=== PATIENT | male | born 1985 | race Caucasian/White ===

== ENCOUNTER 2016-10-11 13:04 | Observation (INO) | payer SELFPAY ==
[~2016-10-11] VITALS: Ht 172.7 cm; Wt 80.3 kg
[2016-10-11] MEDS ORDERED: ONDANSETRON INJ 2 MG/ML 2 ML VIAL IV STA ×2 (13:47→15:11)
[2016-10-11] MEDS ORDERED: SODIUM CHLORIDE 0.9% 1000ML 2,000 ML IV STA (13:47)
[2016-10-11 13:57] LABS: BASO % 0.3 %; BASO ABS # 0.02 K/uL (0-0.2); COMPLETE YES; EOS % 0.3 %; HEMATOCRIT 41.3 % (42-52); IG% 0.3 %; LYMPH % 11.7 %; LYMPH ABS # 0.68 K/uL (1.2-3.4); MEAN CORPUSCULAR HEMOGLOBIN 36.7 pg (25-34); MEAN CORPUSCULAR HGB CONC 36.3 g/dl (32-36); MEAN PLATELET VOLUME 9.7 fL (7.4-10.4); MONO % 12.2 %; NEUT % 75.2 %; PLATELET COUNT 125 K/uL (130-400); RED BLOOD COUNT 4.09 M/uL (4.7-6.1); WHITE BLOOD COUNT 5.82 K/uL (4.8-10.8)
[2016-10-11 14:15] LABS: BUN/CREATININE RATIO 4.3 (10-20); CALCIUM 8.8 mg/dl (8.5-10.1); CREATININE 0.9 mg/dl (0.60-1.40); POTASSIUM 3.4 mmol/L (3.5-5.1)
--- NOTE | 2016-10-11 14:31 | DIAGNOSTIC IMAGING REPORT ---
PA CHEST WITH ABDOMINAL SERIES CLINICAL HISTORY: Nausea and vomiting of several days' duration. Epigastric abdominal pain. FINDINGS: 2 PA chest radiographs are obtained. No prior studies are available for comparison at the time of dictation. The cardiomediastinal silhouette is unremarkable. The lungs and pleural spaces are clear. No pneumothorax is seen. The bony thorax is grossly intact. Supine and erect abdominal radiographs are obtained. No prior studies are available for comparison at the time of dictation. There is a nonobstructed abdominal bowel gas pattern. No evidence of intraperitoneal free air is seen. There are no abnormal abdominal calcifications. The lumbosacral spine and bony pelvis appear intact. IMPRESSION: 1. No active disease in the chest. 2. Nonobstructed abdominal bowel gas pattern. Electronically signed by: Ghanshyam Jimenez M.D. 10/11/2016 2:29 PM
--- NOTE | 2016-10-11 14:55 | DIAGNOSTIC IMAGING REPORT ---
ABDOMINAL ULTRASOUND, RIGHT UPPER QUADRANT HISTORY: Epigastric pain. COMPARISON: The bowel series performed earlier today. FINDINGS: Hepatic echogenicity is increased. This suggests fatty infiltration. No hepatic lesions are identified. There is no biliary ductal dilatation. No gallstones are identified. The pancreas is obscured by overlying bowel gas. There is no right hydronephrosis. IMPRESSION: 1. No gallstones or biliary ductal dilatation. 2. Fatty liver. 3. Largely obscured pancreas. Electronically signed by: Josue Peña M.D. 10/11/2016 2:53 PM
[2016-10-11] MEDS ORDERED: MECLIZINE HCL 25 MG TAB PO STA (15:11)
[2016-10-11] MEDS ORDERED: OPTIRAY 320 IV PRN (15:15)
--- NOTE | 2016-10-11 15:44 | DIAGNOSTIC IMAGING REPORT ---
CT ABD/PELVIS IV CONTRAST ONLY CLINICAL HISTORY: Abdominal pain, nausea, vomiting. COMPARISON STUDY: Biliary ultrasound dated 10/11/2016 TECHNIQUE: Following the IV administration of 116 mL of Optiray-320, CT scan of the abdomen and pelvis was performed from the lung bases to the proximal femurs. Images are reviewed in the axial, sagittal, and coronal planes. IV contrast was administered without complication. CT DOSE: 337.73 mGy.cm FINDINGS: Lower chest: The heart is normal in size and configuration, without pericardial effusion. The lung bases and pleural spaces are clear. Liver: There is severe hepatic steatosis. No focal masses are visualized. Gallbladder: Unremarkable. Spleen: Normal in size and attenuation. Pancreas: Unremarkable. Adrenal glands: Unremarkable. Kidneys: There is symmetric renal cortical enhancement. The kidneys are normal in size without hydronephrosis. Bowel: There are no transition zones indicate bowel obstruction. The appendix appears normal. There is no acute diverticulitis. There is proliferation of the submucosal fat within the colon. Peritoneum: There is no intraperitoneal free air or abdominal ascites. Vasculature: The abdominal aorta is normal in course and caliber. Adenopathy: None. Pelvic viscera: The bladder, and pelvic viscera are unremarkable. Skeletal structures: No destructive osseous lesions are seen. IMPRESSION: 1. No evidence of bowel obstruction. No evidence of free air 2. Normal appendix 3. No evidence of acute diverticulitis 4. Hepatic steatosis 5. Nonspecific proliferation of the submucosal fat within the colon. Correlation with any history of inflammatory bowel disease is recommended. Electronically signed by: Jabier Puentes M.D. 10/11/2016 3:42 PM
[2016-10-11 16:14] LABS: URINE APPEARANCE CLEAR (CLEAR); URINE BILIRUBIN NEG (NEG); URINE COLOR YELLOW; URINE NITRITE NEG (NEG); URINE SPECIFIC GRAVITY 1.023 (1.000-1.030); UROBILINOGEN NEG (NEG); ZZUR CULT IF INDIC CLEAN CATCH NO
[2016-10-11 16:17] LABS: MANUAL MICROSCOPIC REQUIRED? NO; REVIEW REQ? NO
[2016-10-11] MEDS ORDERED: ONDANSETRON INJ 2 MG/ML 2 ML VIAL IV PRN (17:00)
[2016-10-11] MEDS ORDERED: LORAZEPAM 2 MG/ML 1 ML VIAL IV PRN (17:00)
[2016-10-11] MEDS ORDERED: IV FLUIDS COMPLETED PRN (17:15)
--- NOTE | 2016-10-11 17:28 | History and Physical ---
History & Physical Date & Time of Service: Oct 11, 2016 at 16:58 Chief Complaint: Shaking, Dizzy, Nauseous, Upset Stomach Primary Care Physician: No Doctor, Assigned History of Present Illness Source: patient This is a 31 yo m presenting to us with N&V and general malaise. He notes that for the last couple of days he has been suffering from epigastric pain, N&V and fatigue. He did have some improvement yesterday with significant worsening today. He has not vomited today however continues to be nauseated. He did have a fever with chills and diaphoresis two days prior. He has not travelled recently, no recent antibiotics, no sick contacts, no "new" or "suspect" foods. He had some improvement of symptoms after receiving medication in ED His abdominal pain is epigastric ache and a 3/10. No radiation. No significant agg/ alleviating factors. He does note that he drinks usually on weekends to excess but not on a daily basis. Past Medical/Surgical History No significant PMHx Family History Patient reports no known family medical history. Social History Smoking Status: Current Every Day Smoker (5-10 cig/ day x 10 years) Smokeless Tobacco Use: No Alcohol Use: binge on weekends Drug Use: none Marital Status: single Housing status: lives with family Multi-Drug Resistant Organisms History of MDRO: No Allergies Coded Allergies: Amoxicillin (Unverified Allergy, Intermediate, UNKNOWN, 10/11/16) CHILDHOOD ALLERGY, PER MOM Penicillins (Unverified Allergy, Intermediate, UNKNOWN, 10/11/16) CHILDHOOD ALLERGY, PER MOM. Home Medications No Active Prescriptions or Reported Meds Review of Systems Constitutional: + chills, + fever, + sweats, + weakness Eyes: No worsening of vision ENT: No hearing loss Respiratory: No cough, No dyspnea at rest, No dyspnea on exertion, No shortness of breath, No sputum, No wheezing Cardiovascular: No chest pain Abdomen: + nausea, + vomiting, No constipation, No diarrhea, No pain Musculoskeletal: No joint pain, No muscle pain Genitourinary - Male: No dysuria, No hematuria Neurologic: + weakness, No memory loss, No numbness/tingling Psychiatric: No anxiety, No depression symptoms Endocrine: + fatigue Integumentary: No rash Physical Exam Vital Signs Date Time Temp Pulse Resp B/P Pulse Ox O2 Delivery O2 Flow Rate FiO2 10/11/16 15:06 37.4 73 20 146/84 97 10/11/16 14:08 78 16 146/89 98 10/11/16 13:21 37.0 100 18 151/92 98 Room Air General Appearance: WD/WN, no apparent distress Head: normocephalic, atraumatic Eyes: normal inspection ENT: normal ENT inspection Neck: supple Respiratory/Chest: lungs clear, normal breath sounds, no respiratory distress, no accessory muscle use Cardiovascular: regular rate, rhythm, no murmur Abdomen/GI: normal bowel sounds, non tender, soft, no organomegaly Back: normal inspection, no CVA tenderness Extremities/Musculoskelatal: normal inspection, no calf tenderness, no pedal edema Neurologic/Psych: alert, normal mood/affect, oriented x 3 Skin: normal color, warm/dry, no rash Lymphatic: no adenopathy Diagnostics Laboratory Results Results Past 24 Hours Test 10/11/16 13:45 10/11/16 15:53 Range/Units White Blood Count 5.82 4.8-10.8 K/uL Red Blood Count 4.09 4.7-6.1 M/uL Hemoglobin 15.0 14.0-18.0 g/dL Hematocrit 41.3 42-52 % Mean Corpuscular Volume 101.0 80-100 fL Mean Corpuscular Hemoglobin 36.7 25-34 pg Mean Corpuscular Hemoglobin Concent 36.3 32-36 g/dl Platelet Count 125 130-400 K/uL Mean Platelet Volume 9.7 7.4-10.4 fL Neutrophils (%) (Auto) 75.2 % Lymphocytes (%) (Auto) 11.7 % Monocytes (%) (Auto) 12.2 % Eosinophils (%) (Auto) 0.3 % Basophils (%) (Auto) 0.3 % Neutrophils # (Auto) 4.37 1.4-6.5 K/uL Lymphocytes # (Auto) 0.68 1.2-3.4 K/uL Monocytes # (Auto) 0.71 0.11-0.59 K/uL Eosinophils # (Auto) 0.02 0-0.5 K/uL Basophils # (Auto) 0.02 0-0.2 K/uL RDW Standard Deviation 45.8 36.4-46.3 fL RDW Coefficient of Variation 12.4 11.5-14.5 % Immature Granulocyte % (Auto) 0.3 % Immature Granulocyte # (Auto) 0.02 0.00-0.02 K/uL Sodium Level 139 136-145 mmol/L Potassium Level 3.4 3.5-5.1 mmol/L Chloride Level 102 98-107 mmol/L Carbon Dioxide Level 24 21-32 mmol/L Anion Gap 13.0 3-11 mmol/L Blood Urea Nitrogen 4 7-18 mg/dl Creatinine 0.90 0.60-1.40 mg/dl Est Creatinine Clear Calc Drug Dose 122.8 ml/min Estimated GFR () 131.4 Estimated GFR (Non- 113.4 BUN/Creatinine Ratio 4.3 10-20 Random Glucose 119 70-99 mg/dl Calcium Level 8.8 8.5-10.1 mg/dl Total Bilirubin 2.6 0.2-1 mg/dl Direct Bilirubin 0.9 0-0.2 mg/dl Aspartate Amino Transf (AST/SGOT) 196 15-37 U/L Alanine Aminotransferase (ALT/SGPT) 129 12-78 U/L Alkaline Phosphatase 92 45-117 U/L Total Protein 7.8 6.4-8.2 gm/dl Albumin 3.7 3.4-5.0 gm/dl Lipase 212 73-393 U/L Urine Color YELLOW Urine Appearance CLEAR CLEAR Urine pH 8.0 4.5-7.5 Urine Specific Stanton 1.023 1.000-1.030 Urine Protein NEG NEG Urine Glucose (UA) NEG NEG Urine Ketones NEG NEG Urine Occult Blood NEG NEG Urine Nitrite NEG NEG Urine Bilirubin NEG NEG Urine Urobilinogen NEG NEG Urine Leukocyte Esterase SMALL NEG Urine WBC (Auto) 1-5 0-5 /hpf Urine RBC (Auto) 0-4 0-4 /hpf Urine Hyaline Casts (Auto) 0 0-5 /lpf Urine Epithelial Cells (Auto) 5-10 0-5 /lpf Urine Bacteria (Auto) NEG NEG Diagnostic Radiology [~ rep ct add3]] CT ABD/PELVIS IV CONTRAST ONLY CLINICAL HISTORY: Abdominal pain, nausea, vomiting. COMPARISON STUDY: Biliary ultrasound dated 10/11/2016 TECHNIQUE: Following the IV administration of 116 mL of Optiray-320, CT scan of the abdomen and pelvis was performed from the lung bases to the proximal femurs. Images are reviewed in the axial, sagittal, and coronal planes. IV contrast was administered without complication. CT DOSE: 337.73 mGy.cm FINDINGS: Lower chest: The heart is normal in size and configuration, without pericardial effusion. The lung bases and pleural spaces are clear. Liver: There is severe hepatic steatosis. No focal masses are visualized. Gallbladder: Unremarkable. Spleen: Normal in size and attenuation. Pancreas: Unremarkable. Adrenal glands: Unremarkable. Kidneys: There is symmetric renal cortical enhancement. The kidneys are normal in size without hydronephrosis. Bowel: There are no transition zones indicate bowel obstruction. The appendix appears normal. There is no acute diverticulitis. There is proliferation of the submucosal fat within the colon. Peritoneum: There is no intraperitoneal free air or abdominal ascites. Vasculature: The abdominal aorta is normal in course and caliber. Adenopathy: None. Pelvic viscera: The bladder, and pelvic viscera are unremarkable. Skeletal structures: No destructive osseous lesions are seen. IMPRESSION: 1. No evidence of bowel obstruction. No evidence of free air 2. Normal appendix 3. No evidence of acute diverticulitis 4. Hepatic steatosis 5. Nonspecific proliferation of the submucosal fat within the colon. Correlation with any history of inflammatory bowel disease is recommended. [~ rep ct add3]] PA CHEST WITH ABDOMINAL SERIES CLINICAL HISTORY: Nausea and vomiting of several days' duration. Epigastric abdominal pain. FINDINGS: 2 PA chest radiographs are obtained. No prior studies are available for comparison at the time of dictation. The cardiomediastinal silhouette is unremarkable. The lungs and pleural spaces are clear. No pneumothorax is seen. The bony thorax is grossly intact. Supine and erect abdominal radiographs are obtained. No prior studies are available for comparison at the time of dictation. There is a nonobstructed abdominal bowel gas pattern. No evidence of intraperitoneal free air is seen. There are no abnormal abdominal calcifications. The lumbosacral spine and bony pelvis appear intact. IMPRESSION: 1. No active disease in the chest. 2. Nonobstructed abdominal bowel gas pattern. ABDOMINAL ULTRASOUND, RIGHT UPPER QUADRANT HISTORY: Epigastric pain. COMPARISON: The bowel series performed earlier today. FINDINGS: Hepatic echogenicity is increased. This suggests fatty infiltration. No hepatic lesions are identified. There is no biliary ductal dilatation. No gallstones are identified. The pancreas is obscured by overlying bowel gas. There is no right hydronephrosis. IMPRESSION: 1. No gallstones or biliary ductal dilatation. 2. Fatty liver. 3. Largely obscured pancreas. Impression Assessment and Plan This is a 31 yo m with transaminitis and elevated bilirubin. As the AST>ALT and considering the recent holidays the patient may have elevated transaminases because of alcohol abuse. There is suspicion that there is chronic alcohol use because of the low potassium and PLT as well as a fatty infiltrated liver. Dehydration most likely secondary to viral infection - NSS / KCL 20 @ 200 cc/h - Obs admission on med surg - Influenza swab - continue to encourage oral rehydration - Zofran for nausea Transaminitis most likely secondary to alcohol abuse in the presence of a fatty liver - GGT and Mg levels - Hep C screen - recheck in am - Ativan for alcohol withdrawal - consider discussion about alcohol abuse and need for rehab Hypokalemia - supp with NSS/ KCL - recheck in am DVT prophylaxis - Enoxaparin FULL CODE Level of Care Med/Surg Resuscitation Status FULL RESUSCITATION VTE Prophylaxis VTE Risk Assessment Done? Y/N: Yes Risk Level: Low Given or contraindicated: Enoxaparin (Lovenox)SQ Social Service Consult None Apply Note Total Time: Critical Care 30 - 74 minutes Assessment and Plan ATTENDING ADDENDUM: I have seen and examined this patient, have directed their medical care, and agree with the H&P as noted above. Patient is a 31-year-old male who has developed epigastric discomfort only by nausea and vomiting 3-4 days ago, then had a sleep interval of feeling better not being back to normal, the symptoms returned again today with more intensity. He does not have any sick exposures that he is aware of , has not had any recent travels, questionable food intakes at home or at restaurants. He typically is in good health and his several illnesses unusual for him. He was noted to have abnormal liver tests on emergency department laboratories, which prompted referral from emergency department for admission. The patient denies chest pain, palpitations, shortness of breath, cough, lower extremity swelling, vision change, hearing change, sore throat, fevers, chills, sweats, weight change, pelvic pain, blood in urine or stool, dysuria, urinary frequency or urgency, memory loss, rash, abnormal bruising or bleeding, imbalance, focal weakness, arthralgias or myalgias, back or neck pain, night sweats, or allergy symptoms. The review of systems is otherwise negative other than for that already noted above, and at least 10 systems have been reviewed. The patient is awake, well-developed and adequately nourished, alert and oriented 3, normocephalic and atraumatic, looks fatigued and pale, lying in bed and in no acute distress. HEENT--PERRL, EOMI, mucous membranes and oropharynx dry. Neck--supple, no JVD or bruits, thyroid normal, trachea midline, no adenopathy. Heart--normal S1 and S2, no extra beats, no murmurs, rubs or gallops. Lungs--clear bilaterally with good air movement, no respiratory distress, no accessory muscle use. Abdomen--normal bowel sounds and soft, nontender and nondistended, no hernias or masses, no organomegaly. Extremities--no cyanosis, clubbing or edema. There are good distal pulses b/l. Dermatologic--normal skin turgor, normal color, warm and dry, no abnormal lymph nodes, no rash. Neurologic--cranial nerves II through XII grossly intact. Rheumatologic--normal range of motion, nontender, muscles and joints. Psychiatric--normal affect. Assessment and plan: Patient with general malaise symptoms, focal issues in the abdomen and abnormal liver enzymes. CT of the pelvis as does show fatty liver, and during his question of he does report weekly alcohol use, suspect that she is more toward her daily level. Next We will order a flu swab to rule out influenza. If his flu swab is negative , his primary treatment will be that of aggressive fluid rehydration and symptomatic treatment of nausea and vomiting with Zofran, and Protonix for acid reduction. If his epigastric pain is persistent and/or worsen, he may require an EGD to assess for possible gastric ulcer.
[2016-10-11 17:55] VITALS: O2SAT 95
[2016-10-11 18:18] LABS: INR 1.1 (0.9-1.1); PROTHROMBIN TIME (PATIENT) 11.4 SECONDS (9.0-12.0)
[2016-10-11 18:20] VITALS: Ht 172.7 cm; Wt 80.3 kg
[2016-10-11] MEDS ORDERED: LORAZEPAM INJ 1 MG in SYRINGE 0.5 ML IV PRN (18:30)
--- NOTE | 2016-10-11 18:31 | EMERGENCY ROOM VISIT NOTE ---
History Report prepared by Scribe: Rachel Kaur Under the Supervision of: Dr. Rustam Manuel D.O. First contact with patient: 13:46 Chief Complaint: NAUSEA Stated Complaint: SHAKING, DIZZY, NAUSEOUS, UPSET STOMACH Nursing Triage Summary: pt arrives to triage shaking. reports he is dizzy nauseated and vomiting x 3 today. had stomach flu the other day. has been feeling hot and cold. History of Present Illness The patient is a 31 year old male who presents to the Emergency Room with complaints of intermittent nausea for the past 3 days. He reports he had the stomach flu 2 days ago and was vomiting persistently. He is currently experiencing some pain in his umbilical region and has been vomiting again, after not vomiting at all yesterday. He reports his vomit is yellowish-clear. His last bowel movement was earlier today and normal. He denies any diarrhea. He admits to the chills but denies any fevers or cough or cold symptoms. He denies any recent sick contacts. He still has both his gallbladder and appendix. The patient denies any headache, change in vision, chest pain, shortness of breath, pain with urination, and melena. 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 A total of 10 systems reviewed and were otherwise negative. Past Medical & Surgical Medical Problems: (1) Elevated bilirubin (2) Transaminitis Social History Smoking Status: Current Every Day Smoker Alcohol Use: occasionally Drug Use: none Marital Status: single Housing Status: lives alone Occupation Status: employed Current/Historical Medications No Active Prescriptions or Reported Meds Allergies Coded Allergies: Amoxicillin (Unverified Allergy, Intermediate, UNKNOWN, 10/11/16) CHILDHOOD ALLERGY, PER MOM Penicillins (Unverified Allergy, Intermediate, UNKNOWN, 10/11/16) CHILDHOOD ALLERGY, PER MOM. Physical Exam Vital Signs Date Time Temp Pulse Resp B/P Pulse Ox O2 Delivery O2 Flow Rate FiO2 10/11/16 15:06 37.4 73 20 146/84 97 10/11/16 14:08 78 16 146/89 98 10/11/16 13:21 37.0 100 18 151/92 98 Room Air Physical Exam GENERAL: Patient is alert, sitting up in bed, disheveled appearing, well nourished, no acute distress, non-toxic EYE EXAM: normal conjunctiva OROPHARYNX: no exudate, no erythema, lips, buccal mucosa, and tongue normal and mucous membranes are moist NECK: supple, no nuchal rigidity, no adenopathy, non-tender LUNGS: Clear to auscultation. Normal chest wall mechanics HEART: no murmurs, S1 normal and S2 normal ABDOMEN: abdomen soft, tender to palpation in epigastric region, normo-active bowel sounds, no masses, no rebound or guarding. BACK: Back is symmetrical on inspection and there is no deformity, no midline tenderness, no CVA tenderness. SKIN: no rashes and no bruising UPPER EXTREMITIES: upper extremities are grossly normal. LOWER EXTREMITIES: No pitting edema. NEURO EXAM: Normal sensorium, cranial nerves II-XII grossly intact, normal speech, no gross weakness of arms, no gross weakness of legs. Gross sensation intact. Medical Decision & Procedures ER Provider Diagnostic Interpretation: This X-Ray was reviewed and interpreted by myself and the radiologist. PA CHEST WITH ABDOMINAL SERIES IMPRESSION: 1. No active disease in the chest. 2. Nonobstructed abdominal bowel gas pattern. Electronically signed by: Ghanshyam Jimenez M.D. 10/11/2016 2:29 PM This Ultrasound was reviewed and interpreted by the radiologist and reviewed by myself. ABDOMINAL ULTRASOUND, RIGHT UPPER QUADRANT IMPRESSION: 1. No gallstones or biliary ductal dilatation. 2. Fatty liver. 3. Largely obscured pancreas. Electronically signed by: Josue Peña M.D. 10/11/2016 2:[address] scan was reviewed and interpreted by the radiologist and reviewed by myself. CT ABD/PELVIS IV CONTRAST ONLY IMPRESSION: 1. No evidence of bowel obstruction. No evidence of free air 2. Normal appendix 3. No evidence of acute diverticulitis 4. Hepatic steatosis 5. Nonspecific proliferation of the submucosal fat within the colon. Correlation with any history of inflammatory bowel disease is recommended. Electronically signed by: Jabier Puentes M.D. 10/11/2016 3:42 PM Laboratory Results 10/11/16 13:45 Red Blood Count 4.09, Mean Corpuscular Volume 101.0, Mean Corpuscular Hemoglobin 36.7, Mean Corpuscular Hemoglobin Concent 36.3, Mean Platelet Volume 9.7, Neutrophils (%) (Auto) 75.2, Lymphocytes (%) (Auto) 11.7, Monocytes (%) ( Auto) 12.2, Eosinophils (%) (Auto) 0.3, Basophils (%) (Auto) 0.3, Neutrophils # (Auto) 4.37, Lymphocytes # (Auto) 0.68, Monocytes # (Auto) 0.71, Eosinophils # ( Auto) 0.02, Basophils # (Auto) 0.02 10/11/16 13:45 Test 10/11/16 13:45 10/11/16 15:53 White Blood Count 5.82 K/uL (4.8-10.8) Red Blood Count 4.09 M/uL (4.7-6.1) Hemoglobin 15.0 g/dL (14.0-18.0) Hematocrit 41.3 % (42-52) Mean Corpuscular Volume 101.0 fL (80-100) Mean Corpuscular Hemoglobin 36.7 pg (25-34) Mean Corpuscular Hemoglobin Concent 36.3 g/dl (32-36) Platelet Count 125 K/uL (130-400) Mean Platelet Volume 9.7 fL (7.4-10.4) Neutrophils (%) (Auto) 75.2 % Lymphocytes (%) (Auto) 11.7 % Monocytes (%) (Auto) 12.2 % Eosinophils (%) (Auto) 0.3 % Basophils (%) (Auto) 0.3 % Neutrophils # (Auto) 4.37 K/uL (1.4-6.5) Lymphocytes # (Auto) 0.68 K/uL (1.2-3.4) Monocytes # (Auto) 0.71 K/uL (0.11-0.59) Eosinophils # (Auto) 0.02 K/uL (0-0.5) Basophils # (Auto) 0.02 K/uL (0-0.2) RDW Standard Deviation 45.8 fL (36.4-46.3) RDW Coefficient of Variation 12.4 % (11.5-14.5) Immature Granulocyte % (Auto) 0.3 % Immature Granulocyte # (Auto) 0.02 K/uL (0.00-0.02) Anion Gap 13.0 mmol/L (3-11) Est Creatinine Clear Calc Drug Dose 122.8 ml/min Estimated GFR () 131.4 Estimated GFR (Non- 113.4 BUN/Creatinine Ratio 4.3 (10-20) Calcium Level 8.8 mg/dl (8.5-10.1) Magnesium Level 1.7 mg/dl (1.8-2.4) Total Bilirubin 2.6 mg/dl (0.2-1) Direct Bilirubin 0.9 mg/dl (0-0.2) Aspartate Amino Transf (AST/SGOT) 196 U/L (15-37) Alanine Aminotransferase (ALT/SGPT) 129 U/L (12-78) Alkaline Phosphatase 92 U/L (45-117) Total Protein 7.8 gm/dl (6.4-8.2) Albumin 3.7 gm/dl (3.4-5.0) Lipase 212 U/L (73-393) Urine Color YELLOW Urine Appearance CLEAR (CLEAR) Urine pH 8.0 (4.5-7.5) Urine Specific [place] 1.023 (1.000-1.030) Urine Protein NEG (NEG) Urine Glucose (UA) NEG (NEG) Urine Ketones NEG (NEG) Urine Occult Blood NEG (NEG) Urine Nitrite NEG (NEG) Urine Bilirubin NEG (NEG) Urine Urobilinogen NEG (NEG) Urine Leukocyte Esterase SMALL (NEG) Urine WBC (Auto) 1-5 /hpf (0-5) Urine RBC (Auto) 0-4 /hpf (0-4) Urine Hyaline Casts (Auto) 0 /lpf (0-5) Urine Epithelial Cells (Auto) 5-10 /lpf (0-5) Urine Bacteria (Auto) NEG (NEG) Laboratory results per my review. Medications Administered Medications (Trade) Dose Ordered Sig/Paras Route Start Time Stop Time Status Last Admin Dose Admin Sodium Chloride (Nss 1000ml) 2,000 ml @ 999 mls/hr Q2H1M STAT IV 10/11/16 13:47 10/11/16 15:47 DC 10/11/16 13:47 999 MLS/HR Ondansetron HCl (Zofran Inj) 4 mg NOW STAT IV 10/11/16 13:47 10/11/16 13:48 DC 1/2/17 14:06 4 MG Ondansetron HCl (Zofran Inj) 4 mg NOW STAT IV 10/11/16 15:11 10/11/16 15:12 DC 10/11/16 15:20 4 MG Meclizine HCl (Antivert Tab) 25 mg NOW STAT PO 10/11/16 15:11 10/11/16 15:12 DC 10/11/16 15:20 25 MG ED Course ED COURSE: Vital signs were reviewed and showed normal vital signs. The patients medical record was reviewed The above diagnostic studies were performed and reviewed. ED treatments and interventions as stated above. 1347: Zofran 4 mg IV, NSS 2000 ml @ 999 mls/hr IV. 1353: The patient was evaluated in room A10. A complete history and physical examination was performed. 1511: Meclizine 25 mg PO, Zofran 4 mg IV. 1611: I discussed the patients case with Dr. Lopez, [facility]. He recommends we hold on antibiotics and have him evaluated by hospital medicine. 1625: I discussed the patients case with Dr. Leiva, [facility] Hospitalist. The patient will be further evaluated. 1630: Upon reevaluation, the patient is resting comfortably. I discussed my findings with the patient and he understands and agrees with the treatment plan. Based on the patients age, coexisting illnesses, exam and lab findings the decision to treat as an inpatient was made. The patient remained stable while under my care. The patient will be evaluated for further management. Medical Decision Differential diagnoses includes but is not limited to gastritis, peptic ulcer disease, GERD, gallbladder disease, pancreatitis, small bowel obstruction, acute coronary syndrome, pericarditis, ischemic bowel, irritable bowel disease, irritable bowel syndrome, appendicitis, diverticulitis, malignancy, hernia, urinary tract infection, torsion, perforation, trauma, infectious. Patient is a 31-year-old male who presents the ER for epigastric abdominal pain associated with nausea vomiting. Patient does have minimal tenderness on exam. Labs show transaminitis along with slight elevation of bilirubin at 2.5. No significant leukocytosis. Also shows no gallstones and a normal CBD. CT of his abdomen pelvis is otherwise remarkable. There is no signs of cholecystitis. No fevers. Discussed with GI and patient was admitted to internal medicine for further workup of a viral gastroenteritis versus choledocholithiasis. Consults Time Called: 1610 Consulting Physician: Dr. Lopez [facility] Returned Call: 1611 I discussed the patients case with Dr. Lopez [facility]. He recommends we hold on antibiotics and have him evaluated by hospital medicine. Additional Consults: Time Called: 1620 Consulted Physician: Dr. Leiva, [facility] Hospitalist Returned Call: 1625 Additional Comments: I discussed the patients case with Dr. Leiva [facility] Hospitalist. The patient will be further evaluated. Impression Primary Impression: Transaminitis Additional Impressions: Elevated bilirubin, Epigastric abdominal pain Scribe Attestation The scribe's documentation has been prepared under my direction and personally reviewed by me in its entirety. I confirm that the note above accurately reflects all work, treatment, procedures, and medical decision making performed by me. Departure Information Dispostion Being Evaluated By Hospitalist Prescriptions No Active Prescriptions or Reported Meds Patient Instructions A Signature Page, My [facility]
[2016-10-11 18:32] VITALS: BP 131/89; PULSE 55; TEMP 36.5; O2SAT 97
[2016-10-11] MEDS: NSS + 20MEQ KCL 1000ML 1,000 ML IV SCH ×2 (18:55→23:34)
[2016-10-11] MEDS ORDERED: MAGNESIUM CHLORIDE 64MG DELAYED REL TAB PO ONE (19:45)
[2016-10-11] MEDS ORDERED: ENOXAPARIN 40 MG/0.4 ML SYR SQ SCH (20:00)
[2016-10-12 00:09] VITALS: BP 130/87; PULSE 62; TEMP 36.8; O2SAT 98
[2016-10-12] MEDS: NSS + 20MEQ KCL 1000ML 1,000 ML IV SCH (04:54)
[2016-10-12 06:11] LABS: BASO % 0.2 %; BASO ABS # 0.01 K/uL (0-0.2); COMPLETE YES; EOS % 1.4 %; HEMATOCRIT 37.9 % (42-52); IG% 0.2 %; LYMPH % 27.5 %; LYMPH ABS # 1.33 K/uL (1.2-3.4); MEAN CELL VOLUME 104.4 fL (80-100); MEAN CORPUSCULAR HEMOGLOBIN 36.6 pg (25-34); MEAN CORPUSCULAR HGB CONC 35.1 g/dl (32-36); MEAN PLATELET VOLUME 10.2 fL (7.4-10.4); MONO % 12.4 %; NEUT % 58.3 %; PLATELET COUNT 112 K/uL (130-400); RED BLOOD COUNT 3.63 M/uL (4.7-6.1); WHITE BLOOD COUNT 4.83 K/uL (4.8-10.8)
[2016-10-12 06:43] LABS: CREATININE 0.83 mg/dl (0.60-1.40)
[2016-10-12 06:44] LABS: ALB/GLOB RATIO 0.9 (0.9-2); BUN/CREATININE RATIO 3.2 (10-20); CALCIUM 8.2 mg/dl (8.5-10.1); MAGNESIUM 1.9 mg/dl (1.8-2.4); POTASSIUM 4.2 mmol/L (3.5-5.1)
[2016-10-12 07:21] VITALS: BP 130/87; PULSE 46; TEMP 36.8; O2SAT 98
[2016-10-12] MEDS ORDERED: MAGNESIUM CHLORIDE 64MG DELAYED REL TAB PO SCH (09:00)
[2016-10-12] MEDS ORDERED: THIAMINE HCL 100 MG TAB PO SCH (09:00)
[2016-10-12] MEDS ORDERED: FLINTSTONES COMPLETE CHEWABLE TAB PO SCH (09:00)
[2016-10-12 14:08] VITALS: BP 130/87; PULSE 46; TEMP 36.8; O2SAT 98
[2016-10-12] MEDS ORDERED: FLV1 PO (15:13)
[2016-10-12] MEDS ORDERED: THM100 PO (15:13)
--- NOTE | 2016-10-12 15:14 | Discharge Instructions ---
Discharge Instructions Admission Reason for Admission: Elevated Bilirubin, Transaminitis Discharge Discharge Diagnosis / Problem: General malaise symptoms abnormal liver enzyme, alcoholic Discharge Goals Goal(s): Decrease discomfort, Improve function, Increase independence, Improve disease control, Improve nutritional status, Learn about illness, Diagnostic testing, Therapeutic intervention, Prevent Disease Progression, Specific goals Activity Recommendations Activity Limitations: resume your previous activity Lifting Limitations: none Exercise/Sports Limitations: none May Resume Sexual Activity: when tolerated Shower/Bathe: no limitations . Instructions / Follow-Up Instructions / Follow-Up you have general malaise symptoms with abnormal liver enzyme and mild Jaundice , possible from alcoholic you have heavy alcohol intake/smoking you have thrombocytopenia likely from alcoholic I recommend you to go home tomorrow , but you really want to go home with your own risks today your above medical conditions need to be see by a family physician in 5-7 days , however, you don't have family physician now, you did promise me to find a family doctor very soon and follow up your medical conditions, I hope you really do so - you need to follow up with your primary care physician in 1 week, - take medication as instructed, never overdose or any misuse, or take with alcohol, because misuse of medicine may cause organ damage or , call your primary care physician if have questions of medicaitons. - call your primary care physician OR go to local emergency room if has any fever/chill, chest pain, shortness of breathing, nausea/vomiting/abdominal pain , facial droop/slurry speech/local weakness, or if has any questions. - fall precaution - diet as instructed - you should understand that it is important to follow up the above instruction , and "not following the above instruction" may cause delayed or missed care of your medical conditions which may cause permanent organ damage and even . Current Hospital Diet Patient's current hospital diet: Regular Diet Discharge Diet Recommended Diet: Regular Diet Pending Studies Studies pending at discharge: no Medical Emergencies . Who to Call and When: Medical Emergencies: If at any time you feel your situation is an emergency, please call 911 immediately. . Non-Emergent Contact Non-Emergency issues call your: Primary Care Provider . . "Provider Documentation" section prepared by Sergio Rich. VTE Core Measure Inpt VTE Proph given/why not?: Enoxaparin (Lovenox)SQ
--- NOTE | 2016-10-12 15:15 | Discharge Summary ---
Discharge Summary Admission Date: Oct 11, 2016 at 16:59 Discharge Date: Oct 12, 2016 Discharge Disposition: Home Principal Diagnosis: general malaise symptoms with abnormal liver enzyme and mild Jaundice Problems/Secondary Diagnoses: general malaise symptoms with abnormal liver enzyme and mild Jaundice , possible from alcoholic heavy alcohol intake/smoking thrombocytopenia likely from alcoholic Procedures: no Consultations: no Medication Reconciliation New Medications: Folic Acid (Folic Acid) 1 Mg Tab 1 MG PO QAM for 30 Days, #30 TAB Thiamine HCl (Vitamin B-1) 100 Mg Tab 100 MG PO QAM for 30 Days, #30 TAB Discharge Exam feeling good, no c/o, eating, voiding good, no more malaise Review of Systems: Constitutional: No chills, No fatigue, No fever, No problem reported, No sweats, No weakness, No weight loss Eyes: No diplopia, No discharge, No eye pain, No problem reported, No redness, No worsening of vision ENT: No dental problems, No hearing loss, No nasal symptoms, No problem reported, No sore throat, No tinnitus, No trouble swallowing, No unusual epistaxis Respiratory: No cough, No dyspnea at rest, No dyspnea on exertion, No hemoptysis, No problem reported, No shortness of breath, No sputum, No wheezing Cardiovascular: No PND, No chest pain, No claudication, No edema, No orthopnea, No palpitations, No problem reported Abdomen: No GI bleeding, No constipation, No diarrhea, No nausea, No pain, No problem reported, No vomiting Musculoskeletal: No calf pain, No joint pain, No muscle pain, No problem reported, No swelling Genitourinary - Male: No dysuria, No hematuria, No impotence, No lesions, No penile discharge, No problem reported, No urinary frequency, No urinary hesitancy, No urinary incontinence, No urinary retention, No urinary urgency Neurologic: No balance problems, No memory loss, No numbness/tingling, No paralysis, No problem reported, No vertigo, No weakness Psychiatric: No anhedonism, No anxiety, No depression symptoms, No insomnia , No problem reported, No substance abuse Endocrine: No excessive thirst, No excessive urination, No fatigue, No problem reported Hematologic / Lymphatic: No abnormal bleeding/bruising, No clotting problems , No night sweats, No problem reported, No swollen lymph nodes Integumentary: No bleeding, No color change, No itch, No new/changing skin lesions, No problem reported, No rash Physical Exam: General Appearance: WD/WN, no apparent distress Eyes: normal inspection, PERRL, EOMI ENT: normal ENT inspection, hearing grossly normal Neck: supple, no adenopathy, thyroid normal Respiratory/Chest: chest non-tender, lungs clear, normal breath sounds, no respiratory distress Cardiovascular: regular rate, rhythm, no edema, no gallop, no JVD Abdomen / GI: normal bowel sounds, non tender, soft, no organomegaly, no pulsatile mass Extremities: normal inspection, no calf tenderness, normal capillary refill , no pedal edema, normal range of motion 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 As the AST>ALT and considering the recent holidays the patient may have elevated transaminases because of alcohol abuse. There is suspicion that there is chronic alcohol use because of the low potassium and PLT as well as a fatty infiltrated liver. Dehydration most likely secondary to viral infection - NSS / KCL 20 @ 200 cc/h - Obs admission on med surg - Influenza swab , was negative - continue to encourage oral rehydration - Zofran for nausea Transaminitis most likely secondary to alcohol abuse in the presence of a fatty liver - GGT and Mg levels - Hep C screen - recheck in am - Ativan for alcohol withdrawal - discussed about alcohol abuse and need for rehab, patient and mom declined Hypokalemia - supp with NSS/ KCL I feel pt need to stay over night, to make sure tolerated diet, adn liver function test stable, and trend down, however, he really want to go home with own risks, I will asked him to sign ama DVT prophylaxis - Enoxaparin FULL CODE Instructions / Follow-Up you have general malaise symptoms with abnormal liver enzyme and mild Jaundice , possible from alcoholic you have heavy alcohol intake/smoking you have thrombocytopenia likely from alcoholic I recommend you to go home tomorrow , but you really want to go home with your own risks today your above medical conditions need to be see by a family physician in 5-7 days , however, you don't have family physician now, you did promise me to find a family doctor very soon and follow up your medical conditions, I hope you really do so - you need to follow up with your primary care physician in 1 week, - take medication as instructed, never overdose or any misuse, or take with alcohol, because misuse of medicine may cause organ damage or , call your primary care physician if have questions of medicaitons. - call your primary care physician OR go to local emergency room if has any fever/chill, chest pain, shortness of breathing, nausea/vomiting/abdominal pain , facial droop/slurry speech/local weakness, or if has any questions. - fall precaution - diet as instructed - you should understand that it is important to follow up the above instruction , and "not following the above instruction" may cause delayed or missed care of your medical conditions which may cause permanent organ damage and even . Total Time Spent: Greater than 30 minutes This includes examination of the patient, discharge planning, medication reconciliation, and communication with other providers. Discharge Instructions Please refer to the electronic Patient Visit Report (Discharge Instructions) for additional information.
== END 2016-10-12 16:00 | disposition home or self-care (01) ==
LOC: ENRESERVTM → ENRESERVDT → C.EDB 13:07 → C.MS2W 16:59
PROVIDERS: ADMIT Hospitalist; ATTEND Hospitalist
DX: R53.81 Other malaise (principal); R74.9 Abnormal serum enzyme level, unspecified; E87.6 Hypokalemia; F10.10 Alcohol abuse, uncomplicated; F17.210 Nicotine dependence, cigarettes, uncomplicated; R11.2 Nausea with vomiting, unspecified; R17 Unspecified jaundice; E86.0 Dehydration; D69.6 Thrombocytopenia, unspecified

== ENCOUNTER 2017-07-19 18:43 | Emergency (ER) | payer SELFPAY ==
[~2017-07-19] VITALS: Ht 177.8 cm; Wt 84.1 kg
[~2017-07-19 18:43] MED LIST: FLV1 PO; THM100 PO
[2017-07-19 18:45] VITALS: BP 114/80; PULSE 127; TEMP 36.9; O2SAT 97; Ht 177.8 cm; Wt 84.1 kg
== END 2017-07-19 20:03 | disposition left against medical advice (07) ==
LOC: C.EDB 18:44 → C.EDA 20:03
DX: R56.9 Unspecified convulsions (principal)

== ENCOUNTER 2017-09-29 16:51 | Inpatient (IN) | payer OTHER ==
[~2017-09-29] VITALS: Ht 177.8 cm; Wt 86.5 kg
--- NOTE | 2017-09-29 17:18 | EMERGENCY ROOM VISIT NOTE ---
History Report prepared by Eric: Gallo Verdugo Under the Supervision of: Dr. Jhonatan Austin M.D. First contact with patient: 16:56 Chief Complaint: LEG PAIN,LEG INJURY Stated Complaint: LEFT LEG PAIN History of Present Illness The patient is a 31 year old male who presents to the Emergency Room with complaints of worsening left leg pain that began a week ago. He rates his pain as a 5/10 in severity. The patient states that the pain is located in his calf region and he describes the pain as pounding sensation. He reports that the pain is relieved with elevating his leg and worsened with standing on his leg. The patient states he has a family history of blood clots but denies any personal history of blood clots. He denies leg swelling, leg redness, and recent long travels. Source of History: patient Onset: a week ago Position: leg (left) Symptom Intensity: 5/10 Quality: other (pressure) Timing: worsening Modifying Factors (Worsening): other (standing) Modifying Factors (Relieving): elevation Review of Systems See HPI for pertinent positives & negatives. A total of 10 systems reviewed and were otherwise negative. Past Medical & Surgical Medical Problems: (1) DVT (deep venous thrombosis) (2) Elevated bilirubin (3) Transaminitis Family History Blood clots Social History Smoking Status: Current Every Day Smoker Alcohol Use: occasionally Drug Use: none Marital Status: single Housing Status: lives alone Occupation Status: employed Current/Historical Medications No Active Prescriptions or Reported Meds Allergies Coded Allergies: Acetaminophen (Verified Allergy, Intermediate, ELEVATED FEVER, 09/29/17) Amoxicillin (Verified Allergy, Intermediate, UNKNOWN, 09/29/17) CHILDHOOD ALLERGY, PER MOM Penicillins (Verified Allergy, Intermediate, UNKNOWN, 09/29/17) CHILDHOOD ALLERGY, PER MOM. Physical Exam Vital Signs Date Time Temp Pulse Resp B/P (MAP) Pulse Ox O2 Delivery O2 Flow Rate FiO2 09/29/17 21:32 93 18 115/74 95 Room Air 09/29/17 20:19 120 18 137/88 95 Room Air 09/29/17 18:45 105 09/29/17 18:40 98 Room Air 09/29/17 18:40 97 Room Air 09/29/17 18:28 94 20 115/79 97 Room Air 09/29/17 16:53 37.0 129 18 118/ 97 Room Air Physical Exam GENERAL: Patient is a healthy-appearing well-nourished 31 year old male. HEAD: Normocephalic atraumatic EYES: Ocular movements intact pupils equal and react to light OROPHARYNX mucous membranes are moist no exudates present no erythema or edema present NECK: Supple no nuchal rigidity CHEST: Good equal expansion LUNGS: Clear and equal to auscultation CARDIAC: Normal S1 and S2 ABDOMEN: Soft nontender no guarding BACK: No CVA tenderness EXTREMITIES: No pain upon palpation normal muscle strength in all groups no clubbing cyanosis or edema. No evidence of compartment syndrome. Able to perform dorsal and plantar flexion. Good range of motion of knee without any pain. NEURO: Patient is following commands and answering questions appropriately. Alert and oriented x3 Cranial Nerves 2-12 grossly intact Medical Decision & Procedures ER Provider Diagnostic Interpretation: Radiology results as stated below per my review and radiologist interpretation: L TIBIA/FIBULA 2 VIEWS ROUTINE CLINICAL HISTORY: 31 years-old Male presenting with Pt c/o left leg pain . TECHNIQUE: Frontal and lateral views of the left lower leg were obtained. COMPARISON: None. FINDINGS: No acute fracture or malalignment. No degenerative change. No soft tissue abnormality. IMPRESSION: No acute osseous injury. Electronically signed by: Giorgio Arnold M.D. 09/29/2017 5:26 PM Dictated Date/Time: 09/29/2017 5:22 PM LEFT LOWER EXTREMITY VENOUS DOPPLER HISTORY: Left leg swelling. COMPARISON STUDY: None. FINDINGS: There is occlusive thrombus seen within the left popliteal vein and extending into the posterior tibial and peroneal veins. The left common femoral, superficial femoral, and anterior tibial veins appear patent. IMPRESSION: DVT identified within the left popliteal, posterior tibial, and peroneal veins. Electronically signed by: Brody Currie M.D. 09/29/2017 6:11 PM Dictated Date/Time: 09/29/2017 6:10 PM CHEST CTA for PULMONARY ARTERIES CT DOSE: 432.16 mGy.cm HISTORY: Atypical chest pain. TECHNIQUE: Multiaxial CT images of the chest were performed following the intravenous administration of contrast to evaluate the pulmonary arteries. Maximal intensity projection images were also obtained. A dose lowering technique was utilized adhering to the principles of ALARA. COMPARISON STUDY: Chest 09/29/2017. FINDINGS: Normal caliber thoracic aorta with no evidence for dissection. The heart is normal in size. Small left pleural effusion. Evaluation of the pulmonary arteries is essentially nondiagnostic due to the timing of contrast and poor opacification of the pulmonary arterial tree. No filling defects seen within the bilateral lower lobe segmental or subsegmental pulmonary arteries. These are adequately opacified to assess for pulmonary embolus. The remaining pulmonary arteries are essentially nondiagnostic. No significant mediastinal or hilar lymphadenopathy. The mediastinal lymph nodes are subcentimeter in short axis diameter. No suspicious lytic or blastic osseous lesions. No pneumothorax. Bibasilar densities favor atelectasis. The upper to midlung zones are clear. Moderate abdominal ascites. Diffusely heterogeneous liver which is new from the prior study. IMPRESSION: 1. Near nondiagnostic evaluation of the pulmonary arteries due to the timing of contrast. Only the segmental and subsegmental pulmonary arteries of the bilateral lower lobes are adequately opacified and these appear to be patent. 2. Small left pleural effusion. 3. Bibasilar densities consistent with subsegmental atelectasis. 4. Moderate abdominal ascites with a diffusely heterogeneous liver which is new from the prior study. This could be due to a hepatitis, multifocal hepatic masses, or multifocal developing hepatic abscesses. Electronically signed by: Brody Currie M.D. 09/29/2017 7:40 PM Dictated Date/Time: 09/29/2017 7:33 PM CHEST ONE VIEW PORTABLE HISTORY: Atypical CHEST PAIN COMPARISON: Chest 10/11/2016. FINDINGS: The heart is normal in size. No pleural effusions. No pneumothorax. Bibasilar linear densities consistent with subsegmental atelectasis. Otherwise, the lungs are clear. IMPRESSION: No acute process. Electronically signed by: Brody Currie M.D. 09/29/2017 6:48 PM Dictated Date/Time: 09/29/2017 6:47 PM ABDOMEN AND PELVIS CT WITH IV CONTRAST CT DOSE: 934.07 mGycm HISTORY: Generalized abdominal pain. TECHNIQUE: Multiaxial CT images of the abdomen and pelvis were performed following the use of intravenous contrast. A dose lowering technique was utilized adhering to the principles of ALARA. COMPARISON STUDY: Abdomen and pelvis CT 10/11/2016. FINDINGS: Small left pleural effusion. Bibasilar densities consistent with subsegmental atelectasis. No pneumoperitoneum. No pneumatosis. No suspicious lytic or blastic osseous lesions. The kidneys, spleen, and adrenal glands are unremarkable. Moderate ascites is seen throughout the abdomen and pelvis. Normal bladder. Submucosal fat throughout the majority of the colon is again noted. This is not significantly changed. No definite bowel wall thickening or obstruction. Questionable thickening within the jejunal loops within the left side the abdomen is likely due to underdistention. The pancreas enhances normally. There is peripancreatic edema near the head. This is likely related to the ascites. However, an acute pancreatitis could also have a similar appearance. No retroperitoneal lymphadenopathy. Normal caliber abdominal aorta. Diffusely heterogeneous liver which is also new from the prior study. Mildly thickened gallbladder wall. Focal hypodensity within the caudate lobe favors focal fat. This measures proximally 4 cm. There is a normal vessel running through this area of hypodensity. The visualized hepatic and portal veins are patent. IMPRESSION: 1. Interval development of a diffusely heterogeneous liver and moderate ascites. Findings favor a hepatic abnormality such as hepatitis or developing hepatic failure. Correlation with LFTs is recommended. Multiple hepatic masses is considered less likely given the normal course of the hepatic vessels. 2. Submucosal fat throughout the majority of the colon, unchanged. This is consistent with a chronic inflammatory process. 3. No evidence for bowel obstruction. 4. Small left pleural effusion. 5. Mildly thickened gallbladder wall. This nonspecific but likely due to the edema rather than a cholecystitis. Clinical correlation recommended. 6. Edema at the pancreatic head which demonstrates normal enhancement. This is also likely due to the ascites. However, correlation with pancreatic enzymes is recommended to exclude the less likely possibility of acute pancreatitis. Electronically signed by: Brody Currie M.D. 09/29/2017 8:16 PM Dictated Date/Time: 09/29/2017 8:07 PM Laboratory Results 09/29/17 18:49 Red Blood Count 4.00, Mean Corpuscular Volume 105.8, Mean Corpuscular Hemoglobin 37.0, Mean Corpuscular Hemoglobin Concent 35.0, Mean Platelet Volume 10.1, Neutrophils (%) (Auto) 76.5, Lymphocytes (%) (Auto) 12.2, Monocytes (%) ( Auto) 9.6, Eosinophils (%) (Auto) 1.0, Basophils (%) (Auto) 0.3, Neutrophils # ( Auto) 9.74, Lymphocytes # (Auto) 1.56, Monocytes # (Auto) 1.23, Eosinophils # ( Auto) 0.13, Basophils # (Auto) 0.04 09/29/17 18:49 Test 09/29/17 18:49 09/29/17 19:03 09/29/17 20:37 White Blood Count 12.75 K/uL (4.8-10.8) Red Blood Count 4.00 M/uL (4.7-6.1) Hemoglobin 14.8 g/dL (14.0-18.0) Hematocrit 42.3 % (42-52) Mean Corpuscular Volume 105.8 fL (80-100) Mean Corpuscular Hemoglobin 37.0 pg (25-34) Mean Corpuscular Hemoglobin Concent 35.0 g/dl (32-36) Platelet Count 142 K/uL (130-400) Mean Platelet Volume 10.1 fL (7.4-10.4) Neutrophils (%) (Auto) 76.5 % Lymphocytes (%) (Auto) 12.2 % Monocytes (%) (Auto) 9.6 % Eosinophils (%) (Auto) 1.0 % Basophils (%) (Auto) 0.3 % Neutrophils # (Auto) 9.74 K/uL (1.4-6.5) Lymphocytes # (Auto) 1.56 K/uL (1.2-3.4) Monocytes # (Auto) 1.23 K/uL (0.11-0.59) Eosinophils # (Auto) 0.13 K/uL (0-0.5) Basophils # (Auto) 0.04 K/uL (0-0.2) RDW Standard Deviation 56.9 fL (36.4-46.3) RDW Coefficient of Variation 14.8 % (11.5-14.5) Immature Granulocyte % (Auto) 0.4 % Immature Granulocyte # (Auto) 0.05 K/uL (0.00-0.02) Prothrombin Time 14.5 SECONDS (9.0-12.0) Prothromb Time International Ratio 1.4 (0.9-1.1) Activated Partial Thromboplast Time 27.9 SECONDS (21.0-31.0) Partial Thromboplastin Ratio 1.1 Est Creatinine Clear Calc Drug Dose 151.9 ml/min Estimated GFR () 141.7 Estimated GFR (Non- 122.2 BUN/Creatinine Ratio 2.7 (10-20) Calcium Level 7.8 mg/dl (8.5-10.1) Iron Level 143 mcg/dl (35-175) Total Iron Binding Capacity 145 mcg/dl (250-450) Ferritin 753.2 ng/ml (8.0-388.0) Total Bilirubin 5.1 mg/dl (0.2-1) Direct Bilirubin 3.1 mg/dl (0-0.2) Aspartate Amino Transf (AST/SGOT) 135 U/L (15-37) Alanine Aminotransferase (ALT/SGPT) 43 U/L (12-78) Alkaline Phosphatase 162 U/L (45-117) Troponin I < 0.015 ng/ml (0-0.045) Total Protein 8.1 gm/dl (6.4-8.2) Albumin 2.1 gm/dl (3.4-5.0) Lipase 159 U/L (73-393) Hepatitis C Antibody NEG (NEG) Bedside Hemoglobin 15.3 g/dl (14.0-18.0) Bedside Hematocrit 45 % (42-52) Bedside Sodium 139 mEq/L (135-144) Bedside Potassium 3.4 mEq/L (3.3-5.0) Bedside Chloride 96 mEq/L (101-112) Bedside Total CO2 27 mEq/l (24-31) Anion Gap 19.0 mmol/L (16-25) Bedside Blood Urea Nitrogen < 3 mg/dl (7-18) Bedside Creatinine 0.8 mg/dl (0.6-1.3) Bedside Glucose (other) 93 mg/dl (70-99) Bedside Ionized Calcium (Bennett) 1.03 mmol/l (1.12-1.32) Labs reviewed by ED physician. Medications Administered Medications (Trade) Dose Ordered Sig/Paras Route Start Time Stop Time Status Last Admin Dose Admin Potassium Chloride (Bethany Ciel Elix) 40 meq NOW STAT PO 09/29/17 19:19 09/29/17 19:20 DC 09/29/17 19:33 40 MEQ Sodium Chloride 1,000 ml @ 999 mls/hr Q1H1M STAT IV 09/29/17 19:34 09/29/17 20:34 DC 09/29/17 19:38 999 MLS/HR Clonidine HCl ([id number] 0.3mg/24hr Patch) 1 patch NOW STAT TD 09/29/17 20:13 09/29/17 20:14 DC 09/29/17 20:32 1 PATCH Lorazepam (Ativan Inj) 0.5 mg NOW STAT IV 09/29/17 20:15 09/29/17 20:16 DC 09/29/17 20:30 0.5 MG ECG Indication: tachycardia Rate (beats per minute): 99 Rhythm: normal sinus Findings: no acute ischemic change, no ectopy ED Course 1657: Past medical records reviewed. The patient was evaluated in room A11B. A complete history and physical examination was performed. 1918: Ordered Potassium Chloride 40 meq PO. 1933: Ordered Sodium Chloride 1000 ml @ 999 mls/hr IV. 2012: Ordered Clonidine HCL 1 patch TD. 2014: Ordered Ativan Injection 0.5 mg IV. 2020: I reevaluated the patient and he is resting comfortably. I updated him on his results. 2029: I discussed the patients case with Dr. Wells, [facility] Hospitalist. He suggests call gastroenterology for further consult. 2032: Paged Gastroenterology 2041: I discussed the patients case with Dr. Anaya, [facility]. He suggests having a hospitalist further evaluate the patient. 2058: I discussed the patient's case with Dr. Wells, [facility] Hospitalist. He understands the patient's condition and agrees to accept the patient. The patient will be further evaluated. Medical Decision Differential diagnosis: Etiologies such as DVT, musculoskeletal, infection, joint effusion, trauma, lymphedema, idiopathic, CHF, as well as others were entertained. This is a 31-year-old male who presents to the emergency department complaining of left leg pain. The patient was sent for an ultrasound of his left lower extremity which was concerning for DVT. Based on this fact along with the fact that the patient was tachycardic I'm concerned that he may have a PE therefore he was sent for CAT scan of the chest. Both the patient's CAT scan as well as his laboratory work was concerning for acute liver failure therefore both a coagulation panel as well as a liver profile panel were drawn. In addition the patient was sent for CAT scan of the abdomen and pelvis. This was concerning for a large amount of ascites. I did discuss the case with remarketing rep on-call who felt that the patient could be admitted. I did discuss the case with amount any hospitalist who agreed to admit the patient. Patient was given potassium in the emergency department. Medication Reconcilliation Current Medication List: was personally reviewed by me Blood Pressure Screening Patient's blood pressure: Normal blood pressure Consults Time Called: 2029 Consulting Physician: Dr. Wells [facility] Hospitalist Returned Call: 2029 I discussed the patients case with Dr. Wells [facility] Hospitalist. He suggests call gastroenterology for further consult. Additional Consults: Time Called: 2032 Consulted Physician: [facility] Returned Call: 2041 Additional Comments: I discussed the patients case with [facility]. He suggests having a hospitalist further evaluate the patient. Time Called: 2058 Consulted Physician: Dr. Wells [facility] Hospitalist Returned Call: 2058 Additional Comments: I discussed the patient's case with Dr. Wells [facility] Hospitalist. He understands the patient's condition and agrees to accept the patient. The patient will be further evaluated. Impression Primary Impression: Deep vein thrombosis Additional Impression: Liver failure Scribe Attestation The scribe's documentation has been prepared under my direction and personally reviewed by me in its entirety. I confirm that the note above accurately reflects all work, treatment, procedures, and medical decision making performed by me. Departure Information Dispostion Being Evaluated By Hospitalist Prescriptions No Active Prescriptions or Reported Meds Referrals No Doctor, Assigned (PCP) Patient Instructions My [facility] Problem Qualifiers Primary Impression: Deep vein thrombosis DVT location: lower extremity Affected thrombotic vein of extremity: unspecified vein of extremity Chronicity: acute Laterality: left Qualified Codes: I82.402 - Acute embolism and thrombosis of unspecified deep veins of left lower extremity Additional Impression: Liver failure Liver failure chronicity: acute Hepatic coma status: without hepatic coma Qualified Codes: K72.00 - Acute and subacute hepatic failure without coma
--- NOTE | 2017-09-29 17:27 | DIAGNOSTIC IMAGING REPORT ---
L TIBIA/FIBULA 2 VIEWS ROUTINE CLINICAL HISTORY: 31 years-old Male presenting with Pt c/o left leg pain . TECHNIQUE: Frontal and lateral views of the left lower leg were obtained. COMPARISON: None. FINDINGS: No acute fracture or malalignment. No degenerative change. No soft tissue abnormality. IMPRESSION: No acute osseous injury. Electronically signed by: Giorgio Arnold M.D. 09/29/2017 5:26 PM Dictated Date/Time: 09/29/2017 5:22 PM
--- NOTE | 2017-09-29 18:12 | DIAGNOSTIC IMAGING REPORT ---
LEFT LOWER EXTREMITY VENOUS DOPPLER HISTORY: Left leg swelling. COMPARISON STUDY: None. FINDINGS: There is occlusive thrombus seen within the left popliteal vein and extending into the posterior tibial and peroneal veins. The left common femoral, superficial femoral, and anterior tibial veins appear patent. IMPRESSION: DVT identified within the left popliteal, posterior tibial, and peroneal veins. Electronically signed by: Brody Currie M.D. 09/29/2017 6:11 PM Dictated Date/Time: 09/29/2017 6:10 PM
[2017-09-29] MEDS ORDERED: OPTIRAY 320 IV PRN ×2 (18:45→19:45)
--- NOTE | 2017-09-29 18:49 | DIAGNOSTIC IMAGING REPORT ---
CHEST ONE VIEW PORTABLE HISTORY: Atypical CHEST PAIN COMPARISON: Chest 10/11/2016. FINDINGS: The heart is normal in size. No pleural effusions. No pneumothorax. Bibasilar linear densities consistent with subsegmental atelectasis. Otherwise, the lungs are clear. IMPRESSION: No acute process. Electronically signed by: Brody Currie M.D. 09/29/2017 6:48 PM Dictated Date/Time: 09/29/2017 6:47 PM
[2017-09-29 19:15] LABS: BASO % 0.3 %; BASO ABS # 0.04 K/uL (0-0.2); EOS ABS # 0.13 K/uL (0-0.5); HEMATOCRIT 42.3 % (42-52); HEMOGLOBIN 14.8 g/dL (14.0-18.0); IG# 0.05 K/uL (0.00-0.02); LYMPH % 12.2 %; LYMPH ABS # 1.56 K/uL (1.2-3.4); MEAN CELL VOLUME 105.8 fL (80-100); MEAN PLATELET VOLUME 10.1 fL (7.4-10.4); MONO % 9.6 %; MONO ABS # 1.23 K/uL (0.11-0.59); NEUT % 76.5 %; NEUT ABS # 9.74 K/uL (1.4-6.5); PLATELET COUNT 142 K/uL (130-400); RED CELL DISTRIBUTION WIDTH CV 14.8 % (11.5-14.5); RED CELL DISTRIBUTION WIDTH SD 56.9 fL (36.4-46.3); WHITE BLOOD COUNT 12.75 K/uL (4.8-10.8)
[2017-09-29 19:17] LABS: ISTAT CREATININE 0.8 mg/dl (0.6-1.3); ISTAT IONIZED CALCIUM 1.03 mmol/l (1.12-1.32); ISTAT POTASSIUM 3.4 mEq/L (3.3-5.0); ISTAT SODIUM 139 mEq/L (135-144)
[2017-09-29] MEDS ORDERED: POTASSIUM CHLORIDE 20 MEQ/15 ML UDC PO STA (19:19)
[2017-09-29 19:25] LABS: INR 1.4 (0.9-1.1); PTT PATIENT 27.9 SECONDS (21.0-31.0)
[2017-09-29] MEDS ORDERED: SODIUM CHLORIDE 0.9% 1000ML 1,000 ML IV STA (19:34)
--- NOTE | 2017-09-29 19:41 | DIAGNOSTIC IMAGING REPORT ---
CHEST CTA for PULMONARY ARTERIES CT DOSE: 432.16 mGy.cm HISTORY: Atypical chest pain. TECHNIQUE: Multiaxial CT images of the chest were performed following the intravenous administration of contrast to evaluate the pulmonary arteries. Maximal intensity projection images were also obtained. A dose lowering technique was utilized adhering to the principles of ALARA. COMPARISON STUDY: Chest 09/29/2017. FINDINGS: Normal caliber thoracic aorta with no evidence for dissection. The heart is normal in size. Small left pleural effusion. Evaluation of the pulmonary arteries is essentially nondiagnostic due to the timing of contrast and poor opacification of the pulmonary arterial tree. No filling defects seen within the bilateral lower lobe segmental or subsegmental pulmonary arteries. These are adequately opacified to assess for pulmonary embolus. The remaining pulmonary arteries are essentially nondiagnostic. No significant mediastinal or hilar lymphadenopathy. The mediastinal lymph nodes are subcentimeter in short axis diameter. No suspicious lytic or blastic osseous lesions. No pneumothorax. Bibasilar densities favor atelectasis. The upper to midlung zones are clear. Moderate abdominal ascites. Diffusely heterogeneous liver which is new from the prior study. IMPRESSION: 1. Near nondiagnostic evaluation of the pulmonary arteries due to the timing of contrast. Only the segmental and subsegmental pulmonary arteries of the bilateral lower lobes are adequately opacified and these appear to be patent. 2. Small left pleural effusion. 3. Bibasilar densities consistent with subsegmental atelectasis. 4. Moderate abdominal ascites with a diffusely heterogeneous liver which is new from the prior study. This could be due to a hepatitis, multifocal hepatic masses, or multifocal developing hepatic abscesses. Electronically signed by: Brody Currie M.D. 09/29/2017 7:40 PM Dictated Date/Time: 09/29/2017 7:33 PM
[2017-09-29 19:42] LABS: ALBUMIN 2.1 gm/dl (3.4-5.0); ALT/SGPT 43 U/L (12-78); BLOOD UREA NITROGEN 2 mg/dl (7-18); CALCIUM 7.8 mg/dl (8.5-10.1); CARBON DIOXIDE 28 mmol/L (21-32); CREATININE 0.75 mg/dl (0.60-1.40); GLUCOSE 86 mg/dl (70-99); LIPASE 159 U/L (73-393); POTASSIUM 3.3 mmol/L (3.5-5.1); SODIUM 134 mmol/L (136-145)
[2017-09-29 19:44] LABS: ALKALINE PHOSPHATASE 162 U/L (45-117); AST/SGOT 135 U/L (15-37); TOTAL PROTEIN 8.1 gm/dl (6.4-8.2)
[2017-09-29] MEDS ORDERED: CLONIDINE HCL 0.3 MG/24 HR TRANSDERM SYS TD STA (20:13)
[2017-09-29] MEDS ORDERED: LORAZEPAM 2 MG/ML 1 ML VIAL IV STA (20:15)
--- NOTE | 2017-09-29 20:17 | DIAGNOSTIC IMAGING REPORT ---
ABDOMEN AND PELVIS CT WITH IV CONTRAST CT DOSE: 934.07 mGycm HISTORY: Generalized abdominal pain. TECHNIQUE: Multiaxial CT images of the abdomen and pelvis were performed following the use of intravenous contrast. A dose lowering technique was utilized adhering to the principles of ALARA. COMPARISON STUDY: Abdomen and pelvis CT 10/11/2016. FINDINGS: Small left pleural effusion. Bibasilar densities consistent with subsegmental atelectasis. No pneumoperitoneum. No pneumatosis. No suspicious lytic or blastic osseous lesions. The kidneys, spleen, and adrenal glands are unremarkable. Moderate ascites is seen throughout the abdomen and pelvis. Normal bladder. Submucosal fat throughout the majority of the colon is again noted. This is not significantly changed. No definite bowel wall thickening or obstruction. Questionable thickening within the jejunal loops within the left side the abdomen is likely due to underdistention. The pancreas enhances normally. There is peripancreatic edema near the head. This is likely related to the ascites. However, an acute pancreatitis could also have a similar appearance. No retroperitoneal lymphadenopathy. Normal caliber abdominal aorta. Diffusely heterogeneous liver which is also new from the prior study. Mildly thickened gallbladder wall. Focal hypodensity within the caudate lobe favors focal fat. This measures proximally 4 cm. There is a normal vessel running through this area of hypodensity. The visualized hepatic and portal veins are patent. IMPRESSION: 1. Interval development of a diffusely heterogeneous liver and moderate ascites. Findings favor a hepatic abnormality such as hepatitis or developing hepatic failure. Correlation with LFTs is recommended. Multiple hepatic masses is considered less likely given the normal course of the hepatic vessels. 2. Submucosal fat throughout the majority of the colon, unchanged. This is consistent with a chronic inflammatory process. 3. No evidence for bowel obstruction. 4. Small left pleural effusion. 5. Mildly thickened gallbladder wall. This nonspecific but likely due to the edema rather than a cholecystitis. Clinical correlation recommended. 6. Edema at the pancreatic head which demonstrates normal enhancement. This is also likely due to the ascites. However, correlation with pancreatic enzymes is recommended to exclude the less likely possibility of acute pancreatitis. Electronically signed by: Brody Currie M.D. 09/29/2017 8:16 PM Dictated Date/Time: 09/29/2017 8:07 PM
[2017-09-29] MEDS ORDERED: ALUMINUM/MAGNESIUM/SIMETH (MAALOX MAX) 30 ML UDC PO PRN (21:45)
[2017-09-29] MEDS ORDERED: ONDANSETRON INJ 2 MG/ML 2 ML VIAL IV PRN (21:45)
[2017-09-29] MEDS ORDERED: POLYETHYLENE (MIRALAX) 17 GM PACK PO PRN (21:45)
[2017-09-29] MEDS ORDERED: MAGNESIUM HYDROXIDE SUSP 30 ML UDC PO PRN (21:45)
--- NOTE | 2017-09-29 22:22 | History and Physical ---
History & Physical Date & Time of Service: Sep 29, 2017 at 22:17 Chief Complaint: Left Leg Pain Primary Care Physician: No Doctor, Assigned History of Present Illness Source: patient This is a 31 y/o M who presents with Left lower leg pain x 1 week. He reports it was sudden onset and persistent. He reports the pain is throbbing. It is relieved with elevation and worsened with standing. He denies any recent travel , immobility or surgery. In the ER, he was found to have a DVT of the left lower extremity. He does have a family history of blood clots. Concurrently his bilirubin was elevated and CT abdomen was concerning for a developing hepatitis. The patient reports drinking 6 beers a day for the last several years. He denies drug use and other high risk behaviors. He does smoke 10 Cigs a day. He denies abdominal pain, nausea, vomiting Family History Blood clots Social History Smoking Status: Current Every Day Smoker Drug Use: none Marital Status: single Housing status: lives with family Occupational Status: employed Multi-Drug Resistant Organisms History of MDRO: No Allergies Coded Allergies: Acetaminophen (Verified Allergy, Intermediate, ELEVATED FEVER, 09/29/17) Amoxicillin (Verified Allergy, Intermediate, UNKNOWN, 09/29/17) CHILDHOOD ALLERGY, PER MOM Penicillins (Verified Allergy, Intermediate, UNKNOWN, 09/29/17) CHILDHOOD ALLERGY, PER MOM. Home Medications No Active Prescriptions or Reported Meds Review of Systems Constitutional: No fever, No chills, No sweats Respiratory: No cough, No sputum, No wheezing, No shortness of breath, No dyspnea on exertion, No dyspnea at rest Abdomen: No pain, No nausea, No vomiting, No diarrhea Musculoskeletal: + calf pain, No joint pain, No muscle pain, No swelling Genitourinary - Male: No hematuria, No dysuria, No urinary frequency Physical Exam Vital Signs Date Time Temp Pulse Resp B/P (MAP) Pulse Ox O2 Delivery O2 Flow Rate FiO2 09/29/17 21:32 93 18 115/74 95 Room Air 09/29/17 20:19 120 18 137/88 95 Room Air 09/29/17 18:45 105 09/29/17 18:40 98 Room Air 09/29/17 18:40 97 Room Air 09/29/17 18:28 94 20 115/79 97 Room Air 09/29/17 16:53 37.0 129 18 118/ 97 Room Air General Appearance: no apparent distress Eyes: PERRL, EOMI ENT: hearing grossly normal Respiratory/Chest: lungs clear, normal breath sounds, no respiratory distress, no accessory muscle use Cardiovascular: regular rate, rhythm, no edema Abdomen/GI: normal bowel sounds, non tender, soft, + distended Extremities/Musculoskelatal: normal inspection, normal range of motion, + calf tenderness (left sided) Neurologic/Psych: no motor/sensory deficits, alert, oriented x 3 Diagnostics Laboratory Results Results Past 24 Hours Test 09/29/17 18:49 09/29/17 19:03 09/29/17 20:37 Range/Units White Blood Count 12.75 4.8-10.8 K/uL Red Blood Count 4.00 4.7-6.1 M/uL Hemoglobin 14.8 14.0-18.0 g/dL Hematocrit 42.3 42-52 % Mean Corpuscular Volume 105.8 80-100 fL Mean Corpuscular Hemoglobin 37.0 25-34 pg Mean Corpuscular Hemoglobin Concent 35.0 32-36 g/dl Platelet Count 142 130-400 K/uL Mean Platelet Volume 10.1 7.4-10.4 fL Neutrophils (%) (Auto) 76.5 % Lymphocytes (%) (Auto) 12.2 % Monocytes (%) (Auto) 9.6 % Eosinophils (%) (Auto) 1.0 % Basophils (%) (Auto) 0.3 % Neutrophils # (Auto) 9.74 1.4-6.5 K/uL Lymphocytes # (Auto) 1.56 1.2-3.4 K/uL Monocytes # (Auto) 1.23 0.11-0.59 K/uL Eosinophils # (Auto) 0.13 0-0.5 K/uL Basophils # (Auto) 0.04 0-0.2 K/uL RDW Standard Deviation 56.9 36.4-46.3 fL RDW Coefficient of Variation 14.8 11.5-14.5 % Immature Granulocyte % (Auto) 0.4 % Immature Granulocyte # (Auto) 0.05 0.00-0.02 K/uL Prothrombin Time 14.5 9.0-12.0 SECONDS Prothromb Time International Ratio 1.4 0.9-1.1 Activated Partial Thromboplast Time 27.9 21.0-31.0 SECONDS Partial Thromboplastin Ratio 1.1 Sodium Level 134 136-145 mmol/L Potassium Level 3.3 3.5-5.1 mmol/L Chloride Level 100 98-107 mmol/L Carbon Dioxide Level 28 21-32 mmol/L Anion Gap 7.0 19.0 16-25 mmol/L Blood Urea Nitrogen 2 7-18 mg/dl Creatinine 0.75 0.60-1.40 mg/dl Est Creatinine Clear Calc Drug Dose 151.9 ml/min Estimated GFR () 141.7 Estimated GFR (Non- 122.2 BUN/Creatinine Ratio 2.7 10-20 Random Glucose 86 70-99 mg/dl Calcium Level 7.8 8.5-10.1 mg/dl Iron Level 143 35-175 mcg/dl Total Iron Binding Capacity 145 250-450 mcg/dl Ferritin 753.2 8.0-388.0 ng/ml Total Bilirubin 5.1 0.2-1 mg/dl Direct Bilirubin 3.1 0-0.2 mg/dl Aspartate Amino Transf (AST/SGOT) 135 15-37 U/L Alanine Aminotransferase (ALT/SGPT) 43 12-78 U/L Alkaline Phosphatase 162 45-117 U/L Troponin I < 0.015 0-0.045 ng/ml Total Protein 8.1 6.4-8.2 gm/dl Albumin 2.1 3.4-5.0 gm/dl Lipase 159 73-393 U/L Hepatitis C Antibody NEG NEG Bedside Hemoglobin 15.3 14.0-18.0 g/dl Bedside Hematocrit 45 42-52 % Bedside Sodium 139 135-144 mEq/L Bedside Potassium 3.4 3.3-5.0 mEq/L Bedside Chloride 96 101-112 mEq/L Bedside Total CO2 27 24-31 mEq/l Bedside Blood Urea Nitrogen < 3 7-18 mg/dl Bedside Creatinine 0.8 0.6-1.3 mg/dl Bedside Glucose (other) 93 70-99 mg/dl Bedside Ionized Calcium (Bennett) 1.03 1.12-1.32 mmol/l Impression Assessment and Plan This is a 31 y/o M who presents with left lower ext pain 2/2 to DVT. LLE DVT Involving left popliteal, posterior tibial and peroneal veins Placed on Heparin Drip without bolus thrombophilia markers pending Elevated Bili, AST Concern for developing hepatitis / early cirrhosis Hepatitis panel pending Iron studies- ?hemochromatosis Discriminate score of 21 Consult GI- ?liver biopsy Methylpred 10 mg IV TID portal vein patent on ct abd. Alcohol Abuse Risk of withdrawal- Ativan PRN Place on protocol if showing signs Smoker Smoking cessation patient declines nicotine patch Code: Full Resident Physician Supervision Note: I was present with Dr. Adrian during the history and exam. I discussed the case with the resident and agree with the findings and plan as documented in the note. Any exceptions or clarifications are listed here: 31 y/o M suspected history of ETOH abuse, presenting primarily with leg pain. Diagnosed with a LLE DVT in ER - of more concern is significant hepatitis, ascites and possible cirrhosis on abdominal imaging - he had a fatty liver so that the findings are new over the past year. Bilirubin is significantly elevated , portal veins are patent on CT. Alcoholic etiology is possible although he states he drinks a six pack daily only and is relatively young. OE AAO x 3 - no distress S1,2 R CTAB Abdomen is distended , nontender No CCE Jaundice and icterus present P: Pt placed on Lovenox for Tx of DVT - INR is subtherapeutic presently despite degree of liver failure Reg his hepatitis and liver failure - we have no definitive etiology - iron levels are low, CT abdomen shows patent vasculature, denies Acetaminophen use although a level is pending - antitrypsin level and Hep serologies autoimmune studies are also pending. A GI consult is requested. His DF score does not meet criteria for steroid use if this is indeed alcoholic hep. He denies a history of alcohol withdrawal but is placed on a protocol as he may not be forthcoming reg quantification. If his condition progresses, it may be prudent to consider transfer to a tertiary facility Documented By: Lionel Wells VTE Prophylaxis VTE Risk Assessment Done? Y/N: Yes Risk Level: Moderate
[2017-09-29] MEDS: HEPARIN 25,000 UNIT/500ML D5W 500 ML IV PRN ×2 (22:32→23:19)
[2017-09-29 22:33] VITALS: O2SAT 95
[2017-09-29] MEDS ORDERED: LORAZEPAM 2 MG/ML 1 ML VIAL IV PRN (22:45)
[2017-09-29 22:50] VITALS: BP 120/84; PULSE 95; TEMP 37.5; O2SAT 95
[2017-09-30] MEDS ORDERED: METHYLPREDNISOLONE IV 10 MG in SYRINGE 0 ML IV SCH
[2017-09-30 00:19] VITALS: Ht 177.8 cm; Wt 86.5 kg
[2017-09-30] MEDS ORDERED: MULTI-VITAMIN INFUSION INJ 10 ML, THIAMINE HCL INJ 100 MG, FoLIC ACID INJ 1 MG in SODIU... IV ONE (00:30)
[2017-09-30] MEDS ORDERED: SODIUM CHLORIDE 0.9% 1000ML 1,000 ML IV SCH (02:30)
[2017-09-30 05:53] LABS: HEMATOCRIT 38.7 % (42-52); HEMOGLOBIN 13.3 g/dL (14.0-18.0); MEAN CELL VOLUME 106.9 fL (80-100); MEAN CORPUSCULAR HEMOGLOBIN 36.7 pg (25-34); MEAN CORPUSCULAR HGB CONC 34.4 g/dl (32-36); PLATELET COUNT 135 K/uL (130-400); RED CELL DISTRIBUTION WIDTH CV 14.9 % (11.5-14.5); RED CELL DISTRIBUTION WIDTH SD 58.5 fL (36.4-46.3); WHITE BLOOD COUNT 7.32 K/uL (4.8-10.8)
[2017-09-30 06:28] LABS: PTT PATIENT 72.1 SECONDS (21.0-31.0)
[2017-09-30] MEDS: HEPARIN 25,000 UNIT/500ML D5W 500 ML IV PRN ×5 (07:03→23:02)
[2017-09-30 07:18] VITALS: BP 104/66; PULSE 81; TEMP 36.9; O2SAT 93
[2017-09-30] MEDS ORDERED: INFLUENZA VIRUS QUAD VACCINE 0.5 ML SYR IM. ONE (08:00)
[2017-09-30] MEDS ORDERED: INFLUENZA ADMINISTRATION CHARGE ONE (08:00)
[2017-09-30] MEDS: METOPROLOL TARTRATE 25 MG TAB PO SCH ×3 (09:45→21:45)
--- NOTE | 2017-09-30 10:15 | Family Medicine Progress Note ---
Progress Note Date of Service Sep 30, 2017. Subjective Braxton feels well today. Denies any pain, diarrhea, vomiting. He reports he drinks 6 beers per day. 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 He reports feeling fine, declined getting therapeutic paracentesis done earlier today. Constitutional: No fever, No chills, No sweats, No weight loss, No weakness Eyes: No worsening of vision ENT: No hearing loss Respiratory: No cough, No sputum All Other Systems: Reviewed and Negative Medications Current Inpatient Medications Medications (Trade) Dose Ordered Sig/Paras Route Start Time Stop Time Status Last Admin Dose Admin Ioversol (Optiray 320) 111 ml UD PRN IV 09/29/17 18:45 10/03/17 18:44 Ioversol (Optiray 320) 111 ml UD PRN IV 09/29/17 19:45 10/03/17 19:44 Al Hydrox/Mg Hydrox/Simethicone (Maalox Max Susp) 15 ml Q4H PRN PO 09/29/17 21:45 10/29/17 21:44 Magnesium Hydroxide (Milk Of Magnesia Susp) 30 ml Q6H PRN PO 09/29/17 21:45 10/29/17 21:44 Polyethylene (Miralax Powder Packet) 17 gm DAILY PRN PO 09/29/17 21:45 10/29/17 21:44 Ondansetron HCl (Zofran Inj) 4 mg Q6H PRN IV 09/29/17 21:45 10/29/17 21:44 Heparin Sodium/ Dextrose 500 ml @ 24 mls/hr [id number] PRN IV 09/29/17 22:30 10/29/17 22:29 09/30/17 14:07 24 MLS/HR Lorazepam (Ativan Inj) 1 mg ONE PRN IV 09/29/17 22:45 Metoprolol Tartrate (Lopressor Tab) 12.5 mg TID PO 09/30/17 09:00 10/30/17 08:59 09/30/17 14:27 12.5 MG Thiamine HCl 200 mg/Sodium Chloride 52 ml @ 208 mls/hr BID IV 09/30/17 21:00 10/30/17 20:59 Lorazepam (Ativan Tab) PRN Dosing -Active Protocol UD PRN PO 09/30/17 10:30 10/30/17 10:29 Multivitamins (Multivitamin Tab) 1 tab QAM PO 10/01/17 09:00 10/31/17 08:59 Gabapentin (Neurontin Tab) 600 mg Q6H PO 09/30/17 16:00 09/30/17 22:01 Gabapentin (Neurontin Tab) 600 mg Q8H PO 10/01/17 06:00 10/01/17 22:01 Gabapentin (Neurontin Tab) 600 mg Q12H PO 10/02/17 10:00 10/02/17 22:01 Gabapentin (Neurontin Tab) 600 mg Q24H PO 10/03/17 22:00 10/03/17 22:01 Lorazepam 1 mg/ Syringe 1 ml @ 1 mls/min Q1H PRN IV 09/30/17 13:30 10/30/17 13:29 Furosemide (Lasix Tab) 20 mg QAM PO 10/01/17 09:00 10/31/17 08:59 Spironolactone (Aldactone Tab) 50 mg QAM PO 10/01/17 09:00 10/31/17 08:59 Objective Vital Signs Date Time Temp Pulse Resp B/P (MAP) Pulse Ox O2 Delivery O2 Flow Rate FiO2 09/30/17 15:05 36.9 74 16 115/73 (87) 93 Room Air 09/30/17 09:30 Room Air 09/30/17 07:18 36.9 81 16 104/66 (79) 93 Room Air 09/30/17 00:19 Room Air 09/29/17 23:15 Room Air 09/29/17 22:50 37.5 95 18 120/84 (96) 95 Room Air 09/29/17 22:33 97 18 120/75 95 Room Air 09/29/17 21:32 93 18 115/74 95 Room Air 09/29/17 20:19 120 18 137/88 95 Room Air 09/29/17 18:45 105 09/29/17 18:40 98 Room Air 09/29/17 18:40 97 Room Air 09/29/17 18:28 94 20 115/79 97 Room Air 09/29/17 16:53 37.0 129 18 118/ 97 Room Air Physical Exam General Appearance: WD/WN, no apparent distress, + pertinent finding Eyes: normal inspection, PERRL, + pertinent finding (sclera jaundiced) ENT: hearing grossly normal Neck: supple, no JVD Respiratory/Chest: lungs clear, normal breath sounds, no respiratory distress Cardiovascular: regular rate, rhythm, no murmur Abdomen: normal bowel sounds, non tender, soft, no organomegaly, + distended ( soft), + pertinent finding (no icterus) Extremities: non-tender, normal inspection, no pedal edema Neurologic/Psychiatric: alert, normal mood/affect, oriented x 3 Skin: no rash Laboratory Results Last 24 Hours Test 09/29/17 18:49 09/29/17 19:03 09/29/17 20:37 09/30/17 00:00 White Blood Count 12.75 K/uL Red Blood Count 4.00 M/uL Hemoglobin 14.8 g/dL Hematocrit 42.3 % Mean Corpuscular Volume 105.8 fL Mean Corpuscular Hemoglobin 37.0 pg Mean Corpuscular Hemoglobin Concent 35.0 g/dl Platelet Count 142 K/uL Mean Platelet Volume 10.1 fL Neutrophils (%) (Auto) 76.5 % Lymphocytes (%) (Auto) 12.2 % Monocytes (%) (Auto) 9.6 % Eosinophils (%) (Auto) 1.0 % Basophils (%) (Auto) 0.3 % Neutrophils # (Auto) 9.74 K/uL Lymphocytes # (Auto) 1.56 K/uL Monocytes # (Auto) 1.23 K/uL Eosinophils # (Auto) 0.13 K/uL Basophils # (Auto) 0.04 K/uL RDW Standard Deviation 56.9 fL RDW Coefficient of Variation 14.8 % Immature Granulocyte % (Auto) 0.4 % Immature Granulocyte # (Auto) 0.05 K/uL Prothrombin Time 14.5 SECONDS Prothromb Time International Ratio 1.4 Activated Partial Thromboplast Time 27.9 SECONDS Partial Thromboplastin Ratio 1.1 Sodium Level 134 mmol/L Potassium Level 3.3 mmol/L Chloride Level 100 mmol/L Carbon Dioxide Level 28 mmol/L Anion Gap 7.0 mmol/L 19.0 mmol/L Blood Urea Nitrogen 2 mg/dl Creatinine 0.75 mg/dl Est Creatinine Clear Calc Drug Dose 151.9 ml/min Estimated GFR () 141.7 Estimated GFR (Non- 122.2 BUN/Creatinine Ratio 2.7 Random Glucose 86 mg/dl Calcium Level 7.8 mg/dl Iron Level 143 mcg/dl Total Iron Binding Capacity 145 mcg/dl Ferritin 753.2 ng/ml Total Bilirubin 5.1 mg/dl Direct Bilirubin 3.1 mg/dl Aspartate Amino Transf (AST/SGOT) 135 U/L Alanine Aminotransferase (ALT/SGPT) 43 U/L Alkaline Phosphatase 162 U/L Troponin I < 0.015 ng/ml Total Protein 8.1 gm/dl Albumin 2.1 gm/dl Lipase 159 U/L Hepatitis C Antibody NEG Bedside Hemoglobin 15.3 g/dl Bedside Hematocrit 45 % Bedside Sodium 139 mEq/L Bedside Potassium 3.4 mEq/L Bedside Chloride 96 mEq/L Bedside Total CO2 27 mEq/l Bedside Blood Urea Nitrogen < 3 mg/dl Bedside Creatinine 0.8 mg/dl Bedside Glucose (other) 93 mg/dl Bedside Ionized Calcium (Bennett) 1.03 mmol/l Urine Opiates Screen NEG Urine Methadone, Qualitative NEG Urine Barbiturates NEG Urine Phencyclidine (PCP) Level NEG Ur Amphetamine/Methamphetamine NEG MDMA (Ecstasy) Screen NEG Urine Benzodiazepines Screen NEG Urine Cocaine Metabolite NEG Urine Marijuana (THC) NEG Test 09/30/17 02:30 09/30/17 05:35 09/30/17 10:19 09/30/17 12:53 White Blood Count 7.32 K/uL Red Blood Count 3.62 M/uL Hemoglobin 13.3 g/dL Hematocrit 38.7 % Mean Corpuscular Volume 106.9 fL Mean Corpuscular Hemoglobin 36.7 pg Mean Corpuscular Hemoglobin Concent 34.4 g/dl RDW Standard Deviation 58.5 fL RDW Coefficient of Variation 14.9 % Platelet Count 135 K/uL Mean Platelet Volume 10.0 fL Activated Partial Thromboplast Time 72.1 SECONDS 90.6 SECONDS Partial Thromboplastin Ratio 2.8 3.5 Erythrocyte Sedimentation Rate 14 mm/hr C-Reactive Protein 1.62 mg/dl Test 09/30/17 14:30 Assessment and Plan 31 yo M with new left leg DVT in setting of hepatitis, potentially cirrhosis, likely from alcohol use. LFT elevation, potential early cirrhosis - GI Consulted, appreciate recommendations - Discussed obtaining diagnostic & therapeutic paracentesis thoroughly w/pt with Dr Nelson as well. Pt will think about it. - Heparin drip on pause for 3 hours before tap, to be resumed afterwards - Diuretics started today. Stopped maintenance IV fluids. Chronic alcohol use, 6 beers daily - Gabapentin ordered, same with Ativan PO and IV - Multivitamin daily - Thiamine 200mg BID IV - If demonstrates any signs of withdrawal, please contact team to transfer pt to telemetry Left leg DVT - Will continue heparin drip for now until liver disease course explored - Eventually will switch to Lovenox/Coumadin, though pt will need strong recommendations to NOT drink while on coumadin - Pt booked for EGD for Tuesday to evaluate for varices since he will be placed on anticoagulation for the DVT, for now he agrees to this Dispo: Will remain in hospital over weekend likely, on med/surg Code status: Full VTE: Heparin drip Resident Physician Supervision Note: I was present with PGY3 Dr. Mena Nicole during the history and exam. I discussed the case with the resident and agree with the findings and plan as documented in the note. Any exceptions or clarifications are listed here: none. Pt w/o complaints during my visit except minimal left leg pain. No abdominal pain. He initially refused paracentesis then became agreeable to such. VSS afebrile gen - nontoxic, NAD, no signs of etoh withdrawal neck - no JVD mouth - MMM heart - RRR lungs - decreased BS bases, o/w CTA b/l abd - soft, mildly distended, BS+, no splenomegaly, no caput ext - 1+ edema b/l skin - no palmar erythema INR 1.4 abnormal LFTs ferritin 750 K 3.3 platelets 135 A/P: 1. acute hepatitis - likely etoh related; cannot r/o early cirrhosis. 2. alcohol abuse 3. LLE DVT - unprovoked, with positive family history of VTE 4. coagulopathy likely 2nd to #1 5. hypokalemia 6. hyponatremia 7. abnormal LFTs 2nd to #1 8. elevated ferritin - could be simply from etoh abuse 9. mild-mod ascites diagnostic paracentesis ordered by GI - calculate SAAG, r/o SBP (but no obvious clinical signs of such) add transferrin sat to labs to exclude hemochromatosis check mag level gabapentin protocol to help prevent etoh withdrawal folic acid and thiamine supplementation discriminant function is 16 - no indication for steroids at this time heparin drip for acute DVT of left leg no coumadin just yet - EGD planned for 10/04/17 low threshold for telemetry if pt shows signs of etoh withdrawal Documented By: Marquise Nelson MD Resident Tracking Resident Involvement: Resident Care Provided Care Provided: Adult [facility] Medicine
[2017-09-30] MEDS ORDERED: THIAMINE HCL INJ 200 MG in SODIUM CHLORIDE 0.9% 50ML 50 ML IV ONE (10:18)
[2017-09-30] MEDS ORDERED: LORAZEPAM 1 MG TAB PO PRN (10:30)
[2017-09-30] MEDS ORDERED: LORAZEPAM 2 MG/ML 1 ML VIAL IV PRN (10:30)
[2017-09-30] MEDS ORDERED: GABAPENTIN 600 MG TAB PO ONE (10:45)
--- NOTE | 2017-09-30 10:58 | Gastrointestinal Consultation ---
Gastrointestinal Consultation Date of Consultation: Sep 30, 2017 Attending Physician: Lionel Wells Consulting Physician: Danika Pearson Reason for Consultation: Early cirrhosis History of Present Illness Patient is a 31 year old male seen for suspected early liver cirrhosis. He denies any past medical hx. He presented to ED w c/o LLE pain x 1 week , and found to have DVT on the LLE currently being treated w Heparin IV. Labs showed mild leukocytosis WBC 12K, H/H 13/3/38.7, PT/INR 14.5/1.4. BM, Lipase normal. Though LFTs are elevated: Tbili 5.1, AST 135, ALT 43, AP 162. Ferritin 753. CT abd/pelvis w IV contrast showed heterogenous liver and moderate abd ascites. Less likely hepatic masses, normal course of hepatic vessels. There are also submucosal fat throughout majority of colon ? chronic inflammatory process. No signs of bowel obstruction. Gallbladder wall slightly thickened but likely due to edema. Edema also noted on pancreatic head likely due to ascites. 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 At home only takes MTV once daily. Smokes 10 cig a day, denies chewing, drinks 6 beers daily for many years. Denies any tattoos, piercing, blood transfusions, illicit drugs. Denies any family hx of IBD, autoimmune or hereditary liver diseases. He feels generally well, denies any hx of BROWN, dizziness, loss of balance, CP, SOB, weight or appetite loss, jaundice, abd pain, n/v. Doesn't feel that abd is distended. BM moves every couple of days and denies any blood in stools or diarrhea. + leg swelling as noted above. Past Medical/Surgical History Medical Problems: (1) Deep vein thrombosis Status: Acute (2) Epigastric abdominal pain Status: Acute (3) Liver failure Status: Acute Past Medical History: As above Past Surgical History: None Family History Blood clots Social History Smoking Status: Current Every Day Smoker Alcohol Use: occasionally Drug Use: none Marital Status: single Housing Status: lives alone Occupation Status: employed Allergies Coded Allergies: Acetaminophen (Verified Allergy, Intermediate, ELEVATED FEVER, 09/29/17) Amoxicillin (Verified Allergy, Intermediate, UNKNOWN, 09/29/17) CHILDHOOD ALLERGY, PER MOM Penicillins (Verified Allergy, Intermediate, UNKNOWN, 09/29/17) CHILDHOOD ALLERGY, PER MOM. Current Medications Home Meds and Scripts Medications Dose Route/Sig Max Daily Dose Days Date Category No Active Prescriptions or Reported Medications Rx Review of Systems Constitutional: No fever, No chills, No weight loss, No weakness Respiratory: No cough, No shortness of breath Cardiac: No chest pain Abdomen: No pain, No nausea, No vomiting, No diarrhea, No constipation Musculoskeletal: + see HPI (Leg swelling) Skin: No rash, No itch, No jaundice Physical Exam Date Time Temp Pulse Resp B/P (MAP) Pulse Ox O2 Delivery O2 Flow Rate FiO2 09/30/17 07:18 36.9 81 16 104/66 (79) 93 Room Air 09/30/17 00:19 Room Air 09/29/17 23:15 Room Air 09/29/17 22:50 37.5 95 18 120/84 (96) 95 Room Air 09/29/17 22:33 97 18 120/75 95 Room Air 09/29/17 21:32 93 18 115/74 95 Room Air 09/29/17 20:19 120 18 137/88 95 Room Air 09/29/17 18:45 105 09/29/17 18:40 98 Room Air 09/29/17 18:40 97 Room Air 09/29/17 18:28 94 20 115/79 97 Room Air 09/29/17 16:53 37.0 129 18 118/ 97 Room Air General Appearance: WD/WN, no apparent distress Eyes: normal inspection, PERRL, EOMI Neck: supple, no JVD, trachea midline Respiratory/Chest: normal breath sounds, no respiratory distress, no accessory muscle use Cardiovascular: regular rate, rhythm, no gallop, no murmur Abdomen: normal bowel sounds, non tender, soft, + distended (mild) Extremities: + swelling (generalized bilateral LE edema +1 ) Neurologic/Psych: alert, normal mood/affect, oriented x 3 Skin: normal color, no jaundice, no rash Laboratory Results Last 24 Hours Test 09/29/17 18:49 09/29/17 19:03 09/29/17 20:37 09/30/17 00:00 White Blood Count 12.75 K/uL Red Blood Count 4.00 M/uL Hemoglobin 14.8 g/dL Hematocrit 42.3 % Mean Corpuscular Volume 105.8 fL Mean Corpuscular Hemoglobin 37.0 pg Mean Corpuscular Hemoglobin Concent 35.0 g/dl Platelet Count 142 K/uL Mean Platelet Volume 10.1 fL Neutrophils (%) (Auto) 76.5 % Lymphocytes (%) (Auto) 12.2 % Monocytes (%) (Auto) 9.6 % Eosinophils (%) (Auto) 1.0 % Basophils (%) (Auto) 0.3 % Neutrophils # (Auto) 9.74 K/uL Lymphocytes # (Auto) 1.56 K/uL Monocytes # (Auto) 1.23 K/uL Eosinophils # (Auto) 0.13 K/uL Basophils # (Auto) 0.04 K/uL RDW Standard Deviation 56.9 fL RDW Coefficient of Variation 14.8 % Immature Granulocyte % (Auto) 0.4 % Immature Granulocyte # (Auto) 0.05 K/uL Prothrombin Time 14.5 SECONDS Prothromb Time International Ratio 1.4 Activated Partial Thromboplast Time 27.9 SECONDS Partial Thromboplastin Ratio 1.1 Sodium Level 134 mmol/L Potassium Level 3.3 mmol/L Chloride Level 100 mmol/L Carbon Dioxide Level 28 mmol/L Anion Gap 7.0 mmol/L 19.0 mmol/L Blood Urea Nitrogen 2 mg/dl Creatinine 0.75 mg/dl Est Creatinine Clear Calc Drug Dose 151.9 ml/min Estimated GFR () 141.7 Estimated GFR (Non- 122.2 BUN/Creatinine Ratio 2.7 Random Glucose 86 mg/dl Calcium Level 7.8 mg/dl Iron Level 143 mcg/dl Total Iron Binding Capacity 145 mcg/dl Ferritin 753.2 ng/ml Total Bilirubin 5.1 mg/dl Direct Bilirubin 3.1 mg/dl Aspartate Amino Transf (AST/SGOT) 135 U/L Alanine Aminotransferase (ALT/SGPT) 43 U/L Alkaline Phosphatase 162 U/L Troponin I < 0.015 ng/ml Total Protein 8.1 gm/dl Albumin 2.1 gm/dl Lipase 159 U/L Hepatitis C Antibody NEG Bedside Hemoglobin 15.3 g/dl Bedside Hematocrit 45 % Bedside Sodium 139 mEq/L Bedside Potassium 3.4 mEq/L Bedside Chloride 96 mEq/L Bedside Total CO2 27 mEq/l Bedside Blood Urea Nitrogen < 3 mg/dl Bedside Creatinine 0.8 mg/dl Bedside Glucose (other) 93 mg/dl Bedside Ionized Calcium (Bennett) 1.03 mmol/l Urine Opiates Screen NEG Urine Methadone, Qualitative NEG Urine Barbiturates NEG Urine Phencyclidine (PCP) Level NEG Ur Amphetamine/Methamphetamine NEG MDMA (Ecstasy) Screen NEG Urine Benzodiazepines Screen NEG Urine Cocaine Metabolite NEG Urine Marijuana (THC) NEG Test 09/30/17 02:30 09/30/17 05:35 09/30/17 10:19 White Blood Count 7.32 K/uL Red Blood Count 3.62 M/uL Hemoglobin 13.3 g/dL Hematocrit 38.7 % Mean Corpuscular Volume 106.9 fL Mean Corpuscular Hemoglobin 36.7 pg Mean Corpuscular Hemoglobin Concent 34.4 g/dl RDW Standard Deviation 58.5 fL RDW Coefficient of Variation 14.9 % Platelet Count 135 K/uL Mean Platelet Volume 10.0 fL Activated Partial Thromboplast Time 72.1 SECONDS Partial Thromboplastin Ratio 2.8 Impression Patient is a 31 year old male w new L leg DVT, seen for suspected liver cirrhosis/ETOH hepatitis given pattern LFT elevation, heterogenous liver appearance and ascites in CT scan. He denies hx of illicit drugs but does drink 6 beers a day. Denies any family hx of autoimmune, liver diseases, IBD. Also found to have colon submucosa fat due to chronic inflammatory process ? IBD or HIV MELD: 17 Maddrey score: 16 (not high enough to get steroids for suspected ETOH hepatitis) PLANS: - F/U on liver serologies to r/o causes of cirrhosis including AIH, PBC, PSC - Hypercoagulopathy workup per primary team (consider to include CD 59, CD 55 to r/o PNH). - Obtain therapeutic and diagnostic paracentesis - Check liver u/s w doppler to r/o Budd chiari - No signs of CBD dilation, and previous gallbladder u/s 10/2016 showed no signs of gallstones. Thus Tbili elevation less likely related to biliary obstruction. Though will consider MRCP eval if not improving. - Check stool cx, O&P, Cdiff if develops diarrhea. Discussed w pt about possible colonoscopy evaluation to r/o IBD (this can be achieved in outpt setting and should not hinder his DC plans). - He will need Coumadin for DVT and thus will provide EGD eval to r/o varices while he's inpt before Coumadin is started. Will schedule for 12/26/17. - 2g low salt diet, recommended ETOH cessation. He already is avoiding APAP as he's allergic to it. - Lasix 20mg and Spironolactone 50mg daily. - Need case management intervention to help coordinate follow up outpt care given (he is currently self pay w/o insurance and no established PCP). ? candidate for [facility]. I performed a history and physical examination of the patient, including specifically on physical exam - abdomen is soft.I have discussed the patient's management with Jeanne. 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 Patient has new onset DVT and found to have jaundice with signs of liver cirrhosis on imaging. He has ongoing alcohol abuse. At this point will need further work up to establish the underlying etiology of his liver disease. Likely alcoholic liver disease/ hepatitis. This includes HFE gene testing if UIBC is elevated, Talib's, PBC, Budd chiari, etc. Obtain MRI panc / MRCP. Thrombophilia work up. EGD prior to initiating AC given ?Cirrhosis. 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 Alcohol cessation, Nutrition support. Low dose diuretics for now.
[2017-09-30] MEDS ORDERED: LORAZEPAM 1MG IV PHA DISPENSED IV PRN (13:30)
[2017-09-30 13:35] LABS: PTT PATIENT 90.6 SECONDS (21.0-31.0)
--- NOTE | 2017-09-30 14:08 | DIAGNOSTIC IMAGING REPORT ---
DUPLEX PORTAL HEPATIC VEINS HISTORY: 31 years-old Male ascites, eval portal vein flow ascites with concern for portal vein pathology COMPARISON: CT abdomen and pelvis 09/29/2017, right upper quadrant ultrasound 10/11/2016 TECHNIQUE: Multiple real-time sonogram images of the hepatic vascular structures were obtained assessing grayscale appearance, color and spectral flow FINDINGS: The portal veins are patent with hepatopedal flow. Hepatic veins are patent with phasic waveforms. Splenic vein is also patent. Diffusely heterogeneous appearance of the liver redemonstrated measuring up to 21.4 cm in length. Mild amount of perihepatic ascites. IMPRESSION: 1. Unremarkable sonographic appearance of the hepatic vasculature. 2. Diffusely heterogeneous appearance of the liver redemonstrated with small volume of perihepatic ascites. The above report was generated using voice recognition software. It may contain grammatical, syntax or spelling errors. Electronically signed by: Raghu Thomas M.D. 09/30/2017 2:07 PM Dictated Date/Time: 09/30/2017 2:04 PM
[2017-09-30 15:05] VITALS: BP 115/73; PULSE 74; TEMP 36.9; O2SAT 93
[2017-09-30] MEDS: GABAPENTIN 600MG Q6H DOSE PO SCH ×2 (16:46→21:45)
--- NOTE | 2017-09-30 18:19 | DIAGNOSTIC IMAGING REPORT ---
ULTRASOUND-GUIDED DIAGNOSTIC PARACENTESIS: HISTORY: Ascites. Procedure: The procedure and its risks, benefits and alternatives were discussed with the patient and written informed consent was obtained. Preliminary ultrasound of the abdomen was performed to determine a safe needle entry site. There were only a few small pockets to safely access the ascites. The right lateral abdomen was prepped and draped in the usual sterile fashion. 1% Lidocaine was used for local anesthesia. A 22-gauge spinal needle was inserted into the peritoneal space using ultrasound guidance. A total of 23 cc of yellow ascites was aspirated. The needle was removed and a sterile dressing applied. The patient tolerated the procedure well and there were no immediate complications. IMPRESSION: Ultrasound-guided therapeutic paracentesis with aspiration of 23 cc of ascites. The specimen was sent to the laboratory for further evaluation Electronically signed by: Brody Currie M.D. 09/30/2017 6:18 PM Dictated Date/Time: 09/30/2017 6:16 PM
[2017-09-30 19:44] VITALS: BP 110/70; PULSE 74; TEMP 37.1; O2SAT 94
--- NOTE | 2017-09-30 21:16 | DIAGNOSTIC IMAGING REPORT ---
MRCP CLINICAL HISTORY: Elevated bilirubin. Cirrhosis. Evaluate for biliary calculus. COMPARISON STUDY: CT scan dated 09/29/2017 FINDINGS: There is moderate ascites. The liver serosal surface is slightly nodular suggesting underlying cirrhosis. There is mild splenomegaly. No gallstones are visualized. There is no ductal dilatation. No biliary ductal calculi are visualized. There is no pancreatic ductal dilatation. IMPRESSION: 1. Moderate ascites 2. Cirrhotic morphology of the liver 3. No ductal dilatation. No biliary ductal calculi are visualized Electronically signed by: Jabier Puentes M.D. 09/30/2017 9:15 PM Dictated Date/Time: 09/30/2017 9:12 PM
[2017-09-30] MEDS ORDERED: GADOXETATE DISODIUM (NON-WT BASED PROCEDURE) IV PRN (21:30)
[2017-09-30] MEDS: THIAMINE HCL INJ 200 MG in SODIUM CHLORIDE 0.9% 50ML 50 ML IV SCH (21:56)
--- NOTE | 2017-09-30 21:58 | DIAGNOSTIC IMAGING REPORT ---
MRI LIVER COMBO CLINICAL HISTORY: Elevated total bilirubin. Ascites. Possible cirrhosis. ABNORMAL CT SCAN TECHNIQUE: Imaging was performed prior to and following IV contrast injection. The patient was administered 10 cc of intravenous Eovist COMPARISON STUDY: CT scan dated 09/29/2017 FINDINGS: Imaging was performed before and after the administration of contrast. Axial and coronal imaging was performed. There is a moderate volume of ascites. There is no ductal dilatation. No renal masses are visualized. The spleen is borderline enlarged measuring 11.7 cm. There is a trace right pleural effusion and small left pleural effusion. The liver is diffusely inhomogeneous with multiple areas of steatosis. An element of acute hepatitis possibly alcoholic is suspected. Diffusion-weighted images reveal no suspicious hepatic masses. There is a nodular contour of the serosal surface of the liver, consistent with cirrhosis. No pancreatic masses are visualized. There is no pancreatic ductal dilatation. IMPRESSION: 1. Hepatic steatosis and hepatitis/cirrhosis 2. Borderline splenomegaly 3. Moderate ascites 4. Small left pleural effusion and trace right pleural effusion 5. No evidence of ductal dilatation. Electronically signed by: Jabier Puentes M.D. 09/30/2017 9:56 PM Dictated Date/Time: 09/30/2017 9:40 PM
[2017-09-30 23:13] VITALS: BP 114/76; PULSE 73; TEMP 37.2; O2SAT 94
[2017-10-01 01:11] LABS: PTT PATIENT 67.4 SECONDS (21.0-31.0)
[2017-10-01] MEDS: GABAPENTIN 600MG Q8H DOSE PO SCH ×3 (05:58→21:48)
[2017-10-01 06:10] LABS: BASO % 0.3 %; BASO ABS # 0.02 K/uL (0-0.2); EOS % 2.2 %; EOS ABS # 0.16 K/uL (0-0.5); HEMATOCRIT 37.9 % (42-52); HEMOGLOBIN 12.9 g/dL (14.0-18.0); IG# 0.01 K/uL (0.00-0.02); LYMPH % 23.5 %; LYMPH ABS # 1.68 K/uL (1.2-3.4); MEAN CELL VOLUME 107.7 fL (80-100); MEAN CORPUSCULAR HEMOGLOBIN 36.6 pg (25-34); MONO % 11.3 %; MONO ABS # 0.81 K/uL (0.11-0.59); NEUT % 62.6 %; NEUT ABS # 4.48 K/uL (1.4-6.5); PLATELET COUNT 129 K/uL (130-400); RED CELL DISTRIBUTION WIDTH SD 58.9 fL (36.4-46.3); WHITE BLOOD COUNT 7.16 K/uL (4.8-10.8)
[2017-10-01 06:42] LABS: ALBUMIN 1.5 gm/dl (3.4-5.0); CALCIUM 7.6 mg/dl (8.5-10.1); CREATININE 0.76 mg/dl (0.60-1.40); POTASSIUM 3.6 mmol/L (3.5-5.1)
[2017-10-01 06:51] LABS: TOTAL PROTEIN 6.1 gm/dl (6.4-8.2)
[2017-10-01] MEDS: HEPARIN 25,000 UNIT/500ML D5W 500 ML IV PRN ×5 (06:51→23:25)
[2017-10-01 06:59] VITALS: BP 104/69; PULSE 68; TEMP 37; O2SAT 92
--- NOTE | 2017-10-01 07:20 | Family Medicine Progress Note ---
Progress Note Date of Service Oct 01, 2017. Subjective Pt evaluation today including: conversation w/ patient, physical exam, chart review, lab review Patient seen and examined at bedside. No family in the room. Is wondering if he can go home for 1-2 days and come back for the EGD. Patient explained that he needs quickly reversible IV anticoagulation and DC on Lovenox would not be prudent in case there is a GI bleed. Pt lives in [place]. Patient ate well. No acute overnight events. He states that his left calf pain is improved. Plan of care described to the patient. Constitutional: No fever, No chills Respiratory: No cough, No sputum, No wheezing, No shortness of breath, No dyspnea on exertion Cardiovascular: No chest pain Abdomen: No pain, No nausea, No vomiting, No diarrhea Psychiatric: No depression symptoms Endo: No fatigue Objective Physical Exam General Appearance: WD/WN, no apparent distress Eyes: PERRL ENT: normal ENT inspection, hearing grossly normal, TMs normal, pharynx normal Respiratory/Chest: chest non-tender, lungs clear, normal breath sounds, no respiratory distress, no accessory muscle use Cardiovascular: regular rate, rhythm, no edema, no gallop, no JVD, no murmur Abdomen: normal bowel sounds, non tender, soft, no organomegaly, no pulsatile mass, + pertinent finding (large abdomen with ascites) Extremities: + pertinent finding (left calf tenderness, no major discoloration on the extremities bilaterally. 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 Pt reports 6 beers per day. Patient is currently on IV heparin for his DVT. Plan is for EGD on 10/04/2017 to rule out varices so that he can go home safely on AC. Liver MRI 1. Hepatic steatosis and hepatitis/cirrhosis 2. Borderline splenomegaly 3. Moderate ascites 4. Small left pleural effusion and trace right pleural effusion 5. No evidence of ductal dilatation. MRCP 1. Moderate ascites 2. Cirrhotic morphology of the liver 3. No ductal dilatation. No biliary ductal calculi are visualized. Liver US 1. Unremarkable sonographic appearance of the hepatic vasculature. 2. Diffusely heterogeneous appearance of the liver redemonstrated with small volume of perihepatic ascites. LFT elevation, potential early cirrhosis, Alcohol induced with possible Hemochromatosis. 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 - s.p Paracentesis. - 23cc drained, gram stain final no organisms, WBC count 61 , afebrile, bacterial culture pending. (Transudative) - c/w Hep Drip. - c/w Lasix 20mg and Aldactone 25mg daily. - Will empirically start Propranolol 10mg BID to reduce portal hypertension and possible esophageal varices. - Transferrin Saturation is 96% - this is suggestive of hemochromatosis, request GI input. Chronic alcohol use, 6 beers daily - Gabapentin ordered 600mg TID schedule, same with Ativan PO and IV PRN (has not needed any doses of Ativan) - c/w Multivitamin daily - c/w Thiamine 200mg BID IV Left leg DVT - Will continue heparin drip for now until liver disease course explored - Eventually will switch to Lovenox/Coumadin, though pt will need strong recommendations to NOT drink while on coumadin - Pt booked for EGD for Tuesday to evaluate for varices since he will be placed on anticoagulation for the DVT, for now he agrees to this. - Thrombophilia labs pending, DVT is likely related to Hepatic Cirrhosis. Dispo: Will remain in hospital over weekend likely, on med/surg VTE: Heparin drip Diet: 2g low salt diet. Dispo: Currently self pay w/o insurance. CVIM candidate. FULL CODE Resident Physician Supervision Note: I was present with PGY2 Dr. Ambrose Scales during the history and exam. I discussed the case with the resident and agree with the findings and plan as documented in the note. Any exceptions or clarifications are listed here: none. Pt w/o abd pain, nausea, emesis, confusion. No signs of etoh withdrawal per staff. VSS afebrile gen - nontoxic, NAD, no signs of etoh withdrawal mouth - MMM heart - RRR lungs - decreased BS bases; CTA b/l abd - soft, mildly distended w/ ascites, BS+, no splenomegaly, no caput ext - trace-1+ edema b/l t. bili improved trans sat 96% BMP stable CBC stable A/P: 1. acute hepatitis - likely etoh related - with probable underlying cirrhosis based on imaging studies 2. severe alcohol abuse 3. LLE DVT - unprovoked, with positive family history of VTE 4. coagulopathy likely 2nd to #1 5. hypokalemia - resolved 6. hyponatremia - resolved 7. abnormal LFTs 2nd to #1 - improving 8. elevated ferritin - could be simply from etoh abuse but with elevated trans sat this could suggest hemochromatosis 9. mild-mod ascites s/p diagnostic paracentesis; SAAG >1.1 c/w portal HTN; fluid transudative discriminant function is 16 - no indication for steroids at this time; repeat LFTs & PT/INR in am heparin drip for acute DVT of left leg no coumadin just yet - EGD planned for 10/04/17 low threshold for telemetry if pt shows signs of etoh withdrawal or has GI bleeding had lengthy discussion with patient about importance of etoh cessation in light of probable cirrhosis he agrees to stay in hospital until Tuesday for EGD Documented By: Marquise Nelson MD Resident Involvement: Resident Care Provided Care Provided: Adult [facility]
[2017-10-01] MEDS ORDERED: FUROSEMIDE 40 MG TAB PO SCH (09:00)
[2017-10-01] MEDS ORDERED: SPIRONOLACTONE 100 MG TAB PO SCH (09:00)
[2017-10-01] MEDS: MULTIVITAMIN TAB PO SCH (09:48)
[2017-10-01] MEDS: SPIRONOLACTONE 100 MG TAB PO SCH (09:49)
[2017-10-01] MEDS: METOPROLOL TARTRATE 25 MG TAB PO SCH ×3 (09:50→21:48)
[2017-10-01] MEDS: FUROSEMIDE 20 MG TAB PO SCH (09:50)
[2017-10-01] MEDS: THIAMINE HCL INJ 200 MG in SODIUM CHLORIDE 0.9% 50ML 50 ML IV SCH ×2 (09:59→21:52)
[2017-10-01 12:20] LABS: PTT PATIENT 59.5 SECONDS (21.0-31.0)
[2017-10-01] MEDS ORDERED: NURSING VERBAL MED ORDER ONE (14:00)
--- NOTE | 2017-10-01 14:13 | Progress Note ---
Progress Note Date of Service Oct 01, 2017. Progress Note No events, no complaints. Feels well except pain in leg. Looks well, comfortable Abd is soft and ND. labs reviewed Last 24 Hours Test 09/30/17 14:30 09/30/17 18:40 10/01/17 00:24 10/01/17 05:41 HIV (1&2) Ab and P24 Ag, 4th Gener NEG Peritoneal Fluid Color STRAW Peritoneal Fluid Appearance CLEAR Peritoneal Fluid WBC 61 /uL Peritoneal Fluid RBC < 3000 /uL Peritoneal Fld Mononuclear WBCs (%) 95.9 % Peritoneal Fld Polynuclear WBCs (%) 4.1 % Peritoneal Fluid Total Protein 0.5 g/dl Peritoneal Fluid Albumin < 0.6 g/dl Activated Partial Thromboplast Time 67.4 SECONDS 70.0 SECONDS Partial Thromboplastin Ratio 2.6 2.7 White Blood Count 7.16 K/uL Red Blood Count 3.52 M/uL Hemoglobin 12.9 g/dL Hematocrit 37.9 % Mean Corpuscular Volume 107.7 fL Mean Corpuscular Hemoglobin 36.6 pg Mean Corpuscular Hemoglobin Concent 34.0 g/dl Platelet Count 129 K/uL Mean Platelet Volume 10.0 fL Neutrophils (%) (Auto) 62.6 % Lymphocytes (%) (Auto) 23.5 % Monocytes (%) (Auto) 11.3 % Eosinophils (%) (Auto) 2.2 % Basophils (%) (Auto) 0.3 % Neutrophils # (Auto) 4.48 K/uL Lymphocytes # (Auto) 1.68 K/uL Monocytes # (Auto) 0.81 K/uL Eosinophils # (Auto) 0.16 K/uL Basophils # (Auto) 0.02 K/uL RDW Standard Deviation 58.9 fL RDW Coefficient of Variation 15.0 % Immature Granulocyte % (Auto) 0.1 % Immature Granulocyte # (Auto) 0.01 K/uL Sodium Level 137 mmol/L Potassium Level 3.6 mmol/L Chloride Level 106 mmol/L Carbon Dioxide Level 28 mmol/L Anion Gap 3.0 mmol/L Blood Urea Nitrogen 4 mg/dl Creatinine 0.76 mg/dl Est Creatinine Clear Calc Drug Dose 145.4 ml/min Estimated GFR () 140.9 Estimated GFR (Non- 121.6 BUN/Creatinine Ratio 5.7 Random Glucose 95 mg/dl Calcium Level 7.6 mg/dl Magnesium Level 1.9 mg/dl Iron Level 107 mcg/dl Total Iron Binding Capacity 133 mcg/dl Transferrin 80 mg/dl Transferrin % Saturation 96 % Total Bilirubin 2.9 mg/dl Aspartate Amino Transf (AST/SGOT) 77 U/L Alanine Aminotransferase (ALT/SGPT) 29 U/L Alkaline Phosphatase 127 U/L Total Protein 6.1 gm/dl Albumin 1.5 gm/dl Globulin 4.6 gm/dl Albumin/Globulin Ratio 0.3 Test 10/01/17 11:55 Activated Partial Thromboplast Time 59.5 SECONDS Partial Thromboplastin Ratio 2.3 A/P Ascites, likely alcohol related liver disease - COnt low dose diuretics - EGD Tuesday as inpt on anticoagulation to look for varices - No need steroids given DF
[2017-10-01 15:35] VITALS: BP 111/73; PULSE 64; TEMP 36.8; O2SAT 94
[2017-10-01 21:47] VITALS: BP 106/68; PULSE 74
[2017-10-01] MEDS: PROPRANOLOL HCL 10 MG TAB PO SCH (21:48)
[2017-10-01 23:05] VITALS: BP 101/66; PULSE 74; TEMP 36.7; O2SAT 96
[2017-10-02] MEDS: HEPARIN 25,000 UNIT/500ML D5W 500 ML IV PRN ×4 (07:11→22:56)
[2017-10-02 07:19] LABS: HEMATOCRIT 38.8 % (42-52); MEAN CELL VOLUME 107.8 fL (80-100); MEAN CORPUSCULAR HEMOGLOBIN 36.1 pg (25-34); MEAN CORPUSCULAR HGB CONC 33.5 g/dl (32-36); MEAN PLATELET VOLUME 9.9 fL (7.4-10.4); PLATELET COUNT 149 K/uL (130-400); RED CELL DISTRIBUTION WIDTH CV 14.8 % (11.5-14.5); WHITE BLOOD COUNT 7.15 K/uL (4.8-10.8)
[2017-10-02 07:25] VITALS: BP 94/62; PULSE 65; TEMP 36.8; O2SAT 91
[2017-10-02 07:34] LABS: INR 1.5 (0.9-1.1)
[2017-10-02 07:36] LABS: PTT PATIENT 60.8 SECONDS (21.0-31.0)
[2017-10-02 07:51] LABS: ALBUMIN 1.7 gm/dl (3.4-5.0); CALCIUM 7.9 mg/dl (8.5-10.1); CREATININE 0.74 mg/dl (0.60-1.40)
[2017-10-02 07:54] LABS: TOTAL PROTEIN 6.5 gm/dl (6.4-8.2)
[2017-10-02] MEDS: METOPROLOL TARTRATE 25 MG TAB PO SCH ×3 (09:10→21:14)
[2017-10-02] MEDS: MULTIVITAMIN TAB PO SCH (09:11)
[2017-10-02] MEDS: FUROSEMIDE 20 MG TAB PO SCH (09:12)
[2017-10-02] MEDS: SPIRONOLACTONE 100 MG TAB PO SCH (09:12)
[2017-10-02] MEDS: PROPRANOLOL HCL 10 MG TAB PO SCH ×2 (09:12→21:14)
[2017-10-02] MEDS: GABAPENTIN 600MG Q12H DOSE PO SCH ×2 (09:44→21:13)
[2017-10-02] MEDS: THIAMINE HCL INJ 200 MG in SODIUM CHLORIDE 0.9% 50ML 50 ML IV SCH ×2 (09:44→21:13)
--- NOTE | 2017-10-02 10:57 | Family Medicine Progress Note ---
Progress Note Date of Service Oct 02, 2017. Subjective Pt evaluation today including: conversation w/ patient, physical exam, chart review, lab review The patient was seen and examined at bedside. No acute overnight events. Patient is resting comfortably in bed. Denies having any pain. Eating and urinating well. Plan of care was described to the patient and all questions were answered. Constitutional: No fever, No chills, No sweats Respiratory: No cough, No sputum, No wheezing, No shortness of breath Abdomen: No pain, No nausea, No vomiting, No diarrhea, No constipation Musculoskeletal: No joint pain Skin: No rash Objective Physical Exam Notes: General Appearance: WD/WN, no apparent distress Eyes: PERRL ENT: normal ENT inspection, hearing grossly normal, TMs normal, pharynx normal Respiratory/Chest: chest non-tender, lungs clear, normal breath sounds, no respiratory distress, no accessory muscle use Cardiovascular: regular rate, rhythm, no edema, no gallop, no JVD, no murmur Abdomen: normal bowel sounds, non tender, soft, no organomegaly, no pulsatile mass, + pertinent finding (large abdomen with ascites) Extremities: + pertinent finding (left calf tenderness has improved almost to the point of resolution, right calf non tender, no major discoloration on the extremities bilaterally. 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 Pt reports drinking 6 beers per day. Patient is currently on IV heparin for his DVT. Cannot transition to outpatient AC until esophageal varices are ruled out due to bleeding risk. Peritoneal fluid has been deemed to be transudative increasing our suspicious for esophageal varices. Transferrin Saturation is 96% raising suspicious of the additional possibility of hemochromatosis. Plan is for EGD on 10/04/2017. Alcohol cessation was strongly emphasized during his hospital stay here. Liver MRI 1. Hepatic steatosis and hepatitis/cirrhosis 2. Borderline splenomegaly 3. Moderate ascites 4. Small left pleural effusion and trace right pleural effusion 5. No evidence of ductal dilatation. MRCP 1. Moderate ascites 2. Cirrhotic morphology of the liver 3. No ductal dilatation. No biliary ductal calculi are visualized. Liver US 1. Unremarkable sonographic appearance of the hepatic vasculature. 2. Diffusely heterogeneous appearance of the liver redemonstrated with small volume of perihepatic ascites. LFT elevation, potential early cirrhosis, Alcohol induced with possible Hemochromatosis. s.p Paracentesis. - 23cc drained, gram stain final no organisms, WBC count 61, afebrile, SAAG >1.1 (transudate), NO growth to date. Discriminant Function is 18.7 today (PT, PT reference and Bilirubin), Steroids typically are indicated when DF > 32. GI recs, MELD = 17, Colonoscopy as outpatient (currently denies any symptoms to r/o IBD), CT finding are nonspecific and likely related to lipodystrophy. c/w Hep Drip. c/w Lasix 20mg and Aldactone 25mg daily. c/w Propranolol 10mg BID to reduce portal HTN and possible esophageal varices. Transferrin Saturation is 96% - this is suggestive of hemochromatosis, GI eval as outpatient? Chronic alcohol use, 6 beers daily Gabapentin ordered 600mg TID schedule, same with Ativan PO and IV PRN (has not needed any doses of Ativan) c/w Multivitamin daily c/w Thiamine 200mg BID IV Hypotension (new onset) Likely 2/2 to Lasix ,Aldactone and Propranolol. Left leg DVT Will continue heparin drip for now until liver disease course explored Likely provoked by acute alcoholic hepatitis / cirrhosis. Thrombophilia labs pending. Dispo: Med Surg until at least Tue when he gets the EGD. VTE: Heparin drip Diet: 2g low salt diet. Dispo: Currently self pay, candidate for Medicaid. FULL CODE Resident Physician Supervision Note: I was present with PGY2 Dr. Ambrose Scales during the history and exam. I discussed the case with the resident and agree with the findings and plan as documented in the note. Any exceptions or clarifications are listed here: none. Pt feels well eating fine no nausea, emesis, abd pain left leg pain is improved VSS afebrile gen - NAD mouth - MMM heart - RRR lungs - decreased BS bases but CTA b/l abd - soft, mildly distended w/ ascites, BS+ ext - trace edema on left; pulses 2+ b/l t. bili 3.1 INR 1.5 CBC acceptable A/P: 1. acute hepatitis - likely etoh related - with probable underlying cirrhosis based on imaging studies; hepatitis stable 2. severe alcohol abuse - no evidence of etoh withdrawal at this time but continue gabapentin protocol 3. LLE DVT - unprovoked, with positive family history of VTE 4. coagulopathy likely 2nd to #1 5. hypokalemia - resolved 6. hyponatremia - resolved 7. abnormal LFTs 2nd to #1 - stable, no worsening 8. elevated ferritin - could be simply from etoh abuse but with elevated trans sat this could suggest hemochromatosis 9. mild-mod ascites s/p diagnostic paracentesis; SAAG >1.1 c/w portal HTN; fluid transudative discriminant function still 17 - no indication for steroids at this time heparin drip for acute DVT of left leg no coumadin just yet - EGD planned for 10/04/17 low threshold for telemetry if pt shows signs of etoh withdrawal or has GI bleeding Documented By: Marquise Nelson MD Resident Involvement: Resident Care Provided Care Provided: Adult Hospital Medicine
[2017-10-02 14:02] VITALS: BP 100/63; PULSE 62
[2017-10-02 15:20] VITALS: BP 101/64; PULSE 86; TEMP 37.2; O2SAT 93
[2017-10-02 21:10] VITALS: BP 105/66; PULSE 76
[2017-10-02 23:13] VITALS: BP 105/66; PULSE 66; TEMP 37.1; O2SAT 95
[2017-10-03] MEDS: HEPARIN 25,000 UNIT/500ML D5W 500 ML IV PRN ×4 (07:03→14:57)
[2017-10-03 07:07] VITALS: BP 102/66; PULSE 73; TEMP 36.7; O2SAT 94
[2017-10-03 08:02] LABS: HEMATOCRIT 41.5 % (42-52); HEMOGLOBIN 13.8 g/dL (14.0-18.0); MEAN CELL VOLUME 108.6 fL (80-100); MEAN CORPUSCULAR HEMOGLOBIN 36.1 pg (25-34); MEAN CORPUSCULAR HGB CONC 33.3 g/dl (32-36); MEAN PLATELET VOLUME 10.2 fL (7.4-10.4); PLATELET COUNT 149 K/uL (130-400); RED CELL DISTRIBUTION WIDTH CV 14.7 % (11.5-14.5); RED CELL DISTRIBUTION WIDTH SD 58.3 fL (36.4-46.3); WHITE BLOOD COUNT 6.76 K/uL (4.8-10.8)
[2017-10-03 08:20] LABS: INR 1.4 (0.9-1.1)
[2017-10-03] MEDS: THIAMINE HCL INJ 200 MG in SODIUM CHLORIDE 0.9% 50ML 50 ML IV SCH ×2 (08:21→21:20)
[2017-10-03] MEDS: SPIRONOLACTONE 100 MG TAB PO SCH (08:22)
[2017-10-03] MEDS: PROPRANOLOL HCL 10 MG TAB PO SCH ×2 (08:23→21:19)
[2017-10-03] MEDS: FUROSEMIDE 20 MG TAB PO SCH (08:24)
[2017-10-03] MEDS: MULTIVITAMIN TAB PO SCH (08:25)
[2017-10-03] MEDS: METOPROLOL TARTRATE 25 MG TAB PO SCH ×3 (08:25→21:19)
[2017-10-03 08:38] LABS: PTT PATIENT 71.4 SECONDS (21.0-31.0)
[2017-10-03 08:40] LABS: ALBUMIN 1.7 gm/dl (3.4-5.0); CALCIUM 7.7 mg/dl (8.5-10.1); CREATININE 0.8 mg/dl (0.60-1.40); POTASSIUM 3.2 mmol/L (3.5-5.1); TOTAL PROTEIN 6.8 gm/dl (6.4-8.2)
--- NOTE | 2017-10-03 13:24 | Family Medicine Progress Note ---
Progress Note Date of Service Oct 03, 2017. Subjective Pt evaluation today including: conversation w/ patient, conversation w/ family Pain: denies PO Intake: adequate Voiding: no voiding problems no acute events overnight. no reported withdrawal symptoms. denies recurrence ascites Constitutional: No fever, No chills, No weakness Respiratory: No cough, No shortness of breath Cardiovascular: No chest pain, No edema, No palpitations Abdomen: No pain, No nausea, No vomiting, No diarrhea, No constipation Male : No dysuria, No urinary frequency Heme: No abnormal bleeding/bruising, No clotting problems Skin: No rash, No itch Medications Current Inpatient Medications Medications (Trade) Dose Ordered Sig/Paras Route Start Time Stop Time Status Last Admin Dose Admin Ioversol (Optiray 320) 111 ml UD PRN IV 09/29/17 18:45 10/03/17 18:44 Ioversol (Optiray 320) 111 ml UD PRN IV 09/29/17 19:45 10/03/17 19:44 Al Hydrox/Mg Hydrox/Simethicone (Maalox Max Susp) 15 ml Q4H PRN PO 09/29/17 21:45 10/29/17 21:44 Magnesium Hydroxide (Milk Of Magnesia Susp) 30 ml Q6H PRN PO 09/29/17 21:45 10/29/17 21:44 Polyethylene (Miralax Powder Packet) 17 gm DAILY PRN PO 09/29/17 21:45 10/29/17 21:44 Ondansetron HCl (Zofran Inj) 4 mg Q6H PRN IV 09/29/17 21:45 10/29/17 21:44 Heparin Sodium/ Dextrose 500 ml @ 20 mls/hr Q24H PRN IV 09/29/17 22:30 10/29/17 22:29 10/03/17 13:30 20 MLS/HR Lorazepam (Ativan Inj) 1 mg ONE PRN IV 09/29/17 22:45 Metoprolol Tartrate (Lopressor Tab) 12.5 mg TID PO 09/30/17 09:00 10/30/17 08:59 10/03/17 13:26 12.5 MG Thiamine HCl 200 mg/Sodium Chloride 52 ml @ 208 mls/hr BID IV 09/30/17 21:00 10/30/17 20:59 10/03/17 08:21 208 MLS/HR Lorazepam (Ativan Tab) PRN Dosing -Active Protocol UD PRN PO 09/30/17 10:30 10/30/17 10:29 Multivitamins (Multivitamin Tab) 1 tab QAM PO 10/01/17 09:00 10/31/17 08:59 10/03/17 08:25 1 TAB Gabapentin (Neurontin Tab) 600 mg Q24H PO 10/03/17 22:00 10/03/17 22:01 Lorazepam 1 mg/ Syringe 1 ml @ 1 mls/min Q1H PRN IV 09/30/17 13:30 10/30/17 13:29 Furosemide (Lasix Tab) 20 mg QAM PO 10/01/17 09:00 10/31/17 08:59 10/03/17 08:24 20 MG Spironolactone (Aldactone Tab) 50 mg QAM PO 10/01/17 09:00 10/31/17 08:59 10/03/17 08:22 50 MG Folic Acid (Folvite Tab) 1 mg QAM PO 10/01/17 09:00 10/31/17 08:59 10/03/17 08:23 1 MG Gadoxetate Disodium (Eovist (Non-Wt Based Procedure)) 10 ml UD PRN IV 09/30/17 21:30 10/04/17 21:29 Propranolol HCl (Inderal Tab) 10 mg BID PO 10/01/17 21:00 10/31/17 20:59 10/03/17 08:23 10 MG Objective Vital Signs Date Time Temp Pulse Resp B/P (MAP) Pulse Ox O2 Delivery O2 Flow Rate FiO2 10/03/17 08:03 Room Air 10/03/17 07:07 36.7 73 18 102/66 (78) 94 Room Air 10/03/17 00:00 Room Air 10/02/17 23:13 37.1 66 16 105/66 (79) 95 Room Air 10/02/17 21:10 76 105/66 (79) 10/02/17 15:20 37.2 86 18 101/64 (76) 93 Room Air 10/02/17 15:00 Room Air 10/02/17 14:02 62 100/63 (75) Physical Exam Notes: GENERAL: alert, well appearing, well nourished, no distress, non-toxic EYE EXAM: normal conjunctiva, PERRL and EOM's grossly intact, no scleral icterus NECK: supple, no adenopathy LUNGS: Clear to auscultation. Normal chest wall mechanics HEART: no murmurs, S1 normal and S2 normal ABDOMEN: abdomen soft, non-tender, no fluid wave normo-active bowel sounds, no masses, no rebound or guarding. SKIN: no rashes and no bruising , no jaundice LOWER EXTREMITIES: No pitting edema NEURO EXAM: Normal sensorium, cranial nerves II-XII grossly intact, normal speech, no gross weakness of arms, no gross weakness of legs. No Asterixis Laboratory Results Results Past 24 Hours Test 10/03/17 07:47 Range/Units White Blood Count 6.76 4.8-10.8 K/uL Red Blood Count 3.82 4.7-6.1 M/uL Hemoglobin 13.8 14.0-18.0 g/dL Hematocrit 41.5 42-52 % Mean Corpuscular Volume 108.6 80-100 fL Mean Corpuscular Hemoglobin 36.1 25-34 pg Mean Corpuscular Hemoglobin Concent 33.3 32-36 g/dl RDW Standard Deviation 58.3 36.4-46.3 fL RDW Coefficient of Variation 14.7 11.5-14.5 % Platelet Count 149 130-400 K/uL Mean Platelet Volume 10.2 7.4-10.4 fL Prothrombin Time 14.5 9.0-12.0 SECONDS Prothromb Time International Ratio 1.4 0.9-1.1 Activated Partial Thromboplast Time 71.4 21.0-31.0 SECONDS Partial Thromboplastin Ratio 2.7 Sodium Level 138 136-145 mmol/L Potassium Level 3.2 3.5-5.1 mmol/L Chloride Level 103 98-107 mmol/L Carbon Dioxide Level 27 21-32 mmol/L Anion Gap 8.0 3-11 mmol/L Blood Urea Nitrogen 4 7-18 mg/dl Creatinine 0.80 0.60-1.40 mg/dl Est Creatinine Clear Calc Drug Dose 138.1 ml/min Estimated GFR () 138.0 Estimated GFR (Non- 119.0 BUN/Creatinine Ratio 5.1 10-20 Random Glucose 113 70-99 mg/dl Calcium Level 7.7 8.5-10.1 mg/dl Magnesium Level 2.1 1.8-2.4 mg/dl Total Bilirubin 2.7 0.2-1 mg/dl Aspartate Amino Transf (AST/SGOT) 87 15-37 U/L Alanine Aminotransferase (ALT/SGPT) 33 12-78 U/L Alkaline Phosphatase 119 45-117 U/L Total Protein 6.8 6.4-8.2 gm/dl Albumin 1.7 3.4-5.0 gm/dl Globulin 5.1 2.5-4.0 gm/dl Albumin/Globulin Ratio 0.3 0.9-2 Assessment and Plan 31 yo M w/ h/o alcohol abuse, alcoholic hepatitis presenting with Ascites likely secondary to cirrhosis, Elevated LFT's, LLE DVT placed on Heparin, found to have significantly high Ferritin level ( 753) of know known origin. Acute Hepatitis, suspected Cirrhosis, Ascites * likely secondary to alcohol abuse * Ascites: s/p Paracentesis , No evidence of SBP, Peritoneal Cx NGTD * Cirrhosis likely based on Ultra sound * MELD 14, Discriminant Function 14.2 (good prognosis) * Portal Hypertension: SAAG >1.1, Continue propranolol 10 mg BID for * EGD scheduled 10/04 for R/O Esophageal varices * If negative EGD, patient can be discharged with anticoagulation * Continue Lasix, Aldactone Alcohol Abuse * no reported withdrawal symptoms * Continue Gabapentin protocol * Continue Multivitamin, Thiamine supplementation LLE DVT * currently asymptomatic * Continue anticoagulation with Heparin drip * F/u Thrombophilia workup Hypotension * improved * Continue to monitor Hypokalemia * K 3.2 * Give 40 meq K PO Abnormal LFTS * AST, ALT slightly more elevated * Continue to Monitor Elevated Ferritin * Ferritin of 753 * possible hemochromatosis, Consider genetic workup if GI wants to pursue DVT prophylaxis * Heparin drip as above Disposition: * home pending EGD with GI f/u Full code Resident Physician Supervision Note: I was present with PGY2 Dr. Dwight Schneider during the history and exam. I discussed the case with the resident and agree with the findings and plan as documented in the note. Any exceptions or clarifications are listed here: none. Pt feels well; denies abd pain, nausea, BRB[facility] states "after that test tomorrow I'm leaving - I'll take my IV out on my own" VSS afebrile gen - NAD, a/o x 3 neck - no JVD heart - RRR, s1, s2 lungs - decreased BS bases but CTA b/l otherwise abd - soft, mildly distended w/ ascites, BS+ ext - trace edema on left; pulses 2+ b/l t. bili 2.7 INR 1.4 CBC acceptable A/P: 1. acute hepatitis - likely etoh related - with probable underlying cirrhosis based on imaging studies; hepatitis stable and LFTs modestly improving day to day 2. severe alcohol abuse - no evidence of etoh withdrawal at this time but continue gabapentin protocol; he has not expressed interest in quitting during this stay 3. LLE DVT - unprovoked, with positive family history of VTE 4. coagulopathy likely 2nd to #1 5. hypokalemia - resolved 6. hyponatremia - resolved 7. abnormal LFTs 2nd to #1 - stable, no worsening 8. elevated ferritin - could be simply from etoh abuse but with elevated trans sat this could suggest hemochromatosis 9. mild-mod ascites s/p diagnostic paracentesis; SAAG >1.1 c/w portal HTN; fluid transudative discriminant function still well below 32 - no indication for steroids at this time heparin drip for acute DVT of left leg no coumadin just yet - EGD planned for 10/04/17 AM by Vincent HUNT if EGD is negative the best course of action is lovenox 1mg/kg BID bridged with coumadin HOWEVER, patient does NOT have insurance and lovenox will be too expensive I am uncertain the best course of action for him I am concerned that tomorrow following his EGD he will leave AMA even despite a good plan for anticoagulation he is a poor candidate for a novel agent based on cost & other factors Documented By: Marquise Nelson MD Continued [facility] stay due to: other (requires EGD prior to discharge) Discharge planning: home Resident Tracking Resident Involvement: Resident Care Provided Care Provided: Adult Hospital Medicine
[2017-10-03 13:26] VITALS: BP 115/63; PULSE 73
--- NOTE | 2017-10-03 14:36 | Progress Note ---
Progress Note Date of Service Oct 03, 2017. Progress Note Feels well. Exam unchanged. Labs show stable LFT's, creat. Plan EGD tomorrow.
[2017-10-03 15:34] VITALS: BP 114/73; PULSE 61; TEMP 37.3; O2SAT 93
[2017-10-03] MEDS ORDERED: POTASSIUM CHLORIDE 20 MEQ TABCR PO STA (15:37)
[2017-10-03 15:45] LABS: INR 1.4 (0.9-1.1)
[2017-10-03 17:46] LABS: PTT PATIENT 48.3 SECONDS (21.0-31.0)
[2017-10-03 21:16] VITALS: BP 106/70; PULSE 60
[2017-10-03] MEDS ORDERED: GABAPENTIN 600MG X1 DOSE PO SCH (22:00)
[2017-10-03 23:05] VITALS: BP 105/68; PULSE 60; TEMP 37.2; O2SAT 95
[2017-10-04] MEDS: HEPARIN 25,000 UNIT/500ML D5W 500 ML IV PRN ×3 (06:51→12:03)
[2017-10-04 07:00] VITALS: BP 103/64; PULSE 59; TEMP 37; O2SAT 94
[2017-10-04 07:58] LABS: HEMATOCRIT 39.5 % (42-52); HEMOGLOBIN 13.3 g/dL (14.0-18.0); MEAN CELL VOLUME 108.2 fL (80-100); MEAN CORPUSCULAR HEMOGLOBIN 36.4 pg (25-34); MEAN CORPUSCULAR HGB CONC 33.7 g/dl (32-36); MEAN PLATELET VOLUME 9.9 fL (7.4-10.4); PLATELET COUNT 154 K/uL (130-400); RED CELL DISTRIBUTION WIDTH CV 14.9 % (11.5-14.5); RED CELL DISTRIBUTION WIDTH SD 58.8 fL (36.4-46.3); WHITE BLOOD COUNT 9.28 K/uL (4.8-10.8)
[2017-10-04 08:07] LABS: INR 1.3 (0.9-1.1); PTT PATIENT 43.5 SECONDS (21.0-31.0)
[2017-10-04 08:27] LABS: ALBUMIN 1.8 gm/dl (3.4-5.0); CREATININE 0.76 mg/dl (0.60-1.40)
[2017-10-04 08:29] LABS: TOTAL PROTEIN 6.9 gm/dl (6.4-8.2)
[2017-10-04] MEDS ORDERED: HEPARIN IV BOLUS 3,000 UNIT in SYRINGE 0 ML IV ONE (08:30)
[2017-10-04] MEDS: METOPROLOL TARTRATE 25 MG TAB PO SCH ×2 (08:44→13:44)
[2017-10-04] MEDS ORDERED: NURSING VERBAL MED ORDER ONE ×3 (08:45→13:45)
[2017-10-04] MEDS: FUROSEMIDE 20 MG TAB PO SCH (08:45)
[2017-10-04] MEDS: SPIRONOLACTONE 100 MG TAB PO SCH (08:45)
[2017-10-04] MEDS: PROPRANOLOL HCL 10 MG TAB PO SCH (08:46)
[2017-10-04] MEDS: MULTIVITAMIN TAB PO SCH (08:46)
[2017-10-04] MEDS: THIAMINE HCL INJ 200 MG in SODIUM CHLORIDE 0.9% 50ML 50 ML IV SCH (08:49)
--- NOTE | 2017-10-04 09:10 | Family Medicine Progress Note ---
Progress Note Date of Service Oct 04, 2017. Medications Current Inpatient Medications Medications (Trade) Dose Ordered Sig/Paras Route Start Time Stop Time Status Last Admin Dose Admin Al Hydrox/Mg Hydrox/Simethicone (Maalox Max Susp) 15 ml Q4H PRN PO 09/29/17 21:45 10/29/17 21:44 Magnesium Hydroxide (Milk Of Magnesia Susp) 30 ml Q6H PRN PO 09/29/17 21:45 10/29/17 21:44 Polyethylene (Miralax Powder Packet) 17 gm DAILY PRN PO 09/29/17 21:45 10/29/17 21:44 Ondansetron HCl (Zofran Inj) 4 mg Q6H PRN IV 09/29/17 21:45 10/29/17 21:44 Heparin Sodium/ Dextrose 500 ml @ 23 mls/hr [id number] PRN IV 09/29/17 22:30 10/29/17 22:29 Future Hold 10/04/17 08:19 23 MLS/HR Lorazepam (Ativan Inj) 1 mg ONE PRN IV 09/29/17 22:45 Metoprolol Tartrate (Lopressor Tab) 12.5 mg TID PO 09/30/17 09:00 10/30/17 08:59 10/03/17 21:19 12.5 MG Thiamine HCl 200 mg/Sodium Chloride 52 ml @ 208 mls/hr BID IV 09/30/17 21:00 10/30/17 20:59 10/04/17 08:49 208 MLS/HR Lorazepam (Ativan Tab) PRN Dosing -Active Protocol UD PRN PO 09/30/17 10:30 10/30/17 10:29 Multivitamins (Multivitamin Tab) 1 tab QAM PO 10/01/17 09:00 10/31/17 08:59 10/04/17 08:46 1 TAB Lorazepam 1 mg/ Syringe 1 ml @ 1 mls/min Q1H PRN IV 09/30/17 13:30 10/30/17 13:29 Furosemide (Lasix Tab) 20 mg QAM PO 10/01/17 09:00 10/31/17 08:59 10/04/17 08:45 20 MG Spironolactone (Aldactone Tab) 50 mg QAM PO 10/01/17 09:00 10/31/17 08:59 10/04/17 08:45 50 MG Folic Acid (Folvite Tab) 1 mg QAM PO 10/01/17 09:00 10/31/17 08:59 10/04/17 08:46 1 MG Gadoxetate Disodium (Eovist (Non-Wt Based Procedure)) 10 ml UD PRN IV 09/30/17 21:30 10/04/17 21:29 Propranolol HCl (Inderal Tab) 10 mg BID PO 10/01/17 21:00 10/31/17 20:59 10/04/17 08:46 10 MG Miscellaneous Information (Pending Order) 1 ea Q2H N/A 10/04/17 10:00 11/03/17 09:59 Objective Vital Signs Date Time Temp Pulse Resp B/P (MAP) Pulse Ox O2 Delivery O2 Flow Rate FiO2 10/04/17 08:00 Room Air 10/04/17 07:00 37.0 59 19 103/64 (77) 94 Room Air 10/04/17 00:20 Room Air 10/03/17 23:05 37.2 60 16 105/68 (80) 95 Room Air 10/03/17 21:16 60 106/70 (82) 10/03/17 15:34 37.3 61 18 114/73 (87) 93 Room Air 10/03/17 15:05 Room Air 10/03/17 13:26 73 115/63 (80) Resident Tracking Resident Involvement: Resident Care Provided Care Provided: Adult Hospital Medicine
--- NOTE | 2017-10-04 10:24 | History & Physical Bridge Note ---
H&P Re-Evaluation Bridge Note: I have examined the patient, reviewed the History & Physical and in the interval since the performance of the History & Physical I have noted the following changes of clinical significance: No changes noted
[2017-10-04] MEDS ORDERED: MIDAZOLAM HCL 1 MG/ML 2ML VIAL ONE (10:26)
[2017-10-04] MEDS ORDERED: FENTANYL CITRATE INJ 50 MCG/1 ML 2 ML VIAL ONE (10:26)
--- NOTE | 2017-10-04 10:47 | GI REPORT ---
Procedure Date: 10/04/2017 10:12 AM Procedure: Upper GI endoscopy Indications: Cirrhosis with suspected esophageal varices Medicines: Monitored Anesthesia Care Complications: No immediate complications. Estimated blood loss: None. Estimated Blood Loss: Estimated blood loss: none. Procedure: Pre-Anesthesia Assessment: - Prior to the procedure, a History and Physical was performed, and patient medications, allergies and sensitivities were reviewed. The patient's tolerance of previous anesthesia was reviewed. - ASA Grade Assessment: III - A patient with severe systemic disease. After obtaining informed consent, the endoscope was passed under direct vision. Throughout the procedure, the patient's blood pressure, pulse, and oxygen saturations were monitored continuously. The scope was introduced through the mouth, and advanced to the third part of duodenum. The upper GI endoscopy was accomplished with ease. The patient tolerated the procedure well. Findings: Grade II, large (> 5 mm) varices were found in the lower third of the esophagus. The Z-line was regular and was found 40 cm from the incisors. Mild portal hypertensive gastropathy was found in the entire examined stomach. The examined duodenum was normal. Impression: - Grade II and large (> 5 mm) esophageal varices. - Z-line regular, 40 cm from the incisors. - Portal hypertensive gastropathy. - Normal examined duodenum. - No specimens collected. Recommendation: - Return patient to [facility] care. - Give a beta michael (nadolol 40 mg daily) with dosage titrated by the heart rate. Vinay Conner M.D. Vinay Conner MD 10/04/2017 10:47:18 AM This report has been signed electronically. Note Initiated On: 10/04/2017 10:12 AM I attest to the content of the Intraoperative Record and orders documented therein, exceptions below
[2017-10-04] MEDS ORDERED: PROPOFOL IV EMULSION 10 MG/ML 20 ML VIAL IV ONE (10:48)
[2017-10-04] MEDS ORDERED: LIDOCAINE HCL 2% 2 ML VIAL (20MG/ML) ONE (10:48)
--- NOTE | 2017-10-04 11:00 | Anesthesiology Progress Note ---
Anesthesia Post Op Note Date & Time Oct 04, 2017 at 10:59 Vital Signs Pain Intensity: 0 Vital Signs Past 12 Hours Date Time Temp Pulse Resp B/P (MAP) Pulse Ox O2 Delivery O2 Flow Rate FiO2 10/04/17 10:46 60 16 100/62 (75) 97 Room Air 10/04/17 09:48 36.8 64 18 105/66 (79) 95 Room Air 10/04/17 08:00 Room Air 10/04/17 07:00 37.0 59 19 103/64 (77) 94 Room Air 10/04/17 00:20 Room Air 10/03/17 23:05 37.2 60 16 105/68 (80) 95 Room Air Notes Mental Status: alert / awake / arousable, participated in evaluation Pt Amnestic to Procedure: Yes Nausea / Vomiting: adequately controlled Pain: adequately controlled Airway Patency, RR, SpO2: stable & adequate BP & HR: stable & adequate Hydration State: stable & adequate Anesthetic Complications: no major complications apparent
[2017-10-04 11:44] VITALS: BP 102/60; PULSE 70; TEMP 37; O2SAT 98
[2017-10-04] MEDS ORDERED: WARFARIN SOD 10 MG TAB PO ONE (12:00)
[2017-10-04 12:10] VITALS: BP 95/58; PULSE 70; TEMP 37; O2SAT 93
[2017-10-04 12:22] LABS: PTT PATIENT 28.8 SECONDS (21.0-31.0)
[2017-10-04 12:40] VITALS: BP 91/51; PULSE 73; O2SAT 95
[2017-10-04] MEDS ORDERED: MULT-890 PO (13:19)
[2017-10-04] MEDS ORDERED: CMD5 PO (13:19)
[2017-10-04] MEDS ORDERED: FLV1 PO (13:19)
[2017-10-04] MEDS ORDERED: ENOX80IN SQ (13:19)
[2017-10-04] MEDS ORDERED: SPRN100 PO (13:19)
[2017-10-04] MEDS ORDERED: PROP10TA7 PO (13:19)
[2017-10-04] MEDS ORDERED: LSX20 PO (13:19)
[2017-10-04] MEDS ORDERED: THIA1TAB PO (13:19)
--- NOTE | 2017-10-04 13:40 | Discharge Instructions ---
Discharge Instructions Date of Service Oct 04, 2017. Admission Reason for Admission: Dvt, Elevated Bilirubin VTE Date & Time Date of VTE Diagnosis: Sep 29, 2017 Time of VTE Diagnosis: 17:02 Discharge Goals Goal(s): Diagnostic testing, Therapeutic intervention Activity Recommendations Activity Limitations: resume your previous activity . Instructions / Follow-Up Instructions / Follow-Up DVT (blood clot) -the clot is just big enough that it definitely requires blood thinner treatment , but fortunately is small enough that it will likely only require treatment for about three months -clots, when left untreated, can grow and then fragments can break off. when that happens they most commonly can float downstream and lodge in lungs, causing shortness of breath and pain. we treat with blood thinners to allow your body to remodel the clot (there are "clot busting medicines" but they cause so much bleeding that it's actually rare and exceptional circumstances where the benefits of using those outweigh the risks - for almost all situations , we use blood thinners to keep the clot from growing and then your body takes care of the rest) -there are multiple ways to treat clots. for you the most cost effective is going to be to use warfarin as the "main" blood thinner. warfarin acts by blocking how your liver takes vitamin K and turns it into clotting proteins. this means that it doesn't work immediately, since your liver does have some of those clotting proteins in "savings" -- it will likely take about 3 days for your blood to get thin enough on the warfarin. in the meantime, we'll have you use a blood thinner called enoxaparin, that works very similarly to the heparin drip we've had you on in the hospital - it will keep your blood thin until the warfarin gets up to speed. it's an [id number] injection under the skin - try to do it as close to 12 hours apart as possible. we'll send you home with syringes, but i also sent a prescription to the pharmacy in case your blood takes longer than expected to get thin on the warfarin. don't forklift picker the enoxaparin unless it's clear you're going to need it for longer (ie don't forklift picker the enoxaparin until after your appointment and labwork on - if they say you'll need to continue the enoxaparin then, we'll have the Rx at the pharmacy waiting for you) -in the office on , they'll check "warfarin levels" (the clotting pathway it effects is called the PT/INR - we'll be looking for an INR between 2 and 3 to know it's safe to stop the enoxaparin and just continue on the warfarin alone -with your pre-existing liver disease, it's likely that you won't need a very big dose of warfarin to keep your blood thin. we'll be sending you out on 5mg for now, which is typically a medium dose. normally young healthy men need more in the range of 7.5-10mg -- as they follow your numbers if it appears you aren't getting thin fast enough they can raise the dose. -because warfarin blocks how your liver takes up vitamin K, eating foods heavy in vitamin K can act to make your blood "thicker" by giving your liver more fuel to make those clotting factors. for now, try to just be consistent in how much you eat that has vitamin K -- it's not that you have to avoid it, just trying to not be "up and down" with how much you take in for any given day or week. if you're seeing that your levels are really difficult to control, revisit if there's variability in your vitamin K intake (vitamin K is typically in dark greens, leafy greens, cranberries, and any fruit/vegetable with deep color) -obviously when you're on a blood thinner, there is more of a chance of bleeding - if it's bleeding you can put pressure on (like a nosebleed or a cut) put pressure on it for 10 minutes. if the bleeding doesn't stop with 10 minutes of pressure, then you'll need to get seen to help stop the bleeding. if it's bleeding from your GI tract (vomiting blood, pooping blood, etc) then we 'd need you seen emergently because of the varicose veins around your esophagus - they're not at all likely to bleed given what the GI doctors saw, but if they do they're something that can be disasterous quickly liver disease -your liver is inflamed and a bit dysfunctional - appearing to entirely relate to alcohol. -the varicose veins (esophageal varices) they saw around your esophagus and stomach are a sign of backpressure from your liver being more inflamed and/or scarred down -the fact that you have an inflamed and dysfunctional liver at your young age is really worrisome -- BUT, we see frequently when people stop drinking that the liver is a remarkable organ -- you can "beat it to within an inch of its life" but if you stop punishing it, often the liver can regenerate and heal. what this means is that it is absolutely imperative that you never drink again. -we've got you on the vitamins (thiamine, folic acid) to support your body with nutrients you often lose as you drink -we've got you on the beta michael and diuretics (propranolol, furosemide, spironolactone) to help take strain off the liver and surrounding blood vessels. these are important in letting the liver rest more so you're less likely to run into complications. the diuretics do require periodic labwork - in a week or two they'll want to check electrolytes as well as liver enzymes (a test called a CMP) to ensure things are at least stable, if not improving. -again the most critical part of this is to never drink again. Medication Instructions: * Warfarin is a medicine prescribed to prevent blood clots * Warfarin will thin your blood and help prevent new clots * Take your medications exactly as directed * Never skip a dose. Never take a double dose. If you miss a dose, take it as soon as you remember * It is important for your doctor to monitor your prothrombin time (PT). This is a lab test * Keep your appointment for lab tests Risk of Adverse Drug Reactions and Interactions: * Warfarin increases your risk of bleeding * The food you eat and other medications you take can affect how Warfarin works in your body * Ask your doctor about daily aspirin therapy * It is very important to talk with your doctor about all of the other medicines , antibiotics, vitamins or herbal products that you are taking * All of your medication must be approved by your doctor, including new medicines, as well as medicines you have taken before you started taking Warfarin Diet: * In order for Warfarin to work properly, it is important to keep your intake of Vitamin K as consistent as possible * You should avoid any sudden change in Vitamin K intake * Report any significant changes in your diet or weight to your doctor Call your Primary Care doctor if you experience any of the following: * Swelling or Pain in your leg * Sudden, continuous pain deep in a muscle * Pain that worsens when you are active or when you stand still for a long time * Chest Pain * Sudden Shortness of Breath * Rapid or pounding heart beat * Fainting * Dizziness * Cough with blood or bloody sputum * Sweating more than normal * Bruises * Heavy or uncontrolled bleeding * Blood in your urine, stool or vomit * Black or tarry stools Caring for Your Self at Home: * Avoid sitting, standing or lying down for long periods without moving your legs and feet * When traveling by car, stop to get out and move around at least once every 3 hours * On long airplane, train or bus rides, get up and move around when possible * If you can't get up, wiggle your toes and tighten your calves to keep your blood moving Follow Up: It is important for you to keep your follow up appointments with your medical provider. Current Hospital Diet Patient's current hospital diet: Low Sodium Diet (2gm Na) Discharge Diet Recommended Diet: Low Sodium Diet (2gm Na) Pending Studies Studies pending at discharge: no Medical Emergencies . Who to Call and When: Medical Emergencies: If at any time you feel your situation is an emergency, please call 911 immediately. . Non-Emergent Contact Non-Emergency issues call your: Primary Care Provider (, PT/INR lab test to check warfarin levels then), [facility] (Vincent HUNT will be calling you to get you scheduled with them, likely for next week; they'll likely check the CMP lab test then) . . "Provider Documentation" section prepared by Rustam Alicia. . VTE Core Measure Inpt VTE Proph given/why not?: Unfractionated heparin SQ (was on heparin gtt for DVT) Reason no anticoag overlap I/P: Treatment provided - N/A Reason no anticoag overlap @DC: Treatment provided - N/A
[2017-10-04 13:46] VITALS: BP 91/51; PULSE 73; TEMP 37; O2SAT 95
[2017-10-04] MEDS ORDERED: ENOXAPARIN 100 MG/1ML SYR SQ SCH ×2 (14:00→17:00)
[2017-10-04] MEDS ORDERED: ENOXAPARIN 1 MG/KG SQ ONE (17:00)
--- NOTE | 2017-10-05 06:46 | Discharge Summary ---
Discharge Summary Date of Service Oct 05, 2017. Discharge Summary Admission Date: Sep 29, 2017 at 21:44 Discharge Date: Oct 04, 2017 Discharge Disposition: Home Principal Diagnosis: DVT Problems/Secondary Diagnoses: Elevated LFTS Procedures: L TIBIA/FIBULA 2 VIEWS ROUTINE CLINICAL HISTORY: 31 years-old Male presenting with Pt c/o left leg pain . TECHNIQUE: Frontal and lateral views of the left lower leg were obtained. COMPARISON: None. FINDINGS: No acute fracture or malalignment. No degenerative change. No soft tissue abnormality. IMPRESSION: No acute osseous injury. LEFT LOWER EXTREMITY VENOUS DOPPLER HISTORY: Left leg swelling. COMPARISON STUDY: None. FINDINGS: There is occlusive thrombus seen within the left popliteal vein and extending into the posterior tibial and peroneal veins. The left common femoral, superficial femoral, and anterior tibial veins appear patent. IMPRESSION: DVT identified within the left popliteal, posterior tibial, and peroneal veins. ] CHEST CTA for PULMONARY ARTERIES CT DOSE: 432.16 mGy.cm HISTORY: Atypical chest pain. TECHNIQUE: Multiaxial CT images of the chest were performed following the intravenous administration of contrast to evaluate the pulmonary arteries. Maximal intensity projection images were also obtained. A dose lowering technique was utilized adhering to the principles of ALARA. COMPARISON STUDY: Chest 09/29/2017. FINDINGS: Normal caliber thoracic aorta with no evidence for dissection. The heart is normal in size. Small left pleural effusion. Evaluation of the pulmonary arteries is essentially nondiagnostic due to the timing of contrast and poor opacification of the pulmonary arterial tree. No filling defects seen within the bilateral lower lobe segmental or subsegmental pulmonary arteries. These are adequately opacified to assess for pulmonary embolus. The remaining pulmonary arteries are essentially nondiagnostic. No significant mediastinal or hilar lymphadenopathy. The mediastinal lymph nodes are subcentimeter in short axis diameter. No suspicious lytic or blastic osseous lesions. No pneumothorax. Bibasilar densities favor atelectasis. The upper to midlung zones are clear. Moderate abdominal ascites. Diffusely heterogeneous liver which is new from the prior study. IMPRESSION: 1. Near nondiagnostic evaluation of the pulmonary arteries due to the timing of contrast. Only the segmental and subsegmental pulmonary arteries of the bilateral lower lobes are adequately opacified and these appear to be patent. 2. Small left pleural effusion. 3. Bibasilar densities consistent with subsegmental atelectasis. 4. Moderate abdominal ascites with a diffusely heterogeneous liver which is new from the prior study. This could be due to a hepatitis, multifocal hepatic masses, or multifocal developing hepatic abscesses. CHEST ONE VIEW PORTABLE HISTORY: Atypical CHEST PAIN COMPARISON: Chest 10/11/2016. FINDINGS: The heart is normal in size. No pleural effusions. No pneumothorax. Bibasilar linear densities consistent with subsegmental atelectasis. Otherwise, the lungs are clear. IMPRESSION: No acute process. ] ABDOMEN AND PELVIS CT WITH IV CONTRAST CT DOSE: 934.07 mGycm HISTORY: Generalized abdominal pain. TECHNIQUE: Multiaxial CT images of the abdomen and pelvis were performed following the use of intravenous contrast. A dose lowering technique was utilized adhering to the principles of ALARA. COMPARISON STUDY: Abdomen and pelvis CT 10/11/2016. FINDINGS: Small left pleural effusion. Bibasilar densities consistent with subsegmental atelectasis. No pneumoperitoneum. No pneumatosis. No suspicious lytic or blastic osseous lesions. The kidneys, spleen, and adrenal glands are unremarkable. Moderate ascites is seen throughout the abdomen and pelvis. Normal bladder. Submucosal fat throughout the majority of the colon is again noted. This is not significantly changed. No definite bowel wall thickening or obstruction. Questionable thickening within the jejunal loops within the left side the abdomen is likely due to underdistention. The pancreas enhances normally. There is peripancreatic edema near the head. This is likely related to the ascites. However, an acute pancreatitis could also have a similar appearance. No retroperitoneal lymphadenopathy. Normal caliber abdominal aorta. Diffusely heterogeneous liver which is also new from the prior study. Mildly thickened gallbladder wall. Focal hypodensity within the caudate lobe favors focal fat. This measures proximally 4 cm. There is a normal vessel running through this area of hypodensity. The visualized hepatic and portal veins are patent. IMPRESSION: 1. Interval development of a diffusely heterogeneous liver and moderate ascites. Findings favor a hepatic abnormality such as hepatitis or developing hepatic failure. Correlation with LFTs is recommended. Multiple hepatic masses is considered less likely given the normal course of the hepatic vessels. 2. Submucosal fat throughout the majority of the colon, unchanged. This is consistent with a chronic inflammatory process. 3. No evidence for bowel obstruction. 4. Small left pleural effusion. 5. Mildly thickened gallbladder wall. This nonspecific but likely due to the edema rather than a cholecystitis. Clinical correlation recommended. 6. Edema at the pancreatic head which demonstrates normal enhancement. This is also likely due to the ascites. However, correlation with pancreatic enzymes is recommended to exclude the less likely possibility of acute pancreatitis. ULTRASOUND-GUIDED DIAGNOSTIC PARACENTESIS: HISTORY: Ascites. Procedure: The procedure and its risks, benefits and alternatives were discussed with the patient and written informed consent was obtained. Preliminary ultrasound of the abdomen was performed to determine a safe needle entry site. There were only a few small pockets to safely access the ascites. The right lateral abdomen was prepped and draped in the usual sterile fashion. 1% Lidocaine was used for local anesthesia. A 22-gauge spinal needle was inserted into the peritoneal space using ultrasound guidance. A total of 23 cc of yellow ascites was aspirated. The needle was removed and a sterile dressing applied. The patient tolerated the procedure well and there were no immediate complications. IMPRESSION: Ultrasound-guided therapeutic paracentesis with aspiration of 23 cc of ascites. The specimen was sent to the laboratory for further evaluation DUPLEX PORTAL HEPATIC VEINS HISTORY: 31 years-old Male ascites, eval portal vein flow ascites with concern for portal vein pathology COMPARISON: CT abdomen and pelvis 09/29/2017, right upper quadrant ultrasound 10/11/2016 TECHNIQUE: Multiple real-time sonogram images of the hepatic vascular structures were obtained assessing grayscale appearance, color and spectral flow FINDINGS: The portal veins are patent with hepatopedal flow. Hepatic veins are patent with phasic waveforms. Splenic vein is also patent. Diffusely heterogeneous appearance of the liver redemonstrated measuring up to 21.4 cm in length. Mild amount of perihepatic ascites. IMPRESSION: 1. Unremarkable sonographic appearance of the hepatic vasculature. 2. Diffusely heterogeneous appearance of the liver redemonstrated with small volume of perihepatic ascites. ] MRI LIVER COMBO CLINICAL HISTORY: Elevated total bilirubin. Ascites. Possible cirrhosis. ABNORMAL CT SCAN TECHNIQUE: Imaging was performed prior to and following IV contrast injection. The patient was administered 10 cc of intravenous Eovist COMPARISON STUDY: CT scan dated 09/29/2017 FINDINGS: Imaging was performed before and after the administration of contrast. Axial and coronal imaging was performed. There is a moderate volume of ascites. There is no ductal dilatation. No renal masses are visualized. The spleen is borderline enlarged measuring 11.7 cm. There is a trace right pleural effusion and small left pleural effusion. The liver is diffusely inhomogeneous with multiple areas of steatosis. An element of acute hepatitis possibly alcoholic is suspected. Diffusion-weighted images reveal no suspicious hepatic masses. There is a nodular contour of the serosal surface of the liver, consistent with cirrhosis. No pancreatic masses are visualized. There is no pancreatic ductal dilatation. IMPRESSION: 1. Hepatic steatosis and hepatitis/cirrhosis 2. Borderline splenomegaly 3. Moderate ascites 4. Small left pleural effusion and trace right pleural effusion 5. No evidence of ductal dilatation. MRCP CLINICAL HISTORY: Elevated bilirubin. Cirrhosis. Evaluate for biliary calculus. COMPARISON STUDY: CT scan dated 09/29/2017 FINDINGS: There is moderate ascites. The liver serosal surface is slightly nodular suggesting underlying cirrhosis. There is mild splenomegaly. No gallstones are visualized. There is no ductal dilatation. No biliary ductal calculi are visualized. There is no pancreatic ductal dilatation. IMPRESSION: 1. Moderate ascites 2. Cirrhotic morphology of the liver 3. No ductal dilatation. No biliary ductal calculi are visualized Procedure Date: 10/04/2017 10:12 AM Procedure: Upper GI endoscopy Indications: Cirrhosis with suspected esophageal varices Medicines: Monitored Anesthesia Care Complications: No immediate complications. Estimated blood loss: None. Estimated Blood Loss: Estimated blood loss: none. Procedure: Pre-Anesthesia Assessment: - Prior to the procedure, a History and Physical was performed, and patient medications, allergies and sensitivities were reviewed. The patient's tolerance of previous anesthesia was reviewed. - ASA Grade Assessment: III - A patient with severe systemic disease. After obtaining informed consent, the endoscope was passed under direct vision. Throughout the procedure, the patient's blood pressure, pulse, and oxygen saturations were monitored continuously. The scope was introduced through the mouth, and advanced to the third part of duodenum. The upper GI endoscopy was accomplished with ease. The patient tolerated the procedure well. Findings: Grade II, large (> 5 mm) varices were found in the lower third of the esophagus. The Z-line was regular and was found 40 cm from the incisors. Mild portal hypertensive gastropathy was found in the entire examined stomach. The examined duodenum was normal. Impression: - Grade II and large (> 5 mm) esophageal varices. - Z-line regular, 40 cm from the incisors. - Portal hypertensive gastropathy. - Normal examined duodenum. - No specimens collected. Consultations: Gastroenterology Medication Reconciliation New Medications: Enoxaparin (Lovenox) 80 Mg/0.8 Ml Inj 80 MG SQ Q12H, #6 SYR Thiamine Hcl (B-1) 100 Mg Tab 1 TAB PO DAILY, #30 TAB Warfarin Sod (Coumadin) 5 Mg Tab 1 TAB PO DAILY, #30 TAB Folic Acid (Folic Acid) 1 Mg Tab 1 MG PO QAM, #30 TAB Furosemide (Furosemide) 20 Mg Tab 20 MG PO QAM, #30 TAB Multiple Vitamin (Daily-Paul) 1 Tab Tab 1 TAB PO QAM, #30 TAB Propranolol (Inderal) 10 Mg Tab 10 MG PO BID, #60 TAB Spironolactone (Spironolactone) 100 Mg Tab 50 MG PO QAM, #60 TAB Discharge Exam Constitutional: No fever, No chills, No weakness Respiratory: No cough, No shortness of breath Cardiovascular: No chest pain, No edema, No palpitations Abdomen: No pain, No nausea, No vomiting, No diarrhea, No constipation Male : No dysuria, No urinary frequency Heme: No abnormal bleeding/bruising, No clotting problems Skin: No rash, No itch GENERAL: alert, well appearing, well nourished, no distress, non-toxic EYE EXAM: normal conjunctiva, PERRL and EOM's grossly intact, no scleral icterus NECK: supple, no adenopathy LUNGS: Clear to auscultation. Normal chest wall mechanics HEART: no murmurs, S1 normal and S2 normal ABDOMEN: abdomen soft, non-tender, no fluid wave normo-active bowel sounds, no masses, no rebound or guarding. SKIN: no rashes and no bruising , no jaundice LOWER EXTREMITIES: No pitting edema NEURO EXAM: Normal sensorium, cranial nerves II-XII grossly intact, normal speech, no gross weakness of arms, no gross weakness of legs. No [facility] Hospital Course H&P This is a 31 y/o M who presents with Left lower leg pain x 1 week. He reports it was sudden onset and persistent. He reports the pain is throbbing. It is relieved with elevation and worsened with standing. He denies any recent travel , immobility or surgery. In the ER, he was found to have a DVT of the left lower extremity. He does have a family history of blood clots. Concurrently his bilirubin was elevated and CT abdomen was concerning for a developing hepatitis. The patient reports drinking 6 beers a day for the last several years. He denies drug use and other high risk behaviors. He does smoke 10 Cigs a day. He denies abdominal pain, nausea, vomiting Hospital course LLE DVT Involving left popliteal, posterior tibial and peroneal veins Placed on Heparin Drip without bolus thrombophilia markers unremarkable ON Discharge he was transitioned to warfarin with a lovenox bridge. Elevated LFTS's Ascites Concern for developing hepatitis / early cirrhosis Hepatitis panel: Hep A IGm borderline, otherwise panel unremarkable Iron studies- ferritin at 753.2 Discriminate initially score of 21, MELD 17 Consulted GI portal vein patent on ct abd. Ascites: Paracentesis performed: no SBP, SAAG >1.1 , meaning Portal HTN, Started on Lasic, Aldactone, Propranolol MRI: Hepatic steatosis and hepatitis/cirrhosis, Moderate ascites, Small left pleural effusion and trace right pleural effusion,No evidence of ductal dilatation. MRCP: Cirrhotic morphology of the liver, No ductal dilatation. No biliary ductal calculi are visualized. EGD: Grade II and large esophageal varices , Portal gastropathy Due to lack of active bleeding, decision made to continue anticoagulation . Discharged with followup to PCP, Gastroenterology Alcohol Abuse Risk of withdrawal- Ativan PRN Placed on protocol encouraged alcohol cessation Tobacco use Smoking cessation patient declined nicotine patch Resident Physician Supervision Note: I interviewed and examined the patient. Discussed with Dr. Schneider and agree with findings and plan as documented in the note. Any exceptions or clarifications are listed here: None Documented By: Rustam Alicia feeling better wants to go home d/w GI. discussed risks/benefits extensively w pt and mother vitals noted nad breathing unlabored no pallor or icterus DVT - lovenox bridge to coumadin. next INR 2 days. likely will only need treatment for ~3 months. ?cause of clot - will need ongoing outpt f/u and considerations. as below noted, risk/benefit favors continuing anticoagulation for this as opposed to IVC filter (filter being sub-optimal treatment for clot, invasive, etc and anticoagulation not raising risk of bleeding excessively given his overall circumstances) cirrhosis w portal hypertension - d/w GI no active bleeding. all in agreement that risk of bleeding is low enough to treat clot rather than subject pt to IVC filter procedure. pt understands delicate risk/benefit ratio and agrees w treatment, emphasized adherence to lab f/u and discussed that coumadin requires close monitoring for accurate dosing. also discussed absolute cessation of EtOH to avoid further progression of liver disease. he expresses understanding. stable for home. avoid EtOH, avoid NSAIDs Total Time Spent: Less than 30 minutes This includes examination of the patient, discharge planning, medication reconciliation, and communication with other providers. Discharge Instructions Please refer to the electronic Patient Visit Report (Discharge Instructions) for additional information.
[2017-10-05] MEDS ORDERED: NADOLOL 40 MG TAB PO SCH ×2 (09:00)
[2017-10-06 12:32] LABS: ANA SCREEN TC 249X NEGATIVE (NEGATIVE); HEPATITIS A IGM TC 51813E BORDERLINE (NON-REACTIVE); HEPATITIS B CORE IGM TC51854R NON-REACTIVE (NON-REACTIVE)
[2017-10-06 15:31] LABS: ANTICARDIOLIPID AB IGA <11 APL (< = 11)
== END 2017-10-04 15:05 | disposition home or self-care (01) | DRG 299 ==
LOC: C.EDB 16:52 → C.MSW 21:44 → ENRESERV 21:53
PROVIDERS: ADMIT Internal Medicine; ATTEND Internal Medicine
PROC: 0DJ08ZZ Inspection of Upper Intestinal Tract, Via Natural or Artificial Opening Endoscopic (ICD-10-PCS; principal; 2017-10-04 09:47)
DX: I82.402 Acute embolism and thrombosis of unspecified deep veins of left lower extremity (principal); K72.00 Acute and subacute hepatic failure without coma; E87.1 Hypo-osmolality and hyponatremia; K70.30 Alcoholic cirrhosis of liver without ascites; E87.6 Hypokalemia; F17.210 Nicotine dependence, cigarettes, uncomplicated; F10.10 Alcohol abuse, uncomplicated; Z86.718 Personal history of other venous thrombosis and embolism

== ENCOUNTER → 2017-10-06 | Outpatient (CLI) | payer OTHER ==
[~2017-10-06] MED LIST changes: +CMD5 PO; +ENOX80IN SQ; +LSX20 PO; +MULT-890 PO; +PROP10TA7 PO; +SPRN100 PO; +THIA1TAB PO; -THM100 PO
[2017-10-06 12:25] LABS: INR 1.8 (0.9-1.1); PROTHROMBIN TIME (PATIENT) 18.6 SECONDS (9.0-12.0)
[2017-10-06 12:47] LABS: BLOOD UREA NITROGEN 6 mg/dl (7-18); CREATININE 0.89 mg/dl (0.60-1.40); GLUCOSE 97 mg/dl (70-99)
[2017-10-06 12:48] LABS: BUN/CREATININE RATIO 6.6 (10-20); CALCIUM 8.6 mg/dl (8.5-10.1); CARBON DIOXIDE 28 mmol/L (21-32); CHLORIDE 101 mmol/L (98-107); POTASSIUM 3.5 mmol/L (3.5-5.1); SODIUM 135 mmol/L (136-145)
== END | disposition home or self-care (01) ==
LOC: C.LABPBG 10:05
PROVIDERS: ATTEND Family Medicine
DX: I82.409 Acute embolism and thrombosis of unspecified deep veins of unspecified lower extremity (principal); K74.60 Unspecified cirrhosis of liver

== ENCOUNTER → 2017-10-11 | Outpatient (CLI) | payer OTHER | END | disposition home or self-care (01) | LOC: C.LABPBG 13:20 | PROVIDERS: ATTEND Family Medicine | DX: I82.409 Acute embolism and thrombosis of unspecified deep veins of unspecified lower extremity (principal) ==

== ENCOUNTER 2022-08-09 08:30 | Inpatient (IN) ==
[2022-08-09] MEDS ORDERED: SODIUM CHLORIDE 0.9% 1000ML 1,000 ML IV STA (09:01)
[2022-08-09 09:35] LABS: Appearance Urine Clear (Clear); Bacteria Urine Automated Negative (Negative); Blood Urine Negative (Negative); Color Urine Dark Yellow; Epithelial Cell Urine Auto 0-5 /lpf (0-5); Glucose Urine UA Negative (Negative); Ketones Urine Trace (Negative); Leukocyte Esterase Urine Negative (Negative); Nitrite Urine Positive (Negative); Protein Urine Negative (Negative); RBC Urine Automated 0-4 /hpf (0-4); Specific Gravity Urine 1.013 (1.000-1.030); Urobilinogen Urine Positive (Negative); WBC Urine Automated 0 /hpf (0-5)
[2022-08-09 09:38] LABS: Bilirubin Urine 3+ (Negative)
[2022-08-09 09:55] LABS: Hematocrit (blood only) 43.4 % (40.1-51.0); Hemoglobin 15.5 g/dl (14.0-18.0); Mean Corpuscular Hemoglobin 35.3 pg (25.0-34.0); Mean Corpuscular Hgb Conc 35.7 g/dL (32.0-36.0); Mean Corpuscular Volume 98.9 fL (80.0-100.0); Mean Platelet Volume 11.2 fL (9.4-12.4); Platelet Count 50 K/uL (130-400); RDW Coefficient of Variation 18.3 % (11.5-14.5); RDW Standard Deviation 65.7 fL (36.4-46.3); Red Blood Count 4.39 M/uL (4.63-6.08); White Blood Count 6.37 K/ul (4.8-10.8)
[2022-08-09 10:03] LABS: Alkaline Phosphatase 182 U/L (34-104); Blood Urea Nitrogen 8 mg/dl (6-23)
[2022-08-09 10:06] LABS: Basophils # (auto) 0.04 K/uL (0-0.2); Basophils % (auto) 0.6 %; Eosinophils # (auto) 0.06 K/uL (0-0.50); Eosinophils % (auto) 0.9 %; Immature Granulocytes # (auto) 0.04 K/uL (0.00-0.02); Immature Granulocytes % (auto) 0.6 %; Lymphocytes # (auto) 0.82 K/uL (1.2-3.4); Lymphocytes % (auto) 12.9 %; Monocytes # (auto) 0.78 K/uL (0.24-0.82); Monocytes % (auto) 12.2 %; Neutrophils # (auto) 4.63 K/uL (1.4-6.5); Neutrophils % (auto) 72.8 %
[2022-08-09 10:07] LABS: Alanine Aminotransferase 69 U/L (7-52); Albumin Globulin Ratio 0.8 (0.9-2); Albumin Level 3.1 gm/dl (3.4-5.0); Anion Gap 6 (3-11); Aspartate Aminotransferase 149 U/L (13-39); Bilirubin,Total 23.5 mg/dl (0.2-1.0); Calcium 8.3 mg/dl (8.5-10.1); Carbon Dioxide 28 mmol/L (21-32); Chloride 99 mmol/L (98-107); Globulin 3.9 gm/dl (2.5-4.0); Glucose 105 mg/dl (70-99(Fasting)); Potassium 3.5 mmol/L (3.5-5.1); Sodium 133 mmol/L (136-145)
[2022-08-09 10:36] LABS: iSTAT Ionized Calcium 1.06 mmol/l (1.12-1.32); iSTAT Potassium 3.4 mmol/L (3.3-5.0)
[2022-08-09] MEDS ORDERED: OPTIRAY 350 100ml IV ONE (10:40)
--- NOTE | 2022-08-09 11:18 | CT Scan Report ---
ABDOMEN AND PELVIS CT WITH IV CONTRAST CT DOSE: 703.51 mGy.cm HISTORY: Acute abdominal pain with jaundice Jaundice TECHNIQUE: Multiaxial CT images of the abdomen and pelvis were performed following the IV administrat ion of 87 cc of Optiray, A dose lowering technique was utilized adhering to the principles of ALARA. COMPARISON STUDY: Liver MRI 09/28/2017, CT 09/29/2017 FINDINGS: Clear lung bases. No pneumatosis or pneumoperitoneum. The spleen is enlarged, 14.2 cm in le ngth. Unremarkable pancreas and adrenal glands. Mild gallbladder distention with gallbladder wall thi ckening and cholelithiasis. Mild pericholecystic inflammation. No biliary ductal dilation identified. Portal vein appears patent. Hepatic steatosis with cirrhosis. No hepatic mass identified. Unremarkable kidneys. No renal or ureteral calculi or hydronephrosis. Partial distention of the urina ry bladder. Unremarkable prostate. Aorta and IVC are unremarkable. Borderline enlarged retroperitonea l lymph nodes are likely reactive. Upper abdominal varicosities. No bowel obstruction or bowel wall t hickening. Normal appendix. Tiny fat and fluid filled umbilical hernia. Unremarkable soft tissues. De generative changes of the spine, pelvis and hips. No destructive bone lesions identified. IMPRESSION: 1. Cholelithiasis with mild gallbladder distention, wall thickening and pericholecystic stranding. Co rrelate clinically to exclude acute cholecystitis. 2. Hepatic steatosis with cirrhosis, abdominal varicosities and splenomegaly compatible with portal v enous hypertension. 3. No bowel obstruction or bowel wall thickening. 4. Normal appendix. ACT 112: Negative or not required by law. The above report was generated using voice recognition software. It may contain grammatical, syntax o r spelling errors. Electronically signed by: Almas Thomas M.D. 08/09/2022 11:16 AM
--- NOTE | 2022-08-09 13:59 | History & Physical Report ---
Date of Service August 09, 2022 Assessment & Plan (1) Transaminitis: (2) Cholelithiasis: Plan: Admit to [facility] Patient presenting from home with reports of nausea, generalized malaise x 5 days. Patient developed jaundice yesterday. In the ED, patient found to have transaminitis (T bili 23.5, AST 149, ALT 69, alk phos 182). CT ABD/pelvis showing cholelithiasis with mild gallbladder distention, wall thickening and pericholecystic stranding. History of alcoholic cirrhosis with last labs 04/2020 - LFTs 04/2020-T bili 2.1, alk phos 153, ALT 28, AST 37. Patient reports he has maintained sobriety since that time. MRCP Start empiric IV Zosyn N.p.o. for now, IVF General surgery and GI consults (3) Liver cirrhosis: Plan: History of alcoholic cirrhosis with esophageal varices, ascites, portal hypertensive gastropathy. Last evaluated 04/2020 and has been lost to follow-up since. Patient no longer taking daily medications. CT ABD/pelvis today showing Hepatic steatosis with cirrhosis, abdominal varicosities and splenomegaly compatible with portal venous hypertension. (4) DVT prophylaxis: Plan: SCDs for now History of Present Illness Chief Complaint: Yellow skin Primary Care Provider: NO PCP 36-year-old male with prior history of alcoholic cirrhosis, alcoholic hepatitis, esophageal varices, ascites, SBP, history of DVT s/p Coumadin therapy, and other problems listed below who presents to the ED for evaluation of nausea and yellowing of the skin. Patient reports over the past 5 days, he has had nausea, generalized malaise, and suspected low-grade fever. Patient did not take his temperature. Patient denies abdominal pain, vomiting, diarrhea. Patient was last evaluated 04/2020 by GI for alcoholic cirrhosis. Patient reports maintaining sobriety since that time however did have " a couple of beers over the summer". Patient no longer takes daily medications. Was scheduled for follow-up EGD 05/2020 however did not show for the appointment and was not rescheduled. Patient denies chest pain or shortness of breath. Reports occasional episodes of lightheadedness and dizziness with standing too quickly, denies any syncopal event. No urinary symptoms. In the ED, patient was found to have transaminitis. CT ABD/pelvis shows Cholelithiasis with mild gallbladder distention, wall thickening and pericholecystic stranding. Hepatic steatosis with cirrhosis, abdominal varicosities and splenomegaly compatible with portal venous hypertension. Patient was given IVF. Allergies Allergy/AdvReac Type Severity Reaction Status Date / Time acetaminophen Allergy Intermediate ELEVATED Verified 08/09/22 10:36 FEVER amoxicillin Allergy Intermediate UNKNOWN Verified 08/09/22 10:36 Penicillins Allergy Intermediate UNKNOWN Verified 08/09/22 10:36 Home Medications Medication Instructions Recorded Confirmed Type No Known Home Medications 08/09/22 08/09/22 History Past Med/Surg History Medical History Alcoholic hepatitis Ascites Esophageal varices History of deep venous thrombosis Liver cirrhosis SBP (spontaneous bacterial peritonitis) Surgical History No significant past surgical history Family History Grandmother (Maternal) Colorectal cancer Mother Stroke Social History Smoking Status: Current every day smoker Tobacco Type: Cigarettes Hx Alcohol Use: No (prior heavy ETOH use w/ cirrhosis) Hx Substance Use: No Feels Safe at Home: Yes Review of Systems Review of Systems: ROS per HPI, all other systems reviewed and negative Physical Exam Constitutional: WD/WN, vitals as above Eyes: PERRL, conjunctivae normal, anicteric sclerae ENMT: external ear and nose normal, oropharynx normal Mouth: + poor dentition Respiratory: normal respiratory effort, lungs clear to auscultation Cardiovascular: Rate/Rhythm: regular rate and regular rhythm Vessels: normal peripheral pulses Extremities: no edema Gastrointestinal (Abdomen): normal bowel sounds, soft, nontender, no hepatosplenomegaly Musculoskeletal: no cyanosis or clubbing, extremities motor strength 5/5 Skin: no rashes, warm and dry + jaundice Neurologic: PERRL, EOMI, accommodation nl, no face palsy, no dysarthria Psychiatric: A+Ox3, euthymic affect Results & Data Results & Data ([facility]) Vital Signs (Past 12 Hours) Vital Signs Temp Pulse Pulse Resp BP BP Pulse Ox 08/09/22 12:02 96 H 20 132/80 97 08/09/22 09:31 88 16 130/76 97 08/09/22 08:32 37.2 C 119 H 18 136/81 96 O2 Del Method 08/09/22 12:02 Room Air 08/09/22 09:31 08/09/22 08:32 Room Air Laboratory Results Short CBC 08/09/22 Range/Units 09:13 WBC 6.37 (4.8-10.8) K/ul Hgb 15.5 (14.0-18.0) g/dl Hct 43.4 (40.1-51.0) % Plt Count 50 L (130-400) K/uL BMP 08/09/22 09:13 Sodium 133 L Potassium 3.5 Chloride 99 Carbon Dioxide 28 BUN 8 Creatinine TNP Glucose 105 H Calcium 8.3 L Liver Function 08/09/22 Range/Units 09:13 Total Bilirubin 23.5 H (0.2-1.0) mg/dl AST 149 H (13-39) U/L ALT 69 H (7-52) U/L Alkaline Phosphatase 182 H (34-104) U/L Albumin 3.1 L (3.4-5.0) gm/dl Urine 08/09/22 Range/Units 09:19 Urine Color Dark Yellow Urine Appearance Clear (Clear) Urine pH 7.0 (4.5-7.5) Ur Specific [place] 1.013 (1.000-1.030) Urine Protein Negative (Negative) Urine Glucose (UA) Negative (Negative) Diagnostic Findings Abdomen/Pelvis CT 08/09/22 09:[address] WITH IV CONTRAST CT DOSE: 703.51 mGy.cm HISTORY: Acute abdominal pain with jaundice Jaundice TECHNIQUE: Multiaxial CT images of the abdomen and pelvis were performed following the IV administration of 87 cc of Optiray, A dose lowering technique was utilized adhering to the principles of ALARA. COMPARISON STUDY: Liver MRI 09/28/2017, CT 09/29/2017 FINDINGS: Clear lung bases. No pneumatosis or pneumoperitoneum. The spleen is enlarged, 14.2 cm in length. Unremarkable pancreas and adrenal glands. Mild gallbladder distention with gallbladder wall thickening and cholelithiasis. Mild pericholecystic inflammation. No biliary ductal dilation identified. Portal vein appears patent. Hepatic steatosis with cirrhosis. No hepatic mass identified. Unremarkable kidneys. No renal or ureteral calculi or hydronephrosis. Partial distention of the urinary bladder. Unremarkable prostate. Aorta and IVC are unremarkable. Borderline enlarged retroperitoneal lymph nodes are likely reactive. Upper abdominal varicosities. No bowel obstruction or bowel wall thickening. Normal appendix. Tiny fat and fluid filled umbilical hernia. Unremar kable soft tissues. Degenerative changes of the spine, pelvis and hips. No destructive bone lesions identified. IMPRESSION: 1. Cholelithiasis with mild gallbladder distention, wall thickening and pericholecystic stranding. Correlate clinically to exclude acute cholecystitis. 2. Hepatic steatosis with cirrhosis, abdominal varicosities and splenomegaly compatible with portal venous hypertension. 3. No bowel obstruction or bowel wall thickening. 4. Normal appendix. ACT 112: Negative or not required by law. The above report was generated using voice recognition software. It may contain grammatical, syntax or spelling errors. Electronically signed by: Almas Thomas M.D. 08/09/2022 11:16 AM Code Status & VTE Plan VTE Prophylaxis Plan VTE Prophylaxis will be ordered: Yes Supervising Physician Co-Signing Physician Notes Patient with history of alcohol use disorder, reports last drink ~2 weeks ago, ETOH cirrhosis with a history of esophageal varices and ascites presents with several days of worsening jaundice. Denies abdominal pain, n/v/d, fevers or chills at this time. Physical exam significant for generalized jaundice, abdominal distention but soft and nontender, trace LE edema. Labs significant for total bilirubin to 23.5, elevated ALP and liver enzymes to 100s, no leukocytosis, platelets 50k, INR 1.7, Na 133, UA with nitrites but no pyuria, asymptomatic. MELD-Na not able to calculate given high bilirubin and Cr pending, Maddrey discriminant function at 46.5. CT-AP with evidence of gallbladder wall thickening, MRCP negative for acute cholecystitis and clinical picture does not favor cholecystitis or cholangitis. High concern for alcoholic hepatitis, given Maddrey score would indicate poor prognosis. GI consulted and will follow Urine culture before considering starting steroids if patient has concurrent UTI. Will follow up blood work and urine culture. Empiric abx for now and close monitoring. Case discussed with DORIS [place] and agree with rest of plan as outlined above.
[2022-08-09] MEDS ORDERED: PIPERACILLIN/TAZOBACTAM 3.375 GM in DEXTROSE 5% 100 ML IV SCH (14:00)
--- NOTE | 2022-08-09 14:11 | XRay Report ---
[facility] 3 VIEWS HISTORY: pre-MRI screening. COMPARISON: None. FINDINGS: There are no radiopaque foreign bodies identified within the orbits. A lip piercing is note d. IMPRESSION: No radiopaque foreign bodies identified within the orbits. ACT 112: Negative or not required by law. Electronically signed by: Josue Peña M.D. 08/09/2022 2:10 PM
[2022-08-09] MEDS ORDERED: PIPERACILLIN/TAZOBACTAM 3.375 GM in DEXTROSE 5% 100 ML IV ONE (14:45)
--- NOTE | 2022-08-09 15:20 | Magnetic Resonance Report ---
MRCP CLINICAL HISTORY: transaminitis, ? choledocholithiasis TECHNIQUE: Utilizing a 1.5 Nohemy magnet and dedicated coil, multiplanar, multiecho imaging of the upp er abdomen was performed utilizing heavily T2 weighted pulsing sequences without IV contrast. COMPARISON STUDY: CT of the abdomen and pelvis performed earlier today. MRI of the abdomen September 30, 2017. FINDINGS: The liver is cirrhotic. No hepatic lesions are identified on this unenhanced exam. No intra or extra hepatic biliary ductal dilatation is identified. No common bile duct calculi are identified although sensitivity for detection of small calculi is diminished given motion artifact on this exam . There is no pancreatic ductal dilatation. Gallbladder is mildly distended. There is a gallstone wit hin the gallbladder. Gallbladder wall thickening is noted. Trace perihepatic ascites is present. Mild splenomegaly is noted. Hypointense foci within the spleen are likely related to portal hypertension. Large upper abdominal varices are noted. Unenhanced images of the adrenal glands, kidneys and pancre as are unremarkable. Possible pancreas divisum. IMPRESSION: 1. No biliary ductal dilatation. No common bile duct calculi identified although sensitivity for dete ction of small calculi diminished on this exam. 2. Cirrhosis. Splenomegaly, trace abdominal ascites and large upper abdominal varices indicative of p ortal hypertension. 3. Cholelithiasis with gallbladder distention and nonspecific gallbladder wall thickening. If indicat ed, a hepatobiliary scan could be obtained to exclude acute cholecystitis. ACT 112: Negative or not required by law. Electronically signed by: Josue Peña M.D. 08/09/2022 3:19 PM
--- NOTE | 2022-08-09 15:30 | Surgery Consultation ---
Date of Consultation August 09, 2022 Assessment & Plan (1) Liver cirrhosis: (2) Cholelithiasis: Plan 36 year-old male with history of alcoholic cirrhosis and hepatitis presented to Ed with generalized malaise, nausea for past 5 days and jaundice starting yesterday. Denies of any abdominal pain. No leukocytosis. CT scan with cholelithiasis and gallbladder distension and fluid. MRCP without evidence of choledocholithiasis and nonspecific gallbladder wall thickening with choleli thiasis. Plan: Discussed with patient that given his clinical presentation without any abdominal pain, fevers, elevated leukocytosis he likely does not have any acute cholecystitis and the nonspecific findings of gallbladder wall thickening and pericholecystic fluid are likely due to his cirrhosis. His abdominal examination is benign. Given these findings and evidence of cirrhosis on MRCP/CT would not recommend cholecystectomy at this time. As he has had no pain, do not feel HIDA scan is indicated. Medicine admitting patient GI on board. Recommending to evaluate for Preston or possible hemochromatosis. Discussed patient with Dr. Ward who is to evaluate patient and agrees with above. History of Present Illness Reason for Consultation: cholelithiasis Requesting Physician: DORIS Washington Attending Physician: Nilo Fernandez History of Present Illness Braxton is a 36 year-old male who presented to emergency room with complaint of generalized malaise, jaundice, and nausea. States he may have had a low grade fever but did not take temperature. Denies of any abdominal pain now or prior to coming to the ED. States he came because of the jaundice. States he has never had any issues with his gallbladder in the past. Denies of any chills, sweats, vomiting, abdominal pain, or changes in his bowel habits. Denies of any blood in stools. He had a CT scan of abdomen and pelvis which is showing cholelithiasis with distended gallbladder and pericholecystic fluid. Labs show no leukocytosis however t. bili elevated at 23 and lfts and alk phos elevated. Braxton has history of alcoholic cirrhosis and last drank heavily about 4 years ago. Drank heavily for 10 years at that time. Used to follow with [facility] at [facility]. States he has had a few drinks in the past couple of weeks. Not as heavy as prior to 4 years ago. No known sick contacts at home. Allergies Allergy/AdvReac Type Severity Reaction Status Date / Time acetaminophen Allergy Intermediate ELEVATED Verified 08/09/22 10:36 FEVER amoxicillin Allergy Intermediate UNKNOWN Verified 08/09/22 10:36 Penicillins Allergy Intermediate UNKNOWN Verified 08/09/22 10:36 Home Medications Medication Instructions Recorded Confirmed Type No Known Home Medications 08/09/22 08/09/22 History Patient History Medical History (Updated 08/09/22 @ 14:05 by DORIS Washington) Alcoholic hepatitis Ascites Esophageal varices History of deep venous thrombosis Liver cirrhosis SBP (spontaneous bacterial peritonitis) Surgical History No significant past surgical history Family History (Updated 08/09/22 @ 13:58 by DORIS Washington) Grandmother (Maternal) Colorectal cancer Mother Stroke Social History Smoking Status: Current every day smoker Tobacco Type: Cigarettes Hx Alcohol Use: No (prior heavy ETOH use w/ cirrhosis) Hx Substance Use: No Feels Safe at Home: Yes Results & Data ([facility]) Vital Signs (Past 12 Hours) Vital Signs Temp Pulse Pulse Resp BP BP Pulse Ox 08/09/22 14:58 101 H 20 137/73 95 08/09/22 12:02 96 H 20 132/80 97 08/09/22 09:31 88 16 130/76 97 08/09/22 08:32 37.2 C 119 H 18 136/81 96 O2 Del Method 08/09/22 14:58 Room Air 08/09/22 12:02 Room Air 08/09/22 09:31 08/09/22 08:32 Room Air Laboratory Results 08/09/22 08/09/22 08/09/22 Range/Units 14:54 14:54 14:54 WBC (4.8-10.8) K/ul RBC (4.63-6.08) M/uL Hgb (14.0-18.0) g/dl POC Hgb (14.0-18.0) g/dl Hct (40.1-51.0) % POC Hct (42-52) % MCV (80.0-100.0) fL MCH (25.0-34.0) pg MCHC (32.0-36.0) g/dL RDW Std Deviation (36.4-46.3) fL RDW Coeff of Marilyn (11.5-14.5) % Plt Count (130-400) K/uL MPV (9.4-12.4) fL Immature Gran % (Auto) % Neut % (Auto) % Lymph % (Auto) % Preston % (Auto) % Eos % (Auto) % Baso % (Auto) % Neut # (Auto) (1.4-6.5) K/uL Lymph # (Auto) (1.2-3.4) K/uL Preston # (Auto) (0.24-0.82) K/uL Eos # (Auto) (0-0.50) K/uL Baso # (Auto) (0-0.2) K/uL Immature Gran # (Auto) (0.00-0.02) K/uL PT 17.7 H (9.0-12.0) Seconds INR 1.7 H (0.9-1.1) POC Sodium (135-144) mmol/L Sodium (136-145) mmol/L POC Potassium (3.3-5.0) mmol/L Potassium (3.5-5.1) mmol/L POC Chloride (101-112) mmol/L Chloride (98-107) mmol/L Carbon Dioxide (21-32) mmol/L POC Total CO2 (24-31) mmol/L Anion Gap (3-11) POC Anion Gap (16-25) mmol/L POC BUN (7-18) mg/dl BUN (6-23) mg/dl Creatinine Pending POC Creatinine (0.6-1.3) mg/dl Est Cr Clr Drug Dosing Pending Est GFR ( Amer) Pending Est GFR (Non-Af Amer) Pending BUN/Creatinine Ratio Glucose (70-99(Fasting)) mg/dl POC Glucose (other) (70-99) mg/dl Calcium (8.5-10.1) mg/dl POC Ioniz Calcium Bennett (1.12-1.32) mmol/l Total Bilirubin (0.2-1.0) mg/dl AST (13-39) U/L ALT (7-52) U/L Alkaline Phosphatase (34-104) U/L Total Protein (6.0-8.3) gm/dl Albumin (3.4-5.0) gm/dl Globulin (2.5-4.0) gm/dl Albumin/Globulin Ratio (0.9-2) Lipase Urine Color Urine Appearance (Clear) Urine pH (4.5-7.5) Ur Specific Lutts (1.000-1.030) Urine Protein (Negative) Urine Glucose (UA) (Negative) Urine Ketones (Negative) Urine Blood (Negative) Urine Nitrite (Negative) Urine Bilirubin (Negative) Urine Urobilinogen (Negative) Ur Leukocyte Esterase (Negative) Urine WBC (Auto) (0-5) /hpf Urine RBC (Auto) (0-4) /hpf U Hyaline Cast (Auto) (0-5) /lpf U Epithel Cells (Auto) (0-5) /lpf Urine Bacteria (Auto) (Negative) Urine Opiates Screen Ur Methadone, Qual Urine Barbiturates Ur Phencyclidine (PCP) U Amphetamin/Meth Scrn MDMA (Ecstasy) Screen U Benzodiazepines Scrn Ur Cocaine Metabolite U Marijuana (THC) Screen Ethyl Alcohol mg/dL Pending SARS-CoV-2, RNA, NAAT (NEGATIVE) 08/09/22 08/09/22 08/09/22 Range/Units 11:50 10:20 09:19 WBC (4.8-10.8) K/ul RBC (4.63-6.08) M/uL Hgb (14.0-18.0) g/dl POC Hgb 15.0 (14.0-18.0) g/dl Hct (40.1-51.0) % POC Hct 44 (42-52) % MCV (80.0-100.0) fL MCH (25.0-34.0) pg MCHC (32.0-36.0) g/dL RDW Std Deviation (36.4-46.3) fL RDW Coeff of Marilyn (11.5-14.5) % Plt Count (130-400) K/uL MPV (9.4-12.4) fL Immature Gran % (Auto) % Neut % (Auto) % Lymph % (Auto) % Preston % (Auto) % Eos % (Auto) % Baso % (Auto) % Neut # (Auto) (1.4-6.5) K/uL Lymph # (Auto) (1.2-3.4) K/uL Preston # (Auto) (0.24-0.82) K/uL Eos # (Auto) (0-0.50) K/uL Baso # (Auto) (0-0.2) K/uL Immature Gran # (Auto) (0.00-0.02) K/uL PT (9.0-12.0) Seconds INR (0.9-1.1) POC Sodium 136 (135-144) mmol/L Sodium (136-145) mmol/L POC Potassium 3.4 (3.3-5.0) mmol/L Potassium (3.5-5.1) mmol/L POC Chloride 98 L (101-112) mmol/L Chloride (98-107) mmol/L Carbon Dioxide (21-32) mmol/L POC Total CO2 26 (24-31) mmol/L Anion Gap (3-11) POC Anion Gap 17.0 (16-25) mmol/L POC BUN 7 (7-18) mg/dl BUN (6-23) mg/dl Creatinine POC Creatinine 1.0 (0.6-1.3) mg/dl Est Cr Clr Drug Dosing Est GFR ( Amer) Est GFR (Non-Af Amer) BUN/Creatinine Ratio Glucose (70-99(Fasting)) mg/dl POC Glucose (other) 98 (70-99) mg/dl Calcium (8.5-10.1) mg/dl POC Ioniz Calcium Bennett 1.06 L (1.12-1.32) mmol/l Total Bilirubin (0.2-1.0) mg/dl AST (13-39) U/L ALT (7-52) U/L Alkaline Phosphatase (34-104) U/L Total Protein (6.0-8.3) gm/dl Albumin (3.4-5.0) gm/dl Globulin (2.5-4.0) gm/dl Albumin/Globulin Ratio (0.9-2) Lipase Urine Color Urine Appearance (Clear) Urine pH (4.5-7.5) Ur Specific Lutts (1.000-1.030) Urine Protein (Negative) Urine Glucose (UA) (Negative) Urine Ketones (Negative) Urine Blood (Negative) Urine Nitrite (Negative) Urine Bilirubin (Negative) Urine Urobilinogen (Negative) Ur Leukocyte Esterase (Negative) Urine WBC (Auto) (0-5) /hpf Urine RBC (Auto) (0-4) /hpf U Hyaline Cast (Auto) (0-5) /lpf U Epithel Cells (Auto) (0-5) /lpf Urine Bacteria (Auto) (Negative) Urine Opiates Screen Cancelled Ur Methadone, Qual Cancelled Urine Barbiturates Cancelled Ur Phencyclidine (PCP) Cancelled U Amphetamin/Meth Scrn Cancelled MDMA (Ecstasy) Screen Cancelled U Benzodiazepines Scrn Cancelled Ur Cocaine Metabolite Cancelled U Marijuana (THC) Screen Cancelled Ethyl Alcohol mg/dL SARS-CoV-2, RNA, NAAT NEGATIVE (NEGATIVE) 08/09/22 08/09/22 08/09/22 Range/Units 09:19 09:13 09:13 WBC 6.37 (4.8-10.8) K/ul RBC 4.39 L (4.63-6.08) M/uL Hgb 15.5 (14.0-18.0) g/dl POC Hgb (14.0-18.0) g/dl Hct 43.4 (40.1-51.0) % POC Hct (42-52) % MCV 98.9 (80.0-100.0) fL MCH 35.3 H (25.0-34.0) pg MCHC 35.7 (32.0-36.0) g/dL RDW Std Deviation 65.7 H (36.4-46.3) fL RDW Coeff of Marilyn 18.3 H (11.5-14.5) % Plt Count 50 L (130-400) K/uL MPV 11.2 (9.4-12.4) fL Immature Gran % (Auto) 0.6 % Neut % (Auto) 72.8 % Lymph % (Auto) 12.9 % Preston % (Auto) 12.2 % Eos % (Auto) 0.9 % Baso % (Auto) 0.6 % Neut # (Auto) 4.63 (1.4-6.5) K/uL Lymph # (Auto) 0.82 L (1.2-3.4) K/uL Preston # (Auto) 0.78 (0.24-0.82) K/uL Eos # (Auto) 0.06 (0-0.50) K/uL Baso # (Auto) 0.04 (0-0.2) K/uL Immature Gran # (Auto) 0.04 H (0.00-0.02) K/uL PT (9.0-12.0) Seconds INR (0.9-1.1) POC Sodium (135-144) mmol/L Sodium 133 L (136-145) mmol/L POC Potassium (3.3-5.0) mmol/L Potassium 3.5 (3.5-5.1) mmol/L POC Chloride (101-112) mmol/L Chloride 99 (98-107) mmol/L Carbon Dioxide 28 (21-32) mmol/L POC Total CO2 (24-31) mmol/L Anion Gap 6 (3-11) POC Anion Gap (16-25) mmol/L POC BUN (7-18) mg/dl BUN 8 (6-23) mg/dl Creatinine TNP POC Creatinine (0.6-1.3) mg/dl Est Cr Clr Drug Dosing Not Reportable Est GFR ( Amer) Not Reportable Est GFR (Non-Af Amer) Not Reportable BUN/Creatinine Ratio TNP Glucose 105 H (70-99(Fasting)) mg/dl POC Glucose (other) (70-99) mg/dl Calcium 8.3 L (8.5-10.1) mg/dl POC Ioniz Calcium Bennett (1.12-1.32) mmol/l Total Bilirubin 23.5 H (0.2-1.0) mg/dl AST 149 H (13-39) U/L ALT 69 H (7-52) U/L Alkaline Phosphatase 182 H (34-104) U/L Total Protein 7.0 (6.0-8.3) gm/dl Albumin 3.1 L (3.4-5.0) gm/dl Globulin 3.9 (2.5-4.0) gm/dl Albumin/Globulin Ratio 0.8 L (0.9-2) Lipase TNP Urine Color Dark Yellow Urine Appearance Clear (Clear) Urine pH 7.0 (4.5-7.5) Ur Specific Lutts 1.013 (1.000-1.030) Urine Protein Negative (Negative) Urine Glucose (UA) Negative (Negative) Urine Ketones Trace H (Negative) Urine Blood Negative (Negative) Urine Nitrite Positive A (Negative) Urine Bilirubin 3+ H (Negative) Urine Urobilinogen Positive H (Negative) Ur Leukocyte Esterase Negative (Negative) Urine WBC (Auto) 0 (0-5) /hpf Urine RBC (Auto) 0-4 (0-4) /hpf U Hyaline Cast (Auto) 1-5 (0-5) /lpf U Epithel Cells (Auto) 0-5 (0-5) /lpf Urine Bacteria (Auto) Negative (Negative) Urine Opiates Screen Ur Methadone, Qual Urine Barbiturates Ur Phencyclidine (PCP) U Amphetamin/Meth Scrn MDMA (Ecstasy) Screen U Benzodiazepines Scrn Ur Cocaine Metabolite U Marijuana (THC) Screen Ethyl Alcohol mg/dL SARS-CoV-2, RNA, NAAT (NEGATIVE) Diagnostic Findings ABDOMEN AND PELVIS CT WITH IV CONTRAST CT DOSE: 703.51 mGy.cm HISTORY: Acute abdominal pain with jaundice Jaundice TECHNIQUE: Multiaxial CT images of the abdomen and pelvis were performed following the IV administration of 87 cc of Optiray, A dose lowering technique was utilized adhering to the principles of ALARA. COMPARISON STUDY: Liver MRI 09/28/2017, CT 09/29/2017 FINDINGS: Clear lung bases. No pneumatosis or pneumoperitoneum. The spleen is enlarged, 14.2 cm in length. Unremarkable pancreas and adrenal glands. Mild gallbladder distention with gallbladder wall thickening and cholelithiasis. Mild pericholecystic inflammation. No biliary ductal dilation identified. Portal vein appears patent. Hepatic steatosis with cirrhosis. No hepatic mass identified. Unremarkable kidneys. No renal or ureteral calculi or hydronephrosis. Partial distention of the urinary bladder. Unremarkable prostate. Aorta and IVC are unremarkable. Borderline enlarged retroperitoneal lymph nodes are likely reactive. Upper abdominal varicosities. No bowel obstruction or bowel wall thickening. Normal appendix. Tiny fat and fluid filled umbilical hernia. Unremarkable soft tissues. Degenerative changes of the spine, pelvis and hips. No destructive bone lesions identified. IMPRESSION: 1. Cholelithiasis with mild gallbladder distention, wall thickening and pericholecystic stranding. Correlate clinically to exclude acute cholecystitis. 2. Hepatic steatosis with cirrhosis, abdominal varicosities and splenomegaly compatible with portal venous hypertension. 3. No bowel obstruction or bowel wall thickening. 4. Normal appendix. MRCP CLINICAL HISTORY: transaminitis, ? choledocholithiasis TECHNIQUE: Utilizing a 1.5 Nohemy magnet and dedicated coil, multiplanar, multiecho imaging of the upper abdomen was performed utilizing heavily T2 weighted pulsing sequences without IV contrast. COMPARISON STUDY: CT of the abdomen and pelvis performed earlier today. MRI of the abdomen September 30, 2017. FINDINGS: The liver is cirrhotic. No hepatic lesions are identified on this unenhanced exam. No intra or extra hepatic biliary ductal dilatation is identified. No common bile duct calculi are identified although sensitivity for detection of small calculi is diminished given motion artifact on this exam. There is no pancreatic ductal dilatation. Gallbladder is mildly distended. There is a gallstone within the gallbladder. Gallbladder wall thickening is noted. Trace perihepatic ascites is present. Mild splenomegaly is noted. Hypointense foci within the spleen are likely related to portal hypertension. Large upper abdominal varices are noted. Unenhanced images of the adrenal glands, kidneys and pancreas are unremarkable. Possible pancreas divisum. IMPRESSION: 1. No biliary ductal dilatation. No common bile duct calculi identified although sensitivity for detection of small calculi diminished on this exam. 2. Cirrhosis. Splenomegaly, trace abdominal ascites and large upper abdominal varices indicative of portal hypertension. 3. Cholelithiasis with gallbladder distention and nonspecific gallbladder wall thickening. If indicated, a hepatobiliary scan could be obtained to exclude acute cholecystitis.
[2022-08-09 15:35] LABS: INR 1.7 (0.9-1.1); Prothrombin Time 17.7 Seconds (9.0-12.0)
--- NOTE | 2022-08-09 15:55 | Emergency Department Note ---
History of Present Illness General Chief complaint: Illness Stated complaint: SICK FOR 5 DAYS,REDDISH YELLOW EYES AND SKIN Time Seen by Provider: 08/09/22 08:37 History of Present Illness 36-year-old male who presents to the emergency department with complaint of weakness and yellow skin. The patient reports that he has been weak now for several days, and noticed yellowing that started yesterday. He does report a prior history of alcoholic hepatitis and cirrhosis with ascites. This was 4 years ago when he abused alcohol. The patient reports that he has been clean since that time. The patient has previously followed with [facility] gastroenterology. He denies any illicit drug use. The patient denies any prior history of abdominal surgeries. He currently denies any significant discomfort, nausea, urinary symptoms or change in stool color/consistency. Home Medications Medication Instructions Recorded Confirmed Type No Known Home Medications 08/09/22 08/09/22 History Allergies Allergy/AdvReac Type Severity Reaction Status Date / Time acetaminophen Allergy Intermediate ELEVATED Verified 08/09/22 10:36 FEVER amoxicillin Allergy Intermediate UNKNOWN Verified 08/09/22 10:36 Penicillins Allergy Intermediate UNKNOWN Verified 08/09/22 10:36 Past Med/Surg History Medical History Alcoholic hepatitis Ascites Esophageal varices History of deep venous thrombosis Liver cirrhosis SBP (spontaneous bacterial peritonitis) Surgical History No significant past surgical history Family History Grandmother (Maternal) Colorectal cancer Mother Stroke Social History Smoking Status: Current every day smoker Tobacco Type: Cigarettes Hx Alcohol Use: No (prior heavy ETOH use w/ cirrhosis) Hx Substance Use: No Feels Safe at Home: Yes Review of Systems 10 system review was performed and was negative except for pertinent positives and negatives as indicated in history of present illness Physical Exam Vital Signs Vital Signs - 24 hr 08/09/22 08:32 08/09/22 09:31 08/09/22 12:02 Temperature 37.2 C Temperature Source Temporal Artery Scan Pulse Rate 119 H Pulse Rate [Finger] 88 96 H Respiratory Rate 18 16 20 Respiratory Effort / Characteristics Non-Labored Spontaneous Respiratory Depth Normal Respiratory Pattern Regular Blood Pressure 136/81 Blood Pressure [Left Arm] 130/76 132/80 Blood Pressure Mean 99 Blood Pressure Mean [Left Arm] 94 97 Blood Pressure Position Sitting Pulse Oximetry 96 97 97 Oxygen Delivery Method Room Air Room Air Sepsis Recent Fever Within 48 Hours No Sepsis New/Unexplained Change in Mental Status N/A Sepsis Action Taken by Nursing No Action Required 08/09/22 14:58 Temperature Temperature Source Pulse Rate Pulse Rate [Finger] 101 H Respiratory Rate 20 Respiratory Effort / Characteristics Respiratory Depth Respiratory Pattern Blood Pressure Blood Pressure [Left Arm] 137/73 Blood Pressure Mean Blood Pressure Mean [Left Arm] 94 Blood Pressure Position Pulse Oximetry 95 Oxygen Delivery Method Room Air Sepsis Recent Fever Within 48 Hours Sepsis New/Unexplained Change in Mental Status Sepsis Action Taken by Nursing CONSTITUTIONAL: Healthy and well nourished. Alert and oriented X 3. Patient does not appear in any acute distress. HEENT: Normocephalic, atraumatic. Pupils equal, round and reactive. Patient has scleral icterus. No obvious conjunctival injection or pallor. NECK: Full active range of motion without discomfort. No JVD or carotid bruits. LYMPHATICS: No cervical chain adenopathy. RESPIRATORY: Clear to auscultation bilaterally with no wheezing, crackles, rhonchi or stridor. CARDIOVASCULAR: Regular rate and rhythm with no murmurs, rubs or gallops. GASTROINTESTINAL: Bowel sounds present in all quadrants. Patient has minimal right upper quadrant tenderness to palpation with negative Mitchell sign. Negative CVA tenderness. Negative McBurney's point tenderness. No abdominal rigidity, guarding or rebound. MUSCULOSKELETAL: Full range of motion of all joints without discomfort. INTEGUMENTARY: No rash or other significant dermatologic conditions noted. HEMATOLOGIC: No ecchymosis or petechiae. PSYCHIATRIC: Positive affect. NEUROLOGIC: No focal neurologic deficits noted. Course Course Patient history and physical exam were performed. Nurses notes were reviewed. Vital signs were reviewed, showing a tachycardia. The patient is afebrile. IV access was established, and labs were drawn. The patient was hydrated with a liter normal saline. Review of labs does not show any concerning leukocytosis or left shift. CMP shows an elevated PT and INR. Patient is hyponatremic with a sodium of 133. Creatinine could not initially be evaluated because of bacteria. Patient has an elevated total bilirubin of 23.5, as well as elevated LFTs and alkaline phosphatase. Urinalysis shows trace ketonuria, positive nitrites, 3+ bilirubin and positive urobilinogen. COVID-[address] with IV contrast of the abdomen and pelvis shows a pericholecystic stranding with cholelithiasis and mild gallbladder distention. No biliary ductal dilatation is noted on CT imaging. Findings were discussed with the patient. I also discussed the case with Dr. Corona, ED attending physician, who recommended discussing the case further with general surgery. The case was further discussed with Dr. Ward, general surgeon on-call, who has requested hospitalist evaluation and GI consultation. They will evaluate the patient as time allows with their busy surgery scheduled. The information was relayed to the patient, who was in agreement with this plan. The case was then further discussed with the [facility] hospitalist service. Please see her dictation, as well as GI and general surgery dictations for further treatment and final disposition. COVID-19 test was ordered and was negative. Administered Medications Discontinued Medications Sodium Chloride (Nss 1000ml) 1,000 mls @ 999 mls/hr IV .[id number] STA Stop: 08/09/22 10:01 Last Infusion: 08/09/22 10: Dose: 0 mls/hr Documented By: Admin: 08/09/22 09:29 Dose: 999 mls/hr Documented By: ADELA Ioversol (Optiray 350 100ml) 87 ml IV ONCE ONE Stop: 08/09/22 10:41 Last Admin: 08/09/22 10:34 Dose: 87 ml Documented By: MARIZOL Medical Decision Making Medical Records Attestation: I reviewed the patient's medical records. Home Medications Current Medication List: was personally reviewed by me Laboratory Data Attestation: I reviewed the patient's lab results. Result diagrams: 08/09/22 09:13 08/09/22 09:13 Lab Results 08/09/22 08/09/22 08/09/22 Range/Units 09:13 09:13 09:19 WBC 6.37 (4.8-10.8) K/ul RBC 4.39 L (4.63-6.08) M/uL Hgb 15.5 (14.0-18.0) g/dl POC Hgb (14.0-18.0) g/dl Hct 43.4 (40.1-51.0) % POC Hct (42-52) % MCV 98.9 (80.0-100.0) fL MCH 35.3 H (25.0-34.0) pg MCHC 35.7 (32.0-36.0) g/dL RDW Std Deviation 65.7 H (36.4-46.3) fL RDW Coeff of Marilyn 18.3 H (11.5-14.5) % Plt Count 50 L (130-400) K/uL MPV 11.2 (9.4-12.4) fL Immature Gran % (Auto) 0.6 % Neut % (Auto) 72.8 % Lymph % (Auto) 12.9 % [place] % (Auto) 12.2 % Eos % (Auto) 0.9 % Baso % (Auto) 0.6 % Neut # (Auto) 4.63 (1.4-6.5) K/uL Lymph # (Auto) 0.82 L (1.2-3.4) K/uL [place] # (Auto) 0.78 (0.24-0.82) K/uL Eos # (Auto) 0.06 (0-0.50) K/uL Baso # (Auto) 0.04 (0-0.2) K/uL Immature Gran # (Auto) 0.04 H (0.00-0.02) K/uL PT (9.0-12.0) Seconds INR (0.9-1.1) POC Sodium (135-144) mmol/L Sodium 133 L (136-145) mmol/L POC Potassium (3.3-5.0) mmol/L Potassium 3.5 (3.5-5.1) mmol/L POC Chloride (101-112) mmol/L Chloride 99 (98-107) mmol/L Carbon Dioxide 28 (21-32) mmol/L POC Total CO2 (24-31) mmol/L Anion Gap 6 (3-11) POC Anion Gap (16-25) mmol/L POC BUN (7-18) mg/dl BUN 8 (6-23) mg/dl Creatinine TNP POC Creatinine (0.6-1.3) mg/dl Est Cr Clr Drug Dosing Not Reportable Est GFR ( Amer) Not Reportable Est GFR (Non-Af Amer) Not Reportable BUN/Creatinine Ratio TNP Glucose 105 H (70-99(Fasting)) mg/dl POC Glucose (other) (70-99) mg/dl Calcium 8.3 L (8.5-10.1) mg/dl POC Ioniz Calcium Bennett (1.12-1.32) mmol/l Total Bilirubin 23.5 H (0.2-1.0) mg/dl AST 149 H (13-39) U/L ALT 69 H (7-52) U/L Alkaline Phosphatase 182 H (34-104) U/L Total Protein 7.0 (6.0-8.3) gm/dl Albumin 3.1 L (3.4-5.0) gm/dl Globulin 3.9 (2.5-4.0) gm/dl Albumin/Globulin Ratio 0.8 L (0.9-2) Lipase TNP Urine Color Dark Yellow Urine Appearance Clear (Clear) Urine pH 7.0 (4.5-7.5) Ur Specific [place] 1.013 (1.000-1.030) Urine Protein Negative (Negative) Urine Glucose (UA) Negative (Negative) Urine Ketones Trace H (Negative) Urine Blood Negative (Negative) Urine Nitrite Positive A (Negative) Urine Bilirubin 3+ H (Negative) Urine Urobilinogen Positive H (Negative) Ur Leukocyte Esterase Negative (Negative) Urine WBC (Auto) 0 (0-5) /hpf Urine RBC (Auto) 0-4 (0-4) /hpf U Hyaline Cast (Auto) 1-5 (0-5) /lpf U Epithel Cells (Auto) 0-5 (0-5) /lpf Urine Bacteria (Auto) Negative (Negative) Urine Opiates Screen Ur Methadone, Qual Urine Barbiturates Ur Phencyclidine (PCP) U Amphetamin/Meth Scrn MDMA (Ecstasy) Screen U Benzodiazepines Scrn Ur Cocaine Metabolite U Marijuana (THC) Screen SARS-CoV-2, RNA, NAAT (NEGATIVE) 08/09/22 08/09/22 08/09/22 Range/Units 09:19 10:20 11:50 WBC (4.8-10.8) K/ul RBC (4.63-6.08) M/uL Hgb (14.0-18.0) g/dl POC Hgb 15.0 (14.0-18.0) g/dl Hct (40.1-51.0) % POC Hct 44 (42-52) % MCV (80.0-100.0) fL MCH (25.0-34.0) pg MCHC (32.0-36.0) g/dL RDW Std Deviation (36.4-46.3) fL RDW Coeff of Marilyn (11.5-14.5) % Plt Count (130-400) K/uL MPV (9.4-12.4) fL Immature Gran % (Auto) % Neut % (Auto) % Lymph % (Auto) % [place] % (Auto) % Eos % (Auto) % Baso % (Auto) % Neut # (Auto) (1.4-6.5) K/uL Lymph # (Auto) (1.2-3.4) K/uL [place] # (Auto) (0.24-0.82) K/uL Eos # (Auto) (0-0.50) K/uL Baso # (Auto) (0-0.2) K/uL Immature Gran # (Auto) (0.00-0.02) K/uL PT (9.0-12.0) Seconds INR (0.9-1.1) POC Sodium 136 (135-144) mmol/L Sodium (136-145) mmol/L POC Potassium 3.4 (3.3-5.0) mmol/L Potassium (3.5-5.1) mmol/L POC Chloride 98 L (101-112) mmol/L Chloride (98-107) mmol/L Carbon Dioxide (21-32) mmol/L POC Total CO2 26 (24-31) mmol/L Anion Gap (3-11) POC Anion Gap 17.0 (16-25) mmol/L POC BUN 7 (7-18) mg/dl BUN (6-23) mg/dl Creatinine POC Creatinine 1.0 (0.6-1.3) mg/dl Est Cr Clr Drug Dosing Est GFR ( Amer) Est GFR (Non-Af Amer) BUN/Creatinine Ratio Glucose (70-99(Fasting)) mg/dl POC Glucose (other) 98 (70-99) mg/dl Calcium (8.5-10.1) mg/dl POC Ioniz Calcium Bennett 1.06 L (1.12-1.32) mmol/l Total Bilirubin (0.2-1.0) mg/dl AST (13-39) U/L ALT (7-52) U/L Alkaline Phosphatase (34-104) U/L Total Protein (6.0-8.3) gm/dl Albumin (3.4-5.0) gm/dl Globulin (2.5-4.0) gm/dl Albumin/Globulin Ratio (0.9-2) Lipase Urine Color Urine Appearance (Clear) Urine pH (4.5-7.5) Ur Specific [place] (1.000-1.030) Urine Protein (Negative) Urine Glucose (UA) (Negative) Urine Ketones (Negative) Urine Blood (Negative) Urine Nitrite (Negative) Urine Bilirubin (Negative) Urine Urobilinogen (Negative) Ur Leukocyte Esterase (Negative) Urine WBC (Auto) (0-5) /hpf Urine RBC (Auto) (0-4) /hpf U Hyaline Cast (Auto) (0-5) /lpf U Epithel Cells (Auto) (0-5) /lpf Urine Bacteria (Auto) (Negative) Urine Opiates Screen Cancelled Ur Methadone, Qual Cancelled Urine Barbiturates Cancelled Ur Phencyclidine (PCP) Cancelled U Amphetamin/Meth Scrn Cancelled MDMA (Ecstasy) Screen Cancelled U Benzodiazepines Scrn Cancelled Ur Cocaine Metabolite Cancelled U Marijuana (THC) Screen Cancelled SARS-CoV-2, RNA, NAAT NEGATIVE (NEGATIVE) 08/09/22 Range/Units 14:54 WBC (4.8-10.8) K/ul RBC (4.63-6.08) M/uL Hgb (14.0-18.0) g/dl POC Hgb (14.0-18.0) g/dl Hct (40.1-51.0) % POC Hct (42-52) % MCV (80.0-100.0) fL MCH (25.0-34.0) pg MCHC (32.0-36.0) g/dL RDW Std Deviation (36.4-46.3) fL RDW Coeff of Marilyn (11.5-14.5) % Plt Count (130-400) K/uL MPV (9.4-12.4) fL Immature Gran % (Auto) % Neut % (Auto) % Lymph % (Auto) % [place] % (Auto) % Eos % (Auto) % Baso % (Auto) % Neut # (Auto) (1.4-6.5) K/uL Lymph # (Auto) (1.2-3.4) K/uL [place] # (Auto) (0.24-0.82) K/uL Eos # (Auto) (0-0.50) K/uL Baso # (Auto) (0-0.2) K/uL Immature Gran # (Auto) (0.00-0.02) K/uL PT 17.7 H (9.0-12.0) Seconds INR 1.7 H (0.9-1.1) POC Sodium (135-144) mmol/L Sodium (136-145) mmol/L POC Potassium (3.3-5.0) mmol/L Potassium (3.5-5.1) mmol/L POC Chloride (101-112) mmol/L Chloride (98-107) mmol/L Carbon Dioxide (21-32) mmol/L POC Total CO2 (24-31) mmol/L Anion Gap (3-11) POC Anion Gap (16-25) mmol/L POC BUN (7-18) mg/dl BUN (6-23) mg/dl Creatinine POC Creatinine (0.6-1.3) mg/dl Est Cr Clr Drug Dosing Est GFR ( Amer) Est GFR (Non-Af Amer) BUN/Creatinine Ratio Glucose (70-99(Fasting)) mg/dl POC Glucose (other) (70-99) mg/dl Calcium (8.5-10.1) mg/dl POC Ioniz Calcium Bennett (1.12-1.32) mmol/l Total Bilirubin (0.2-1.0) mg/dl AST (13-39) U/L ALT (7-52) U/L Alkaline Phosphatase (34-104) U/L Total Protein (6.0-8.3) gm/dl Albumin (3.4-5.0) gm/dl Globulin (2.5-4.0) gm/dl Albumin/Globulin Ratio (0.9-2) Lipase Urine Color Urine Appearance (Clear) Urine pH (4.5-7.5) Ur Specific [place] (1.000-1.030) Urine Protein (Negative) Urine Glucose (UA) (Negative) Urine Ketones (Negative) Urine Blood (Negative) Urine Nitrite (Negative) Urine Bilirubin (Negative) Urine Urobilinogen (Negative) Ur Leukocyte Esterase (Negative) Urine WBC (Auto) (0-5) /hpf Urine RBC (Auto) (0-4) /hpf U Hyaline Cast (Auto) (0-5) /lpf U Epithel Cells (Auto) (0-5) /lpf Urine Bacteria (Auto) (Negative) Urine Opiates Screen Ur Methadone, Qual Urine Barbiturates Ur Phencyclidine (PCP) U Amphetamin/Meth Scrn MDMA (Ecstasy) Screen U Benzodiazepines Scrn Ur Cocaine Metabolite U Marijuana (THC) Screen SARS-CoV-2, RNA, NAAT (NEGATIVE) Imaging Data Attestation: I personally reviewed and interpreted this imaging study as follows: My Impression: My interpretation of a CT with IV contrast of the abdomen and pelvis shows gallbladder edema with cholelithiasis, and pericholecystic stranding, concerning for acute cholecystitis. No additional acute intra-abdominal findings are noted. Radiologist report was also reviewed. Radiologist's Impression: Abdomen/Pelvis CT 08/09/22 09:[address] WITH IV CONTRAST CT DOSE: 703.51 mGy.cm HISTORY: Acute abdominal pain with jaundice Jaundice TECHNIQUE: Multiaxial CT images of the abdomen and pelvis were performed following the IV administration of 87 cc of Optiray, A dose lowering technique was utilized adhering to the principles of ALARA. COMPARISON STUDY: Liver MRI 09/28/2017, CT 09/29/2017 FINDINGS: Clear lung bases. No pneumatosis or pneumoperitoneum. The spleen is enlarged, 14.2 cm in length. Unremarkable pancreas and adrenal glands. Mild gallbladder distention with gallbladder wall thickening and cholelithiasis. Mild pericholecystic inflammation. No biliary ductal dilation identified. Portal vein appears patent. Hepatic steatosis with cirrhosis. No hepatic mass identified. Unremarkable kidneys. No renal or ureteral calculi or hydronephrosis. Partial distention of the urinary bladder. Unremarkable prostate. Aorta and IVC are unremarkable. Borderline enlarged retroperitoneal lymph nodes are likely reactive. Upper abdominal varicosities. No bowel obstruction or bowel wall thickening. Normal appendix. Tiny fat and fluid filled umbilical hernia. Unremarkable soft tissues. Degenerative changes of the spine, pelvis and hips. No destructive bone lesions identified. IMPRESSION: 1. Cholelithiasis with mild gallbladder distention, wall thickening and pericholecystic stranding. Correlate clinically to exclude acute cholecystitis. 2. Hepatic steatosis with cirrhosis, abdominal varicosities and splenomegaly compatible with portal venous hypertension. 3. No bowel obstruction or bowel wall thickening. 4. Normal appendix. ACT 112: Negative or not required by law. The above report was generated using voice recognition software. It may contain grammatical, syntax or spelling errors. Electronically signed by: Almas Thomas M.D. 08/09/2022 11:16 AM Cholangiopancreatography MRI 08/09/22 13:30 MRCP CLINICAL HISTORY: transaminitis, ? choledocholithiasis TECHNIQUE: Utilizing a 1.5 Nohemy magnet and dedicated coil, multiplanar, multiecho imaging of the upper abdomen was performed utilizing heavily T2 weighted pulsing sequences without IV contrast. COMPARISON STUDY: CT of the abdomen and pelvis performed earlier today. MRI of the abdomen September 30, 2017. FINDINGS: The liver is cirrhotic. No hepatic lesions are identified on this unenhanced exam. No intra or extra hepatic biliary ductal dilatation is identified. No common bile duct calculi are identified although sensitivity for detection of small calculi is diminished given motion artifact on this exam. There is no pancreatic ductal dilatation. Gallbladder is mildly distended. There is a gallstone within the gallbladder. Gallbladder wall thickening is noted. Trace perihepatic ascites is present. Mild splenomegaly is noted. Hypointense foci within the spleen are likely related to portal hypertension. Large upper abdominal varices are noted. Unenhanced images of the adrenal glands, kidneys and pancreas are unremarkable. Possible pancreas divisum. IMPRESSION: 1. No biliary ductal dilatation. No common bile duct calculi identified although sensitivity for detection of small calculi diminished on this exam. 2. Cirrhosis. Splenomegaly, trace abdominal ascites and large upper abdominal varices indicative of portal hypertension. 3. Cholelithiasis with gallbladder distention and nonspecific gallbladder wall thickening. If indicated, a hepatobiliary scan could be obtained to exclude acute cholecystitis. ACT 112: Negative or not required by law. Electronically signed by: Josue Peña M.D. 08/09/2022 3:19 PM Orbit X-Ray 08/09/22 13:48 [facility] 3 VIEWS HISTORY: pre-MRI screening. COMPARISON: None. FINDINGS: There are no radiopaque foreign bodies identified within the orbits. A lip piercing is noted. IMPRESSION: No radiopaque foreign bodies identified within the orbits. ACT 112: Negative or not required by law. Electronically signed by: Josue Peña M.D. 08/09/2022 2:10 PM Blood Pressure Blood Pressure Findings: Normal blood pressure MDM Narrative 36-year-old male who presents to the emergency department with a complaint of not feeling well and jaundice. Patient does have a known history of alcoholic hepatitis and cirrhosis with prior ascites. CT imaging today is concerning for possible acute cholecystitis. The patient does have laboratory studies that could also indicate the possibility of a common bile duct obstruction (choledocholithiasis). The patient will require an additional GI and surgical consultation. At this point, the patient is afebrile and has no leukocytosis to suggest overwhelming infection. Impression & Plan Acute cholecystitis, Transaminitis, Jaundice, Serum total bilirubin elevated Discharge Plan Visit Data Chief Complaint: Illness Stated Complaint: SICK FOR 5 DAYS,REDDISH YELLOW EYES AND SKIN ED Provider: Ambrose Corona ED Midlevel Provider: Kwame Pruitt Discharge Problem: Acute cholecystitis, Transaminitis, Jaundice, Serum total bilirubin elevated Forms Stand Alone Forms: [employer] Prescriptions Prescriptions: No Action No Known Home Medications Referrals Referrals: PCP,NO [Primary Care Provider] -
--- NOTE | 2022-08-09 16:02 | Gastrointestinal Consultation ---
Date of Consultation August 09, 2022 Assessment & Plan (1) Jaundice: (2) Serum total bilirubin elevated: (3) Liver cirrhosis: Plan Painless jaundice in a 36 yr old male w hx of cirrhosis w varices. He does not have significant ascites or peripheral edema. He denies any GI bleeding and Hb is 15. He admits to some alcohol intake a few weeks ago, so most likely this represents alcoholic hepatitis. However, decompensated cirrhosis from infection is also considered. - reviewed OP records and hasn't been tested for some causes of cirrhosis. Sent off testing to r/o alpha -1 antitrypsin deficiency, Talib's, autoimmune hepatitis, Hemochromatosis and viral hepatitis. - Recommend blood and urine Cx; CXR. - Will watch for alcohol level. - DF is high at 29. If no evidence of infection then recommend prednisolone 40mg daily. Would re-eval for continuation at day 7. - No plans for GI procedure at this time, so OK for a low salt diet. Supervising Physician Co-Signing Physician Notes Attending attestation I have seen, examined this patient, and agree with the findings and above by our mid-level provider DORIS Munoz, with the following additions: Late entry examined on this date Concern for viral, progressive disease, or alcohol induced disease Serologies Supportive care R/O infection with blood and urine cx History of Present Illness Reason for Consultation: Tranasaminitis, ? choledocholothiasis Requesting Physician: Sharon Chamberlain NP; Dr. Alegre Attending Physician: Dr. Alegre History of Present Illness Mr. Braxton Roe is a 36 yr old male pt of Dr. Limon w a hx of ETOH cirrhosis, EV followed in GI clinic until he was lost to f/u in 2019. He presented to the ED today because he noticed that he yellow eyes and skin. He was also very tired yesterday, but otherwise, denies any symptoms of illness: no fever/chills/sweats/sore throat and no abdominal pain. No recent weight loss. Initially, he told us that he hasn't drank any alcohol for years, but later reports having drank some a few weeks ago but denies any high amounts. On arrival, he is jaundiced. His LFTs are markedly elevated: T Bili 23.5, AST 149, ALT 69, Alk Phos 182. INR is 1.7. He is mildly tachycardic w HR 110. Allergies Allergy/AdvReac Type Severity Reaction Status Date / Time acetaminophen Allergy Intermediate ELEVATED Verified 08/09/22 10:36 FEVER amoxicillin Allergy Intermediate UNKNOWN Verified 08/09/22 10:36 Penicillins Allergy Intermediate UNKNOWN Verified 08/09/22 10:36 Home Medications Medication Instructions Recorded Confirmed Type No Known Home Medications 08/09/22 08/09/22 History Patient History Medical History Alcoholic hepatitis Ascites Esophageal varices History of deep venous thrombosis Liver cirrhosis SBP (spontaneous bacterial peritonitis) Surgical History No significant past surgical history Family History Grandmother (Maternal) Colorectal cancer Mother Stroke Social History Smoking Status: Current every day smoker Tobacco Type: Cigarettes Do You Dip or Chew Tobacco: No; Tobacco Cessation Education Requested by Patient: No Hx Alcohol Use: Yes Alcohol type: beer Hx Substance Use: No Preferred Language: [place] Communication Ability: Effective Communication Ability Comment: verbal Hide Puller Required: No Beliefs That Will Affect Care: None Current Living Situation: Family Other Information That Helps Us Care for You: No Feels Safe at Home: Yes Safety Concerns: Feels Safe At This Time Assistive Devices: None Review of Systems Review of Systems: ROS: Gen:+ fatigue; Denies weakness, fevers, weight loss Eyes: No eye redness, or pain, no recent vision changes Resp: No SOB, no cough Cardio: No palpitations/irregular beats, no chest pain GI: No abdominal pain, no nausea/vomiting : Denies pain on urination Skin: + jaundice No c/o itching; no new rashes A total of 12 systems were reviewed, all others (-) Physical Exam Constitutional: WD/WN, vitals as above Eyes: + scleral abnormality (icterus) and PERRL ENMT: external ear and nose normal, oropharynx normal Neck: trachea midline, no thyromegaly Respiratory: normal respiratory effort, lungs clear to auscultation Cardiovascular: Rate/Rhythm: regular rhythm and + tachycardic (mildly) no murmurs Gastrointestinal (Abdomen): normal bowel sounds, soft, nontender, no hepatosplenomegaly Skin: + jaundice; no rashes; few spider angioma on the chest. Neurologic: Fine tremor noted in hands, no asterix Psychiatric: A+Ox3, euthymic affect Lymphatic: no cervical or axillary lymphadenopathy Results & Data ([facility]) Vital Signs (Past 12 Hours) Vital Signs Temp Pulse Pulse Resp BP BP Pulse Ox 08/09/22 14:58 101 H 20 137/73 95 08/09/22 12:02 96 H 20 132/80 97 08/09/22 09:31 88 16 130/76 97 08/09/22 08:32 37.2 C 119 H 18 136/81 96 O2 Del Method 08/09/22 14:58 Room Air 08/09/22 12:02 Room Air 08/09/22 09:31 08/09/22 08:32 Room Air Laboratory Results WBC 6.3, Hb 15, Hct 42, Plts 50, PT 17.7, INR 1.7, Na 136, K 3.4, Cl 98, CO2 26, BUN 8, Cr 1.0. See HPI for LFTs. Alcohol level is pending Diagnostic Findings MRCP 08/09/22: 1. No biliary ductal dilatation. No common bile duct calculi identified although sensitivity for detection of small calculi diminished on this exam. 2. Cirrhosis. Splenomegaly, trace abdominal ascites and large upper abdominal varices indicative of portal hypertension. 3. Cholelithiasis with gallbladder distention and nonspecific gallbladder wall thickening. If indicated, a hepatobiliary scan could be obtained to exclude acute cholecystitis. CTAP 08/09/22: 1. Cholelithiasis with mild gallbladder distention, wall thickening and pericholecystic stranding. Correlate clinically to exclude acute cholecystitis. 2. Hepatic steatosis with cirrhosis, abdominal varicosities and splenomegaly compatible with portal venous hypertension. 3. No bowel obstruction or bowel wall thickening. 4. Normal appendix.
[2022-08-09] MEDS ORDERED: SODIUM CHLORIDE 0.9% 1000ML 1,000 ML IV SCH (16:12)
[2022-08-09] MEDS ORDERED: LACTATED RINGER'S 1,000 ML IV SCH (16:30)
[2022-08-09 17:27] LABS: Amphetamines+Metham, Urine Neg (Neg); Barbiturates, Urine Neg (Neg); Benzodiazepine, Urine Neg (Neg); Cocaine, Urine Neg (Neg); MDMA (Ecstacy), Urine Neg (Neg); Methadone, Urine Neg (Neg); Opiate, Urine Neg (Neg); Phencyclidine, Urine Neg (Neg)
[2022-08-09] MEDS: FOLIC ACID 1 MG TAB PO SCH (20:41)
[2022-08-09] MEDS: THIAMINE HCL 100 MG TAB PO SCH (20:41)
[2022-08-09] MEDS: PIPERACILLIN/TAZOBACTAM 3.375 GM in DEXTROSE 5% 100 ML IV SCH (23:59)
[2022-08-10] MEDS: THIAMINE HCL 100 MG TAB PO SCH (08:27)
[2022-08-10] MEDS: FOLIC ACID 1 MG TAB PO SCH (08:27)
[2022-08-10 09:58] LABS: Hematocrit (blood only) 40.3 % (40.1-51.0); Hemoglobin 14.2 g/dl (14.0-18.0); Mean Corpuscular Hemoglobin 35.3 pg (25.0-34.0); Mean Corpuscular Hgb Conc 35.2 g/dL (32.0-36.0); Mean Corpuscular Volume 100.2 fL (80.0-100.0); Platelet Count 50 K/uL (130-400); RDW Standard Deviation 69.7 fL (36.4-46.3); Red Blood Count 4.02 M/uL (4.63-6.08); White Blood Count 4.52 K/ul (4.8-10.8)
[2022-08-10 10:14] LABS: Albumin Globulin Ratio 0.8 (0.9-2); Albumin Level 2.7 gm/dl (3.4-5.0); BUN Creatinine Ratio 7.5 (10-20); Bilirubin,Total 21.1 mg/dl (0.2-1.0); Calcium 7.8 mg/dl (8.5-10.1); Creatinine Clr Calc Pharmacy 115.6 ml/min; Est GFR (Non-African American) 88.8 ml/min; Globulin 3.4 gm/dl (2.5-4.0); Magnesium 2.2 mg/dl (1.7-2.4); Phosphorus 2.4 mg/dl (2.5-4.9); Potassium 3.6 mmol/L (3.5-5.1); Total Protein 6.1 gm/dl (6.0-8.3)
--- NOTE | 2022-08-10 11:13 | Gastroenterology Progress Note ---
Date of Service August 10, 2022 Assessment & Plan (1) Jaundice: (2) Serum total bilirubin elevated: (3) Liver cirrhosis: Plan Painless jaundice in a 36 yr old male w hx of cirrhosis w varices. He does not have significant ascites or peripheral edema. He denies any GI bleeding and Hb is 15. He admits to some alcohol intake a few weeks ago, but not recently. However, decompensated cirrhosis from infection is also considered. - reviewed OP records and hasn't been tested for some causes of cirrhosis. Sent off testing to r/o alpha -1 antitrypsin deficiency, Talib's, autoimmune hepatitis, Hemochromatosis and viral hepatitis. - Recommend blood and urine Cx; CXR. - Will watch for alcohol level. - DF is high at 29. But little improvement and data for steroids, given his admission of abstinance, then would hold for now. - No plans for GI procedure at this time, so OK for a low salt diet. - Follow Serologies, d/w Dr. De Guzman and agreeable to see in clinic next week Admission and Anticipated Discharge Date Admission Date: August 09, 2022 Subjective Feels well and is without complaint Review of Systems Review of Systems: All systems reviewed & are unremarkable except as noted in HPI & below Physical Exam Physical Exam: A and O x 3 DENNIS NAD RRR NO MGR CTABL NABS/SOFT/NT/ND No edema Results & Data ([facility]) Vital Signs (Past 12 Hours) Vital Signs Temp Pulse Resp BP Pulse Ox O2 Del Method 08/10/22 07:58 36.6 C 72 18 119/74 95 Room Air Diagnostic Findings [place], [place] [phone] Magnetic Resonance Report Patient:BETSY HANSEN Admit Date:08/09/22 MR#:[id number] Address1:[address] [place] [address] Acct ID:[id number] Address2: Date:1985 [facility] Zip:[place] [address] Age:36 Location:ED Sex:M Room/Bed: Att Phy: Diagnosis:SICK FOR 5 DAYS,REDDISH YELLOW EYES AND SKIN Amy Phy:PCP,NO Service Date:08/09/22 Fam Phy: Interpreting Phy:Josue Peña MDAantonio Phy: Ordering Phy:Sharon Chamberlain cc: ~ MRCP CLINICAL HISTORY: transaminitis, ? choledocholithiasis TECHNIQUE: Utilizing a 1.5 Nohemy magnet and dedicated coil, multiplanar, multiecho imaging of the upper abdomen was performed utilizing heavily T2 weighted pulsing sequences without IV contrast. COMPARISON STUDY: CT of the abdomen and pelvis performed earlier today. MRI of the abdomen September 30, 2017. FINDINGS: The liver is cirrhotic. No hepatic lesions are identified on this unenhanced exam. No intra or extra hepatic biliary ductal dilatation is ident ified. No common bile duct calculi are identified although sensitivity for detection of small calculi is diminished given motion artifact on this exam. There is no pancreatic ductal dilatation. Gallbladder is mildly distended. There is a gallstone within the gallbladder. Gallbladder wall thickening is noted. Trace perihepatic ascites is present. Mild splenomegaly is noted. Hypointense foci within the spleen are likely related to portal hypertension. Large upper abdominal varices are noted. Unenhanced images of the adrenal glands, kidneys and pancreas are unremarkable. Possible pancreas divisum. IMPRESSION: 1. No biliary ductal dilatation. No common bile duct calculi identified although sensitivity for detection of small calculi diminished on this exam. 2. Cirrhosis. Splenomegaly, trace abdominal ascites and large upper abdominal varices indicative of portal hypertension. 3. Cholelithiasis with gallbladder distention and nonspecific gallbladder wall thickening. If indicated, a hepatobiliary scan could be obtained to exclude acute cholecystitis.
[2022-08-10] MEDS: PIPERACILLIN/TAZOBACTAM 3.375 GM in DEXTROSE 5% 100 ML IV SCH (11:38)
--- NOTE | 2022-08-10 11:41 | Hospitalist Progress Note ---
Date of Service August 10, 2022 Assessment & Plan (1) Transaminitis: Plan: - Patient presenting from home with reports of nausea, generalized malaise x 5 days - diffusely jaundiced - labs significant for T bili 23.5, AST 149, ALT 69, alk phos 182 - CT ABD/pelvis showing cholelithiasis with mild gallbladder distention, wall thickening and pericholecystic stranding - MRCP negative for cholecystitis - Surgery does not feel this is cholecystitis - Maddrey DF score elevated - concern for alcoholic hepatitis - slight trend down in LFTs today - patient asymptomatic - empiric abx can likely be discontinued - follow up GI for need for steroids (2) Cholelithiasis: Plan: - noted without cholecystitis (3) Liver cirrhosis: Plan: - History of alcoholic cirrhosis with esophageal varices, ascites, portal hypertensive gastropathy. - Last evaluated 04/2020 and has been lost to follow-up since. - Patient no longer taking daily medications. - CT ABD/pelvis today showing Hepatic steatosis with cirrhosis, abdominal varicosities and splenomegaly compatible with portal venous hypertension. - GI to follow up outpatient - thiamine and folic acid supplements (4) Alcohol use disorder: Plan: - history of alochol use disorder - has significantly cut back but report drinking ~2 weeks prior to admission - advised of further alcohol abstention Plan DVT ppx: SCDs Code Status: Full Code Dispo: Med/surg Nilo Fernandez MD Hospital Medicine Admission and Anticipated Discharge Date Admission Date: August 09, 2022 Subjective Patient with history of alcohol use disorder, reports last drink ~2 weeks ago, ETOH cirrhosis with a history of esophageal varices and ascites presents with several days of worsening jaundice. MRCP without evidence of cholecystitis or choledocholethiasis. Surgery does not feel this is cholecysitis as patient had not pain, fever, n/v. Concern for alcoholic hepatitis vs viral infection. GI consulted and work up pending. Urine culture pending, UA negative for infection. Considering steroids but likely will have follow up with GI. LFTs slowly improving. Patient denies any complaints of chest pain, shortness of breath, n/v/d, abdominal pain, fever or chills. Reports he feels his jaundice is improving. Would like to go home. Review of Systems Review of Systems: ROS per HPI, all other systems reviewed and negative Physical Exam Physical Exam: Constitutional:L WD/WN, vitals as a connor Eyes: PERRL, conjunctiva e normal, anicteri c sclerae ENMT: external ear and n ose normal, oropha rynx normal Mouth : + poor dentition Respiratory: normal respiratory effort, lungs janeth ar to auscultation Cardiovascular:L Rate/Rhythm: regul ar rate and regula r rhythm Vessels: normal peripheral pulses Extremiti es: no edema Gastrointestinal ( Abdomen): normal bowel sound s, soft, nontender , no hepatosplenom egaly Musculoskeletal: no cyanosis or clu bbing, extremities motor strength 5/ 5 Skin: no rashes, warm an d dry + jaundice Neurologic: PERRL, EOMI, accom modation nl, no fa ce palsy, no dysar thria Psychiatric: A+Ox3, euthymic af fect Results & Data Results & Data ([facility]) Vital Signs (Past 12 Hours) Vital Signs Temp Pulse Resp BP Pulse Ox O2 Del Method 08/10/22 07:58 36.6 C 72 18 119/74 95 Room Air Diagnostic Findings Laboratory Results WBC 4.52 K/ul (4.8-10.8) L 08/10/22 09:12 RBC 4.02 M/uL (4.63-6.08) L 08/10/22 09:12 Hgb 14.2 g/dl (14.0-18.0) 08/10/22 09:12 POC Hgb 15.0 g/dl (14.0-18.0) 08/09/22 10:20 Hct 40.3 % (40.1-51.0) 08/10/22 09:12 POC Hct 44 % (42-52) 08/09/22 10:20 MCV 100.2 fL (80.0-100.0) H 08/10/22 09:12 MCH 35.3 pg (25.0-34.0) H 08/10/22 09:12 MCHC 35.2 g/dL (32.0-36.0) 08/10/22 09:12 RDW Std Deviation 69.7 fL (36.4-46.3) H 08/10/22 09:12 RDW Coeff of Marilyn 19.0 % (11.5-14.5) H 08/10/22 09:12 Plt Count 50 K/uL (130-400) L 08/10/22 09:12 MPV 11.0 fL (9.4-12.4) 08/10/22 09:12 Immature Gran % (Auto) 0.6 % 08/09/22 09:13 Neut % (Auto) 72.8 % 08/09/22 09:13 Lymph % (Auto) 12.9 % 08/09/22 09:13 [place] % (Auto) 12.2 % 08/09/22 09:13 Eos % (Auto) 0.9 % 08/09/22 09:13 Baso % (Auto) 0.6 % 08/09/22 09:13 Neut # (Auto) 4.63 K/uL (1.4-6.5) 08/09/22 09:13 Lymph # (Auto) 0.82 K/uL (1.2-3.4) L 08/09/22 09:13 [place] # (Auto) 0.78 K/uL (0.24-0.82) 08/09/22 09:13 Eos # (Auto) 0.06 K/uL (0-0.50) 08/09/22 09:13 Baso # (Auto) 0.04 K/uL (0-0.2) 08/09/22 09:13 Immature Gran # (Auto) 0.04 K/uL (0.00-0.02) H 08/09/22 09:13 PT 17.7 Seconds (9.0-12.0) H 08/09/22 14:54 INR 1.7 (0.9-1.1) H 08/09/22 14:54 POC Sodium 136 mmol/L (135-144) 08/09/22 10:20 Sodium 136 mmol/L (136-145) 08/10/22 09:12 POC Potassium 3.4 mmol/L (3.3-5.0) 08/09/22 10:20 Potassium 3.6 mmol/L (3.5-5.1) 08/10/22 09:12 POC Chloride 98 mmol/L (101-112) L 08/09/22 10:20 Chloride 103 mmol/L (98-107) 08/10/22 09:12 Carbon Dioxide 27 mmol/L (21-32) 08/10/22 09:12 POC Total CO2 26 mmol/L (24-31) 08/09/22 10:20 Anion Gap 6 (3-11) 08/10/22 09:12 POC Anion Gap 17.0 mmol/L (16-25) 08/09/22 10:20 POC BUN 7 mg/dl (7-18) 08/09/22 10:20 BUN 8 mg/dl (6-23) 08/10/22 09:12 Creatinine 1.07 mg/dl (0.6-1.4) 08/10/22 09:12 POC Creatinine 1.0 mg/dl (0.6-1.3) 08/09/22 10:20 Est Cr Clr Drug Dosing 115.6 ml/min 08/10/22 09:12 Est GFR ( Amer) 103.0 ml/min 08/10/22 09:12 Est GFR (Non-Af Amer) 88.8 ml/min 08/10/22 09:12 BUN/Creatinine Ratio 7.5 (10-20) L 08/10/22 09:12 Glucose 105 mg/dl (70-99(Fasting)) H 08/10/22 09:12 POC Glucose (other) 98 mg/dl (70-99) 08/09/22 10:20 Calcium 7.8 mg/dl (8.5-10.1) L 08/10/22 09:12 POC Ioniz Calcium Bennett 1.06 mmol/l (1.12-1.32) L 08/09/22 10:20 Phosphorus 2.4 mg/dl (2.5-4.9) L 08/10/22 09:12 Magnesium 2.2 mg/dl (1.7-2.4) 08/10/22 09:12 Ferritin 471.1 ng/ml (8-388) H 08/09/22 15:55 Total Bilirubin 21.1 mg/dl (0.2-1.0) H 08/10/22 09:12 AST 118 U/L (13-39) H 08/10/22 09:12 ALT 57 U/L (7-52) H 08/10/22 09:12 Alkaline Phosphatase 142 U/L (34-104) H 08/10/22 09:12 Total Protein 6.1 gm/dl (6.0-8.3) 08/10/22 09:12 Albumin 2.7 gm/dl (3.4-5.0) L 08/10/22 09:12 Globulin 3.4 gm/dl (2.5-4.0) 08/10/22 09:12 Albumin/Globulin Ratio 0.8 (0.9-2) L 08/10/22 09:12 Lipase TNP 08/09/22 09:13 Urine Color Dark Yellow 08/09/22 09:19 Urine Appearance Clear (Clear) 08/09/22 09:19 Urine pH 7.0 (4.5-7.5) 08/09/22 09:19 Ur Specific [place] 1.013 (1.000-1.030) 08/09/22 09:19 Urine Protein Negative (Negative) 08/09/22 09:19 Urine Glucose (UA) Negative (Negative) 08/09/22 09:19 Urine Ketones Trace (Negative) H 08/09/22 09:19 Urine Blood Negative (Negative) 08/09/22 09:19 Urine Nitrite Positive (Negative) A 08/09/22 09:19 Urine Bilirubin 3+ (Negative) H 08/09/22 09:19 Urine Urobilinogen Positive (Negative) H 08/09/22 09:19 Ur Leukocyte Esterase Negative (Negative) 08/09/22 09:19 Urine WBC (Auto) 0 /hpf (0-5) 08/09/22 09:19 Urine RBC (Auto) 0-4 /hpf (0-4) 08/09/22 09:19 U Hyaline Cast (Auto) 1-5 /lpf (0-5) 08/09/22 09:19 U Epithel Cells (Auto) 0-5 /lpf (0-5) 08/09/22 09:19 Urine Bacteria (Auto) Negative (Negative) 08/09/22 09:19 Urine Opiates Screen Neg (Neg) 08/09/22 15:57 Ur Methadone, Qual Neg (Neg) 08/09/22 15:57 Urine Barbiturates Neg (Neg) 08/09/22 15:57 Ur Phencyclidine (PCP) Neg (Neg) 08/09/22 15:57 U Amphetamin/Meth Scrn Neg (Neg) 08/09/22 15:57 MDMA (Ecstasy) Screen Neg (Neg) 08/09/22 15:57 U Benzodiazepines Scrn Neg (Neg) 08/09/22 15:57 Ur Cocaine Metabolite Neg (Neg) 08/09/22 15:57 U Marijuana (THC) Screen Neg (Neg) 08/09/22 15:57 Ethyl Alcohol mg/dL < 10.0 mg/dl (<10.0) 08/09/22 14:54 Monoscreen Negative (Negative) 08/09/22 17:07 Parvovirus IgG Ab Index Cancelled 08/09/22 15:55 Parvovirus IgM Ab Index Cancelled 08/09/22 15:55 SARS-CoV-2, RNA, NAAT NEGATIVE (NEGATIVE) 08/09/22 11:50 Impressions Abdomen/Pelvis CT 08/09/22 09:[address] WITH IV CONTRAST CT DOSE: 703.51 mGy.cm HISTORY: Acute abdominal pain with jaundice Jaundice TECHNIQUE: Multiaxial CT images of the abdomen and pelvis were performed following the IV administration of 87 cc of Optiray, A dose lowering technique was utilized adhering to the principles of ALARA. COMPARISON STUDY: Liver MRI 09/28/2017, CT 09/29/2017 FINDINGS: Clear lung bases. No pneumatosis or pneumoperitoneum. The spleen is enlarged, 14.2 cm in length. Unremarkable pancreas and adrenal glands. Mild gallbladder distention with gallbladder wall thickening and cholelithiasis. Mild pericholecystic inflammation. No biliary ductal dilation identified. Portal vein appears patent. Hepatic steatosis with cirrhosis. No hepatic mass identified. Unremarkable kidneys. No renal or ureteral calculi or hydronephrosis. Partial distention of the urinary bladder. Unremarkable prostate. Aorta and IVC are unremarkable. Borderline enlarged retroperitoneal lymph nodes are likely reactive. Upper abdominal varicosities. No bowel obstruction or bowel wall thickening. Normal appendix. Tiny fat and fluid filled umbilical hernia. Unremarkable soft tissues. Degenerative changes of the spine, pelvis and hips. No destructive bone lesions identified. IMPRESSION: 1. Cholelithiasis with mild gallbladder distention, wall thickening and pericholecystic stranding. Correlate clinically to exclude acute cholecystitis. 2. Hepatic steatosis with cirrhosis, abdominal varicosities and splenomegaly compatible with portal venous hypertension. 3. No bowel obstruction or bowel wall thickening. 4. Normal appendix. ACT 112: Negative or not required by law. The above report was generated using voice recognition software. It may contain grammatical, syntax or spelling errors. Electronically signed by: Almas Thomas M.D. 08/09/2022 11:16 AM Cholangiopancreatography MRI 08/09/22 13:30 MRCP CLINICAL HISTORY: transaminitis, ? choledocholithiasis TECHNIQUE: Utilizing a 1.5 Nohemy magnet and dedicated coil, multiplanar, multiecho imaging of the upper abdomen was performed utilizing heavily T2 weighted pulsing sequences without IV contrast. COMPARISON STUDY: CT of the abdomen and pelvis performed earlier today. MRI of the abdomen September 30, 2017. FINDINGS: The liver is cirrhotic. No hepatic lesions are identified on this unenhanced exam. No intra or extra hepatic biliary ductal dilatation is identified. No common bile duct calculi are identified although sensitivity for detection of small calculi is diminished given motion artifact on this exam. There is no pancreatic ductal dilatation. Gallbladder is mildly distended. There is a gallstone within the gallbladder. Gallbladder wall thickening is noted. Trace perihepatic ascites is present. Mild splenomegaly is noted. Hypointense foci within the spleen are likely related to portal hypertension. Large upper abdominal varices are noted. Unenhanced images of the adrenal glands, kidneys and pancreas are unremarkable. Possible pancreas divisum. IMPRESSION: 1. No biliary ductal dilatation. No common bile duct calculi identified although sensitivity for detection of small calculi diminished on this exam. 2. Cirrhosis. Splenomegaly, trace abdominal ascites and large upper abdominal varices indicative of portal hypertension. 3. Cholelithiasis with gallbladder distention and nonspecific gallbladder wall thickening. If indicated, a hepatobiliary scan could be obtained to exclude acute cholecystitis. ACT 112: Negative or not required by law. Electronically signed by: Josue Peña M.D. 08/09/2022 3:19 PM Orbit X-Ray 08/09/22 13:48 [facility] 3 VIEWS HISTORY: pre-MRI screening. COMPARISON: None. FINDINGS: There are no radiopaque foreign bodies identified within the orbits. A lip piercing is noted. IMPRESSION: No radiopaque foreign bodies identified within the orbits. ACT 112: Negative or not required by law. Electronically signed by: Josue Peña M.D. 08/09/2022 2:10 PM Medications Administered Current Inpatient Medications Folic Acid (Folic Acid 1 Mg Tab) 1 mg PO QAM MATTIE Stop: 09/08/22 16:29 Last Admin: 08/10/22 08:27 Dose: 1 mg Piperacillin Sod/Tazobactam (Sod 3.375 gm/ Dextrose) 115 mls @ 28.75 mls/hr IV Q12H [facility]; Protocol Stop: 08/20/22 00:00 Last Infusion: 08/10/22 03:59 Dose: Infused Thiamine HCl (Thiamine Hcl 100 Mg Tab) 100 mg PO QAM [facility] Stop: 09/08/22 16:29 Last Admin: 08/10/22 08:27 Dose: 100 mg
--- NOTE | 2022-08-10 12:51 | Surgery Progress Note ---
Date of Service August 10, 2022 Assessment & Plan (1) Liver cirrhosis: (2) Cholelithiasis: Plan 36 year-old male with history of alcoholic cirrhosis and hepatitis presented to Ed with generalized malaise, nausea for past 5 days and jaundice starting yesterday. CT scan with cholelithiasis and gallbladder distension and fluid. MRCP without evidence of choledocholithiasis and nonspecific gallbladder wall thickening with cholelithiasis. 08/10/2022: No abdominal pain no leukocytosis afebrile no postprandial pain no n,v Plan: No surgical indication at this time Nonspecific gallbladder thickening and pericholecystic fluid likely secondary to cirrhosis Continue medical management Continue GI work-up, outpatient GI follow-up recommended Our services singing off, please call with questions/concerns Discussed patient with Dr. Ward who agrees with above. Admission and Anticipated Discharge Date Admission Date: August 09, 2022 Subjective feeling well this morning no abdominal pain No nausea or vomiting tolerating diet without any abdominal pain no fevers or chills Physical Exam Constitutional: WD/WN, vitals as above cooperative and comfortable; no acute distress Respiratory: normal respiratory effort; no respiratory distress and no labored breathing Skin: + jaundice (scleral and generalized jaundice) Psychiatric: A+Ox3, euthymic affect Results & Data ([facility]) Vital Signs (Past 12 Hours) Vital Signs Temp Pulse Resp BP Pulse Ox O2 Del Method 08/10/22 07:58 36.6 C 72 18 119/74 95 Room Air Laboratory Results 08/10/22 08/10/22 08/09/22 Range/Units 09:12 09:12 17:07 WBC 4.52 L (4.8-10.8) K/ul RBC 4.02 L (4.63-6.08) M/uL Hgb 14.2 (14.0-18.0) g/dl Hct 40.3 (40.1-51.0) % MCV 100.2 H (80.0-100.0) fL MCH 35.3 H (25.0-34.0) pg MCHC 35.2 (32.0-36.0) g/dL RDW Std Deviation 69.7 H (36.4-46.3) fL RDW Coeff of Marilyn 19.0 H (11.5-14.5) % Plt Count 50 L (130-400) K/uL MPV 11.0 (9.4-12.4) fL PT (9.0-12.0) Seconds INR (0.9-1.1) Sodium 136 (136-145) mmol/L Potassium 3.6 (3.5-5.1) mmol/L Chloride 103 (98-107) mmol/L Carbon Dioxide 27 (21-32) mmol/L Anion Gap 6 (3-11) BUN 8 (6-23) mg/dl Creatinine 1.07 Est Cr Clr Drug Dosing 115.6 Est GFR ( Amer) 103.0 Est GFR (Non-Af Amer) 88.8 BUN/Creatinine Ratio 7.5 L (10-20) Glucose 105 H (70-99(Fasting)) mg/dl Calcium 7.8 L (8.5-10.1) mg/dl Phosphorus 2.4 L (2.5-4.9) mg/dl Magnesium 2.2 (1.7-2.4) mg/dl Ferritin (8-388) ng/ml Total Bilirubin 21.1 H (0.2-1.0) mg/dl AST 118 H (13-39) U/L ALT 57 H (7-52) U/L Alkaline Phosphatase 142 H (34-104) U/L Total Protein 6.1 (6.0-8.3) gm/dl Albumin 2.7 L (3.4-5.0) gm/dl Globulin 3.4 (2.5-4.0) gm/dl Albumin/Globulin Ratio 0.8 L (0.9-2) [id number] Ceruloplasmin Urine Opiates Screen Ur Methadone, Qual Urine Barbiturates Ur Phencyclidine (PCP) U Amphetamin/Meth Scrn MDMA (Ecstasy) Screen U Benzodiazepines Scrn Ur Cocaine Metabolite U Marijuana (THC) Screen Ethyl Alcohol mg/dL (<10.0) mg/dl SHAR Screen Actin IgG Antibody Anti-Smooth Muscle Ab CMV IgM Ab Hepatitis A IgM Ab Hep Bs Antigen Hep Bs Ag Confirmation Hep B Core IgM Ab Hepatitis C Ab (EIA) Hep C Ab Signal/Cutoff Monoscreen Negative (Negative) Parvovirus IgG Ab Index Parvovirus IgM Ab Index 08/09/22 08/09/22 08/09/22 Range/Units 15:57 15:55 15:55 WBC (4.8-10.8) K/ul RBC (4.63-6.08) M/uL Hgb (14.0-18.0) g/dl Hct (40.1-51.0) % MCV (80.0-100.0) fL MCH (25.0-34.0) pg MCHC (32.0-36.0) g/dL RDW Std Deviation (36.4-46.3) fL RDW Coeff of Marilyn (11.5-14.5) % Plt Count (130-400) K/uL MPV (9.4-12.4) fL PT (9.0-12.0) Seconds INR (0.9-1.1) Sodium (136-145) mmol/L Potassium (3.5-5.1) mmol/L Chloride (98-107) mmol/L Carbon Dioxide (21-32) mmol/L Anion Gap (3-11) BUN (6-23) mg/dl Creatinine Est Cr Clr Drug Dosing Est GFR ( Amer) Est GFR (Non-Af Amer) BUN/Creatinine Ratio (10-20) Glucose (70-99(Fasting)) mg/dl Calcium (8.5-10.1) mg/dl Phosphorus (2.5-4.9) mg/dl Magnesium (1.7-2.4) mg/dl Ferritin 471.1 H (8-388) ng/ml Total Bilirubin (0.2-1.0) mg/dl AST (13-39) U/L ALT (7-52) U/L Alkaline Phosphatase (34-104) U/L Total Protein (6.0-8.3) gm/dl Albumin (3.4-5.0) gm/dl Globulin (2.5-4.0) gm/dl Albumin/Globulin Ratio (0.9-2) [id number] Pending Ceruloplasmin Pending Urine Opiates Screen Neg Ur Methadone, Qual Neg Urine Barbiturates Neg Ur Phencyclidine (PCP) Neg U Amphetamin/Meth Scrn Neg MDMA (Ecstasy) Screen Neg U Benzodiazepines Scrn Neg Ur Cocaine Metabolite Neg U Marijuana (THC) Screen Neg Ethyl Alcohol mg/dL (<10.0) mg/dl SHAR Screen Pending Actin IgG Antibody Pending Anti-Smooth Muscle Ab Pending CMV IgM Ab Hepatitis A IgM Ab Hep Bs Antigen Hep Bs Ag Confirmation Hep B Core IgM Ab Hepatitis C Ab (EIA) Hep C Ab Signal/Cutoff Monoscreen (Negative) Parvovirus IgG Ab Index Pending Parvovirus IgM Ab Index Pending 08/09/22 08/09/22 08/09/22 Range/Units 15:55 14:54 14:54 WBC (4.8-10.8) K/ul RBC (4.63-6.08) M/uL Hgb (14.0-18.0) g/dl Hct (40.1-51.0) % MCV (80.0-100.0) fL MCH (25.0-34.0) pg MCHC (32.0-36.0) g/dL RDW Std Deviation (36.4-46.3) fL RDW Coeff of Marilyn (11.5-14.5) % Plt Count (130-400) K/uL MPV (9.4-12.4) fL PT 17.7 H (9.0-12.0) Seconds INR 1.7 H (0.9-1.1) Sodium (136-145) mmol/L Potassium (3.5-5.1) mmol/L Chloride (98-107) mmol/L Carbon Dioxide (21-32) mmol/L Anion Gap (3-11) BUN (6-23) mg/dl Creatinine TNP Est Cr Clr Drug Dosing Not Reportable Est GFR ( Amer) Not Reportable Est GFR (Non-Af Amer) Not Reportable BUN/Creatinine Ratio (10-20) Glucose (70-99(Fasting)) mg/dl Calcium (8.5-10.1) mg/dl Phosphorus (2.5-4.9) mg/dl Magnesium (1.7-2.4) mg/dl Ferritin (8-388) ng/ml Total Bilirubin (0.2-1.0) mg/dl AST (13-39) U/L ALT (7-52) U/L Alkaline Phosphatase (34-104) U/L Total Protein (6.0-8.3) gm/dl Albumin (3.4-5.0) gm/dl Globulin (2.5-4.0) gm/dl Albumin/Globulin Ratio (0.9-2) Ysllj-[id number]-Kovteeougwp Ceruloplasmin Urine Opiates Screen Ur Methadone, Qual Urine Barbiturates Ur Phencyclidine (PCP) U Amphetamin/Meth Scrn MDMA (Ecstasy) Screen U Benzodiazepines Scrn Ur Cocaine Metabolite U Marijuana (THC) Screen Ethyl Alcohol mg/dL (<10.0) mg/dl SHAR Screen Actin IgG Antibody Anti-Smooth Muscle Ab CMV IgM Ab Pending Hepatitis A IgM Ab Pending Hep Bs Antigen Pending Hep Bs Ag Confirmation Pending Hep B Core IgM Ab Pending Hepatitis C Ab (EIA) Pending Hep C Ab Signal/Cutoff Pending Monoscreen (Negative) Parvovirus IgG Ab Index Cancelled Parvovirus IgM Ab Index Cancelled 08/09/22 08/09/22 Range/Units 14:54 09:19 WBC (4.8-10.8) K/ul RBC (4.63-6.08) M/uL Hgb (14.0-18.0) g/dl Hct (40.1-51.0) % MCV (80.0-100.0) fL MCH (25.0-34.0) pg MCHC (32.0-36.0) g/dL RDW Std Deviation (36.4-46.3) fL RDW Coeff of Marilyn (11.5-14.5) % Plt Count (130-400) K/uL MPV (9.4-12.4) fL PT (9.0-12.0) Seconds INR (0.9-1.1) Sodium (136-145) mmol/L Potassium (3.5-5.1) mmol/L Chloride (98-107) mmol/L Carbon Dioxide (21-32) mmol/L Anion Gap (3-11) BUN (6-23) mg/dl Creatinine Est Cr Clr Drug Dosing Est GFR ( Amer) Est GFR (Non-Af Amer) BUN/Creatinine Ratio (10-20) Glucose (70-99(Fasting)) mg/dl Calcium (8.5-10.1) mg/dl Phosphorus (2.5-4.9) mg/dl Magnesium (1.7-2.4) mg/dl Ferritin (8-388) ng/ml Total Bilirubin (0.2-1.0) mg/dl AST (13-39) U/L ALT (7-52) U/L Alkaline Phosphatase (34-104) U/L Total Protein (6.0-8.3) gm/dl Albumin (3.4-5.0) gm/dl Globulin (2.5-4.0) gm/dl Albumin/Globulin Ratio (0.9-2) [id number] Ceruloplasmin Urine Opiates Screen Cancelled Ur Methadone, Qual Cancelled Urine Barbiturates Cancelled Ur Phencyclidine (PCP) Cancelled U Amphetamin/Meth Scrn Cancelled MDMA (Ecstasy) Screen Cancelled U Benzodiazepines Scrn Cancelled Ur Cocaine Metabolite Cancelled U Marijuana (THC) Screen Cancelled Ethyl Alcohol mg/dL < 10.0 (<10.0) mg/dl SHAR Screen Actin IgG Antibody Anti-Smooth Muscle Ab CMV IgM Ab Hepatitis A IgM Ab Hep Bs Antigen Hep Bs Ag Confirmation Hep B Core IgM Ab Hepatitis C Ab (EIA) Hep C Ab Signal/Cutoff Monoscreen (Negative) Parvovirus IgG Ab Index Parvovirus IgM Ab Index
[2022-08-11 14:37] LABS: CMV IgM Antibody <30.00 AU/mL; HBSAG NON-REACTIVE (NON-REACTIVE); Hepatitis A Antibody IgM NON-REACTIVE (NON-REACTIVE); Hepatitis B Core Antibody IgM NON-REACTIVE (NON-REACTIVE)
[2022-08-14 16:26] LABS: Alpha 1 Antitrypsin 164 mg/dL (83-199); Anti Nuclear Antibody Screen POSITIVE (NEGATIVE); Ceruloplasmin 23 mg/dL (18-36); Parvovirus IgG 7.2 (<0.9); Parvovirus IgM 0.1 (<0.9); Smooth Muscle Antibody NEGATIVE (NEGATIVE)
[2022-08-16 08:32] LABS: ANA Pattern Nuclear, Speckled; ANA Pattern 2 Cytoplasmic; ANA Titer 1:40 titer; ANA Titer 2 1:40 titer
--- NOTE | 2022-08-18 07:25 | Discharge Summary ---
Date of Service August 18, 2022 Admission HPI Per Admitting Provider 36-year-old male with prior history of alcoholic cirrhosis, alcoholic hepatitis, esophageal varices, ascites, SBP, history of DVT s/p Coumadin therapy, and other problems listed below who presents to the ED for evaluation of nausea and yellowing of the skin. Patient reports over the past 5 days, he has had nausea, generalized malaise, and suspected low-grade fever. Patient did not take his temperature. Patient denies abdominal pain, vomiting, diarrhea. Patient was last evaluated 04/2020 by GI for alcoholic cirrhosis. Patient reports maintaining sobriety since that time however did have " a couple of beers over the summer". Patient no longer takes daily medications. Was scheduled for follow-up EGD 05/2020 however did not show for the appointment and was not rescheduled. Patient denies chest pain or shortness of breath. Reports occasional episodes of lightheadedness and dizziness with standing too quickly, denies any syncopal event. No urinary symptoms. In the ED, patient was found to have transaminitis. CT ABD/pelvis shows Cholelithiasis with mild gallbladder distention, wall thickening and pericholecystic stranding. Hepatic steatosis with cirrhosis, abdominal varicosities and splenomegaly compatible with portal venous hypertension. Patient was given IVF. Admission Exam Per Admitting Provider Constitutional: WD/WN, vitals as above Eyes: PERRL, conjunctivae normal, anicteric sclerae ENMT: external ear and nose normal, oropharynx normal Mouth: + poor dentition Respiratory: normal respiratory effort, lungs clear to auscultation Cardiovascular: Rate/Rhythm: regular rate and regular rhythm Vessels: normal peripheral pulses Extremities: no edema Gastrointestinal (Abdomen): normal bowel sounds, soft, nontender, no hepatosplenomegaly Musculoskeletal: no cyanosis or clubbing, extremities motor strength 5/5 Skin: no rashes, warm and dry + jaundice Neurologic: PERRL, EOMI, accommodation nl, no face palsy, no dysarthria Psychiatric: A+Ox3, euthymic affect Principal Diagnosis elevated liver enzymes Discharge Exam Constitutional: WD/WN, vitals as above Eyes: PERRL, conjunctivae normal, anicteric sclerae ENMT: external ear and nose normal, oropharynx normal Mouth: + poor dentition Respiratory: normal respiratory effort, lungs clear to auscultation Cardiovascular: Rate/Rhythm: regular rate and regular rhythm Vessels: normal peripheral pulses Extremities: no edema Gastrointestinal (Abdomen): normal bowel sounds, soft, nontender, no hepatosplenomegaly Musculoskeletal: no cyanosis or clubbing, extremities motor strength 5/5 Skin: no rashes, warm and dry + jaundice Neurologic: PERRL, EOMI, accommodation nl, no face palsy, no dysarthria Psychiatric: A+Ox3, euthymic affect Discharge Data Allergies Allergy/AdvReac Type Severity Reaction Status Date / Time acetaminophen Allergy Intermediate ELEVATED Verified 08/09/22 10:36 FEVER amoxicillin Allergy Intermediate UNKNOWN Verified 08/09/22 10:36 Penicillins Allergy Intermediate UNKNOWN Verified 08/09/22 10:36 Consultations 08/09/22 12:25 ED Decision to Admit Stat 08/09/22 13:04 ED Decision to Admit Stat 08/09/22 13:30 Consult Gastroenterology Routine Consult General Surgery Routine Ordered Studies 08/09/22 09:01 CT abd pelvis IV con only Stat 08/09/22 13:30 MR MRCP Urgent Hospital Course (1) Transaminitis: - Patient presenting from home with reports of nausea, generalized malaise x 5 days - diffusely jaundiced - labs significant for T bili 23.5, AST 149, ALT 69, alk phos 182 - CT ABD/pelvis showing cholelithiasis with mild gallbladder distention, wall thickening and pericholecystic stranding - MRCP negative for cholecystitis - Surgery does not feel this is cholecystitis - Maddrey DF score elevated - concern for alcoholic hepatitis - slight trend down in LFTs today - patient asymptomatic - empiric abx can likely be discontinued - follow up GI for need for steroids (2) Cholelithiasis: - noted without cholecystitis (3) Liver cirrhosis: - History of alcoholic cirrhosis with esophageal varices, ascites, portal hypertensive gastropathy. - Last evaluated 04/2020 and has been lost to follow-up since. - Patient no longer taking daily medications. - CT ABD/pelvis today showing Hepatic steatosis with cirrhosis, abdominal varicosities and splenomegaly compatible with portal venous hypertension. - GI to follow up outpatient - thiamine and folic acid supplements (4) Alcohol use disorder: - history of alochol use disorder - has significantly cut back but report drinking ~2 weeks prior to admission - advised of further alcohol abstention Plan DVT ppx: SCDs Code Status: Full Code Dispo: Med/surg Nilo Fernandez MD [facility] Medicine Total Time Total Time Spent Total Time Spent (In Minutes): 20 Total Time Includes: Examination of the Patient, Discharge Planning, Medication Reconciliation and Communication With Other Providers Discharge Plan Discharge Items Patient Disposition: Home - Self-Care Reason For Visit: CHOLEDOCHOLITHIASIS, ACUTE CHOLECYSTITIS Discharge Diagnosis: Elevated liver enzymes Activity: Resume your previous activity Non-emergency contact: Primary Care Provider and Typer Call non-emergency contact if: you have any medication questions, your symptoms worsen and you have a fever Follow-up/Referrals: Jorge L Lopez MD [Physician] - (The gastroenterology office will call you with a follow up appointment.) Adan Muniz MD [Hospitalist] - 08/16/22 11:20 am (Date & Time 08/16/2022 11:20 AM Provider Adan Muniz MD Department Family Medicine [facility] ) Diet: Low Sodium (2gm) Addtl Attending Provider Instructions: You were admitted for elevation of your liver enzymes and bilirubin causing jaundice (yellowing of eyes and skin). There was concern for gall stones causing infection in the gallbladder but you had an MRI that showed this was not likely. You were seen by surgery and they did not feel this was cholecystitis (gallstone causing infection in the gallbladder). You were seen by Gastroenterology and there was concern for hepatitis that may have needed steroids. You labs slowly improved and it was felt you were ok without steroids and to be discharged. You should follow up with a primary care doctor (Appoint ment was set up for you on 08/16/2022 at 11:20AM - You will need repeat labs with complete metabolic panel (CMP) and PT/INR to assess your liver function testing ). You will be contacted by the GI office for GI follow up of your liver cirrhosis. Please return to the ER if you are feeling sick with worsening jaundice (yellowing of skin and eyes), having nausea and vomiting, fevers, or other symptoms that make you feel unwell. 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 Stand-Alone Forms: [employer], Smoking Cessation Medications and DC Order Prescriptions: New folic acid 1 mg Tablet 1 mg PO QAM Qty: 30 0RF thiamine HCl (vitamin B1) 100 mg Tablet 100 mg PO QAM Qty: 30 0RF Discharge Orders: Discharge Order (Routine); Ordered 08/10/22 Ordered By: Nilo Araiza/Other Patient Handouts: Treating Cirrhosis, Understanding Cirrhosis Admission Data Admit Date/Time: 08/09/22 13:30 Attending Provider: Nilo Fernandez Admit Provider: Nilo Fernandez Primary Care Provider: PCP,NO Other Providers: Jorge L Lopez ; Charlie Ward ; Giorgio Butterfield ; Nilo Fernandez Other Interventions: Discharge Summary Assessment (RN) Last Done: 08/10/22 15:11
== END 2022-08-10 15:25 | disposition home or self-care (01) | DRG 433 ==
LOC: ED 08:30 → EDINP 13:30 → 3N 16:18

== ENCOUNTER 2023-02-13 18:27 | Inpatient (IN) ==
[2023-02-13] MEDS ORDERED: SODIUM CHLORIDE 0.9% 500 ML IV ONE ×2 (19:13→22:48)
--- NOTE | 2023-02-13 19:45 | Emergency Department Note ---
Impression & Plan Alcoholic hepatitis, Transaminitis, Abdominal ascites, Hyponatremia, Acute renal insufficiency, Hypokalemia ED Provider Note NAME: BETSY HANSEN AGE: 37 SEX: M ARRIVES VIA: Walk-In INFORMANT: Patient ED PROVIDER(S): Fady Oliver MD CHIEF COMPLAINT: Abdominal bloating, cirrhosis. PLAN: Disposition: Admit MEDICAL DECISION MAKING: The patient is a pleasant 37-year-old gentleman with a past medical history alcoholic cirrhosis, alcoholic hepatitis, esophageal varices, ascites, history of SBP, history of DVT previously on warfarin,, history of medical noncompliance per records who presents to the emergency department for evaluation of generalized malaise and his report of having increased abdominal distention where he feels his ascites is back. Patient denies any fevers, abdominal pain, nausea, vomiting, diarrhea urinary symptoms. The patient appears severely jaundiced/yellow and reports that he "usually looks this yellow". He reports he last drank alcohol 2 weeks ago. He reports he has not followed up with his GI specialist in at least 3-4 months. He reports that he was not drinking alcohol at that time but then drank 2 weeks ago. The patient was admitted to this facility for alcoholic hepatitis from 08/09 2022-08/18/2006/29/2022. During this hospitalization he had MRCP that was negative for cholecystitis. Per outpatient [facility] records the patient was last seen August 24 and plan was for outpatient endoscopy/EUS however the patient reports that he ended up breaking his ankle and missed his appointments and has not had the opportunity to follow- up yet. On arrival the patient is no acute distress, afebrile, HR 100s, and otherwise stable vital signs. He appears severely jaundiced with mild abdominal distention but abdomen is soft and nontender. EKG without overt acute ischemia. Chest x-ray negative for acute cardiopulm onary process with likely atelectasis as the patient does not have respiratory symptoms. WBC within normal limits. H/H similar to prior values. Platelets 55 K similar to prior range values. INR 2.1, similar to prior range values. Sodium 124 decreased from prior in the setting of the patient's cirrhosis and alcohol use. Potassium 3.0 with repletion initiated. Chemistry without metabolic acidosis though complete chemistry not resulted due to icterus. I-STAT BMP demonstrates renal insufficiency with creatinine of 1.8. CPK within normal limits. Direct bilirubin 28.3, similar to prior presentation in July/August 2022. Direct bilirubin 15 without recent for comparison. AST and ALT and alk phos also similar to prior. Albumin is 2 similar to prior range of values in the setting of the patient cirrhosis. UA without convincing evidence of infection. Medical alcohol was undetectable. COVID-19 RNA, SHAHEED test was negative. CT of the abdomen pelvis was performed and demonstrates evidence of the patient's known cirrhosis with small volume ascites, evidence of portal hypertension including esophageal varices. IV fluid hydration provided for the patient's acute renal insufficiency. Patient agrees with plan for admission for further management evaluation. Blood cultures, procalcitonin and lactate ordered and are pending. Case was discussed with Dr. Day, [facility] [address] who will evaluate the patient for admission. I subsequently did assess the patient at the bedside with ultrasound for possible diagnostic paracentesis, however, no pocket amenable to drainage identified at this time. Admitting team updated. Further management per admitting team. Triage Nursing notes reviewed and agree them. Prior/outside medical records reviewed Vital Signs: reviewed Differential diagnosis: Infection, dehydration, metabolic abnormality, hypo/hyperglycemia, electrolyte disturbance, anemia, hypoxia, cardiac sources, intracerebral event, toxicologic, neurologic, as well as other pathologies. ER treatment provided: See below. Diagnostics interpreted by me: ECG: Sinus tachycardia, 101 bpm, no ectopy, no overt ST elevation or depression, QTc 565, QRS 98 Cardiac Monitoring: An order for continuous cardiac monitoring was placed and demonstrated Sinus tachycardia, 101 bpm, no ectopy. Laboratory studies: See below Imaging studies: See below Consultation(s): Case was discussed with Dr. Day, [facility] hospitalist who will evaluate the patient for admission. HPI: The patient is a pleasant 37-year-old gentleman with a past medical history alcoholic cirrhosis, alcoholic hepatitis, esophageal varices, ascites, history of SBP, history of DVT previously on warfarin,, history of medical noncompliance per records who presents to the emergency department for evaluation of generalized malaise and his report of having increased abdominal distention where he feels his ascites is back. Patient denies any fevers, abdominal pain, nausea, vomiting, diarrhea urinary symptoms. The patient appears severely jaundiced/yellow and reports that he "usually looks this yellow". He reports he last drank alcohol 2 weeks ago. He reports he has not followed up with his GI specialist in at least 3-4 months. He reports that he was not drinking alcohol at that time but then drank 2 weeks ago. The patient was admitted to this facility for alcoholic hepatitis from 08/09 2022-08/18/2006/29/2022. During this hospitalization he had MRCP that was negative for cholecystitis. Per outpatient [facility] records the patient was last seen August 24 and plan was for outpatient endoscopy/EUS however the patient reports that he ended up breaking his ankle and missed his appointments and has not had the opportunity to follow- up yet. ROS: See above HPI for pertinent positives & negatives. A total of 10 systems reviewed and were otherwise negative. VITALS:See Below PHYSICAL EXAMINATION: GENERAL: Awake, alert, chronically ill-appearing, in no distress HENT: Normocephalic, atraumatic. Oropharynx with dry mucous membranes and otherwise unremarkable. EYES: Normal conjunctiva. Sclera are icteric. NECK: Supple. No nuchal rigidity. FROM. No JVD. RESPIRATORY: Clear to auscultation. CARDIAC: Regular rate, normal rhythm. Extremities warm and well perfused. Pulses equal. ABDOMEN: Distended but soft. No tenderness to palpation. No rebound or guarding. No masses. RECTAL: Deferred. MUSCULOSKELETAL: Chest examination reveals no tenderness. The back is symmetrical on inspection without obvious abnormality. There is no CVA tenderness to palpation. No joint edema. LOWER EXTREMITIES: Calves are equal size bilaterally and non-tender. No edema. No discoloration. NEURO: Normal sensorium. No sensory or motor deficits noted. SKIN: No rash. Severe jaundice noted. Fady Oliver MD Past Med/Surg History Medical History Alcohol use disorder Alcoholic hepatitis Ascites Esophageal varices History of deep venous thrombosis Liver cirrhosis SBP (spontaneous bacterial peritonitis) Surgical History No significant past surgical history Family History Grandmother (Maternal) Colorectal cancer Mother Stroke Social History Smoking Status: Former smoker Tobacco Type: Cigarettes Do You Dip or Chew Tobacco: No; Hx Alcohol Use: Yes Alcohol type: beer Hx Substance Use: No Preferred Language: Swedish Communication Ability: Effective Communication Ability Comment: verbal Compliance Investigator Required: No Beliefs That Will Affect Care: None Current Living Situation: Family Feels Safe at Home: Yes Assistive Devices: None Allergies Allergies Allergy/AdvReac Type Severity Reaction Status Date / Time acetaminophen Allergy Intermediate ELEVATED Verified 02/13/23 19:30 FEVER amoxicillin Allergy Intermediate UNKNOWN Verified 02/13/23 19:30 Penicillins Allergy Intermediate UNKNOWN Verified 02/13/23 19:30 Home Meds Home Medications Medication Instructions Recorded Confirmed furosemide 20 mg tablet 20 mg PO QAM 02/13/23 02/13/23 spironolactone 50 mg tablet 50 mg PO QAM 02/13/23 02/13/23 Results & Data (ED) Vital Signs Vital Signs - 24 hr 02/13/23 18:40 02/13/23 19:52 02/13/23 20:06 Temperature 36.9 C Temperature Source Temporal Artery Scan Pulse Rate 103 H 100 H Pulse Rhythm Regular Respiratory Rate 20 18 20 Respiratory Effort / Characteristics Non-Labored Spontaneous Respiratory Depth Normal Blood Pressure 110/65 Blood Pressure Mean 80 Pulse Oximetry 96 96 99 Oxygen Delivery Method Room Air Room Air Room Air Sepsis New/Unexplained Change in Mental Status N/A Sepsis Action Taken by Nursing No Action Required 02/13/23 21:50 Temperature Temperature Source Pulse Rate 101 H Pulse Rhythm Respiratory Rate 15 Respiratory Effort / Characteristics Respiratory Depth Blood Pressure 124/64 Blood Pressure Mean 84 Pulse Oximetry 94 Oxygen Delivery Method Room Air Sepsis New/Unexplained Change in Mental Status Sepsis Action Taken by Nursing Laboratory Data Attestation: I reviewed the patient's lab results. 02/13/23 19:25 02/13/23 21:10 Lab Results 02/13/23 02/13/23 02/13/23 Range/Units 19:25 19:25 19:25 WBC 8.78 (4.8-10.8) K/ul RBC 3.63 L (4.70-6.10) M/uL Hgb 13.1 L (14.0-18.0) g/dl Hct 35.8 L (42.0-52.0) % MCV 98.6 (80.0-100.0) fL MCH 36.1 H (25.0-34.0) pg MCHC 36.6 H (32.0-36.0) g/dL RDW Std Deviation 66.5 H (36.4-46.3) fL RDW Coeff of Marilyn 18.5 H (11.5-14.5) % Plt Count 55 L (130-400) K/uL MPV 10.9 (9.4-12.4) fL Immature Gran % (Auto) 2.5 % Neut % (Auto) 75.2 % Lymph % (Auto) 6.6 % [place] % (Auto) 14.1 % Eos % (Auto) 0.9 % Baso % (Auto) 0.7 % Neut # (Auto) 6.60 H (1.40-6.50) K/uL Lymph # (Auto) 0.58 L (1.2-3.4) K/uL [place] # (Auto) 1.24 H (0.11-0.59) K/uL Eos # (Auto) 0.08 (0-0.50) K/uL Baso # (Auto) 0.06 (0-0.2) K/uL Immature Gran # (Auto) 0.22 H (0.01-0.20) K/uL PT Cancelled INR Cancelled Sodium Cancelled Potassium Cancelled Chloride Cancelled Carbon Dioxide Cancelled Anion Gap Cancelled BUN Cancelled Creatinine Cancelled Est Cr Clr Drug Dosing Cancelled Est GFR ( Amer) Cancelled Est GFR (Non-Af Amer) Cancelled BUN/Creatinine Ratio Cancelled Glucose Cancelled Calcium Cancelled Magnesium Cancelled Total Bilirubin Cancelled Direct Bilirubin Cancelled AST Cancelled ALT Cancelled Alkaline Phosphatase Cancelled Ammonia Total Creatine Kinase Cancelled Total Protein Cancelled Albumin Cancelled Globulin Cancelled Albumin/Globulin Ratio Cancelled TSH (0.300-4.500) uIu/ml Urine Color Urine Appearance (Clear) Urine pH (4.5-7.5) Ur Specific [place] (1.000-1.030) Urine Protein (Negative) Urine Glucose (UA) (Negative) Urine Ketones (Negative) Urine Blood (Negative) Urine Nitrite (Negative) Urine Bilirubin (Negative) Urine Urobilinogen (Negative) Ur Leukocyte Esterase (Negative) Urine WBC (Auto) (0-5) /hpf Urine RBC (Auto) (0-4) /hpf U Hyaline Cast (Auto) (0-5) /lpf U Epithel Cells (Auto) (0-5) /lpf Urine Bacteria (Auto) (Negative) Ethyl Alcohol mg/dL SARS-CoV-2, RNA, NAAT (NEGATIVE) 02/13/23 02/13/23 02/13/23 Range/Units 19:25 19:25 19:55 WBC (4.8-10.8) K/ul RBC (4.70-6.10) M/uL Hgb (14.0-18.0) g/dl Hct (42.0-52.0) % MCV (80.0-100.0) fL MCH (25.0-34.0) pg MCHC (32.0-36.0) g/dL RDW Std Deviation (36.4-46.3) fL RDW Coeff of Marilyn (11.5-14.5) % Plt Count (130-400) K/uL MPV (9.4-12.4) fL Immature Gran % (Auto) % Neut % (Auto) % Lymph % (Auto) % [place] % (Auto) % Eos % (Auto) % Baso % (Auto) % Neut # (Auto) (1.40-6.50) K/uL Lymph # (Auto) (1.2-3.4) K/uL [place] # (Auto) (0.11-0.59) K/uL Eos # (Auto) (0-0.50) K/uL Baso # (Auto) (0-0.2) K/uL Immature Gran # (Auto) (0.01-0.20) K/uL PT INR Sodium Potassium Chloride Carbon Dioxide Anion Gap BUN Creatinine Est Cr Clr Drug Dosing Est GFR ( Amer) Est GFR (Non-Af Amer) BUN/Creatinine Ratio Glucose Calcium Magnesium Total Bilirubin Direct Bilirubin AST ALT Alkaline Phosphatase Ammonia Total Creatine Kinase Total Protein Albumin Globulin Albumin/Globulin Ratio TSH 3.076 (0.300-4.500) uIu/ml Urine Color Urine Appearance (Clear) Urine pH (4.5-7.5) Ur Specific [place] (1.000-1.030) Urine Protein (Negative) Urine Glucose (UA) (Negative) Urine Ketones (Negative) Urine Blood (Negative) Urine Nitrite (Negative) Urine Bilirubin (Negative) Urine Urobilinogen (Negative) Ur Leukocyte Esterase (Negative) Urine WBC (Auto) (0-5) /hpf Urine RBC (Auto) (0-4) /hpf U Hyaline Cast (Auto) (0-5) /lpf U Epithel Cells (Auto) (0-5) /lpf Urine Bacteria (Auto) (Negative) Ethyl Alcohol mg/dL Cancelled SARS-CoV-2, RNA, NAAT NEGATIVE (NEGATIVE) 02/13/23 02/13/23 02/13/23 Range/Units 20:13 21:10 21:10 WBC (4.8-10.8) K/ul RBC (4.70-6.10) M/uL Hgb (14.0-18.0) g/dl Hct (42.0-52.0) % MCV (80.0-100.0) fL MCH (25.0-34.0) pg MCHC (32.0-36.0) g/dL RDW Std Deviation (36.4-46.3) fL RDW Coeff of Marilyn (11.5-14.5) % Plt Count (130-400) K/uL MPV (9.4-12.4) fL Immature Gran % (Auto) % Neut % (Auto) % Lymph % (Auto) % [place] % (Auto) % Eos % (Auto) % Baso % (Auto) % Neut # (Auto) (1.40-6.50) K/uL Lymph # (Auto) (1.2-3.4) K/uL [place] # (Auto) (0.11-0.59) K/uL Eos # (Auto) (0-0.50) K/uL Baso # (Auto) (0-0.2) K/uL Immature Gran # (Auto) (0.01-0.20) K/uL PT 22.1 H INR 2.1 H Sodium 124 L Potassium 3.0 L Chloride 90 L Carbon Dioxide 28 Anion Gap 6 BUN 18 Creatinine TNP Est Cr Clr Drug Dosing TNP Est GFR ( Amer) TNP Est GFR (Non-Af Amer) TNP BUN/Creatinine Ratio TNP Glucose 112 H Calcium 7.4 L Magnesium 2.3 Total Bilirubin 28.3 H Direct Bilirubin 15.0 H AST 117 H ALT 67 H Alkaline Phosphatase 130 H Ammonia Cancelled Total Creatine Kinase 88 Total Protein 5.9 L Albumin 2.0 L Globulin 3.9 Albumin/Globulin Ratio 0.5 L TSH (0.300-4.500) uIu/ml Urine Color Urine Appearance (Clear) Urine pH (4.5-7.5) Ur Specific [place] (1.000-1.030) Urine Protein (Negative) Urine Glucose (UA) (Negative) Urine Ketones (Negative) Urine Blood (Negative) Urine Nitrite (Negative) Urine Bilirubin (Negative) Urine Urobilinogen (Negative) Ur Leukocyte Esterase (Negative) Urine WBC (Auto) (0-5) /hpf Urine RBC (Auto) (0-4) /hpf U Hyaline Cast (Auto) (0-5) /lpf U Epithel Cells (Auto) (0-5) /lpf Urine Bacteria (Auto) (Negative) Ethyl Alcohol mg/dL SARS-CoV-2, RNA, NAAT (NEGATIVE) 02/13/23 02/13/23 02/13/23 Range/Units 21:10 21:10 21:27 WBC (4.8-10.8) K/ul RBC (4.70-6.10) M/uL Hgb (14.0-18.0) g/dl Hct (42.0-52.0) % MCV (80.0-100.0) fL MCH (25.0-34.0) pg MCHC (32.0-36.0) g/dL RDW Std Deviation (36.4-46.3) fL RDW Coeff of Marilyn (11.5-14.5) % Plt Count (130-400) K/uL MPV (9.4-12.4) fL Immature Gran % (Auto) % Neut % (Auto) % Lymph % (Auto) % [place] % (Auto) % Eos % (Auto) % Baso % (Auto) % Neut # (Auto) (1.40-6.50) K/uL Lymph # (Auto) (1.2-3.4) K/uL [place] # (Auto) (0.11-0.59) K/uL Eos # (Auto) (0-0.50) K/uL Baso # (Auto) (0-0.2) K/uL Immature Gran # (Auto) (0.01-0.20) K/uL PT INR Sodium Potassium Chloride Carbon Dioxide Anion Gap BUN Creatinine Est Cr Clr Drug Dosing Est GFR ( Amer) Est GFR (Non-Af Amer) BUN/Creatinine Ratio Glucose Calcium Magnesium Total Bilirubin Direct Bilirubin AST ALT Alkaline Phosphatase Ammonia TNP Total Creatine Kinase Total Protein Albumin Globulin Albumin/Globulin Ratio TSH (0.300-4.500) uIu/ml Urine Color Dark Yellow Urine Appearance Clear (Clear) Urine pH 7.0 (4.5-7.5) Ur Specific [place] 1.012 (1.000-1.030) Urine Protein Negative (Negative) Urine Glucose (UA) Negative (Negative) Urine Ketones Negative (Negative) Urine Blood Negative (Negative) Urine Nitrite Negative (Negative) Urine Bilirubin 3+ H (Negative) Urine Urobilinogen Negative (Negative) Ur Leukocyte Esterase Negative (Negative) Urine WBC (Auto) 0 (0-5) /hpf Urine RBC (Auto) 5-10 H (0-4) /hpf U Hyaline Cast (Auto) 0 (0-5) /lpf U Epithel Cells (Auto) 0-5 (0-5) /lpf Urine Bacteria (Auto) Negative (Negative) Ethyl Alcohol mg/dL < 10.0 SARS-CoV-2, RNA, NAAT (NEGATIVE) Administered Medications Discontinued Medications Sodium Chloride (Nss) 500 mls @ 999 mls/hr IV .Q31M ONE Stop: 02/13/23 19:43 Last Infusion: 02/13/23 20:22 Dose: 0 mls/hr Documented By: Admin: 02/13/23 19:51 Dose: 999 mls/hr Documented By: KRANTHI Sodium Chloride (Nss) 500 mls @ 999 mls/hr IV .Q31M ONE Stop: 02/13/23 23:18 Last Admin: 02/13/23 23:04 Dose: 999 mls/hr Documented By: KRANTHI Ioversol (Optiray 320 100ml) 99 ml IV ONCE ONE Stop: 02/13/23 21:55 Last Admin: 02/13/23 21:46 Dose: 99 ml Documented By: GREGOR Imaging Data Radiologist's Impression: Chest X-Ray 02/13/23 19:12 XR chest 1V portable CLINICAL HISTORY: weakness COMPARISON STUDY: Chest CT September 29, 2017. Chest radiograph November 20, 2022. FINDINGS: There is no pneumothorax or pleural effusion. Bibasilar opacities are present. Lung volumes are mildly diminished. No evidence for pulmonary edema. Cardiomediastinal silhouette is stable. IMPRESSION: Mildly diminished lung volumes with bibasilar opacities that favor atelectasis. Pneumonia is considered less likely. Radiographic follow-up to ensure resolution is recommended. ACT 112: Negative or not required by law. Electronically signed by: Josue Peña M.D. 02/13/2023 7:59 PM Abdomen/Pelvis CT 02/13/23 19:14 Exam(s): CT ABDOMEN + PELVIS With Contrast IV Amt: 99ML EXAM: CT Abdomen and Pelvis With Intravenous Contrast CLINICAL HISTORY: Reason for exam: cirrhosis, ascities, jaundice. TECHNIQUE: Axial computed tomography images of the abdomen and pelvis with intravenous contrast. CTDI is 19.25 mGy and DLP is 1070.33 mGy-cm. Automated exposure control was utilized for the study. A dose lowering technique was utilized adhering to the principles of ALARA. CONTRAST: Patient received 99ML of IV contrast COMPARISON: MRI 08/09/2022 FINDINGS: Pleural space: Trace left pleural effusion. Atelectasis at the lung bases. ABDOMEN: Liver: Heterogeneous cirrhotic liver. Gallbladder and bile ducts: Cholelithiasis. Pancreas: Unremarkable. Spleen: Splenomegaly. Adrenals: Unremarkable. Kidneys and ureters: Unremarkable. No obstructing stones. No hydronephrosis. Stomach and bowel: Marked mucosal thickening along the GI tract particularly within the colon. No obstruction or perforation. PELVIS: Appendix: No findings to suggest acute appendicitis. Bladder: Unremarkable. Reproductive: Unremarkable as visualized. ABDOMEN and PELVIS: Intraperitoneal space: Small volume ascites. Bones/joints: No acute fracture. Soft tissues: Small left inguinal and umbilical hernias containing ascitic fluid. Vasculature: Large portosystemic varices within the left upper quadrant. The portal vein and superior mesenteric vein are patent. Lymph nodes: Unremarkable. IMPRESSION: 1. Heterogeneous cirrhotic liver. 2. Cholelithiasis. 3. Large portosystemic varices within the left upper quadrant. 4. Splenomegaly. 5. Small volume ascites. 6. Marked mucosal thickening along the GI tract particularly within the colon consistent with portal enteropathy and portal colopathy. 7. Small left inguinal and umbilical hernias containing ascitic fluid. Electronically signed by: Celestino Mackay MD 02/13/23 22:39 PM Discharge Plan Visit Data Chief Complaint: GI Assessment Stated Complaint: ABDOMINAL SWELLING, HOT FLASHES - HX ASCITES ED Provider: Fady Oliver Discharge Problem: Alcoholic hepatitis, Transaminitis, Abdominal ascites, Hyponatremia, Acute renal insufficiency, Hypokalemia Forms Stand Alone Forms: My [facility] Prescriptions Prescriptions: No Action furosemide 20 mg tablet 20 mg PO QAM spironolactone 50 mg tablet 50 mg PO QAM Referrals Referrals: PCP,NO [Primary Care Provider] -
--- NOTE | 2023-02-13 20:00 | XRay Report ---
XR chest 1V portable CLINICAL HISTORY: weakness COMPARISON STUDY: Chest CT September 29, 2017. Chest radiograph November 20, 2022. FINDINGS: There is no pneumothorax or pleural effusion. Bibasilar opacities are present. Lung volumes are mildly diminished. No evidence for pulmonary edema. Cardiomediastinal silhouette is stable. IMPRESSION: Mildly diminished lung volumes with bibasilar opacities that favor atelectasis. Pneumonia is considered less likely. Radiographic follow-up to ensure resolution is recommended. ACT 112: Negative or not required by law. Electronically signed by: Josue Peña M.D. 02/13/2023 7:59 PM
[2023-02-13 20:09] LABS: Basophils # (auto) 0.06 K/uL (0-0.2); Basophils % (auto) 0.7 %; Eosinophils # (auto) 0.08 K/uL (0-0.50); Eosinophils % (auto) 0.9 %; Hematocrit (blood only) 35.8 % (42.0-52.0); Hemoglobin 13.1 g/dl (14.0-18.0); Immature Granulocytes # (auto) 0.22 K/uL (0.01-0.20); Immature Granulocytes % (auto) 2.5 %; Lymphocytes # (auto) 0.58 K/uL (1.2-3.4); Lymphocytes % (auto) 6.6 %; Mean Corpuscular Hemoglobin 36.1 pg (25.0-34.0); Mean Corpuscular Hgb Conc 36.6 g/dL (32.0-36.0); Mean Corpuscular Volume 98.6 fL (80.0-100.0); Mean Platelet Volume 10.9 fL (9.4-12.4); Monocytes # (auto) 1.24 K/uL (0.11-0.59); Monocytes % (auto) 14.1 %; Neutrophils % (auto) 75.2 %; Platelet Count 55 K/uL (130-400); RDW Coefficient of Variation 18.5 % (11.5-14.5); RDW Standard Deviation 66.5 fL (36.4-46.3); Red Blood Count 3.63 M/uL (4.70-6.10); White Blood Count 8.78 K/ul (4.8-10.8)
[2023-02-13 21:42] LABS: Appearance Urine Clear (Clear); Bacteria Urine Automated Negative (Negative); Blood Urine Negative (Negative); Cast Urine Automated 0 /lpf (0-5); Color Urine Dark Yellow; Epithelial Cell Urine Auto 0-5 /lpf (0-5); Glucose Urine UA Negative (Negative); Ketones Urine Negative (Negative); Protein Urine Negative (Negative); Specific Gravity Urine 1.012 (1.000-1.030); Urobilinogen Urine Negative (Negative); WBC Urine Automated 0 /hpf (0-5)
[2023-02-13 21:51] LABS: Bilirubin Urine 3+ (Negative)
[2023-02-13 21:52] LABS: Leukocyte Esterase Urine Negative (Negative); Nitrite Urine Negative (Negative)
[2023-02-13] MEDS ORDERED: OPTIRAY 320 100ml IV ONE (21:54)
[2023-02-13 22:07] LABS: INR 2.1 (0.9-1.1); Prothrombin Time 22.1 Seconds (9.0-12.0)
[2023-02-13 22:15] LABS: Alanine Aminotransferase 67 U/L (7-52); Albumin Globulin Ratio 0.5 (0.9-2); Alkaline Phosphatase 130 U/L (34-104); Anion Gap 6 (3-11); Aspartate Aminotransferase 117 U/L (13-39); Bilirubin,Total 28.3 mg/dl (0.2-1.0); Blood Urea Nitrogen 18 mg/dl (6-23); Calcium 7.4 mg/dl (8.6-10.3); Carbon Dioxide 28 mmol/L (21-32); Chloride 90 mmol/L (98-107); Creatine Kinase 88 U/L (30-223); Globulin 3.9 gm/dl (2.5-4.0); Glucose 112 mg/dl (70-99(Fasting)); Magnesium 2.3 mg/dl (1.7-2.4); Sodium 124 mmol/L (136-145); Total Protein 5.9 gm/dl (6.0-8.3)
--- NOTE | 2023-02-13 22:40 | CT Scan Report ---
Exam(s): CT ABDOMEN + PELVIS With Contrast IV Amt: 99ML EXAM: CT Abdomen and Pelvis With Intravenous Contrast CLINICAL HISTORY: Reason for exam: cirrhosis, ascities, jaundice. TECHNIQUE: Axial computed tomography images of the abdomen and pelvis with intravenous contrast. CTDI is 19.25 mGy and DLP is 1070.33 mGy-cm. Automated exposure control was utilized for the study. A dose lowering technique was utilized adhering to the principles of ALARA. CONTRAST: Patient received 99ML of IV contrast COMPARISON: MRI 08/09/2022 FINDINGS: Pleural space: Trace left pleural effusion. Atelectasis at the lung bases. ABDOMEN: Liver: Heterogeneous cirrhotic liver. Gallbladder and bile ducts: Cholelithiasis. Pancreas: Unremarkable. Spleen: Splenomegaly. Adrenals: Unremarkable. Kidneys and ureters: Unremarkable. No obstructing stones. No hydronephrosis. Stomach and bowel: Marked mucosal thickening along the GI tract particularly within the colon. No obstruction or perforation. PELVIS: Appendix: No findings to suggest acute appendicitis. Bladder: Unremarkable. Reproductive: Unremarkable as visualized. ABDOMEN and PELVIS: Intraperitoneal space: Small volume ascites. Bones/joints: No acute fracture. Soft tissues: Small left inguinal and umbilical hernias containing ascitic fluid. Vasculature: Large portosystemic varices within the left upper quadrant. The portal vein and superior mesenteric vein are patent. Lymph nodes: Unremarkable. IMPRESSION: 1. Heterogeneous cirrhotic liver. 2. Cholelithiasis. 3. Large portosystemic varices within the left upper quadrant. 4. Splenomegaly. 5. Small volume ascites. 6. Marked mucosal thickening along the GI tract particularly within the colon consistent with portal enteropathy and portal colopathy. 7. Small left inguinal and umbilical hernias containing ascitic fluid. Electronically signed by: Celestino Mackay MD 02/13/23 22:39 PM
[2023-02-13] MEDS ORDERED: SODIUM CHLORIDE 0.9% 500 ML IV SCH (23:00)
[2023-02-13] MEDS ORDERED: PHYTONADIONE 10 MG in DEXTROSE 5% 50 ML IV ONE (23:15)
[2023-02-13] MEDS ORDERED: POTASSIUM CHLORIDE CRTAB 20 MEQ TABCR PO STA (23:16)
[2023-02-13] MEDS ORDERED: THIAMINE HCL 100 MG in SYRINGE 9 ML IV STA (23:20)
[2023-02-14] MEDS ORDERED: PANTOprazole 80 MG in DEXTROSE 5% 100 ML IV STA (00:04)
[2023-02-14] MEDS ORDERED: cefTRIAXone SODIUM 2,000 MG/70 ML BAG IV STA (00:04)
[2023-02-14] MEDS ORDERED: GABAPENTIN 600 MG TAB PO STA (00:05)
--- NOTE | 2023-02-14 00:06 | History & Physical Report ---
Date of Service February 14, 2023 Assessment & Plan (1) Decompensated hepatic cirrhosis: Plan: hx alcoholic cirrhosis Possible SBP, possible sepsis given elevated procalcitonin Alcoholic hepatitis, poor prognosis with Maddrey's DF score of 81.4 points Anemia secondary to possible UGIB History GERD/esophageal varices Dark brown stool noted to be heme positive Alcohol withdrawal, patient noted to be tremulous on exam Hyponatremia secondary to decompensated cirrhosis Hypokalemia secondary to home diuretic Rx coagulopathy/ lumbar cytopenia secondary to liver disease past history DVT status post Coumadin hyperglycemia rule out DM past tobacco abuse PCU CS, Ceftriaxone, albumin for possible SBP Diagnostic and therapeutic paracentesis in a.m. IV PPI for UGIB Follow H&H, transfuse PRBC if hemoglobin less than 7 and or for symptomatic anemia BRANDIE S, DT precautions GI consult Re: Decompensated cirrhosis, alcohol hepatitis, GI bleed Careful correction of sodium, hyponatremia work-up, recheck sodium after initial boluses given at the ER Replace electrolytes Hold home diuretics until repeat sodium back Check hemoglobin A1c DVT prophylaxis. SCDs Re: GI bleed, thrombocytopenia Full code Text document was generated using [employer] voice recognition software. It may contain grammatical or spelling errors. Kindly contact undersigned for clarification of any documentation item in question. History of Present Illness Chief Complaint: Abdominal distention, jaundice Primary Care Provider: Dr. Muniz (Patient has not met provider.) History obtained from patient and records. Medical history significant for alcoholic cirrhosis, history esophageal varices, history SBP, GERD, past history DVT status post Coumadin, chronic thrombocytopenia, ongoing alcohol abuse, past tobacco abuse. Last confinement August 2022 for alcoholic hepatitis. Patient unable to follow-up with PCP and specialists after he broke his left ankle from a fall last September. No surgical intervention. Patient noted increasing abdominal distention and discomfort the last few days without fever, chills. Patient compliant with home diuretic Rx. No chest pain, no SOB, no headache. Denies emesis, black or bloody stools. Trying to cut down on drinking, claims last drink was 2 weeks ago. Jaundice noted at home the last 2 days. Patient consulted ER for evaluation. Medical History as above Showed esophageal varices, portal hypertensive gastropathy Surgical History : None 2016 EGD Family History : Colon cancer, stroke, heart disease Personal/Social history : Past tobacco abuse, alcohol abuse, [employer] employee Allergies Allergy/AdvReac Type Severity Reaction Status Date / Time acetaminophen Allergy Intermediate ELEVATED Verified 02/13/23 19:30 FEVER amoxicillin Allergy Intermediate UNKNOWN Verified 02/13/23 19:30 Penicillins Allergy Intermediate UNKNOWN Verified 02/13/23 19:30 Home Medications Medication Instructions Recorded Confirmed Type furosemide 20 mg tablet 20 mg PO QAM 02/13/23 02/13/23 History spironolactone 50 mg tablet 50 mg PO QAM 02/13/23 02/13/23 History Past Med/Surg History Medical History Alcohol use disorder Alcoholic hepatitis Ascites Esophageal varices History of deep venous thrombosis Liver cirrhosis SBP (spontaneous bacterial peritonitis) Surgical History No significant past surgical history Family History Grandmother (Maternal) Colorectal cancer Mother Stroke Social History Smoking Status: Former smoker Tobacco Type: Cigarettes Second Hand Exposure: No; Do You Dip or Chew Tobacco: No; Hx Alcohol Use: Yes Alcohol type: beer Hx Substance Use: No Preferred Language: Malay Communication Ability: Effective Communication Ability Comment: verbal Vaudeville Actor Required: No Beliefs That Will Affect Care: None Current Living Situation: Family Current Living Situation Comment: with two teenage daughters Other Information That Helps Us Care for You: No Feels Safe at Home: Yes Safety Concerns: Feels Safe At This Time Assistive Devices: None Review of Systems Review of Systems: As per HPI, all other systems reviewed and negative Physical Exam Physical Exam: GENERAL: Slightly uncomfortable, tremulous, no respiratory distress SKIN: jaundiced, spider angiomata noted over trunk, warm HEENT: Pale palpebral conjunctivae, anicteric sclerae, no ptosis, dry buccal mucosa NECK : Supple, no tenderness CHEST : CTA, no tenderness HEART : RRR, no obvious murmurs ABDOMEN: Abdominal distention, no overt tenderness RECTAL : Intact sphincter, dark brown stool (FOBT positive) EXTREMITIES : Minimal LE swelling, no LE tenderness, no other conspicuous deformities noted NEUROLOGIC : Coherent, no facial asymmetry, tremulous, no other gross focality Results & Data Results & Data Vital Signs (Past 12 Hours) Vital Signs Temp Pulse Resp BP Pulse Ox O2 Del Method 02/13/23 21:50 101 H 15 124/64 94 Room Air 02/13/23 20:06 20 99 Room Air 02/13/23 19:52 100 H 18 96 Room Air 02/13/23 18:40 36.9 C 103 H 20 110/65 96 Room Air Laboratory Results Laboratory Results WBC 8.78 K/ul (4.8-10.8) 02/13/23 19:25 RBC 3.63 M/uL (4.70-6.10) L 02/13/23 19:25 Hgb 13.1 g/dl (14.0-18.0) L 02/13/23 19:25 Hct 35.8 % (42.0-52.0) L 02/13/23 19:25 MCV 98.6 fL (80.0-100.0) 02/13/23 19:25 MCH 36.1 pg (25.0-34.0) H 02/13/23 19:25 MCHC 36.6 g/dL (32.0-36.0) H 02/13/23 19:25 RDW Std Deviation 66.5 fL (36.4-46.3) H 02/13/23 19:25 RDW Coeff of Marilyn 18.5 % (11.5-14.5) H 02/13/23 19:25 Plt Count 55 K/uL (130-400) L 02/13/23 19:25 MPV 10.9 fL (9.4-12.4) 02/13/23 19:25 Immature Gran % (Auto) 2.5 % 02/13/23 19:25 Neut % (Auto) 75.2 % 02/13/23 19:25 Lymph % (Auto) 6.6 % 02/13/23 19:25 [place] % (Auto) 14.1 % 02/13/23 19:25 Eos % (Auto) 0.9 % 02/13/23 19:25 Baso % (Auto) 0.7 % 02/13/23 19:25 Neut # (Auto) 6.60 K/uL (1.40-6.50) H 02/13/23 19:25 Lymph # (Auto) 0.58 K/uL (1.2-3.4) L 02/13/23 19:25 [place] # (Auto) 1.24 K/uL (0.11-0.59) H 02/13/23 19:25 Eos # (Auto) 0.08 K/uL (0-0.50) 02/13/23 19:25 Baso # (Auto) 0.06 K/uL (0-0.2) 02/13/23 19:25 Immature Gran # (Auto) 0.22 K/uL (0.01-0.20) H 02/13/23 19:25 PT 22.1 Seconds (9.0-12.0) H 02/13/23 21:10 INR 2.1 (0.9-1.1) H 02/13/23 21:10 Sodium 124 mmol/L (136-145) L 02/13/23 21:10 Potassium 3.0 mmol/L (3.5-5.1) L 02/13/23 21:10 Chloride 90 mmol/L (98-107) L 02/13/23 21:10 Carbon Dioxide 28 mmol/L (21-32) 02/13/23 21:10 Anion Gap 6 (3-11) 02/13/23 21:10 BUN 18 mg/dl (6-23) 02/13/23 21:10 Creatinine TN 02/13/23 21:10 Est Cr Clr Drug Dosing TN 02/13/23 21:10 Est GFR ( Amer) TN 02/13/23 21:10 Est GFR (Non-Af Amer) TN 02/13/23 21:10 BUN/Creatinine Ratio [facility] 02/13/23 21:10 Glucose 112 mg/dl (70-99(Fasting)) H 02/13/23 21:10 Lactate 1.5 mmol/L (0.4-2.0) 02/13/23 23:33 Calcium 7.4 mg/dl (8.6-10.3) L 02/13/23 21:10 Magnesium 2.3 mg/dl (1.7-2.4) 02/13/23 21:10 Total Bilirubin 28.3 mg/dl (0.2-1.0) H 02/13/23 21:10 Direct Bilirubin 15.0 mg/dl (0-0.2) H 02/13/23 21:10 AST 117 U/L (13-39) H 02/13/23 21:10 ALT 67 U/L (7-52) H 02/13/23 21:10 Alkaline Phosphatase 130 U/L (34-104) H 02/13/23 21:10 Ammonia TNP 02/13/23 21:10 Total Creatine Kinase 88 U/L (30-223) 02/13/23 21:10 Total Protein 5.9 gm/dl (6.0-8.3) L 02/13/23 21:10 Albumin 2.0 gm/dl (3.4-5.0) L 02/13/23 21:10 Globulin 3.9 gm/dl (2.5-4.0) 02/13/23 21:10 Albumin/Globulin Ratio 0.5 (0.9-2) L 02/13/23 21:10 TSH 3.076 uIu/ml (0.300-4.500) 02/13/23 19:25 Urine Color Dark Yellow 02/13/23 21:27 Urine Appearance Clear (Clear) 02/13/23 21:27 Urine pH 7.0 (4.5-7.5) 02/13/23 21:27 Ur Specific [place] 1.012 (1.000-1.030) 02/13/23 21:27 Urine Protein Negative (Negative) 02/13/23 21:27 Urine Glucose (UA) Negative (Negative) 02/13/23 21:27 Urine Ketones Negative (Negative) 02/13/23 21:27 Urine Blood Negative (Negative) 02/13/23 21:27 Urine Nitrite Negative (Negative) 02/13/23 21:27 Urine Bilirubin 3+ (Negative) H 02/13/23 21:27 Urine Urobilinogen Negative (Negative) 02/13/23 21:27 Ur Leukocyte Esterase Negative (Negative) 02/13/23 21:27 Urine WBC (Auto) 0 /hpf (0-5) 02/13/23 21:27 Urine RBC (Auto) 5-10 /hpf (0-4) H 02/13/23 21:27 U Hyaline Cast (Auto) 0 /lpf (0-5) 02/13/23 21:27 U Epithel Cells (Auto) 0-5 /lpf (0-5) 02/13/23 21:27 Urine Bacteria (Auto) Negative (Negative) 02/13/23 21:27 Ethyl Alcohol mg/dL < 10.0 mg/dl (<10.0) 02/13/23 21:10 SARS-CoV-2, RNA, NAAT NEGATIVE (NEGATIVE) 02/13/23 19:55 Impressions Chest X-Ray 02/13/23 19:12 XR chest 1V portable CLINICAL HISTORY: weakness COMPARISON STUDY: Chest CT September 29, 2017. Chest radiograph November 20, 2022. FINDINGS: There is no pneumothorax or pleural effusion. Bibasilar opacities are present. Lung volumes are mildly diminished. No evidence for pulmonary edema. Cardiomediastinal silhouette is stable. IMPRESSION: Mildly diminished lung volumes with bibasilar opacities that favor atelectasis. Pneumonia is considered less likely. Radiographic follow-up to ensure resolution is recommended. ACT 112: Negative or not required by law. Electronically signed by: Josue Peña M.D. 02/13/2023 7:59 PM Abdomen/Pelvis CT 02/13/23 19:14 Exam(s): CT ABDOMEN + PELVIS With Contrast IV Amt: 99ML EXAM: CT Abdomen and Pelvis With Intravenous Contrast CLINICAL HISTORY: Reason for exam: cirrhosis, ascities, jaundice. TECHNIQUE: Axial computed tomography images of the abdomen and pelvis with intravenous contrast. CTDI is 19.25 mGy and DLP is 1070.33 mGy-cm. Automated exposure control was utilized for the study. A dose lowering technique was utilized adhering to the principles of ALARA. CONTRAST: Patient received 99ML of IV contrast COMPARISON: MRI 08/09/2022 FINDINGS: Pleural space: Trace left pleural effusion. Atelectasis at the lung bases. ABDOMEN: Liver: Heterogeneous cirrhotic liver. Gallbladder and bile ducts: Cholelithiasis. Pancreas: Unremarkable. Spleen: Splenomegaly. Adrenals: Unremarkable. Kidneys and ureters: Unremarkable. No obstructing stones. No hydronephrosis. Stomach and bowel: Marked mucosal thickening along the GI tract particularly within the colon. No obstruction or perforation. PELVIS: Appendix: No findings to suggest acute appendicitis. Bladder: Unremarkable. Reproductive: Unremarkable as visualized. ABDOMEN and PELVIS: Intraperitoneal space: Small volume ascites. Bones/joints: No acute fracture. Soft tissues: Small left inguinal and umbilical hernias containing ascitic fluid. Vasculature: Large portosystemic varices within the left upper quadrant. The portal vein and superior mesenteric vein are patent. Lymph nodes: Unremarkable. IMPRESSION: 1. Heterogeneous cirrhotic liver. 2. Cholelithiasis. 3. Large portosystemic varices within the left upper quadrant. 4. Splenomegaly. 5. Small volume ascites. 6. Marked mucosal thickening along the GI tract particularly within the colon consistent with portal enteropathy and portal colopathy. 7. Small left inguinal and umbilical hernias containing ascitic fluid. Electronically signed by: Celestino Mackay MD 02/13/23 22:39 PM Diagnostic Findings EKG as per my interpretation : Rate 105, sinus tachycardia, normal axis, T wave abnormalities inferior leads
[2023-02-14] MEDS ORDERED: Ativan IV Alcohol Withdrawal--Active Protocol IV PRN (00:14)
[2023-02-14] MEDS ORDERED: GABAPENTIN 1200MG ALCOHOL WITHDRAWAL LOAD PO STA (00:14)
[2023-02-14] MEDS ORDERED: ALBUMIN 25% 100 mL 25 GM/100 ML VIAL IV ONE (00:14)
[2023-02-14] MEDS ORDERED: LORazepam 2 MG/1 ML VIAL IV PRN ×3 (00:14)
[2023-02-14] MEDS: POTASSIUM CHLORIDE / WTR 10 MEQ/100 ML PLCT IV SCH ×2 (00:53→02:04)
[2023-02-14 01:08] LABS: Hematocrit (blood only) 36.5 % (42.0-52.0)
[2023-02-14 01:44] LABS: Lipase 54 U/L (11-82); Sodium 123 mmol/L (136-145)
[2023-02-14] MEDS ORDERED: POTASSIUM CHLORIDE CRTAB 20 MEQ TABCR PO ONE (02:00)
[2023-02-14] MEDS ORDERED: PROMETHAZINE HCL 12.5 MG in SODIUM CHLORIDE 0.9% 50 ML IV PRN (02:02)
[2023-02-14] MEDS ORDERED: oxyCODONE HCL IR 5 MG TAB (IMMEDIATE RELEASE) PO PRN (02:02)
[2023-02-14] MEDS ORDERED: ACETAMINOPHEN 325 MG TAB PO PRN (02:02)
[2023-02-14 06:46] LABS: Basophils # (auto) 0.05 K/uL (0-0.2); Basophils % (auto) 0.6 %; Eosinophils # (auto) 0.14 K/uL (0-0.50); Eosinophils % (auto) 1.6 %; Hematocrit (blood only) 34.9 % (42.0-52.0); Hemoglobin 12.7 g/dl (14.0-18.0); Immature Granulocytes # (auto) 0.23 K/uL (0.01-0.20); Immature Granulocytes % (auto) 2.5 %; Lymphocytes # (auto) 0.84 K/uL (1.2-3.4); Lymphocytes % (auto) 9.3 %; Mean Corpuscular Hemoglobin 36.2 pg (25.0-34.0); Mean Corpuscular Hgb Conc 36.4 g/dL (32.0-36.0); Mean Corpuscular Volume 99.4 fL (80.0-100.0); Mean Platelet Volume 10.4 fL (9.4-12.4); Monocytes % (auto) 13.3 %; Neutrophils # (auto) 6.56 K/uL (1.40-6.50); Neutrophils % (auto) 72.7 %; Platelet Count 67 K/uL (130-400); RDW Coefficient of Variation 17.8 % (11.5-14.5); RDW Standard Deviation 64.9 fL (36.4-46.3); Red Blood Count 3.51 M/uL (4.70-6.10); White Blood Count 9.02 K/ul (4.8-10.8)
[2023-02-14 06:59] LABS: INR 2.1 (0.9-1.1); Prothrombin Time 21.9 Seconds (9.0-12.0)
[2023-02-14 07:03] LABS: Alanine Aminotransferase 67 U/L (7-52); Albumin Globulin Ratio 0.5 (0.9-2); Albumin Level 2.2 gm/dl (3.4-5.0); Anion Gap 7 (3-11); Aspartate Aminotransferase 114 U/L (13-39); Calcium 7.1 mg/dl (8.6-10.3); Carbon Dioxide 26 mmol/L (21-32); Chloride 93 mmol/L (98-107); Globulin 4.1 gm/dl (2.5-4.0); Glucose 81 mg/dl (70-99(Fasting)); Sodium 126 mmol/L (136-145); Total Protein 6.3 gm/dl (6.0-8.3)
[2023-02-14 07:04] LABS: Alkaline Phosphatase 129 U/L (34-104); Blood Urea Nitrogen 17 mg/dl (6-23)
[2023-02-14 07:14] LABS: Estimated Average Glucose 74 mg/dl; Hemoglobin A1C 4.2 % (4.5-5.6)
[2023-02-14] MEDS: FOLIC ACID 1 MG TAB PO SCH (09:05)
[2023-02-14] MEDS: THIAMINE HCL 100 MG TAB PO SCH (09:05)
[2023-02-14] MEDS: PANTOprazole 40 MG in SYRINGE 0 ML IV SCH ×2 (09:05→20:15)
[2023-02-14] MEDS: MULTIVITAMIN TAB PO SCH (09:05)
[2023-02-14] MEDS: ALBUMIN 25% 100 mL 25 GM/100 ML VIAL IV SCH ×2 (09:13→18:56)
[2023-02-14] MEDS: GABAPENTIN 600 MG TAB PO SCH ×3 (09:49→22:28)
[2023-02-14] MEDS ORDERED: AcetylCYSTEINE IV 21 HR REGIMEN (>40KG) IV STA (10:41)
[2023-02-14] MEDS ORDERED: AcetylCYSTEINE 15,000 MG in D5W 200mL (Load) IV ONE (11:00)
[2023-02-14] MEDS ORDERED: PHYTONADIONE 5 MG in DEXTROSE 5% 50 ML IV ONE (11:00)
--- NOTE | 2023-02-14 11:03 | Gastrointestinal Consultation ---
Date of Consultation February 14, 2023 Assessment & Plan (1) Decompensated hepatic cirrhosis: (2) Alcoholic hepatitis: Pt is a 37 yo male w hx of ETOH cirrhosis w ongoing ETOH, tobacco abuses, admitted for decompensated cirrhosis w ascites, and ETOH hepatitis. MELD 32, Maddreys Discriminant Function score 74. - F/U blood cx and DC Ceftriaxone if not positive. - US paracentesis today w cell ct, cx, protein, albumin. Albumin IV repletion ordered - 21hr NAC protocol - Prednisolone 40mg daily - Check Urine toxicology - Vit K 5mg IV today - 2g Na, 1800 fluid restriction; continue current diuretics - Electrolyte correction per primary team - Monitor mental status, renal and coag functions daily - ETOH cessation recommended. He refused rehab and counseling. - Will arrange OP GI/Hepatology f/u upon DC Supervising Physician Co-Signing Physician Notes Patient was seen and examined on 02/14 with DORIS Jimenez whose note reflects our findings and plan. Patient with alcoholic hepatitis in the setting of decompensated cirrhosis. Paracentesis completed. On NAC protocol. Agree with use of prednisolone. ETOH cessation is paramount to his survival. History of Present Illness Reason for Consultation: Ascites, cirrhosis Requesting Physician: Dr. Aubrey Jean Attending Physician: Dr. Supriya Birch History of Present Illness Pt is a 37 yo male w PMHx of ETOH cirrhosis w ongoing ETOH and tobacco abuses, complicated by varices, hx of ETOH hepatitis, DVT, who presented yesterday w increased abd distension since 3 days ago. Also noted he's been jaundiced the last 2 days. Denies fever, chills, CP, SOB, abd pain, n/v. He broke his L ankle s/p fall last September. Denies pain on legs/ankles, denies leg edema. Bowels moving w last BM overnight wo dark tarry stools or rectal bleeding. On eval, not ed to be afebrile, stable blood ct though had chronic anemia. LFTs up: Tbili 28, AST 114, ALT 67, ALk phose 129. INR 2.1, Cr unable to be calculated due to jaundice. Na 126. CT abd/pelvis showed small ascites w large LUQ varices. He is on Lasix 20mg and Spironolactone 50mg daily at home. He last drank 2 beers "couple of weeks ago". Admits that he "shouldn't be drinking" but refuses rehab or counseling. ETOH level <10. Allergies Allergy/AdvReac Type Severity Reaction Status Date / Time acetaminophen Allergy Intermediate ELEVATED Verified 02/13/23 19:30 FEVER amoxicillin Allergy Intermediate UNKNOWN Verified 02/13/23 19:30 Penicillins Allergy Intermediate UNKNOWN Verified 02/13/23 19:30 Home Medications Medication Instructions Recorded Confirmed Type furosemide 20 mg tablet 20 mg PO QAM 02/13/23 02/13/23 History spironolactone 50 mg tablet 50 mg PO QAM 02/13/23 02/13/23 History Patient History Medical History Alcohol use disorder Alcoholic hepatitis Ascites Esophageal varices History of deep venous thrombosis Liver cirrhosis SBP (spontaneous bacterial peritonitis) Surgical History No significant past surgical history Family History Grandmother (Maternal) Colorectal cancer Mother Stroke Social History Smoking Status: Former smoker Tobacco Type: Cigarettes Second Hand Exposure: No; Do You Dip or Chew Tobacco: No; Hx Alcohol Use: Yes Alcohol type: beer Hx Substance Use: No Preferred Language: Korean Communication Ability: Effective Communication Ability Comment: verbal Chair Trimmer Required: No Beliefs That Will Affect Care: None Current Living Situation: Family Current Living Situation Comment: with two teenage daughters Other Information That Helps Us Care for You: No Feels Safe at Home: Yes Safety Concerns: Feels Safe At This Time Assistive Devices: None Review of Systems Review of Systems: All systems reviewed & are unremarkable except as noted in HPI & below Physical Exam Constitutional: WD/WN, vitals as above well groomed, cooperative and comfortable Eyes: + scleral abnormality (icterus), PERRL and EOM intact bilaterally ENMT: external ear and nose normal, oropharynx normal Respiratory: normal respiratory effort, lungs clear to auscultation Cardiovascular: RRR, no murmur, no edema Skin: no rashes, warm and dry + jaundice Neurologic: Motor/Sensory: + tremor; no asterixis Psychiatric: A+Ox3, euthymic affect Lymphatic: no lymphedema Results & Data Vital Signs (Past 12 Hours) Vital Signs Temp Pulse Pulse Resp BP BP Pulse Ox 02/14/23 07:33 36.9 C 105 H 17 99/45 L 90 02/14/23 01:47 98 H 02/14/23 02:44 02/14/23 02:21 36.6 C 97 H 16 143/72 H 94 02/14/23 02:02 36.6 C 97 H 16 143/72 H 94 02/14/23 02:02 02/14/23 01:30 96 H 19 86/44 L 94 02/14/23 01:25 97 H 19 106/41 L 94 02/14/23 01:15 94 H 21 97/43 L 93 02/14/23 01:00 94 H 20 113/56 L 95 02/14/23 00:45 93 H 23 98/63 L 96 02/14/23 00:30 90 20 113/57 L 95 02/14/23 00:08 103 H 23 131/77 96 02/14/23 00:05 99 H 19 128/77 96 02/13/23 23:01 90 22 153/67 H 94 Pulse Ox O2 Del Method O2 Del Method 02/14/23 07:33 Room Air 02/14/23 01:47 02/14/23 02:44 Room Air 02/14/23 02:21 Room Air 02/14/23 02:02 Room Air 02/14/23 02:02 94 Room Air 02/14/23 01:30 Room Air 02/14/23 01:25 Room Air 02/14/23 01:15 Room Air 02/14/23 01:00 Room Air 02/14/23 00:45 Room Air 02/14/23 00:30 Room Air 02/14/23 00:08 Room Air 02/14/23 00:05 Room Air 02/13/23 23:01 Room Air
[2023-02-14] MEDS ORDERED: AcetylCYSTEINE 5,000mg in D5W 500mL (Maint Dose #1) IV ONE (12:00)
--- NOTE | 2023-02-14 15:32 | Ultrasound Report ---
ULTRASOUND-GUIDED DIAGNOSTIC PARACENTESIS CLINICAL HISTORY: Ascites PROCEDURE: Procedure and risks were explained. Informed consent was obtained. A final timeout was com pleted. Sonographic examination revealed a small amount of ascites. A pocket was identified in the l eft lower quadrant. The left lower quadrant was prepped and draped in sterile fashion. 1% buffered li docaine was utilized for skin anesthesia. Utilizing ultrasound guidance, a 5 Italian safety centesis c atheter was introduced into the pocket and 700 ml of yellow ascites fluid was drained and sent to the lab for analysis. Ultrasound images were obtained. The catheter was removed. The patient tolerated the procedure well. IMPRESSION: Ultrasound guided paracentesis as described above. Performed, dictated, and signed by Natan Steward PA-C; to be co-signed by Dr. Almas Thomas. Electronically signed by: Almas Thomas M.D. 02/14/2023 4:05 PM
--- NOTE | 2023-02-14 15:59 | Hospitalist Progress Note ---
Date of Service February 14, 2023 Assessment & Plan (1) Decompensated hepatic cirrhosis: Plan: hx alcoholic cirrhosis Possible SBP, possible sepsis given elevated procalcitonin Has been on intravenous ceftriaxone Appreciate GI input and recommendation Will have paracentesis this afternoon We will continue current antibiotic Alcoholic hepatitis, poor prognosis with Maddrey's DF score of 81.4 points Appreciate GI input and recommendation Started on oral prednisone Anemia secondary to possible UGIB History GERD/esophageal varices Dark brown stool noted to be heme positive IV PPI for UGIB Follow H&H, transfuse PRBC if hemoglobin less than 7 and or for symptomatic anemia No plan for endoscopy as per GI Alcohol withdrawal, patient noted to be tremulous on exam BRANDIE S, DT precautions Hyponatremia secondary to decompensated cirrhosis Hypokalemia secondary to home diuretic Rx Careful correction of sodium, hyponatremia work-up, recheck sodium after initial boluses given at the ER Replace electrolytes Monitor PRP Coagulopathy/ lumbar cytopenia secondary to liver disease Past history DVT status post Coumadin Hyperglycemia rule out DM Check hemoglobin A1c Past tobacco abuse DVT prophylaxis. SCDs Re: GI bleed, thrombocytopenia Full code Admission and Anticipated Discharge Date Admission Date: February 14, 2023 Subjective 02/14/2023 The patient was seen and examined in telemetry unit He has been complaining of abdominal discomfort and distention with nausea Denies any other symptoms except weakness Will have paracentesis this afternoon Review of Systems Review of Systems: All systems reviewed and are unremarkable except as noted below Physical Exam Physical Exam: Lying in bed with some discomfort Constitutional: well developed, well nourished, + ill appearing and + obese Eyes: PERRL, conjunctivae normal, anicteric sclerae ENMT: external ear and nose normal, oropharynx normal Neck: trachea midline, no thyromegaly Respiratory: no respiratory distress Auscultation: + diminished lung sounds and + crackles (Minimal crackles at the bases) Cardiovascular: Rate/Rhythm: regular rate, regular rhythm and + tachycardic Heart Sounds: normal S1 and normal S2; no murmur Extremities: + edema (1-2+ edema bilaterally) Gastrointestinal (Abdomen): Inspection/Auscultation: + abdomen distended and normal bowel sounds Percussion/Palpation: + abdomen tender and abdomen soft Musculoskeletal: No acute arthritis involving any joint Neurologic: normal touch/pain/proprioception and moves all extremities; no focal motor deficits Lymphatic: no cervical or axillary lymphadenopathy Results & Data Results & Data Vital Signs (Past 12 Hours) Vital Signs Temp Pulse Resp BP Pulse Ox O2 Del Method 02/14/23 12:09 36.9 C 102 H 18 97/51 L 92 Room Air 02/14/23 07:33 36.9 C 105 H 17 99/45 L 90 Room Air Laboratory Results Short CBC 02/13/23 02/13/23 02/14/23 Range/Units 19:25 23:35 05:41 WBC 8.78 9.02 (4.8-10.8) K/ul Hgb 13.1 L 13.0 L 12.7 L (14.0-18.0) g/dl Hct 35.8 L 36.5 L 34.9 L (42.0-52.0) % Plt Count 55 L 67 L (130-400) K/uL BMP 02/13/23 02/13/23 02/13/23 19:25 19:25 21:10 Sodium Cancelled 123 L 124 L Potassium Cancelled 3.0 L Chloride Cancelled 90 L Carbon Dioxide Cancelled 28 BUN Cancelled 18 Creatinine Cancelled TNP Glucose Cancelled 112 H Calcium Cancelled 7.4 L 02/14/23 05:41 Sodium 126 L Potassium 3.0 L Chloride 93 L Carbon Dioxide 26 BUN 17 Creatinine TNP Glucose 81 Calcium 7.1 L Cardiac Enzymes 02/13/23 02/13/23 Range/Units 19:25 21:10 Total Creatine Kinase Cancelled 88 Liver Function 02/13/23 02/13/23 02/14/23 Range/Units 19:25 21:10 05:41 Total Bilirubin Cancelled 28.3 H 28.0 H Direct Bilirubin Cancelled 15.0 H AST Cancelled 117 H 114 H ALT Cancelled 67 H 67 H Alkaline Phosphatase Cancelled 130 H 129 H Albumin Cancelled 2.0 L 2.2 L Urine 02/13/23 Range/Units 21:27 Urine Color Dark Yellow Urine Appearance Clear (Clear) Urine pH 7.0 (4.5-7.5) Ur Specific [place] 1.012 (1.000-1.030) Urine Protein Negative (Negative) Urine Glucose (UA) Negative (Negative) Medications Administered Current Inpatient Medications Acetaminophen (Acetaminophen 325 Mg Tab) 325 mg PO Q6H PRN PRN Reason: Mild Pain (Scale 1, 2, 3) Stop: 03/16/23 02:01 Folic Acid (Folic Acid 1 Mg Tab) 1 mg PO QAM [facility] Stop: 03/16/23 08:59 Last Admin: 02/14/23 09:05 Dose: 1 mg Furosemide (Furosemide 40 Mg Tab) 40 mg PO QAM [facility] Stop: 03/17/23 08:59 Gabapentin (Gabapentin 600 Mg Tab) 600 mg PO Q24H [facility] Stop: 02/17/23 12:01 Gabapentin (Gabapentin 600 Mg Tab) 600 mg PO Q12H [facility] Stop: 02/16/23 12:01 Gabapentin (Gabapentin 600 Mg Tab) 600 mg PO Q8H [facility] Stop: 02/15/23 14:01 Pantoprazole Sodium 40 mg/ (Syringe) 10 mls @ 5 mls/min IV BID [facility] Stop: 03/16/23 08:59 Last Admin: 02/14/23 09:05 Dose: 5 mls/min Albumin Human (Albumin 25% 100 Ml) 25 gm in 100 mls @ 50 mls/hr IV Q8H [facility] Stop: 02/17/23 09:59 Last Infusion: 02/14/23 11:50 Dose: Infused Promethazine HCl 12.5 mg/ (Sodium Chloride) 50.5 mls @ 202 mls/hr IV Q6H PRN PRN Reason: Nausea And Vomiting Stop: 03/16/23 02:01 Ceftriaxone Sodium 2,000 mg/ (Dextrose) 70 mls @ 100 mls/hr IV Q24H [facility]; Protocol Stop: 02/24/23 21:59 Acetylcysteine 5,000 mg/ (Dextrose) 525 mls @ 131.25 mls/hr IV NOW ONE; Protocol Stop: 02/14/23 15:59 Last Admin: 02/14/23 12:56 Dose: 131.3 mls/hr Acetylcysteine 10,000 mg/ (Dextrose) 1,050 mls @ 65.625 mls/hr IV TODAY@1600 MATTIE; Protocol Stop: 02/15/23 07:59 Lorazepam (Lorazepam 2 Mg/1 Ml Vial) 3 mg IV ONCE PRN; Protocol PRN Reason: EtOH Withdrawal AWSS Score 10+ Lorazepam (Lorazepam 2 Mg/1 Ml Vial) 2 mg IV UD PRN; Protocol PRN Reason: EtOH Withdrawal AWSS Score 8,9 Stop: 03/16/23 00:13 Lorazepam (Lorazepam 2 Mg/1 Ml Vial) 1 mg IV UD PRN; Protocol PRN Reason: EtOH Withdrawal AWSS Score 6,7 Stop: 03/16/23 00:13 Multivitamins (Multivitamin Tab) 1 tab PO QAM [facility] Stop: 03/16/23 08:59 Last Admin: 02/14/23 09:05 Dose: 1 tab Oxycodone HCl (Oxycodone Hcl Ir 5 Mg Tab (Immediate Release)) 5 mg PO Q4H PRN PRN Reason: Pain Stop: 02/28/23 02:01 Prednisolone Sodium Phosphate (Prednisolone Sod Phosphate 15 Mg/5 Ml) 40 mg PO DAILY [facility] Stop: 03/17/23 08:59 Spironolactone (Spironolactone 100 Mg Tab) 100 mg PO QAM [facility] Stop: 03/17/23 08:59 Thiamine HCl (Thiamine Hcl 100 Mg Tab) 100 mg PO QAM [facility] Stop: 03/16/23 08:59 Last Admin: 02/14/23 09:05 Dose: 100 mg
[2023-02-14] MEDS ORDERED: AcetylCYSTEINE 10,000 MG in D5W 1L (Maint Dose #2) IV SCH (16:00)
[2023-02-14 16:02] LABS: Albumin Peritoneal Fluid < 1.5 gm/dl
[2023-02-14 16:07] LABS: Total Protein Peritoneal Fluid < 3.0 gm/dl
[2023-02-14 16:38] LABS: Appearance Peritoneal Fluid Clear; Color Peritoneal Fluid Yellow; Lymphocytes, Fluid 10 %; Mono,Macrophage,Mesothelial 83 %; Neutrophils, Fluid 7 %; RBC Peritoneal Fluid Auto < 2000 /uL; WBC Peritoneal Fluid Auto 440 /ul (0-300)
[2023-02-14] MEDS: cefTRIAXone SODIUM 2,000 MG in DEXTROSE 5% 50 ML IV SCH (22:28)
[2023-02-15] MEDS: ALBUMIN 25% 100 mL 25 GM/100 ML VIAL IV SCH ×3 (02:36→18:39)
[2023-02-15 05:20] LABS: Basophils # (auto) 0.06 K/uL (0-0.2); Basophils % (auto) 0.9 %; Eosinophils # (auto) 0.15 K/uL (0-0.50); Eosinophils % (auto) 2.2 %; Hematocrit (blood only) 29.1 % (42.0-52.0); Hemoglobin 10.4 g/dl (14.0-18.0); Immature Granulocytes # (auto) 0.13 K/uL (0.01-0.20); Immature Granulocytes % (auto) 1.9 %; Lymphocytes # (auto) 0.68 K/uL (1.2-3.4); Lymphocytes % (auto) 9.8 %; Mean Corpuscular Hemoglobin 36.4 pg (25.0-34.0); Mean Corpuscular Hgb Conc 35.7 g/dL (32.0-36.0); Mean Corpuscular Volume 101.7 fL (80.0-100.0); Mean Platelet Volume 9.9 fL (9.4-12.4); Monocytes # (auto) 0.98 K/uL (0.11-0.59); Monocytes % (auto) 14.2 %; Neutrophils # (auto) 4.91 K/uL (1.40-6.50); Platelet Count 50 K/uL (130-400); RDW Coefficient of Variation 18.6 % (11.5-14.5); RDW Standard Deviation 69.4 fL (36.4-46.3); Red Blood Count 2.86 M/uL (4.70-6.10); White Blood Count 6.91 K/ul (4.8-10.8)
[2023-02-15 05:23] LABS: INR 2.2 (0.9-1.1); Prothrombin Time 23.3 Seconds (9.0-12.0)
[2023-02-15 05:30] LABS: Alanine Aminotransferase 50 U/L (7-52); Albumin Globulin Ratio 0.8 (0.9-2); Albumin Level 2.5 gm/dl (3.4-5.0); Anion Gap 7 (3-11); Aspartate Aminotransferase 84 U/L (13-39); Bilirubin,Total 28.2 mg/dl (0.2-1.0); Calcium 7.2 mg/dl (8.6-10.3); Carbon Dioxide 27 mmol/L (21-32); Chloride 94 mmol/L (98-107); Glucose 89 mg/dl (70-99(Fasting)); Phosphorus 1.9 mg/dl (2.5-4.9); Potassium 2.5 mmol/L (3.5-5.1); Sodium 128 mmol/L (136-145); Total Protein 5.5 gm/dl (6.0-8.3)
[2023-02-15] MEDS: GABAPENTIN 600 MG TAB PO SCH ×3 (05:33→23:41)
[2023-02-15] MEDS ORDERED: POTASSIUM CHLORIDE CRTAB 20 MEQ TABCR PO STA (06:07)
[2023-02-15] MEDS: POTASSIUM CHLORIDE / WTR 10 MEQ/100 ML PLCT IV SCH ×4 (06:53→12:13)
[2023-02-15] MEDS: FUROSEMIDE 40 MG TAB PO SCH (08:19)
[2023-02-15] MEDS: SPIRONOLACTONE 100 MG TAB PO SCH (08:19)
[2023-02-15] MEDS: THIAMINE HCL 100 MG TAB PO SCH (08:20)
[2023-02-15] MEDS: FOLIC ACID 1 MG TAB PO SCH (08:20)
[2023-02-15] MEDS: MULTIVITAMIN TAB PO SCH (08:20)
[2023-02-15] MEDS: prednisoLONE sod phosphate 15 MG/5 ML PO SCH (08:21)
[2023-02-15] MEDS: PANTOprazole 40 MG in SYRINGE 0 ML IV SCH ×2 (08:21→21:01)
[2023-02-15] MEDS ORDERED: POTASSIUM CHLORIDE 10 MEQ TABCR PO ONE (08:30)
[2023-02-15] MEDS ORDERED: POTASSIUM PHOS 3 MMOL/1 ML INFUSION IV STA (08:53)
[2023-02-15] MEDS ORDERED: POTASSIUM PHOSPHATE 30 MMOL in SODIUM CHLORIDE 0.9% 500 ML IV ONE (09:15)
[2023-02-15] MEDS ORDERED: Nursing to Pharmacy Communication SCH (10:00)
--- NOTE | 2023-02-15 12:48 | Gastroenterology Progress Note ---
Date of Service February 15, 2023 Assessment & Plan (1) Decompensated hepatic cirrhosis: (2) Alcoholic hepatitis: Plan: Pt is a 37 yo male w hx of ETOH cirrhosis w ongoing ETOH, tobacco abuses, admitted for decompensated cirrhosis w ascites, and ETOH hepatitis. MELD 32, Maddreys Discriminant Function score 74. - F/U blood cx and DC Ceftriaxone if not positive. - F/U ascites culture results - 21hr NAC protocol - Prednisolone 40mg daily ; check Lille score at day 7 after starting steroids to determine if pt responding to glucocorticoid therapy - F/U Urine toxicology - 2g Na, 1800 fluid restriction; continue current diuretics - Electrolyte correction per primary team - Monitor mental status, renal and coag functions daily - ETOH cessation recommended. He refused rehab and counseling. - Will arrange OP GI/Hepatology f/u upon DC Admission and Anticipated Discharge Date Admission Date: February 14, 2023 Supervising Physician Co-Signing Physician Notes Patient was seen and examined on 02/15 with DORIS Jimenez whose note reflects our findings and plan. Subjective US paracentesis done yesterday w 700mL of fluid removal. No sign of SBP per ascites fluid cell ct. Pt reports abd less distended, no n/v. Bowels move yesterday wo rectal bleeding or dark tarry stools. Review of Systems Review of Systems: All systems reviewed & are unremarkable except as noted in HPI & below Physical Exam Constitutional: WD/WN, vitals as above well groomed, cooperative and comfortable Eyes: + scleral abnormality (icterus), PERRL and EOM intact bilaterally ENMT: external ear and nose normal, oropharynx normal Respiratory: normal respiratory effort, lungs clear to auscultation Cardiovascular: RRR, no murmur, no edema Gastrointestinal (Abdomen): + distended but less compared to yesterday, non tender, BS present Skin: no rashes, warm and dry + jaundice Neurologic: Motor/Sensory: + tremor; no asterixis Psychiatric: A+Ox3, euthymic affect Lymphatic: no lymphedema Results & Data Vital Signs (Past 12 Hours) Vital Signs Temp Pulse Resp BP Pulse Ox Pulse Ox O2 Del Method 02/15/23 12:32 36.6 C 89 18 110/60 93 Room Air 02/15/23 07:14 36.7 C 103 H 19 160/82 H 96 Room Air 02/15/23 03:12 102 H 17 119/66 91 Room Air 02/15/23 02:02 97 O2 Del Method 02/15/23 12:32 02/15/23 07:14 02/15/23 03:12 02/15/23 02:02 Room Air
--- NOTE | 2023-02-15 16:22 | Discharge Summary ---
Date of Service February 15, 2023 Admission HPI Per Admitting Provider History obtained from patient and records. Medical history significant for alcoholic cirrhosis, history esophageal varices, history SBP, GERD, past history DVT status post Coumadin, chronic thrombocytopenia, ongoing alcohol abuse, past tobacco abuse. Last confinement August 2022 for alcoholic hepatitis. Patient unable to follow-up with PCP and specialists after he broke his left ankle from a fall last September. No surgical intervention. Patient noted increasing abdominal distention and discomfort the last few days without fever, chills. Patient compliant with home diuretic Rx. No chest pain, no SOB, no headache. Denies emesis, black or bloody stools. Trying to cut down on drinking, claims last drink was 2 weeks ago. Jaundice noted at home the last 2 days. Patient consulted ER for evaluation. 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 Discharge Data Allergies Allergy/AdvReac Type Severity Reaction Status Date / Time acetaminophen Allergy Intermediate ELEVATED Verified 02/13/23 19:30 FEVER amoxicillin Allergy Intermediate UNKNOWN Verified 02/13/23 19:30 Penicillins Allergy Intermediate UNKNOWN Verified 02/13/23 19:30 Consultations 02/13/23 22:48 ED Decision to Admit Stat 02/14/23 02:02 Consult Gastroenterology Routine Ordered Studies 02/13/23 19:14 CT abd pelvis IV con only Stat 02/14/23 08:00 IR paracentesis abd w/img US Routine Discharge Plan Discharge Items Reason For Visit: ETOH WITHDRAWAL, DECOMP CIRRHOSIS Follow-up/Referrals: PCP,NO [Primary Care Provider] - Medications and DC Order Prescriptions: No Action furosemide 20 mg tablet 20 mg PO QAM spironolactone 50 mg tablet 50 mg PO QAM Admission Data Admit Date/Time: 02/14/23 00:08 Attending Provider: Aubrey Jean Admit Provider: Douglas Day Primary Care Provider: PCP,JUAN Other Providers: Douglas Day ; Arash Archuleta ; Brown Hung ; Jaylyn Salter ; Maggy Bello ; Lyly Mcduffie ; Debbie Hansen ; Agustin Espinoza ; Jorge L Lopez ; Letty Boudreaux ; Esther Anaya ; Presley iRbeiro ; Carrie Stewart ; Supriya Birch ; Jeanne Ruiz ; Daysi Meredith ; Danika Pearson ; Jonatan Parra ; Milan Montague ; Isabelle De Guzman ; Areli Summers Jr
--- NOTE | 2023-02-15 16:31 | Hospitalist Progress Note ---
Date of Service February 15, 2023 Assessment & Plan (1) Decompensated hepatic cirrhosis: Plan: hx alcoholic cirrhosis Possible SBP-ruled out, possible sepsis given elevated procalcitonin Has been on intravenous ceftriaxone Appreciate GI input and recommendation Will have paracentesis this afternoon We will continue current antibiotic Blood cultures have been negative and will discontinue the antibiotic Abdominal symptoms are improved Alcoholic hepatitis, poor prognosis with Maddrey's DF score of 81.4 points Appreciate GI input and recommendation Started on oral prednisone We will continue prednisone as advised Total bilirubin remains very high at 28.2 Anemia secondary to possible UGIB History GERD/esophageal varices Dark brown stool noted to be heme positive IV PPI for UGIB Follow H&H, transfuse PRBC if hemoglobin less than 7 and or for symptomatic anem ia No plan for endoscopy as per GI Hemoglobin remains stable and dropped to 10.4 from 13.1 on admission Alcohol withdrawal, patient noted to be tremulous on exam BRANDIE S, DT precautions Strongly advised to quit drinking Severe electrolyte imbalance Hyponatremia secondary to decompensated cirrhosis Hypokalemia secondary to home diuretic Rx Careful correction of sodium, hyponatremia work-up, recheck sodium after initial boluses given at the ER Hypophosphatemia Replace electrolytes Monitor PRP and phosphate Coagulopathy/ 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 SCDs Re: GI bleed, thrombocytopenia INR remains elevated at 2.2 Full code Admission and Anticipated Discharge Date Admission Date: February 14, 2023 Subjective 02/14/2023 The patient was seen and examined in telemetry unit He has been complaining of abdominal discomfort and distention with nausea Denies any other symptoms except weakness Will have paracentesis this afternoon 02/15/2023 The patient was seen and examined in telemetry unit He remains weak and lethargic and deeply jaundiced Denies any fever and or chills, no nausea no vomiting Abdominal distention is improved Review of Systems Review of Systems: All systems reviewed and are unremarkable except as noted below Physical Exam Physical Exam: Lying in bed with some discomfort Constitutional: well developed, well nourished, + ill appearing and + obese Eyes: PERRL, conjunctivae normal, anicteric sclerae ENMT: external ear and nose normal, oropharynx normal Neck: trachea midline, no thyromegaly Respiratory: no respiratory distress Auscultation: + diminished lung sounds and + crackles (Minimal crackles at the bases) Cardiovascular: Rate/Rhythm: regular rate, regular rhythm and + tachycardic Heart Sounds: normal S1 and normal S2; no murmur Extremities: + edema (1-2+ edema bilaterally) Gastrointestinal (Abdomen): Inspection/Auscultation: + abdomen distended and normal bowel sounds Percussion/Palpation: + abdomen tender and abdomen soft Musculoskeletal: No acute arthritis involving any joint Neurologic: normal touch/pain/proprioception and moves all extremities; no focal motor deficits Lymphatic: no cervical or axillary lymphadenopathy Results & Data Results & Data Vital Signs (Past 12 Hours) Vital Signs Temp Pulse Resp BP Pulse Ox O2 Del Method 02/15/23 12:32 36.6 C 89 18 110/60 93 Room Air 02/15/23 07:14 36.7 C 103 H 19 160/82 H 96 Room Air Laboratory Results Short CBC 02/15/23 Range/Units 04:39 WBC 6.91 (4.8-10.8) K/ul Hgb 10.4 L (14.0-18.0) g/dl Hct 29.1 L (42.0-52.0) % Plt Count 50 L (130-400) K/uL BMP 02/15/23 04:39 Sodium 128 L Potassium 2.5 L* Chloride 94 L Carbon Dioxide 27 BUN TNP Creatinine TNP Glucose 89 Calcium 7.2 L Liver Function 02/15/23 Range/Units 04:39 Total Bilirubin 28.2 H (0.2-1.0) mg/dl AST 84 H (13-39) U/L ALT 50 (7-52) U/L Alkaline Phosphatase TNP Albumin 2.5 L (3.4-5.0) gm/dl Medications Administered Current Inpatient Medications Acetaminophen (Acetaminophen 325 Mg Tab) 325 mg PO Q6H PRN PRN Reason: Mild Pain (Scale 1, 2, 3) Stop: 03/16/23 02:01 Folic Acid (Folic Acid 1 Mg Tab) 1 mg PO [facility] Stop: 03/16/23 08:59 Last Admin: 02/15/23 08:20 Dose: 1 mg Furosemide (Furosemide 40 Mg Tab) 40 mg PO [facility] Stop: 03/17/23 08:59 Last Admin: 02/15/23 08:19 Dose: 40 mg Gabapentin (Gabapentin 600 Mg Tab) 600 mg PO Q24H [facility] Stop: 02/17/23 12:01 Gabapentin (Gabapentin 600 Mg Tab) 600 mg PO Q12H [facility] Stop: 02/16/23 12:01 Pantoprazole Sodium 40 mg/ (Syringe) 10 mls @ 5 mls/min IV BID [facility] Stop: 03/16/23 08:59 Last Admin: 02/15/23 08:21 Dose: 5 mls/min Albumin Human (Albumin 25% 100 Ml) 25 gm in 100 mls @ 50 mls/hr IV Q8H [facility] Stop: 02/17/23 09:59 Last Infusion: 02/15/23 15:11 Dose: Infused Promethazine HCl 12.5 mg/ (Sodium Chloride) 50.5 mls @ 202 mls/hr IV Q6H PRN PRN Reason: Nausea And Vomiting Stop: 03/16/23 02:01 Ceftriaxone Sodium 2,000 mg/ (Dextrose) 70 mls @ 100 mls/hr IV Q24H [facility]; Protocol Stop: 02/24/23 21:59 Last Infusion: 02/14/23 23:11 Dose: Infused Lorazepam (Lorazepam 2 Mg/1 Ml Vial) 3 mg IV ONCE PRN; Protocol PRN Reason: EtOH Withdrawal AWSS Score 10+ Lorazepam (Lorazepam 2 Mg/1 Ml Vial) 2 mg IV UD PRN; Protocol PRN Reason: EtOH Withdrawal AWSS Score 8,9 Stop: 03/16/23 00:13 Lorazepam (Lorazepam 2 Mg/1 Ml Vial) 1 mg IV UD PRN; Protocol PRN Reason: EtOH Withdrawal AWSS Score 6,7 Stop: 03/16/23 00:13 Multivitamins (Multivitamin Tab) 1 tab PO QAM [facility] Stop: 03/16/23 08:59 Last Admin: 02/15/23 08:20 Dose: 1 tab Oxycodone HCl (Oxycodone Hcl Ir 5 Mg Tab (Immediate Release)) 5 mg PO Q4H PRN PRN Reason: Pain Stop: 02/28/23 02:01 Potassium Chloride (Potassium Chloride Crtab 20 Meq Tabcr) 20 meq PO BID [facility] Stop: 03/17/23 20:59 Prednisolone Sodium Phosphate (Prednisolone Sod Phosphate 15 Mg/5 Ml) 40 mg PO DAILY [facility] Stop: 03/17/23 08:59 Last Admin: 02/15/23 08:21 Dose: 40 mg Spironolactone (Spironolactone 100 Mg Tab) 100 mg PO [facility] Stop: 03/17/23 08:59 Last Admin: 02/15/23 08:19 Dose: 100 mg Thiamine HCl (Thiamine Hcl 100 Mg Tab) 100 mg PO [facility] Stop: 03/16/23 08:59 Last Admin: 02/15/23 08:20 Dose: 100 mg
[2023-02-15] MEDS: POTASSIUM CHLORIDE CRTAB 20 MEQ TABCR PO SCH (21:01)
--- NOTE | 2023-02-15 22:13 | Electrocardiogram Report ---
Test Reason : Blood Pressure : / mmHG Vent. Rate : 101 BPM Atrial Rate : 101 BPM P-R Int : 142 ms QRS Dur : 098 ms QT Int : 436 ms P-R-T Axes : 055 035 034 degrees QTc Int : 565 ms Sinus tachycardia Prolonged QT Abnormal ECG When compared with ECG of 29-SEP-2017 19:35, QT has lengthened Confirmed by Casey Cruz ([id number]) on 02/15/2023 10:12:40 PM Referred By: REFERRED SELF Confirmed By:Casey Cruz
[2023-02-15] MEDS: cefTRIAXone SODIUM 2,000 MG in DEXTROSE 5% 50 ML IV SCH (22:54)
[2023-02-16] MEDS: ALBUMIN 25% 100 mL 25 GM/100 ML VIAL IV SCH ×2 (02:55→09:17)
[2023-02-16 05:13] LABS: 7-Aminoclonazepam DNR ng/mL (<25); Alpha-Hydroxyalprazolam DNR ng/mL (<25); Alphahydroxymidazolam DNR ng/mL (<50); Alphahydroxytriazolam DNR ng/mL (<50); Amobarbital DNR ng/mL (<100); Amphetamines, Ur NEGATIVE ng/mL (<500); Amphetemines Ur GC/MS DNR ng/mL (<250); Barbiturates, Urine NEGATIVE ng/mL (<300); Benzodiazepines,Ur NEGATIVE ng/mL (<100); Butalbital DNR ng/mL (<100); Cocaine, Urine NEGATIVE ng/mL (<150); Cocaine,Ur GC/MS DNR ng/mL (<100); Codeine DNR ng/mL (<50); Confirmatory Facility DNR; EDDP DNR ng/mL (<100); Hydrocodone DNR ng/mL (<50); Hydromorphone DNR ng/mL (<50); Hydroxyethylflurazepam DNR ng/mL (<50); Lorazepam DNR ng/mL (<50); Methadone, Ur GC/MS NEGATIVE ng/mL (<100); Methadone, Urine DNR ng/mL (<100); Methamphetamine DNR ng/mL (<250); Morphine DNR ng/mL (<50); Norhydrocodone DNR ng/mL (<50); Noroxycodone DNR ng/mL (<50); Opiates, Urine NEGATIVE ng/mL (<100); Oxycodone,Ur Screen NEGATIVE ng/mL (<100); Pentobarbital DNR ng/mL (<100); Phencyclidine, Ur NEGATIVE ng/mL (<25); Phencyclidine,Ur GC/MS DNR ng/mL (<25); Secobarbital DNR ng/mL (<100); THC20, Qual, Urine NEGATIVE ng/mL (<20); Temazepam DNR ng/mL (<50); Tetrahydrocannabinol DNR ng/mL (<5)
[2023-02-16 06:59] LABS: Basophils # (auto) 0.04 K/uL (0-0.2); Basophils % (auto) 0.5 %; Eosinophils % (auto) 1.2 %; Hematocrit (blood only) 32.2 % (42.0-52.0); Hemoglobin 11.5 g/dl (14.0-18.0); Immature Granulocytes # (auto) 0.17 K/uL (0.01-0.20); Lymphocytes % (auto) 11.9 %; Mean Corpuscular Hemoglobin 36.5 pg (25.0-34.0); Mean Corpuscular Hgb Conc 35.7 g/dL (32.0-36.0); Mean Corpuscular Volume 102.2 fL (80.0-100.0); Mean Platelet Volume 9.5 fL (9.4-12.4); Monocytes # (auto) 0.71 K/uL (0.11-0.59); Monocytes % (auto) 8.5 %; Neutrophils # (auto) 6.35 K/uL (1.40-6.50); Neutrophils % (auto) 75.9 %; Platelet Count 60 K/uL (130-400); RDW Coefficient of Variation 18.9 % (11.5-14.5); RDW Standard Deviation 70.8 fL (36.4-46.3); Red Blood Count 3.15 M/uL (4.70-6.10); White Blood Count 8.37 K/ul (4.8-10.8)
[2023-02-16 07:02] LABS: Reference Quest Test 1 REPORT; Reference Quest Test 2 REPORT; Reference Quest Test 3 REPORT
[2023-02-16 07:03] LABS: INR 2.1 (0.9-1.1); Prothrombin Time 21.8 Seconds (9.0-12.0)
[2023-02-16 07:14] LABS: Magnesium 2.4 mg/dl (1.7-2.4)
[2023-02-16 07:16] LABS: Blood Urea Nitrogen 12 mg/dl (6-23)
[2023-02-16 07:18] LABS: Alanine Aminotransferase 52 U/L (7-52); Albumin Level 3.2 gm/dl (3.4-5.0); Anion Gap 8 (3-11); Aspartate Aminotransferase 85 U/L (13-39); Bilirubin,Total 32.1 mg/dl (0.2-1.0); Carbon Dioxide 27 mmol/L (21-32); Chloride 99 mmol/L (98-107); Globulin 3.1 gm/dl (2.5-4.0); Glucose 96 mg/dl (70-99(Fasting)); Phosphorus 1.8 mg/dl (2.5-4.9); Potassium 2.9 mmol/L (3.5-5.1); Sodium 134 mmol/L (136-145); Total Protein 6.3 gm/dl (6.0-8.3)
[2023-02-16] MEDS ORDERED: POTASSIUM PHOS 3 MMOL/1 ML INFUSION IV STA (08:05)
[2023-02-16] MEDS ORDERED: POTASSIUM CHLORIDE CRTAB 20 MEQ TABCR PO STA (08:05)
[2023-02-16] MEDS ORDERED: POTASSIUM PHOSPHATE 30 MMOL in SODIUM CHLORIDE 0.9% 500 ML IV ONE (08:15)
[2023-02-16] MEDS: SPIRONOLACTONE 100 MG TAB PO SCH (09:08)
[2023-02-16] MEDS: FOLIC ACID 1 MG TAB PO SCH (09:08)
[2023-02-16] MEDS: FUROSEMIDE 40 MG TAB PO SCH (09:08)
[2023-02-16] MEDS: POTASSIUM CHLORIDE CRTAB 20 MEQ TABCR PO SCH ×2 (09:08→20:53)
[2023-02-16] MEDS: MULTIVITAMIN TAB PO SCH (09:08)
[2023-02-16] MEDS: THIAMINE HCL 100 MG TAB PO SCH (09:08)
[2023-02-16] MEDS: prednisoLONE sod phosphate 15 MG/5 ML PO SCH (09:09)
--- NOTE | 2023-02-16 10:34 | Gastroenterology Progress Note ---
Date of Service February 16, 2023 Assessment & Plan (1) Decompensated hepatic cirrhosis: (2) Alcoholic hepatitis: Plan: Pt is a 37 yo male w hx of ETOH cirrhosis w ongoing ETOH, tobacco abuses, admitted for decompensated cirrhosis w ascites, and ETOH hepatitis. MELD 32, Maddreys Discriminant Function score 74. - 21hr NAC protocol completed - Prednisolone 40mg daily x 28 days before tapering ; check Lille score at day 7 after starting steroids to determine if pt responding to glucocorticoid therapy - F/U Urine toxicology - 2g Na, 1800 fluid restriction; continue current diuretics - Electrolyte correction per primary team - Monitor mental status, renal and coag functions daily - ETOH cessation recommended. He refused rehab and counseling. - Will arrange OP GI/Hepatology f/u upon DC Admission and Anticipated Discharge Date Admission Date: February 14, 2023 Supervising Physician Co-Signing Physician Notes Patient was seen and examined with DORIS Jimenez whose note reflects our findings and plan. Subjective Pt reports he is eating well, no abd pain, n/v. BM this morning wo signs of rectal bleeding, or melena. Review of Systems Review of Systems: All systems reviewed & are unremarkable except as noted in HPI & below Physical Exam Constitutional: WD/WN, vitals as above well groomed, cooperative and comfortable Eyes: + scleral abnormality (icterus), PERRL and EOM intact bilaterally ENMT: external ear and nose normal, oropharynx normal Respiratory: normal respiratory effort, lungs clear to auscultation Cardiovascular: RRR, no murmur, no edema Gastrointestinal (Abdomen): normal bowel sounds, soft, nontender, no hepatosplenomegaly Skin: no rashes, warm and dry + jaundice Neurologic: Motor/Sensory: no asterixis Psychiatric: A+Ox3, euthymic affect Lymphatic: no lymphedema Results & Data Vital Signs (Past 12 Hours) Vital Signs Temp Pulse Pulse Resp BP Pulse Ox Pulse Ox 02/16/23 08:00 97 H 02/16/23 08:00 36.9 C 88 16 115/73 97 02/16/23 02:00 97 02/16/23 03:14 37.0 C 97 H 17 100/62 92 02/16/23 00:00 107 H 02/15/23 23:08 37.1 C 76 17 108/62 93 O2 Del Method O2 Del Method 02/16/23 08:00 02/16/23 08:00 Room Air 02/16/23 02:00 Room Air 02/16/23 03:14 Room Air 02/16/23 00:00 02/15/23 23:08 Room Air
[2023-02-16] MEDS ORDERED: PHYTONADIONE 10 MG in DEXTROSE 5% 50 ML IV ONE (11:15)
[2023-02-16] MEDS: PANTOprazole 40 MG in SYRINGE 0 ML IV SCH ×2 (11:29→20:53)
[2023-02-16] MEDS: GABAPENTIN 600 MG TAB PO SCH (11:30)
--- NOTE | 2023-02-16 12:32 | Hospitalist Progress Note ---
Date of Service February 16, 2023 Assessment & Plan (1) Decompensated hepatic cirrhosis: Plan: hx alcoholic cirrhosis Possible SBP-ruled out, possible sepsis given elevated procalcitonin Has been on intravenous ceftriaxone Appreciate GI input and recommendation Will have paracentesis this afternoon We will continue current antibiotic Blood cultures have been negative and will discontinue the antibiotic Abdominal symptoms are improved Remains stable otherwise weakness and tiredness Alcoholic hepatitis, poor prognosis with Maddrey's DF score of 81.4 points Appreciate GI input and recommendation Started on oral prednisone We will continue prednisone as advised Total bilirubin remains very high at 28.2 Total bilirubin remains high with high INR We will continue prednisone as per GI and will have an outpatient appointment with ornamental iron worker helper/senior software quality engineer He will be getting prednisone 40 mg daily for 28 days before tapering Advised to have a lille score after 7 days Anemia secondary to possible UGIB History GERD/esophageal varices Dark brown stool noted to be heme positive IV PPI for UGIB Follow H&H, transfuse PRBC if hemoglobin less than 7 and or for symptomatic anemia No plan for endoscopy as per GI Hemoglobin remains stable and dropped to 10.4 from 13.1 on admission Hemoglobin remains stable at 11.5 today that is 02/16/2023 Alcohol withdrawal, patient noted to be tremulous on exam BRANDIE S, DT precautions Strongly advised to quit drinking Severe electrolyte imbalance Hyponatremia secondary to decompensated cirrhosis Hypokalemia secondary to home diuretic Rx Careful correction of sodium, hyponatremia work-up, recheck sodium after initial boluses given at the ER Hypophosphatemia Replace electrolytes Monitor PRP and phosphate-replaced again today and will monitor Coagulopathy/ 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 SCDs Re: GI bleed, thrombocytopenia INR remains elevated at 2.2 Full code Admission and Anticipated Discharge Date Admission Date: February 14, 2023 Subjective 02/14/2023 The patient was seen and examined in telemetry unit He has been complaining of abdominal discomfort and distention with nausea Denies any other symptoms except weakness Will have paracentesis this afternoon 02/15/2023 The patient was seen and examined in telemetry unit He remains weak and lethargic and deeply jaundiced Denies any fever and or chills, no nausea no vomiting Abdominal distention is improved 02/16/2023 The patient was seen and examined in telemetry unit He remains weak and lethargic but denies any other significant symptoms He does have significant electrolyte abnormality which is being replaced and monitored He wants to go home tomorrow Will have PT and OT evaluation prior to discharge Review of Systems Review of Systems: All systems reviewed and are unremarkable except as noted below Physical Exam Physical Exam: Lying in bed with some discomfort Constitutional: well developed, well nourished, + ill appearing and + obese Eyes: PERRL, conjunctivae normal, anicteric sclerae ENMT: external ear and nose normal, oropharynx normal Neck: trachea midline, no thyromegaly Respiratory: no respiratory distress Auscultation: + diminished lung sounds and + crackles (Minimal crackles at the bases) Cardiovascular: Rate/Rhythm: regular rate, regular rhythm and + tachycardic Heart Sounds: normal S1 and normal S2; no murmur Extremities: + edema (1-2+ edema bilaterally) Gastrointestinal (Abdomen): Inspection/Auscultation: + abdomen distended and normal bowel sounds Percussion/Palpation: + abdomen tender and abdomen soft Musculoskeletal: No acute arthritis involving any of the joint Neurologic: normal touch/pain/proprioception and moves all extremities; no focal motor deficits Lymphatic: no cervical or axillary lymphadenopathy Results & Data Results & Data Vital Signs (Past 12 Hours) Vital Signs Temp Pulse Pulse Resp BP Pulse Ox Pulse Ox 02/16/23 08:00 97 H 02/16/23 08:00 36.9 C 88 16 115/73 97 02/16/23 02:00 97 02/16/23 03:14 37.0 C 97 H 17 100/62 92 O2 Del Method O2 Del Method 02/16/23 08:00 02/16/23 08:00 Room Air 02/16/23 02:00 Room Air 02/16/23 03:14 Room Air Laboratory Results Short CBC 02/16/23 Range/Units 06:24 WBC 8.37 (4.8-10.8) K/ul Hgb 11.5 L (14.0-18.0) g/dl Hct 32.2 L (42.0-52.0) % Plt Count 60 L (130-400) K/uL BMP 02/16/23 06:24 Sodium 134 L Potassium 2.9 L Chloride 99 Carbon Dioxide 27 BUN 12 Creatinine TNP Glucose 96 Calcium 8.0 L Liver Function 02/16/23 Range/Units 06:24 Total Bilirubin 32.1 H (0.2-1.0) mg/dl AST 85 H (13-39) U/L ALT 52 (7-52) U/L Alkaline Phosphatase TNP Albumin 3.2 L (3.4-5.0) gm/dl Medications Administered Current Inpatient Medications Acetaminophen (Acetaminophen 325 Mg Tab) 325 mg PO Q6H PRN PRN Reason: Mild Pain (Scale 1, 2, 3) Stop: 03/16/23 02:01 Folic Acid (Folic Acid 1 Mg Tab) 1 mg PO [facility] Stop: 03/16/23 08:59 Last Admin: 02/16/23 09:08 Dose: 1 mg Furosemide (Furosemide 40 Mg Tab) 40 mg PO [facility] Stop: 03/17/23 08:59 Last Admin: 02/16/23 09:08 Dose: 40 mg Gabapentin (Gabapentin 600 Mg Tab) 600 mg PO Q24H [facility] Stop: 02/17/23 12:01 Pantoprazole Sodium 40 mg/ (Syringe) 10 mls @ 5 mls/min IV BID [facility] Stop: 03/16/23 08:59 Last Admin: 02/16/23 11:29 Dose: 5 mls/min Promethazine HCl 12.5 mg/ (Sodium Chloride) 50.5 mls @ 202 mls/hr IV Q6H PRN PRN Reason: Nausea And Vomiting Stop: 03/16/23 02:01 Potassium Phosphate 30 mmol/ (Sodium Chloride) 510 mls @ 88 mls/hr IV ONE ONE Stop: 02/16/23 14:02 Last Admin: 02/16/23 09:07 Dose: 88 mls/hr Lorazepam (Lorazepam 2 Mg/1 Ml Vial) 3 mg IV ONCE PRN; Protocol PRN Reason: EtOH Withdrawal AWSS Score 10+ Lorazepam (Lorazepam 2 Mg/1 Ml Vial) 2 mg IV UD PRN; Protocol PRN Reason: EtOH Withdrawal AWSS Score 8,9 Stop: 03/16/23 00:13 Lorazepam (Lorazepam 2 Mg/1 Ml Vial) 1 mg IV UD PRN; Protocol PRN Reason: EtOH Withdrawal AWSS Score 6,7 Stop: 03/16/23 00:13 Multivitamins (Multivitamin Tab) 1 tab PO [facility] Stop: 03/16/23 08:59 Last Admin: 02/16/23 09:08 Dose: 1 tab Oxycodone HCl (Oxycodone Hcl Ir 5 Mg Tab (Immediate Release)) 5 mg PO Q4H PRN PRN Reason: Pain Stop: 02/28/23 02:01 Potassium Chloride (Potassium Chloride Crtab 20 Meq Tabcr) 20 meq PO BID [facility] Stop: 03/17/23 20:59 Last Admin: 02/16/23 09:08 Dose: 20 meq Prednisolone Sodium Phosphate (Prednisolone Sod Phosphate 15 Mg/5 Ml) 40 mg PO DAILY [facility] Stop: 03/17/23 08:59 Last Admin: 02/16/23 09:09 Dose: 40 mg Spironolactone (Spironolactone 100 Mg Tab) 100 mg PO QAM [facility] Stop: 03/17/23 08:59 Last Admin: 02/16/23 09:08 Dose: 100 mg Thiamine HCl (Thiamine Hcl 100 Mg Tab) 100 mg PO QAM [facility] Stop: 03/16/23 08:59 Last Admin: 02/16/23 09:08 Dose: 100 mg
[2023-02-17 02:47] LABS: Reference Quest Test 1 REPORT; Reference Quest Test 2 REPORT
[2023-02-17 06:53] LABS: Basophils # (auto) 0.02 K/uL (0-0.2); Basophils % (auto) 0.3 %; Eosinophils # (auto) 0.18 K/uL (0-0.50); Eosinophils % (auto) 2.5 %; Hematocrit (blood only) 29.1 % (42.0-52.0); Hemoglobin 10.2 g/dl (14.0-18.0); Immature Granulocytes # (auto) 0.16 K/uL (0.01-0.20); Immature Granulocytes % (auto) 2.2 %; Lymphocytes # (auto) 0.87 K/uL (1.2-3.4); Mean Corpuscular Hemoglobin 36.7 pg (25.0-34.0); Mean Corpuscular Hgb Conc 35.1 g/dL (32.0-36.0); Mean Corpuscular Volume 104.7 fL (80.0-100.0); Mean Platelet Volume 10.5 fL (9.4-12.4); Monocytes # (auto) 0.87 K/uL (0.11-0.59); Neutrophils # (auto) 5.16 K/uL (1.40-6.50); Platelet Count 53 K/uL (130-400); RDW Coefficient of Variation 18.5 % (11.5-14.5); RDW Standard Deviation 70.9 fL (36.4-46.3); Red Blood Count 2.78 M/uL (4.70-6.10); White Blood Count 7.26 K/ul (4.8-10.8)
[2023-02-17 08:53] LABS: Alanine Aminotransferase 48 U/L (7-52); Albumin Globulin Ratio 1.1 (0.9-2); Albumin Level 2.8 gm/dl (3.4-5.0); Anion Gap 6 (3-11); Aspartate Aminotransferase 71 U/L (13-39); Bilirubin,Total 24.6 mg/dl (0.2-1.0); Calcium 7.5 mg/dl (8.6-10.3); Carbon Dioxide 29 mmol/L (21-32); Chloride 100 mmol/L (98-107); Globulin 2.6 gm/dl (2.5-4.0); Glucose 60 mg/dl (70-99(Fasting)); Phosphorus 1.8 mg/dl (2.5-4.9); Sodium 135 mmol/L (136-145); Total Protein 5.4 gm/dl (6.0-8.3)
[2023-02-17] MEDS ORDERED: POTASSIUM PHOS 3 MMOL/1 ML INFUSION IV STA (08:56)
[2023-02-17] MEDS ORDERED: POT PHOSPHATE MONOBASIC W/ SOD TAB PO SCH (09:00)
[2023-02-17] MEDS: FUROSEMIDE 40 MG TAB PO SCH (09:04)
[2023-02-17] MEDS: FOLIC ACID 1 MG TAB PO SCH (09:04)
[2023-02-17] MEDS: prednisoLONE sod phosphate 15 MG/5 ML PO SCH (09:04)
[2023-02-17] MEDS: SPIRONOLACTONE 100 MG TAB PO SCH (09:05)
[2023-02-17] MEDS: POTASSIUM CHLORIDE CRTAB 20 MEQ TABCR PO SCH (09:06)
[2023-02-17] MEDS: MULTIVITAMIN TAB PO SCH (09:06)
[2023-02-17] MEDS: THIAMINE HCL 100 MG TAB PO SCH (09:07)
[2023-02-17] MEDS: PANTOprazole 40 MG in SYRINGE 0 ML IV SCH (09:09)
[2023-02-17] MEDS ORDERED: POTASSIUM PHOSPHATE 21 MMOL in SODIUM CHLORIDE 0.9% 500 ML IV ONE (09:30)
--- NOTE | 2023-02-17 10:24 | Gastroenterology Progress Note ---
Date of Service February 17, 2023 Assessment & Plan (1) Decompensated hepatic cirrhosis: (2) Alcoholic hepatitis: Plan: Pt is a 37 yo male w hx of ETOH cirrhosis w ongoing ETOH, tobacco abuses, admitted for decompensated cirrhosis w ascites, and ETOH hepatitis. MELD 32, Maddreys Discriminant Function score 74. US guided paracentesis on 02/14 wo sign of SBP. Tbili is starting to decrease now. - 21hr NAC protocol completed - Prednisolone 40mg daily ; check Lille score at day 7 after starting steroids to determine if pt responding to glucocorticoid therapy - 2g Na, 1800 fluid restriction; continue current diuretics - Electrolyte correction per primary team - Monitor mental status, renal and coag functions daily - ETOH cessation recommended. He refused rehab and counseling. - Will arrange OP GI/Hepatology f/u upon DC - GI to sign off; pls recall prn Admission and Anticipated Discharge Date Admission Date: February 14, 2023 Supervising Physician Co-Signing Physician Notes I have seen and examined the patient with DORIS Jimenez whose note reflects our findings and plan. Subjective Patient had an uneventful night, denies any chest pain, shortness of breath, abdominal pain, nausea or vomiting Review of Systems Review of Systems: All systems reviewed & are unremarkable except as noted in HPI & below Physical Exam Constitutional: WD/WN, vitals as above well groomed, cooperative and comfortable Eyes: + scleral abnormality (icterus), PERRL and EOM intact bilaterally ENMT: external ear and nose normal, oropharynx normal Respiratory: normal respiratory effort, lungs clear to auscultation Cardiovascular: RRR, no murmur, no edema Gastrointestinal (Abdomen): Mild distension, non tender, BS present Skin: no rashes, warm and dry + jaundice Psychiatric: A+Ox3, euthymic affect Lymphatic: no lymphedema Results & Data Vital Signs (Past 12 Hours) Vital Signs Temp Pulse Pulse Resp BP Pulse Ox Pulse Ox 02/17/23 08:21 36.7 C 94 H 18 147/66 H 95 02/17/23 07:46 105 H 02/17/23 03:39 37.2 C 83 17 115/53 L 97 02/17/23 02:00 97 02/17/23 00:00 36.9 C 82 18 120/62 96 02/16/23 23:02 94 H O2 Del Method O2 Del Method 02/17/23 08:21 Room Air 02/17/23 07:46 02/17/23 03:39 Room Air 02/17/23 02:00 Room Air 02/17/23 00:00 Room Air 02/16/23 23:02
--- NOTE | 2023-02-17 11:07 | Hospitalist Progress Note ---
Date of Service February 17, 2023 Assessment & Plan (1) Decompensated hepatic cirrhosis: Plan: hx alcoholic cirrhosis Possible SBP-ruled out, possible sepsis given elevated procalcitonin Has been on intravenous ceftriaxone Appreciate GI input and recommendation Will have paracentesis this afternoon We will continue current antibiotic Blood cultures have been negative and will discontinue the antibiotic Abdominal symptoms are improved Remains stable otherwise weakness and tiredness He will have appointment with the [facility] GI as an outpatient for his alcoholic cirrhosis Alcoholic hepatitis, poor prognosis with Maddrey's DF score of 81.4 points Appreciate GI input and recommendation Started on oral prednisone We will continue prednisone as advised Total bilirubin remains very high at 28.2 Total bilirubin remains high with high INR We will continue prednisone as per GI and will have an outpatient appointment with edge bander operator/cardio tech He will be getting prednisone 40 mg daily for 28 days before tapering Advised to have a lille score after 7 days He wants to go home this afternoon even though his electrolytes are not yet normal He was warned against possible side effect of weakness and tiredness, arrhythmias, falls from those low electrolytes He will be discharged home this afternoon Anemia secondary to possible UGIB History GERD/esophageal varices Dark brown stool noted to be heme positive IV PPI for UGIB Follow H&H, transfuse PRBC if hemoglobin less than 7 and or for symptomatic anemia No plan for endoscopy as per GI Hemoglobin remains stable and dropped to 10.4 from 13.1 on admission Hemoglobin remains stable at 11.5 today that is 02/16/2023 Hemoglobin remains stable Alcohol withdrawal, patient noted to be tremulous on exam BRANDIE S, DT precautions Strongly advised to quit drinking No symptoms of withdrawal Severe electrolyte imbalance Hyponatremia secondary to decompensated cirrhosis Hypokalemia secondary to home diuretic Rx Careful correction of sodium, hyponatremia work-up, recheck sodium after initial boluses given at the ER Hypophosphatemia Replace electrolytes Monitor PRP and phosphate-replaced again today and will monitor Additional supplement of potassium and phosphate was given today and he will have oral replacement Check electrolytes within 7 days at doctor's office Coagulopathy/ 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 SCDs Re: GI bleed, thrombocytopenia INR remains elevated at 2.2 Full code Admission and Anticipated Discharge Date Admission Date: February 14, 2023 Subjective 02/14/2023 The patient was seen and examined in telemetry unit He has been complaining of abdominal discomfort and distention with nausea Denies any other symptoms except weakness Will have paracentesis this afternoon 02/15/2023 The patient was seen and examined in telemetry unit He remains weak and lethargic and deeply jaundiced Denies any fever and or chills, no nausea no vomiting Abdominal distention is improved 02/16/2023 The patient was seen and examined in telemetry unit He remains weak and lethargic but denies any other significant symptoms He does have significant electrolyte abnormality which is being replaced and monitored He wants to go home tomorrow Will have PT and OT evaluation prior to discharge 02/17/2023 The patient was seen and examined in telemetry unit He does not have any significant symptoms except weakness He has a physical therapy and recommended home He still has electrolyte imbalance but he wants to go home today given his risk of having problems secondary to electrical abnormality Review of Systems Review of Systems: All systems reviewed and are unremarkable except as noted below Physical Exam Physical Exam: Lying in bed with some discomfort Constitutional: well developed, well nourished, + ill appearing and + obese Eyes: PERRL, conjunctivae normal, anicteric sclerae ENMT: external ear and nose normal, oropharynx normal Neck: trachea midline, no thyromegaly Respiratory: no respiratory distress Auscultation: + diminished lung sounds and + crackles (Minimal crackles at the bases) Cardiovascular: Rate/Rhythm: regular rate, regular rhythm and + tachycardic Heart Sounds: normal S1 and normal S2; no murmur Extremities: + edema (1-2+ edema bilaterally) Gastrointestinal (Abdomen): Inspection/Auscultation: + abdomen distended and normal bowel sounds Percussion/Palpation: + abdomen tender and abdomen soft Musculoskeletal: No acute arthritis involving any of the joints Neurologic: normal touch/pain/proprioception and moves all extremities; no focal motor deficits Lymphatic: no cervical or axillary lymphadenopathy Results & Data Results & Data Vital Signs (Past 12 Hours) Vital Signs Temp Pulse Pulse Resp BP Pulse Ox Pulse Ox 02/17/23 08:21 36.7 C 94 H 18 147/66 H 95 02/17/23 07:46 105 H 02/17/23 03:39 37.2 C 83 17 115/53 L 97 02/17/23 02:00 97 02/17/23 00:00 36.9 C 82 18 120/62 96 O2 Del Method O2 Del Method 02/17/23 08:21 Room Air 02/17/23 07:46 02/17/23 03:39 Room Air 02/17/23 02:00 Room Air 02/17/23 00:00 Room Air Laboratory Results Short CBC 02/17/23 Range/Units 05:45 WBC 7.26 (4.8-10.8) K/ul Hgb 10.2 L (14.0-18.0) g/dl Hct 29.1 L (42.0-52.0) % Plt Count 53 L (130-400) K/uL BMP 02/17/23 05:45 Sodium 135 L Potassium 3.0 L Chloride 100 Carbon Dioxide 29 BUN TNP Creatinine TNP Glucose 60 L Calcium 7.5 L Liver Function 02/17/23 Range/Units 05:45 Total Bilirubin 24.6 H (0.2-1.0) mg/dl AST 71 H (13-39) U/L ALT 48 (7-52) U/L Alkaline Phosphatase TNP Albumin 2.8 L (3.4-5.0) gm/dl Medications Administered Current Inpatient Medications Acetaminophen (Acetaminophen 325 Mg Tab) 325 mg PO Q6H PRN PRN Reason: Mild Pain (Scale 1, 2, 3) Stop: 03/16/23 02:01 Folic Acid (Folic Acid 1 Mg Tab) [facility] [place] [facility]: 03/16/23 08:59 Last Admin: 02/17/23 09:04 Dose: 1 mg Furosemide (Furosemide 40 Mg Tab) 40 mg PO QAM [facility] Stop: 03/17/23 08:59 Last Admin: 02/17/23 09:04 Dose: 40 mg Gabapentin (Gabapentin 600 Mg Tab) 600 mg PO Q24H [facility] Stop: 02/17/23 12:01 Pantoprazole Sodium 40 mg/ (Syringe) 10 mls @ 5 mls/min IV BID [facility] Stop: 03/16/23 08:59 Last Admin: 02/17/23 09:09 Dose: 5 mls/min Promethazine HCl 12.5 mg/ (Sodium Chloride) 50.5 mls @ 202 mls/hr IV Q6H PRN PRN Reason: Nausea And Vomiting Stop: 03/16/23 02:01 Potassium Phosphate 21 mmol/ (Sodium Chloride) 507 mls @ 88 mls/hr IV ONE ONE Stop: 02/17/23 15:15 Last Admin: 02/17/23 10:06 Dose: 88 mls/hr Lorazepam (Lorazepam 2 Mg/1 Ml Vial) 3 mg IV ONCE PRN; Protocol PRN Reason: EtOH Withdrawal AWSS Score 10+ Lorazepam (Lorazepam 2 Mg/1 Ml Vial) 2 mg IV UD PRN; Protocol PRN Reason: EtOH Withdrawal AWSS Score 8,9 Stop: 03/16/23 00:13 Lorazepam (Lorazepam 2 Mg/1 Ml Vial) 1 mg IV UD PRN; Protocol PRN Reason: EtOH Withdrawal AWSS Score 6,7 Stop: 03/16/23 00:13 Multivitamins (Multivitamin Tab) 1 tab PO QAM [facility] Stop: 03/16/23 08:59 Last Admin: 02/17/23 09:06 Dose: 1 tab Oxycodone HCl (Oxycodone Hcl Ir 5 Mg Tab (Immediate Release)) 5 mg PO Q4H PRN PRN Reason: Pain Stop: 02/28/23 02:01 Potassium Chloride (Potassium Chloride Crtab 20 Meq Tabcr) 20 meq PO BID [facility] Stop: 03/17/23 20:59 Last Admin: 02/17/23 09:06 Dose: 20 meq Potassium Phosphate (Pot Phosphate Monobasic W/ Sod Tab) 2 tab PO TID [facility] Stop: 03/19/23 08:59 Last Admin: 02/17/23 10:05 Dose: 2 tab Prednisolone Sodium Phosphate (Prednisolone Sod Phosphate 15 Mg/5 Ml) 40 mg PO DAILY [facility] Stop: 03/17/23 08:59 Last Admin: 02/17/23 09:04 Dose: 40 mg Spironolactone (Spironolactone 100 Mg Tab) 100 mg PO QAM [facility] Stop: 03/17/23 08:59 Last Admin: 02/17/23 09:05 Dose: 100 mg Thiamine HCl (Thiamine Hcl 100 Mg Tab) 100 mg PO QAM [facility] Stop: 03/16/23 08:59 Last Admin: 02/17/23 09:07 Dose: 100 mg
[2023-02-17] MEDS ORDERED: GABAPENTIN 600 MG TAB PO SCH (12:00)
[2023-02-18 02:47] LABS: Reference Quest Test 1 REPORT; Reference Quest Test 2 REPORT; Reference Quest Test 3 REPORT
--- NOTE | 2023-02-18 08:41 | Discharge Summary ---
Date of Service February 17, 2023 Admission HPI Per Admitting Provider Chief Complaint: Abdominal distention, jaundice Primary Care Provider: Dr. Muniz (Patient has not met provider.) History obtained from patient and records. Medical history significant for alcoholic cirrhosis, history esophageal varices, history SBP, GERD, past history DVT status post Coumadin, chronic thrombocytopenia, ongoing alcohol abuse, past tobacco abuse. Last confinement August 2022 for alcoholic hepatitis. Patient unable to follow-up with PCP and specialists after he broke his left ankle from a fall last September. No surgical intervention. Patient noted increasing abdominal distention and discomfort the last few days without fever, chills. Patient compliant with home diuretic Rx. No chest pain, no SOB, no headache. Denies emesis, black or bloody stools. Trying to cut down on drinking, claims last drink was 2 weeks ago. Jaundice noted at home the last 2 days. Patient consulted ER for evaluation. Admission Exam Per Admitting Provider Physical Exam: GENERAL: Slightly uncomfortable, tremulous, no respiratory distress SKIN: jaundiced, spider angiomata noted over trunk, warm HEENT: Pale palpebral conjunctivae, anicteric sclerae, no ptosis, dry buccal mucosa NECK : Supple, no tenderness CHEST : CTA, no tenderness HEART : RRR, no obvious murmurs ABDOMEN: Abdominal distention, no overt tenderness RECTAL : Intact sphincter, dark brown stool (FOBT positive) EXTREMITIES : Minimal LE swelling, no LE tenderness, no other conspicuous deformities noted NEUROLOGIC : Coherent, no facial asymmetry, tremulous, no other gross focality Principal Diagnosis Alcoholic hepatitis, decompensated cirrhosis, electrolyte imbalance Discharge Exam Lying in bed with some discomfort Constitutional well developed, well nourished, + ill appearing and + obese Eyes PERRL, conjunctivae normal, anicteric sclerae ENMT external ear and nose normal, oropharynx normal Neck trachea midline, no thyromegaly Respiratory no respiratory distress Auscultation: + diminished lung sounds and + crackles (Minimal crackles at the bases) Cardiovascular Rate/Rhythm: regular rate, regular rhythm and + tachycardic Heart Sounds: normal S1 and normal S2; no murmur Extremities: + edema (1-2+ edema bilaterally) Gastrointestinal (Abdomen) Inspection/Auscultation: + abdomen distended and normal bowel sounds Percussion/Palpation: + abdomen tender and abdomen soft Neurologic normal touch/pain/proprioception and moves all extremities; no focal motor deficits Lymphatic no cervical or axillary lymphadenopathy Discharge Data Allergies Allergy/AdvReac Type Severity Reaction Status Date / Time acetaminophen Allergy Intermediate ELEVATED Verified 02/13/23 19:30 FEVER amoxicillin Allergy Intermediate UNKNOWN Verified 02/13/23 19:30 Penicillins Allergy Intermediate UNKNOWN Verified 02/13/23 19:30 Consultations 02/13/23 22:48 ED Decision to Admit Stat 02/14/23 02:02 Consult Gastroenterology Routine Ordered Studies 02/13/23 19:14 CT abd pelvis IV con only Stat 02/14/23 08:00 IR paracentesis abd w/img US Routine Hospital Course (1) Decompensated hepatic cirrhosis: hx alcoholic cirrhosis Possible SBP-ruled out, possible sepsis given elevated procalcitonin Has been on intravenous ceftriaxone Appreciate GI input and recommendation Will have paracentesis this afternoon We will continue current antibiotic Blood cultures have been negative and will discontinue the antibiotic Abdominal symptoms are improved Remains stable otherwise weakness and tiredness He will have appointment with the [facility] GI as an outpatient for his alcoholic cirrhosis Alcoholic hepatitis, poor prognosis with Maddrey's DF score of 81.4 points Appreciate GI input and recommendation Started on oral prednisone We will continue prednisone as advised Total bilirubin remains very high at 28.2 Total bilirubin remains high with high INR We will continue prednisone as per GI and will have an outpatient appointment with bpm architect/supervisor aircraft cleaning He will be getting prednisone 40 mg daily for 28 days before tapering Advised to have a lille score after 7 days He wants to go home this afternoon even though his electrolytes are not yet normal He was warned against possible side effect of weakness and tiredness, arrhythmias, falls from those low electrolytes He will be discharged home this afternoon Anemia secondary to possible UGIB History GERD/esophageal varices Dark brown stool noted to be heme positive IV PPI for UGIB Follow H&H, transfuse PRBC if hemoglobin less than 7 and or for symptomatic anemia No plan for endoscopy as per GI Hemoglobin remains stable and dropped to 10.4 from 13.1 on admission Hemoglobin remains stable at 11.5 today that is 02/16/2023 Hemoglobin remains stable Alcohol withdrawal, patient noted to be tremulous on exam BRANDIE S, DT precautions Strongly advised to quit drinking No symptoms of withdrawal Severe electrolyte imbalance Hyponatremia secondary to decompensated cirrhosis Hypokalemia secondary to home diuretic Rx Careful correction of sodium, hyponatremia work-up, recheck sodium after initial boluses given at the ER Hypophosphatemia Replace electrolytes Monitor PRP and phosphate-replaced again today and will monitor Additional supplement of potassium and phosphate was given today and he will have oral replacement Check electrolytes within 7 days at doctor's office Coagulopathy/ 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 SCDs Re: GI bleed, thrombocytopenia INR remains elevated at 2.2 Full code Total Time Total Time Spent Total Time Spent (In Minutes): 35 minutes Discharge Plan Discharge Items Patient Disposition: Home - Self-Care Reason For Visit: ETOH WITHDRAWAL, DECOMP CIRRHOSIS Discharge Diagnosis: Alcoholic hepatitis, decompensated cirrhosis, electrolyte imbalance Condition on Discharge: Fair Activity: Resume your previous activity Non-emergency contact: Primary Care Provider Call non-emergency contact if: you have any medication questions and your symptoms worsen Follow-up/Referrals: Adan Muniz MD [Hospitalist] - (Date & Time 02/21/2023 1:00 PM Provider Adan Muniz MD Department Family Medicine [facility] ) Diet: Regular and Low Sodium (2gm) Addtl Attending Provider Instructions: Please take precautions to avoid falls Take your medications as advised Please keep appointment with your healthcare providers Have your electrolytes checked at doctor's office Check Lille score during the doctor,s visit Pending Studies at Discharge: No Stand-Alone Forms: My [facility] [employer] [place] [employer], Smoking Cessation Medications and DC Order Prescriptions: New spironolactone 100 mg Tablet 100 mg PO QAM Qty: 30 0RF furosemide 40 mg Tablet 40 mg PO QAM Qty: 30 0RF potassium chloride 20 mEq Tablet,Er Particles/Crystals 20 meq PO BID 60 Days Qty: 120 0RF Phospha 250 Neutral 250 mg Tablet 2 tab PO TID Qty: 60 0RF folic acid 1 mg Tablet 1 mg PO QAM Qty: 30 0RF thiamine HCl (vitamin B1) 100 mg Tablet 100 mg PO QAM Qty: 30 0RF multivitamin with folic acid [Daily-Paul (with folic acid)] 400 mcg Tablet 1 tab PO QAM Qty: 30 0RF prednisolone 5 mg tablet 40 mg PO DAILY Qty: 192 0RF Discontinued furosemide 20 mg tablet 20 mg PO QAM spironolactone 50 mg tablet 50 mg PO QAM Discharge Orders: Discharge Order (Routine); Ordered 02/17/23 Ordered By: Aubrey Jean Admission Data Admit Date/Time: 02/14/23 00:08 Attending Provider: Aubrey Jean Admit Provider: Douglas Day Primary Care Provider: PCP,NO Other Providers: Douglas Day ; Arash Archuleta ; Brown Hung ; Jaylyn Salter ; Maggy Bello ; Lyly Mcduffie ; Debbie Hansen ; Agustin Espinoza ; Jorge L Lopez ; Letty Boudreaux ; Esther Anaya ; Presley Ribeiro ; Carrie Stewart ; Supriya Birch ; Jeanne Ruiz ; Daysi Meredith ; Danika Pearson ; Jonatan Parra ; Milan Montague ; Isabelle De Guzman ; Areli Summers Jr Other Interventions: Discharge Summary Assessment (RN) Last Done: 02/17/23 11:57
== END 2023-02-17 12:09 | disposition home or self-care (01) | DRG 871 ==
LOC: ED 18:27 → 4W 02-14 00:08

== ENCOUNTER 2023-09-27 13:52 | Inpatient (IN) ==
--- NOTE | 2023-09-27 14:11 | Emergency Department Note ---
Impression & Plan Transaminitis, Jaundice, Serum total bilirubin elevated, Alcoholic hepatitis, Hyponatremia, Hypokalemia, Thrombocytopenia ED Provider Note NAME: BETSY HANSEN AGE: 37 SEX: M : 1985 ARRIVES VIA: Walk-In INFORMANT: [Patient][, ] ED PROVIDER(S): [Layo Jaimes MD] CHIEF COMPLAINT: Abdominal fullness MEDICAL DECISION MAKING: Patient presents due to concern for abdominal fullness in setting of known history of cirrhosis. Patient's blood work showed a white count of 11 with anemia hemoglobin 11.8. This is relatively chronic and stable. Thrombocytopenia of 50,000 which is relatively chronic. Patient with an INR of 2.3 potassium and sodium are low at 2.5 and 119 respectively. Patient did have urine and serum awesome's ordered. The patient's bilirubin is 27 which is not significantly changed from comparisons back in February. Alcohol negative. Given the patient's significant hyponatremia I did speak with the on-call hospitalist service and the patient was admitted to the medicine service. Discussion w/ other healthcare providers: DORIS Milligan and Dr. Garenr Prior /Outside records reviewed: I reviewed discharge summary from 05/21/[address] Jean. The patient had been admitted at that time for alcoholic hepatitis decompensated cirrhosis and electrolyte imbalance. Differential diagnosis: Infection, dehydration, metabolic abnormality, hypo/hyperglycemia, electrolyte imbalance, anemia, UTI, pneumonia, thyroid dysfunction among others were considered. Diagnostics, as interpreted by me: ECG: [none] Cardiac monitoring: An order was placed for continuous cardiac monitoring. The monitor shows a rate of 102 with tachycardic and regular rhythm. [Patient was placed on pulse oximetry] Medical decision rules: [none] Imaging studies: None HPI: Patient presents due to concern for abdominal fullness. The patient does feels that he is gained some weight and had some associated abdominal fullness and does have a known history of cirrhosis and varices. The patient denies any blood in urine or stool. Patient drank glass of wine about 2 weeks ago otherwise no further alcohol use. The patient denies any chest pain shortness of breath no nausea vomiting. The patient states that he is compliant with his medications and does take his diuretics but did miss his most recent GI appointment. The patient is followed primarily with [facility] believes that he last followed with them in July. The patient last had a paracentesis he believes back in February at the time that he was admitted and discharged. Patient does not believe that he has had increasing jaundice. Patient denies any significant abdominal pain. PAST MEDICAL HISTORY: [See Below] PAST SURGICAL HISTORY: [See Below] SOCIAL HISTORY: [See Below] HOME MEDICATIONS: [See Below] ALLERGIES: [See Below] VITALS: [See Below] PHYSICAL EXAMINATION: GENERAL: NAD, non-toxic. EYE EXAM: Scleral icterus noted. PERRL, no anisocoria and EOM's grossly intact w/o pain. OROPHARYNX: Moist mucus membranes, grossly normal dentition. NECK: Supple, no nuchal rigidity, no adenopathy, non-tender. No signs of meningismus. FROM of the neck with good chin to chest and neck extension. No stridor. LUNGS: Clear to auscultation. Normal chest wall mechanics. HEART: NSR, no MRG. ABDOMEN: Abdomen soft, non-tender, no masses, no rebound or guarding. BACK: No CVA TTP. SKIN: Jaundiced. UPPER EXTREMITIES: Upper extremities are grossly normal. LOWER EXTREMITIES: Grossly normal, no edema. NEURO EXAM: A&O x3, cranial nerves II-XII grossly intact, normal speech, moves all 4 extremities. Past Med/Surg History Medical History Thrombocytopenia Alcohol use disorder Alcoholic hepatitis Ascites Esophageal varices History of deep venous thrombosis Liver cirrhosis SBP (spontaneous bacterial peritonitis) Surgical History No significant past surgical history Family History Grandmother (Maternal) Colorectal cancer Mother Stroke Social History Smoking Status: Never smoker Tobacco Type: Cigarettes Second Hand Exposure: No; Do You Dip or Chew Tobacco: No; Hx Alcohol Use: Yes Alcohol type: beer Hx Substance Use: No Preferred Language: Hungarian Communication Ability: Effective Communication Ability Comment: verbal Social Media Marketing Specialist Required: No Beliefs That Will Affect Care: None Current Living Situation: Family Current Living Situation Comment: with two teenage daughters Feels Safe at Home: Yes Assistive Devices: None Allergies Allergies Allergy/AdvReac Type Severity Reaction Status Date / Time acetaminophen Allergy Intermediate ELEVATED Verified 02/13/23 19:30 FEVER amoxicillin Allergy Intermediate UNKNOWN Verified 02/13/23 19:30 Penicillins Allergy Intermediate UNKNOWN Verified 02/13/23 19:30 acetylcysteine AdvReac Difficulty Verified 09/27/23 19:30 Breathing Home Meds Previous Rx's Medication Instructions Recorded folic acid 1 mg tablet 1 mg PO QAM #30 tabs 02/17/23 furosemide 40 mg tablet 40 mg PO QAM #30 tabs 02/17/23 multivitamin with folic acid 400 1 tab PO QAM #30 tabs 02/17/23 mcg tablet (Daily-Paul (with folic acid)) spironolactone 100 mg tablet 100 mg PO QAM #30 tabs 02/17/23 Results & Data (ED) Vital Signs Vital Signs - 24 hr 09/27/23 14:02 09/27/23 14:28 09/27/23 15:12 Temperature 36.5 C Temperature Source Temporal Artery Scan Pulse Rate 99 H 101 H Respiratory Rate 20 17 Respiratory Effort / Characteristics Non-Labored Spontaneous Respiratory Depth Normal Blood Pressure 124/69 Blood Pressure Mean 87 Pulse Oximetry 100 98 Oxygen Delivery Method Room Air Room Air Sepsis Recent Fever Within 48 Hours No Sepsis New/Unexplained Change in Mental Status No Sepsis Action Taken by Nursing No Action Required 09/27/23 15:15 09/27/23 15:20 09/27/23 15:30 Temperature Temperature Source Pulse Rate 102 H 102 H 109 H Respiratory Rate 15 17 Respiratory Effort / Characteristics Respiratory Depth Blood Pressure Blood Pressure Mean Pulse Oximetry Oxygen Delivery Method Sepsis Recent Fever Within 48 Hours Sepsis New/Unexplained Change in Mental Status Sepsis Action Taken by Nursing 09/27/23 15:40 09/27/23 15:50 09/27/23 16:00 Temperature Temperature Source Pulse Rate 103 H 101 H 112 H Respiratory Rate 16 25 H 24 Respiratory Effort / Characteristics Respiratory Depth Blood Pressure Blood Pressure Mean Pulse Oximetry Oxygen Delivery Method Sepsis Recent Fever Within 48 Hours Sepsis New/Unexplained Change in Mental Status Sepsis Action Taken by Nursing 09/27/23 16:10 Temperature Temperature Source Pulse Rate 104 H Respiratory Rate 19 Respiratory Effort / Characteristics Respiratory Depth Blood Pressure Blood Pressure Mean Pulse Oximetry Oxygen Delivery Method Sepsis Recent Fever Within 48 Hours Sepsis New/Unexplained Change in Mental Status Sepsis Action Taken by Half-Way Medications Current Medication List: was personally reviewed by mt Laboratory Data Attestation: I reviewed the patient's lab results. 09/27/23 14:28 09/27/23 17:14 Lab Results 09/27/23 09/27/23 Range/Units 14:28 14:50 WBC 11.32 H (4.8-10.8) K/ul RBC 3.27 L (4.70-6.10) M/uL Hgb 11.8 L (14.0-18.0) g/dl Hct 32.0 L (42.0-52.0) % MCV 97.9 (80.0-100.0) fL MCH 36.1 H (25.0-34.0) pg MCHC 36.9 H (32.0-36.0) g/dL RDW Std Deviation 55.8 H (36.4-46.3) fL RDW Coeff of Marilyn 15.8 H (11.5-14.5) % Plt Count 50 L (130-400) K/uL MPV 9.7 (9.4-12.4) fL Immature Gran % (Auto) 2.0 % Neut % (Auto) 82.0 % Lymph % (Auto) 5.5 % [place] % (Auto) 9.8 % Eos % (Auto) 0.3 % Baso % (Auto) 0.4 % Neut # (Auto) 9.28 H (1.40-6.50) K/uL Lymph # (Auto) 0.62 L (1.20-3.40) K/uL [place] # (Auto) 1.11 H (0.11-0.59) K/uL Eos # (Auto) 0.03 (0.00-0.50) K/uL Baso # (Auto) 0.05 (0.00-0.20) K/uL Immature Gran # (Auto) 0.23 H (0.01-0.20) K/uL PT 24.2 H (9.0-12.0) Seconds INR 2.3 H (0.9-1.1) APTT 37 H (21-31) Seconds PTT Ratio 1.3 Sodium 119 L* (136-145) mmol/L Potassium 2.5 L* (3.5-5.1) mmol/L Chloride 81 L (98-107) mmol/L Carbon Dioxide 29 (21-32) mmol/L Anion Gap 9 (3-11) BUN 15 (6-23) mg/dl Creatinine TNP Est Cr Clr Drug Dosing TNP Est GFR ( Amer) TNP Est GFR (Non-Af Amer) TNP BUN/Creatinine Ratio TNP Glucose 105 H (70-99(Fasting)) mg/dl Osmolality 254 L (280-300) mOsm/kg Calcium 7.7 L (8.6-10.3) mg/dl Phosphorus 3.3 (2.5-4.9) mg/dl Magnesium 1.8 (1.7-2.4) mg/dl Total Bilirubin 27.7 H (0.2-1.0) mg/dl AST 138 H (13-39) U/L ALT 73 H (7-52) U/L Alkaline Phosphatase 195 H (34-104) U/L Ammonia TNP Total Protein 6.0 (6.0-8.3) gm/dl Albumin 2.4 L (3.4-5.0) gm/dl Globulin 3.6 (2.5-4.0) gm/dl Albumin/Globulin Ratio 0.7 L (0.9-2) Lipase TNP Ethyl Alcohol mg/dL < 10.0 (<10.0) mg/dl Administered Medications Prednisolone Sodium Phosphate (Prednisolone Sod Phosphate 15 Mg/5 Ml) 40 mg PO DAILY [facility] Stop: 10/27/23 16:59 Last Admin: 09/27/23 17:54 Dose: 40 mg Documented By: KV Discontinued Medications Sodium Chloride (Nss) 500 mls @ 999 mls/hr IV .Q31M ONE Stop: 09/27/23 16:18 Last Infusion: 09/27/23 17:20 Dose: Infused Documented By: SKIN DIVER Admin: 09/27/23 16:38 Dose: 999 mls/hr Documented By: SKIN DIVER Calcium Gluconate () 1,000 mg in 60 mls @ 240 mls/hr IV NOW STA Stop: 09/27/23 16:02 Last Infusion: 09/27/23 17:20 Dose: Infused Documented By: SKIN DIVER Admin: 09/27/23 16:38 Dose: 240 mls/hr Documented By: SKIN DIVER Acetylcysteine 15,000 mg/ (Dextrose) 275 mls @ 275 mls/hr IV NOW ONE; Protocol Stop: 09/27/23 17:59 Last Admin: 09/27/23 17:58 Dose: 275 mls/hr Documented By: RENETTA Morphine Sulfate (Morphine Sulfate 2 Mg/Ml Carp) 2 mg IV ONE ONE Stop: 09/27/23 19:30 Last Admin: 09/27/23 20:23 Dose: 2 mg Documented By: SKIN DIVER Potassium Chloride (Potassium Chloride Crtab 20 Meq Tabcr) 40 meq PO NOW STA Stop: 09/27/23 15:49 Last Admin: 09/27/23 16:38 Dose: 40 meq Documented By: SKIN DIVER Potassium Chloride (Potassium Chloride Crtab 20 Meq Tabcr) 40 meq PO NOW STA Stop: 09/27/23 18:51 Last Admin: 09/27/23 20:23 Dose: 40 meq Documented By: SKIN DIVER Discharge Plan Visit Data Chief Complaint: Abdominal Pain Stated Complaint: LIVER ISSUES ED Provider: Layo Jaimes Discharge Problem: Transaminitis, Jaundice, Serum total bilirubin elevated, Alcoholic hepatitis, Hyponatremia, Hypokalemia, Thrombocytopenia Patient Disposition: Admitted As Inpatient Discharge Instructions Interventions: ED Discharge Assessment Last Done: 09/27/23 20:45 Discharge Problem: Alcoholic hepatitis Qualifiers: Ascites presence: with ascites Qualified Code(s): K70.11 - Alcoholic hepatitis with ascites
[2023-09-27 15:14] LABS: Basophils # (auto) 0.05 K/uL (0.00-0.20); Basophils % (auto) 0.4 %; Eosinophils # (auto) 0.03 K/uL (0.00-0.50); Eosinophils % (auto) 0.3 %; Hemoglobin 11.8 g/dl (14.0-18.0); Immature Granulocytes # (auto) 0.23 K/uL (0.01-0.20); Lymphocytes # (auto) 0.62 K/uL (1.20-3.40); Lymphocytes % (auto) 5.5 %; Mean Corpuscular Hemoglobin 36.1 pg (25.0-34.0); Mean Corpuscular Hgb Conc 36.9 g/dL (32.0-36.0); Mean Corpuscular Volume 97.9 fL (80.0-100.0); Mean Platelet Volume 9.7 fL (9.4-12.4); Monocytes # (auto) 1.11 K/uL (0.11-0.59); Monocytes % (auto) 9.8 %; Neutrophils # (auto) 9.28 K/uL (1.40-6.50); Platelet Count 50 K/uL (130-400); RDW Coefficient of Variation 15.8 % (11.5-14.5); RDW Standard Deviation 55.8 fL (36.4-46.3); Red Blood Count 3.27 M/uL (4.70-6.10); White Blood Count 11.32 K/ul (4.8-10.8)
[2023-09-27 15:20] LABS: INR 2.3 (0.9-1.1); Partial Thromboplastin Ratio 1.3; Partial Thromboplastin Time 37 Seconds (21-31); Prothrombin Time 24.2 Seconds (9.0-12.0)
[2023-09-27 15:22] LABS: Alkaline Phosphatase 195 U/L (34-104); Blood Urea Nitrogen 15 mg/dl (6-23); Magnesium 1.8 mg/dl (1.7-2.4)
[2023-09-27 15:26] LABS: Alanine Aminotransferase 73 U/L (7-52); Albumin Globulin Ratio 0.7 (0.9-2); Albumin Level 2.4 gm/dl (3.4-5.0); Anion Gap 9 (3-11); Aspartate Aminotransferase 138 U/L (13-39); Bilirubin,Total 27.7 mg/dl (0.2-1.0); Calcium 7.7 mg/dl (8.6-10.3); Carbon Dioxide 29 mmol/L (21-32); Chloride 81 mmol/L (98-107); Globulin 3.6 gm/dl (2.5-4.0); Glucose 105 mg/dl (70-99(Fasting)); Phosphorus 3.3 mg/dl (2.5-4.9)
[2023-09-27 15:27] LABS: Potassium 2.5 mmol/L (3.5-5.1); Sodium 119 mmol/L (136-145)
[2023-09-27] MEDS ORDERED: CALCIUM GLUCONATE 1,000 MG/60 ML BAG IV STA (15:48)
[2023-09-27] MEDS ORDERED: POTASSIUM CHLORIDE CRTAB 20 MEQ TABCR PO STA ×2 (15:48→18:50)
[2023-09-27] MEDS ORDERED: SODIUM CHLORIDE 0.9% 500 ML IV ONE (15:48)
[2023-09-27] MEDS ORDERED: AcetylCYSTEINE IV 21 HR REGIMEN (>40KG) IV STA (16:54)
[2023-09-27] MEDS ORDERED: STAT IV/IM STA (16:54)
[2023-09-27] MEDS ORDERED: AcetylCYSTEINE 15,000 MG in D5W 200mL (Load) IV ONE (17:00)
[2023-09-27 17:45] LABS: Anion Gap 8 (3-11); Blood Urea Nitrogen 16 mg/dl (6-23); Calcium 7.6 mg/dl (8.6-10.3); Carbon Dioxide 28 mmol/L (21-32); Chloride 83 mmol/L (98-107); Glucose 98 mg/dl (70-99(Fasting)); Potassium 2.4 mmol/L (3.5-5.1); Sodium 119 mmol/L (136-145)
[2023-09-27] MEDS: prednisoLONE sod phosphate 15 MG/5 ML PO SCH (17:54)
[2023-09-27] MEDS ORDERED: AcetylCYSTEINE 5,000mg in D5W 500mL (Maint Dose #1) IV SCH ×2 (18:00→19:00)
--- NOTE | 2023-09-27 18:14 | Ultrasound Report ---
US abdomen ltd ascites CLINICAL HISTORY: ascites TECHNIQUE: Real-time grayscale sonographic images of the abdomen were obtained. Comparison: Comparison is made to CT abdomen pelvis 02/13/2023 FINDINGS/IMPRESSION: Nodular contour of the liver compatible with cirrhosis. Small ascites is seen. ACT 112: Negative or not required by law. Electronically signed by: Vince Gacria M.D. 09/27/2023 6:12 PM
[2023-09-27] MEDS ORDERED: SODIUM CHLORIDE 0.45% IV SCH ×2 (19:00→23:00)
[2023-09-27] MEDS ORDERED: ACETYLCYSTEINE IV SCH ×3 (19:00→23:00)
[2023-09-27] MEDS ORDERED: MoRPHine SULFATE 2 MG/ML CARP IV ONE (19:29)
--- NOTE | 2023-09-27 20:44 | History & Physical Report ---
Date of Service September 27, 2023 Assessment & Plan (1) Alcoholic hepatitis: (2) Alcoholic cirrhosis: Plan: 36-year-old male with history of alcoholic cirrhosis, alcoholic hepatitis, esophageal varices, ascites, SBP, history of DVT s/p Coumadin therapy who pres ents to the ED for evaluation of worsening abdominal distention and jaundice. In the ED, labs show transaminitis - t. bili 27.7, AST 1238, ALT 73, alk phos 195 Abdominal US shows small amount of ascites Maddrey's discriminant function score 55, unable to calculate MELD due to unavailable creatinine due to icteric sample NAC infusion ordered and started in the ED, shortly after initiation of infus ion, patient became hypotensive, short of breath, and complaint of pain between his shoulder blades. Infusion was promptly stopped by nursing. Shortly after infusion was stopped, patient's BP improved. Shoulder blade discomfort continues however is improving as well. Symptoms likely secondary to reaction from NAC. Medication has been added to patient's allergy list. Will continue to monitor closely. For further treatment of alcoholic hepatitis, will start prednisolone 40 mg daily GI consult (3) Hyponatremia: Plan: Na+ 119 Serum osmo 254 Case discussed with nephrology Dr. Schwartz. Initially planned on mixing NAC in 1/2NSS however due to reaction as above, will not be receiving NAC infusion. Rediscussed with Dr. Schwartz who recommends repeating BMP in 4 hours, additional recommendations to come at that time. Low Na+ diet, 1.5 L fluid restriction (4) Hypokalemia: Plan: K 2.4 Replace, follow (5) Thrombocytopenia: Plan: Platelet 50K, at baseline In the setting of cirrhosis DVT PROPHYLAXIS SCDs for now due to thrombocytopenia Patient seen in collaboration with Dr. Garner. I spent a total of 90 minutes coordinating, documenting, and providing care for this patient excluding time spent in the performance of separately billed services. This included personally reviewing all current laboratories and imaging studies, medication reconciliation, outpatient chart review, and discussion with specialists. History of Present Illness Chief Complaint: abdominal distention, jaundice Primary Care Provider: Adan Muniz MD 37-year-old male with prior history of alcoholic cirrhosis, alcoholic hepatitis, esophageal varices, ascites, SBP, history of DVT s/p Coumadin therapy, and other problems listed below who presents to the ED for evaluation of abdominal distention and and jaundice. Patient reports his symptoms began two days ago. History obtained from the patient and review of outpatient PCP and GI records. Reports he is mostly abstinent from alcohol but had one glass of wine a couple of weeks ago. Upon review of outpatient records, patient has no showed for several appointments with hepatology. Patient reports compliance with diuretic therapy. He denies fever and chills. No abdominal pain, nausea, vomiting, and diarrhea. He denies chest pain and shortness of breath. No lightheadedness, dizziness, diaphoresis, or syncopal events. Reports urine has been very dark but denies dysuria. In the ED, patient is hemodynamically stable. Labs show WBC 11K, hgb 11.8, platelet 50K, INR 2.3, Na+ 119, K+ 2.4, T. bili 27.7, AST 138, ALT 73, alk phos 195. Patient was given 500ml NSS. Allergies Allergy/AdvReac Type Severity Reaction Status Date / Time acetaminophen Allergy Intermediate ELEVATED Verified 02/13/23 19:30 FEVER amoxicillin Allergy Intermediate UNKNOWN Verified 02/13/23 19:30 Penicillins Allergy Intermediate UNKNOWN Verified 02/13/23 19:30 acetylcysteine AdvReac Difficulty Verified 09/27/23 19:30 Breathing Home Medications Medication Instructions Recorded Confirmed Type folic acid 1 mg tablet 1 mg PO QAM #30 tabs 02/17/23 09/27/23 Rx furosemide 40 mg tablet 40 mg PO QAM #30 tabs 02/17/23 09/27/23 Rx multivitamin with folic acid 400 1 tab PO QAM #30 tabs 02/17/23 09/27/23 Rx mcg tablet (Daily-Paul (with folic acid)) spironolactone 100 mg tablet 100 mg PO QAM #30 tabs 02/17/23 09/27/23 Rx prednisolone sodium phosphate 15 40 mg (13.3333 mL) PO DAILY 30 09/29/23 Rx mg/5 mL (3 mg/mL) oral solution days #399.999 mL Past Med/Surg History Medical History Thrombocytopenia Alcohol use disorder Alcoholic hepatitis Ascites Esophageal varices History of deep venous thrombosis Liver cirrhosis SBP (spontaneous bacterial peritonitis) Surgical History No significant past surgical history Family History Grandmother (Maternal) Colorectal cancer Mother Stroke Social History Smoking Status: Former smoker Tobacco Type: Cigarettes Second Hand Exposure: No; Do You Dip or Chew Tobacco: No; Hx Alcohol Use: Yes Alcohol type: wine Hx Substance Use: No Preferred Language: Pry[place]in[place] Communication Ability: Effective Communication Ability Comment: verbal Yarn Preparation Supervisor Required: No Beliefs That Will Affect Care: None Current Living Situation: Family Current Living Situation Comment: with two teenage daughters Other Information That Helps Us Care for You: No Feels Safe at Home: Yes Safety Concerns: Feels Safe At This Time Assistive Devices: None Review of Systems Review of Systems: All systems reviewed & are unremarkable except as noted in HPI & below Physical Exam Constitutional: WD/WN, vitals as above + ill appearing (chronically); no acute distress Eyes: PERRL sclera icteric ENMT: Ears: no external ear abnormality Nose: no external nose abnormality Mouth: + poor dentition Respiratory: normal respiratory effort, lungs clear to auscultation Cardiovascular: Rate/Rhythm: regular rate and regular rhythm Vessels: normal peripheral pulses Extremities: + edema (trace edema BLE) Gastrointestinal (Abdomen): Inspection/Auscultation: + abdomen distended Percussion/Palpation: abdomen soft; abdomen nontender Musculoskeletal: no cyanosis or clubbing, extremities motor strength 5/5 Skin: + jaundice Neurologic: PERRL, EOMI, accommodation nl, no face palsy, no dysarthria Psychiatric: A+Ox3, euthymic affect Results & Data Results & Data Vital Signs (Past 12 Hours) Vital Signs Temp Pulse Resp BP Pulse Ox O2 Del Method 09/27/23 17:54 110 H 21 97 09/27/23 17:10 99 H 21 96 Room Air 09/27/23 17:00 100 H 17 09/27/23 16:50 102 H 18 09/27/23 16:40 107 H 15 09/27/23 16:30 108 H 18 09/27/23 16:20 108 H 12 09/27/23 16:10 104 H 19 09/27/23 16:00 112 H 24 09/27/23 15:50 101 H 25 H 09/27/23 15:40 103 H 16 09/27/23 15:30 109 H 17 09/27/23 15:20 102 H 15 09/27/23 15:15 102 H 09/27/23 15:12 101 H 17 09/27/23 14:28 98 Room Air 09/27/23 14:02 36.5 C 99 H 20 124/69 100 Room Air Laboratory Results Short CBC 09/27/23 Range/Units 14:28 WBC 11.32 H (4.8-10.8) K/ul Hgb 11.8 L (14.0-18.0) g/dl Hct 32.0 L (42.0-52.0) % Plt Count 50 L (130-400) K/uL BMP 09/27/23 09/27/23 14:28 17:14 Sodium 119 L* 119 L* Potassium 2.5 L* 2.4 L* Chloride 81 L 83 L Carbon Dioxide 29 28 BUN 15 16 Creatinine TNP TNP Glucose 105 H 98 Calcium 7.7 L 7.6 L Liver Function 09/27/23 Range/Units 14:28 Total Bilirubin 27.7 H (0.2-1.0) mg/dl AST 138 H (13-39) U/L ALT 73 H (7-52) U/L Alkaline Phosphatase 195 H (34-104) U/L Albumin 2.4 L (3.4-5.0) gm/dl Diagnostic Findings Abdomen Ultrasound 09/27/23 17:03 US abdomen ltd ascites CLINICAL HISTORY: ascites TECHNIQUE: Real-time grayscale sonographic images of the abdomen were obtained. Comparison: Comparison is made to CT abdomen pelvis 02/13/2023 FINDINGS/IMPRESSION: Nodular contour of the liver compatible with cirrhosis. Small ascites is seen. ACT 112: Negative or not required by law. Electronically signed by: Vince Garcia M.D. 09/27/2023 6:12 PM Code Status & VTE Plan VTE Prophylaxis Plan VTE Prophylaxis will be ordered: Yes Supervising Physician Co-Signing Physician Notes Pt was seen and examined. Agreed with Sharon GEORGE exam, assessment and plan. 37-year-old male with prior history of alcoholic cirrhosis, alcoholic hepatitis, esophageal varices, ascites, SBP, history of DVT s/p Coumadin therapy present to the ER for abdominal distention and Jaundice. Pt said that he had a glass of wine a couple weeks ago. Denies any fever and chills, nausea, vomiting, and diarrhea. In the ED, patient is hemodynamically stable. Labs show WBC 11K, hgb 11.8, platelet 50K, INR 2.3, Na+ 119, K+ 2.4, T. bili 27.7, AST 138, ALT 73, alk phos 195. Abdominal u/s showed nodular contour of the liver compatible with cirrhosis. Small ascites is seen. Maddrey's discriminant function score 55. NAC infusion started in the ED, then pt became SOB and hypotension and pain between his shoulder blades. NAC infusion discontinued. Will start on Prednisone 40mg daily. Will consult GI. in the ER Na+ 119 and Serum osmo 254. Case discussed with nephrology Dr. Schwartz. Will do fluid restriction at 1.5L daily. Will repeat BMP later. Continue monitor closely. MD Pascual
[2023-09-27] MEDS ORDERED: ACETAMINOPHEN 325 MG TAB PO PRN (21:01)
--- OUTSIDE RECORDS SUMMARY | 2023-09-27 21:03 | External Medical Summary | Summary of Care ---
Author Name Unknown Organization [facility] Address [address] [place] [address] Phone [phone] Care Team Providers Care Customer Acquisition Specialist Name Role Phone Adan Muniz MD Primary Care Provide r Encounter Details Date Type Department Care Team (Late st Contact Info) Description 09/26/2023 Orders Only Outcomes Research Department [address] [place] [address] Malgorzata Salazar CHRA [facility] Research Other*[id number] Allergies Active Allergy Reactions Criticality Noted Date Comments Amoxicillin Rash 10/20/2017 Penicillins Rash High 10/20/2017 Other reaction(s): UNKNOWN Acetaminophen Nausea/vomiting,Othe r (Please comment),Rash 10/20/2017 Shortness of breath documented as of this encounter (statuses as of 09/26/2023) Medications Medication Sig Dispensed Refills Start Date End Date Status K Phos [place]-Sod Phos Di & [place] 155-852-130 MG Oral Tablet (K-Phos Neutral) Take 2 Tablets by mouth 3 times a day. 0 02/17/2023 Active Vitamin B-1 100 MG Oral Tablet Take 1 Tablet by mouth in the morning. 0 Active Multi-Vitamins Oral Tablet Take 1 Tablet by mouth daily at noon. 90 Tablet 3 08/17/2023 Active Folic Acid 1 MG Oral Tablet Take 1 Tablet by mouth in the morning. 90 Tablet 3 08/17/2023 Active Spironolactone 100 MG Oral Tablet (Aldactone) Take 1 Tablet by mouth in the morning. 90 Tablet 3 08/17/2023 Active Furosemide 40 MG Oral Tablet (Lasix) Take 1 Tablet by mouth in the morning. 90 Tablet 3 08/17/2023 Active documented as of this encounter (statuses as of 09/26/2023) Active Problems Problem Noted Date Diagnosed Date Alcoholic hepatitis with ascites 02/22/2023 Iron deficiency anemia due to chronic blood loss 02/22/2023 Hypokalemia 02/22/2023 Hypophosphatemia 02/22/2023 Hypocalcemia 02/22/2023 Cirrhosis of liver with ascites 02/22/2023 Other disorders of bilirubin metabolism 02/23/20 23 History of alcohol abuse 08/16/2022 History of DVT (deep vein thrombosis) 01/22/2019 Tobacco use 01/21/2019 Esophageal varices 01/21/2019 Decompensated hepatic cirrhosis 01/21/2019 Thrombocytopenia 01/21/2019 Macrocytic anemia 01/21/2019 Folate deficiency 01/21/2019 Jaundice 01/21/2019 Hyponatremia 01/21/2019 Alcoholic cirrhosis of liver 01/20/2019 ADVANCE DIRECTIVE INFORMATION 01/15/2006 Overview: No, Advance Directive brochure offered , patient declined. documented as of this encounter (statuses as of 09/26/2023) Resolved Problems Problem Noted Date Diagnosed Date Resolved Date SBP (spontaneous bacterial peritonitis) 01/23/2019 02/22/2023 DVT (deep venous thrombosis) 01/21/2019 01/22/2019 Overview: In 2017 - treated for 3 months with AC Alcohol abuse 01/21/2019 08/16/2022 Coagulation defect 01/21/2019 2 Cellulitis, abdominal wall 01/21/2019 1 10/16/2021 Reflux esophagitis 01/15/2006 1 documented as of this encounter (statuses as of 09/26/2023) Immunizations Name Administration Dates Next Due DTaP Dipth/Tet/Acell Pertussis (Infanrix), Peds 10/10/2009 HEP A - Hepatitis A (Adult > 18 yrs) 08/01/2019, 01/20/2018 Pneumococcal Conjugate Vaccine, 20-valent (Prevn ar20) 06/10/2023 documented as of this encounter Social History Tobacco Use Types Packs/Day Years Used Date Smoking Tobacco: Former Cigarettes 0.5 15 Passive Smoke Exposure: Never Smokeless Tobacco: Never Alcohol Use Standard Drinks/Week Comments Yes 42 (1 standard drink = 0.6 oz pure alcohol) 6 beers per day, pt states he quit drinking in january 2019 Sex and Gender Information Value Date Recorded Sex Assigned at Not on file Gender Identity Not on file Sexual Orientation Not on file Job Start Date Occupation Industry Not on file Not on file Not on file documented as of this encounter Functional Status Functional Status Response Date of Assess ment Are you deaf or do you have serious difficulty h earing? No 01/20/2019 Are you blind or do you have serious difficulty seeing, even when wearing glasses? No 01/20/2019 Does this person have seriou s difficulty walking or climbing stairs? Yes 08/13/2019 Do you have difficulty dress ing or bathing? (5 years old or older) No 01/20/2019 Because of a physical, menta l, or emotional condition, do you have difficulty doing errands alone such as visiting a doctor s office or shopping? (15 years old or older) No 01/21/20 19 Cognitive Status Response Date of Assessm ent Because of a physical, menta l, or emotional condition, do you have serious difficulty concentrating, remembering, or making decisions? (5 years old or older) No 01/20/2019 documented as of this encounter Plan of Treatment Upcoming Encounters Date Type Department Care Team (Latest Contact Info) Description 12/05/2023 11:45 AM EST Hospital Encounter ENDO [facility], Endoscopy Room [facility] [address] [place] [id number] Isabelle De Guzman DO [address] [place] [id number] 12/05/2023 11:45 AM EST - 12/05/2023 12:15 PM EST Surgery ENDO [facility], Endoscopy Room [facility] [address] [place] [phone] Isabelle De Guzman DO [address] [place] [id number] ESOPHAGOGASTRODUODENOSCOPY (EGD), FLEXIBLE, TRANSORAL, DIAGNOSTIC Scheduled Orders Name Type Priority Associated Diagnoses Orde r Schedule MYCODE SUBSEQUENT ADULT Lab Routine [facility] Research Other*[id number] Every 6 Months for 2 Occurrences starting 09/26/2023 until 10/15/2024 Scheduled Procedures Name Priority Associated Diagnoses Date/Ti me ESOPHAGOGASTRODUODENOSCOPY ( EGD), FLEXIBLE, TRANSORAL, DIAGNOSTIC Alcoholic hepatitis with ascites Alcoholic cirrhosis of liver with ascites (HCC) 12/05/2023 11:45 AM EST Health Maintenance Due Date Last Done Comments COVID-19 Vaccine (#1) 04/08/1986 Depression Screening 1997 DTaP,Tdap,and Td Vaccines (2 - Tdap) 10/10/2019 10/10/2009 Influenza Vaccine (FLU shot) (#1) 2023 Diabetes Screening 04/06/2026 04/06/2023, 0 02/28/2023, 02/22/2023, Additional history exists Pneumococcal Vaccine: Pediatrics (0 to 5 Years) and At-Risk Patients (6 to 64 Years) Completed 06/10/2023 GARDASIL-HPV IMMUNIZATION SERIES Aged Out No longer eligible based on patient's age to complete this topic MENINGOCOCCAL (MENACTRA/MENVEO) Aged Out No longer eligible based on patient's age to complete this topic documented as of this encounter Medical Devices Not on filedocumented as of this encounter Visit Diagnoses Diagnosis [facility] Other*[id number] Alcoholic hepatitis with ascites Acute alcoholic hepatitis Alcoholic cirrhosis of liver with ascites (HCC) Alcoholic cirrhosis of liver documented in this encounter Advance Directives Latest Code Status on File Code Status Date Activated Date Inactivated Comments Full Code 01/20/2019 11:57 PM 01/27/2019 6:54 PM This order reflects the patients wishes and were consensually agreed upon. Care Teams Customer Acquisition Specialist Relationship Specialty Start Date End Date Adan Muniz MD [address] [place] [address] [place] [id number] PCP - General Family Medicine 02/22/23 documented as of this encounter
--- OUTSIDE RECORDS SUMMARY | 2023-09-27 21:03 | External Medical Summary | Summary of Care ---
Author Name Unknown Organization [facility] Address [address] [facility] [place] [address] Phone [phone] Care Team Providers Care Medical Insurance Collector Name Role Phone Adan Muniz MD Primary Care Provide r Encounter Details Date Type Department Care Team Description 06/20/2023 Telephone OR [facility], Operating Room [facility] [address] [place] [phone] Isabelle De Guzman DO [address] [place] [address] Allergies Active Allergy Reactions Severity Noted Date Comments Amoxicillin Rash 10/20/2017 Penicillins Rash High 10/20/2017 Other reaction(s): UNKNOWN Acetaminophen Nausea/vomiting,Othe r (Please comment),Rash 10/20/2017 Shortness of breath documented as of this encounter (statuses as of 06/22/2023) Medications Medication Sig Dispensed Refills Start Date End Date Status K Phos [place]-Sod Phos Di & [place] [phone] MG Oral Tablet (K-Phos Neutral) Take 2 Tablets by mouth 3 times a day. 0 02/17/2023 Active Vitamin B-1 100 MG Oral Tablet Take 1 Tablet by mouth in the morning. 0 Active Multi-Vitamins Oral Tablet Take 1 Tablet by mouth daily at noon. 30 Tablet 3 03/01/2023 Active Folic Acid 1 MG Oral Tablet Take 1 Tablet by mouth in the morning. 90 Tablet 1 03/24/2023 Active Spironolactone 100 MG Oral Tablet (Aldactone) Take 1 Tablet by mouth in the morning. 90 Tablet 1 03/24/2023 Active Furosemide 40 MG Oral Tablet (Lasix) Take 1 Tablet by mouth in the morning. 90 Tablet 1 03/24/2023 Active documented as of this encounter (statuses as of 06/22/2023) Active Problems Problem Noted Date Alcoholic hepatitis with ascites 023 Iron deficiency anemia due to chronic bl ood loss 02/22/2023 Hypokalemia 02/22/2023 Hypophosphatemia 02/22/2023 Hypocalcemia 02/22/2023 Cirrhosis of liver with ascites 02/23/20 23 Other disorders of bilirubin metabolism 02/22/2023 History of alcohol abuse 08/16/2022 History of DVT (deep vein thrombosis) Tobacco use 01/21/2019 Esophageal varices 01/21/2019 Decompensated hepatic cirrhosis 01/22/20 19 Thrombocytopenia 01/21/2019 Macrocytic anemia 01/21/2019 Folate deficiency 01/21/2019 Jaundice 01/21/2019 Hyponatremia 01/21/2019 Alcoholic cirrhosis of liver 01/20/2019 ADVANCE DIRECTIVE INFORMATION 01/15/2006 Overview: No, Advance Directive brochure offered , patient declined. documented as of this encounter (statuses as of 06/22/2023) Resolved Problems Problem Noted Date Resolved Date SBP (spontaneous bacterial peritonitis) 01/24/20 19 02/22/2023 DVT (deep venous thrombosis) 01/21/2019 Overview: In 2017 - treated for 3 months with AC Alcohol abuse 01/21/2019 08/16/2022 Coagulation defect 01/21/2019 08/16/2022 Cellulitis, abdominal wall 01/21/201908/16 Reflux esophagitis 01/15/2006 04/30/2011 documented as of this encounter (statuses as of 06/22/2023) Immunizations Name Administration Dates Next Due DTaP [...] he quit drinking in january 2019 Sex Assigned at Date Recorded Not on file Job Start Date Occupation [...] or making decisions? (5 years old or older No 01/20/2019 documented as of this encounter Miscellaneous Notes * Telephone Encounter - ISAI Quigley - 06/22/2023 12:13 PM EDT Called and spoke w/ pt, he cannot keep appt for 06/24 d.t work schedule. Needed a Tuesday appt, mane'd to 12/05 w/ [facility]. * Telephone Encounter - Ktahy Chavez RN - 06/22/2023 9:25 AM EDT Attempted to call for pre anesthesia evaluation. No answer. Voice mail not set up. Pool notified * Telephone Encounter - Kathy Chavez RN - 06/21/2023 8:21 AM EDT Attempted to call for pre anesthesia evaluation. No answer. Voice mail not set up * Telephone Encounter - Kathy Chavez RN - 06/20/2023 11:17 AM EDT Attempted to call for pre anesthesia evaluation. No answer. Voice mail not set up documented in this encounter Plan of Treatment Upcoming Encounters Date Type Specialty Care Team Description 07/11/2023 Office Visit Family Medicine Adan Muniz MD [address] [place] [address] [place] [address] 08/18/2023 Office Visit Gastroenterology Isabelle De Guzman DO [address] [place] [address] 12/05/2023 Hospital Encounter Endoscopy Isabelle De Guzman DO [address] [place] [address] 12/05/2023 Surgery Endoscopy Isabelle De Guzman DO [address] [place] [phone] ESOPHAGOGASTRODUODENOSCOPY (EGD), FLEXIBLE, TRANSORAL, DIAGNOSTIC Scheduled Procedures Name Priority Associated Diagnoses Date/Ti [...] 04/06/2023, 0 02/28/2023, 02/22/2023, Additional history exists Hepatitis C Screening Completed 10/02/2019 , 10/02/2019, 10/02/2019, Additional history exists Pneumococcal Vaccine: Pediatrics (0 [...] Not on filedocumented as of this encounter Advance Directives Latest Code Status on File Code Status Date Activated Date Inactivated Comments Full Code 01/20/2019 11:57 PM 01/27/2019 6:54 PM This order reflects the patients wishes and were consensually agreed upon. Care Teams Medical Insurance Collector Relationship Specialty Start Date End Date Adan Muniz MD [address] [place] [address] [place] [address] PCP - General Family Medicine 02/22/23 documented as of this encounter
--- OUTSIDE RECORDS SUMMARY | 2023-09-27 21:04 | External Medical Summary | Summary of Care ---
Author Name Unknown Organization [facility] Address [address] [facility] [address] Phone [phone] Care Team Providers Care Training Facilitator Name Role Phone Adan Muniz MD Primary Care Provide r Reason for Visit * Reason Onset Date Comments Abnormal Lab Results 04/07/2023 K Encounter Details Date Type Department Care Team Description 04/07/2023 Telephone Hepatology, [facility] [address] [place] [phone] Isabelle De Guzman DO [address] [place] [phone] Abnormal Lab Results (K) Allergies Active Allergy Reactions Severity Noted Date Comments Amoxicillin Rash 10/20/2017 Penicillins Rash High 10/20/2017 Other reaction(s): UNKNOWN Acetaminophen Nausea/vomiting,Othe r (Please comment),Rash 10/20/2017 Shortness of breath documented as of this encounter (statuses as of 04/19/2023) Medications Medication Sig Dispensed Refills Start Date End Date Status Potassium Chloride Vilma ER 20 MEQ Oral Tablet Extended Release Take 1 Tablet by mouth in the morning and 1 Tablet before bedtime. 0 02/17/2023 Active K Phos [place]-Sod Phos Di & [place] 155-852-130 MG Oral Tablet (K-Phos Neutral) Take [...] the morning. 90 Tablet 1 03/24/2023 Active Thiamine HCl 100 MG Oral Tablet (vitamin B-1) TAKE 1 TABLET BY MOUTH ONCE DAILY IN THE MORNING 90 Tablet 1 03/24/2023 Active Spironolactone 100 MG Oral Tablet (Aldactone) Take 1 Tablet by mouth in the morning. 90 Tablet 1 03/24/2023 Active Furosemide 40 MG Oral Tablet (Lasix) Take 1 Tablet by mouth in the morning. 90 Tablet 1 03/24/2023 Active documented as of this encounter (statuses as of 04/19/2023) Active Problems Problem Noted Date Alcoholic hepatitis [...] as of this encounter (statuses as of 04/19/2023) Resolved Problems Problem Noted Date Resolved Date SBP (spontaneous bacterial peritonitis) 01/24/20 19 02/22/2023 DVT (deep venous thrombosis) 01/21/2019 Overview: In 2017 - treated for 3 months with AC Alcohol abuse 01/21/2019 08/16/2022 Coagulation defect 01/21/2019 08/16/2022 Cellulitis, abdominal wall 01/21/201908/16 Reflux esophagitis 01/15/2006 04/30/2011 documented as of this encounter (statuses as of 04/19/2023) Immunizations Name Administration Dates Next Due DTaP - Dipth/Tet/Acell Pertussis 10/10/2009 HEP A - Hepatitis A (Adult > 18 yrs) 08/01/2019, 01/20/2018 documented as of this encounter Social History Tobacco Use Types Packs/Day Years Used Date Smoking Tobacco: Former Cigarettes 0.5 15 Smokeless Tobacco: Never Alcohol Use Standard Drinks/Week [...] encounter Miscellaneous Notes * Telephone Encounter - Brody Johnson RN - 04/19/2023 9:36 AM EDT Letter sent. * Telephone Encounter - Brody Johnson RN - 04/19/2023 9:33 AM EDT Called, no answer, unable to leave VM as box is full. * Telephone Encounter - Brody Johnson RN - 04/07/2023 10:33 AM EDT Called, no answer, unable to leave VM as box is full. Sent MyG also. * Telephone Encounter - Isabelle De Guzman DO - 04/07/2023 10:27 AM EDT Please call patient and let him know I reviewed his recent blood work. MELD-Na score is 20. His K was low at 2.9. can you confirm if he is taking Kdur 20 meq BID still? If so I would like himto take 40 meq BID for the next 4 days and then repeat a BMP on Tuesday. Isabelle De Guzman DO documented in this encounter Plan of Treatment Upcoming Encounters Date Type Specialty Care Team Description 05/10/2023 Office Visit Gastroenterology Isabelle De Guzman DO [address] [place] [phone] 06/24/2023 Hospital Encounter Endoscopy Isabelle De Guzman DO [address] [place] [address] 06/24/2023 Surgery Endoscopy Isabelle De Guzman DO [address] [place] [phone] ESOPHAGOGASTRODUODENOSCOPY (EGD), FLEXIBLE, TRANSORAL, DIAGNOSTIC 07/07/2023 Office Visit Family Medicine Adan Muniz MD [address] [place] [address] [place] [address] Scheduled Orders Name Type Priority Associated Diagnoses Orde r Schedule BASIC METABOLIC PANEL Lab Routine Hypokalemia Expected: 04/11/2023, Expires: 04/07/2024 Scheduled Procedures Name Priority Associated Diagnoses Date/Ti me ESOPHAGOGASTRODUODENOSCOPY ( EGD), FLEXIBLE, TRANSORAL, DIAGNOSTIC Alcoholic hepatitis with ascites Alcoholic cirrhosis of liver with ascites (HCC) 06/24/2023 1:00 PM EDT Health Maintenance Due Date Last Done Comments COVID-19 Vaccine (#1) 04/08/1986 Pneumococcal Vaccine: Pediatrics (0 to 5 Years) and At-Risk Patients (6 to 64 Years) (1 - PCV) 1991 Depression Screening, Annual for Pts 12 and Over 1997 DTaP,Tdap,and Td Vaccines (2 - Tdap) 10/10/2019 10/10/2009 Influenza Vaccine (FLU shot) (#1) 2023 Diabetes Screening 04/06/2026 04/06/2023, 0 02/28/2023, 02/22/2023, Additional history exists Hepatitis C Screening Completed 10/02/2019 , 10/02/2019, 10/02/2019, Additional history exists GARDASIL-HPV IMMUNIZATION SERIES Aged Out No longer eligible based on patient's age to complete this topic MENINGOCOCCAL (MENACTRA/MENVEO) Aged Out No longer eligible based on patient's age to complete this topic documented as of this encounter Medical Devices Not on filedocumented as of this encounter Visit Diagnoses Diagnosis Hypokalemia- Primary Hypopotassemia Alcoholic hepatitis with ascites Acute alcoholic hepatitis Alcoholic cirrhosis of liver with ascites (HCC) Alcoholic cirrhosis of liver documented in this encounter Advance Directives Latest Code Status on File Code Status Date Activated Date Inactivated Comments Full Code 01/20/2019 11:57 PM 01/27/2019 6:54 PM This order reflects the patients wishes and were consensually agreed upon. Care Teams Training Facilitator Relationship Specialty Start Date End Date Adan Muniz MD [address] [place] [address] [place] [address] PCP - General Family Medicine 02/22/23 documented as of this encounter
--- OUTSIDE RECORDS SUMMARY | 2023-09-27 21:04 | External Medical Summary | Summary of Care ---
Author Name Unknown Organization [facility] Address [address] [place] [address] Phone [phone] Care Team Providers Care Biomedical Engineering Aide Name Role Phone Adan Muniz MD Primary Care Provide r Reason for Visit * Reason Comments Outpatient Testing Encounter Details Date Type Department Care Team Description 04/06/2023 Laboratory Laboratory [address] [place] [address] [facility] [address] [place] [address] Alcoholic cirrhosis of liver with ascites (HCC); Low phosphate levels Allergies Active Allergy Reactions Severity Noted Date Comments Amoxicillin Rash 10/20/2017 Penicillins Rash High 10/20/2017 Other reaction(s): UNKNOWN Acetaminophen Nausea/vomiting,Othe r (Please comment),Rash 10/20/2017 Shortness of breath documented as of this encounter (statuses as of 04/06/2023) Medications Medication Sig Dispensed Refills Start Date End Date Status Potassium Chloride Vilma ER 20 MEQ Oral Tablet Extended Release Take 1 Tablet by mouth in the morning and 1 Tablet before bedtime. 0 02/17/2023 Active K Phos [place]-Sod Phos Di & [place] 155-852-130 MG Oral Tablet (K-Phos Neutral) Take [...] as of this encounter (statuses as of 04/06/2023) Active Problems Problem Noted Date Alcoholic hepatitis [...] as of this encounter (statuses as of 04/06/2023) Resolved Problems Problem Noted Date Resolved Date SBP (spontaneous bacterial peritonitis) 01/24/20 19 02/22/2023 DVT (deep venous thrombosis) 01/21/2019 Overview: In 2017 - treated for 3 months with AC Alcohol abuse 01/21/2019 08/16/2022 Coagulation defect 01/21/2019 08/16/2022 Cellulitis, abdominal wall 01/21/201908/16 Reflux esophagitis 01/15/2006 04/30/2011 documented as of this encounter (statuses as of 04/06/2023) Immunizations Name Administration Dates Next Due DTaP [...] Description 05/10/2023 Office Visit Gastroenterology Isabelle De Guzman, [address] [place] [address] 06/24/2023 Hospital Encounter Endoscopy Isabelle De Guzman DO [address] [place] [address] 06/24/2023 Surgery Endoscopy Isabelle De Guzman DO [address] [place] [id number] ESOPHAGOGASTRODUODENOSCOPY (EGD), FLEXIBLE, TRANSORAL, DIAGNOSTIC Pending Results Name Type Priority Associated Diagnoses Date /Time PT INR Lab Routine Alcoholic cirrhosis of liver with ascites (HCC) 04/06/2023 1:02 PM EDT CBC WITH WBC DIFFERENTIAL Lab Routine Alcoholic cirrhosis of liver with ascites (HCC) 04/06/2023 1:02 PM EDT PHOSPHORUS Lab Routine Low phosphate levels 04/06/2023 1:02 PM EDT CBC Lab Routine Alcoholic cirrhosis of liver with ascites (HCC) 04/06/2023 1:02 PM EDT DIFFERENTIAL, AUTOMATED Lab Routine Alcoholic cirrhosis of liver with ascites (HCC) 04/06/2023 1:02 PM EDT BILIRUBIN, DIRECT Lab Routine Alcoholic cirrhosis of liver with ascites (HCC) 04/06/2023 1:02 PM EDT Scheduled Procedures Name Priority Associated Diagnoses Date/Ti [...] Tdap) 10/10/2019 10/10/2009 Influenza Vaccine (FLU shot) (Season Ended) 2023 Diabetes Screening 02/28/2026 02/28/2023, 0 02/22/2023, 08/24/2022, Additional history exists Hepatitis C Screening Completed 10/02/2019 , 10/02/2019, 10/02/2019, Additional history exists GARDASIL-HPV IMMUNIZATION SERIES Aged Out No longer eligible based on patient's age to complete this topic MENINGOCOCCAL (MENACTRA/MENVEO) Aged Out No longer eligible based on patient's age to complete this topic documented as of this encounter Medical Devices Not on filedocumented as of this encounter Visit Diagnoses Diagnosis Alcoholic cirrhosis of liver with ascites (HCC) Alcoholic cirrhosis of liver Low phosphate levels Disorders of phosphorus metabolism Alcoholic hepatitis with ascites Acute alcoholic hepatitis Alcoholic cirrhosis of liver with ascites (HCC) Alcoholic cirrhosis of liver documented in this encounter Advance Directives Latest Code Status on File Code Status Date Activated Date Inactivated Comments Full Code 01/20/2019 11:57 PM 01/27/2019 6:54 PM This order reflects the patients wishes and were consensually agreed upon. Care Teams Biomedical Engineering Aide Relationship Specialty Start Date End Date Adan Muniz MD [address] [place] [address] [place] [address] PCP - General Family Medicine 02/22/23 documented as of this encounter
--- OUTSIDE RECORDS SUMMARY | 2023-09-27 21:04 | External Medical Summary | Summary of Care ---
Author Name Unknown Organization [facility] Address [address] [place] [address] Phone [phone] Care Team Providers Care Productivity Engineer Name Role Phone Adan Muniz MD Primary Care Provide r Reason for Visit * Reason Onset Date Comments Test Results 04/08/2023 Encounter Details Date Type Department Care Team Description 04/08/2023 Telephone Family Medicine [address] [address] Adan Muniz MD [address] [place] [address] [place] [address] Test Results Allergies Active Allergy Reactions Severity Noted Date Comments Amoxicillin Rash 10/20/2017 Penicillins Rash High 10/20/2017 Other reaction(s): UNKNOWN Acetaminophen Nausea/vomiting,Othe r (Please comment),Rash 10/20/2017 Shortness of breath documented as of this encounter (statuses as of 04/08/2023) Medications Medication Sig Dispensed Refills Start Date End Date Status Potassium Chloride Vilma ER 20 MEQ Oral Tablet Extended Release Take 1 Tablet by mouth in the morning and 1 Tablet before bedtime. 0 02/17/2023 Active K Phos Garza-Sod Phos Di & Garza 155-852-130 MG Oral Tablet (K-Phos Neutral) Take [...] as of this encounter (statuses as of 04/08/2023) Active Problems Problem Noted Date Alcoholic hepatitis [...] as of this encounter (statuses as of 04/08/2023) Resolved Problems Problem Noted Date Resolved Date SBP (spontaneous bacterial peritonitis) 01/24/20 19 02/22/2023 DVT (deep venous thrombosis) 01/21/2019 Overview: In 2017 - treated for 3 months with AC Alcohol abuse 01/21/2019 08/16/2022 Coagulation defect 01/21/2019 08/16/2022 Cellulitis, abdominal wall 01/21/201908/16 Reflux esophagitis 01/15/2006 04/30/2011 documented as of this encounter (statuses as of 04/08/2023) Immunizations Name Administration Dates Next Due DTaP [...] encounter Miscellaneous Notes * Telephone Encounter - Adan Muniz MD - 04/08/2023 4:19 PM EDT Called 2x: no answer - also it looks like pt did not check his Myg Message Please call the pt -- your potassium is low -- are you taking your potassium supplement? ----- if not please take the KCL tablet daily -- please come to the lab on Tuesday to get the blood work done documented in this encounter Plan of Treatment Upcoming Encounters Date Type Specialty Care Team Description 05/10/2023 Office Visit Gastroenterology Isabelle De Guzman, DO [address] [place] [address] 06/24/2023 Hospital Encounter [facility] Isabelle Debi, DO [address] [place], [place] [address] 06/24/2023 Surgery Endoscopy GegeIsabelle, DO [address] [place], [place] [address] ESOPHAGOGASTRODUODENOSCOPY (EGD), FLEXIBLE, TRANSORAL, DIAGNOSTIC 07/07/2023 Office Visit Family Medicine Adan Muniz MD [address] [place] [address] [place] [address] Scheduled Orders Name Type Priority Associated Diagnoses Orde r Schedule BASIC METABOLIC PANEL Lab Routine Hypokalemia Expected: 04/09/2023, Expires: 04/08/2024 Scheduled Procedures Name Priority Associated Diagnoses Date/Ti [...] (FLU shot) (Season Ended) 2023 Diabetes Screening 04/06/2026 04/06/2023, 0 02/28/2023, [...] and were consensually agreed upon. Care Teams Productivity Engineer Relationship Specialty Start Date End Date Adan Muniz MD [address] [place] [address] [place] [address] PCP - General Family Medicine 02/22/23 documented as of this encounter
--- OUTSIDE RECORDS SUMMARY | 2023-09-27 21:04 | External Medical Summary | Summary of Care ---
Author Name Unknown Organization [facility] Address [address] [place] [address] Phone [phone] Care Team Providers Care Railway Switch Operator Name Role Phone dAan Muniz MD Primary Care Provide r Reason for Visit * Reason Comments Re-Check Encounter Details Date Type Department Care Team Description 04/06/2023 Office Visit Family Medicine [address] [address] Adan Muniz MD [address] [place] [address] [place] [id number] Decompensated hepatic cirrhosis (HCC)*; Alcoholic cirrhosis of liver with ascites (HCC); Jaundice; Anemia, unspecified type Allergies Active Allergy Reactions Severity Noted Date [...] before bedtime. 0 02/17/2023 Active K Phos [place]-Sod Phos Di & [place] 155-852-130 MG Oral Tablet (K-Phos Neutral) Take [...] the morning. 90 Tablet 1 03/24/2023 Active prednisoLONE 15 MG/5ML Oral Solution Take 13.3 mL by mouth daily. 0 02/18/2023 04/06/2023 Discontinued (Medication List Clean Up) Clindamycin HCl 300 MG Oral Capsule 0 02/27/2023 04/06/2023 Discontinued (Medication List Clean Up) documented as of this encounter (statuses as [...] Former Cigarettes 0.5 15 Smokeless Tobacco: Never Tobacco Cessation:Counseling Given: No Alcohol Use Standard Drinks/Week Comments Yes 42 (1 standard drink = 0.6 oz pure alcohol) 6 beers per day, pt states he quit drinking in january 2019 Sex Assigned at Date Recorded Not on file Job Start Date Occupation Industry Not on file Not on file Not on file documented as of this encounter Last Filed Vital Signs Vital Sign Reading Time Taken Comments Blood Pressure 120/82 04/06/2023 12:28 PM EDT Pulse 95 04/06/2023 12:28 PM EDT Temperature 36.1 C (97 F) 04/06/2023 12: 28 PM EDT Respiratory Rate 16 04/06/2023 12:2 8 PM EDT Oxygen Saturation 97% 04/06/2023 12: 28 PM EDT Inhaled Oxygen Concentration - - Weight 103.7 kg (228 lb 9.6 oz) 023 12:28 PM EDT Height 180.3 cm (5' 11") 04/06/2023 12: 28 PM EDT Body Mass Index 31.88 04/06/2023 12:28 PM EDT documented in this encounter Functional Status Functional Status Response [...] No 01/20/2019 documented as of this encounter Progress Notes * Adan Muniz MD - 04/06/2023 12:43 PM EDT Subjective: HPI: Braxton Roe is a 37 year old male with hx of ETOH cirrhosis, Esophageal varices, hx of ascitesand SBP, thrombocytopenia, Splenomegaly seen for Pt was admitted to the hospital in february for decompensated liver failure (from 02/14-02/19) - he was found to be Jaundice and anemic Today: - feeling good - denied any confusion, abd pain, N/V or fever - not drinking ETOH --- last intake was in January -pt works at [employer] --- last went to work beginning of February () --- pt would like to return to work on April 13 Patient Active Problem List Diagnosis Code ADVANCE DIRECTIVE INFORMATION Alcoholic cirrhosis of liver (HCC) K70.30 Tobacco use Z72.0 Esophageal varices (HCC) I85.00 Decompensated hepatic cirrhosis (HCC) K72.90, K74.60 Thrombocytopenia (HCC) D69.6 Macrocytic anemia D53.9 Folate deficiency E53.8 Jaundice R17 Hyponatremia E87.1 History of DVT (deep vein thrombosis) Z86.718 History of alcohol abuse F10.11 Alcoholic hepatitis with ascites K70.11 Iron deficiency anemia due to chronic blood loss D50.0 Hypokalemia E87.6 Hypophosphatemia E83.39 Hypocalcemia E83.51 Cirrhosis of liver with ascites (HCC) K74.60, R18.8 Other disorders of bilirubin metabolism E80.6 Current Outpatient Medications Medication Sig Dispense Refill Potassium Chloride Vilma ER 20 MEQ Oral Tablet Extended Release Take 1 Tablet by mouth in the morning and 1 Tablet before bedtime. K Phos [place]-Sod Phos Di & [place] 155-852-130 MG Oral Tablet (K-Phos Neutral) Take 2 Tablets by mouth 3 times a day. Vitamin B-1 100 MG Oral Tablet Take 1 Tablet by mouth in the morning. Multi-Vitamins Oral Tablet Take 1 Tablet by mouth daily at noon. 30 Tablet 3 Folic Acid 1 MG Oral Tablet Take 1 Tablet by mouth in the morning. 90 Tablet 1 Thiamine HCl 100 MG Oral Tablet (vitamin B-1) TAKE 1 TABLET BY MOUTH ONCE DAILY IN THE MORNING 90 Tablet 1 Spironolactone 100 MG Oral Tablet (Aldactone) Take 1 Tablet by mouth in the morning. 90 Tablet 1 Furosemide 40 MG Oral Tablet (Lasix) Take 1 Tablet by mouth in the morning. 90 Tablet 1 No current facility-administered medications for this visit. Past Medical History: Diagnosis Date SBP (spontaneous bacterial peritonitis) (HCC) 01/23/2019 Varicella without complication age 5 Past Surgical History: Procedure Laterality Date EGD, FLEXIBLE, DIAGNOSTIC 10/04/2017 esophageal varices, portal hypertensive gastropathy / INPT [facility] Review of patient's allergies indicates: Allergen Reactions Penicillins Rash Other reaction(s): UNKNOWN Amoxicillin Rash Tylenol [Acetaminophen] Nausea/vomiting, Other (Please comment) and Rash Shortness of breath Family History Problem Relation Age of Onset Colon cancer Grandmother (Maternal) Stroke Mother Social History Tobacco Use Smoking status: Former Packs/day: 0.50 Years: 15.00 Pack years: 7.50 Types: Cigarettes Smokeless tobacco: Never Substance Use Topics Alcohol use: Yes Alcohol/week: 42.0 standard drinks Types: 42 12 oz of beer per week Comment: 6 beers per day, pt states he quit drinking in january 2019 Vaping/E-Cigarette Use Vaping/E-Cigarette Substances Vaping/E-Cigarette Devices RECENT LABS: Results for orders placed or performed in visit on 02/28/23 MYCODE SST1 Result Value Ref Range MyCode Specimen Freezing of extracted DNA, whole blood and/or serum. MYCODE SST2 Result Value Ref Range MyCode Specimen Freezing of extracted DNA, whole blood and/or serum. ROS: -Per HPI OBJECTIVE: BP 120/82 | Pulse 95 | Temp 36.1 C (97 F) (Tympanic) | Resp 16 | Ht 1.803 m (5' 11") | Wt 103.7kg (228 lb 9.6 oz) | SpO2 97% | BMI 31.88 kg/m | BSA 2.28 m PHYSICAL EXAM: Vitals are reviewed General:. NAD, well developed HEENT:.Jaundice, EOMI Cardiac:. Normal S1, S2, no murmur Lungs:. CTA, no wheezing or crackles Abd:. soft, ND, NT MSK:. Normal gait Psych:. AAOx3, normal affect ASSESSMENT/PLAN: VSS and pt is doing very well - per pt no worsening jaundice - normal abd exam - labs today - RTW note given Decompensated hepatic cirrhosis (HCC) (Primary) - RETURN TO WORK OR SCHOOL Alcoholic cirrhosis of liver with ascites (HCC) - RETURN TO WORK OR SCHOOL Jaundice - RETURN TO WORK OR SCHOOL - COMPREHENSIVE METABOLIC PANEL Anemia, unspecified type - CBC WITH WBC DIFFERENTIAL Follow Up: Return in about 3 months (around 07/07/2023). Adan Muniz MD Family medicine, [address] [address] documented in this encounter Nursing Notes * Мария Heredia LPN - 04/06/2023 12:28 PM EDT Pt here to be cleared to return to work - 04/13 Will need form completed through [employer] - doesn't have this form Will need a work note in the meantime until the [employer] form is faxed documented in this encounter Plan of Treatment Upcoming Encounters Date Type Specialty Care Team Description 05/10/2023 Office Visit Gastroenterology Isabelle De Guzman DO [address] [place] [address] 06/24/2023 Hospital Encounter Endoscopy Isabelle De Guzman DO [address] [place] [address] 06/24/2023 Surgery Endoscopy Isabelle De Guzman DO [address] [place] [address] ESOPHAGOGASTRODUODENOSCOPY (EGD), FLEXIBLE, TRANSORAL, DIAGNOSTIC Pending Results Name Type Priority Associated Diagnoses Date /Time COMPREHENSIVE METABOLIC PANEL Lab Routine Jaundice 04/06/2023 1:02 PM EDT Scheduled Procedures Name [...] as of this encounter Visit Diagnoses Diagnosis Decompensated hepatic cirrhosis (HCC)- Primary Alcoholic cirrhosis of liver with ascites (HCC) Alcoholic cirrhosis of liver Jaundice Jaundice, unspecified, not of Anemia, unspecified type Alcoholic hepatitis with ascites Acute alcoholic hepatitis Alcoholic cirrhosis of liver with ascites (HCC) Alcoholic cirrhosis of liver documented in this encounter Advance Directives Latest Code Status on File Code Status Date Activated Date Inactivated Comments Full Code 01/20/2019 11:57 PM 01/27/2019 6:54 PM This order reflects the patients wishes and were consensually agreed upon. Care Teams Railway Switch Operator Relationship Specialty Start Date End Date Adan Muniz MD [address] [place] [address] [place] [address] PCP - General Family Medicine 02/22/23 documented as of this encounter
--- OUTSIDE RECORDS SUMMARY | 2023-09-27 21:04 | External Medical Summary | Summary of Care ---
Author Name Unknown Organization [facility] [address] [facility] [address] Phone [phone] Care Team Providers Care Food Sampler Name Role Phone Adan Muniz MD Primary Care Provide r Reason for Visit * Reason Onset Date Comments Abnormal Lab Results 04/07/2023 K Encounter Details Date Type Department Care Team Description 04/07/2023 Telephone Hepatology, [facility] [address] [place] [address] Isabelle De Guzman DO [address] [place] [address] Abnormal Lab Results (K) Allergies Active Allergy Reactions Severity Noted Date Comments Amoxicillin Rash 10/20/2017 Penicillins Rash High 10/20/2017 Other reaction(s): UNKNOWN Acetaminophen Nausea/vomiting,Othe r (Please comment),Rash 10/20/2017 Shortness of breath documented as of this encounter (statuses as of 04/07/2023) Medications Medication Sig Dispensed Refills Start Date End Date Status Potassium Chloride Vilma ER 20 MEQ Oral Tablet Extended Release Take 1 Tablet by mouth in the morning and 1 Tablet before bedtime. 0 02/17/2023 Active K Phos [place]-Sod Phos Di & [place] 155-852-130 MG Oral Tablet (K-Phos Neutral) Take [...] as of this encounter (statuses as of 04/07/2023) Active Problems Problem Noted Date Alcoholic hepatitis [...] as of this encounter (statuses as of 04/07/2023) Resolved Problems Problem Noted Date Resolved Date SBP (spontaneous bacterial peritonitis) 01/24/20 19 02/22/2023 DVT (deep venous thrombosis) 01/21/2019 Overview: In 2017 - treated for 3 months with AC Alcohol abuse 01/21/2019 08/16/2022 Coagulation defect 01/21/2019 08/16/2022 Cellulitis, abdominal wall 01/21/201908/16 Reflux esophagitis 01/15/2006 04/30/2011 documented as of this encounter (statuses as of 04/07/2023) Immunizations Name Administration Dates Next Due DTaP [...] also. * Telephone Encounter - Isabelle De Guzman, - 04/07/2023 10:27 AM EDT Please call [...] Guzman DO [address] [place] [address] 06/24/2023 Hospital Encounter Endoscopy Isabelle De Guzman DO [address] [place] [address] 06/24/2023 Surgery Endoscopy Isabelle De Guzman DO [address] [place] [address] ESOPHAGOGASTRODUODENOSCOPY (EGD), FLEXIBLE, TRANSORAL, DIAGNOSTIC 07/07/2023 Office Visit Family Medicine Adan Muniz MD [address] [place] [address] [place] [address] Scheduled Orders Name Type Priority Associated Diagnoses [...] and were consensually agreed upon. Care Teams Food Sampler Relationship Specialty Start Date End Date Adan Muniz MD [address] [place] [address] [place] [id number] PCP - General Family Medicine 02/22/23 documented as of this encounter
--- OUTSIDE RECORDS SUMMARY | 2023-09-27 21:04 | External Medical Summary | Summary of Care ---
Author Name Unknown Organization [facility] Address [address] [place] [address] Phone [phone] Care Team Providers Care Senior Business Process Analyst Name Role Phone Adan Muniz MD Primary Care Provide r Reason for Visit * Reason Onset Date Comments Forms Request 06/03/2023 FMLA Encounter Details Date Type Department Care Team Description 06/03/2023 Telephone Family Medicine [address] [address] Adan Muniz MD [address] [place] [address] [place] [address] Forms Request ([facility]) Allergies Active Allergy Reactions Severity Noted Date Comments Amoxicillin Rash 10/20/2017 Penicillins Rash High 10/20/2017 Other reaction(s): UNKNOWN Acetaminophen Nausea/vomiting,Othe r (Please comment),Rash 10/20/2017 Shortness of breath documented as of this encounter (statuses as of 06/03/2023) Medications Medication Sig Dispensed Refills Start Date End Date Status K Phos [place]-Sod Phos Di & [place] 155-852-130 MG Oral Tablet (K-Phos Neutral) Take [...] as of this encounter (statuses as of 06/03/2023) Active Problems Problem Noted Date Alcoholic hepatitis [...] as of this encounter (statuses as of 06/03/2023) Resolved Problems Problem Noted Date Resolved Date SBP (spontaneous bacterial peritonitis) 01/24/20 19 02/22/2023 DVT (deep venous thrombosis) 01/21/2019 Overview: In 2017 - treated for 3 months with AC Alcohol abuse 01/21/2019 08/16/2022 Coagulation defect 01/21/2019 08/16/2022 Cellulitis, abdominal wall 01/21/201908/16 Reflux esophagitis 01/15/2006 04/30/2011 documented as of this encounter (statuses as of 06/03/2023) Immunizations Name Administration Dates Next Due DTaP [...] Miscellaneous Notes * Telephone Encounter - ISAI Granados - 06/03/2023 10:31 AM EDT Appt scheduled, My [email or web address] message sent to patient. I tried to call him, no answer and could not leave message. * Telephone Encounter - Мария Heredia LPN - 06/03/2023 8:42 AM EDT Received [employer] form for pt FMLA form not mentioned at last office visit with Dr. Muniz on 04/06/23 Recommend appointment to discuss Scheduling: Please assist pt in scheduling an appointment with Dr. Muniz to discuss FMLA form Provider to address: N/A Reason for Call: Forms Request (FMLA) Contact: Telephone Call Contact Type: Information Outcome: see above Total Time including non face to face (minutes): 10 documented in this encounter Plan of Treatment Upcoming Encounters Date Type Specialty Care Team Description 06/09/2023 Office Visit Family Adan Ramsay MD [address] [place] [address] [place] [address] 06/24/2023 Hospital Encounter Endoscopy Isabelle De Guzman DO [address] [place] [address] 06/24/2023 Surgery Endoscopy Isabelle De Guzman DO [address] [place] [address] ESOPHAGOGASTRODUODENOSCOPY (EGD), FLEXIBLE, TRANSORAL, DIAGNOSTIC 07/07/2023 Office Visit Family Adan Ramsay MD [address] [place] [address] [place] [address] Scheduled Procedures Name Priority Associated Diagnoses Date/Ti [...] and were consensually agreed upon. Care Teams Senior Business Process Analyst Relationship Specialty Start Date End Date Adan Muniz MD [address] [place] [address] [place] [address] PCP - General Family Medicine 02/22/23 documented as of this encounter
--- OUTSIDE RECORDS SUMMARY | 2023-09-27 21:04 | External Medical Summary | Summary of Care ---
Author Name Unknown Organization [facility] Address [address] [place] [address] Phone [phone] Care Team Providers Care Roller Engraver Name Role Phone Adan Muniz MD Primary Care Provide r Reason for Visit * Reason Comments Routine Exam FMLA paperwork Encounter Details Date Type Department Care Team Description 06/10/2023 Office Visit Family Medicine [address] [address] Lucy Rodas PA-C [address] [place], [place] [address] [address] Decompensated hepatic cirrhosis (HCC)*; Need for pneumococcal vaccination; Jaundice; Alcoholic hepatitis with ascites Allergies Active Allergy Reactions Severity Noted Date Comments Amoxicillin Rash 10/20/2017 Penicillins Rash High 10/20/2017 Other reaction(s): UNKNOWN Acetaminophen Nausea/vomiting,Othe r (Please comment),Rash 10/20/2017 Shortness of breath documented as of this encounter (statuses as of 06/10/2023) Medications Medication Sig Dispensed Refills Start Date End Date Status K Phos [place]-Sod Phos Di & [place] 155-852-130 MG Oral Tablet (K-Phos Neutral) Take [...] as of this encounter (statuses as of 06/10/2023) Active Problems Problem Noted Date Alcoholic hepatitis [...] as of this encounter (statuses as of 06/10/2023) Resolved Problems Problem Noted Date Resolved Date SBP (spontaneous bacterial peritonitis) 01/24/20 19 02/22/2023 DVT (deep venous thrombosis) 01/21/2019 Overview: In 2017 - treated for 3 months with AC Alcohol abuse 01/21/2019 08/16/2022 Coagulation defect 01/21/2019 08/16/2022 Cellulitis, abdominal wall 01/21/201908/16 Reflux esophagitis 01/15/2006 04/30/2011 documented as of this encounter (statuses as of 06/10/2023) Immunizations Name Administration Dates Next Due DTaP [...] Sign Reading Time Taken Comments Blood Pressure 132/80 06/10/2023 10:09 AM EDT Pulse 106 06/10/2023 10:09 AM EDT Temperature 35.6 C (96 F) 06/10/2023 10:09 AM EDT Respiratory Rate - - Oxygen Saturation 99% 06/10/2023 10:09 AM EDT Inhaled Oxygen Concentration - - Weight 103 kg (227 lb 1.6 oz) 06/10/2023 10:09 A M EDT Height - - Body Mass Index 31.67 04/06/2023 12:28 PM EDT documented in this [...] No 01/20/2019 documented as of this encounter Patient Instructions * Patient Instructions* Dayanna Lewis CMA - 06/10/2023 10:12 AM EDT ~~PATIENT INSTRUCTIONS FOR PNEUMOCOCCAL VACCINE~~ Possible side effects of pneumococcal vaccine, (pneumonia shot), are usually mild and can include: 1. Soreness or redness at injection site 2. Low grade fever 3. Body aches You may use Tylenol/Acetaminophen as needed for these symptoms. LET YOUR DOCTOR KNOW IMMEDIATELY IF YOU HAVE DIFFICULTY BREATHING OR SWALLOWING, EXPERIENCE ITCHINGOF FEET OR HANDS, HAVE SWELLING OF EYES, FACE OR INSIDE OF NOSE. documented in this encounter Progress Notes * Lucy Rodas PA-C - 06/10/2023 10:14 AM EDT Images from the original note were not included. History of Present Illness Braxton Roe is a 37 year old male that presents for Routine Exam (FMLA paperwork) Nursing Notes: Dayanna Lewis CMA 06/10/23 1018 Signed He is here to get FMLA paperwork filled out. It is for when he was off work before. HPI: Braxton Roe is a 37 year old male presenting to the office today for FMLA paperwork. His forms were previously completed for 2-3 months but the dates were listed for only 2 months. He had multiple other days he missed due to appointments and an injury, and he is wondering about updating the FMLA forms. I completed/addended the dates today, but if they need an update for injury, he may need a secondary FMLA form completed. He understood. He No Showed his Hepatology appt. Need to reschedule. Reviewed record/notes including: Hepatology Current Outpatient Medications Medication Instructions folic acid 1 mg, Oral, Daily(AM) Furosemide (LASIX) 40 mg, Oral, Daily(AM) K Phos [place]-Sod Phos Di & [place] 155-852-130 MG Oral Tablet (K-Phos Neutral) 2 Tablets, Oral, TID(Non-Specified) Multi-Vitamins Oral Tablet 1 Tablet, Oral, DAILY NOON Spironolactone (ALDACTONE) 100 mg, Oral, Daily(AM) Vitamin B-1 100 mg, Oral, Daily(AM) Med list reviewed by me today. Physical Exam Vitals: 06/10/23 1009 Temp: 35.6 C (96 F) Pulse: 106 SpO2: 99% BP: 132/80 Physical exam: General: Well-Developed. Well appearing. No acute distress. HENT: Normocephalic. Atraumatic. Hearing normal. I have reviewed the following results: CMP, CBC, and B12 Assessment and Plan Decompensated hepatic cirrhosis (HCC) Recheck labs when able. - COMPREHENSIVE METABOLIC PANEL; Future - CBC WITH WBC DIFFERENTIAL AND ANEMIA REFLEX WORKUP; Future Need for pneumococcal vaccination - PNEUMOCOCCAL VACC, PCV20, IM ([id number]) Jaundice Alcoholic hepatitis with ascites Wrap-Up Check-out note: Reschedule Hepatology Time: I spent a total of 40-54 minutes (exact time 45 mins) on the date of service in preparation, delivery, and documentation of the care provided to Braxton Roe excluding any time spent in the performance of separately billed services. * Dayanna Lewis CMA - 06/10/2023 10:12 AM EDT Immunization Administration Documentation Time Out Procedure Performed: Yes Patient Identified (Ask Name/Date of ): Yes Does the patient have a fever greater than 101 degrees today? No Patient allergic to latex? No VFC Stock: No Immunization(s) verified: Yes, Immunization Name: Prevnar 20 (PCV20), VIS Sheet(s) given: Yes Verified Side and Site: Yes Verified Shot(s) with Parent(s)/Patient: Yes documented in this encounter Nursing Notes * Dayanna Lewis CMA - 06/10/2023 10:07 AM EDT He is here to get [facility] paperwork filled out. It is for when he was off work before. documented in this encounter Plan of Treatment Upcoming Encounters Date Type Specialty Care Team Description 06/24/2023 Hospital Encounter Endoscopy Isabelle De Guzman, DO [address] [place] [address] 06/24/2023 Surgery Endoscopy Isabelle De Guzman, DO [address] [place] [address] ESOPHAGOGASTRODUODENOSCOPY (EGD), FLEXIBLE, TRANSORAL, DIAGNOSTIC 07/11/2023 Office Visit Family Medicine Adan Muniz MD [address] [place] [address] [place] [address] Scheduled Orders Name Type Priority Associated Diagnoses Orde r Schedule COMPREHENSIVE METABOLIC PANEL Lab Routine Decompensated hepatic cirrhosis (HCC) Expected: 06/10/2023 (Approximate), Expires: 06/09/2024 CBC WITH WBC DIFFERENTIAL AND ANEMIA REFLEX WORKUP Lab Routine Decompensated hepatic cirrhosis (HCC) Expected: 06/10/2023 (Approximate), Expires: 06/10/2024 Scheduled Procedures Name Priority Associated Diagnoses Date/Ti me ESOPHAGOGASTRODUODENOSCOPY ( EGD), FLEXIBLE, TRANSORAL, DIAGNOSTIC Alcoholic hepatitis with ascites Alcoholic cirrhosis of liver with ascites (HCC) 06/24/2023 1:00 PM EDT Health Maintenance Due Date Last Done Comments COVID-19 Vaccine (#1) 04/08/1986 Depression Screening, Annual for Pts 12 and [...] Diagnoses Diagnosis Decompensated hepatic cirrhosis (HCC)- Primary Need for pneumococcal vaccination Need for prophylactic vaccination against streptococcus pneumoniae (pneumococcus) Jaundice Jaundice, unspecified, not of Alcoholic hepatitis with ascites Acute alcoholic hepatitis Alcoholic hepatitis with ascites Acute alcoholic hepatitis Alcoholic cirrhosis of liver with ascites (HCC) Alcoholic cirrhosis of liver documented in this encounter Advance Directives Latest Code Status on File Code Status Date Activated Date Inactivated Comments Full Code 01/20/2019 11:57 PM 01/27/2019 6:54 PM This order reflects the patients wishes and were consensually agreed upon. Care Teams Roller Engraver Relationship Specialty Start Date End Date Adan Muniz MD [address] [place] [address] [place] [address] PCP - General Family Medicine 02/22/23 documented as of this encounter
--- OUTSIDE RECORDS SUMMARY | 2023-09-27 21:04 | External Medical Summary | Summary of Care ---
Author Name Unknown Organization [facility] Address [address] [place] [address] Phone [phone] Care Team Providers Care Marionette Performer Name Role Phone Adan Muniz MD Primary Care Provide r Reason for Visit * Reason Comments Acute Pt here for knee inj ury from ladder and need return to work note has no pain at this time, has been off week and a half. Has some bruising on his Lt knee and none on Rt Encounter Details Date Type Department Care Team Description 05/24/2023 Office Visit Family Practice [facility] [address] [place] [address] Sharon Bowling DO [address] [place] [address] Acute pain of both knees* Allergies Active Allergy Reactions Severity Noted Date Comments Amoxicillin Rash 10/20/2017 Penicillins Rash High 10/20/2017 Other reaction(s): UNKNOWN Acetaminophen Nausea/vomiting,Othe r (Please comment),Rash 10/20/2017 Shortness of breath documented as of this encounter (statuses as of 05/24/2023) Medications Medication Sig Dispensed Refills Start Date End Date Status K Phos [place]-Sod Phos Di & [place] 155-852-130 MG Oral Tablet (K-Phos Neutral) Take [...] the morning. 90 Tablet 1 03/24/2023 Active Potassium Chloride Vilma ER 20 MEQ Oral Tablet Extended Release Take 1 Tablet by mouth in the morning and 1 Tablet before bedtime. 0 02/17/2023 05/24/2023 Discontinued (Patient preference/d iscontinuati on) Thiamine HCl 100 MG Oral Tablet (vitamin B-1) TAKE 1 TABLET BY MOUTH ONCE DAILY IN THE MORNING 90 Tablet 1 03/24/2023 05/24/2023 Discontinued (Medication List Clean Up) documented as of this encounter (statuses as of 05/24/2023) Active Problems Problem Noted Date Alcoholic hepatitis [...] as of this encounter (statuses as of 05/24/2023) Resolved Problems Problem Noted Date Resolved Date SBP (spontaneous bacterial peritonitis) 01/24/20 19 02/22/2023 DVT (deep venous thrombosis) 01/21/2019 Overview: In 2017 - treated for 3 months with AC Alcohol abuse 01/21/2019 08/16/2022 Coagulation defect 01/21/2019 08/16/2022 Cellulitis, abdominal wall 01/21/201908/16 Reflux esophagitis 01/15/2006 04/30/2011 documented as of this encounter (statuses as of 05/24/2023) Immunizations Name Administration Dates Next Due DTaP - Dipth/Tet/Acell Pertussis 10/10/2009 HEP A - Hepatitis A (Adult > 18 yrs) 08/01/2019, 01/20/2018 documented as of this encounter Social History Tobacco Use Types Packs/Day Years Used Date Smoking Tobacco: Former Cigarettes 0.5 15 Passive Smoke Exposure: Never Smokeless Tobacco: Never Tobacco Cessation:Counseling Given: Not Answered Alcohol Use Standard Drinks/Week Comments Yes 42 [...] Sign Reading Time Taken Comments Blood Pressure 110/66 05/24/2023 11:47 AM EDT Pulse 113 05/24/2023 11:47 AM EDT Temperature 36.7 C (98 F) 05/24/2023 11:47 AM EDT Respiratory Rate 16 05/24/2023 11:47 AM EDT Oxygen Saturation - - Inhaled Oxygen Concentration - - Weight 98.4 kg (217 lb) 05/24/2023 11:47 AM EDT Height - - Body Mass Index 30.27 04/06/2023 12:28 PM EDT documented in this [...] as of this encounter Progress Notes * Sharon Ioana Bowling, DO - 05/24/2023 12:04 PM EDT Subjective: Braxton Roe is a 37 year old male. Chief Complaint Patient presents with Acute Pt here for knee injury from ladder and need return to work note has no pain at this time, has beenoff week and a half. Has some bruising on his Lt knee and none on Rt There are no exam notes on file for this visit. HPI: This is a 37 year old male with PMHx as below presents with acute illness Recently fell at work off of a ladder approx 2-3ft high Landed on knees Pos bruising but feeling improved and needs return note for work Pos tachy noted on vitals - chronic - pt asx, PCP aware Health Maintenance Due Topic Date Due COVID-19 Vaccine (1) Never done Pneumococcal Vaccine: Pediatrics (0 to 5 Years) and At-Risk Patients (6 to 64 Years) (1 - PCV) Never done Depression Screening, Annual for Pts 12 and Over Never done DTaP,Tdap,and Td Vaccines (2 - Tdap) 10/10/2019 Patient Active Problem List Diagnosis Code ADVANCE [...] Current Outpatient Medications Medication Sig Dispense Refill K Phos [place]-Sod Phos Di & [place] 155-852-130 MG Oral Tablet (K-Phos Neutral) Take 2 Tablets by mouth 3 times a day. Vitamin B-1 100 MG Oral Tablet Take 1 Tablet by mouth in the morning. Multi-Vitamins Oral Tablet Take 1 Tablet by mouth daily at noon. 30 Tablet 3 Folic Acid 1 MG Oral Tablet Take 1 Tablet by mouth in the morning. 90 Tablet 1 Spironolactone 100 MG Oral [...] esophageal varices, portal hypertensive gastropathy / INPT [facility] Review of patient's allergies indicates: Allergen Reactions Penicillins Rash Other reaction(s): UNKNOWN Amoxicillin Rash Tylenol [Acetaminophen] Nausea/vomiting, Other (Please comment) and Rash Shortness of breath Family History Problem Relation Age of Onset Colon cancer Grandmother (Maternal) Stroke Mother Family Status Relation Status PGFA at age 55 ND MGFA DM PGMA Alive MGMA at age 72 Mo Alive thyroid disease Fa Alive HTN Sis Alive Mitali Alive Mitali Alive Social History Socioeconomic History Marital status: Single Spouse name: Not on file Number of children: 2 Years of education: Not on file Highest education level: Not on file Occupational History Occupation: [employer] Employer: [employer] Tobacco Use Smoking status: Former Packs/day: 0.50 Years: 15.00 Pack years: 7.50 Types: Cigarettes Passive exposure: Never Smokeless tobacco: Never Substance and Sexual Activity Alcohol use: Yes Alcohol/week: 42.0 standard drinks Types: 42 12 oz of beer per week Comment: 6 beers per day, pt states he quit drinking in january 2019 Drug use: No Sexual activity: Yes Partners: Female Other Topics Concern Service No Blood Transfusions No Caffeine Concern No Occupational Exposure Yes Hobby Hazards No Sleep Concern No Stress Concern Yes Weight Concern No Special Diet No Back Care Yes Exercise Yes Bike Helmet Not Asked Seat Belt Yes Self-Exams Not Asked Social History Narrative Not on file Social Determinants of Health Financial Resource Strain: Not on file Food Insecurity: Not on file Transportation Needs: Not on file Physical Activity: Not on file Stress: Not on file Social Connections: Not on file Intimate Partner Violence: Not on file Housing Stability: Not on file Review of Systems: As per HPI all other ROS negative. Wt Readings from Last 3 Encounters: 05/24/23 98.4 kg (217 lb) 04/06/23 103.7 kg (228 lb 9.6 oz) 02/28/23 104.5 kg (230 lb 4.8 oz) Results for orders placed or performed in visit on 04/06/23 PT INR Result Value Ref Range Prothrombin Time 18.3 (H) 11.6 - 15.2 seconds INR 1.5 (H) 0.8 - 1.2 PHOSPHORUS Result Value Ref Range Phosphorus 2.3 (L) 2.5 - 4.8 mg/dL CBC Result Value Ref Range WBC 5.66 4.00 - 10.80 K/uL RBC 3.69 4.50 - 5.25 M/uL HGB 13.4 (L) 14.0 - 16.8 g/dL HCT 39.6 (L) 40.0 - 48.4 % MCV 107.3 82.0 - 99.5 fL MCH 36.3 27.0 - 34.0 pg MCHC 33.8 32.0 - 36.0 g/dL RDW 13.5 11.5 - 15.5 % PLT 86 (L) 140 - 400 K/uL MPV 11.4 6.6 - 11.1 fL nRBCs 0 <=0 /100 WBCs DIFFERENTIAL, AUTOMATED Result Value Ref Range WBC 5.66 4.00 - 10.80 K/uL Neutrophils % 57.9 40.0 - 75.0 % Lymphocytes % 28.4 18.0 - 42.0 % Monocytes % 10.1 1.0 - 11.0 % Eosinophils % 2.3 0.0 - 6.0 % Basophils % 0.9 0.0 - 2.0 % Immature Granulocytes % 0.4 0.0 - 2.0 % Absolute Neutrophils 3.28 1.80 - 7.70 K/uL Absolute Lymphocytes 1.61 1.00 - 4.80 K/ul Absolute Monocytes 0.57 0.00 - 1.10 K/uL Absolute Eosinophils 0.13 0.00 - 0.70 K/uL Absolute Basophils 0.05 0.00 - 0.20 K/uL Absolute Immature Granulocytes 0.02 0.00 - 0.20 K/uL BILIRUBIN, DIRECT Result Value Ref Range Bilirubin, Direct 4.1 (H) 0.0 - 0.3 mg/dL OBJECTIVE: Physical Exam: BP 110/66 | Pulse 113 | Temp 36.7 C (98 F) (Tympanic) | Resp 16 | Wt 98.4 kg (217 lb) | BMI 30.27 kg/m | BSA 2.22 m General: alert, healthy, and no distress Extremities: less than 2 second capillary refill, no joint deformities, effusion, or inflammation, no edema Acute pain of both knees (Primary) - RETURN TO WORK OR SCHOOL Sharon Bowling DO documented in this encounter Plan of Treatment Upcoming Encounters Date Type Specialty Care Team Description 06/24/2023 Hospital Encounter Endoscopy Isabelle De Guzman DO [address] [place] [address] 06/24/2023 Surgery Endoscopy Isabelle De Guzman DO [address] [place] [address] ESOPHAGOGASTRODUODENOSCOPY (EGD), FLEXIBLE, TRANSORAL, DIAGNOSTIC 07/07/2023 Office Visit Family Medicine Adan Muniz MD [address] [place] [address] [place] [address] Scheduled Procedures Name Priority Associated Diagnoses Date/Ti [...] as of this encounter Visit Diagnoses Diagnosis Acute pain of both knees- Primary Alcoholic hepatitis with ascites Acute alcoholic hepatitis Alcoholic cirrhosis of liver with ascites (HCC) Alcoholic cirrhosis of liver documented in this encounter Advance Directives Latest Code Status on File Code Status Date Activated Date Inactivated Comments Full Code 01/20/2019 11:57 PM 01/27/2019 6:54 PM This order reflects the patients wishes and were consensually agreed upon. Care Teams Marionette Performer Relationship Specialty Start Date End Date Adan Muniz MD [address] [place] [address] [place] [address] PCP - General Family Medicine 02/22/23 documented as of this encounter"
--- OUTSIDE RECORDS SUMMARY | 2023-09-27 21:04 | External Medical Summary | Summary of Care ---
Author Name Unknown Organization [facility] [address] [facility] [address] Phone [phone] Care Team Providers Care Strip Mine Supervisor Name Role Phone Adan Muniz MD Primary Care Provide r Reason for Visit * Reason Onset Date Comments Abnormal Lab Results 04/07/2023 K Encounter Details Date Type Department Care Team Description 04/07/2023 Telephone Hepatology, [facility] [address] [place] [address] Isabelle De Guzman DO [address] [place] [address] Abnormal Lab Results (K) Allergies Active Allergy [...] before bedtime. 0 02/17/2023 Active K Phos [place]-Sod Phos Di & [place] 155-852-130 MG Oral Tablet (K-Phos Neutral) Take [...] Guzman DO [address] [place] [address] 06/24/2023 Hospital Encounter Endoscopy Isabelle De Guzman DO [address] [place] [address] 06/24/2023 Surgery Endoscopy Isabelle De Guzman DO [address] [place] [address] ESOPHAGOGASTRODUODENOSCOPY (EGD), FLEXIBLE, TRANSORAL, DIAGNOSTIC 07/07/2023 Office Visit Family Medicine Adan Muniz MD [address] [place] [address] [place] [address] Scheduled Orders Name Type Priority Associated Diagnoses [...] and were consensually agreed upon. Care Teams Strip Mine Supervisor Relationship Specialty Start Date End Date Adan Muniz MD [address] [place] [address] [place] [id number] PCP - General Family Medicine 02/22/23 documented as of this encounter
--- OUTSIDE RECORDS SUMMARY | 2023-09-27 21:04 | External Medical Summary | Summary of Care ---
Author Name Unknown Organization [facility] Address [address] [place] [address] Phone [phone] Care Team Providers Care Reel And Rewinder Operator Name Role Phone Adan Muniz MD Primary Care Provide r Reason for Visit * Reason Onset Date Comments Test Results 04/08/2023 Abnormal K+ Encounter Details Date Type Department Care Team Description 04/08/2023 Telephone Family Medicine [address] [address] Adan Muniz MD [address] [place], [place] [address] [address] Test Results (Abnormal K+) Allergies Active Allergy Reactions Severity Noted Date Comments Amoxicillin Rash 10/20/2017 Penicillins Rash High 10/20/2017 Other reaction(s): UNKNOWN Acetaminophen Nausea/vomiting,Othe r (Please comment),Rash 10/20/2017 Shortness of breath documented as of this encounter (statuses as of 04/13/2023) Medications Medication Sig Dispensed Refills Start Date End Date Status Potassium Chloride Vilma ER 20 MEQ Oral Tablet Extended Release Take 1 Tablet by mouth in the morning and 1 Tablet before bedtime. 0 02/17/2023 Active K Phos [place]-Sod Phos Di & [place] 155-852-130 MG Oral Tablet (K-Phos Neutral) Take [...] as of this encounter (statuses as of 04/13/2023) Active Problems Problem Noted Date Alcoholic hepatitis [...] as of this encounter (statuses as of 04/13/2023) Resolved Problems Problem Noted Date Resolved Date SBP (spontaneous bacterial peritonitis) 01/24/20 19 02/22/2023 DVT (deep venous thrombosis) 01/21/2019 Overview: In 2017 - treated for 3 months with AC Alcohol abuse 01/21/2019 08/16/2022 Coagulation defect 01/21/2019 08/16/2022 Cellulitis, abdominal wall 01/21/201908/16 Reflux esophagitis 01/15/2006 04/30/2011 documented as of this encounter (statuses as of 04/13/2023) Immunizations Name Administration Dates Next Due DTaP [...] encounter Miscellaneous Notes * Telephone Encounter - Tiffanie Ross RN - 04/13/2023 12:09 PM EDT Pt states he is taking the potassium supplement as ordered. He will try to get into the lab a day this week to have labs repeated * Telephone Encounter - Adan Muniz MD [...] De Guzman, [address] [place] [address] 06/24/2023 Hospital Encounter Endoscopy Isabelle De Guzman DO [address] [place] [address] 06/24/2023 Surgery Endoscopy Isabelle De Guzman DO [address] [place] [address] ESOPHAGOGASTRODUODENOSCOPY (EGD), FLEXIBLE, TRANSORAL, DIAGNOSTIC 07/07/2023 Office Visit Family Medicine Adan Muniz MD [address] [place] [address] [place] [address] Scheduled Orders Name Type Priority Associated Diagnoses [...] and were consensually agreed upon. Care Teams Reel And Rewinder Operator Relationship Specialty Start Date End Date Adan Muniz MD [address] [place] [address] [place] [address] PCP - General Family Medicine 02/22/23 documented as of this encounter
--- OUTSIDE RECORDS SUMMARY | 2023-09-27 21:04 | External Medical Summary ---
Author Name Unknown Address Unknown Organization K01:[facility] - [address] [place] [address] Laboratory Report Ordering Provider Test Date Status MARCELA ZABALA 04/06/2023 13:02:44 Susan l Observation Date Value Abnormality Reference (Units ) Status BUN 04/06/2023 13:02:44 5 Below low normal 6-20 (mg/dL) Final Creatinine 04/06/2023 13:02:44 0.9 0.6-1.2 (mg/dL) Final Glomerular filtration rate/1.73 sq M.predicted [Volume Rate/Area] in Serum, Plasma or Blood by Creatinine-based formula (CKD-EPI) 04/06/2023 13:02:44 >90 >=60 (mL/min) Final eGFR is calculated based on the CKD-EPI 2020 equation SODIUM 04/06/2023 13:02:44 139 135-146 (m mol/L) Final Potassium 04/06/2023 13:02:44 2.9 Below low normal 3.5 -5.1 (mmol/L) Final Cl 04/06/2023 13:02:44 103 98-107 (mm ol/L) Final CO2 04/06/2023 13:02:44 26 22-32 (mmo l/L) Final Anion gap 04/06/2023 13:02:44 10 7-15 (mmol /L) Final Glucose 04/06/2023 13:02:44 93 70-120 (mg /dL) Final Albumin 04/06/2023 13:02:44 3.0 Below low normal 3.8 -5.0 (g/dL) Final AST (Aspartate aminotransferase) 04/06/2023 13:02:44 67 Above high normal 10-50 (U/L) Final Alk Phos 04/06/2023 13:02:44 204 Above high normal 35 -130 (U/L) Final Bilirubin, Total 04/06/2023 13:02:44 7.3 Above high no rmal <=1.2 (mg/dL) Final Calcium 04/06/2023 13:02:44 8.6 8.4-10.2 ( mg/dL) Final Protein 04/06/2023 13:02:44 6.7 6.0-8.3 (g /dL) Final ALT (Alanine aminotransferase) 04/06/2023 13:02:44 43 10-50 (U/L) Power aldana Performing Location [facility] - [address] [facility] [address]
--- OUTSIDE RECORDS SUMMARY | 2023-09-27 21:05 | External Medical Summary ---
Author Name Unknown Address Unknown Organization K01:LABORATORY [facility] [place] - [address] [facility] [address] Laboratory Report Ordering Provider Test Date Status SUSSY HOLLEY 04/06/2023 13:02:44 Final Observation Date Value Abnormality Reference (Units ) Status SYNC LEUKOCYTES IN BLOOD BY AUTOMATED COUNT 04/06/2023 13:02:44 5.66 4.00-10.80 (K/uL) Final Segs 04/06/2023 13:02:44 57.9 40.0-75.0 (%) Final Lymphs % 04/06/2023 13:02:44 28.4 18.0-42.0 (%) Final Monos 04/06/2023 13:02:44 10.1 1.0-11.0 (%) Final Eosinophils 04/06/2023 13:02:44 2.3 0.0-6.0 (%) Final Basos 04/06/2023 13:02:44 0.9 0.0-2.0 (%) Final Immature Granulocyte, Percent 04/06/2023 13:02:44 0.4 0.0-2.0 (%) Final Absolute Segs 04/06/2023 13:02:44 3.28 1.80-7.70 (K/uL) Final Lymphs, absolute 04/06/2023 13:02:44 1.61 1.00-4.80 (K/ul) Final Monos, Abs 04/06/2023 13:02:44 0.57 0.00-1.10 (K/uL) Final Eos, Abs 04/06/2023 13:02:44 0.13 0.00-0.70 (K/uL) Final Basos, Abs 04/06/2023 13:02:44 0.05 0.00-0.20 (K/uL) Final Immature Granulocytes, Number 04/06/2023 13:02:44 0.02 0.00-0.20 (K/uL) Final Performing Location LABORATORY [facility] - [address] [facility] [address]
--- OUTSIDE RECORDS SUMMARY | 2023-09-27 21:05 | External Medical Summary ---
Author Name Unknown Address Unknown Organization [id number]:LABORATORY [facility] [place] - [address] [place] [address] Laboratory Report Ordering Provider Test Date Status SUSSY HOLLEY 04/06/2023 13:02:44 Final Warfarin Therapy
INR: 2 .0-3.0 conventional anticoagulation
INR: 2.5- 3.5 high intensity anticoagulation Observation Date Value Abnormality Reference (Units ) Status PT 04/06/2023 13:02:44 18.3 Above high normal 11 .6-15.2 (seconds) Final INR 04/06/2023 13:02:44 1.5 Above high normal 0. 8-1.2 Final Performing Location LABORATORY [facility] [place] - [address] [place] [address]
--- OUTSIDE RECORDS SUMMARY | 2023-09-27 21:05 | External Medical Summary ---
Author Name Unknown Address Unknown Organization [id number]:[facility]ORY [facility] [place] [address] [place] [address] Laboratory Report Ordering Provider Test Date Status SUSSY HOLLEY 04/06/2023 13:02:44 Final Observation Date Value Abnormality Reference (Units ) Status Bilirubin, Direct 04/06/2023 13:02:44 4.1 Above high normal 0.0-0.3 (mg/dL) Final Performing Location LAB[facility]ATORY [facility] [place] [address] [place] [address]
--- OUTSIDE RECORDS SUMMARY | 2023-09-27 21:05 | External Medical Summary ---
Author Name Unknown Address Unknown Organization [id number]:LABORATORY [facility] [place] - [facility] [address] [facility] [address] Laboratory Report Ordering Provider Test Date Status SUSSY HOLLEY 04/06/2023 13:02:44 Final Observation Date Value Abnormality Reference (Units ) Status WBC, Total 04/06/2023 13:02:44 5.66 4.00-10.80 (K/uL) Final RBC 04/06/2023 13:02:44 3.69 4.50-5.25 (M/uL) Final Hemoglobin 04/06/2023 13:02:44 13.4 Below low normal 14.0-16.8 (g/dL) Final HCT 04/06/2023 13:02:44 39.6 Below low normal 40.0-48.4 (%) Final MCV 04/06/2023 13:02:44 107.3 82.0-99.5 (fL) Final MCH 04/06/2023 13:02:44 36.3 27.0-34.0 (pg) Final MCHC 04/06/2023 13:02:44 33.8 32.0-36.0 (g/dL) Final RDW 04/06/2023 13:02:44 13.5 11.5-15.5 (%) Final Platelets 04/06/2023 13:02:44 86 Below low normal 140-400 (K/uL) Final MPV 04/06/2023 13:02:44 11.4 6.6-11.1 (fL) Final Nucleated erythrocytes/100 leukocytes [Ratio] in Blood by Automated count 04/06/2023 13:02:44 0 <=0 (/100 WBCs) Final Performing Location LABORATORY [facility] [place] - [facility] [address] [facility] [address]
--- OUTSIDE RECORDS SUMMARY | 2023-09-27 21:05 | External Medical Summary ---
Author Name Unknown Address Unknown Organization K01:LABORATORY [facility] [place] - [address] [place] [address] Laboratory Report Ordering Provider Test Date Status MARCELA ZABALA 04/06/2023 13:02:44 Susan l Observation Date Value Abnormality Reference (Units ) Status Phosphate 04/06/2023 13:02:44 2.3 Below low normal 2.5 -4.8 (mg/dL) Final Performing Location LABORATORY [facility] [place] - [address] [place] [address]
[2023-09-27] MEDS ORDERED: AcetylCYSTEINE 10,000 MG in D5W 1L (Maint Dose #2) IV SCH (22:00)
[2023-09-27] MEDS ORDERED: SODIUM CHLORIDE 0.9% IV SCH (23:00)
[2023-09-27 23:20] LABS: Appearance Urine Cloudy (Clear); Blood Urine Negative (Negative); Color Urine Dark Yellow; Glucose Urine UA Negative (Negative); Ketones Urine Trace (Negative); Leukocyte Esterase Urine Trace (Negative); Nitrite Urine Positive (Negative); Protein Urine Negative (Negative); Specific Gravity Urine 1.014 (1.000-1.030); Urobilinogen Urine Negative (Negative); WBC Urine Automated >30 /hpf (0-5)
[2023-09-27 23:29] LABS: Bilirubin Urine 3+ (Negative)
--- NOTE | 2023-09-27 23:33 | Electrocardiogram Report ---
Test Reason : Blood Pressure : / mmHG Vent. Rate : 102 BPM Atrial Rate : 102 BPM P-R Int : 130 ms QRS Dur : 084 ms QT Int : 416 ms P-R-T Axes : 065 041 -16 degrees QTc Int : 542 ms Sinus tachycardia Possible Inferior infarct , age undetermined Prolonged QT Nonspecific T wave abnormality Abnormal ECG When compared with ECG of 13-FEB-2023 19:24, Borderline criteria for Inferior infarct are now Present Nonspecific T wave abnormality now evident in Anterolateral leads Confirmed by Casey Cruz ([id number]) on 09/27/2023 11:32:58 PM Referred By: REFERRED SELF Confirmed By:Casey Cruz
[2023-09-27 23:37] LABS: Anion Gap 10 (3-11); Calcium 7.8 mg/dl (8.6-10.3); Carbon Dioxide 27 mmol/L (21-32); Chloride 83 mmol/L (98-107); Glucose 68 mg/dl (70-99(Fasting)); Potassium 2.7 mmol/L (3.5-5.1); Sodium 120 mmol/L (136-145)
[2023-09-28 00:04] LABS: Urine Chloride < 15 mmol/L; Urine Potassium 43.8 mmol/L; Urine Sodium < 10 mmol/L
[2023-09-28] MEDS ORDERED: POTASSIUM CHLORIDE CRTAB 20 MEQ TABCR PO STA (00:32)
[2023-09-28 00:33] LABS: Cast Urine Automated >30 /lpf (0-5)
[2023-09-28 00:34] LABS: White Blood Cell Casts Urine 20-30 /lpf (0)
[2023-09-28 00:35] LABS: Bacteria Urine Automated 1+ (Negative)
[2023-09-28] MEDS: POTASSIUM CHLORIDE / WTR 10 MEQ/100 ML PLCT IV SCH ×2 (02:25→03:20)
[2023-09-28 02:52] LABS: Anion Gap 10 (3-11); Calcium 7.5 mg/dl (8.6-10.3); Carbon Dioxide 26 mmol/L (21-32); Chloride 85 mmol/L (98-107); Glucose 109 mg/dl (70-99(Fasting)); Potassium 2.8 mmol/L (3.5-5.1); Sodium 121 mmol/L (136-145)
[2023-09-28 06:49] LABS: Hematocrit (blood only) 28.7 % (42.0-52.0); Hemoglobin 10.4 g/dl (14.0-18.0); Mean Corpuscular Hemoglobin 36.1 pg (25.0-34.0); Mean Corpuscular Hgb Conc 36.2 g/dL (32.0-36.0); Mean Corpuscular Volume 99.7 fL (80.0-100.0); Mean Platelet Volume 10.3 fL (9.4-12.4); Platelet Count 44 K/uL (130-400); RDW Coefficient of Variation 16.3 % (11.5-14.5); RDW Standard Deviation 59.5 fL (36.4-46.3); Red Blood Count 2.88 M/uL (4.70-6.10); White Blood Count 9.82 K/ul (4.8-10.8)
[2023-09-28 07:53] LABS: Anion Gap 7 (3-11); Calcium 7.4 mg/dl (8.6-10.3); Carbon Dioxide 28 mmol/L (21-32); Chloride 86 mmol/L (98-107); Glucose 143 mg/dl (70-99(Fasting)); Potassium 3.1 mmol/L (3.5-5.1); Sodium 121 mmol/L (136-145)
[2023-09-28] MEDS: MULTIVITAMIN TAB PO SCH (07:56)
[2023-09-28] MEDS: FOLIC ACID 1 MG TAB PO SCH (07:57)
[2023-09-28] MEDS: THIAMINE HCL 100 MG TAB PO SCH (07:57)
[2023-09-28] MEDS ORDERED: POTASSIUM CHLORIDE CRTAB 20 MEQ TABCR PO ONE (07:58)
[2023-09-28] MEDS: prednisoLONE sod phosphate 15 MG/5 ML PO SCH (08:39)
--- NOTE | 2023-09-28 12:03 | Gastrointestinal Consultation ---
Date of Consultation September 28, 2023 Assessment & Plan (1) Alcoholic hepatitis: (2) Alcoholic cirrhosis: Plan 1. Low salt diet. 2. Continue w prednisolone 40mg daily. 3. Liver US ordered - to verify no bile duct obstruction. (also due for screening for HCC - so US will likely be adequate for that). 4. Watch for s/s ETOH withdraw. Suspect more alcohol use that reported because clinically this appears as expected w ETOH hepatitis. 5. LFTs lan. 6. Due to low platelet count would avoid procedure unless absolutely necessary (platelets of 44). 7. Appreciate primary hospitalists management of hyponatremia - Na very low 119- >121 and because lab is unable to provide a creatinine level due to icterus sample so we don't really know his renal status - would consider nephrology consult but will defer to primary. 8. Will continue to follow. Supervising Physician Co-Signing Physician Notes Patient was seen and examined on 09/28 with DORIS Izquierdo whose note reflects our findings and plan. History of Present Illness Reason for Consultation: ETOH cirrhosis Requesting Physician: Sharon Chamberlain NP Attending Physician: Bronson De Oliveira MD History of Present Illness Braxton Roe is a 37 year old M with history of decompensated ETOH cirrhosis (EV, ascited on diuretics: furosemide 40, spironolactone 100 both QAM) who presented to the ED on 09/27 for enlarging abd girth, worsening yellow skin and eyes. He says that he has been abstinent since his last admission in February but that he drank just 4oz of a drink 5 days prior to admission. His reports his skin becoming yellow about 3 days ago. He has seen Jeanne Ruiz NP, then Dr. De Guzman in hepatology clinic this year but no showed the most recent office visit in May. An EGD is scheduled for Nov 2023. Most recent EGD was in 2016 with large varices that were not banded. Most recent paracentesis done in February, just 700 cc removed. On arrival, T Bili is very high at 27, Pt24. His DF score is 82 and he was started on Prednisolone 40mg daily. We are unable to calculate a MELD score as creatinine could not be calculated due to icteric blood sample. He did not have a significant blood ETOH level and US did not show significant ascites. NAC was started but he had a hypotensive reaction and it was DC'ed and listed as a med allx. He is mildly tachycardica at 114. No tremor or asterix. He is awake, alert, oriented, tells me that he had a recent 7lbs weight gain, that he feels like his abd is large but that otherwise no discomfort, no confusion, no fevers, No N/V and no blood in his BMs. Allergies Allergy/AdvReac Type Severity Reaction Status Date / Time acetaminophen Allergy Intermediate ELEVATED Verified 02/13/23 19:30 FEVER amoxicillin Allergy Intermediate UNKNOWN Verified 02/13/23 19:30 Penicillins Allergy Intermediate UNKNOWN Verified 02/13/23 19:30 acetylcysteine AdvReac Difficulty Verified 09/27/23 19:30 Breathing Home Medications Medication Instructions Recorded Confirmed Type folic acid 1 mg tablet 1 mg PO QAM #30 tabs 02/17/23 09/27/23 Rx furosemide 40 mg tablet 40 mg PO QAM #30 tabs 02/17/23 09/27/23 Rx multivitamin with folic acid 400 1 tab PO QAM #30 tabs 02/17/23 09/27/23 Rx mcg tablet (Daily-Paul (with folic acid)) spironolactone 100 mg tablet 100 mg PO QAM #30 tabs 02/17/23 09/27/23 Rx Patient History Medical History Thrombocytopenia Alcohol use disorder Alcoholic hepatitis Ascites Esophageal varices History of deep venous thrombosis Liver cirrhosis SBP (spontaneous bacterial peritonitis) Surgical History No significant past surgical history Family History Grandmother (Maternal) Colorectal cancer Mother Stroke Social History Smoking Status: Former smoker Tobacco Type: Cigarettes Second Hand Exposure: No; Do You Dip or Chew Tobacco: No; Hx Alcohol Use: Yes Alcohol type: wine Hx Substance Use: No Preferred Language: Estonian Communication Ability: Effective Communication Ability Comment: verbal Fun House Operator Required: No Beliefs That Will Affect Care: None Current Living Situation: Family Current Living Situation Comment: with two teenage daughters Other Information That Helps Us Care for You: No Feels Safe at Home: Yes Safety Concerns: Feels Safe At This Time Assistive Devices: None Review of Systems Review of Systems: ROS: Gen: Denies weakness, fevers, weight loss Eyes: No eye redness, or pain, no recent vision changes Resp: No SOB, no cough Cardio: No palpitations/irregular beats, no chest pain GI: + increasing abd girth but no pain, no N/V or diarrhea. : Denies pain on urination Skin: +++ jaundice, No itching no rashes or lesions. Physical Exam Constitutional: well developed, well nourished, + ill appearing and + overweight Eyes: Eyes: PEARLA: very icteric ENMT: external ear and nose normal, oropharynx normal Neck: trachea midline, no thyromegaly Respiratory: normal respiratory effort, lungs clear to auscultation Gastrointestinal (Abdomen): Abd w mild/mod ascites, soft, non tender Neurologic: PERRL, EOMI, accommodation nl, no face palsy, no dysarthria Psychiatric: A+Ox3, euthymic affect Lymphatic: no cervical or axillary lymphadenopathy Results & Data Vital Signs (Past 12 Hours) Vital Signs Temp Pulse Pulse Resp BP Pulse Ox O2 Del Method 09/28/23 11:10 37.1 C 114 H 18 110/62 94 Room Air 09/28/23 08:00 110 H 09/28/23 08:00 Room Air 09/28/23 06:43 37.0 C 110 H 20 110/55 L 95 Room Air 09/28/23 03:25 36.7 C 114 H 20 98/49 L 96 Room Air Laboratory Results WBC 9, Hb 10.4, HCT 28.7, PLT 44, PT 24, INR 2.3, NA 121, K3.1, CL 86, CO2 28. T. bili 27.7, AST 138, ALT 73, alk phos 195 Diagnostic Findings Abd US for ascites only 09/27/23: FINDINGS/IMPRESSION: Nodular contour of the liver compatible with cirrhosis. Small ascites is seen. (1) Alcoholic hepatitis Ascites presence: with ascites Qualified Code(s): K70.11 - Alcoholic hepatitis with ascites
[2023-09-28] MEDS: cefTRIAXone SODIUM 2,000 MG in DEXTROSE 5 % MINI-B 50 ML IV SCH (12:17)
--- NOTE | 2023-09-28 13:38 | Nephrology Consultation ---
Date of Consultation September 28, 2023 Assessment & Plan (1) Hyponatremia: (2) Hypokalemia: Both sodium and potassium was very low on admission at 119 and 2.4 respectively. He claims he was taking his outpatient Lasix 40 and spironolactone 100. On detailed questioning patient drinks massive amount of liquid----he drinks about 1 gallon of cranberry juice per day as well as 6 bottles of 16 ounce water which would be 96 ounce plus some coffee. So altogether daily fluid intake is more than 2 gallons. He does have some ascites as well as lower extremity edema which means this is a case of hypervolemic hyponatremia in the setting of decompensated liver cirrhosis significantly worsened by super massive intake of fluid of more than 2 gallons per day Recommendation #1 Lasix 30 mg IV every 8 hours. #2 spironolactone 50 mg twice daily #3 we do need to control his potassium also especially now that we are planning to give Lasix. He can take oral so oral would be easier-40 mEq twice daily. Hopefully with spironolactone and potassium supplement will be able to maintain better potassium #4 do not give IV fluid of any type #5 eventually would like to know his serum creatinine. #6 continue fluid restriction of 1500 mill per day (3) Decompensated hepatic cirrhosis: History of Present Illness Reason for Consultation: Hyponatremia Attending Physician: Bronson De Oliveira MD History of Present Illness 37-year-old male who presented to the hospital yesterday because of increasing abdominal distention increasing jaundice some weight gain as well as some lower extremity edema. He has history of alcoholic cirrhosis, alcoholic hepatitis, esophageal varices, ascites, SBP, history of DVT s/p Coumadin therapy. In the ED, labs show - t. bili 27.7, AST 1238, ALT 73, alk phos 195 Abdominal US shows small amount of ascites. Sodium was very low at 119 . Maddrey's discriminant function score 55, unable to calculate MELD due to unavailable creatinine due to icteric sample. NAC infusion ordered for alcoholic hepatitis and started in the ED but shortly after initiation of infusion, patient became hypotensive, short of breath, and complaint of pain between his shoulder blades. Infusion was promptly stopped by nursing and then blood pressure and symptoms improved. He received some dextrose water with NAC infusion but also normal saline. Sodium is still low at 121. His potassium was very low at 2.4 and even now it is still low at 3.1. Patient says he was taking Lasix 40 daily as well as spironolactone 100 daily at home. He is making urine now but it is hard to tell how much. Blood pressure is somewhat better but heart rate still fast. He was able to give me pretty detailed account of his medical history He claims his last alcohol intake which was 1 glass of wine about 3 weeks ago. His toxic screen was was unremarkable with normal blood alcohol level. Review of system-----positive for increasing jaundice and abdominal distention. Other than that he denied any symptom. 12 systems reviewed and otherwise negative Physical examination-----obese young white male who is not in any respiratory distress. Awake alert oriented x 3 and able to give detailed account of his medical history Mucous membrane is moist prominent icterus noted Chest bilateral decreased breath sound occasional crackles CVS S1 and S2 regular tachycardia Abdomen is distended with obesity as well as some ascites Extremities shows 1+ edema pitting type type. Sacral edema positive Skin shows icterus Neurologically awake alert oriented x 3 normal speech normal conversation Allergies Allergy/AdvReac Type Severity Reaction Status Date / Time acetaminophen Allergy Intermediate ELEVATED Verified 02/13/23 19:30 FEVER amoxicillin Allergy Intermediate UNKNOWN Verified 02/13/23 19:30 Penicillins Allergy Intermediate UNKNOWN Verified 02/13/23 19:30 acetylcysteine AdvReac Difficulty Verified 09/27/23 19:30 Breathing Home Medications Medication Instructions Recorded Confirmed Type folic acid 1 mg tablet 1 mg PO QAM #30 tabs 02/17/23 09/27/23 Rx furosemide 40 mg tablet 40 mg PO QAM #30 tabs 02/17/23 09/27/23 Rx multivitamin with folic acid 400 1 tab PO QAM #30 tabs 02/17/23 09/27/23 Rx mcg tablet (Daily-Paul (with folic acid)) spironolactone 100 mg tablet 100 mg PO QAM #30 tabs 02/17/23 09/27/23 Rx Patient History Medical History Thrombocytopenia Alcohol use disorder Alcoholic hepatitis Ascites Esophageal varices History of deep venous thrombosis Liver cirrhosis SBP (spontaneous bacterial peritonitis) Surgical History No significant past surgical history Family History Grandmother (Maternal) Colorectal cancer Mother Stroke Social History Smoking Status: Former smoker Tobacco Type: Cigarettes Second Hand Exposure: No; Do You Dip or Chew Tobacco: No; Hx Alcohol Use: Yes Alcohol type: wine Hx Substance Use: No Preferred Language: Bengali Communication Ability: Effective Communication Ability Comment: verbal Motor Polarizer Required: No Beliefs That Will Affect Care: None Current Living Situation: Family Current Living Situation Comment: with two teenage daughters Other Information That Helps Us Care for You: No Feels Safe at Home: Yes Safety Concerns: Feels Safe At This Time Assistive Devices: None Results & Data Vital Signs (Past 12 Hours) Vital Signs Temp Pulse Pulse Resp BP Pulse Ox O2 Del Method 09/28/23 11:10 37.1 C 114 H 18 110/62 94 Room Air 09/28/23 08:00 110 H 09/28/23 08:00 Room Air 09/28/23 06:43 37.0 C 110 H 20 110/55 L 95 Room Air 09/28/23 03:25 36.7 C 114 H 20 98/49 L 96 Room Air Laboratory Results Reviewed in detail
[2023-09-28] MEDS: FUROSEMIDE INJ 20 MG/2 ML VIAL IV SCH ×2 (14:22→21:45)
[2023-09-28] MEDS: POTASSIUM CHLORIDE CRTAB 20 MEQ TABCR PO SCH ×2 (14:22→21:44)
[2023-09-28] MEDS: SPIRONOLACTONE 25 MG TAB PO SCH ×2 (14:22→21:44)
--- NOTE | 2023-09-28 14:42 | Ultrasound Report ---
US liver CLINICAL HISTORY: el LFTs, cirrhosis, r/o lesion or bile duct obst TECHNIQUE: Multiple real-time sonographic images of the right upper quadrant were obtained. Comparison: Comparison is made to ascites ultrasound 09/27/2023 and MRCP 08/09/2022 FINDINGS: The liver is diffusely coarsened in echotexture, with a nodular contour. The liver appears shrunken i n appearance. These findings are suggestive of cirrhosis. No focal mass lesions are seen. Portal v ein appears patent. No intrahepatic ductal dilatation is seen. Gallbladder is distended with sludge and a radiodense gallstone noted. Gallbladder wall measures 6 mm. A sonographic Mitchell's sign was not elicited by the coding compliance manager. The common duct measures 0.5 cm in diameter at the level of the hepat ic artery. There is minimal prominence of the intrahepatic bile ducts. The visualized portions of th e pancreas appear normal. The right kidney shows normal echogenicity, cortical thickness and renal contour. The right kidney sh ows no evidence of hydronephrosis or mass. Abdominal varices noted. A small amount of ascites is seen, unchanged from prior exam. IMPRESSION: 1. No acute abnormality, in particular no evidence of common bile duct obstruction or acute cholecys titis. Mild prominence of the intrahepatic bile ducts is likely chronic. 2. Gallstone and gallbladder sludge is seen with negative Mitchell's sign. Gallbladder wall thickening is likely secondary to ascites. ACT 112: Negative or not required by law. Electronically signed by: Vince Garcia M.D. 09/28/2023 2:40 PM
--- NOTE | 2023-09-28 15:18 | Hospitalist Progress Note ---
Date of Service September 28, 2023 Assessment & Plan (1) Alcoholic hepatitis: (2) Alcoholic cirrhosis: Plan: Patient is a 36 yr male with H/O Alcoholic cirrhosis, alcoholic hepatitis, esophageal varices, ascites, SBP, history of DVT s/p Coumadin therapy who pres ents to the ED for evaluation of worsening abdominal distention and jaundice. Alcoholic hepatitis Alcoholic cirrhosis Hyperbilirubinemia/transaminitis/positive for secondary to above --ABD USD:Nodular contour of the liver compatible with cirrhosis. Small ascites is seen. --Liver USD:No acute abnormality, in particular no evidence of common bile duct obstruction or acute cholecystitis. Mild prominence of the intrahepatic bile ducts is likely chronic. Gallstone and gallbladder sludge is seen with negative Mitchell's sign. Gallbladder wall thickening is likely secondary to ascites. --Maddrey's discriminant function score 55, unable to calculate MELD due to unavailable creatinine due to icteric sample --NAC infusion discontinued due to intolerance --Continue prednisolone 40 mg daily Appreciate GI input Consult on alcohol abstinence Low-salt diet Monitor platelet count, currently no acute bleeding issues Monitor LFTs Continue thiamine, folic acid (3) Hyponatremia: Plan: Hypervolemic hyponatremia In setting of decompensated liver cirrhosis Presented with Na+ 119; Serum osmo 254 Sodium 121 currently Admitting provider discussed with Nephrology Dr. Schwartz. Initially planned on mixing NAC in 1/2NSS however due to reaction as above, will not be receiving NAC infusion. Rediscussed with Dr. Schwartz who recommends repeating BMP in 4 hours, Low Na+ diet, 1.5 L fluid restriction -- Continue IV Lasix, spironolactone as per nephrology Appreciate nephrology input Abnormal urinalysis, suspected UTI Urine culture pending Empirically started on Rocephin (4) Hypokalemia: Plan: Replace and monitor (5) Thrombocytopenia: Plan: Platelet 50K, at baseline In the setting of cirrhosis Monitor CBC DVT Px: SCDs for now due to thrombocytopenia CODE STATUS Full code Admission and Anticipated Discharge Date Admission Date: September 27, 2023 Subjective Patient is seen and examined bedside States having generalized weakness Also reports abdominal distention Denies any chest pain, dyspnea, dizziness, nausea, vomiting, abdominal pain Discussed with gastroenterology today No other complaints Review of Systems Review of Systems: All systems reviewed & are unremarkable except as noted in Subjective Physical Exam Physical Exam: Physical Exam: Vitals signs as noted above General Appearance:Obese, no apparent distress, ill appearing Head: normocephalic, Atraumatic Eyes: normal inspection, EOMI, +Icteric Neck: supple, Trachea midline Respiratory/Chest: Normal breath sounds, CTA, No accessory muscle use Cardiovascular: S1, S2, No murmur Abdomen/GI:Soft, Non tender, +distended, Bowel sounds present Extremities/Musculoskeletal:normal inspection, no edema Neurologic/Psych:AAOX3, grossly no focal neurological deficits Skin: normal color, warm,+Jaundice Results & Data Results & Data Vital Signs (Past 12 Hours) Vital Signs Temp Pulse Pulse Resp BP Pulse Ox O2 Del Method 09/28/23 15:11 36.8 C 113 H 19 114/63 95 Room Air 09/28/23 11:10 37.1 C 114 H 18 110/62 94 Room Air 09/28/23 08:00 110 H 09/28/23 08:00 Room Air 09/28/23 06:43 37.0 C 110 H 20 110/55 L 95 Room Air 09/28/23 03:25 36.7 C 114 H 20 98/49 L 96 Room Air Laboratory Results Short CBC 09/27/23 09/28/23 Range/Units 14:28 06:17 WBC 11.32 H 9.82 (4.8-10.8) K/ul Hgb 11.8 L 10.4 L (14.0-18.0) g/dl Hct 32.0 L 28.7 L (42.0-52.0) % Plt Count 50 L 44 L (130-400) K/uL BMP 09/27/23 09/27/23 09/27/23 14:28 17:14 22:31 Sodium 119 L* 119 L* 120 L Potassium 2.5 L* 2.4 L* 2.7 L Chloride 81 L 83 L 83 L Carbon Dioxide 29 28 27 BUN 15 16 TNP Creatinine TNP TNP TNP Glucose 105 H 98 68 L Calcium 7.7 L 7.6 L 7.8 L 09/28/23 09/28/23 02:07 06:17 Sodium 121 L 121 L Potassium 2.8 L 3.1 L Chloride 85 L 86 L Carbon Dioxide 26 28 BUN TNP TNP Creatinine TNP TNP Glucose 109 H 143 H Calcium 7.5 L 7.4 L Liver Function 09/27/23 Range/Units 14:28 Total Bilirubin 27.7 H (0.2-1.0) mg/dl AST 138 H (13-39) U/L ALT 73 H (7-52) U/L Alkaline Phosphatase 195 H (34-104) U/L Albumin 2.4 L (3.4-5.0) gm/dl Urine 09/27/23 Range/Units 22:51 Urine Color Dark Yellow Urine Appearance Cloudy A (Clear) Urine pH 6.0 (4.5-7.5) Ur Specific [place] 1.014 (1.000-1.030) Urine Protein Negative (Negative) Urine Glucose (UA) Negative (Negative) (1) Alcoholic hepatitis Ascites presence: with ascites Qualified Code(s): K70.11 - Alcoholic hepatitis with ascites
[2023-09-28 15:39] LABS: Anion Gap 7 (3-11); Calcium 7.7 mg/dl (8.6-10.3); Carbon Dioxide 27 mmol/L (21-32); Chloride 88 mmol/L (98-107); Glucose 94 mg/dl (70-99(Fasting)); Potassium 3.3 mmol/L (3.5-5.1); Sodium 122 mmol/L (136-145)
[2023-09-29] MEDS: FUROSEMIDE INJ 20 MG/2 ML VIAL IV SCH (06:16)
[2023-09-29 06:41] LABS: INR 2.7 (0.9-1.1); Prothrombin Time 27.6 Seconds (9.0-12.0)
[2023-09-29 07:21] LABS: Calcium 7.3 mg/dl (8.6-10.3); Carbon Dioxide 27 mmol/L (21-32); Chloride 92 mmol/L (98-107); Potassium 3.2 mmol/L (3.5-5.1); Sodium 124 mmol/L (136-145)
[2023-09-29 07:23] LABS: Alanine Aminotransferase 56 U/L (7-52); Aspartate Aminotransferase 97 U/L (13-39); Glucose 103 mg/dl (70-99(Fasting))
[2023-09-29 07:24] LABS: Total Protein 4.9 gm/dl (6.0-8.3)
[2023-09-29 07:26] LABS: Albumin Level 1.9 gm/dl (3.4-5.0); Anion Gap 5 (3-11); BUN Creatinine Ratio 15.8 (10-20); Creatinine Clr Calc Pharmacy 89.6 ml/min; Est GFR (African American) 70.2 ml/min; Est GFR (Non-African American) 60.6 ml/min
[2023-09-29 07:32] LABS: Bilirubin Direct 16.1 mg/dl (0-0.2)
[2023-09-29 07:47] LABS: Blood Urea Nitrogen 23 mg/dl (6-23)
[2023-09-29 08:14] LABS: Hematocrit (blood only) 28.3 % (42.0-52.0); Hemoglobin 9.9 g/dl (14.0-18.0); Mean Corpuscular Hemoglobin 35.4 pg (25.0-34.0); Mean Corpuscular Volume 101.1 fL (80.0-100.0); Mean Platelet Volume 10.1 fL (9.4-12.4); Platelet Count 43 K/uL (130-400); RDW Standard Deviation 62.2 fL (36.4-46.3); White Blood Count 9.64 K/ul (4.8-10.8)
[2023-09-29] MEDS: POTASSIUM CHLORIDE CRTAB 20 MEQ TABCR PO SCH (08:39)
[2023-09-29] MEDS: THIAMINE HCL 100 MG TAB PO SCH (08:40)
[2023-09-29] MEDS: prednisoLONE sod phosphate 15 MG/5 ML PO SCH (08:40)
[2023-09-29] MEDS: FOLIC ACID 1 MG TAB PO SCH (08:40)
[2023-09-29] MEDS: SPIRONOLACTONE 25 MG TAB PO SCH (08:40)
[2023-09-29] MEDS: MULTIVITAMIN TAB PO SCH (08:40)
--- NOTE | 2023-09-29 08:58 | Gastroenterology Progress Note ---
Date of Service September 29, 2023 Assessment & Plan (1) Alcoholic hepatitis: (2) Alcoholic cirrhosis: Plan 1. Low salt diet. 2. Appreciate primary hospitalists correction of electrolytes. 3. Absolute alcohol abstention, for the remainder of his life is the most important change he can make for his future. We talked about this at length (He denies any significant recent ETOH intake - saying just 4oz, but I suspect he is under reporting). I explained the discriminant function score, and that according the score, if he drinks again - that there is more than a 50/50 chance of dying. We also talked at length about the importance of hepatology f/u. He hadn't recalled that he missed a visit this past summer and has been lost to follow up. He agrees to a video visit in f/u w Dr. De Guzman - our office will call him to arrange. 4. Once electrolytes are in a safe range, there is no GI contraindication to discharge. He need to continue the prednisolone 40mg daily for a month. He'll be seen in Gi prior to the end of that month and we'll help him w tapering off if appropriate. Needs OP PCP f/u w LFTs in approx one week. No GI indication for antibiotics. 5. He is due for EGD for surveillance of EV. This can be arranged at hepatology f/u. He is a good candidate for liver transplant. Eval can also be arranged at hepatology f/u. I told pt to expect to undergo EGD and liver transplant w/u. 6. GI will sign off. Please recall if questions or worsening of symptoms. Admission and Anticipated Discharge Date Admission Date: September 27, 2023 Supervising Physician Co-Signing Physician Notes Patient was seen and examined with DORIS Izquierdo whose note reflects our findings and plan. Subjective Pt reports feeling well, asking to go home. Eating well. No abd pain. He does have chronic leg pain related to prior injury. Some improvement in bilirubin on prednisolone 27.7->26. transaminases also improved. WBC normalized. Review of Systems Review of Systems: ROS: Gen: Denies weakness, fevers, weight loss Eyes: No eye redness, or pain, no recent vision changes Resp: No SOB, no cough Cardio: No palpitations/irregular beats, no chest pain GI: + increasing abd girth but no pain, no N/V or diarrhea. No abd pain. : Denies pain on urination Skin: +++ jaundice, No itching no rashes or lesions. Physical Exam 2 Constitutional: well developed, well nourished, + ill appearing and + overweight Eyes: + icterus ENMT: external ear and nose normal, oropharynx normal Neck: trachea midline, no thyromegaly Respiratory: normal respiratory effort, lungs clear to auscultation Cardiovascular: RRR, no murmur, no edema Gastrointestinal (Abdomen): Normal BS. Soft, non tender, mild ascites, no masses. Neurologic: PERRL, EOMI, accommodation nl, no face palsy, no dysarthria Psychiatric: A+Ox3, euthymic affect Lymphatic: no cervical or axillary lymphadenopathy Results & Data Vital Signs (Past 12 Hours) Vital Signs Temp Pulse Pulse Resp BP Pulse Ox O2 Del Method 09/29/23 07:10 36.7 C 109 H 20 103/50 L 93 Room Air 09/29/23 03:04 37.0 C 104 H 18 101/56 L 96 Room Air 09/28/23 23:26 37.1 C 110 H 19 98/49 L 95 Room Air 09/28/23 23:00 111 H Laboratory Results WBC 9, Hb 9.9, Hct 28, Plts 43. PT 27, INR 2.7, Na 124, K 3.2, Cl 92 Co2 27, BUN 23, Cr 1.4, glucose 103. Diagnostic Findings US (-) for significant ascites 09/27/23 Liver US 09/28/23: 1. No acute abnormality, in particular no evidence of common bile duct obstruction or acute cholecystitis. Mild prominence of the intrahepatic bile ducts is likely chronic. 2. Gallstone and gallbladder sludge is seen with negative Mitchell's sign. Gallbladder wall thickening is likely secondary to ascites. (1) Alcoholic hepatitis Ascites presence: with ascites Qualified Code(s): K70.11 - Alcoholic hepatitis with ascites
--- NOTE | 2023-09-29 10:32 | Nephrology Progress Note ---
Date of Service September 29, 2023 Assessment & Plan Admission and Anticipated Discharge Date Admission Date: September 27, 2023 Subjective Assessment & Plan (1) Hyponatremia: (2) Hypokalemia: Both sodium and potassium was very low on admission at 119 and 2.4 respectively. He claims he was taking his outpatient Lasix 40 and spironolactone 100. On detailed questioning patient drinks massive amount of liquid----he drinks about 1 gallon of cranberry juice per day as well as 6 bottles of 16 ounce water which would be 96 ounce plus some coffee. So altogether daily fluid intake is more than 2 gallons. He does have some ascites as well as lower extremity edema which means this is a case of hypervolemic hyponatremia in the setting of decompensated liver cirrhosis significantly worsened by super massive intake of fluid of more than 2 gallons per day Recommendation #1 Raise Lasix 40 mg IV every 8 hours. #2 Continue spironolactone 50 mg twice daily #3 we do need to control his potassium also especially now that we are planning to give Lasix. He can take oral so oral would be easier-40 mEq twice daily. K still low so raise the dose to 40 tid. #4 do not give IV fluid of any type #5 eventually would like to know his serum creatinine---creat 1.46 so lot better than I though it would be. Bili is down #6 continue fluid restriction of 1500 mill per day #7 would like to see slightly better serum sodium before discharge. #8 does need nephrology follow-up after discharge #9 he will need a higher dose of Lasix at the time of discharge than what he was doing before as well as potassium supplement S---Feels about same. Did make more urine but not as much as I wanted. K still low. Physical examination-----obese young white male who is not in any respiratory distress. Awake alert oriented x 3 and able to give detailed account of his medical history Mucous membrane is moist prominent icterus noted Chest bilateral decreased breath sound occasional crackles CVS S1 and S2 regular tachycardia Abdomen is distended with obesity as well as some ascites Extremities shows 1+ edema pitting type type. Sacral edema positive Skin shows icterus Neurologically awake alert oriented x 3 normal speech normal conversation Results & Data Vital Signs (Past 12 Hours) Vital Signs Temp Pulse Pulse Resp BP Pulse Ox O2 Del Method 09/29/23 08:00 110 H 09/29/23 08:00 Room Air 09/29/23 07:10 36.7 C 109 H 20 103/50 L 93 Room Air 09/29/23 03:04 37.0 C 104 H 18 101/56 L 96 Room Air 09/28/23 23:26 37.1 C 110 H 19 98/49 L 95 Room Air 09/28/23 23:00 111 H
[2023-09-29] MEDS: cefTRIAXone SODIUM 2,000 MG in DEXTROSE 5 % MINI-B 50 ML IV SCH (11:30)
[2023-09-29] MEDS ORDERED: FUROSEMIDE 40 MG/4 ML VIAL IV SCH (14:00)
[2023-09-29] MEDS ORDERED: POTASSIUM CHLORIDE CRTAB 20 MEQ TABCR PO SCH (14:00)
--- NOTE | 2023-09-29 14:04 | Hospitalist Progress Note ---
Date of Service September 29, 2023 Assessment & Plan (1) Alcoholic hepatitis: (2) Alcoholic cirrhosis: Plan: Patient is a 36 yr male with H/O Alcoholic cirrhosis, alcoholic hepatitis, esophageal varices, ascites, SBP, history of DVT s/p Coumadin therapy who pres ents to the ED for evaluation of worsening abdominal distention and jaundice. Alcoholic hepatitis Alcoholic cirrhosis Hyperbilirubinemia/transaminitis/positive for secondary to above --ABD USD:Nodular contour of the liver compatible with cirrhosis. Small ascites is seen. --Liver USD:No acute abnormality, in particular no evidence of common bile duct obstruction or acute cholecystitis. Mild prominence of the intrahepatic bile ducts is likely chronic. Gallstone and gallbladder sludge is seen with negative Mitchell's sign. Gallbladder wall thickening is likely secondary to ascites. --Maddrey's discriminant function score 55, unable to calculate MELD due to unavailable creatinine due to icteric sample --NAC infusion discontinued due to intolerance --Continue prednisolone 40 mg daily Appreciate GI input Consult on alcohol abstinence Low-salt diet Monitor platelet count, currently no acute bleeding issues Monitor LFTs--slowly improving Continue thiamine, folic acid Needs follow-up with GI/hepatology upon discharge Plan to continue prednisone 40 mg daily for 1 month, then to consider tapering Needs outpatient LFTs checked in 1 week upon discharge Needs outpatient EGD for evaluation of esophageal varices (3) Hyponatremia: Plan: Hypervolemic hyponatremia In setting of decompensated liver cirrhosis Presented with Na+ 119; Serum osmo 254 Sodium 124 today Admitting provider discussed with Nephrology Dr. Schwartz. Initially planned on mixing NAC in 1/2NSS however due to reaction as above, will not be receiving NAC infusion. Rediscussed with Dr. Schwartz who recommends repeating BMP in 4 hours, Low Na+ diet, 1.5 L fluid restriction -- Continue IV Lasix, spironolactone as per nephrology Appreciate nephrology input Monitor renal function Abnormal urinalysis, suspected UTI Urine culture pending Empirically started on Rocephin (4) Hypokalemia: Plan: Replace and monitor (5) Thrombocytopenia: Plan: Platelet 50K, at baseline In the setting of cirrhosis Monitor CBC DVT Px: SCDs for now due to thrombocytopenia CODE STATUS Full code Admission and Anticipated Discharge Date Admission Date: September 27, 2023 Subjective Patient is seen and examined bedside States feeling a lot better today Generalized weakness improved Abdominal distention did improve as well Sodium improved to 124 Denies any chest pain, dyspnea, dizziness, nausea, vomiting, abdominal pain Eager to get discharged Review of Systems Review of Systems: All systems reviewed & are unremarkable except as noted in Subjective Physical Exam Physical Exam: Physical Exam: Vitals signs as noted above General Appearance:Obese, no apparent distress, ill appearing Head: normocephalic, Atraumatic Eyes: normal inspection, EOMI, +Icteric Neck: supple, Trachea midline Respiratory/Chest: Normal breath sounds, CTA, No accessory muscle use Cardiovascular: S1, S2, No murmur Abdomen/GI:Soft, Non tender, +distended, Bowel sounds present Extremities/Musculoskeletal:normal inspection, no edema Neurologic/Psych:AAOX3, grossly no focal neurological deficits Skin: normal color, warm,+Jaundice Results & Data Results & Data Vital Signs (Past 12 Hours) Vital Signs Temp Pulse Pulse Resp BP Pulse Ox O2 Del Method 09/29/23 10:51 37.2 C 107 H 18 98/55 L 94 Room Air 09/29/23 08:00 110 H 09/29/23 08:00 Room Air 09/29/23 07:10 36.7 C 109 H 20 103/50 L 93 Room Air 09/29/23 03:04 37.0 C 104 H 18 101/56 L 96 Room Air Laboratory Results Short CBC 09/29/23 Range/Units 05:34 WBC 9.64 (4.8-10.8) K/ul Hgb 9.9 L (14.0-18.0) g/dl Hct 28.3 L (42.0-52.0) % Plt Count 43 L (130-400) K/uL [facility] 09/28/23 09/29/23 14:34 05:34 Sodium 122 L 124 L Potassium 3.3 L 3.2 L Chloride 88 L 92 L Carbon Dioxide 27 27 BUN TNP 23 Creatinine TNP 1.46 H Glucose 94 103 H Calcium 7.7 L 7.3 L Liver Function 09/29/23 Range/Units 05:34 Total Bilirubin 26.0 H (0.2-1.0) mg/dl Direct Bilirubin 16.1 H (0-0.2) mg/dl AST 97 H (13-39) U/L ALT 56 H (7-52) U/L Alkaline Phosphatase TNP Albumin 1.9 L (3.4-5.0) gm/dl (1) Alcoholic hepatitis Ascites presence: with ascites Qualified Code(s): K70.11 - Alcoholic hepatitis with ascites
--- NOTE | 2023-09-29 22:46 | Electrocardiogram Report ---
Test Reason : Blood Pressure : / mmHG Vent. Rate : 106 BPM Atrial Rate : 106 BPM P-R Int : 144 ms QRS Dur : 094 ms QT Int : 408 ms P-R-T Axes : 054 046 019 degrees QTc Int : 541 ms Sinus tachycardia Prolonged QT Nonspecific T wave abnormality Abnormal ECG When compared with ECG of 27-SEP-2023 15:38, Borderline criteria for Inferior infarct are no longer Present Nonspecific T wave abnormality has replaced inverted T waves in Inferior leads Confirmed by Casey Cruz ([id number]) on 09/29/2023 10:45:35 PM Referred By: REFERRED SELF Confirmed By:Casey Cruz
--- NOTE | 2023-09-30 09:36 | Discharge Summary ---
Date of Service September 30, 2023 Admission HPI Per Admitting Provider 37-year-old male with prior history of alcoholic cirrhosis, alcoholic hepatitis, esophageal varices, ascites, SBP, history of DVT s/p Coumadin therapy, and other problems listed below who presents to the ED for evaluation of abdominal distention and and jaundice. Patient reports his symptoms began two days ago. History obtained from the patient and review of outpatient PCP and GI records. Reports he is mostly abstinent from alcohol but had one glass of wine a couple of weeks ago. Upon review of outpatient records, patient has no showed for several appointments with hepatology. Patient reports compliance with diuretic therapy. He denies fever and chills. No abdominal pain, nausea, vomiting, and diarrhea. He denies chest pain and shortness of breath. No lightheadedness, dizziness, diaphoresis, or syncopal events. Reports urine has been very dark but denies dysuria. In the ED, patient is hemodynamically stable. Labs show WBC 11K, hgb 11.8, platelet 50K, INR 2.3, Na+ 119, K+ 2.4, T. bili 27.7, AST 138, ALT 73, alk phos 195. Patient was given 500ml NSS. Admission Exam Per Admitting Provider Physical Exam Constitutional: WD/WN, vitals as above + ill appearing (chronically); no acute distress Eyes: PERRL sclera icteric ENMT: Ears: no external ear abnormality Nose: no external nose abnormality Mouth: + poor dentition Respiratory: normal respiratory effort, lungs clear to auscultation Cardiovascular: Rate/Rhythm: regular rate and regular rhythm Vessels: normal peripheral pulses Extremities: + edema (trace edema BLE) Gastrointestinal (Abdomen): Inspection/Auscultation: + abdomen distended Percussion/Palpation: abdomen soft; abdomen nontender Musculoskeletal: no cyanosis or clubbing, extremities motor strength 5/5 Skin: + jaundice Neurologic: PERRL, EOMI, accommodation nl, no face palsy, no dysarthria Psychiatric: A+Ox3, euthymic affect Principal Diagnosis Alcoholic hepatitis Alcoholic cirrhosis Hypervolemic hyponatremia Hypokalemia Thrombocytopenia Anemia of chronic disease Discharge Data Allergies Allergy/AdvReac Type Severity Reaction Status Date / Time acetaminophen Allergy Intermediate ELEVATED Verified 02/13/23 19:30 FEVER amoxicillin Allergy Intermediate UNKNOWN Verified 02/13/23 19:30 Penicillins Allergy Intermediate UNKNOWN Verified 02/13/23 19:30 acetylcysteine AdvReac Difficulty Verified 09/27/23 19:30 Breathing Consultations 09/27/23 15:48 ED Decision to Admit Stat 09/27/23 21:01 Consult Gastroenterology Routine Consult Nephrology Routine Procedures Performed Laboratory Results WBC 9.64 K/ul (4.8-10.8) 09/29/23 05:34 RBC 2.80 M/uL (4.70-6.10) L 09/29/23 05:34 Hgb 9.9 g/dl (14.0-18.0) L 09/29/23 05:34 Hct 28.3 % (42.0-52.0) L 09/29/23 05:34 MCV 101.1 fL (80.0-100.0) H 09/29/23 05:34 MCH 35.4 pg (25.0-34.0) H 09/29/23 05:34 MCHC 35.0 g/dL (32.0-36.0) 09/29/23 05:34 RDW Std Deviation 62.2 fL (36.4-46.3) H 09/29/23 05:34 RDW Coeff of Marilyn 17.0 % (11.5-14.5) H 09/29/23 05:34 Plt Count 43 K/uL (130-400) L 09/29/23 05:34 MPV 10.1 fL (9.4-12.4) 09/29/23 05:34 Immature Gran % (Auto) 2.0 % 09/27/23 14:28 Neut % (Auto) 82.0 % 09/27/23 14:28 Lymph % (Auto) 5.5 % 09/27/23 14:28 [place] % (Auto) 9.8 % 09/27/23 14:28 Eos % (Auto) 0.3 % 09/27/23 14:28 Baso % (Auto) 0.4 % 09/27/23 14:28 Neut # (Auto) 9.28 K/uL (1.40-6.50) H 09/27/23 14:28 Lymph # (Auto) 0.62 K/uL (1.20-3.40) L 09/27/23 14:28 [place] # (Auto) 1.11 K/uL (0.11-0.59) H 09/27/23 14:28 Eos # (Auto) 0.03 K/uL (0.00-0.50) 09/27/23 14:28 Baso # (Auto) 0.05 K/uL (0.00-0.20) 09/27/23 14:28 Immature Gran # (Auto) 0.23 K/uL (0.01-0.20) H 09/27/23 14:28 PT 27.6 Seconds (9.0-12.0) H 09/29/23 05:34 INR 2.7 (0.9-1.1) H 09/29/23 05:34 APTT 37 Seconds (21-31) H 09/27/23 14:28 PTT Ratio 1.3 09/27/23 14:28 Sodium 124 mmol/L (136-145) L 09/29/23 05:34 Potassium 3.2 mmol/L (3.5-5.1) L 09/29/23 05:34 Chloride 92 mmol/L (98-107) L 09/29/23 05:34 Carbon Dioxide 27 mmol/L (21-32) 09/29/23 05:34 Anion Gap 5 (3-11) 09/29/23 05:34 BUN 23 mg/dl (6-23) 09/29/23 05:34 Creatinine 1.46 mg/dl (0.6-1.4) H 09/29/23 05:34 Est Cr Clr Drug Dosing 89.6 ml/min 09/29/23 05:34 Est GFR ( Amer) 70.2 ml/min 09/29/23 05:34 Est GFR (Non-Af Amer) 60.6 ml/min 09/29/23 05:34 BUN/Creatinine Ratio 15.8 (10-20) 09/29/23 05:34 Glucose 103 mg/dl (70-99(Fasting)) H 09/29/23 05:34 POC Glucose 164 mg/dl (70-99) H 09/28/23 01:04 Osmolality 254 mOsm/kg (280-300) L 09/27/23 14:28 Calcium 7.3 mg/dl (8.6-10.3) L 09/29/23 05:34 Phosphorus 3.3 mg/dl (2.5-4.9) 09/27/23 14:28 Magnesium TNP 09/29/23 05:34 Total Bilirubin 26.0 mg/dl (0.2-1.0) H 09/29/23 05:34 Direct Bilirubin 16.1 mg/dl (0-0.2) H 09/29/23 05:34 AST 97 U/L (13-39) H 09/29/23 05:34 ALT 56 U/L (7-52) H 09/29/23 05:34 Alkaline Phosphatase TNP 09/29/23 05:34 Ammonia TNP 09/27/23 14:50 Total Protein 4.9 gm/dl (6.0-8.3) L D 09/29/23 05:34 Albumin 1.9 gm/dl (3.4-5.0) L 09/29/23 05:34 Globulin 3.6 gm/dl (2.5-4.0) 09/27/23 14:28 Albumin/Globulin Ratio 0.7 (0.9-2) L 09/27/23 14:28 Lipase TNP 09/27/23 14:28 Urine Color Dark Yellow 09/27/23 22:51 Urine Appearance Cloudy (Clear) A 09/27/23 22:51 Urine pH 6.0 (4.5-7.5) 09/27/23 22:51 Ur Specific [place] 1.014 (1.000-1.030) 09/27/23 22:51 Urine Protein Negative (Negative) 09/27/23 22:51 Urine Glucose (UA) Negative (Negative) 09/27/23 22:51 Urine Ketones Trace (Negative) H 09/27/23 22:51 Urine Blood Negative (Negative) 09/27/23 22:51 Urine Nitrite Positive (Negative) A 09/27/23 22:51 Urine Bilirubin 3+ (Negative) H 09/27/23 22:51 Urine Urobilinogen Negative (Negative) 09/27/23 22:51 Ur Leukocyte Esterase Trace (Negative) H 09/27/23 22:51 Urine WBC (Auto) >30 /hpf (0-5) H 09/27/23 22:51 Urine RBC (Auto) 10-30 /hpf (0-4) H 09/27/23 22:51 U Hyaline Cast (Auto) >30 /lpf (0-5) H 09/27/23 22:51 U Epithel Cells (Auto) 10-20 /lpf (0-5) H 09/27/23 22:51 Urine Bacteria (Auto) 1+ (Negative) H 09/27/23 22:51 Ur Renal Epithelial Cell 10-20 /lpf (0-5) H 09/27/23 22:51 Granular Casts 5-10 /lpf (0) H 09/27/23 22:51 WBC Casts 20-30 /lpf (0) H 09/27/23 22:51 Other Casts Mixed Cell Cast /lpf (0) A 09/27/23 22:51 Urine Osmolality 307 mOsm/kg (500-800) L 09/27/23 22:51 Urine Sodium < 10 mmol/L 09/27/23 22:51 Urine Potassium 43.8 mmol/L 09/27/23 22:51 Urine Chloride < 15 mmol/L 09/27/23 22:51 Ethyl Alcohol mg/dL < 10.0 mg/dl (<10.0) 09/27/23 14:50 Ref Lab Test Result See Scanned Report 09/28/23 06:17 Ref Lab Test Result See Scanned Report 09/28/23 06:17 Impressions Abdomen Ultrasound 09/27/23 17:03 US abdomen ltd ascites CLINICAL HISTORY: ascites TECHNIQUE: Real-time grayscale sonographic images of the abdomen were obtained. Comparison: Comparison is made to CT abdomen pelvis 02/13/2023 FINDINGS/IMPRESSION: Nodular contour of the liver compatible with cirrhosis. Small ascites is seen. ACT 112: Negative or not required by law. Electronically signed by: Vince Garcia M.D. 09/27/2023 6:12 PM Liver Ultrasound 09/28/23 08:16 US liver CLINICAL HISTORY: el LFTs, cirrhosis, r/o lesion or bile duct obst TECHNIQUE: Multiple real-time sonographic images of the right upper quadrant were obtained. Comparison: Comparison is made to ascites ultrasound 09/27/2023 and MRCP 08/09/2022 FINDINGS: The liver is diffusely coarsened in echotexture, with a nodular contour. The liver appears shrunken in appearance. These findings are suggestive of cirrhosis. No focal mass lesions are seen. Portal vein appears patent. No intrahepatic ductal dilatation is seen. Gallbladder is distended with sludge and a radiodense gallstone noted. Gallbladder wall measures 6 mm. A sonographic Mitchell's sign was not elicited by the cash manager. The common duct measures 0.5 cm in diameter at the level of the hepatic artery. There is minimal prominence of the intrahepatic bile ducts. The visualized portions of the pancreas appear normal. The right kidney shows normal echogenicity, cortical thickness and renal contour. The right kidney shows no evidence of hydronephrosis or mass. Abdominal varices noted. A small amount of ascites is seen, unchanged from prior exam. IMPRESSION: 1. No acute abnormality, in particular no evidence of common bile duct obstruc tion or acute cholecystitis. Mild prominence of the intrahepatic bile ducts is likely chronic. 2. Gallstone and gallbladder sludge is seen with negative Mitchell's sign. Gallbladder wall thickening is likely secondary to ascites. ACT 112: Negative or not required by law. Electronically signed by: Vince Garcia M.D. 09/28/2023 2:40 PM Ordered Studies 09/27/23 17:03 US abdomen ltd ascites Routine 09/28/23 08:16 US RUQ [US liver] Routine Hospital Course (1) Alcoholic hepatitis: (2) Alcoholic cirrhosis: Patient is a 36 yr male with H/O Alcoholic cirrhosis, alcoholic hepatitis, esophageal varices, ascites, SBP, history of DVT s/p Coumadin therapy who presents to the ED for evaluation of worsening abdominal distention and jaundice. Alcoholic hepatitis Alcoholic cirrhosis Hyperbilirubinemia/transaminitis/positive for secondary to above --ABD USD:Nodular contour of the liver compatible with cirrhosis. Small ascites is seen. --Liver USD:No acute abnormality, in particular no evidence of common bile duct obstruction or acute cholecystitis. Mild prominence of the intrahepatic bile ducts is likely chronic. Gallstone and gallbladder sludge is seen with negative Mitchell's sign. Gallbladder wall thickening is likely secondary to ascites. --Maddrey's discriminant function score 55, unable to calculate MELD due to unavailable creatinine due to icteric sample --NAC infusion discontinued due to intolerance --Continue prednisolone 40 mg daily Appreciate GI input Consult on alcohol abstinence Low-salt diet Monitor platelet count, currently no acute bleeding issues Monitor LFTs--slowly improving Continue thiamine, folic acid Needs follow-up with GI/hepatology upon discharge Plan to continue prednisone 40 mg daily for 1 month, then to consider tapering Needs outpatient LFTs checked in 1 week upon discharge Needs outpatient EGD for evaluation of esophageal varices Despite explaining the risks and complications of leaving without proper treatment by night filler, patient left against medical advice. (3) Hyponatremia: Hypervolemic hyponatremia In setting of decompensated liver cirrhosis Presented with Na+ 119; Serum osmo 254 Sodium 124 today Admitting provider discussed with Nephrology Dr. Schwartz. Initially planned on mixing NAC in 1/2NSS however due to reaction as above, will not be receiving NAC infusion. Rediscussed with Dr. Schwartz who recommends repeating BMP in 4 hours, Low Na+ diet, 1.5 L fluid restriction -- Continue IV Lasix, spironolactone as per nephrology Appreciate nephrology input Monitor renal function Abnormal urinalysis, suspected UTI Urine culture pending Empirically started on Rocephin (4) Hypokalemia: Replace and monitor (5) Thrombocytopenia: Platelet 50K, at baseline In the setting of cirrhosis Monitor CBC Anemia of chronic disease Hemoglobin at baseline No bleeding issues currently DVT Px: SCDs for now due to thrombocytopenia CODE STATUS Full code Disposition Patient left AGAINST MEDICAL ADVICE Total Time Total Time Spent Total Time Spent (In Minutes): 58 minutes Discharge Plan Discharge Items Patient Disposition: Against Medical Advice Reason For Visit: HYPONATREMIA Activity: As commented below Activity Comment: as per pcp Non-emergency contact: Primary Care Provider Follow-up/Referrals: Adan Muniz MD [Primary Care Provider] - Pending Studies at Discharge: No Stand-Alone Forms: My [employer], Smoking Cessation Medications and DC Order Prescriptions: New prednisolone sodium phosphate 15 mg/5 mL (3 mg/mL) Solution 40 mg PO DAILY 30 Days Qty: 399.999 0RF No Action spironolactone 100 mg Tablet 100 mg PO QAM Qty: 30 0RF furosemide 40 mg Tablet 40 mg PO QAM Qty: 30 0RF folic acid 1 mg Tablet 1 mg PO QAM Qty: 30 0RF multivitamin with folic acid [Daily-Paul (with folic acid)] 400 mcg Tablet 1 tab PO QAM Qty: 30 0RF Discharge Orders: Left Against Medical Advice (Routine); Ordered 09/29/23 Ordered By: Thom Cartwright Admission Data Admit Date/Time: 09/27/23 16:15 Attending Provider: Bronson De Oliveira Admit Provider: Moustapha Garner Primary Care Provider: Adan Muniz Other Providers: Moustapha Garner; Supriya Birch; Dwayne Armas
== END 2023-09-29 21:05 | disposition left against medical advice (07) | DRG 433 ==
LOC: ED 13:52 → SUATTDRO 16:15 → 2E 16:15

== ENCOUNTER 2023-10-04 10:22 | Inpatient (IN) ==
--- NOTE | 2023-10-04 10:57 | Emergency Department Note ---
Impression & Plan Decompensated hepatic cirrhosis, Abdominal ascites ED Provider Note Name: BETSY HANSEN Age: 37 Sex: Male Arrives Via: Walk-In Informant: Patient ED Provider: Sergio Reyna MD Chief Complaint: Abdominal swelling Impression: As per impressions above Medical Decision Makin-year-old gentleman with a history of alcoholism who has been sober for the last 2 months but has developed worsening alcoholic cirrhosis. Patient arrives for significant worsening in his jaundice as well as abdominal distention. He is in no distress he denies any abdominal pain he is not having fevers and he has no abdominal tenderness palpation. Blood pressure good he is only mildly tachycardic on evaluation. Does not appear to be in much respiratory distress other than saying that he feels like he is having trouble taking a deep breath with his abdomen so distended. Chest x-ray without any clear evidence of congestive failure. Laboratory workup does reveal a significantly elevated bilirubin. Patient is essentially in liver failure at this time though ammonia is fortunately unremarkable. There is no evidence of SBP at this time. Patient is awake alert oriented answering all questions. As he was just admitted here and I do not think he has any emergent need for IR I did contact hospitalist who will bring him in for further workup and evaluation. Of note unable to get a creatinine on the patient as he has blood that is too icteric. Triage/Nursing Notes reviewed by Me Differential:liver failure, fluid overload, peritonitis, electrolyte imbalance, renal failure, amongst others Vital Signs: reviewed and remarkable for mild tachycardia Labs:ED labs Reviewed by me and remarkable for severely elevated bilirubin. Elevated INR though mildly improved from previous. Imagin view chest x-ray as per my interpretation no significant fluid overload appreciated. Consults:Dr Veronica Kaur Hospitalist Plan: Disposition:Hospitalization. Condition: Fair History of Present Illness: 37-year-old male arrives for evaluation of worsening liver failure. Patient notes he was admitted last week for fluid overload and been on Lasix. He was discharged a few days ago and feels like he was doing a bit better. Over the last 2 to 3 days though increasing abdominal distention and discomfort. Denies any significant pain. He states his belly feels so swollen he feels like he cannot catch her breath. Any exertion makes him severely short of breath. Notes increasing leg swelling as well. He states that his eyes been yellowing further and he feels increasingly shaky. Denies any fevers, chills, syncope. Denies any urinary burning or diarrhea. Patient reports he talked to his kidney doctor is concerned that he may have dropped his sodium. Denies any recent Tylenol or alcohol use. Denies history of encephalopathy or elevated ammonia levels. Past Medical History:Alcoholic cirrhosis. Liver failure Home Medications:Lasix, folic acid, multivitamin, prednisone, spironolactone. Allergies:Tylenol, amoxicillin, penicillin, acetylcysteine Vitals:Blood Pressure: 116/68, Pulse 101, RR 18, T 36.6C, O2 99% on RA Physical Exam: GENERAL: Patient is uncomfortable/unwell appearing and in mild distress. EYES: Bilateral jaundice RESPIRATORY: Crackles at bases no significant respiratory distress CARDIOVASCULAR: Mild tach he.No murmur appreciated. GASTROINTESTINAL: Distended nontender abdomen with fluid wave. No peritonitis BACK: No midline tenderness, no CVA tenderness EXTREMITIES: Normal motion all extremities, no cyanosis, moderate bilateral lower leg edema. NEUROLOGIC: Alert and oriented. No focal neurologic deficits appreciated SKIN: No rash, skin is significantly jaundiced, no diaphoresis. PSYCH: Appropriate GCS: 15 ED Course: Times/Reassessments: Patient stable comfortable and agreeable to hospitalization. Sergio Reyna MD Past Med/Surg History Medical History Thrombocytopenia Alcohol use disorder Alcoholic hepatitis Ascites Esophageal varices History of deep venous thrombosis Liver cirrhosis SBP (spontaneous bacterial peritonitis) Surgical History No significant past surgical history Family History Grandmother (Maternal) Colorectal cancer Mother Stroke Social History Smoking Status: Never smoker Tobacco Type: E-cigarettes / Vaping Second Hand Exposure: No; Do You Dip or Chew Tobacco: No; Hx Alcohol Use: Yes Alcohol type: wine Hx Substance Use: No Preferred Language: Maori Communication Ability: Effective Communication Ability Comment: verbal Linux Administrator Required: No Beliefs That Will Affect Care: None Current Living Situation: Family Current Living Situation Comment: with two teenage daughters Feels Safe at Home: Yes Assistive Devices: None Allergies Allergies Allergy/AdvReac Type Severity Reaction Status Date / Time acetaminophen Allergy Intermediate ELEVATED Verified 02/13/23 19:30 FEVER amoxicillin Allergy Intermediate UNKNOWN Verified 02/13/23 19:30 Penicillins Allergy Intermediate UNKNOWN Verified 02/13/23 19:30 acetylcysteine AdvReac Difficulty Verified 09/27/23 19:30 Breathing Home Meds Home Medications Medication Instructions Recorded Confirmed potassium chloride 20 mEq 20 meq PO BID 10/04/23 10/04/23 tablet,extended release(part/cryst) thiamine HCl (vitamin B1) 100 mg 100 mg PO QAM 10/04/23 10/04/23 tablet Previous Rx's Medication Instructions Recorded folic acid 1 mg tablet 1 mg PO QAM #30 tabs 02/17/23 furosemide 40 mg tablet 40 mg PO QAM #30 tabs 02/17/23 multivitamin with folic acid 400 1 tab PO QAM #30 tabs 02/17/23 mcg tablet (Daily-Paul (with folic acid)) spironolactone 100 mg tablet 100 mg PO QAM #30 tabs 02/17/23 prednisolone sodium phosphate 15 40 mg (13.3333 mL) PO DAILY 30 09/29/23 mg/5 mL (3 mg/mL) oral solution days #399.999 mL Results & Data (ED) Vital Signs Vital Signs - 24 hr 10/04/23 10:22 10/04/23 11:18 10/04/23 11:22 Temperature 36.6 C Temperature Source Temporal Artery Scan Pulse Rate 101 H 103 H Pulse Rate [Apical] 101 H Pulse Rhythm [Apical] Regular Pulse Strength [Apical] Normal Respiratory Rate 18 18 Respiratory Effort / Characteristics Non-Labored Spontaneous Respiratory Depth Normal Respiratory Pattern Regular Blood Pressure 116/68 Blood Pressure [Right Arm] 129/84 Blood Pressure Mean 84 Blood Pressure Mean [Right Arm] 99 Pulse Oximetry 99 99 Oxygen Delivery Method Room Air Sepsis Recent Fever Within 48 Hours No Sepsis New/Unexplained Change in Mental Status N/A Sepsis Action Taken by Nursing No Action Required 10/04/23 13:51 Temperature Temperature Source Pulse Rate Pulse Rate [Apical] 112 H Pulse Rhythm [Apical] Regular Pulse Strength [Apical] Normal Respiratory Rate 19 Respiratory Effort / Characteristics Non-Labored Spontaneous Respiratory Depth Normal Respiratory Pattern Regular Blood Pressure Blood Pressure [Right Arm] 105/49 L Blood Pressure Mean Blood Pressure Mean [Right Arm] 67 Pulse Oximetry 98 Oxygen Delivery Method Room Air Sepsis Recent Fever Within 48 Hours Sepsis New/Unexplained Change in Mental Status Sepsis Action Taken by Nursing Laboratory Data 10/04/23 11:01 10/04/23 11:01 Lab Results 10/04/23 Range/Units 11:01 WBC 16.56 H (4.8-10.8) K/ul RBC 3.13 L (4.70-6.10) M/uL Hgb 11.3 L (14.0-18.0) g/dl Hct 31.9 L (42.0-52.0) % MCV 101.9 H (80.0-100.0) fL MCH 36.1 H (25.0-34.0) pg MCHC 35.4 (32.0-36.0) g/dL RDW Std Deviation 65.1 H (36.4-46.3) fL RDW Coeff of Marilyn 17.6 H (11.5-14.5) % Plt Count 52 L (130-400) K/uL MPV 10.0 (9.4-12.4) fL Immature Gran % (Auto) 8.6 % Neut % (Auto) 73.6 % Lymph % (Auto) 6.6 % Scott % (Auto) 10.5 % Eos % (Auto) 0.5 % Baso % (Auto) 0.2 % Neut # (Auto) 12.17 H (1.40-6.50) K/uL Lymph # (Auto) 1.09 L (1.20-3.40) K/uL Scott # (Auto) 1.74 H (0.11-0.59) K/uL Eos # (Auto) 0.09 (0.00-0.50) K/uL Baso # (Auto) 0.04 (0.00-0.20) K/uL Immature Gran # (Auto) 1.43 H (0.01-0.20) K/uL Toxic Granulation 1+ Echinocytes 1+ PT 21.3 H (9.0-12.0) Seconds INR 2.0 H (0.9-1.1) Sodium 122 L (136-145) mmol/L Potassium 3.4 L (3.5-5.1) mmol/L Chloride 92 L (98-107) mmol/L Carbon Dioxide 23 (21-32) mmol/L Anion Gap 7 (3-11) BUN TNP Creatinine TNP Est Cr Clr Drug Dosing TNP Est GFR ( Amer) TNP Est GFR (Non-Af Amer) TNP BUN/Creatinine Ratio TNP Glucose 104 H (70-99(Fasting)) mg/dl Calcium 7.8 L (8.6-10.3) mg/dl Magnesium TNP Total Bilirubin 34.2 H (0.2-1.0) mg/dl Direct Bilirubin 18.4 H (0-0.2) mg/dl AST 103 H (13-39) U/L ALT 79 H (7-52) U/L Alkaline Phosphatase TNP Ammonia 41.0 (18-72) umol/L Troponin I High Sens 13.7 (0-20) pg/ml B-Natriuretic Peptide 57 (0-100) pg/ml Total Protein 6.0 (6.0-8.3) gm/dl Albumin 2.2 L (3.4-5.0) gm/dl Lipase TNP Urine Color [place] Urine Appearance Clear (Clear) Urine pH (4.5-7.5) Ur Specific [place] 1.007 (1.000-1.030) Urine Protein (Negative) Urine Glucose (UA) (Negative) Urine Ketones (Negative) Urine Blood (Negative) Urine Nitrite (Negative) Urine Bilirubin (Negative) Urine Urobilinogen (Negative) Ur Leukocyte Esterase (Negative) Urine RBC 5-10 H (0-4) /hpf Urine WBC 5-10 H (0-5) /hpf Ur Epithelial Cells 10-20 H (0-5) /lpf Urine Bacteria 1+ H (Negative) Granular Casts 1-5 H (0) /lpf Administered Medications Spironolactone (Spironolactone 100 Mg Tab) 100 mg PO QAM MATTIE Stop: 11/03/23 15:21 Last Admin: 10/04/23 17:02 Dose: 100 mg Documented By: OAC Discontinued Medications Furosemide (Furosemide 40 Mg/4 Ml Vial) 40 mg IV ONE ONE Stop: 10/04/23 13:55 Last Admin: 10/04/23 15:13 Dose: 40 mg Documented By: GGG Potassium Chloride (K Samuel / Wtr) 10 meq in 100 mls @ 100 mls/hr IV Q1H MATTIE Stop: 10/04/23 16:14 Last Admin: 10/04/23 16:41 Dose: 100 mls/hr Documented By: Infusion: 10/04/23 16:14 Dose: Infused Documented By: Admin: 10/04/23 15:14 Dose: 100 mls/hr Documented By: TRISH Pantoprazole Sodium (Pantoprazole 40 Mg Tab) 40 mg PO DAILY MATTIE Stop: 10/04/23 16:00 Last Admin: 10/04/23 16:24 Dose: 40 mg Documented By: TRISH Potassium Chloride (Potassium Chloride Crtab 20 Meq Tabcr) 40 meq PO NOW STA Stop: 10/04/23 14:07 Last Admin: 10/04/23 15:12 Dose: 40 meq Documented By: GGG Prednisolone Sodium Phosphate (Prednisolone Sod Phosphate 15 Mg/5 Ml) 40 mg PO NOW STA Stop: 10/04/23 14:04 Last Admin: 10/04/23 15:12 Dose: 40 mg Documented By: TRISH Prednisone (Prednisone 20 Mg Tab) 40 mg PO DAILY MATTIE Stop: 11/03/23 13:59 Last Admin: 10/04/23 16:10 Dose: Not Given Documented By: TRISH Imaging Data Radiologist's Impression: Chest X-Ray 10/04/23 10:54 XR chest 1V portable CLINICAL HISTORY: Shortness of breath. COMPARISON STUDY: Chest CT September 29, 2017. Chest radiograph February 13, 2023 FINDINGS: There is no pneumothorax. A small left pleural effusion is present. Bibasilar opacities favor atelectasis. There is no consolidation to suggest pneumonia. Cardiomediastinal silhouette is unchanged. There is no evidence for pulmonary edema. IMPRESSION: 1. Small left pleural effusion. 2. Bibasilar opacities suggestive of atelectasis. ACT 112: Negative or not required by law. Electronically signed by: Josue Peña M.D. 10/04/2023 11:09 AM Discharge Plan Visit Data Chief Complaint: Abdominal Pain Stated Complaint: SEROSIS ED Provider: Sergio Reyna Discharge Problem: Decompensated hepatic cirrhosis, Abdominal ascites Patient Disposition: Admitted As Inpatient Discharge Instructions Interventions: ED Discharge Assessment Last Done: 10/04/23 15:23 Discharge Problem: Abdominal ascites Qualifiers: Ascites type: due to alcoholic cirrhosis Qualified Code(s): K70.31 - Alcoholic cirrhosis of liver with ascites
--- NOTE | 2023-10-04 11:10 | XRay Report ---
XR chest 1V portable CLINICAL HISTORY: Shortness of breath. COMPARISON STUDY: Chest CT September 29, 2017. Chest radiograph February 13, 2023 FINDINGS: There is no pneumothorax. A small left pleural effusion is present. Bibasilar opacities fav or atelectasis. There is no consolidation to suggest pneumonia. Cardiomediastinal silhouette is uncha nged. There is no evidence for pulmonary edema. IMPRESSION: 1. Small left pleural effusion. 2. Bibasilar opacities suggestive of atelectasis. ACT 112: Negative or not required by law. Electronically signed by: Josue Peña M.D. 10/04/2023 11:09 AM
--- OUTSIDE RECORDS SUMMARY | 2023-10-04 11:24 | External Medical Summary ---
Author Name Unknown Address Unknown Organization K01:[facility] - [address] [place] [address] Laboratory Report Ordering Provider Test Date Status SORINMAIDA 09/28/2023 06:17:00 Final Observation Date Value Abnormality Reference (Units ) Status BUN 09/28/2023 06:17:00 18 6-20 (mg/d L) Final Performing Location [facility] - [address] [place] [address]
--- OUTSIDE RECORDS SUMMARY | 2023-10-04 11:24 | External Medical Summary ---
Author Name Unknown Address Unknown Organization K01:[facility] – [place] - [facility] [address] [place] [address] Laboratory Report Ordering Provider Test Date Status MAIDA ROWELL 09/28/2023 06:17:00 Final Observation Date Value Abnormality Reference (Units ) Status Creatinine 09/28/2023 06:17:00 1.2 0.6-1.2 ( mg/dL) Final Result may be falsely decrea sed due to icterus. Glomerular filtration rate/1 .73 sq M.predicted [Volume Rate/Area] in Serum, Plasma or Blood by Creatinine-based formula (CKD-EPI) 09/28/2023 06:17:00 82 >=60 (mL/min) Fi nal eGFR is calculated based on the CKD-EPI 2020 equation Performing Location LABORATORY [place] [address] [address] [place] [address]
--- OUTSIDE RECORDS SUMMARY | 2023-10-04 11:24 | External Medical Summary | Summary of Care ---
Author Name Unknown Organization [facility] Address [address] [place] [address] Phone [phone] Care Team Providers Care External Grinder Tool Name Role Phone Adan Muniz MD Primary Care Provide r Encounter Details Date Type Department Care Team (Late st Contact Info) Description 09/28/2023 Result Scan Unspecified Department [facility]ash [facility]uleta [facility] [address] [facility] [address] <No scans attached> Allergies Active Allergy Reactions Criticality Noted Date Comments Amoxicillin Rash 10/20/2017 Penicillins Rash High 10/20/2017 Other reaction(s): UNKNOWN Acetaminophen Nausea/vomiting,Othe r (Please comment),Rash 10/20/2017 Shortness of breath documented as of this encounter (statuses as of 09/29/2023) Medications Medication Sig Dispensed Refills Start Date End Date Status K Phos [place]-Sod Phos Di & [place] 155-852-130 MG Oral Tablet (K-Phos Neutral) Take [...] as of this encounter (statuses as of 09/29/2023) Active Problems Problem Noted Date Diagnosed Date [...] as of this encounter (statuses as of 09/29/2023) Resolved Problems Problem Noted Date Diagnosed Date Resolved Date SBP (spontaneous bacterial peritonitis) 01/23/2019 02/22/2023 DVT (deep venous thrombosis) 01/21/2019 01/22/2019 Overview: In 2017 - treated for 3 months with AC Alcohol abuse 01/21/2019 08/16/2022 Coagulation defect 01/21/2019 2 Cellulitis, abdominal wall 01/21/2019 1 10/16/2021 Reflux esophagitis 01/15/2006 1 documented as of this encounter (statuses as of 09/29/2023) Immunizations Name Administration Dates Next Due DTaP [...] 12/05/2023 11:45 AM EST Hospital Encounter ENDO [facility], Endoscopy Room [facility] [address] [place] [phone] Isabelle De Guzman DO [address] [place] [address] 12/05/2023 11:45 AM EST - 12/05/2023 12:15 PM EST Surgery ENDO [facility], Endoscopy Room [facility] [address] [place] [phone] Isabelle De Guzman DO [address] [place] [address] ESOPHAGOGASTRODUODENOSCOPY (EGD), FLEXIBLE, TRANSORAL, DIAGNOSTIC Scheduled Procedures [...] Not on filedocumented as of this encounter Procedures Procedure Name Priority Date/Time Associated Diagnosis Comments RADIOLOGY SCANNED RESULT 09/28/2023 documented in this encounter Results * RADIOLOGY SCANNED RESULT (09/28/2023) 09/28/2023 [facility] documented in this encounter Advance Directives Latest Code Status on File Code Status Date Activated Date Inactivated Comments Full Code 01/20/2019 11:57 PM 01/27/2019 6:54 PM This order reflects the patients wishes and were consensually agreed upon. Care Teams External Grinder Tool Relationship Specialty Start Date End Date Adan Muniz MD [address] [place] [address] [place] [address] PCP - General Family Medicine 02/22/23 documented as of this encounter
--- OUTSIDE RECORDS SUMMARY | 2023-10-04 11:24 | External Medical Summary | Summary of Care ---
Author Name Unknown Organization [facility] Address [address] [place] [address] Phone [phone] Care Team Providers Care Inward Toll Operator Name Role Phone Adan Muniz MD Primary Care Provide r Reason for Visit * Reason Onset Date Comments Hospital Follow-Up 09/30/2023 [facility] 09/29 Encounter Details Date Type Department Care Team (Late st Contact Info) Description 09/30/2023 Telephone Ancillary [address] [place] [address] Kasandra Felix RN Hospital Follow-Up ([facility] 09/29) Allergies Active Allergy Reactions Criticality Noted Date Comments Amoxicillin Rash 10/20/2017 Penicillins Rash High 10/20/2017 Other reaction(s): UNKNOWN Acetaminophen Nausea/vomiting,Othe r (Please comment),Rash 10/20/2017 Shortness of breath documented as of this encounter (statuses as of 09/30/2023) Medications Medication Sig Dispensed Refills Start Date End Date Status K Phos [place]-Sod Phos Di & [place] 155-852-130 MG Oral Tablet (K-Phos Neutral) Take [...] the morning. 90 Tablet 3 08/17/2023 Active prednisoLONE Sodium Phosphate 15 MG/5ML Oral Solution (Orapred) Take 13.3 mL by mouth in the morning. 0 09/30/2023 Active documented as of this encounter (statuses as of 09/30/2023) Active Problems Problem Noted Date Diagnosed Date [...] as of this encounter (statuses as of 09/30/2023) Resolved Problems Problem Noted Date Diagnosed Date Resolved Date SBP (spontaneous bacterial peritonitis) 01/23/2019 02/22/2023 DVT (deep venous thrombosis) 01/21/2019 01/22/2019 Overview: In 2017 - treated for 3 months with AC Alcohol abuse 01/21/2019 08/16/2022 Coagulation defect 01/21/2019 2 Cellulitis, abdominal wall 01/21/2019 1 10/16/2021 Reflux esophagitis 01/15/2006 1 documented as of this encounter (statuses as of 09/30/2023) Immunizations Name Administration Dates Next Due DTaP [...] encounter Miscellaneous Notes * Telephone Encounter - Kasandra Felix RN - 09/30/2023 3:14 PM EST Attempted to call pt again. No answer and voicemail is full If he calls back today, 09/30, he can be transferred to [phone]. He he calls back after 4:30 on 09/30 please help him make a hospital follow up appt and then route any questions to pcp office. * Telephone Encounter - Patricia Hutton OSA - 09/30/2023 2:15 PM EST Patient will like a call back in regards to admission. Thank you * Telephone Encounter - Kasandra Felix RN - 09/30/2023 1:19 PM EST Transitions of Care Note Reason for Referral:Recent Admission Phone visit for follow up: ODETTE Admitted to: [facility], Date: 09/27 Discharged to: home, Date: 09/29 Diagnosis driving hospitalization: (1) Alcoholic hepatitis: (2) Alcoholic cirrhosis: Attempted to call pt. No answer and voicemail is full. Will try again later * Telephone Encounter - Kasandra Felix RN - 09/30/2023 8:32 AM EST Transitions of Care Note Reason for Referral:Recent Admission Phone visit for follow up: ODETTE Admitted to: [facility], Date: 09/27 Discharged to: home, Date: 09/29 Diagnosis driving hospitalization: (1) Alcoholic hepatitis: (2) Alcoholic cirrhosis: documented in this encounter Plan of Treatment Upcoming Encounters Date Type Department Care Team (Latest Contact Info) Description 10/25/2023 2:00 PM EST Office Visit Gastroenterology , [facility] [address] [place] [address] Arash Archuleta CRNP [address] [place] [address] 12/05/2023 11:45 AM EST Hospital Encounter ENDO [facility], Endoscopy Room [facility] [address] [place] [phone] Isabelle De Guzman DO [address] [place] [address] 12/05/2023 11:45 AM EST - 12/05/2023 12:15 PM EST Surgery ENDO [facility], Endoscopy Room [facility] [address] [place] [phone] Isabelle De Guzman, [address] [place] [address] ESOPHAGOGASTRODUODENOSCOPY (EGD), FLEXIBLE, TRANSORAL, DIAGNOSTIC 01/30/2024 2:40 PM EDT Office Visit Hepatology, [facility] [address] [place] [address] Isabelle De Guzman, [address] [place] [address] Scheduled Procedures Name Priority Associated Diagnoses Date/Ti [...] and were consensually agreed upon. Care Teams Inward Toll Operator Relationship Specialty Start Date End Date Adan Muniz MD [address] [place] [address] [place] [phone] PCP - General Family Medicine 02/22/23 documented as of this encounter
--- OUTSIDE RECORDS SUMMARY | 2023-10-04 11:24 | External Medical Summary | Summary of Care ---
Author Name Unknown Organization [facility] Address [address] [place] [address] Phone [phone] Care Team Providers Care Seat Pack Inspector Name Role Phone Adan Muniz MD Primary Care Provide r Reason for Visit * Reason Onset Date Comments Hospital Follow-Up 09/29/2023 Encounter Details Date Type Department Care Team (Late st Contact Info) Description 09/29/2023 Telephone [facility] [address] [facility] [address] Arash Archuleta CRNP [address] [place] [facility] [place] [address] Hospital Follow-Up Allergies Active Allergy Reactions Criticality Noted Date Comments Amoxicillin Rash 10/20/2017 Penicillins Rash High 10/20/2017 Other reaction(s): UNKNOWN Acetaminophen Nausea/vomiting,Othe r (Please comment),Rash 10/20/2017 Shortness of breath documented as of this encounter (statuses as of 09/29/2023) Medications Medication Sig Dispensed Refills Start Date End Date Status K Phos [place]-Sod Phos Di & [place] 155-852-130 MG Oral Tablet (K-Phos Neutral) Take [...] 02/22/2023 Other disorders of bilirubin metabolism 02/23/20 History of alcohol abuse 08/16/2022 History of [...] encounter Miscellaneous Notes * Telephone Encounter - Arash Archuleta CRNP - 09/29/2023 2:21 PM EST Seen in consult at [facility] for ETOH hepatitis. Schedulers please reach out to the pt to offer video f/u w me in 3 wks ( I can see him on Oct 25 at 2PM or 3PM - whichever he prefer). Tell him this is to see how he is doing and refill his prednisolone script. AND a f/u appt w Dr. De Guzman in hepatology clinic. He needs around 2 or 3 PM any day. documented in this encounter Plan of Treatment Upcoming Encounters Date Type Department Care Team (Latest Contact Info) Description 12/05/2023 11:45 AM EST Hospital Encounter ENDO [facility], Endoscopy Room [facility] [address] [place], [place] [phone] Isabelle De Guzman, [address] [place] [address] 12/05/2023 11:45 AM EST - 12/05/2023 12:15 PM EST Surgery ENDO [facility], Endoscopy Room [facility] [address] [place] [address] Isabelle De Guzman, [address] [place] [address] ESOPHAGOGASTRODUODENOSCOPY (EGD), FLEXIBLE, TRANSORAL, DIAGNOSTIC Scheduled Procedures [...] Code 01/20/2019 11:57 PM 01/27/2019 6:54 PM Thi s order reflects the patients wishes and were consensually agreed upon. Care Teams Seat Pack Inspector Relationship Specialty Start Date End Date Adan Muniz MD [address] [place] [address] [place] [address] PCP - General Family Medicine 02/22/23 documented as of this encounter
--- OUTSIDE RECORDS SUMMARY | 2023-10-04 11:24 | External Medical Summary | Summary of Care ---
Author Name Unknown Organization [facility] Address [address] [place] [address] Phone [phone] Care Team Providers Care Animal Impersonator Name Role Phone Adan Muniz MD Primary Care Provide r Reason for Visit * Reason Onset Date Comments Hospital Follow-Up 09/29/2023 Encounter Details Date Type Department Care Team (Late st Contact Info) Description 09/29/2023 Telephone [facility]astroenterology, [facility] [address] [facility] [address] Arash Archuleta CRNP [address] [place] [address] Hospital Follow-Up Allergies Active Allergy Reactions Criticality Noted Date Comments Amoxicillin Rash 10/20/2017 Penicillins Rash High 10/20/2017 Other reaction(s): UNKNOWN Acetaminophen Nausea/vomiting,Othe r (Please comment),Rash 10/20/2017 Shortness of breath documented as of this encounter (statuses as of 09/29/2023) Medications Medication Sig Dispensed Refills Start Date End Date Status K Phos Pershing-Sod Phos Di & Pershing 155-852-130 MG Oral Tablet (K-Phos Neutral) Take [...] encounter Miscellaneous Notes * Telephone Encounter - Madeline Cano OSA - 09/29/2023 3:19 PM EST Pt took the 10/25/23 @ 2:00 PM with Aarsh. Pt also scheduled a follow up with . * Telephone Encounter - Arash Archuleta CRNP - 09/29/2023 2:21 PM EST Seen in consult at [facility] for ETOH hepatitis. Schedulers please reach out [...] 10/25/2023 2:00 PM EST Office Visit Gastroenterology [facility] [address] [address] Arash Archuleta CRNP [address] [place] [address] 12/05/2023 11:45 AM EST Hospital Encounter ENDO [facility], Endoscopy Room [facility] [address] [place] [phone] Isabelle De Guzman, [address] [place] [address] 12/05/2023 11:45 AM EST - 12/05/2023 12:15 PM EST Surgery ENDO [facility], Endoscopy Room [facility] [address] [place] [phone] Isabelle De Guzman DO [address] [place] [address] ESOPHAGOGASTRODUODENOSCOPY (EGD), FLEXIBLE, TRANSORAL, DIAGNOSTIC 01/30/2024 2:40 PM EDT Office Visit Hepatology, [facility] [address] [place] [address] Isabelle De Guzman DO [address] [place] [address] Scheduled Procedures Name Priority Associated Diagnoses Date/Ti [...] and were consensually agreed upon. Care Teams Animal Impersonator Relationship Specialty Start Date End Date Adan Muniz MD [address] [place] [address] [place] [address] PCP - General Family Medicine 02/22/23 documented as of this encounter
--- OUTSIDE RECORDS SUMMARY | 2023-10-04 11:24 | External Medical Summary | Summary of Care ---
Author Name Unknown Organization [facility] Address [address] [place] [address] Phone [phone] Care Team Providers Care Fabric Inspector Name Role Phone Adan Muniz MD Primary Care Provide r Reason for Visit * Reason Onset Date Comments Hospital Follow-Up 09/30/2023 [facility] 09/29 Encounter Details Date Type Department Care Team (Late st Contact Info) Description 09/30/2023 Telephone Ancillary [address] [place] [address] Kasandra Felix RN Hospital Follow-Up ([facility] 09/29) Allergies Active Allergy Reactions Criticality Noted Date Comments Amoxicillin Rash 10/20/2017 Penicillins Rash High 10/20/2017 Other reaction(s): UNKNOWN Acetaminophen Nausea/vomiting,Othe r (Please comment),Rash 10/20/2017 Shortness of breath documented as of this encounter (statuses as of 09/30/2023) Medications Medication Sig Dispensed Refills Start Date End Date Status K Phos Sunflower-Sod Phos Di & Sunflower 155-852-130 MG Oral Tablet (K-Phos Neutral) Take [...] encounter Miscellaneous Notes * Telephone Encounter - Patricia Hutton OSA - 09/30/2023 2:15 PM EST Patient will like a call back in regards to admission. Thank you * Telephone Encounter - Kasandra Felix RN - 09/30/2023 1:19 PM EST Transitions of Care Note Reason for Referral:Recent Admission Phone visit for follow up: ODETTE Admitted to: [facility], Date: 09/27 Discharged to: home, Date: 09/29 Diagnosis driving hospitalization: (1) Alcoholic hepatitis: (2) Alcoholic cirrhosis: Attempted to call pt. No answer or voicemail. Will try again later * Telephone Encounter - Kasandra Felix RN - 09/30/2023 8:32 AM EST Transitions of Care Note Reason for Referral:Recent Admission Phone visit for follow up: ODETTE Admitted to: [facility], Date: 09/27 Discharged to: home, Date: 09/29 Diagnosis driving hospitalization: (1) Alcoholic hepatitis: (2) Alcoholic cirrhosis: documented in this encounter Plan of Treatment Upcoming Encounters Date Type Department Care Team (Latest Contact Info) Description 10/25/2023 2:00 PM EST Office Visit Gastroenterology , [facility] [address] [place] [address] Arash Archuleta CRNP [address] [place] [address] 12/05/2023 11:45 AM EST Hospital Encounter ENDO [facility], Endoscopy Room [facility] [address] [place] [address] Isabelle De Guzman DO [address] [place], [place] [address] 12/05/2023 11:45 AM EST - 12/05/2023 12:15 PM EST Surgery ENDO [facility], Endoscopy Room [facility] [address] [place] [address] Isabelle De Guzman DO [address] [place] [address] ESOPHAGOGASTRODUODENOSCOPY (EGD), FLEXIBLE, TRANSORAL, DIAGNOSTIC 01/30/2024 2:40 PM EDT Office Visit Hepatology, [facility] [address] [place] [address] Isabelle De Guzman DO [address] [place] [address] Scheduled Procedures Name Priority Associated Diagnoses Date/Ti [...] and were consensually agreed upon. Care Teams Fabric Inspector Relationship Specialty Start Date End Date Adan Muniz MD [address] [place] [address] [place] [address] PCP - General Family Medicine 02/22/23 documented as of this encounter
--- OUTSIDE RECORDS SUMMARY | 2023-10-04 11:24 | External Medical Summary | Summary of Care ---
Author Name Unknown Organization [facility] Address [address] [place] [address] Phone [phone] Care Team Providers Care Cafeteria Team Leader Name Role Phone Adan Muniz MD Primary Care Provide r Reason for Visit * Reason Onset Date Comments Hospital Follow-Up 09/29/2023 Encounter Details Date Type Department Care Team (Late st Contact Info) Description 09/29/2023 Telephone [facility]astroenterology, [facility] [address] [facility] [address] Arash Archuleta CRNP [address] [facility] [address] Hospital Follow-Up Allergies Active Allergy Reactions Criticality Noted Date Comments Amoxicillin Rash 10/20/2017 Penicillins Rash High 10/20/2017 Other reaction(s): UNKNOWN Acetaminophen Nausea/vomiting,Othe r (Please comment),Rash 10/20/2017 Shortness of breath documented as of this encounter (statuses as of 09/29/2023) Medications Medication Sig Dispensed Refills Start Date End Date Status K Phos Barron-Sod Phos Di & Barron 155-852-130 MG Oral Tablet (K-Phos Neutral) Take [...] took the 10/25/23 @ 2:00 PM with Arash. Pt also scheduled a follow up with . * Telephone Encounter - Arash Archuleta CRNP - 09/29/2023 2:21 PM EST Seen in consult at [facility] for ETOH hepatitis. Schedulers please reach [...] 10/25/2023 2:00 PM EST Office Visit Gastroenterology [facility] [address] [place] [address] Arash Archuleta CRNP [address] [place] [address] 12/05/2023 11:45 AM EST Hospital Encounter ENDO [facility], Endoscopy Room [facility] [address] [place] [address] Isabelle De Guzman, [address] [place] [address] 12/05/2023 11:45 AM EST - 12/05/2023 12:15 PM EST Surgery ENDO [facility], Endoscopy Room [facility] [address] [place] [address] Isabelle De Guzman DO [address] [place] [address] ESOPHAGOGASTRODUODENOSCOPY (EGD), FLEXIBLE, TRANSORAL, DIAGNOSTIC 01/30/2024 2:40 PM EDT Office Visit Hepatology, [facility] [address] [place] [address] Isabelle De Guzman DO [address] [place] [address] Scheduled Procedures Name Priority Associated Diagnoses Date/Ti [...] and were consensually agreed upon. Care Teams Cafeteria Team Leader Relationship Specialty Start Date End Date Adan Muniz MD [address] [place] [address] [place] [address] PCP - General Family Medicine 02/22/23 documented as of this encounter
--- OUTSIDE RECORDS SUMMARY | 2023-10-04 11:24 | External Medical Summary | Summary of Care ---
Author Name Unknown Organization [facility] Address [address] [place] [address] Phone [phone] Care Team Providers Care Lap Hand Tool Name Role Phone Adan Muniz MD Primary Care Provide r Reason for Visit * Reason Onset Date Comments Hospital Follow-Up 09/30/2023 [facility] 09/29 Encounter Details Date Type Department Care Team (Late st Contact Info) Description 09/30/2023 Telephone [address] [place] [address] Kasandra Felix RN Hospital Follow-Up ([facility] 09/29) Allergies Active Allergy Reactions Criticality Noted Date Comments Amoxicillin Rash 10/20/2017 Penicillins Rash High 10/20/2017 Other reaction(s): UNKNOWN Acetaminophen Nausea/vomiting,Othe r (Please comment),Rash 10/20/2017 Shortness of breath documented as of this encounter (statuses as of 09/30/2023) Medications Medication Sig Dispensed Refills Start Date End Date Status K Phos Zavala-Sod Phos Di & Zavala 155-852-130 MG Oral Tablet (K-Phos Neutral) Take [...] today, 09/30, he can be transferred to [phone]. He he calls back after 4:30 on [...] visit for follow up: ODETTE Admitted to: [facility], Date: 09/27 Discharged to: home, Date: 09/29 Diagnosis driving hospitalization: (1) Alcoholic hepatitis: (2) Alcoholic cirrhosis: Attempted to call pt. No answer and voicemail is full. Will try again later * Telephone Encounter - Kasandra Felix RN - 09/30/2023 8:32 AM EST Transitions of Care Note Reason for Referral:Recent Admission Phone visit for follow up: ODETTE Admitted to: [facility], Date: 09/27 Discharged to: home, Date: 09/29 Diagnosis driving hospitalization: (1) Alcoholic hepatitis: (2) Alcoholic cirrhosis: documented in this encounter Plan of Treatment Upcoming Encounters Date Type Department Care Team (Latest Contact Info) Description 10/25/2023 2:00 PM EST Office Visit Gastroenterology , [facility] [address] [place] [address] Arash Archuleta CRNP [address] [place] [address] 12/05/2023 11:45 AM EST Hospital Encounter ENDO [facility], Endoscopy Room [facility] [address] [place] [phone] Isabelle De Guzman DO [address] [place] [address] 12/05/2023 11:45 AM EST - 12/05/2023 12:15 PM EST Surgery ENDO [facility], Endoscopy Room [facility] [address] [place] [phone] Isabelle De Guzman, [address] [place] [address] ESOPHAGOGASTRODUODENOSCOPY (EGD), FLEXIBLE, TRANSORAL, DIAGNOSTIC 01/30/2024 2:40 PM EDT Office Visit Hepatology, [facility] [address] [place] [address] Isabelle De Guzman, [address] [place] [address] Scheduled Procedures Name Priority Associated Diagnoses Date/Ti [...] and were consensually agreed upon. Care Teams Lap Hand Tool Relationship Specialty Start Date End Date Adan Muniz MD [address] [place] [address] [place] [id number] PCP - General Family Medicine 02/22/23 documented as of this encounter
[2023-10-04 11:29] LABS: Appearance Urine Clear (Clear); Color Urine Orange; Specific Gravity Urine 1.007 (1.000-1.030)
[2023-10-04 11:43] LABS: Bacteria Urine 1+ (Negative)
[2023-10-04 11:46] LABS: Hematocrit (blood only) 31.9 % (42.0-52.0); Hemoglobin 11.3 g/dl (14.0-18.0); Mean Corpuscular Hemoglobin 36.1 pg (25.0-34.0); Mean Corpuscular Hgb Conc 35.4 g/dL (32.0-36.0); Mean Corpuscular Volume 101.9 fL (80.0-100.0); Platelet Count 52 K/uL (130-400); RDW Coefficient of Variation 17.6 % (11.5-14.5); RDW Standard Deviation 65.1 fL (36.4-46.3); Red Blood Count 3.13 M/uL (4.70-6.10); White Blood Count 16.56 K/ul (4.8-10.8)
[2023-10-04 12:09] LABS: Prothrombin Time 21.3 Seconds (9.0-12.0)
[2023-10-04 12:10] LABS: Alanine Aminotransferase 79 U/L (7-52); Albumin Level 2.2 gm/dl (3.4-5.0); Anion Gap 7 (3-11); Aspartate Aminotransferase 103 U/L (13-39); Calcium 7.8 mg/dl (8.6-10.3); Carbon Dioxide 23 mmol/L (21-32); Chloride 92 mmol/L (98-107); Glucose 104 mg/dl (70-99(Fasting)); Potassium 3.4 mmol/L (3.5-5.1); Sodium 122 mmol/L (136-145); Troponin I High Sensitivity 13.7 pg/ml (0-20)
[2023-10-04 12:16] LABS: Bilirubin,Total 34.2 mg/dl (0.2-1.0)
[2023-10-04 12:30] LABS: Bilirubin Direct 18.4 mg/dl (0-0.2)
[2023-10-04 12:31] LABS: Basophils # (auto) 0.04 K/uL (0.00-0.20); Basophils % (auto) 0.2 %; Echinocytes 1+; Eosinophils # (auto) 0.09 K/uL (0.00-0.50); Eosinophils % (auto) 0.5 %; Immature Granulocytes # (auto) 1.43 K/uL (0.01-0.20); Immature Granulocytes % (auto) 8.6 %; Lymphocytes # (auto) 1.09 K/uL (1.20-3.40); Lymphocytes % (auto) 6.6 %; Monocytes # (auto) 1.74 K/uL (0.11-0.59); Monocytes % (auto) 10.5 %; Neutrophils # (auto) 12.17 K/uL (1.40-6.50); Neutrophils % (auto) 73.6 %; Toxic Granulation 1+
[2023-10-04] MEDS ORDERED: FUROSEMIDE 40 MG/4 ML VIAL IV ONE (13:54)
[2023-10-04] MEDS ORDERED: predniSONE 20 MG TAB PO SCH (14:00)
[2023-10-04] MEDS ORDERED: prednisoLONE sod phosphate 15 MG/5 ML PO STA (14:03)
--- NOTE | 2023-10-04 14:05 | History & Physical Report ---
Date of Service October 04, 2023 Assessment & Plan (1) Decompensated hepatic cirrhosis: (2) Alcoholic hepatitis: (3) Thrombocytopenia: (4) Hyponatremia: Plan Mr. Roe is a 37 year old gentleman with history of is a year old gentleman with past medical history remarkable for decompensated (EV, ascites) presented to [facility] ED due to worsening edema and bloating. Patient was recently for similar concerns of 09/27, as well as recent onset jaundice. He was discharged on 09/30 against medical advice. At that time, he was continued on a month long prednisolone taper for acute alcoholic hepatitis. He is being admitted for further evaluation an management of worsening dec ompensation. #Alcoholic Hepatitis #Cirrhosis 2/2 ETOH, decompensated - History of decompensation: yes - MELD-Na: unable to calculate accurately due to lab error, 33 using Cr from prior admit [place] Discriminate Function: 90.8 -Coagulopathy: INR 2.0, thrombocytopenia 54 - PSE: Denies h/o HE, no evidence of HE on exam, CTM - Ascites: last para in 02/2023 with 700ml return - home Lasix:[place] 40:100; Resume home spironolactone -s/p IV Furosemide 40mg -Repeat Ascites US to assess volume given endorses increase in abdominal bloating/swelling since D/c - SBP: no history of SBP or GIB, continue to monitor, will defer ppx for SBP at this time - EV: No evidence of GIB presently, close monitoring - Will start Protonix PO given ongoing steroid use for PPX - HRS:Unable to assess given inability to obtain Cr. iso elevated TB/lab error - Daily CMP + INR to calculate MELD; low Na diet -Ethanol level pending -Infectious work up ordered iso leukocytosis though on steroid since 09/27 -Resume home prednisolone dosing (EOT ~10/25/2023) JYOTSNA SCORE 0.919 - GI consult #Hyponatremia -122, around ongoing baseline -continue 1.2L FR, Na restriction #Leukocytosis iso steroid use #Thrombocytopenia iso liver disease -Infectious workup ordered, however suspect likely related to steroids ongoing for last week -Denies infectious symptoms, but given comorbidities, low threshold for abx should concern arise -Procal -SCDS, trend inr/coags #sinus tachycardia -iso cirrhosis/liver disease, chronic -Will monitor on tele and consider addition of BB iso EV and ongoing tachycardia after stabilization of fluid status #Hypokalemia -Willl replace prn, iso IV diuersis -Trend BMP -Monitor magnesium, unable to assess level given lab error DVT SCDs iso coagulopathy Diet Low sodium, FR1.5 PCU tele Full Code at this time--"wants to take it, day by day" Admission and Anticipated Discharge Date Admission Date: Time spent evaluating patient, direct bedside care, chart review, placing orders, interpretation of diagnostic studies, discussion with consultants, patient, and family members, as well as other required patient management activities is 60 minutes. History of Present Illness Chief Complaint: Abdominal bloating Primary Care Provider: Adan Muniz MD Mr. Roe is a 37 year old gentleman with history of is a year old gentleman with past medical history remarkable for decompensated (EV, ascites) presented to [facility] ED due to worsening edema and bloating. Patient was recently for similar concerns of 09/27, as well as recent onset jaundice. He was discharged on 09/30 against medical advice. At that time, he was continued on a month long prednisolone taper for acute alcoholic hepatitis. Patient states since returning home, he has noted increased abdominal bloating and discomfort, more distention and slight swelling of lower extremities. Patient denies platypnea or orthopnea. Patient states that the yellowing of his skin has been stable. He denies nausea, vomiting, hematochezia, melena. He denies any alcohol intake since "around thanksgiving time." He states that he is compliant with his medications. He denies fevers, chill or other constitutional symptoms. In the ED, vitals were notable for BP in 100s, HR of 100-110s, and O2 sat of high 90s on room air. Imaging revealed left pleural effusion, bibasilar atelectasis EKG sinus tachy Labs with leukocytosis iso ongoing steroid use, stable hgb, ammonia wnl, unable to calculate MELD 2/2 bili level (at least 33 based upon recent Cr. that was able to be obtained from prior) ED interventions: none Consultants: Gi consulted during admission process Patient to be admitted to PCU/Tele. for further evaluation and management of decompensated cirrhosis. Allergies Allergy/AdvReac Type Severity Reaction Status Date / Time acetaminophen Allergy Intermediate ELEVATED Verified 02/13/23 19:30 FEVER amoxicillin Allergy Intermediate UNKNOWN Verified 02/13/23 19:30 Penicillins Allergy Intermediate UNKNOWN Verified 02/13/23 19:30 acetylcysteine AdvReac Difficulty Verified 09/27/23 19:30 Breathing Home Medications Medication Instructions Recorded Confirmed Type folic acid 1 mg tablet 1 mg PO QAM #30 tabs 02/17/23 10/04/23 Rx furosemide 40 mg tablet 40 mg PO QAM #30 tabs 02/17/23 10/04/23 Rx multivitamin with folic acid 400 1 tab PO QAM #30 tabs 02/17/23 10/04/23 Rx mcg tablet (Daily-Paul (with folic acid)) spironolactone 100 mg tablet 100 mg PO QAM #30 tabs 02/17/23 10/04/23 Rx prednisolone sodium phosphate 15 40 mg (13.3333 mL) PO DAILY 30 09/29/23 10/04/23 Rx mg/5 mL (3 mg/mL) oral solution days #399.999 mL potassium chloride 20 mEq 20 meq PO BID 10/04/23 10/04/23 History tablet,extended release(part/cryst) thiamine HCl (vitamin B1) 100 mg 100 mg PO QAM 10/04/23 10/04/23 History tablet Past Med/Surg History Medical History Thrombocytopenia Alcohol use disorder Alcoholic hepatitis Ascites Esophageal varices History of deep venous thrombosis Liver cirrhosis SBP (spontaneous bacterial peritonitis) Surgical History No significant past surgical history Family History Grandmother (Maternal) Colorectal cancer Mother Stroke Social History Smoking Status: Never smoker Tobacco Type: E-cigarettes / Vaping Second Hand Exposure: No; Do You Dip or Chew Tobacco: No; Hx Alcohol Use: Yes Alcohol type: wine Hx Substance Use: No Preferred Language: Khmer Communication Ability: Effective Communication Ability Comment: verbal Territory Sales Executive Required: No Beliefs That Will Affect Care: None Current Living Situation: Family Current Living Situation Comment: with two teenage daughters Feels Safe at Home: Yes Assistive Devices: None Review of Systems Review of Systems: Constitutional: (-) fever/chills, (-) recent loss of weight, (-) appetite changes, (-) night sweats. Head: (-) headache, (-) dizziness. Eye: (-) blurring of vision, (-) double vision, (-) redness. Ear: (-) hearing loss, (-) discharge, (-) vertigo Nose: (-) discharge, (-) bleeding, (-) congestion, (-) post nasal drip. Throat: (-) sore throat, (-) hoarseness of voice, (-) odynophagia. Cardiovascular: (-) chest pain, (-) palpitations, (-) syncope, (-) orthopnea, (- ) PND, (-) leg swelling. Respiratory: (-) shortness of breath, (-) cough, (-) wheezing, (-) hemoptysis. Neuro: (-) weakness in extremities, (-) numbness, (-) tingling, (-) tremor. Gastrointestinal: (-) belly pain, (++) belly distension, (++) nausea, (-) vomiting, (-) diarrhea, (-) constipation, (-) na, (-) hematemesis, (-) hematochezia, (-) bowel incontinence Genitourinary: (-) hematuria, (-) dysuria, (-) polyuria, (-) hesitancy, (-) frequency, (-) urinary incontinence. Musculoskeletal: (-) myalgia, (-) arthralgia. Skin: (-) rashes. Endocrine: (-) heat/cold intolerance. Psychiatry: (-) depression, (-) hallucination. Physical Exam Physical Exam: GENERAL APPEARANCE: AxOx4, flat affect, laying on side HEENT: NC, AT. MMM. EOMI,icterus oropharynx clear. NECK: Supple without lymphadenopathy. No stiffness or restricted ROM. HEART: tachycardic LUNGS: CTAB, moving air well. No crackles or wheezes are heard. ABDOMEN: Soft,distended, fluid wave, no guarding, peritonitis BACK: No CVAT, no obvious deformity. EXTREMITIES: 1+ BLE edema NEUROLOGICAL: Grossly nonfocal. Alert and oriented, moving all 4 extremities. CN not formally tested but appear grossly intact. Skin: extensive jaundice Results & Data Results & Data Vital Signs (Past 12 Hours) Vital Signs Temp Pulse Pulse Resp BP BP Pulse Ox 10/04/23 13:51 112 H 19 105/49 L 98 10/04/23 11:22 103 H 10/04/23 11:18 101 H 18 129/84 99 10/04/23 10:22 36.6 C 101 H 18 116/68 99 O2 Del Method 10/04/23 13:51 Room Air 10/04/23 11:22 10/04/23 11:18 Room Air 10/04/23 10:22 Laboratory Results Short CBC 10/04/23 Range/Units 11:01 WBC 16.56 H (4.8-10.8) K/ul Hgb 11.3 L (14.0-18.0) g/dl Hct 31.9 L (42.0-52.0) % Plt Count 52 L (130-400) K/uL BMP 10/04/23 11:01 Sodium 122 L Potassium 3.4 L Chloride 92 L Carbon Dioxide 23 BUN TNP Creatinine TNP Glucose 104 H Calcium 7.8 L Liver Function 10/04/23 Range/Units 11:01 Total Bilirubin 34.2 H (0.2-1.0) mg/dl Direct Bilirubin 18.4 H (0-0.2) mg/dl AST 103 H (13-39) U/L ALT 79 H (7-52) U/L Alkaline Phosphatase TNP Albumin 2.2 L (3.4-5.0) gm/dl Urine 10/04/23 Range/Units 11:01 Urine Color [place] Urine Appearance Clear (Clear) Urine pH (4.5-7.5) Ur Specific [place] 1.007 (1.000-1.030) Urine Protein (Negative) Urine Glucose (UA) (Negative) Diagnostic Findings Chest X-Ray 10/04/23 10:54 XR chest 1V portable CLINICAL HISTORY: Shortness of breath. COMPARISON STUDY: Chest CT September 29, 2017. Chest radiograph February 13, 2023 FINDINGS: There is no pneumothorax. A small left pleural effusion is present. Bibasilar opacities favor atelectasis. There is no consolidation to suggest pneumonia. Cardiomediastinal silhouette is unchanged. There is no evidence for pulmonary edema. IMPRESSION: 1. Small left pleural effusion. 2. Bibasilar opacities suggestive of atelectasis. ACT 112: Negative or not required by law. Electronically signed by: Josue Peña M.D. 10/04/2023 11:09 AM Abdomen Ultrasound 10/04/23 13:53 ULTRASOUND TO ASSESS FOR ASCITES CLINICAL HISTORY: ascites increased girth since last admit COMPARISON STUDY: CT of the abdomen and pelvis February 13, 2023. Ascites ultrasound September 27, 2023. TECHNIQUE: Sonography of the 4 quadrants was performed to assess for ascites. FINDINGS: The liver is cirrhotic. Small to moderate ascites has increased since ultrasound of September 27, 2023. Splenomegaly is again noted as well as a small left pleural effusion. IMPRESSION: Small to moderate ascites, mildly increased since prior ultrasound. ACT 112: Negative or not required by law. Electronically signed by: Josue Peña M.D. 10/04/2023 3:02 PM Medications Administered Home Medications Medication Instructions Recorded Confirmed Last Taken folic acid 1 mg tablet 1 mg PO QAM #30 tabs 02/17/23 10/04/23 10/04/23 furosemide 40 mg tablet 40 mg PO QAM #30 tabs 02/17/23 10/04/23 10/04/23 multivitamin with folic acid 400 1 tab PO QAM #30 tabs 02/17/23 10/04/23 10/04/23 mcg tablet (Daily-Paul (with folic acid)) spironolactone 100 mg tablet 100 mg PO QAM #30 tabs 02/17/23 10/04/23 10/04/23 prednisolone sodium phosphate 15 40 mg (13.3333 mL) PO DAILY 30 09/29/2310/04/23 mg/5 mL (3 mg/mL) oral solution days #399.999 mL potassium chloride 20 mEq 20 meq PO BID 10/04/23 10/04/23 10/04/23 tablet,extended release(part/cryst) thiamine HCl (vitamin B1) 100 mg 100 mg PO QAM 10/04/23 10/04/23 10/04/23 tablet Active Medications Generic Name Dose Route Start Last Admin Trade Name Freq PRN Reason Stop Dose Admin Potassium Chloride 10 meq in 100 mls @ 100 mls/hr 10/04/23 14:15 10/04/23 15:14 K Samuel / Wtr IV 10/04/23 16:14 100 mls/hr Q1H MATTIE Administration Code Status & VTE Plan VTE Prophylaxis Plan VTE Prophylaxis will be ordered: Yes (2) Alcoholic hepatitis Ascites presence: with ascites Qualified Code(s): K70.11 - Alcoholic hepatitis with ascites
[2023-10-04] MEDS ORDERED: POTASSIUM CHLORIDE CRTAB 20 MEQ TABCR PO STA (14:06)
[2023-10-04] MEDS ORDERED: PANTOprazole 40 MG TAB PO SCH (14:30)
--- NOTE | 2023-10-04 15:04 | Ultrasound Report ---
ULTRASOUND TO ASSESS FOR ASCITES CLINICAL HISTORY: ascites increased girth since last admit COMPARISON STUDY: CT of the abdomen and pelvis February 13, 2023. Ascites ultrasound September 27, 2023. TECHNIQUE: Sonography of the 4 quadrants was performed to assess for ascites. FINDINGS: The liver is cirrhotic. Small to moderate ascites has increased since ultrasound of [facility] r 2022. Splenomegaly is again noted as well as a small left pleural effusion. IMPRESSION: Small to moderate ascites, mildly increased since prior ultrasound. ACT 112: Negative or not required by law. Electronically signed by: Josue Peña M.D. 10/04/2023 3:02 PM
[2023-10-04] MEDS: POTASSIUM CHLORIDE / WTR 10 MEQ/100 ML PLCT IV SCH ×2 (15:14→16:41)
--- NOTE | 2023-10-04 15:43 | Electrocardiogram Report ---
Test Reason : Blood Pressure : / mmHG Vent. Rate : 110 BPM Atrial Rate : 110 BPM P-R Int : 142 ms QRS Dur : 088 ms QT Int : 370 ms P-R-T Axes : 059 050 048 degrees QTc Int : 500 ms Sinus tachycardia Otherwise normal ECG When compared with ECG of 27-SEP-2023 18:33, No significant change was found Confirmed by Raad Bautista ([id number]) on 10/04/2023 3:43:41 PM Referred By: REFERRED SELF Confirmed By:Luis Manuel Bautista
[2023-10-04] MEDS: SPIRONOLACTONE 100 MG TAB PO SCH (17:02)
--- OUTSIDE RECORDS SUMMARY | 2023-10-04 17:27 | External Medical Summary | Summary of Care ---
Author Name Unknown Organization [facility] Address [address] [place] [address] Phone [phone] Care Team Providers Care Market Relationship Manager Name Role Phone Adan Muniz MD Primary Care Provide r Reason for Visit * Reason Onset Date Comments Hospital Follow-Up 09/30/2023 [facility] 09/29 Encounter Details Date Type Department Care Team (Late st Contact Info) Description 09/30/2023 Telephone Ancillary [address] [place] [address] Kasandra Felix RN Hospital Follow-Up ([facility] 09/29) Allergies Active Allergy Reactions Criticality Noted Date Comments Amoxicillin Rash 10/20/2017 Penicillins Rash High 10/20/2017 Other reaction(s): UNKNOWN Acetaminophen Nausea/vomiting,Othe r (Please comment),Rash 10/20/2017 Shortness of breath documented as of this encounter (statuses as of 10/04/2023) Medications Medication Sig Dispensed Refills Start Date End Date Status K [place]-Sod Phos Di & Park [phone] MG Oral Tablet (K-Phos Neutral) Take [...] as of this encounter (statuses as of 10/04/2023) Active Problems Problem Noted Date Diagnosed Date [...] as of this encounter (statuses as of 10/04/2023) Resolved Problems Problem Noted Date Diagnosed Date Resolved Date SBP (spontaneous bacterial peritonitis) 01/23/2019 02/22/2023 DVT (deep venous thrombosis) 01/21/2019 01/22/2019 Overview: In 2017 - treated for 3 months with AC Alcohol abuse 01/21/2019 08/16/2022 Coagulation defect 01/21/2019 2 Cellulitis, abdominal wall 01/21/2019 1 10/16/2021 Reflux esophagitis 01/15/2006 1 documented as of this encounter (statuses as of 10/04/2023) Immunizations Name Administration Dates Next Due DTaP [...] encounter Miscellaneous Notes * Telephone Encounter - Meseret Rodriguez RN - 10/04/2023 11:16 AM EST Transitions of Care Note Reason for Referral:Recent Admission Phone visit for follow up: ODETTE Admitted to: [facility], Date: 09/27 Discharged to: home, Date: 09/29 Diagnosis driving hospitalization: (1) Alcoholic hepatitis: (2) Alcoholic cirrhosis Attempted to call again. Unable to leave VM. * Telephone Encounter - Kasandra Felix RN - 09/30/2023 3:14 PM EST Attempted to call pt again. No answer and voicemail is full If he calls back today, 09/30, he can be transferred to [phone]. He he calls back after 4:30 on [...] visit for follow up: ODETTE Admitted to: [facility], Date: 09/27 Discharged to: home, Date: 09/29 Diagnosis driving hospitalization: (1) Alcoholic hepatitis: (2) Alcoholic cirrhosis: Attempted to call pt. No answer and voicemail is full. Will try again later * Telephone Encounter - Kasandra Felix RN - 09/30/2023 8:32 AM EST Transitions of Care Note Reason for Referral:Recent Admission Phone visit for follow up: ODETTE Admitted to: [facility], Date: 09/27 Discharged to: home, Date: 09/29 Diagnosis driving hospitalization: (1) Alcoholic hepatitis: (2) Alcoholic cirrhosis: documented in this encounter Plan of Treatment Upcoming Encounters Date Type Department Care Team (Latest Contact Info) Description 10/25/2023 2:00 PM EST Office Visit Gastroenterology , [address] [place] [address] Arash Archuleta CRNP [address] [place], [place] [address] 12/05/2023 11:45 AM EST Hospital Encounter ENDO [facility], Endoscopy Room [facility] [address] [place], [place] [address] Isabelle De Guzman, DO [address] [place], [place] [id number] 12/05/2023 11:45 AM EST - 12/05/2023 12:15 PM EST Surgery ENDO [facility], Endoscopy Room [facility] [address] [place], [place] [address] Isabelle De Guzman, [address] [place], [place] [address] ESOPHAGOGASTRODUODENOSCOPY (EGD), FLEXIBLE, TRANSORAL, DIAGNOSTIC 01/30/2024 2:40 PM EDT Office Visit Hepatology, [facility] [address] [place], [place] [address] Isabelle De Guzman, [address] [place], [place] [address] Scheduled Procedures Name Priority Associated Diagnoses Date/Ti [...] and were consensually agreed upon. Care Teams Market Relationship Manager Relationship Specialty Start Date End Date Adan Muniz MD [address] [place] [address] [place] [id number] PCP - General Family Medicine 02/22/23 documented as of this encounter
[2023-10-04 18:02] LABS: Anion Gap 7 (3-11); Calcium 7.3 mg/dl (8.6-10.3); Carbon Dioxide 22 mmol/L (21-32); Chloride 94 mmol/L (98-107); Glucose 133 mg/dl (70-99(Fasting)); Potassium 3.3 mmol/L (3.5-5.1); Sodium 123 mmol/L (136-145)
[2023-10-04 18:03] LABS: Blood Urea Nitrogen 21 mg/dl (6-23); Magnesium 1.9 mg/dl (1.7-2.4)
[2023-10-05 06:47] LABS: Alanine Aminotransferase 69 U/L (7-52); Albumin Globulin Ratio 0.6 (0.9-2); Albumin Level 1.9 gm/dl (3.4-5.0); Anion Gap 5 (3-11); Aspartate Aminotransferase 87 U/L (13-39); Bilirubin,Total 27.1 mg/dl (0.2-1.0); Calcium 7.4 mg/dl (8.6-10.3); Carbon Dioxide 22 mmol/L (21-32); Chloride 95 mmol/L (98-107); Globulin 3.3 gm/dl (2.5-4.0); Glucose 103 mg/dl (70-99(Fasting)); Phosphorus 2.9 mg/dl (2.5-4.9); Potassium 3.6 mmol/L (3.5-5.1); Sodium 122 mmol/L (136-145); Total Protein 5.2 gm/dl (6.0-8.3)
[2023-10-05 06:48] LABS: Blood Urea Nitrogen 20 mg/dl (6-23)
[2023-10-05 06:49] LABS: Alkaline Phosphatase 154 U/L (34-104)
[2023-10-05 06:51] LABS: Prothrombin Time 20.8 Seconds (9.0-12.0)
[2023-10-05 07:09] LABS: Hematocrit (blood only) 27.8 % (42.0-52.0); Hemoglobin 9.8 g/dl (14.0-18.0); Mean Corpuscular Hemoglobin 35.9 pg (25.0-34.0); Mean Corpuscular Hgb Conc 35.3 g/dL (32.0-36.0); Mean Corpuscular Volume 101.8 fL (80.0-100.0); Mean Platelet Volume 9.8 fL (9.4-12.4); Platelet Count 42 K/uL (130-400); RDW Coefficient of Variation 17.4 % (11.5-14.5); RDW Standard Deviation 63.8 fL (36.4-46.3); Red Blood Count 2.73 M/uL (4.70-6.10)
[2023-10-05] MEDS: FUROSEMIDE 40 MG/4 ML VIAL IV SCH (08:01)
[2023-10-05] MEDS: SPIRONOLACTONE 100 MG TAB PO SCH (08:01)
[2023-10-05] MEDS: PANTOprazole 40 MG TAB PO SCH (08:01)
[2023-10-05] MEDS: MULTIVITAMIN TAB PO SCH (08:01)
[2023-10-05] MEDS: FOLIC ACID 1 MG TAB PO SCH (08:01)
[2023-10-05] MEDS: THIAMINE HCL 100 MG TAB PO SCH (08:01)
[2023-10-05] MEDS: ALBUMIN 25% 25 GM/100 ML VIAL IV SCH ×2 (09:43→11:20)
--- NOTE | 2023-10-05 10:43 | Gastrointestinal Consultation ---
Date of Consultation October 05, 2023 Assessment & Plan (1) Decompensated hepatic cirrhosis: (2) Alcoholic hepatitis: Pt is a 37 yo male w decompensated cirrhosis, ascites, hx of esophageal varices, admitted with increasing abd distension. MELD unable to be calculated due to Cr unavailable (icterus specimen), Tremaine DF score >35. - Continue PPI, B1, Folic acid - US paracentesis w fluid analysis, cx scheduled for tomorrow. Albumin 25% 50g IV if >5L of ascites removed - Trend LFTs - Prednisolone 40mg daily - Lasix 40mg + Spironolactone 100mg - 2g Na diet; 1.5L fluid restriction - Strict ETOh abstinence advised - Avoid NSAIDs, no APAP >2g a day - F/U GI (10/25/2023) & Hepatology (01/30/2024); EGD 12/05/2023. Supervising Physician Co-Signing Physician Notes I personally saw and evaluated the patient on 10/05/2023 with DORIS Nickerson and agree with her findings and plan of care. 37 y/o M with history of decompensated alcohol cirrhosis c/b ascites and EV recently admitted with alcohol hepatitis and left AMA who presented with reports of worsening abdominal distention. He reports that he had not drank since February but did drink around 4 oz of wine after (though i suspect he has had much more alcohol than this given his lab abnormalities and he has told multiple people different stories and amounts). He was taking his lasix 40 mg daily and aldactone 100 mg daily at home. He was discharged with prednisolone that he states he did take for the 3 days until he returned.On admission T bili 34, AST 103, ALT 79, ALP 154, INR 2, platelets 42. Na 122. On exam he is notably jaundiced with scleral icterus. he has moderate ascites on exam, 2+ LLE edema and 1+ RLE edema. AAOx3 without asterixis. Recommend holding diuretics given hyponatremia for the time being. Diagnostic + therapeutic paracentesis tomorrow. Send for cell count and diff, culture, total protein, and albumin. 1.5L fluid restriction. 2 gram sodium restricted diet. Continue prednisolone 40 mg daily for the 30 day course. PETH test sent yesterday as I suspect he is drinking much more than he reports. He needs alcohol counseling and to remain abstinent completely from all alcohol moving forward. unable to calculate MELD score as there is no Cr but it will be in the 30s. Trend sodium BID. Daily MELD labs. He is not a transplant candidate at this time given active alcohol abuse and he has been non-compliant missing all follow up hepatology appointments in the outpatient setting. Isabelle De Guzman DO Gastroenterology and Hepatology History of Present Illness Reason for Consultation: Decompensated liver failure Requesting Physician: Dr. Yinka Wong Attending Physician: Dr. Isabelle De Guzman History of Present Illness Patient is a 37 years old male with history of alcohol hepatitis, cirrhosis, with complications of large esophageal varices, ascites formation who presented with worsening edema and bloating. He was chest discharged on 09/30/2023 against AMA. Admitted for similar symptoms at that time but swelling and abd distension has progressively gotten worse. Did not have sufficient ascites for paracentesis removal then. He was DC'd on Prednisolone taper for ETOh hepatitis, states he had continued taking this med along w his diuretics of Spironolactone and Lasix. He tries to comply with his 2g Na diet. Suspect he may still be consuming ETOH - mixed reports of when he last ingested ETOH (states before thanksgiving on admission, and reports to me that he had a "little bit of wine" this month). Workup showed that he is somewhat tachycardic, with leukocytosis, macrocytic anemia, thrombocytopenia. Platelet of 42, INR 2.0. LFTs: T. bili 34, AST 103, ALT 79, alkaline phosphatase 154. Na 122 Alcohol level yesterday less than 10. Chest x-ray showed left pleural effusion and bibasilar atelectasis, abdominal ultrasound up to moderate amount of ascites noted increased from prior exam. EGD 2017: Grade II varices, portal hypertensive gastropathy Allergies Allergy/AdvReac Type Severity Reaction Status Date / Time acetaminophen Allergy Intermediate ELEVATED Verified 02/13/23 19:30 FEVER amoxicillin Allergy Intermediate UNKNOWN Verified 02/13/23 19:30 Penicillins Allergy Intermediate UNKNOWN Verified 02/13/23 19:30 acetylcysteine AdvReac Difficulty Verified 09/27/23 19:30 Breathing Home Medications Medication Instructions Recorded Confirmed Type folic acid 1 mg tablet 1 mg PO QAM #30 tabs 02/17/23 10/04/23 Rx furosemide 40 mg tablet 40 mg PO QAM #30 tabs 02/17/23 10/04/23 Rx multivitamin with folic acid 400 1 tab PO QAM #30 tabs 02/17/23 10/04/23 Rx mcg tablet (Daily-Paul (with folic acid)) spironolactone 100 mg tablet 100 mg PO QAM #30 tabs 02/17/23 10/04/23 Rx prednisolone sodium phosphate 15 40 mg (13.3333 mL) PO DAILY 30 09/29/23 10/04/23 Rx mg/5 mL (3 mg/mL) oral solution days #399.999 mL potassium chloride 20 mEq 20 meq PO BID 10/04/23 10/04/23 History tablet,extended release(part/cryst) thiamine HCl (vitamin B1) 100 mg 100 mg PO QAM 10/04/23 10/04/23 History tablet Patient History Medical History Thrombocytopenia Alcohol use disorder Alcoholic hepatitis Ascites Esophageal varices History of deep venous thrombosis Liver cirrhosis SBP (spontaneous bacterial peritonitis) Surgical History No significant past surgical history Family History Grandmother (Maternal) Colorectal cancer Mother Stroke Social History Smoking Status: Never smoker Tobacco Type: E-cigarettes / Vaping Second Hand Exposure: No; Do You Dip or Chew Tobacco: No; Hx Alcohol Use: Yes Alcohol type: wine Hx Substance Use: No Preferred Language: Sami Communication Ability: Effective Communication Ability Comment: verbal Replanting Machine Crewman Required: No Beliefs That Will Affect Care: None Current Living Situation: Family Current Living Situation Comment: with two teenage daughters Feels Safe at Home: Yes Assistive Devices: None Review of Systems Review of Systems: All systems reviewed & are unremarkable except as noted in HPI & below Physical Exam Constitutional: WD/WN, vitals as above well groomed, cooperative and comfortable Eyes: PERRL, conjunctivae normal, anicteric sclerae (icteric sclera ) ENMT: external ear and nose normal, oropharynx normal Respiratory: normal respiratory effort, lungs clear to auscultation Cardiovascular: RRR, no murmur, no edema + 1 leg edema Gastrointestinal (Abdomen): normal bowel sounds, soft, nontender, no hepatosplenomegaly Skin: no rashes, warm and dry + jaundice Neurologic: Motor/Sensory: no asterixis Psychiatric: A+Ox3, euthymic affect Lymphatic: no lymphedema Results & Data Vital Signs (Past 12 Hours) Vital Signs Temp Pulse Pulse Resp BP Pulse Ox O2 Del Method 10/05/23 08:51 105 H 10/05/23 07:27 36.8 C 103 H 18 115/64 97 Room Air 10/05/23 02:46 36.6 C 101 H 15 130/75 98 Room Air 10/04/23 22:58 36.4 C L 108 H 16 113/59 L 98 Room Air 10/04/23 22:41 112 H (2) Alcoholic hepatitis Ascites presence: with ascites Qualified Code(s): K70.11 - Alcoholic hepatitis with ascites
[2023-10-05] MEDS: prednisoLONE sod phosphate 15 MG/5 ML PO SCH (10:44)
--- NOTE | 2023-10-05 14:38 | Hospitalist Progress Note ---
Date of Service October 05, 2023 Assessment & Plan (1) Decompensated hepatic cirrhosis: (2) Alcoholic hepatitis: (3) Thrombocytopenia: (4) Hyponatremia: Plan Mr. Roe is a 37 year old gentleman with history of is a year old gentleman with past medical history remarkable for decompensated (EV, ascites) presented to [facility] ED due to worsening edema and bloating. Patient was recently for similar concerns of 09/27, as well as recent onset jaundice. He was discharged on 09/30 against medical advice. At that time, he was continued on a month long prednisolone taper for acute alcoholic hepatitis. He is being admitted for further evaluation an management of worsening dec ompensation. #Alcoholic Hepatitis #Cirrhosis 2/2 ETOH, decompensated - History of decompensation: yes - MELD-Na: unable to calculate accurately due to lab error, 33 using Cr from prior admit [place] Discriminate Function: 90.8 -Coagulopathy: INR 2.0, thrombocytopenia 54 - PSE: Denies h/o HE, no evidence of HE on exam, CTM - Ascites: last para in 02/2023 with 700ml return - home Lasix:Flo 40:100; Resume home spironolactone -s/p IV Furosemide 40mg -Repeat Ascites US to assess volume given endorses increase in abdominal bloating/swelling since D/c - SBP: no history of SBP or GIB, continue to monitor, will defer ppx for SBP at this time - EV: No evidence of GIB presently, close monitoring - Will start Protonix PO given ongoing steroid use for PPX - HRS:Unable to assess given inability to obtain Cr. iso elevated TB/lab error - Daily CMP + INR to calculate MELD; low Na diet -Ethanol level pending -Infectious work up ordered iso leukocytosis though on steroid since 09/27 -Resume home prednisolone dosing (EOT ~10/25/2023) JYOTSNA SCORE 0.919 - GI consult 10/05 for paracentesis tomorrow with albumin IV x 2 on Prednisolone on Lasix + Aldactome #Hyponatremia -122, around ongoing baseline -continue 1.2L FR, Na restriction 10/05 Na still 122 Nephro consulted #Leukocytosis iso steroid use #Thrombocytopenia iso liver disease -Infectious workup ordered, however suspect likely related to steroids ongoing for last week -Denies infectious symptoms, but given comorbidities, low threshold for abx should concern arise -Procal -SCDS, trend inr/coags #sinus tachycardia -iso cirrhosis/liver disease, chronic -Will monitor on tele and consider addition of BB iso EV and ongoing tachycardia after stabilization of fluid status #Hypokalemia replaced DVT SCDs iso coagulopathy Diet Low sodium, FR1.5 PCU tele Full Code at this time--"wants to take it, day by day" Admission and Anticipated Discharge Date Admission Date: October 04, 2023 Subjective ff up for acute decompensation of liver cirrhosis, etc seen resting in bed, comfortable watching TV states he feels improved compared to admission less abdominal distention no chest pain, dyspnea, palpitations, dizziness no fever/chills, abdominal pain no other symptoms states last drink was during no other symptoms Review of Systems Review of Systems: all noted and negative except for above Physical Exam Physical Exam: General- oriented x 3, not in distress, speaks in sentences with no effort or accessory muscle use Eyes- anicteric Neck- no JVD Lungs- clear breath sounds bilaterally, no rales/wheezes Heart- normal rate, regular rhythm; no murmurs Abdomen- normal bowel sounds, mildly distended, soft, nontender Extremities- no pretibial edema, no calf tenderness Neuro- alert, oriented x 3; no gross focal neurologic deficits Skin- warm & dry Results & Data Results & Data Vital Signs (Past 12 Hours) Vital Signs Temp Pulse Pulse Resp BP Pulse Ox O2 Del Method 10/05/23 11:45 36.7 C 112 H 18 115/63 97 Room Air 10/05/23 08:51 105 H 10/05/23 07:27 36.8 C 103 H 18 115/64 97 Room Air 10/05/23 02:46 36.6 C 101 H 15 130/75 98 Room Air all noted and reviewed including below (2) Alcoholic hepatitis Ascites presence: with ascites Qualified Code(s): K70.11 - Alcoholic hepatitis with ascites
--- NOTE | 2023-10-05 15:41 | Nephrology Consultation ---
Date of Consultation October 05, 2023 Assessment & Plan (1) Hyponatremia: Patient with hyponatremia due to decompensated cirrhosis. Sodium is 122 today. He endorsed high-volume of water intake. He is trying to cut down. He also reports quitting alcohol. -Will give him urea 15 g twice daily. -Continue fluid restriction of 1.5 L daily. -Daily BMP (2) Alcoholic cirrhosis: Patient with decompensated cirrhosis. Will continue Lasix 40 and Aldactone 100 mg daily although if sodium does not improve with the urea we may have to reduce the Aldactone which also tends to cause hyponatremia. History of Present Illness Reason for Consultation: Hyponatremia Requesting Physician: Yinka Wong MD Attending Physician: Yinka Wong MD History of Present Illness Is a 37-year-old male with history of decompensated alcoholic cirrhosis complicated by ascites who was admitted with abdominal swelling and leg swelling. Patient recently hospitalized for similar symptoms but left AMA. He has been drinking intermittently although trying to quit overall. He was found to have low sodium of 124 prior to admission but downtrending further to 122. He has been given Lasix and Aldactone. Abdominal swelling is subsiding. He is planned for paracentesis tomorrow. He denies any shortness of breath. Legs are mildly swollen. He endorses high water intake at home but trying to cut down. Patient also with elevated liver enzymes. Allergies Allergy/AdvReac Type Severity Reaction Status Date / Time acetaminophen Allergy Intermediate ELEVATED Verified 02/13/23 19:30 FEVER amoxicillin Allergy Intermediate UNKNOWN Verified 02/13/23 19:30 Penicillins Allergy Intermediate UNKNOWN Verified 02/13/23 19:30 acetylcysteine AdvReac Difficulty Verified 09/27/23 19:30 Breathing Home Medications Medication Instructions Recorded Confirmed Type folic acid 1 mg tablet 1 mg PO QAM #30 tabs 02/17/23 10/04/23 Rx furosemide 40 mg tablet 40 mg PO QAM #30 tabs 02/17/23 10/04/23 Rx multivitamin with folic acid 400 1 tab PO QAM #30 tabs 02/17/23 10/04/23 Rx mcg tablet (Daily-Paul (with folic acid)) spironolactone 100 mg tablet 100 mg PO QAM #30 tabs 02/17/23 10/04/23 Rx prednisolone sodium phosphate 15 40 mg (13.3333 mL) PO DAILY 30 09/29/23 10/04/23 Rx mg/5 mL (3 mg/mL) oral solution days #399.999 mL potassium chloride 20 mEq 20 meq PO BID 10/04/23 10/04/23 History tablet,extended release(part/cryst) thiamine HCl (vitamin B1) 100 mg 100 mg PO QAM 10/04/23 10/04/23 History tablet Patient History Medical History Thrombocytopenia Alcohol use disorder Alcoholic hepatitis Ascites Esophageal varices History of deep venous thrombosis Liver cirrhosis SBP (spontaneous bacterial peritonitis) Surgical History No significant past surgical history Family History Grandmother (Maternal) Colorectal cancer Mother Stroke Social History Smoking Status: Never smoker Tobacco Type: E-cigarettes / Vaping Second Hand Exposure: No; Do You Dip or Chew Tobacco: No; Hx Alcohol Use: Yes Alcohol type: wine Hx Substance Use: No Preferred Language: Armenian Communication Ability: Effective Communication Ability Comment: verbal Customs Appraiser Required: No Beliefs That Will Affect Care: None Current Living Situation: Family Current Living Situation Comment: with two teenage daughters Feels Safe at Home: Yes Assistive Devices: None Review of Systems 2 Review of Systems: All other systems were reviewed and negative except as noted in HPI Physical Exam 2 Physical Exam: General exam: Appears comfortable, no acute distress HEENT: Pupils are equal and reactive to light Neck: No JVD, neck is supple trachea is midline Respiratory system: Clear breath sounds bilaterally. Gastrointestinal: Abdomen is soft, non distended, non tender, bowel sounds are present CVS: Regular rate and rhythm. No murmurs, rubs or gallops Musculoskeletal: No joint or muscle tenderness Extremities: Non tender, no edema, peripheral pulses are present Neuro: Oriented, no tremors, no focal neurological deficits Skin: No rashes, deep jaundice Results & Data Vital Signs (Past 12 Hours) Vital Signs Temp Pulse Pulse Resp BP Pulse Ox O2 Del Method 10/05/23 14:53 112 H 10/05/23 11:45 36.7 C 112 H 18 115/63 97 Room Air 10/05/23 08:51 105 H 10/05/23 07:27 36.8 C 103 H 18 115/64 97 Room Air Laboratory Results 10/05/23 05:41 10/05/23 05:41 WBC 14.00 H RBC 2.73 L MCV 101.8 H MCH 35.9 H MCHC 35.3 RDW Std Deviation 63.8 H RDW Coeff of Marilyn 17.4 H Plt Count 42 L MPV 9.8 Phosphorus 2.9 Albumin 1.9 L (2) Alcoholic cirrhosis Ascites presence: with ascites Qualified Code(s): K70.31 - Alcoholic cirrhosis of liver with ascites
[2023-10-05] MEDS: UREA (UREA-NA) 15 GM PACK PO SCH ×2 (16:18→20:08)
--- NOTE | 2023-10-06 08:41 | Ultrasound Report ---
Ultrasound-guided paracentesis INDICATION: Ascites PROCEDURE: Procedure and risks were explained. Informed consent was obtained. A final timeout was com pleted. The abdomen was prepped and draped in sterile fashion. 1% buffered lidocaine was utilized for skin anesthesia. Utilizing ultrasound guidance, a 5 [place] safety centesis catheter was advanced into the left lower q uadrant pocket of ascites. Ultrasound images were obtained. 600 mL of clear yellow ascites fluid was removed and sent to the lab for analysis. The catheter was removed and Band-Aid applied. The patient tolerated the procedure well. Vital signs will be monitored postprocedure. IMPRESSION: Paracentesis as above. Performed, dictated, and signed by Natan Steward PA-C; to be co-signed by Dr. Josue Peña. Electronically signed by: Josue Peña M.D. 10/06/2023 12:20 PM
[2023-10-06] MEDS: UREA (UREA-NA) 15 GM PACK PO SCH ×2 (09:06→20:28)
[2023-10-06] MEDS: MULTIVITAMIN TAB PO SCH (09:07)
[2023-10-06] MEDS: prednisoLONE sod phosphate 15 MG/5 ML PO SCH (09:07)
[2023-10-06] MEDS: PANTOprazole 40 MG TAB PO SCH (09:08)
[2023-10-06] MEDS: THIAMINE HCL 100 MG TAB PO SCH (09:08)
[2023-10-06] MEDS: FOLIC ACID 1 MG TAB PO SCH (09:08)
[2023-10-06 09:18] LABS: Albumin Peritoneal Fluid < 1.5 gm/dl
[2023-10-06 09:24] LABS: Total Protein Peritoneal Fluid < 3.0 gm/dl
[2023-10-06 09:41] LABS: Hematocrit (blood only) 28.7 % (42.0-52.0); Hemoglobin 10.2 g/dl (14.0-18.0); Mean Corpuscular Hgb Conc 35.5 g/dL (32.0-36.0); Mean Platelet Volume 9.6 fL (9.4-12.4); Platelet Count 37 K/uL (130-400); RDW Standard Deviation 67.6 fL (36.4-46.3); Red Blood Count 2.76 M/uL (4.70-6.10); White Blood Count 11.13 K/ul (4.8-10.8)
--- NOTE | 2023-10-06 09:50 | Gastroenterology Progress Note ---
Date of Service October 06, 2023 Assessment & Plan (1) Decompensated hepatic cirrhosis: (2) Alcoholic hepatitis: Plan: Pt is a 37 yo male w decompensated cirrhosis, ascites, hx of esophageal varices, admitted with increasing abd distension. MELD unable to be calculated due to Cr unavailable (icterus specimen), [facility] DF score >35. - AM labs pending, will f/u results - Continue PPI, B1, Folic acid - F/U fluid analysis labs from paracentesis today (600mL ascites fluid removed) - Trend LFTs - Prednisolone 40mg daily - Diuretics held for hyponatremia, will f/u electrolytes results this AM before restarting. - 2g Na diet; 1.5L fluid restriction - Strict ETOh abstinence advised - Avoid NSAIDs, no APAP >2g a day - F/U GI (10/25/2023) & Hepatology (01/30/2024); EGD 12/05/2023. Admission and Anticipated Discharge Date Admission Date: October 04, 2023 Supervising Physician Co-Signing Physician Notes I personally saw and evaluated the patient on 10/06/2023 with DORIS Nickerson and agree with her findings and plan of care. 37 y/o M with history of decompensated alcohol cirrhosis c/b ascites and EV recently admitted with alcohol hepatitis and left AMA who presented with reports of worsening abdominal distention. He reports that he had not drank since February but did drink around 4 oz of wine after (though i suspect he has had much more alcohol than this given his lab abnormalities and he has told multiple people different stories and amounts). He was taking his lasix 40 mg daily and aldactone 100 mg daily at home. He was discharged with prednisolone that he states he did take for the 3 days until he returned.On admission T bili 34, AST 103, ALT 79, ALP 154, INR 2, platelets 42. Na 122. Paracentesis from today without any SBP. On exam he is notably jaundiced with scleral icterus. he has small ascites on exam, 2+ LLE edema and 1+ RLE edema. AAOx3 without asterixis. Ok to resume diuretics as sodium has improved to 130. Lasix 40 gm daily and aldactone 100 mg daily. 1.5L fluid restriction. 2 gram sodium restricted diet. Continue prednisolone 40 mg daily for the 30 day course. PETH test sent on admission as I suspect he is drinking much more than he reports. He needs alcohol counseling and to remain abstinent completely from all alcohol moving forward. Daily MELD labs. He is not a transplant candidate at this time given active alcohol abuse and he has been non-compliant missing all follow up hepatology appointments in the outpatient setting. Isabelle De Guzman, DO Gastroenterology and Hepatology Subjective Pt had US paracentesis w 600mL of ascites fluid removed. He denies CP, SOB, abd pain, n/v. Had BM last night, wo blood or black tarry stools. Review of Systems Review of Systems: All systems reviewed & are unremarkable except as noted in HPI & below Physical Exam Constitutional: WD/WN, vitals as above well groomed, cooperative and comfortable Eyes: PERRL, conjunctivae normal, anicteric sclerae (icteric sclera) ENMT: external ear and nose normal, oropharynx normal Respiratory: normal respiratory effort, lungs clear to auscultation Cardiovascular: RRR, no murmur, no edema Gastrointestinal (Abdomen): normal bowel sounds, soft, nontender, no hepatosplenomegaly Skin: no rashes, warm and dry + jaundice Neurologic: Motor/Sensory: no asterixis Psychiatric: A+Ox3, euthymic affect Lymphatic: no lymphedema Results & Data Vital Signs (Past 12 Hours) Vital Signs Temp Pulse Pulse Resp BP Pulse Ox O2 Del Method 10/06/23 09:28 96 H 18 122/66 98 Room Air 10/06/23 09:06 36.6 C 105 H 16 129/72 97 Room Air 10/06/23 08:47 105 H 18 132/78 96 Room Air 10/06/23 07:25 36.8 C 109 H 16 106/65 97 Room Air 10/06/23 03:00 36.4 C L 106 H 14 110/57 L 98 Room Air 10/05/23 23:00 103 H 17 121/62 100 Room Air 10/05/23 21:56 100 H (2) Alcoholic hepatitis Ascites presence: with ascites Qualified Code(s): K70.11 - Alcoholic hepatitis with ascites
[2023-10-06 10:04] LABS: Appearance Peritoneal Fluid Clear; Color Peritoneal Fluid Yellow; Lymphocytes, Fluid 49 %; Mono,Macrophage,Mesothelial 24 %; Neutrophils, Fluid 27 %; RBC Peritoneal Fluid Auto < 2000 /uL; WBC Peritoneal Fluid Auto 112 /ul (0-300)
[2023-10-06 10:10] LABS: Basophils # (auto) 0.02 K/uL (0.00-0.20); Basophils % (auto) 0.2 %; Echinocytes 2+; Eosinophils # (auto) 0.08 K/uL (0.00-0.50); Eosinophils % (auto) 0.7 %; Immature Granulocytes % (auto) 6.3 %; Lymphocytes # (auto) 1.01 K/uL (1.20-3.40); Lymphocytes % (auto) 9.1 %; Monocytes % (auto) 8.1 %; Neutrophils # (auto) 8.42 K/uL (1.40-6.50); Neutrophils % (auto) 75.6 %; Polychromasia 1+
[2023-10-06 10:14] LABS: Prothrombin Time 20.6 Seconds (9.0-12.0)
[2023-10-06 10:24] LABS: Alanine Aminotransferase 75 U/L (7-52); Albumin Level 2.6 gm/dl (3.4-5.0); Anion Gap 7 (3-11); Aspartate Aminotransferase 90 U/L (13-39); Bilirubin,Total 36.1 mg/dl (0.2-1.0); Calcium 8.5 mg/dl (8.6-10.3); Carbon Dioxide 25 mmol/L (21-32); Chloride 98 mmol/L (98-107); Glucose 102 mg/dl (70-99(Fasting)); Potassium 3.5 mmol/L (3.5-5.1); Sodium 130 mmol/L (136-145); Total Protein 5.8 gm/dl (6.0-8.3)
[2023-10-06 11:23] LABS: Bilirubin Direct 20.7 mg/dl (0-0.2)
--- NOTE | 2023-10-06 12:41 | Nephrology Progress Note ---
Date of Service October 06, 2023 Assessment & Plan (1) Hyponatremia: Plan: Patient with hyponatremia due to decompensated cirrhosis. Sodium is 130 today. He endorsed high-volume of water intake. He is trying to cut down. He also reports quitting alcohol. -Will continue urea 15 g twice daily. -Continue fluid restriction of 1.5 L daily. -Daily BMP (2) Alcoholic cirrhosis: Plan: Patient with decompensated cirrhosis. Will continue Lasix 40 and Aldactone 100 mg daily although if sodium does not improve with the urea we may have to reduce the Aldactone which also tends to cause hyponatremia. Admission and Anticipated Discharge Date Admission Date: October 04, 2023 Subjective Seen for hyponatremia. He feels better today. Sodium is uptrending. He does not think he will be able to maintain the fluid limit of 1.5 L daily. He was used to drinking a gallon daily. He is interested in getting urea outpatient. Review of Systems 2 Review of Systems: All other systems were reviewed and negative except as noted in HPI Physical Exam 2 Physical Exam: General exam: Appears comfortable, no acute distress HEENT: Pupils are equal and reactive to light Neck: No JVD, neck is supple trachea is midline Respiratory system: Clear breath sounds bilaterally. Gastrointestinal: Abdomen is soft, non distended, non tender, bowel sounds are present CVS: Regular rate and rhythm. No murmurs, rubs or gallops Musculoskeletal: No joint or muscle tenderness Extremities: Non tender, no edema, peripheral pulses are present Neuro: Oriented, no tremors, no focal neurological deficits Skin: No rashes, deep jaundice Results & Data Vital Signs (Past 12 Hours) Vital Signs Temp Pulse Resp BP Pulse Ox O2 Del Method 10/06/23 11:57 37.1 C 69 17 141/71 H 97 Room Air 10/06/23 11:47 36.8 C 103 H 18 120/66 97 Room Air 10/06/23 09:28 96 H 18 122/66 98 Room Air 10/06/23 09:06 36.6 C 105 H 16 129/72 97 Room Air 10/06/23 08:47 105 H 18 132/78 96 Room Air 10/06/23 07:25 36.8 C 109 H 16 106/65 97 Room Air 10/06/23 03:00 36.4 C L 106 H 14 110/57 L 98 Room Air Laboratory Results 10/06/23 09:14 10/06/23 09:14 WBC 11.13 H RBC 2.76 L MCV 104.0 H MCH 37.0 H MCHC 35.5 RDW Std Deviation 67.6 H RDW Coeff of Marilyn 18.0 H Plt Count 37 L MPV 9.6 Albumin 2.6 L (2) Alcoholic cirrhosis Ascites presence: with ascites Qualified Code(s): K70.31 - Alcoholic cirrhosis of liver with ascites
--- NOTE | 2023-10-06 17:49 | Hospitalist Progress Note ---
Date of Service October 06, 2023 Assessment & Plan (1) Decompensated hepatic cirrhosis: (2) Alcoholic hepatitis: (3) Thrombocytopenia: (4) Hyponatremia: Plan per previous hospitalist notes with addendum: Mr. Roe is a 37 year old gentleman with history of is a year old gentleman with past medical history remarkable for decompensated (EV, ascites) presented to [facility] ED due to worsening edema and bloating. Patient was recently for similar concerns of 09/27, as well as recent onset jaundice. He was discharged on 09/30 against medical advice. At that time, he was continued on a month long prednisolone taper for acute alcoholic hepatitis. He is being admitted for further evaluation an management of worsening decompensation. #Alcoholic Hepatitis #Cirrhosis 2/2 ETOH, decompensated - History of decompensation: yes - MELD-Na: unable to calculate accurately due to lab error, 33 using Cr from prior admit [place] Discriminate Function: 90.8 -Coagulopathy: INR 2.0, thrombocytopenia 54 - PSE: Denies h/o HE, no evidence of HE on exam, CTM - Ascites: last para in 02/2023 with 700ml return - home Lasix:[place] 40:100; Resume home spironolactone -s/p IV Furosemide 40mg -Repeat Ascites US to assess volume given endorses increase in abdominal bloating/swelling since D/c - SBP: no history of SBP or GIB, continue to monitor, will defer ppx for SBP at this time - EV: No evidence of GIB presently, close monitoring - Will start Protonix PO given ongoing steroid use for PPX - HRS:Unable to assess given inability to obtain Cr. iso elevated TB/lab error - Daily CMP + INR to calculate MELD; low Na diet -Ethanol level pending -Infectious work up ordered iso leukocytosis though on steroid since 09/27 -Resume home prednisolone dosing (EOT ~10/25/2023) JYOTSNA SCORE 0.919 - GI consult 10/05 for paracentesis tomorrow with albumin IV x 2 on Prednisolone on Lasix + Aldactome 10/06 Status post paracentesis today, draining 600 cc Ascitic fluid studies negative for SBP Continue prednisolone Continue Lasix with Aldactone #Hyponatremia -122, around ongoing baseline -continue 1.2L FR, Na restriction 10/05 Na still 122 Nephro consulted 10/06 Sodium 130 Continue with urea Lasix and Aldactone #Leukocytosis iso steroid use #Thrombocytopenia iso liver disease -Infectious workup ordered, however suspect likely related to steroids ongoing for last week -Denies infectious symptoms, but given comorbidities, low threshold for abx should concern arise -Procal -SCDS, trend inr/coags #sinus tachycardia -iso cirrhosis/liver disease, chronic -Will monitor on tele and consider addition of BB iso EV and ongoing tachycardia after stabilization of fluid status #Hypokalemia replaced DVT SCDs iso coagulopathy Diet Low sodium, FR1.5 PCU tele Full Code at this time--"wants to take it, day by day" Disposition Anticipate discharge to home when cleared by GI service Admission and Anticipated Discharge Date Admission Date: October 04, 2023 Subjective Follow-up for decompensated liver cirrhosis, etc. Resting in bed, comfortable, not in distress States he feels okay overall Thinks he is getting dehydrated, requesting to decrease fluid restriction Denies abdominal pain, fevers or chills, shortness of breath No other new symptom Review of Systems Review of Systems: all noted and negative except for above Physical Exam Physical Exam: General- oriented x 3, not in distress, speaks in sentences with no effort or accessory muscle use Eyes-positive icterus Neck- no JVD Lungs- clear breath sounds bilaterally, no rales/wheezes Heart- normal rate, regular rhythm; no murmurs Abdomen- normal bowel sounds, nondistended, soft, nontender Extremities- no pretibial edema, no calf tenderness Neuro- alert, oriented x 3; no gross focal neurologic deficits Skin-positive jaundice, warm & dry Results & Data Results & Data Vital Signs (Past 12 Hours) Vital Signs Temp Pulse Pulse Resp BP Pulse Ox O2 Del Method 10/06/23 15:30 36.7 C 109 H 20 136/75 97 Room Air 10/06/23 13:10 108 H 10/06/23 11:57 37.1 C 69 17 141/71 H 97 Room Air 10/06/23 11:47 36.8 C 103 H 18 120/66 97 Room Air 10/06/23 09:28 96 H 18 122/66 98 Room Air 10/06/23 09:06 36.6 C 105 H 16 129/72 97 Room Air 10/06/23 08:47 105 H 18 132/78 96 Room Air 10/06/23 07:25 36.8 C 109 H 16 106/65 97 Room Air all noted and reviewed including below (2) Alcoholic hepatitis Ascites presence: with ascites Qualified Code(s): K70.11 - Alcoholic hepatitis with ascites
[2023-10-07 06:17] LABS: Basophils # (auto) 0.04 K/uL (0.00-0.20); Basophils % (auto) 0.3 %; Eosinophils # (auto) 0.06 K/uL (0.00-0.50); Eosinophils % (auto) 0.4 %; Hematocrit (blood only) 28.9 % (42.0-52.0); Immature Granulocytes # (auto) 0.61 K/uL (0.01-0.20); Immature Granulocytes % (auto) 4.6 %; Lymphocytes # (auto) 1.17 K/uL (1.20-3.40); Lymphocytes % (auto) 8.7 %; Mean Corpuscular Hemoglobin 36.6 pg (25.0-34.0); Mean Corpuscular Hgb Conc 34.6 g/dL (32.0-36.0); Mean Corpuscular Volume 105.9 fL (80.0-100.0); Mean Platelet Volume 10.2 fL (9.4-12.4); Monocytes # (auto) 1.15 K/uL (0.11-0.59); Monocytes % (auto) 8.6 %; Neutrophils # (auto) 10.36 K/uL (1.40-6.50); Neutrophils % (auto) 77.4 %; Platelet Count 40 K/uL (130-400); RDW Coefficient of Variation 18.3 % (11.5-14.5); RDW Standard Deviation 69.7 fL (36.4-46.3); Red Blood Count 2.73 M/uL (4.70-6.10); White Blood Count 13.39 K/ul (4.8-10.8)
[2023-10-07 06:45] LABS: INR 1.9 (0.9-1.1); Prothrombin Time 20.4 Seconds (9.0-12.0)
[2023-10-07 07:17] LABS: Alanine Aminotransferase 75 U/L (7-52); Albumin Level 2.4 gm/dl (3.4-5.0); Anion Gap 7 (3-11); Aspartate Aminotransferase 89 U/L (13-39); Bilirubin,Total 29.2 mg/dl (0.2-1.0); Calcium 8.4 mg/dl (8.6-10.3); Carbon Dioxide 22 mmol/L (21-32); Chloride 103 mmol/L (98-107); Glucose 74 mg/dl (70-99(Fasting)); Potassium 3.7 mmol/L (3.5-5.1); Sodium 132 mmol/L (136-145); Total Protein 5.3 gm/dl (6.0-8.3)
[2023-10-07 07:20] LABS: Bilirubin Direct 18.7 mg/dl (0-0.2)
[2023-10-07] MEDS: SPIRONOLACTONE 100 MG TAB PO SCH (08:57)
[2023-10-07] MEDS: prednisoLONE sod phosphate 15 MG/5 ML PO SCH (08:57)
[2023-10-07] MEDS: PANTOprazole 40 MG TAB PO SCH (08:57)
[2023-10-07] MEDS: MULTIVITAMIN TAB PO SCH (08:57)
[2023-10-07] MEDS: FOLIC ACID 1 MG TAB PO SCH (08:57)
[2023-10-07] MEDS: THIAMINE HCL 100 MG TAB PO SCH (08:58)
[2023-10-07] MEDS: UREA (UREA-NA) 15 GM PACK PO SCH (08:58)
[2023-10-07] MEDS: FUROSEMIDE 40 MG/4 ML VIAL IV SCH (09:07)
--- NOTE | 2023-10-07 10:44 | Gastroenterology Progress Note ---
Date of Service October 07, 2023 Assessment & Plan (1) Decompensated hepatic cirrhosis: (2) Alcoholic hepatitis: Plan: Pt is a 37 yo male w decompensated cirrhosis, ascites, hx of esophageal varices, admitted with increasing abd distension. MELD unable to be calculated due to Cr unavailable (icterus specimen), [place] DF score >35. - Continue PPI, B1, Folic acid - US paracentesis on 10/06 wo SBP - Trend LFTs - Prednisolone 40mg daily for 1 month then taper foof - Lasix 40mg, Spironolactone 100mg daily - 2g Na diet; 1.5L fluid restriction - Strict ETOh abstinence advised - Avoid NSAIDs, no APAP >2g a day - F/U GI (10/25/2023) & Hepatology (01/30/2024); EGD 12/05/2023. Pls recall GI prn Admission and Anticipated Discharge Date Admission Date: October 04, 2023 Supervising Physician Co-Signing Physician Notes I personally saw and evaluated the patient on 10/07/2023 with DORIS Nickerson and agree with her findings and plan of care. 37 y/o M with history of decompensated alcohol cirrhosis c/b ascites and EV recently admitted with alcohol hepatitis and left AMA who presented with reports of worsening abdominal distention. He reports that he had not drank since February but did drink around 4 oz of wine after (though i suspect he has had much more alcohol than this given his lab abnormalities and he has told multiple people different stories and amounts). He was taking his lasix 40 mg daily and aldactone 100 mg daily at home. He was discharged with prednisolone that he states he did take for the 3 days until he returned.On admission T bili 34, AST 103, ALT 79, ALP 154, INR 2, platelets 42. Na 122. Paracentesis from today without any SBP. On exam he is notably jaundiced with scleral icterus. he has small ascites on exam, 2+ LLE edema and 1+ RLE edema. AAOx3 without asterixis. Continue lasix 40 mg daily and aldactone 100 mg daily. 1.5L fluid restriction. 2 gram sodium restricted diet. Continue prednisolone 40 mg daily for the 30 day course. PETH test sent on admission as I suspect he is drinking much more than he reports. He needs alcohol counseling and to remain abstinent completely from all alcohol moving forward. Daily MELD labs. He is not a transplant candidate at this time given active alcohol abuse and he has been non-compliant missing all follow up hepatology appointments in the outpatient setting. Ok to discharge home today from hepatology standpoint. He will need a script for 3 more weeks of prednisolone. Labs in 1 weeks (CBC, hepatic function panel, BMP, INR). Follow up with hepatology within 2 weeks of discharge which we will arrange. GI will sign off. Please call back with questions. Isabelle De Guzman, DO Gastroenterology and Hepatology Subjective Pt feels "great", wants to go home today. Denies CP, SOB, abd pain, n/v. Had BM wo black tarry stools or rectal bleeding. Feels leg swelling is improved Review of Systems Review of Systems: All systems reviewed & are unremarkable except as noted in HPI & below Physical Exam Constitutional: WD/WN, vitals as above well groomed, cooperative and comfortable Eyes: PERRL, conjunctivae normal, anicteric sclerae (icteric sclera) ENMT: external ear and nose normal, oropharynx normal Respiratory: normal respiratory effort, lungs clear to auscultation Cardiovascular: RRR, no murmur, no edema Gastrointestinal (Abdomen): normal bowel sounds, soft, nontender, no hepatosplenomegaly Skin: no rashes, warm and dry + jaundice Neurologic: Motor/Sensory: no asterixis Psychiatric: A+Ox3, euthymic affect Lymphatic: no lymphedema Results & Data Vital Signs (Past 12 Hours) Vital Signs Temp Pulse Pulse Resp BP Pulse Ox O2 Del Method 10/07/23 09:38 106 H 10/07/23 09:00 Room Air 10/07/23 07:52 104 H 18 120/75 98 Room Air 10/07/23 03:25 36.6 C 109 H 18 113/75 97 Room Air 10/06/23 23:24 95 H (2) Alcoholic hepatitis Ascites presence: with ascites Qualified Code(s): K70.11 - Alcoholic hepatitis with ascites
--- NOTE | 2023-10-07 12:30 | Nephrology Progress Note ---
Date of Service October 07, 2023 Assessment & Plan (1) Hyponatremia: Plan: Patient with hyponatremia due to decompensated cirrhosis. Sodium is 132 today. He endorsed high-volume of water intake. He is trying to cut down. He also reports quitting alcohol. -Patient can be discharged today on urea 15 g daily. Patient has already ordered outpatient supply of urea. -Continue fluid restriction of 1.5 L daily even at home. Please emphasize this. Also emphasized the need to completely avoid alcohol. -He will need to repeat a BMP in a week. -Renal follow-up in 1 to 2 weeks (2) Alcoholic cirrhosis: Plan: Patient with decompensated cirrhosis. Will continue Lasix 40 and Aldactone 100 mg daily Admission and Anticipated Discharge Date Admission Date: October 04, 2023 Subjective Seen in follow-up for hyponatremia and decompensated cirrhosis. He feels better today. No shortness of breath. Review of Systems 2 Review of Systems: All other systems were reviewed and negative except as noted in HPI Physical Exam 2 Physical Exam: General exam: Appears comfortable, no acute distress HEENT: Pupils are equal and reactive to light Neck: No JVD, neck is supple trachea is midline Respiratory system: Clear breath sounds bilaterally. Gastrointestinal: Abdomen is soft, non distended, non tender, bowel sounds are present CVS: Regular rate and rhythm. No murmurs, rubs or gallops Musculoskeletal: No joint or muscle tenderness Extremities: Non tender, no edema, peripheral pulses are present Neuro: Oriented, no tremors, no focal neurological deficits Skin: No rashes, deep jaundice Results & Data Vital Signs (Past 12 Hours) Vital Signs Temp Pulse Pulse Resp BP Pulse Ox O2 Del Method 10/07/23 12:14 36.7 C 76 18 125/70 96 Room Air 10/07/23 09:38 106 H 10/07/23 09:00 Room Air 10/07/23 07:52 104 H 18 120/75 98 Room Air 10/07/23 03:25 36.6 C 109 H 18 113/75 97 Room Air Laboratory Results 10/07/23 05:28 10/07/23 05:28 WBC 13.39 H RBC 2.73 L MCV 105.9 H MCH 36.6 H MCHC 34.6 RDW Std Deviation 69.7 H RDW Coeff of Marilyn 18.3 H Plt Count 40 L MPV 10.2 Albumin 2.4 L (2) Alcoholic cirrhosis Ascites presence: with ascites Qualified Code(s): K70.31 - Alcoholic cirrhosis of liver with ascites
--- NOTE | 2023-10-07 12:52 | Hospitalist Progress Note ---
Date of Service October 07, 2023 Assessment & Plan (1) Decompensated hepatic cirrhosis: (2) Alcoholic hepatitis: (3) Thrombocytopenia: (4) Hyponatremia: Plan per previous hospitalist notes with addendum: Mr. Roe is a 37 year old gentleman with history of is a year old gentleman with past medical history remarkable for decompensated (EV, ascites) presented to [facility] ED due to worsening edema and bloating. Patient was recently for similar concerns of 09/27, as well as recent onset jaundice. He was discharged on 09/30 against medical advice. At that time, he was continued on a month long prednisolone taper for acute alcoholic hepatitis. He is being admitted for further evaluation an management of worsening decompensation. #Alcoholic Hepatitis #Cirrhosis 2/2 ETOH, decompensated - History of decompensation: yes - MELD-Na: unable to calculate accurately due to lab error, 33 using Cr from prior admit [place] Discriminate Function: 90.8 -Coagulopathy: INR 2.0, thrombocytopenia 54 - PSE: Denies h/o HE, no evidence of HE on exam, CTM - Ascites: last para in 02/2023 with 700ml return - home Lasix:[place] 40:100; Resume home spironolactone -s/p IV Furosemide 40mg -Repeat Ascites US to assess volume given endorses increase in abdominal bloating/swelling since D/c - SBP: no history of SBP or GIB, continue to monitor, will defer ppx for SBP at this time - EV: No evidence of GIB presently, close monitoring - Will start Protonix PO given ongoing steroid use for PPX - HRS:Unable to assess given inability to obtain Cr. iso elevated TB/lab error - Daily CMP + INR to calculate MELD; low Na diet -Ethanol level pending -Infectious work up ordered iso leukocytosis though on steroid since 09/27 -Resume home prednisolone dosing (EOT ~10/25/2023) JYOTSNA SCORE 0.919 - GI consult 10/05 for paracentesis tomorrow with albumin IV x 2 on Prednisolone on Lasix + Aldactome 10/06 Status post paracentesis today, draining 600 cc Ascitic fluid studies negative for SBP Continue prednisolone Continue Lasix with Aldactone 10/07 Clinically improved Cleared by GI for discharge today Continue prednisolone till November 08 per GI Continue Lasix 40 mg daily, and 100 mg daily #Hyponatremia -122, around ongoing baseline -continue 1.2L FR, Na restriction 10/05 Na still 122 Nephro consulted 10/06 Sodium 130 Continue with urea Lasix and Aldactone 10/07 Sodium 132 Continue urea 15 milligrams twice daily Repeat BMP and follow-up with primary care physician next #Leukocytosis iso steroid use #Thrombocytopenia iso liver disease -Infectious workup ordered, however suspect likely related to steroids ongoing for last week -Denies infectious symptoms, but given comorbidities, low threshold for abx should concern arise -Procal -SCDS, trend inr/coags #sinus tachycardia -iso cirrhosis/liver disease, chronic -Will monitor on tele and consider addition of BB iso EV and ongoing tachycardia after stabilization of fluid status #Hypokalemia replaced DVT SCDs iso coagulopathy Diet Low sodium, FR1.5 PCU tele Full Code at this time--"wants to take it, day by day" Disposition Discharge to home Admission and Anticipated Discharge Date Admission Date: October 04, 2023 Subjective Follow-up for acutely decompensated liver cirrhosis, etc. Seen resting in bed, comfortable, not in distress States he feels better overall Denies abdominal pain, shortness of breath No fevers or chills, nausea vomiting Ambulating with no problems States he would like to go home today Review of Systems Review of Systems: all noted and negative except for above Physical Exam Physical Exam: General- oriented x 3, not in distress, speaks in sentences with no effort or accessory muscle use Eyes-positive icterus Neck- no JVD Lungs- clear breath sounds bilaterally, no rales/wheezes Heart- normal rate, regular rhythm; no murmurs Abdomen- normal bowel sounds, nondistended, soft, nontender Extremities- no pretibial edema, no calf tenderness Neuro- alert, oriented x 3; no gross focal neurologic deficits Skin-positive jaundice; warm & dry Results & Data Results & Data Vital Signs (Past 12 Hours) Vital Signs Temp Pulse Pulse Resp BP Pulse Ox O2 Del Method 10/07/23 12:14 36.7 C 76 18 125/70 96 Room Air 10/07/23 09:38 106 H 10/07/23 09:00 Room Air 10/07/23 07:52 104 H 18 120/75 98 Room Air 10/07/23 03:25 36.6 C 109 H 18 113/75 97 Room Air all noted and reviewed including below (2) Alcoholic hepatitis Ascites presence: with ascites Qualified Code(s): K70.11 - Alcoholic hepatitis with ascites
--- NOTE | 2023-10-07 18:48 | Discharge Summary ---
Discharge Summary Date of Service October 07, 2023 Notes For Next Care Provider Medication Changes From Visit Lasix 40 mg p.o. daily Spironolactone 100 mg p.o. daily Prednisolone 40 mg daily till follow-up with GI in 2 weeks Urea 15 g p.o. twice daily Admission HPI Per Admitting Provider Mr. Roe is a 37 year old gentleman with history of is a year old gentleman with past medical history remarkable for decompensated (EV, ascites) presented to [facility] due to worsening edema and bloating. Patient was recently for similar concerns of 09/27, as well as recent onset jaundice. He was discharged on 09/30 against medical advice. At that time, he was continued on a month long prednisolone taper for acute alcoholic hepatitis. Patient states since returning home, he has noted increased abdominal bloating and discomfort, more distention and slight swelling of lower extremities. Patient denies platypnea or orthopnea. Patient states that the yellowing of his skin has been stable. He denies nausea, vomiting, hematochezia, melena. He denies any alcohol intake since "around time." He states that he is compliant with his medications. He denies fevers, chill or other constitutional symptoms. In the ED, vitals were notable for BP in 100s, HR of 100-110s, and O2 sat of high 90s on room air. Imaging revealed left pleural effusion, bibasilar atelectasis EKG sinus tachy Labs with leukocytosis iso ongoing steroid use, stable hgb, ammonia wnl, unable to calculate MELD 2/2 bili level (at least 33 based upon recent Cr. that was able to be obtained from prior) ED interventions: none Consultants: Gi consulted during admission process Patient to be admitted to PCU/Tele. for further evaluation and management of decompensated cirrhosis. Admission Exam Per Admitting Provider GENERAL APPEARANCE: AxOx4, flat affect, laying on side HEENT: NC, AT. MMM. EOMI,icterus oropharynx clear. NECK: Supple without lymphadenopathy. No stiffness or restricted ROM. HEART: tachycardic LUNGS: CTAB, moving air well. No crackles or wheezes are heard. ABDOMEN: Soft,distended, fluid wave, no guarding, peritonitis BACK: No CVAT, no obvious deformity. EXTREMITIES: 1+ BLE edema NEUROLOGICAL: Grossly nonfocal. Alert and oriented, moving all 4 extremities. CN not formally tested but appear grossly intact. Skin: extensive jaundice Principal Dx & Hospital Course #1 = Principal Diagnosis (1) Decompensated hepatic cirrhosis: (2) Alcoholic hepatitis: (3) Thrombocytopenia: (4) Hyponatremia: Plan per previous hospitalist notes with addendum: Mr. Roe is a 37 year old gentleman with history of is a year old gentleman with past medical history remarkable for decompensated (EV, ascites) presented to [facility] due to worsening edema and bloating. Patient was recently for similar concerns of 09/27, as well as recent onset jaundice. He was discharged on 09/30 against medical advice. At that time, he was continued on a month long prednisolone taper for acute alcoholic hepatitis. He is being admitted for further evaluation an management of worsening decompensation. #Alcoholic Hepatitis #Cirrhosis 2/2 ETOH, decompensated - History of decompensation: yes - MELD-Na: unable to calculate accurately due to lab error, 33 using Cr from prior admit Tremaineshruthi Discriminate Function: 90.8 -Coagulopathy: INR 2.0, thrombocytopenia 54 - PSE: Denies h/o HE, no evidence of HE on exam, CTM - Ascites: last para in 02/2023 with 700ml return - home Lasix:Flo 40:100; Resume home spironolactone -s/p IV Furosemide 40mg -Repeat Ascites US to assess volume given endorses increase in abdominal bloating/swelling since D/c - SBP: no history of SBP or GIB, continue to monitor, will defer ppx for SBP at this time - EV: No evidence of GIB presently, close monitoring - Will start Protonix PO given ongoing steroid use for PPX - HRS:Unable to assess given inability to obtain Cr. iso elevated TB/lab error - Daily CMP + INR to calculate MELD; low Na diet -Ethanol level pending -Infectious work up ordered iso leukocytosis though on steroid since 09/27 -Resume home prednisolone dosing (EOT ~10/25/2023) JYOTSNA SCORE 0.919 - GI consult 10/05 for paracentesis tomorrow with albumin IV x 2 on Prednisolone on Lasix + Aldactome 10/06 Status post paracentesis today, draining 600 cc Ascitic fluid studies negative for SBP Continue prednisolone Continue Lasix with Aldactone 10/07 Clinically improved Cleared by GI for discharge today Continue prednisolone till November 08 per GI Continue Lasix 40 mg daily, and 100 mg daily #Hyponatremia -122, around ongoing baseline -continue 1.2L FR, Na restriction 10/05 Na still 122 Nephro consulted 10/06 Sodium 130 Continue with urea Lasix and Aldactone 10/07 Sodium 132 Continue urea 15 grams twice daily Repeat BMP and follow-up with primary care physician next #Leukocytosis iso steroid use #Thrombocytopenia iso liver disease -Infectious workup ordered, however suspect likely related to steroids ongoing for last week -Denies infectious symptoms, but given comorbidities, low threshold for abx should concern arise -Procal -SCDS, trend inr/coags #sinus tachycardia -iso cirrhosis/liver disease, chronic -Will monitor on tele and consider addition of BB iso EV and ongoing tachycardia after stabilization of fluid status #Hypokalemia replaced DVT SCDs iso coagulopathy Diet Low sodium, FR1.5 PCU tele Full Code at this time--"wants to take it, day by day" Disposition Discharge to home Updated Medication List Medication Instructions Recorded Confirmed Type folic acid 1 mg tablet 1 mg PO QAM #30 tabs 02/17/23 10/04/23 Rx furosemide 40 mg tablet 40 mg PO QAM #30 tabs 02/17/23 10/04/23 Rx multivitamin with folic acid 400 1 tab PO QAM #30 tabs 02/17/23 10/04/23 Rx mcg tablet (Daily-Paul (with folic acid)) spironolactone 100 mg tablet 100 mg PO QAM #30 tabs 02/17/23 10/04/23 Rx prednisolone sodium phosphate 15 40 mg (13.3333 mL) PO DAILY 30 09/29/23 10/04/23 Rx mg/5 mL (3 mg/mL) oral solution days #399.999 mL thiamine HCl (vitamin B1) 100 mg 100 mg PO QAM 10/04/23 10/04/23 History tablet pantoprazole 40 mg tablet,delayed 40 mg PO DAILY 30 days #30 tabs 10/07/23 Rx release potassium chloride 20 mEq 20 meq PO BID 30 days #60 tabs 10/07/23 Rx tablet,extended release(part/cryst) urea 15 gram oral powder packet 15 g PO BID 30 days #30 ea 10/07/23 Rx (Ure-Na) Hospital Stay Data Consultations 10/04/23 13:32 ED Decision to Admit Stat 10/04/23 15:22 Consult Gastroenterology Routine 10/05/23 08:27 Consult Nephrology Routine Diagnostic Imagining Performed Laboratory Results WBC 13.39 K/ul (4.8-10.8) H 10/07/23 05:28 RBC 2.73 M/uL (4.70-6.10) L 10/07/23 05:28 Hgb 10.0 g/dl (14.0-18.0) L 10/07/23 05:28 Hct 28.9 % (42.0-52.0) L 10/07/23 05:28 MCV 105.9 fL (80.0-100.0) H 10/07/23 05:28 MCH 36.6 pg (25.0-34.0) H 10/07/23 05:28 MCHC 34.6 g/dL (32.0-36.0) 10/07/23 05:28 RDW Std Deviation 69.7 fL (36.4-46.3) H 10/07/23 05:28 RDW Coeff of Marilyn 18.3 % (11.5-14.5) H 10/07/23 05:28 Plt Count 40 K/uL (130-400) L 10/07/23 05:28 MPV 10.2 fL (9.4-12.4) 10/07/23 05:28 Immature Gran % (Auto) 4.6 % 10/07/23 05:28 Neut % (Auto) 77.4 % 10/07/23 05:28 Lymph % (Auto) 8.7 % 10/07/23 05:28 [place] % (Auto) 8.6 % 10/07/23 05:28 Eos % (Auto) 0.4 % 10/07/23 05:28 Baso % (Auto) 0.3 % 10/07/23 05:28 Neut # (Auto) 10.36 K/uL (1.40-6.50) H 10/07/23 05:28 Lymph # (Auto) 1.17 K/uL (1.20-3.40) L 10/07/23 05:28 [place] # (Auto) 1.15 K/uL (0.11-0.59) H 10/07/23 05:28 Eos # (Auto) 0.06 K/uL (0.00-0.50) 10/07/23 05:28 Baso # (Auto) 0.04 K/uL (0.00-0.20) 10/07/23 05:28 Immature Gran # (Auto) 0.61 K/uL (0.01-0.20) H 10/07/23 05:28 Toxic Granulation 1+ 10/04/23 11:01 Polychromasia 1+ 10/06/23 09:14 Echinocytes 2+ 10/06/23 09:14 PT 20.4 Seconds (9.0-12.0) H 10/07/23 05:28 INR 1.9 (0.9-1.1) H 10/07/23 05:28 Sodium 132 mmol/L (136-145) L 10/07/23 05:28 Potassium 3.7 mmol/L (3.5-5.1) 10/07/23 05:28 Chloride 103 mmol/L (98-107) 10/07/23 05:28 Carbon Dioxide 22 mmol/L (21-32) 10/07/23 05:28 Anion Gap 7 (3-11) 10/07/23 05:28 BUN TNP 10/07/23 05:28 Creatinine TNP 10/07/23 05:28 Est Cr Clr Drug Dosing Not Reportable 10/07/23 05:28 Est GFR ( Amer) Not Reportable 10/07/23 05:28 Est GFR (Non-Af Amer) Not Reportable 10/07/23 05:28 BUN/Creatinine Ratio TNP 10/07/23 05:28 Glucose 74 mg/dl (70-99(Fasting)) 10/07/23 05:28 Calcium 8.4 mg/dl (8.6-10.3) L 10/07/23 05:28 Phosphorus 2.9 mg/dl (2.5-4.9) 10/05/23 05:41 Magnesium 2.0 mg/dl (1.7-2.4) 10/05/23 05:41 Total Bilirubin 29.2 mg/dl (0.2-1.0) H 10/07/23 05:28 Direct Bilirubin 18.7 mg/dl (0-0.2) H 10/07/23 05:28 AST 89 U/L (13-39) H 10/07/23 05:28 ALT 75 U/L (7-52) H 10/07/23 05:28 Alkaline Phosphatase TNP 10/07/23 05:28 Ammonia 41.0 umol/L (18-72) 10/04/23 11:01 Troponin I High Sens 13.7 pg/ml (0-20) 10/04/23 11:01 B-Natriuretic Peptide 57 pg/ml (0-100) 10/04/23 11:01 Total Protein 5.3 gm/dl (6.0-8.3) L 10/07/23 05:28 Albumin 2.4 gm/dl (3.4-5.0) L 10/07/23 05:28 Globulin 3.3 gm/dl (2.5-4.0) 10/05/23 05:41 Albumin/Globulin Ratio 0.6 (0.9-2) L 10/05/23 05:41 Lipase TNP 10/04/23 11:01 Procalcitonin 0.62 ng/ml (0-0.5) H 10/04/23 17:18 Urine Color [place] 10/04/23 11:01 Urine Appearance Clear (Clear) 10/04/23 11:01 Urine pH (4.5-7.5) 10/04/23 11:01 Ur Specific [place] 1.007 (1.000-1.030) 10/04/23 11:01 Urine Protein (Negative) 10/04/23 11:01 Urine Glucose (UA) (Negative) 10/04/23 11:01 Urine Ketones (Negative) 10/04/23 11:01 Urine Blood (Negative) 10/04/23 11:01 Urine Nitrite (Negative) 10/04/23 11:01 Urine Bilirubin (Negative) 10/04/23 11:01 Urine Urobilinogen (Negative) 10/04/23 11:01 Ur Leukocyte Esterase (Negative) 10/04/23 11:01 Urine RBC 5-10 /hpf (0-4) H 10/04/23 11:01 Urine WBC 5-10 /hpf (0-5) H 10/04/23 11:01 Ur Epithelial Cells 10-20 /lpf (0-5) H 10/04/23 11:01 Urine Bacteria 1+ (Negative) H 10/04/23 11:01 Granular Casts 1-5 /lpf (0) H 10/04/23 11:01 Fluid Neutrophils % 27 % 10/06/23 08:36 Fluid Lymphocytes % 49 % 10/06/23 08:36 Fluid Meso/Macro/[place] % 24 % 10/06/23 08:36 Fluid Comment 10/06/23 08:36 Peritoneal Color Yellow 10/06/23 08:36 Peritoneal Appearance Clear 10/06/23 08:36 Peritoneal WBC (Auto) 112 /ul (0-300) 10/06/23 08:36 Peritoneal RBC (Auto) < 2000 /uL 10/06/23 08:36 Peritoneal Tot Protein < 3.0 gm/dl 10/06/23 08:36 Peritoneal Albumin < 1.5 gm/dl 10/06/23 08:36 Ethyl Alcohol mg/dL < 10.0 mg/dl (<10.0) 10/04/23 15:01 Miscellaneous Test REPORT 10/06/23 10:53 Miscellaneous Test 2 REPORT 10/06/23 09:25 Impressions Chest X-Ray 10/04/23 10:54 XR chest 1V portable CLINICAL HISTORY: Shortness of breath. COMPARISON STUDY: Chest CT September 29, 2017. Chest radiograph February 13, 2023 FINDINGS: There is no pneumothorax. A small left pleural effusion is present. Bibasilar opacities favor atelectasis. There is no consolidation to suggest pneumonia. Cardiomediastinal silhouette is unchanged. There is no evidence for pulmonary edema. IMPRESSION: 1. Small left pleural effusion. 2. Bibasilar opacities suggestive of atelectasis. ACT 112: Negative or not required by law. Electronically signed by: Josue Peña M.D. 10/04/2023 11:09 AM Abdomen Ultrasound 10/04/23 13:53 ULTRASOUND TO ASSESS FOR ASCITES CLINICAL HISTORY: ascites increased girth since last admit COMPARISON STUDY: CT of the abdomen and pelvis February 13, 2023. Ascites ultrasound September 27, 2023. TECHNIQUE: Sonography of the 4 quadrants was performed to assess for ascites. FINDINGS: The liver is cirrhotic. Small to moderate ascites has increased since ultrasound of September 27, 2023. Splenomegaly is again noted as well as a small left pleural effusion. IMPRESSION: Small to moderate ascites, mildly increased since prior ultrasound. ACT 112: Negative or not required by law. Electronically signed by: Josue Peña M.D. 10/04/2023 3:02 PM Paracentesis Ultrasound 10/06/23 08:00 Ultrasound-guided paracentesis INDICATION: Ascites PROCEDURE: Procedure and risks were explained. Informed consent was obtained. A final timeout was completed. The abdomen was prepped and draped in sterile fashion. 1% buffered lidocaine was utilized for skin anesthesia. Utilizing ultrasound guidance, a 5 Maltese safety centesis catheter was advanced into the left lower quadrant pocket of ascites. Ultrasound images were obtained. 600 mL of clear yellow ascites fluid was removed and sent to the lab for analysis. The catheter was removed and Band-Aid applied. The patient tolerated the procedure well. Vital signs will be monitored postprocedure. IMPRESSION: Paracentesis as above. Performed, dictated, and signed by Natan Steward PA-C; to be co-signed by Alejandro Peña. Electronically signed by: Josue Peña M.D. 10/06/2023 12:20 PM 10/04/23 13:53 US abdomen ltd ascites Stat 10/06/23 08:00 IR paracentesis abd w/img US Routine Pending Results Patient Have Any Pending Studies at Discharge: Yes Discharge Instructions Given to Patient (Per Discharging Provider) PLEASE REFER TO YOUR NEW MEDICATION LIST AND FOLLOW INSTRUCTIONS CAREFULLY. YOUR NEW MEDICATIONS INCLUDE: Urea-to prevent a low sodium level Continue taking prednisolone 40 mg daily until further advised by the director phone on your follow-up appointment. Do not stop taking prednisolone until advised by the director phone. Continue Lasix 40 mg daily and spironolactone 100 mg daily. Continue fluid restriction of 1.5 L/day. PLEASE CALL YOUR PRIMARY CARE PHYSICIAN OR RETURN TO THE ER IF WITH WORSENING OF SYMPTOMS, INCLUDING Abdominal distention, fevers or chills, weakness, nausea or vomiting, etc. FOLLOW UP WITH PRIMARY CARE PHYSICIAN OUTLINED ABOVE. FOLLOW-UP WITH [facility]STRO[facility]OLOGY [facility]IN[facility] OUTLINED ABOVE. FOLLOW-UP WITH [facility] OR [employer]NAGER DR. LEE IN 2 WEEKS. PLEASE CALL HIS OFFICE FOR AN APPOINTMENT. CONTACT INFORMATION OUTLINED ABOVE. Total Time Total Time Spent Total Time Spent (In Minutes): >30 minutes
== END 2023-10-07 15:13 | disposition home or self-care (01) | DRG 433 ==
LOC: ED 10:22 → EDINP 13:52 → SUATTDRO 13:52 → 2E 21:00

== ENCOUNTER 2023-11-01 10:54 | Inpatient (IN) ==
[2023-11-01 11:44] LABS: Basophils # (auto) 0.02 K/uL (0.00-0.20); Basophils % (auto) 0.2 %; Eosinophils # (auto) 0.22 K/uL (0.00-0.50); Eosinophils % (auto) 1.9 %; Hematocrit (blood only) 26.4 % (42.0-52.0); Hemoglobin 8.7 g/dl (14.0-18.0); Immature Granulocytes # (auto) 0.31 K/uL (0.01-0.20); Immature Granulocytes % (auto) 2.7 %; Lymphocytes # (auto) 0.88 K/uL (1.20-3.40); Lymphocytes % (auto) 7.5 %; Mean Corpuscular Hemoglobin 36.6 pg (25.0-34.0); Mean Corpuscular Volume 110.9 fL (80.0-100.0); Mean Platelet Volume 10.8 fL (9.4-12.4); Monocytes # (auto) 1.24 K/uL (0.11-0.59); Monocytes % (auto) 10.6 %; Neutrophils # (auto) 8.99 K/uL (1.40-6.50); Neutrophils % (auto) 77.1 %; Platelet Count 92 K/uL (130-400); RDW Coefficient of Variation 16.1 % (11.5-14.5); RDW Standard Deviation 66.2 fL (36.4-46.3); Red Blood Count 2.38 M/uL (4.70-6.10); White Blood Count 11.66 K/ul (4.8-10.8)
--- NOTE | 2023-11-01 11:57 | XRay Report ---
XR chest 1V portable CLINICAL HISTORY: weakness TECHNIQUE: Single frontal radiograph of the chest was obtained. Comparison: Comparison is made to chest radiograph 10/04/2023 FINDINGS: Exam is limited by underpenetration. Cardiomegaly is noted. Lungs are underinflated but clear. No sharmaine dence of pleural effusion or pneumothorax. IMPRESSION: Bibasilar airspace opacities again seen, most suggestive of atelectasis. ACT 112: Negative or not required by law. Electronically signed by: Vince Garcia M.D. 11/01/2023 11:56 AM
[2023-11-01 12:01] LABS: Basophilic Stippling 1+; Echinocytes 2+; INR 4.3 (0.9-1.1); Macrocytosis Present; Polychromasia 2+; Prothrombin Time 43.3 Seconds (9.0-12.0)
[2023-11-01 12:03] LABS: iSTAT Creatinine 4.9 mg/dl (0.6-1.3); iSTAT Hemoglobin 10.2 g/dl (14.0-18.0); iSTAT Ionized Calcium 1.18 mmol/l (1.12-1.32); iSTAT Potassium 4.8 mmol/L (3.3-5.0)
[2023-11-01 12:09] LABS: Partial Thromboplastin Time 85 Seconds (21-31)
[2023-11-01 12:13] LABS: Bilirubin,Total 48.9 mg/dl (0.2-1.0)
[2023-11-01 12:23] LABS: Troponin I High Sensitivity 12.3 pg/ml (0-20)
--- NOTE | 2023-11-01 12:28 | Electrocardiogram Report ---
Test Reason : Blood Pressure : / mmHG Vent. Rate : 093 BPM Atrial Rate : 093 BPM P-R Int : 140 ms QRS Dur : 082 ms QT Int : 378 ms P-R-T Axes : 053 029 036 degrees QTc Int : 469 ms Normal sinus rhythm Normal ECG When compared with ECG of 04-OCT-2023 14:08, No significant change was found Confirmed by Raad Bautista ([id number] on 11/01/2023 12:26:01 PM Referred By: Confirmed By:Luis Manuel Bautista
[2023-11-01 12:34] LABS: Thyroid Stimulating Hormone 7.105 uIu/ml (0.300-4.500)
[2023-11-01 12:36] LABS: Adenovirus PCR Not Detected (NotDetected); Bordetella parapertussis PCR Not Detected (NotDetected); Bordetella pertussis PCR Not Detected (NotDetected); Chlamydia pneumoniae PCR Not Detected (NotDetected); Coronavirus 229E PCR Not Detected (NotDetected); Coronavirus CoV-2 (COVID19)PCR Not Detected (NotDetected); Coronavirus HKU1 PCR Not Detected (NotDetected); Coronavirus NL63 PCR Not Detected (NotDetected); Coronavirus OC43PCR Not Detected (NotDetected); Human Metapneumovirus PCR Not Detected (NotDetected); Influenza A PCR Not Detected (NotDetected); Influenza B PCR Not Detected (NotDetected); Mycoplasma pneumoniae PCR Not Detected (NotDetected); Parainfluenza Virus 1 PCR Not Detected (NotDetected); Parainfluenza Virus 2 PCR Not Detected (NotDetected); Parainfluenza Virus 3 PCR Not Detected (NotDetected); Parainfluenza Virus 4 PCR Not Detected (NotDetected); Respiratory Syncytial VirusPCR Not Detected (NotDetected); Rhinovirus/Enterovirus PCR Not Detected (NotDetected)
--- NOTE | 2023-11-01 12:38 | Emergency Department Note ---
Impression & Plan Decompensated HCV cirrhosis, FELI (acute kidney injury), Elevated bilirubin ED Provider Note Provider: Minesh Madera MD DATE OF SERVICE: 11/01/2023 CHIEF COMPLAINT: Worsening outpatient lab HISTORY OF PRESENT ILLNESS: Patient is a 38-year-old gentleman past medical history of decompensated alcoholic hepatitis and cirrhosis referred today due to worsening outpatient blood work. Patient states was hospitalized here over the holidays and then the first week or 2 October at [facility] after syncopal episode. Patient states last week or so has been doing fairly well. States he has been drinking okay and walking fairly well. After prolonged walk does get a little short of breath. Denies new swelling. Denies abdominal pain. Maybe a hour or 2 of fever over the weekend on Tuesday but none since. Denies significant worsening of any shortness of breath. Denies significant nausea or vomiting. States jaundice seems to be doing better than previously. Told his kidney function is worse and thus came here for evaluation. No use of alcohol, Tylenol, or Motrin reported. Denies confusion or worsening fatigue. PAST MEDICAL HISTORY: As noted above MEDICATIONS: Reviewed home medications SOCIAL HISTORY: Denies recent alcohol use PHYSICAL EXAM: GENERAL: alert and oriented in no acute distress on stretcher frankly jaundiced. Head: normocephalic and atraumatic EYES: Bilateral icteric noted. NECK: Trachea midline. Supple. ENT: Mucous membranes pink and moist LUNGS: Airway patent. No retractions. Breath sounds clear HEART: Regular rate and rhythm. No chest wall tenderness ABDOMEN: Soft and non-tender moderately distended, without guarding or rebound. SKIN: Jaundice, warm, dry, without rashes EXTREMITIES: No significant tenderness or deformity lower extremities with 1+ bilateral lower extremity edema NEUROLOGICAL: No focal deficits. No aphasia. No facial droop or slurred speech. Ambulatory. EK bpm normal sinus rhythm. No PVC or PAC. No acute ST segment elevation or depression with QTc of 469. CONTINUOUS CARDIAC MONITORING: was ordered and showed a heart rate of 80s to 90s bpm in normal sinus rhythm Patient's laboratory studies and imaging reviewed. Differential includes Infection, dehydration, metabolic abnormality, hypo/hyperglycemia, electrolyte disturbance, anemia, hypoxia, cardiac sources, intracerebral event, toxicologic, neurologic, as well as other pathologies. IMPRESSION/MEDICAL DECISION MAKING: Patient reportedly over the kidney function outpatient blood work referred by Vincent HUNT who he follows with. Basic lab work was sent here. Patient himself states he does not feel all that bad. Denies any significant pain. Maybe an hour or 2 of fever over the weekend but none since. Chest x-ray obtained is without significant change with some bibasilar likely atelectasis. Some difficulty due to icteric with labs but [id number] labs show a sodium of 125, potassium 4.8, chloride of 95, bicarb of 19, glucose of 82, BUN of 46, creatinine 4.9. Formal laboratory studies show white blood cell count of 1.6 which is slightly improved previous. Hemoglobin 8.7 appears slightly lower than previous around 10. Platelet count of 92 is actually slightly improved. INR more elevated today at 4.3. Patient does not endorse any bleeding. Lactate minimally elevated 2.6. Benign abdomen without tenderness. No history of SBP reported. Procalcitonin is elevated 2.98. TSH is 7.1 is noted. Total bilirubin today of 48.9 much higher than previous. Negative respiratory viral panel. Patient is afebrile here today. Reach out discussed with Vincent HUNT here given his decompensated liver function and a MELD score of 51. Discussion with Vincent HUNT here, will attempt medical treatment. Does not appear significantly decompensated blood pressure improving on reassessment. Respiratory viral panel negative. Urinalysis with nitrates but does not appear impressive for infection. Will be sent for culture. Will give some albumin to try to help his intravascular volume. Given the procalcitonin with some elevation of the do not see a clear source will empirically cover with a dose of ceftriaxone. Blood cultures have been sent. Again lower suspicion for SBP as he does not have any significant abdominal pain or tenderness and is afebrile here. Patient was agreeable to stay for further care. Later called back by [facility] gastroenterology PRACHI who states after further discussion given his significant decompensation they recommended I discussed with [facility] for possible transfer as the patient may need possible transplant given his worsening. Patient was initially hesitant for this but gastroenterology PRACHI was able to talk to them on the phone. Reached out to [facility] to discuss the case. Discussed with hepatology at [facility] and later [facility]. He has been accepted at both facilities for further end-stage liver care, however patient is awaiting an open bed and has been reported that there will be at least a 24-hour wait. Will have medicine bring in the meantime. [facility] did recommend that we hold his diuretics, start every 8 hour albumin infusions, and did report that he was recently bacteremic with MSSA there. DIAGNOSIS: Decompensated cirrhosis, elevated bilirubin, FELI DISPOSITION: Hospitalist will evaluate Patient was agreeable with this plan. Past Med/Surg History Medical History Thrombocytopenia Alcohol use disorder Alcoholic hepatitis Ascites Esophageal varices History of deep venous thrombosis Liver cirrhosis SBP (spontaneous bacterial peritonitis) Surgical History No significant past surgical history Family History Grandmother (Maternal) Colorectal cancer Mother Stroke Social History Smoking Status: Former smoker Tobacco Type: E-cigarettes / Vaping Second Hand Exposure: No; Do You Dip or Chew Tobacco: No; Hx Alcohol Use: Yes Alcohol type: wine Hx Substance Use: No Preferred Language: Kiswahili Communication Ability: Effective Communication Ability Comment: verbal Anthropology Faculty Member Required: No Beliefs That Will Affect Care: None Current Living Situation: Family Current Living Situation Comment: with two teenage daughters Feels Safe at Home: Yes Assistive Devices: None Allergies Allergies Allergy/AdvReac Type Severity Reaction Status Date / Time acetaminophen Allergy Intermediate ELEVATED Verified 02/13/23 19:30 FEVER amoxicillin Allergy Intermediate UNKNOWN Verified 02/13/23 19:30 Penicillins Allergy Intermediate UNKNOWN Verified 02/13/23 19:30 acetylcysteine AdvReac Difficulty Verified 09/27/23 19:30 Breathing Home Meds Home Medications Medication Instructions Recorded Confirmed thiamine HCl (vitamin B1) 100 mg 100 mg PO QAM 10/04/23 11/01/23 tablet lactulose 10 gram/15 mL oral 45 ml PO Q12H 11/01/23 11/01/23 solution (Constulose) midodrine 5 mg tablet 10 mg PO TID 11/01/23 11/01/23 multivitamin with folic acid 400 0 tab PO QAM 11/01/23 11/01/23 mcg tablet (Daily-Paul (with folic acid)) prednisolone sodium phosphate 15 15 mg PO UD 11/01/23 11/01/23 mg/5 mL (3 mg/mL) oral solution rifaximin 550 mg tablet (Xifaxan) 550 mg PO BID 11/01/23 11/01/23 urea 15 gram oral powder packet 0 g PO BID 11/01/23 11/01/23 (Ure-Na) Previous Rx's Medication Instructions Recorded folic acid 1 mg tablet 1 mg PO QAM #30 tabs 02/17/23 furosemide 40 mg tablet 40 mg PO QAM #30 tabs 02/17/23 spironolactone 100 mg tablet 100 mg PO QAM #30 tabs 02/17/23 pantoprazole 40 mg tablet,delayed 40 mg PO DAILY 30 days #30 tabs 10/07/23 release potassium chloride 20 mEq 20 meq PO BID 30 days #60 tabs 10/07/23 tablet,extended release(part/cryst) Results & Data (ED) Vital Signs Vital Signs - 24 hr 11/01/23 11:10 11/01/23 12:37 11/01/23 12:45 Temperature 36.8 C 36.8 C Temperature Source Temporal Artery Scan Oral Pulse Rate 97 H Pulse Rate [Right Finger] 91 H Pulse Rhythm Pulse Rhythm [Right Finger] Regular Pulse Strength [Right Finger] Normal Respiratory Rate 19 20 Respiratory Effort / Characteristics Non-Labored Spontaneous Non-Labored Spontaneous Respiratory Depth Normal Normal Respiratory Pattern Regular Blood Pressure 93/50 L Blood Pressure [Right Arm] 118/57 L Blood Pressure Mean 64 Blood Pressure Mean [Right Arm] 77 Blood Pressure Position [Right Arm] Semi-fowlers Pulse Oximetry 97 98 Oxygen Delivery Method Room Air Room Air Room Air Sepsis Recent Fever Within 48 Hours No Sepsis New/Unexplained Change in Mental Status No Sepsis Action Taken by Nursing No Action Required 11/01/23 12:46 11/01/23 13:29 Temperature Temperature Source Pulse Rate 97 H 88 Pulse Rate [Right Finger] Pulse Rhythm Regular Pulse Rhythm [Right Finger] Pulse Strength [Right Finger] Respiratory Rate 20 Respiratory Effort / Characteristics Respiratory Depth Respiratory Pattern Blood Pressure Blood Pressure [Right Arm] Blood Pressure Mean Blood Pressure Mean [Right Arm] Blood Pressure Position [Right Arm] Pulse Oximetry 98 Oxygen Delivery Method Room Air Sepsis Recent Fever Within 48 Hours Sepsis New/Unexplained Change in Mental Status Sepsis Action Taken by Nursing Laboratory Data 11/01/23 11:23 11/01/23 11:23 Lab Results 11/01/23 11/01/23 11/01/23 Range/Units 11:22 11:23 11:48 WBC 11.66 H (4.8-10.8) K/ul RBC 2.38 L (4.70-6.10) M/uL Hgb 8.7 L (14.0-18.0) g/dl POC Hgb 10.2 L (14.0-18.0) g/dl Hct 26.4 L (42.0-52.0) % POC Hct 30 L (42-52) % MCV 110.9 H (80.0-100.0) fL MCH 36.6 H (25.0-34.0) pg MCHC 33.0 (32.0-36.0) g/dL RDW Std Deviation 66.2 H (36.4-46.3) fL RDW Coeff of Marilyn 16.1 H (11.5-14.5) % Plt Count 92 L (130-400) K/uL MPV 10.8 (9.4-12.4) fL Immature Gran % (Auto) 2.7 % Neut % (Auto) 77.1 % Lymph % (Auto) 7.5 % [place] % (Auto) 10.6 % Eos % (Auto) 1.9 % Baso % (Auto) 0.2 % Neut # (Auto) 8.99 H (1.40-6.50) K/uL Lymph # (Auto) 0.88 L (1.20-3.40) K/uL [place] # (Auto) 1.24 H (0.11-0.59) K/uL Eos # (Auto) 0.22 (0.00-0.50) K/uL Baso # (Auto) 0.02 (0.00-0.20) K/uL Immature Gran # (Auto) 0.31 H (0.01-0.20) K/uL Polychromasia 2+ Basophilic Stippling 1+ Macrocytosis Present Echinocytes 2+ PT 43.3 H (9.0-12.0) Seconds INR 4.3 H (0.9-1.1) APTT 85 H* (21-31) Seconds PTT Ratio 3.0 POC Sodium 125 L (135-144) mmol/L Sodium TNP POC Potassium 4.8 (3.3-5.0) mmol/L Potassium TNP POC Chloride 95 L (101-112) mmol/L Chloride TNP Carbon Dioxide TNP POC Total CO2 19 L (24-31) mmol/L Anion Gap TNP POC Anion Gap 17.0 (16-25) mmol/L POC BUN 46 H (7-18) mg/dl BUN TNP Creatinine TNP POC Creatinine 4.9 H* (0.6-1.3) mg/dl Est Cr Clr Drug Dosing Not Reportable Est GFR ( Amer) Not Reportable Est GFR (Non-Af Amer) Not Reportable BUN/Creatinine Ratio TNP Glucose TNP POC Glucose (other) 82 (70-99) mg/dl Lactate 2.6 H* (0.4-2.0) mmol/L Calcium TNP POC Ioniz Calcium Bennett 1.18 (1.12-1.32) mmol/l Magnesium TNP Total Bilirubin 48.9 H (0.2-1.0) mg/dl Direct Bilirubin 26.3 H (0-0.2) mg/dl AST TNP ALT TNP Alkaline Phosphatase TNP Ammonia TNP Total Creatine Kinase TNP Troponin I High Sens 12.3 (0-20) pg/ml Total Protein TNP Albumin TNP Globulin TNP Albumin/Globulin Ratio TNP Procalcitonin 2.98 H (0-0.5) ng/ml TSH 7.105 H (0.300-4.500) uIu/ml Free T4 0.71 (0.61-1.60) ng/dl Urine Color Urine Appearance (Clear) Urine pH (4.5-7.5) Ur Specific Effie (1.000-1.030) Urine Protein (Negative) Urine Glucose (UA) (Negative) Urine Ketones (Negative) Urine Blood (Negative) Urine Nitrite (Negative) Urine Bilirubin (Negative) Urine Urobilinogen (Negative) Ur Leukocyte Esterase (Negative) Urine WBC (Auto) (0-5) /hpf Urine RBC (Auto) (0-4) /hpf U Hyaline Cast (Auto) (0-5) /lpf U Epithel Cells (Auto) (0-5) /lpf Urine Bacteria (Auto) (Negative) Urine Yeast Adenovirus (PCR) Not Detected (NotDetected) B. pertussis DNA (PCR) Not Detected (NotDetected) B.parapertussis DNA PCR Not Detected (NotDetected) C. pneumoniae DNA (PCR) Not Detected (NotDetected) Coronavirus OC43 (PCR) Not Detected (NotDetected) Coronavirus HKU1 (PCR) Not Detected (NotDetected) Coronavirus 229E (PCR) Not Detected (NotDetected) SARS-CoV-2 (PCR) Not Detected (NotDetected) Coronavirus NL63 (PCR) Not Detected (NotDetected) Human Metapneumovir PCR Not Detected (NotDetected) Influenza Type A (PCR) Not Detected (NotDetected) Influenza Type B (PCR) Not Detected (NotDetected) M. pneumoniae (PCR) Not Detected (NotDetected) Parainfluenza 1 (PCR) Not Detected (NotDetected) Parainfluenza 2 (PCR) Not Detected (NotDetected) Parainfluenza 3 (PCR) Not Detected (NotDetected) Parainfluenza 4 (PCR) Not Detected (NotDetected) RSV (PCR) Not Detected (NotDetected) Entero/Rhino (PCR) Not Detected (NotDetected) 11/01/23 11/01/23 Range/Units 12:33 14:35 WBC (4.8-10.8) K/ul RBC (4.70-6.10) M/uL Hgb (14.0-18.0) g/dl POC Hgb (14.0-18.0) g/dl Hct (42.0-52.0) % POC Hct (42-52) % MCV (80.0-100.0) fL MCH (25.0-34.0) pg MCHC (32.0-36.0) g/dL RDW Std Deviation (36.4-46.3) fL RDW Coeff of Marilyn (11.5-14.5) % Plt Count (130-400) K/uL MPV (9.4-12.4) fL Immature Gran % (Auto) % Neut % (Auto) % Lymph % (Auto) % [place] % (Auto) % Eos % (Auto) % Baso % (Auto) % Neut # (Auto) (1.40-6.50) K/uL Lymph # (Auto) (1.20-3.40) K/uL [place] # (Auto) (0.11-0.59) K/uL Eos # (Auto) (0.00-0.50) K/uL Baso # (Auto) (0.00-0.20) K/uL Immature Gran # (Auto) (0.01-0.20) K/uL Polychromasia Basophilic Stippling Macrocytosis Echinocytes PT (9.0-12.0) Seconds INR (0.9-1.1) APTT (21-31) Seconds PTT Ratio POC Sodium (135-144) mmol/L Sodium POC Potassium (3.3-5.0) mmol/L Potassium POC Chloride (101-112) mmol/L Chloride Carbon Dioxide POC Total CO2 (24-31) mmol/L Anion Gap POC Anion Gap (16-25) mmol/L POC BUN (7-18) mg/dl BUN Creatinine POC Creatinine (0.6-1.3) mg/dl Est Cr Clr Drug Dosing Est GFR ( Amer) Est GFR (Non-Af Amer) BUN/Creatinine Ratio Glucose POC Glucose (other) (70-99) mg/dl Lactate 1.8 (0.4-2.0) mmol/L Calcium POC Ioniz Calcium Bennett (1.12-1.32) mmol/l Magnesium Total Bilirubin (0.2-1.0) mg/dl Direct Bilirubin (0-0.2) mg/dl AST ALT Alkaline Phosphatase Ammonia Total Creatine Kinase Troponin I High Sens (0-20) pg/ml Total Protein Albumin Globulin Albumin/Globulin Ratio Procalcitonin (0-0.5) ng/ml TSH (0.300-4.500) uIu/ml Free T4 (0.61-1.60) ng/dl Urine Color Dark Yellow Urine Appearance Cloudy A (Clear) Urine pH 6.0 (4.5-7.5) Ur Specific Effie 1.013 (1.000-1.030) Urine Protein Negative (Negative) Urine Glucose (UA) Negative (Negative) Urine Ketones Negative (Negative) Urine Blood Negative (Negative) Urine Nitrite Positive A (Negative) Urine Bilirubin 3+ H (Negative) Urine Urobilinogen Negative (Negative) Ur Leukocyte Esterase 1+ H (Negative) Urine WBC (Auto) 5-10 H (0-5) /hpf Urine RBC (Auto) 0-4 (0-4) /hpf U Hyaline Cast (Auto) 1-5 (0-5) /lpf U Epithel Cells (Auto) 5-10 H (0-5) /lpf Urine Bacteria (Auto) 1+ H (Negative) Urine Yeast Not Reportable Adenovirus (PCR) (NotDetected) B. pertussis DNA (PCR) (NotDetected) B.parapertussis DNA PCR (NotDetected) C. pneumoniae DNA (PCR) (NotDetected) Coronavirus OC43 (PCR) (NotDetected) Coronavirus HKU1 (PCR) (NotDetected) Coronavirus 229E (PCR) (NotDetected) SARS-CoV-2 (PCR) (NotDetected) Coronavirus NL63 (PCR) (NotDetected) Human Metapneumovir PCR (NotDetected) Influenza Type A (PCR) (NotDetected) Influenza Type B (PCR) (NotDetected) M. pneumoniae (PCR) (NotDetected) Parainfluenza 1 (PCR) (NotDetected) Parainfluenza 2 (PCR) (NotDetected) Parainfluenza 3 (PCR) (NotDetected) Parainfluenza 4 (PCR) (NotDetected) RSV (PCR) (NotDetected) Entero/Rhino (PCR) (NotDetected) Administered Medications Discontinued Medications Albumin Human (Albumin 25%) 25 gm in 100 mls @ 50 mls/hr IV ONE ONE Stop: 11/01/23 14:45 Last Admin: 11/01/23 14:00 Dose: 50 mls/hr Documented By: ML Ceftriaxone Sodium (Rocephin) 2,000 mg in 50 mls @ 100 mls/hr IV NOW STA Stop: 11/01/23 13:15 Last Infusion: 11/01/23 14:00 Dose: Infused Documented By: Admin: 11/01/23 12:57 Dose: 100 mls/hr Documented By: CAW Imaging Data Radiologist's Impression: Chest X-Ray 11/01/23 11:13 XR chest 1V portable CLINICAL HISTORY: weakness TECHNIQUE: Single frontal radiograph of the chest was obtained. Comparison: Comparison is made to chest radiograph 10/04/2023 FINDINGS: Exam is limited by underpenetration. Cardiomegaly is noted. Lungs are underinflated but clear. No evidence of pleural effusion or pneumothorax. IMPRESSION: Bibasilar airspace opacities again seen, most suggestive of atelectasis. ACT 112: Negative or not required by law. Electronically signed by: Vince Garcia M.D. 11/01/2023 11:56 AM Discharge Plan Visit Data Chief Complaint: Referred by Doctor Stated Complaint: ABNORMAL LAB WORK, KIDNEY PROBLEMS ED Provider: Minesh Madera Discharge Problem: Decompensated HCV cirrhosis, FELI (acute kidney injury), Elevated bilirubin Patient Disposition: Admitted As Inpatient Forms Stand Alone Forms: [facility] Prescriptions Prescriptions: No Action thiamine HCl (vitamin B1) 100 mg tablet 100 mg PO QAM pantoprazole 40 mg Tablet,Delayed Release (Dr/Ec) 40 mg PO DAILY 30 Days Qty: 30 1RF Rx Instructions: At least 30 minutes before breakfast potassium chloride 20 mEq tablet,ER particles/crystals 20 meq PO BID 30 Days Qty: 60 0RF Rx Instructions: buys OTC prednisolone sodium phosphate 15 mg/5 mL (3 mg/mL) solution 15 mg PO UD Rx Instructions: 13.333mL x30 days midodrine 5 mg tablet 10 mg PO TID Rx Instructions: 8am, 12pm, 5pm lactulose [Constulose] 10 gram/15 mL solution 45 ml PO Q12H Xifaxan 550 mg tablet 550 mg PO BID multivitamin with folic acid [Daily-Paul (with folic acid)] 400 mcg tablet 0 tab PO QAM Rx Instructions: on hold with pharmacy; OTC Ure-Na 15 gram powder in packet 0 g PO BID Rx Instructions: on hold, hasnt been filled. spironolactone 100 mg Tablet 100 mg PO QAM Qty: 30 0RF furosemide 40 mg Tablet 40 mg PO QAM Qty: 30 0RF folic acid 1 mg Tablet 1 mg PO QAM Qty: 30 0RF Referrals Referrals: Adan Muniz MD [Primary Care Provider] -
[2023-11-01] MEDS ORDERED: cefTRIAXone SODIUM 2,000 MG/50 ML BAG IV STA (12:46)
[2023-11-01] MEDS ORDERED: ALBUMIN 25% 25 GM/100 ML VIAL IV ONE (12:46)
[2023-11-01 13:06] LABS: T4 Free Thyroxine 0.71 ng/dl (0.61-1.60)
[2023-11-01 13:07] LABS: Appearance Urine Cloudy (Clear); Bilirubin Urine 3+ (Negative); Blood Urine Negative (Negative); Color Urine Dark Yellow; Glucose Urine UA Negative (Negative); Ketones Urine Negative (Negative); Leukocyte Esterase Urine 1+ (Negative); Nitrite Urine Positive (Negative); Protein Urine Negative (Negative); Specific Gravity Urine 1.013 (1.000-1.030); Urobilinogen Urine Negative (Negative)
[2023-11-01 13:15] LABS: Bilirubin Direct 26.3 mg/dl (0-0.2)
[2023-11-01 13:25] LABS: Bacteria Urine Automated 1+ (Negative)
[2023-11-01 13:26] LABS: RBC Urine Automated 0-4 /hpf (0-4)
--- NOTE | 2023-11-01 13:45 | Communication Note ---
Date of Service: November 01, 2023 GI Note: Pt referred to ED by DORIS Green ([facility]) for findings of worsening renal function and hyponatremia in outpt labs. These labs were discussed with Dr. Isabelle De Guzman (Acds Block 1 Operator) who recommended that pt be hospitalized for med therapy including Albumin IV, Midodrine, fluid restriction and Nephrology evaluation. Repeat labs in ED reviewed which included findings of Na 125, INR 4.3, POC Cr 4.9. Maddrey Discriminant Function score >32, MELD 40. Case was discussed with my attending, Dr. Letty Boudreaux and ED physician Dr. Minesh Madera. Recommend that pt be transferred to [facility]. He was recently discharged from that facility after admitted with ETOH hepatitis and he has a future appt to get evaluated in [facility]. I was able to discuss the case with Ms Ruiz on 11/01/23, given the profound presentation with his bilirubin 40 recommend further evaluation of the transplant center as his MELD score is quite high and his 30-day mortality is significantly elevated.
--- NOTE | 2023-11-01 15:37 | History & Physical Report ---
Date of Service November 01, 2023 Assessment & Plan (1) Elevated bilirubin: (2) Decompensated HCV cirrhosis: (3) Alcoholic hepatitis: (4) FELI (acute kidney injury): (5) Thrombocytopenia: (6) Hyponatremia: Plan This is a 38-year-old male with PMH of alcoholic cirrhosis of the liver with esophageal varices, history of alcoholic hepatitis, thrombocytopenia, tobacco use and other medical problems listed below who was sent over by GI clinic due to abnormal lab results and presents with decompensated liver cirrhoses and hepatitis. Per outpatient chart review, patient was taken to [facility] after being found unconscious on 10/11 and was then life flighted from [facility] to [facility] for PNA and MSSA bacteremia. Was seen by hepatology there and prednisolone was discontinued. Diuretics were temporarily held and then resumed. Lactulose was prescribed at 45mg BID. Has an appt at [facility] hepatology on 12/05 for consideration of liver transplant. Last drink was "around Thanksgiving time." Decompensated cirrhosis Hepatitis Tbili 48.9, procal 2.98, POC Cr 4.9, Na 125, INR 4.3 MELD score is 40 Vincent HUNT recommending transfer back to [facility] given significant decompensation - [facility] [place] [facility] [place] the patient for further end-stage liver care however is awaiting a bed at both places, >24 hrs Will medically manage here until able to be transferred to tertiary care facility Per discussion with GI, continue albumin Q8H, midodrine 5mg TID, prednisolone 40mg daily, hold diuretics Received dose of Rochein in the ED. Afebrile, no abd pain so low concern for SBP. Will hold off on additional abx for now - follow blood culture Continue lactulose and rifaximin FELI POC Cr 4.9, was 2.5 yesterday in clinic (baseline Cr ~1) Serum Cr testing was performed but not reported as result was compromised due to icterus Nephrology consulted Hyponatremia In setting of cirrhosis as above. Na 125. Repeat BMP in AM DVT Ppx: SCDs Code status: FULL PCP: Cristy Dispo: Admit to PCU Patient seen in collaboration with Dr. Petersen. Please see addendum. I spent a total of 75 minutes coordinating, documenting, and providing care for this patient excluding time spent in the performance of separately billed services. History of Present Illness Chief Complaint: abnormal labs Primary Care Provider: Adan Muniz MD This is a 38-year-old male with PMH of alcoholic cirrhosis of the liver with esophageal varices, history of alcoholic hepatitis, thrombocytopenia, tobacco use and other medical problems listed below who was sent over by GI clinic due to abnormal lab results. Was noted to have creatinine of 2.5, T. bili of 42. Over the weekend on Tuesday had a temp of 100 F and had malaise but since then has felt better. No nasal congestion, cough, sore throat, CP, SOB, N/V,abdominal pain, has been having brown stool with lactulose. No abdominal distention compared to baseline but legs have been more swollen. Last drink was around Thanksgiving per patient. Per outpatient chart review, patient was taken to [facility] after being found unconscious on 10/11 and was then life flighted from [facility] to [facility] for PNA and MSSA bacteremia. Was seen by hepatology there and prednisolone was discontinued. Diuretics were temporarily held and then resumed. Lactulose was prescribed at 45mg BID. Has an appt at [facility] hepatology on 12/05 for consideration of liver transplant. Allergies Allergy/AdvReac Type Severity Reaction Status Date / Time acetaminophen Allergy Intermediate ELEVATED Verified 02/13/23 19:30 FEVER amoxicillin Allergy Intermediate UNKNOWN Verified 02/13/23 19:30 Penicillins Allergy Intermediate UNKNOWN Verified 02/13/23 19:30 acetylcysteine AdvReac Difficulty Verified 09/27/23 19:30 Breathing Home Medications Medication Instructions Recorded Confirmed Type folic acid 1 mg tablet 1 mg PO QAM #30 tabs 02/17/23 11/01/23 Rx furosemide 40 mg tablet 40 mg PO QAM #30 tabs 02/17/23 11/01/23 Rx spironolactone 100 mg tablet 100 mg PO QAM #30 tabs 02/17/23 11/01/23 Rx thiamine HCl (vitamin B1) 100 mg 100 mg PO QAM 10/04/23 11/01/23 History tablet pantoprazole 40 mg tablet,delayed 40 mg PO DAILY 30 days #30 tabs 10/07/23 11/01/23 Rx release potassium chloride 20 mEq 20 meq PO BID 30 days #60 tabs 10/07/23 11/01/23 Rx tablet,extended release(part/cryst) lactulose 10 gram/15 mL oral 30 ml PO Q12H 11/01/23 11/01/23 History solution (Constulose) midodrine 5 mg tablet 10 mg PO TID 11/01/23 11/01/23 History multivitamin with folic acid 400 0 tab PO QAM 11/01/23 11/01/23 History mcg tablet (Daily-Paul (with folic acid)) prednisolone sodium phosphate 15 15 mg PO UD 11/01/23 11/01/23 History mg/5 mL (3 mg/mL) oral solution rifaximin 550 mg tablet (Xifaxan) 550 mg PO BID 11/01/23 11/01/23 History urea 15 gram oral powder packet 15 g PO DAILY 11/01/23 11/01/23 History (Ure-Na) Past Med/Surg History Medical History Thrombocytopenia Alcohol use disorder Alcoholic hepatitis Ascites Esophageal varices History of deep venous thrombosis Liver cirrhosis SBP (spontaneous bacterial peritonitis) Surgical History No significant past surgical history Family History Grandmother (Maternal) Colorectal cancer Mother Stroke Social History Smoking Status: Former smoker Tobacco Type: E-cigarettes / Vaping Second Hand Exposure: No; Do You Dip or Chew Tobacco: No; Hx Alcohol Use: Yes Alcohol type: wine Hx Substance Use: No Preferred Language: Lebanese Communication Ability: Effective Communication Ability Comment: verbal Research Advisor Required: No Beliefs That Will Affect Care: None Current Living Situation: Family Current Living Situation Comment: with two teenage daughters Feels Safe at Home: Yes Assistive Devices: None Review of Systems Review of Systems: At least ten systems reviewed and negative except as noted in the HPI. Physical Exam Physical Exam: Please see Dr. Petersen's addendum for physical exam. Results & Data Results & Data Vital Signs (Past 12 Hours) Vital Signs Temp Pulse Pulse Resp BP BP Pulse Ox 11/01/23 13:29 88 11/01/23 12:46 97 H 20 98 11/01/23 12:45 36.8 C 91 H 20 118/57 L 98 11/01/23 12:37 11/01/23 11:10 36.8 C 97 H 19 93/50 L 97 O2 Del Method 11/01/23 13:29 11/01/23 12:46 Room Air 11/01/23 12:45 Room Air 11/01/23 12:37 Room Air 11/01/23 11:10 Room Air Laboratory Results Short CBC 11/01/23 Range/Units 11:23 WBC 11.66 H (4.8-10.8) K/ul Hgb 8.7 L (14.0-18.0) g/dl Hct 26.4 L (42.0-52.0) % Plt Count 92 L (130-400) K/uL BMP 11/01/23 11:23 Sodium TNP Potassium TNP Chloride TNP Carbon Dioxide TNP BUN TNP Creatinine TNP Glucose TNP Calcium TNP Cardiac Enzymes 11/01/23 Range/Units 11:23 Total Creatine Kinase TNP Liver Function 11/01/23 Range/Units 11:23 Total Bilirubin 48.9 H (0.2-1.0) mg/dl Direct Bilirubin 26.3 H (0-0.2) mg/dl AST TNP ALT TNP Alkaline Phosphatase TNP Albumin TNP Urine 11/01/23 Range/Units 12:33 Urine Color Dark Yellow Urine Appearance Cloudy A (Clear) Urine pH 6.0 (4.5-7.5) Ur Specific Bicknell 1.013 (1.000-1.030) Urine Protein Negative (Negative) Urine Glucose (UA) Negative (Negative) Diagnostic Findings Chest X-Ray 11/01/23 11:13 XR chest 1V portable CLINICAL HISTORY: weakness TECHNIQUE: Single frontal radiograph of the chest was obtained. Comparison: Comparison is made to chest radiograph 10/04/2023 FINDINGS: Exam is limited by underpenetration. Cardiomegaly is noted. Lungs are underinflated but clear. No evidence of pleural effusion or pneumothorax. IMPRESSION: Bibasilar airspace opacities again seen, most suggestive of atelectasis. ACT 112: Negative or not required by law. Electronically signed by: Vince Garcia M.D. 11/01/2023 11:56 AM Supervising Physician Co-Signing Physician Notes Patient seen and examined. 38-year-old man with decompensated alcoholic cirrhosis who presents due to abnormal lab. Patient was seen in the ER and GI plan to transfer to [place] for evaluation and treatment as patient has a future appointment to get liver transplant evaluation at [place]. However, due to nonavailability of bed at this time patient is being admitted here to start management. Review of system notable for jaundice, leg swelling and some malaise. Otherwise, patient denies any new complaints On exam General: Severely jaundiced Eyes: PERRL, conjunctivae normal, not pale, +icteric sclerae, EOM intact bilaterally ENMT: External ear and nose normal, oropharynx normal Respiratory: Normal respiratory effort, no respiratory distress, lungs clear to auscultation, no crackles and no wheezes Cardiovascular: RRR S1 S2 Gastrointestinal (Abdomen): Abdomen is mild distended, soft, non-tender to palpation, normal bowel sounds Musculoskeletal: +bilateral pedal edema Neurologic: Alert and oriented x 3, No focal weakness, sensation grossly intact Psychiatric: Euthymic affect Labs notable for sodium of 125, creatinine of 4.9, total bilirubin of 48.9, WBC of 11.6, hemoglobin of 8.7, MCV of 110 INR 4.3 TSH of 7.1 but normal free T4 of 0.71. Chest x-ray noted bibasilar opacities suggestive of atelectasis. Decompensated alcoholic cirrhosis FELI. Possible Hepatorenal syndrome. Hyperbilirubinemia Hypervolemic hyponatremia MELD-Na score of 40 Maddrey's score of 192 Possible alcoholic hepatitis. Though patient reports last alcohol intake was in Aug 2023 Discussed with GI Constult nephrology Started on albumin and midodrine per GI Accepted to both [place] and [facility] Transfer once available Hold home diuretics Monitor MELD labs daily, Monitor renal function I spent a total of 50 minutes coordinating, documenting and providing care for this patient excluding time spent in performance of separately billed services (3) Alcoholic hepatitis Ascites presence: with ascites Qualified Code(s): K70.11 - Alcoholic hepatitis with ascites
--- OUTSIDE RECORDS SUMMARY | 2023-11-01 15:50 | External Medical Summary ---
Author Name Unknown Address Unknown Organization [id number]:LABORATORY [facility] [place] - [address] [place] [address] Laboratory Report Ordering Provider Test Date Status JOSE L LOVE 10/31/2023 11:15:51 Final Observation Date Value Abnormality Reference (Units ) Status WBC, Total 10/31/2023 11:15:51 12.19 Above high normal 4 .00-10.80 (K/uL) Final RBC 10/31/2023 11:15:51 2.52 4.50-5.25 (M/uL) Final Hemoglobin 10/31/2023 11:15:51 9.5 Below low normal 14 .0-16.8 (g/dL) Final Anemia reflex testing trigge rs on a HGB < 12.0 for Females and HGB < 13.0 for Males in accordance with the WHO Anemia Guidelines
Anemia reflex testing triggers on a HGB < 12.0 for Females and HGB < 13.0 for Males in accordance with the WHO Anemia Guidelines HCT 10/31/2023 11:15:51 30.3 Below low normal 40. 0-48.4 (%) Final MCV 10/31/2023 11:15:51 120.2 82.0-99.5 (fL) Final MCH 10/31/2023 11:15:51 37.7 27.0-34.0 (pg) Final MCHC 10/31/2023 11:15:51 31.4 32.0-36.0 (g/dL) Final RDW 10/31/2023 11:15:51 16.8 11.5-15.5 (%) Final Platelets 10/31/2023 11:15:51 96 Below low normal 140 -400 (K/uL) Final MPV 10/31/2023 11:15:51 12.4 6.6-11.1 ( fL) Final Nucleated erythrocytes/100 leukocytes [Ratio] in Blood by Automated count 10/31/2023 11:15:51 0 <=0 (/100 WBCs) [facility] Performing Location [facility]ORY [facility] [place] - [address] [facility] [address]
--- OUTSIDE RECORDS SUMMARY | 2023-11-01 15:50 | External Medical Summary | Summary of Care ---
Author Name Unknown Organization [facility] Address [address] [place] [address] Phone [phone] Care Team Providers Care Hand Or Machine Paster Name Role Phone Adan Muniz MD Primary Care Provide r Reason for Visit * Reason Onset Date Comments FYI 10/21/2023 Encounter Details Date Type Department Care Team (Late st Contact Info) Description 10/21/2023 Telephone Family Medicine [address] [phone] Adan Muniz MD [address] [place] [address] [place] [address] Allergies Active Allergy Reactions Criticality Noted Date Comments Amoxicillin Rash 10/20/2017 Penicillins Rash High 10/20/2017 Other reaction(s): UNKNOWN Acetaminophen Nausea/vomiting,Othe r (Please comment),Rash 10/20/2017 Shortness of breath documented as of this encounter (statuses as of 10/26/2023) Medications Medication Sig Dispensed Refills Start Date End Date Status K Phos Huntington-Sod Phos Di & Huntington [phone] MG Oral Tablet (K-Phos Neutral) Take [...] mouth in the morning. 0 09/30/2023 Active Pantoprazole Sodium 40 MG Oral Tablet Delayed Release (Protonix) Take 1 Tablet by mouth in the morning. 0 10/07/2023 Active Potassium Chloride Vilma ER 20 MEQ Oral Tablet Extended Release Take 1 Tablet by mouth in the morning and 1 Tablet before bedtime. 0 10/07/2023 Active Urea 15 GM Oral Packet (Ure-Na) Take 15 g by mouth in the morning and 15 g before bedtime. 0 10/11/2023 Active documented as of this encounter (statuses as of 10/26/2023) Active Problems Problem Noted Date Diagnosed Date [...] as of this encounter (statuses as of 10/26/2023) Resolved Problems Problem Noted Date Diagnosed Date Resolved Date SBP (spontaneous bacterial peritonitis) 01/23/2019 02/22/2023 DVT (deep venous thrombosis) 01/21/2019 01/22/2019 Overview: In 2017 - treated for 3 months with AC Alcohol abuse 01/21/2019 08/16/2022 Coagulation defect 01/21/2019 2 Cellulitis, abdominal wall 01/21/2019 1 10/16/2021 Reflux esophagitis 01/15/2006 1 documented as of this encounter (statuses as of 10/26/2023) Immunizations Name Administration Dates Next Due DTaP [...] Telephone Encounter - Tiffanie Ross RN - 10/26/2023 4:34 PM EST HH notified * Telephone Encounter - Adan Muniz MD - 10/26/2023 10:05 AM EST Okay to continue both meds - pt has hx of hypoK+ and recent K+ was 3.2 - repeat lab next clinic visit * Telephone Encounter - Kaushik Murray OSA - 10/21/2023 4:07 PM EST Mily, home health nurse, calling. Pt had start of care today. On running drug interactions, pt had one major. It was potassium chloride and spironolactone. Mily's # is [phone]. documented in this encounter Plan of Treatment Upcoming Encounters Date Type Department Care Team (Latest Contact Info) Description 11/04/2023 11:10 AM EST Office Visit Family Medicine [address] [place] [address] [place] [address] 12/01/2023 12:00 PM EST Office Visit Gastroenterology , [facility] [address] [place] [address] Arash Archuleta CRNP [address] [place] [address] 12/05/2023 11:45 AM EST Hospital Encounter ENDO [facility], Endoscopy Room [facility] [address] [place] [phone] Isabelle De Guzman DO [address] [place] [address] 12/05/2023 11:45 AM EST - 12/05/2023 12:15 PM EST Surgery ENDO [facility], Endoscopy Room [facility] [address] [place] [phone] Isabelle De Guzman, DO [address] [place] [address] ESOPHAGOGASTRODUODENOSCOPY (EGD), FLEXIBLE, TRANSORAL, DIAGNOSTIC 01/30/2024 2:40 PM EDT Office Visit Hepatology, [facility] [address] [place] [address] Isabelle De Guzman, DO [address] [place] [address] Scheduled Procedures Name Priority Associated Diagnoses Date/Ti me ESOPHAGOGASTRODUODENOSCOPY ( EGD), FLEXIBLE, TRANSORAL, DIAGNOSTIC Alcoholic hepatitis with ascites Alcoholic cirrhosis of liver with ascites (HCC) 12/05/2023 11:45 AM EST Health Maintenance Due Date Last Done Comments COVID-19 Vaccine (#1) 04/08/1986 Depression Screening 1997 DTaP,Tdap,and Td Vaccines (2 - Tdap) 10/10/2019 10/10/2009 Influenza Vaccine (FLU shot) (#1) 2023 Diabetes Screening 10/25/2026 10/25/2023, 0 04/06/2023, 02/28/2023, Additional history exists Pneumococcal Vaccine: Pediatrics (0 [...] and were consensually agreed upon. Care Teams Hand Or Machine Paster Relationship Specialty Start Date End Date Adan Muniz MD [address] [place] [address] [place] [id number] PCP - General Family Medicine 02/22/23 documented as of this encounter
--- OUTSIDE RECORDS SUMMARY | 2023-11-01 15:50 | External Medical Summary ---
Author Name Unknown Address Unknown Organization [id number]:[facility] [place] [address] [facility] [place] [address] Laboratory Report Ordering Provider Test Date Status JOSE L LOVE 10/31/2023 11:15:51 Final Observation Date Value Abnormality Reference (Units ) Status SYNC LEUKOCYTES IN BLOOD BY AUTOMATED COUNT 10/31/2023 11:15:51 12.19 Above high normal 4.00-10.80 (K/uL) Final Segs 10/31/2023 11:15:51 85.4 Above high normal 40.0-75.0 (%) Final Lymphs % 10/31/2023 11:15:51 4.4 Below low normal 18.0-42.0 (%) Final Monos 10/31/2023 11:15:51 7.1 1.0-11.0 (%) Final Eosinophils 10/31/2023 11:15:51 1.1 0.0-6.0 (%) Final Basos 10/31/2023 11:15:51 0.4 0.0-2.0 (%) Final Immature Granulocyte, Percent 10/31/2023 11:15:51 1.6 0.0-2.0 (%) Final Absolute Segs 10/31/2023 11:15:51 10.41 Above high normal 1.80-7.70 (K/uL) Final Lymphs, absolute 10/31/2023 11:15:51 0.54 Below low normal 1.00-4.80 (K/ul) Final Monos, Abs 10/31/2023 11:15:51 0.86 0.00-1.10 (K/uL) Final Eos, Abs 10/31/2023 11:15:51 0.13 0.00-0.70 (K/uL) Final Basos, Abs 10/31/2023 11:15:51 0.05 0.00-0.20 (K/uL) Final Immature Granulocytes, Number 10/31/2023 11:15:51 0.20 0.00-0.20 (K/uL) Final Performing Location [facility] [place] [facility] [address] [facility] [address]
--- OUTSIDE RECORDS SUMMARY | 2023-11-01 15:50 | External Medical Summary ---
Author Name Unknown Address Unknown Organization [id number]:LABORATORY [facility] - [address] [facility] [address] Laboratory Report Ordering Provider Test Date Status JOSE L LOVE 10/31/2023 11:15:51 Final Observation Date Value Abnormality Reference (Units ) Status Acanthocytes [Presence] in Blood by Light microscopy 10/31/2023 11:15:51 Many Abnormal None Seen Final Schistocytes 10/31/2023 11:15:51 Moderate Abnormal None Seen Final Neutrophils.vacuolated [Presence] in Blood by Light microscopy 10/31/2023 11:15:51 Present Abnormal None Seen Final Performing Location LABORATORY [facility] - [address] [facility] [address]
--- OUTSIDE RECORDS SUMMARY | 2023-11-01 15:50 | External Medical Summary ---
Author Name Unknown Address Unknown Organization [id number]:LABORATORY [facility] [place] - [address] [place] [address] Laboratory Report Ordering Provider Test Date Status JOSE L LOVE 10/31/2023 11:15:51 Final Observation Date Value Abnormality Reference (Units ) Status BUN 10/31/2023 11:15:51 37 Above high normal 6-20 (mg/dL) Final Creatinine 10/31/2023 11:15:51 2.5 Above high normal 0.6-1.2 (mg/dL) Final Glomerular filtration rate/1.73 sq M.predicted [Volume Rate/Area] in Serum, Plasma or Blood by Creatinine-based formula (CKD-EPI) 10/31/2023 11:15:51 33 Below low normal >=60 (mL/min) Final eGFR is calculated based on the CKD-EPI 2020 equation SODIUM 10/31/2023 11:15:51 127 Below low normal 135 -146 (mmol/L) Final Potassium 10/31/2023 11:15:51 4.8 3.5-5.1 (m mol/L) Final Cl 10/31/2023 11:15:51 94 Below low normal 98- 107 (mmol/L) Final CO2 10/31/2023 11:15:51 14 Below low normal 22- 32 (mmol/L) Final Anion gap 10/31/2023 11:15:51 19 Above high normal 7- 15 (mmol/L) Final Glucose 10/31/2023 11:15:51 86 70-120 (mg /dL) Final Albumin 10/31/2023 11:15:51 3.5 Below low normal 3.8 -5.0 (g/dL) Final AST (Aspartate aminotransferase) 10/31/2023 11:15:51 76 Above high normal 10-50 (U/L) Final Alk Phos 10/31/2023 11:15:51 101 35-130 (U/ L) Final Bilirubin, Total 10/31/2023 11:15:51 42.2 Above high no rmal <=1.2 (mg/dL) Final Calcium 10/31/2023 11:15:51 9.5 8.4-10.2 ( mg/dL) Final Protein 10/31/2023 11:15:51 Final Specimen to Icterus to resul t. ALT (Alanine aminotransferase) 10/31/2023 11:15:51 40 10-50 (U/L) Final Performing Location LABORATORY [facility] [place] - [address] [facility] [address]
--- OUTSIDE RECORDS SUMMARY | 2023-11-01 15:50 | External Medical Summary ---
Author Name Unknown Address Unknown Organization K01:LABORATORY [facility] - [address] [facility] [address] Laboratory Report Ordering Provider Test Date Status ERIN HASSAN 10/31/2023 11:15:51 Final Observation Date Value Abnormality Reference (Units ) Status Ethanol 10/31/2023 11:15:51 Negative Negative Final Performing Location LABORATORY [facility] - [address] [facility] [address]
--- OUTSIDE RECORDS SUMMARY | 2023-11-01 15:50 | External Medical Summary ---
Author Name Unknown Address Unknown Organization [id number]:[facility] [place] [facility] [place] [address] Laboratory Report Ordering Provider Test Date Status JOSE L LOVE 10/31/2023 11:15:51 Final Observation Date Value Abnormality Reference (Units ) Status Retic, % (auto) 10/31/2023 11:15:51 4.88 Above high normal 0.80-1.90 (%) Final Reticulocytes, Absolute 10/31/2023 11:15:51 121.5 Above high normal 31.3-100.1 (K/uL) Final Reticulocyte fraction, immature 10/31/2023 11:15:51 19.4 2.5-20.6 (%) Final Reticulocyte HGB 10/31/2023 11:15:51 35.8 29.7-37.4 (pg) Final Performing Location [facility] [place] [address] [place] [address]
--- OUTSIDE RECORDS SUMMARY | 2023-11-01 15:50 | External Medical Summary ---
Author Name Unknown Address Unknown Organization [id number]:LABORATORY [facility] [place] - [address] [address] Laboratory Report Ordering Provider Test Date Status JOSE L LOVE 10/31/2023 11:15:51 Final Observation Date Value Abnormality Reference (Units ) Status Folic Acid 10/31/2023 11:15:51 18.9 >4.5 (ng/ mL) Final Performing Location LABORATORY [facility] [place] - [address] [place] [address]
--- OUTSIDE RECORDS SUMMARY | 2023-11-01 15:50 | External Medical Summary ---
Author Name Unknown Address Unknown Organization [id number]:LABORATORY [facility] [place] - [address] [place] [address] Laboratory Report Ordering Provider Test Date Status HANNAH GOTTLIEB 10/31/2023 11:15:51 Final Observation Date Value Abnormality Reference (Units ) Status MYCODE SPECIMEN-SST 10/31/2023 11:15:51 Freezing of extracted DNA, whole blood and/or serum. Final Performing Location LABORATORY [facility] [place] - [address] [facility] [address]
--- OUTSIDE RECORDS SUMMARY | 2023-11-01 15:50 | External Medical Summary ---
Author Name Unknown Address Unknown Organization [id number]:[facility] [place] [address] [place] [address] Laboratory Report Ordering Provider Test Date Status JOSE L LOVE 10/31/2023 11:15:51 Final Observation Date Value Abnormality Reference (Units ) Status Vitamin B12 10/31/2023 11:15:51 >2000 Above high normal 232-1245 (pg/mL) Final Performing Location LABORATORY [facility] - [address] [place] [address]
--- OUTSIDE RECORDS SUMMARY | 2023-11-01 15:50 | External Medical Summary | Summary of Care ---
Author Name Unknown Organization [facility] Address [address] [place] [address] Phone [phone] Care Team Providers Care Universal Worker Assisted Living Name Role Phone Adan Muniz MD Primary Care Provide r Reason for Visit * Reason Onset Date Comments Abnormal Lab Results 11/01/2023 Encounter Details Date Type Department Care Team (Late st Contact Info) Description 11/01/2023 Telephone Gastroenterology, [facility] [address] [place] [address] Arash Archuleta CRNP [address] [facility] [place] [address] Abnormal Lab Results Allergies Active Allergy Reactions Criticality Noted Date Comments Amoxicillin Rash 10/20/2017 Penicillins Rash High 10/20/2017 Other reaction(s): UNKNOWN Acetaminophen Nausea/vomiting,Othe r (Please comment),Rash 10/20/2017 Shortness of breath documented as of this encounter (statuses as of 11/01/2023) Medications Medication Sig Dispensed Refills Start Date End Date Status K Phos Kingfisher-Sod Phos Di & Kingfisher 155-852-130 MG Oral Tablet (K-Phos Neutral) Take [...] 15 g before bedtime. 0 10/11/2023 Active Lactulose 10 GM/15ML Oral Solution (Constulose) Take 30 mL by mouth in the morning and 30 mL at noon and 30 mL before bedtime. 0 Active rifAXIMin 550 MG Oral Tablet (Xifaxan) Take 1 Tablet by mouth in the morning and 1 Tablet before bedtime. 0 Active Midodrine HCl 5 MG Oral Tablet (Proamatine) Take 1 Tablet by mouth in the morning and 1 Tablet at noon and 1 Tablet in the evening. 0 Active documented as of this encounter (statuses as of 11/01/2023) Active Problems Problem Noted Date Diagnosed Date [...] as of this encounter (statuses as of 11/01/2023) Resolved Problems Problem Noted Date Diagnosed Date Resolved Date SBP (spontaneous bacterial peritonitis) 01/23/2019 02/22/2023 DVT (deep venous thrombosis) 01/21/2019 01/22/2019 Overview: In 2017 - treated for 3 months with AC Alcohol abuse 01/21/2019 08/16/2022 Coagulation defect 01/21/2019 2 Cellulitis, abdominal wall 01/21/2019 1 10/16/2021 Reflux esophagitis 01/15/2006 1 documented as of this encounter (statuses as of 11/01/2023) Immunizations Name Administration Dates Next Due DTaP [...] Telephone Encounter - Arash Archuleta CRNP - 11/01/2023 8:23 AM EST Cr 2.5, Na 127. T Bili 42. ETOH (-) but PETH was very high earlier this month at [facility]. Discussed w Dr. De Guzman who is here in the clinic. Pt needs hospitalization for IV albumin TID x 3 days, fluid restriction, midodrine, nephrology consult. Notified pt. He is reluctant to seek He tells me that he is not able to drive to [facility] (not enough money for gas to get there, lives closer to [place]). I call the [place] ED and provided a report w background and above info. The ED charge nurse told me that they do not have nephrology or gastro, so if he presents there, hewill need to be transferred and it may take a few days to get a bed. I called the pt back at [phone] and informed him to go to [facility] (strongly suggested) or as the [place] ED said, go to [place]. He will call friends/family to try to get a ride to [facility]. He will call us back at [phone] and we will send an ambulance to his home to take him to [facility] if he is unable to get a ride. documented in this encounter Plan of Treatment Upcoming Encounters Date Type Department Care Team (Latest Contact Info) Description 11/04/2023 11:10 AM EST Office Visit Family Medicine [address] [place] [phone] [address] [place] [address] 12/01/2023 12:00 PM EST Office Visit Gastroenterology , [facility] [address] [place] [address] Arash Archuleta CRNP [address] [place] [address] 12/05/2023 11:45 AM EST Hospital Encounter [facility]O [facility], Endoscopy Room [facility] [address] [place], [place] [phone] Isabelle De Guzman DO [address] [place] [address] 12/05/2023 11:45 AM EST - 12/05/2023 12:15 PM EST Surgery ENDO [facility], Endoscopy Room [facility] [address] [place] [address] Isabelle De Guzman DO [address] [place] [address] ESOPHAGOGASTRODUODENOSCOPY (EGD), FLEXIBLE, TRANSORAL, DIAGNOSTIC 01/30/2024 2:40 PM EDT Office Visit Hepatology, [facility] [address] [place] [address] Isabelle De Guzman DO [address] [place] [address] Scheduled Procedures Name Priority Associated Diagnoses Date/Ti me ESOPHAGOGASTRODUODENOSCOPY ( EGD), FLEXIBLE, TRANSORAL, DIAGNOSTIC Alcoholic hepatitis with ascites Alcoholic cirrhosis of liver with ascites (HCC) 12/05/2023 11:45 AM EST Health Maintenance Due Date Last Done Comments COVID-19 Vaccine (#1) 04/08/1986 Depression Screening 1997 DTaP,Tdap,and Td Vaccines (2 - Tdap) 10/10/2019 10/10/2009 Influenza Vaccine (FLU shot) (#1) 2023 Diabetes Screening 10/31/2026 10/31/2023, 0 10/25/2023, 04/06/2023, Additional history exists Pneumococcal Vaccine: Pediatrics (0 [...] and were consensually agreed upon. Care Teams Universal Worker Assisted Living Relationship Specialty Start Date End Date Adan Muniz MD [address] [place] [address] [place] [address] PCP - General Family Medicine 02/22/23 documented as of this encounter
--- OUTSIDE RECORDS SUMMARY | 2023-11-01 15:50 | External Medical Summary ---
Author Name Unknown Address Unknown Organization K01:[facility] [place] [address] [place] [address] Laboratory Report Ordering Provider Test Date Status HANNAH GOTTLIEB 10/31/2023 11:15:51 Final Observation Date Value Abnormality Reference (Units ) Status MYCODE SPECIMEN-SST 10/31/2023 11:15:51 Freezing of extracted DNA, whole blood and/or serum. Final Performing Location [facility] [place] [address] [facility] [address]
--- OUTSIDE RECORDS SUMMARY | 2023-11-01 15:50 | External Medical Summary ---
Author Name Unknown Address Unknown Organization K01[place] [place] [address] [place] [address] Laboratory Report Ordering Provider Test Date Status ERIN HASSAN 10/31/2023 11:15:51 Final Observation Date Value Abnormality Reference (Units ) Status Alpha-Fetoprotein 10/31/2023 11:15:51 <1.8 0. 0-8.3 (ng/mL) Final Performing Location LABORATORY [facility] - [address] [place] [address]
--- OUTSIDE RECORDS SUMMARY | 2023-11-01 15:50 | External Medical Summary | Summary of Care ---
Author Name Unknown Organization [facility] Address [address] [place] [address] Phone [phone] Care Team Providers Care [employer] Foreign Language Tutor Name Role Phone Adan Muniz MD Primary Care Provide r Reason for Visit * Reason Comments Outpatient Testing Encounter Details Date Type Department Care Team (Late st Contact Info) Description 10/31/2023 11:30 AM EST Laboratory Laboratory [address] [place] [phone] [place] [address] Hypokalemia; Decompensated hepatic cirrhosis (HCC); [employer] Other*[id number]; Alcoholic hepatitis with ascites Allergies Active Allergy Reactions Criticality Noted Date Comments Amoxicillin Rash 10/20/2017 Penicillins Rash High 10/20/2017 Other reaction(s): UNKNOWN Acetaminophen Nausea/vomiting,Othe r (Please comment),Rash 10/20/2017 Shortness of breath documented as of this encounter (statuses as of 10/31/2023) Medications Medication Sig Dispensed Refills Start Date End Date Status K Phos Reynolds-Sod Phos Di & Reynolds 155-852-130 MG Oral Tablet (K-Phos Neutral) Take [...] as of this encounter (statuses as of 10/31/2023) Active Problems Problem Noted Date Diagnosed Date [...] as of this encounter (statuses as of 10/31/2023) Resolved Problems Problem Noted Date Diagnosed Date Resolved Date SBP (spontaneous bacterial peritonitis) 01/23/2019 02/22/2023 DVT (deep venous thrombosis) 01/21/2019 01/22/2019 Overview: In 2017 - treated for 3 months with AC Alcohol abuse 01/21/2019 08/16/2022 Coagulation defect 01/21/2019 2 Cellulitis, abdominal wall 01/21/2019 1 10/16/2021 Reflux esophagitis 01/15/2006 1 documented as of this encounter (statuses as of 10/31/2023) Immunizations Name Administration Dates Next Due DTaP [...] 11:10 AM EST Office Visit Family Medicine [address] [place] [phone] [place] [address] 12/01/2023 12:00 PM EST [facility] [address] [place] [address] Arash Archuleta CRNP [address] [place] [address] 12/05/2023 11:45 AM EST Hospital Encounter ENDO [facility], Endoscopy Room [facility] [address] [place] [phone] Isabelle De Guzman DO [address] [place] [address] 12/05/2023 11:45 AM EST - 12/05/2023 12:15 PM EST Surgery ENDO [facility], Endoscopy Room [facility] [address] [place] [phone] Isabelle De Guzman DO [address] [place] [address] ESOPHAGOGASTRODUODENOSCOPY (EGD), FLEXIBLE, TRANSORAL, DIAGNOSTIC 01/30/2024 2:40 PM EDT Office Visit Hepatology, [facility] [address] [place] [address] Isabelle De Guzman DO [address] [place] [address] Pending Results Name Type Priority Associated Diagnoses Date /Time COMPREHENSIVE METABOLIC PANEL Lab Routine Decompensated hepatic cirrhosis (HCC) 10/31/2023 11:15 AM EST CBC WITH WBC DIFFERENTIAL AND ANEMIA REFLEX WORKUP Lab Routine Decompensated hepatic cirrhosis (HCC) 10/31/2023 11:15 AM EST MYCODE SUBSEQUENT ADULT Lab Routine [employer] Other*[id number] 10/31/2023 11:15 AM EST ALPHA-FETOPROTEIN TUMOR MARKER Lab Routine Alcoholic hepatitis with ascites 10/31/2023 11:15 AM EST ANEMIA CBC Lab Routine Decompensated hepatic cirrhosis (HCC) 10/31/2023 11:15 AM EST DIFFERENTIAL, AUTOMATED Lab Routine Decompensated hepatic cirrhosis (HCC) 10/31/2023 11:15 AM EST ANEMIA REFLEX CHEMISTRY HOLD Lab Routine Decompensated hepatic cirrhosis (HCC) 10/31/2023 11:15 AM EST MYCODE SST1 Lab Routine [employer] Other*[id number] 10/31/2023 11:15 AM EST MYCODE SST2 Lab Routine [employer] Other*[id number] 10/31/2023 11:15 AM EST Scheduled Procedures Name Priority Associated Diagnoses Date/Ti [...] as of this encounter Visit Diagnoses Diagnosis Hypokalemia Hypopotassemia Decompensated hepatic cirrhosis (HCC) [employer] Other*[id number] Alcoholic hepatitis with ascites Acute alcoholic hepatitis [...] and were consensually agreed upon. Care Teams High [employer] Foreign Language Tutor Relationship Specialty Start Date End Date Adan Muniz MD [address] [place] [address] [place] [address] PCP - General Family Medicine 02/22/23 documented as of this encounter
--- OUTSIDE RECORDS SUMMARY | 2023-11-01 15:50 | External Medical Summary | Summary of Care ---
Author Name Unknown Organization [facility] Address [address] [place] [address] Phone [phone] Care Team Providers Care Pharmacy Data Analyst Name Role Phone Adan Muniz MD Primary Care Provide r Encounter Details Date Type Department Care Team (Late st Contact Info) Description 10/27/2023 Orders Only PATIENT PORTAL DO NOT DELETE THIS DEPT USED BY [place] [id number] Allergies Active Allergy Reactions Criticality Noted Date Comments Amoxicillin Rash 10/20/2017 Penicillins Rash High 10/20/2017 Other reaction(s): UNKNOWN Acetaminophen Nausea/vomiting,Othe r (Please comment),Rash 10/20/2017 Shortness of breath documented as of this encounter (statuses as of 10/27/2023) Medications Medication Sig Dispensed Refills Start Date End Date Status K Phos Gentry-Sod Phos Di & Gentry 155-852-130 MG Oral Tablet (K-Phos Neutral) Take [...] as of this encounter (statuses as of 10/27/2023) Active Problems Problem Noted Date Diagnosed Date [...] as of this encounter (statuses as of 10/27/2023) Resolved Problems Problem Noted Date Diagnosed Date Resolved Date SBP (spontaneous bacterial peritonitis) 01/23/2019 02/22/2023 DVT (deep venous thrombosis) 01/21/2019 01/22/2019 Overview: In 2017 - treated for 3 months with AC Alcohol abuse 01/21/2019 08/16/2022 Coagulation defect 01/21/2019 2 Cellulitis, abdominal wall 01/21/2019 1 10/16/2021 Reflux esophagitis 01/15/2006 1 documented as of this encounter (statuses as of 10/27/2023) Immunizations Name Administration Dates Next Due DTaP [...] 11:10 AM EST Office Visit Family Medicine [address] [place] [phone] Ailin Velazquez [address] [place] [address] 12/01/2023 12:00 PM EST Office Visit Gastroenterology , [facility] [address] [place] [address] Arash Archuleta CRNP [address] [place] [address] 12/05/2023 11:45 AM EST Hospital Encounter ENDO [facility], Endoscopy Room [facility] [address] [place] [phone] Isabelle De Guzman DO [address] [place] [address] 12/05/2023 11:45 AM EST - 12/05/2023 12:15 PM EST Surgery ENDO [facility], Endoscopy Room [facility] [address] [place] [phone] Isabelle De Guzman DO [address] [place] [address] ESOPHAGOGASTRODUODENOSCOPY (EGD), FLEXIBLE, TRANSORAL, DIAGNOSTIC 01/30/2024 2:40 PM EDT Office Visit Hepatology, [facility] [address] [place] [address] Isabelle De Guzman DO [address] [place] [address] Scheduled Procedures Name Priority Associated Diagnoses Date/Ti [...] and were consensually agreed upon. Care Teams Pharmacy Data Analyst Relationship Specialty Start Date End Date Adan Muniz MD [address] [place] [address] [place] [address] PCP - General Family Medicine 02/22/23 documented as of this encounter
--- OUTSIDE RECORDS SUMMARY | 2023-11-01 15:50 | External Medical Summary | Summary of Care ---
Author Name Unknown Organization [facility] Address [address] [place] [address] Phone [phone] Care Team Providers Care Floor Covering Installer Name Role Phone Adan Muniz MD Primary Care Provide r Reason for Visit * Reason Comments NEW PATIENT Cirrhosis, hospital follow up Encounter Details Date Type Department Care Team (Late st Contact Info) Description 10/25/2023 2:00 PM EST Office Visit [facility], [facility] [address] [facility] [address] Arash Archuleta CRNP [address] [facility] [place] [address] Alcoholic hepatitis with ascites* Allergies Active Allergy Reactions Criticality Noted Date Comments Amoxicillin Rash 10/20/2017 Penicillins Rash High 10/20/2017 Other reaction(s): UNKNOWN Acetaminophen Nausea/vomiting,Othe r (Please comment),Rash 10/20/2017 Shortness of breath documented as of this encounter (statuses as of 10/26/2023) Medications Medication Sig Dispensed Refills Start Date End Date Status K Phos [place]-Sod Phos Di & [place] 155-852-130 MG Oral Tablet (K-Phos Neutral) Take [...] Sign Reading Time Taken Comments Blood Pressure 109/53 10/25/2023 2:07 PM EST Pulse 95 10/25/2023 2:07 PM EST Temperature 36.4 C (97.5 F) 10/25/2023 2:07 PM ES T Respiratory Rate - - Oxygen Saturation 98% 10/25/2023 2:07 PM EST Inhaled Oxygen Concentration - - Weight 110.5 kg (243 lb 11.2 oz) 10/25/2023 2:07 PM EST Height - - Body Mass Index 33.99 04/06/2023 12:28 PM EDT documented in this [...] as of this encounter Progress Notes * Arash Archuleta CRNP - 10/26/2023 11:27 AM EST MELD 3.0: 36 at 10/25/2023 3:22 PM Calculated from: Serum Creatinine: 1.1 mg/dL at 10/25/2023 3:22 PM Serum Sodium: 135 mmol/L at 10/25/2023 3:22 PM Total Bilirubin: 45.0 mg/dL at 10/25/2023 3:22 PM Serum Albumin: 3.8 g/dL (Using max of 3.5 g/dL) at 10/25/2023 3:22 PM INR(ratio): 3.8 at 10/25/2023 3:22 PM Age at listing (hypothetical): 38 years Sex: Male at 10/25/2023 3:22 PM Pt being eval for [place] [facility] [place] app[place] in Nov) and through [facility] (hepatology appt in Nov). Pt reports last ETOH intake in late August. T Bili in Sep at [facility] 36. Unable to prescribe steroids secondary to recent pneumonia. Will message Dr. De Guzman who saw him at [facility] in Sep to ask if should restart steroids or start pentoxifylline. * Arash Archuleta CRNP - 10/25/2023 1:11 PM EST CC: Hospital F/u HPI: Recall that Mr. Braxton Roe is a 38 yr old male pt of Dr. Muniz who was also previously seen by Dr. De Guzman in hepatology clinic for decompensated alcohol cirrhosis. He carries a hx of relapsing alcoholism, previously w ETOH hepatitis, ascites and varicies. He is seen today for hospital f/u. He was admitted to [facility] 10/04 - 10/07 for ETOH hepatitis, w worsening ascites Maddrey's DF was 35. Paracentesis was completed there 600ml removed, (-) for SBP (112 WBCs). He was dc'ed on Prednisolone 40mg daily, Lasix 40/Spironolactone 100 daily, 2G Na diet, 1.5L f luid restriction, strick ETOH abstinence. Unfortunately, he became confused, lethargic and unconscious on Oct 11, was taken by ambulance from his home to [facility] then life flighted from that facility to [facility] where he was seen by hepatology. He was diagnosed with pneumonia there. Prednisolone was DC'ed, diuretics were temporarily held then restarted at the same outpatient dosing. Lactulose was prescribed at 45 mg twice daily. He has an appt at [facility] hepatology Dec 05 to consider liver transplant there including possible living donor transplant. He has abstained since "around " 2022. Current symptoms are continued jaundice, general weakness which is improving daily. He is drinking about 2.5L of water or fruit juices daily. Peripheral edema and ascites are decreasing. He is down 15lbs in the past month which he attributes to fluid loss w diuretics. 235 lbs is probably his dry weight (during a 5 yr abstinence that was his weight). 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 He does not have any confusion (since Oct 11), or blood in his BMs. He is here w his girlfriend and her daughter. Decompensations: Varices: yes Ascites: yes SBP: no HRS: no HE: yes (see [facility] records under media, Oct 2023 admission) HCC: no Screening: EGD: 2017- large varices Next EGD arranged for Nov 2023. Colonoscopy: not at age Liver imaging: US Sep 2023 at [facility]: cirrhosis w/o lesions, small/moderate ascites. CT 02/2023- no liver lesions Current Outpatient Medications Medication Sig Dispense Refill K Phos [place]-Sod Phos Di & [place] 155-852-130 MG Oral Tablet (K-Phos Neutral) Take 2 Tablets by mouth 3 times a day. Vitamin B-1 100 MG Oral Tablet Take 1 Tablet by mouth in the morning. Multi-Vitamins Oral Tablet Take 1 Tablet by mouth daily at noon. 90 Tablet 3 Folic Acid 1 MG Oral Tablet Take 1 Tablet by mouth in the morning. 90 Tablet 3 Spironolactone 100 MG Oral Tablet (Aldactone) Take 1 Tablet by mouth in the morning. 90 Tablet 3 Furosemide 40 MG Oral Tablet (Lasix) Take 1 Tablet by mouth in the morning. 90 Tablet 3 Pantoprazole Sodium 40 MG Oral Tablet Delayed Release (Protonix) Take 1 Tablet by mouth in the morning. Potassium Chloride Vilma ER 20 MEQ Oral Tablet Extended Release Take 1 Tablet by mouth in the morning and 1 Tablet before bedtime. Urea 15 GM Oral Packet (Ure-Na) Take 15 g by mouth in the morning and 15 g before bedtime. Lactulose 10 GM/15ML Oral Solution (Constulose) Take 30 mL by mouth in the morning and 30 mL at noon and 30 mL before bedtime. rifAXIMin 550 MG Oral Tablet (Xifaxan) Take 1 Tablet by mouth in the morning and 1 Tablet before bedtime. Midodrine HCl 5 MG Oral Tablet (Proamatine) Take 1 Tablet by mouth in the morning and 1 Tablet at noon and 1 Tablet in the evening. prednisoLONE Sodium Phosphate 15 MG/5ML Oral Solution (Orapred) Take 13.3 mL by mouth in the morning. (Patient not taking: Reported on 10/25/2023) No current facility-administered medications for this visit. EXAM: BP 109/53 | Pulse 95 | Temp 36.4 C (97.5 F) | Wt 110.5 kg (243 lb 11.2 oz) | SpO2 98% | BMI 33.99 kg/m | BSA 2.35 m GENERAL: 38 year old male well developed and well nourished in no acute distress SKIN: +++ Jaundice, otherwise no rashes, ulcers, + spider angiomata on the chest; red palms HEENT: normocephalic, sclera clear, pharynx normal NECK: supple, no lymphadenopathy, no masses or thyroid enlargement LUNGS: clear to auscultation anterior and posterior HEART: regular rate & rhythm, no murmurs and no gallops ABDOMEN: normo-active bowel sounds, soft, mild/moderate ascites, moderate umbilical hernia, non-tender, no masses, no hepatosplenomegaly, no rebound or guarding, no bruits EXTREMITIES: no palmar erythema, no edema, no skin discoloration, no clubbing, no cyanosis NEURO: no lateralizing findings, Sensory/Motor grossly normal. Able to count backwards from 100 by 7s to 72. Assessment and plan: Braxton Roe is a 38 year old M with history of decompensated alcohol cirrhosis dx'ed in Aug 2022 w ETOH relapse and hepatitis in February 2023 and Sep 2023, w hx EV ascites, peripheral edema. Now w one episode of hepatic encephalopathy during pneumonia. Currently seem mentally clear, reasonable phys ically healthy, able to walk a long distance in our large building w/o fatigue or SOB. 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 MELD labs today. Lactulose 45ml every morning always, then if more 3-4 loose BMs daily then may skip the second dosedaily. Due to recent pneumonia, will not restart prednisolone or Trental. -Variceal screening: needs EGD for EVL. Last EGD in 2016 with large varices next arranged for Nov, reviewed w pt. Not on a NSBB (relatively low BP). -Fluid status: Currently on lasix 40 mg and spironolactone 100 mg PO daily. Will likely increase iftoday's labs show normal renal function. -HCC screening: last done by US at [facility] in September. Due again in March 2024. -Avoid liver toxins including over the counter herbal supplements. May take Acetaminophen up to 2 grams a day. Avoid NSAIDS due to increased risk of GI bleeding and fluid retention. - No alcohol. -Transplant evaluation: has hepatology f/u in December here in [facility] Dec 05. Pt understands that he must participate in structured counseling and have 6 month abstinence. Work excuse - may return December 08. Will re-eval a week prior. Recent one time episode of Hep enceph likely related to infection. If an episode occurs again then will consider pulling his license andapplying for SSI disability. -Follow up in end of Nov here to re-eval to go back to work. Alcoholic hepatitis with ascites (Primary) - CBC WITH WBC DIFFERENTIAL; Future; Expected date: 10/25/2023 - COMPREHENSIVE METABOLIC PANEL - BILIRUBIN, DIRECT; Future; Expected date: 10/25/2023 - PT INR; Future; Expected date: 10/25/2023 - RETURN TO WORK OR SCHOOL - RETURN TO WORK OR SCHOOL - ETHANOL, MEDICAL - ALPHA-FETOPROTEIN TUMOR MARKER; Future; Expected date: 10/25/2023 I spent a total of 65 minutes on the date of service in review of patient's record, and previously obtained information in person and appropriate medical visit, discussion and education of plan, withpatient and/or caregiver, placing orders for tests/referral/procedures as medically necessary and documentation of pertinent clinical information in patient's medical records for their visit today. documented in this encounter Nursing Notes * Sherrill Solorzano LPN - 10/25/2023 2:14 PM EST Patient identified by name and date of . Chief Complaint Patient presents with NEW PATIENT Cirrhosis, hospital follow up Pt present with andrez webb. Symptoms: weight loss, weight gain, bloating/gas, abdominal pain( states his belly button pops out thinks he has a hernia), icterus, jaundice, and extremity edema -in kris lower legs and arms/fingers,denies SOB Bowel Movement Frequency: states he moves his bowels every 2-3 hours. 'Without the lactulose maybe 3 times a day" Bowel Movement Consistency: varies Straining: no Rectal Pain: no Blood in Stool: No Last paracentesis was in September at [facility] , removed around 600-700 cc. documented in this encounter Plan of Treatment Upcoming Encounters Date Type Department Care Team (Latest Contact Info) Description 11/04/2023 11:10 AM EST Office Visit Family [address] [place] [phone] Ailin Velazquez [address] [place] [address] 12/01/2023 12:00 PM EST Office Visit Gastroenterology , [facility] [address] [place] [address] Arash Archuleta CRNP [address] [place] [address] 12/05/2023 11:45 AM EST Hospital Encounter ENDO [facility], Endoscopy Room [facility] [address] [place] [phone] Isabelle De Guzman DO [address] [place] [address] 12/05/2023 11:45 AM EST - 12/05/2023 12:15 PM EST Surgery ENDO [facility], Endoscopy Room [facility] [address] [place] [phone] Isabelle De Guzman DO [address] [place] [address] ESOPHAGOGASTRODUODENOSCOPY (EGD), FLEXIBLE, TRANSORAL, DIAGNOSTIC 01/30/2024 2:40 PM EDT Office Visit Hepatology, [facility] [address] [place] [address] Isabelle De Guzman DO [address] [place] [address] Scheduled Orders Name Type Priority Associated Diagnoses Orde r Schedule ETHANOL, MEDICAL Lab Routine Alcoholic hepatitis with ascites Ordered: 10/25/2023 ALPHA-FETOPROTEIN TUMOR MARKER Lab Routine Alcoholic hepatitis with ascites Expected: 10/25/2023, Expires: 10/25/2024 Scheduled Procedures Name Priority Associated Diagnoses Date/Ti [...] Procedure Name Priority Date/Time Associated Diagnosis Comments COMPREHENSIVE METABOLIC PANEL Routine 10/25/2023 3:22 PM EST Alcoholic hepatitis with ascites documented in this encounter Results * (ABNORMAL) PT INR (10/25/2023 3:22 PM EST) Prothrombin Time 38.3(H) 11.6 - 15.2 seconds 10/25/2023 4:08 PM EST [facility] [place] [facility]10 INR 3.8(H) 0.8 - 1.2 10/25/2023 4:08 PM EST [facility] [place] [facility] Blood Venous blood specimen / Unknown Venipuncture / Unknown 10/25/2023 3:22 PM EST 10/25/2023 3:22 PM EST Narrative [facility] [place] [facility]-10 - 10/25/2023 4:08 PM EST Warfarin Therapy INR: 2.0-3.0 conventional anticoagulation INR: 2.5-3.5 high intensity anticoagulation Arash Archuleta DOR[facility] LAB BLOOD ORDERABL ES [facility] [place] [facility]-10 [address] [place] [address] * (ABNORMAL) BILIRUBIN, DIRECT (10/25/2023 3:22 PM EST) Bilirubin, Direct >10.0(H) 0.0 - 0.3 mg/dL 10/26/2023 12:35 AM EST [facility] Blood Venous blood specimen / Unknown Venipuncture / Unknown 10/25/2023 3:22 PM EST 10/25/2023 3:22 PM EST Arash Archuleta [facility] BLOOD ORDERABL [facility] [address] [place] [address] * (ABNORMAL) COMPREHENSIVE METABOLIC PANEL (10/25/2023 3:22 PM EST) BUN 17 6 - 20 mg/dL 10/26/2023 1:36 AM EST [facility] Creatinine 1.1 0.6 - 1.2 mg/dL 10/26/2023 1:36 AM EST [facility] Comment: Result corrected on dilution. Changed result: Previously reported as 1.0 mg/dL on 10/26/2023 at 0035 EST. Estimated Glomerular Filtration Rate 86 >=60 mL/min 10/26/2023 1:36 AM EST [facility] Comment: eGFR is calculated based on the CKD-EPI 2020 equation Changed result: Previously reported as >90 mL/min on 10/26/2023 at 0035 EST. Sodium 135 135 - 146 mmol/L 10/26/2023 1:36 AM EST [facility] Potassium 3.2(L) 3.5 - 5.1 mmol/L 10/26/2023 1:36 AM EST [facility] Chloride 101 98 - 107 mmol/L 10/26/2023 1:36 AM EST [facility] CO2 19(L) 22 - 32 mmol/L 10/26/2023 1:36 AM EST [facility] Anion Gap 15 7 - 15 mmol/L 10/26/2023 1:36 AM EST [facility] Glucose 95 70 - 120 mg/dL 10/26/2023 1:36 AM EST [facility] Albumin 3.8 3.8 - 5.0 g/dL 10/26/2023 1:36 AM EST [facility] AST 73(H) 10 - 50 U/L 10/26/2023 1:36 AM EST [facility] Alkaline Phosphatase 110 35 - 130 U/L 10/26/2023 1:36 AM EST [facility] Bilirubin, Total 45.0(H) <=1.2 mg/dL 10/26/2023 1:36 AM EST [facility] Calcium 8.6 8.4 - 10.2 mg/dL 10/26/2023 1:36 AM EST [facility] Protein 10/26/2023 1:36 AM EST [facility] Comment: Specimen to Icterus. Recollect if total protein is needed. Changed result: Previously reported as 5.3 g/dL on 10/26/2023 at 0035 EST. ALT 44 10 - 50 U/L 10/26/2023 1:36 AM EST [facility] Blood Venous blood specimen / Unknown Venipuncture / Unknown 10/25/2023 3:22 PM EST 10/25/2023 3:22 PM EST Arash [facility] LAB BLOOD ORDERABL ES [facility] [address] [facility] [place] [address] documented in this encounter Visit Diagnoses Diagnosis Alcoholic hepatitis with ascites- Primary Acute alcoholic hepatitis Alcoholic hepatitis with ascites Acute alcoholic hepatitis Alcoholic cirrhosis of liver with ascites (HCC) Alcoholic cirrhosis of liver documented in this encounter Advance Directives Latest Code Status on File Code Status Date Activated Date Inactivated Comments Full Code 01/20/2019 11:57 PM 01/27/2019 6:54 PM This order reflects the patients wishes and were consensually agreed upon. Care Teams Floor Covering Installer Relationship Specialty Start Date End Date Adan Muniz MD [address] [place] [address] [place] [address] PCP - General Family Medicine 02/22/23 documented as of this encounter
--- OUTSIDE RECORDS SUMMARY | 2023-11-01 15:51 | External Medical Summary | Summary of Care ---
Author Name Unknown Organization [facility] Address [address] [place] [address] Phone [phone] Care Team Providers Care Pipe Caulker Name Role Phone Adan Muniz MD Primary Care Provide r Reason for Visit * Reason Onset Date Comments Information 10/26/2023 Encounter Details Date Type Department Care Team (Late st Contact Info) Description 10/26/2023 Telephone Gastroenterology, [facility] [address] [address] Arash Archuleta CRNP [address] [facility] [place] [address] Information (/) Allergies Active Allergy Reactions Criticality Noted Date Comments Amoxicillin Rash 10/20/2017 Penicillins Rash High 10/20/2017 Other reaction(s): UNKNOWN Acetaminophen Nausea/vomiting,Othe r (Please comment),Rash 10/20/2017 Shortness of breath documented as of this encounter (statuses as of 10/26/2023) Medications Medication Sig Dispensed Refills Start Date End Date Status K Phos [place]-Sod Phos Di & [place] 155-852-130 MG Oral Tablet (K-Phos Neutral) Take [...] Telephone Encounter - Arash Archuleta CRNP - 10/26/2023 11:25 AM EST Aware. * Telephone Encounter - Sandy Espinoza OSA - 10/26/2023 11:11 AM EST Quique called and stated patient's labs were correct and wanted to make sure you were aware. documented in this encounter Plan of Treatment Upcoming Encounters Date Type Department Care Team (Latest Contact Info) Description 11/04/2023 11:10 AM EST Office Visit Family Medicine [address] [place] [address] [place] [address] 12/01/2023 12:00 PM EST Office Visit Gastroenterology , [facility] [address] [place] [address] Arash Archuleta CRNP [address] [place] [address] 12/05/2023 11:45 AM EST Hospital Encounter ENDO [facility], Endoscopy Room [facility] [address] [place] [phone] Isabelle De Guzman [address] [place] [address] 12/05/2023 11:45 AM EST - 12/05/2023 12:15 PM EST Surgery ENDO [facility], Endoscopy Room [facility] [address] [place] [phone] Isabelle De Guzman DO [address] [place] [address] ESOPHAGOGASTRODUODENOSCOPY (EGD), FLEXIBLE, TRANSORAL, DIAGNOSTIC 01/30/2024 2:40 PM EDT Office Visit Hepatology, [facility] [address] [place] [address] Isabelle De Guzman DO [address] [place] [address] Scheduled Procedures Name Priority Associated Diagnoses Date/Ti [...] and were consensually agreed upon. Care Teams Pipe Caulker Relationship Specialty Start Date End Date Adan Muniz MD [address] [place] [address] [place] [id number] PCP - General Family Medicine 02/22/23 documented as of this encounter
--- OUTSIDE RECORDS SUMMARY | 2023-11-01 15:51 | External Medical Summary | Summary of Care ---
Author Name Unknown Organization [facility] Address [address] [place] [address] Phone [phone] Care Team Providers Care Housing Assistant Property Manager Name Role Phone Adan Muniz MD Primary Care Provide r Reason for Visit * Reason Onset Date Comments FYI 10/21/2023 Encounter Details Date Type Department Care Team (Late st Contact Info) Description 10/21/2023 Telephone Family Medicine [address] [phone] Adan Muniz MD [address] [place] [address] [place] [address] Allergies Active Allergy Reactions Criticality Noted Date Comments Amoxicillin Rash 10/20/2017 Penicillins Rash High 10/20/2017 Other reaction(s): UNKNOWN Acetaminophen Nausea/vomiting,Othe r (Please comment),Rash 10/20/2017 Shortness of breath documented as of this encounter (statuses as of 10/26/2023) Medications Medication Sig Dispensed Refills Start Date End Date Status K Phos [place]-Sod Phos Di & [place] 155-852-130 MG Oral Tablet (K-Phos Neutral) Take [...] potassium chloride and spironolactone. Mily's # is [phone]. documented in this encounter Plan of Treatment Upcoming Encounters Date Type Department Care Team (Latest Contact Info) Description 11/04/2023 11:10 AM EST Office Visit Family Medicine [address] [place] [phone] Ailin Velazquez [address] [place] [address] 12/01/2023 12:00 PM EST Office Visit Gastroenterology , [facility] [address] [place] [address] Arash Archuleta CRNP [address] [place] [address] 12/05/2023 11:45 AM EST Hospital Encounter ENDO [facility], Endoscopy Room [facility] [address] [place] [phone] Isabelle De Guzman DO [address] [place] [address] 12/05/2023 11:45 AM EST - 12/05/2023 12:15 PM EST Surgery ENDO [facility], Endoscopy Room [facility] [address] [place] [phone] Isabelle De Guzman, DO [address] [place] [address] ESOPHAGOGASTRODUODENOSCOPY (EGD), FLEXIBLE, TRANSORAL, DIAGNOSTIC 01/30/2024 2:40 PM EDT Office Visit Hepatology, [facility] [address] [place] [address] Isabelle De Guzman, DO [address] [place] [address] Scheduled Procedures Name Priority Associated Diagnoses Date/Ti [...] and were consensually agreed upon. Care Teams Housing Assistant Property Manager Relationship Specialty Start Date End Date Adan Muniz MD [address] [place] [address] [place] [address] PCP - General Family Medicine 02/22/23 documented as of this encounter
--- OUTSIDE RECORDS SUMMARY | 2023-11-01 15:51 | External Medical Summary | Summary of Care ---
Author Name Unknown Organization [facility] Address [address] [place] [address] Phone [phone] Care Team Providers Care Editorial Specialist Name Role Phone Adan Muniz MD Primary Care Provide r Reason for Visit * Reason Comments NEW PATIENT Cirrhosis, hospital follow up Encounter Details Date Type Department Care Team (Late st Contact Info) Description 10/25/2023 2:00 PM EST Office Visit [facility]astroenterology, [facility] [address] [facility] [address] Arash Archuleta CRNP [address] [facility] [place] [address] Alcoholic hepatitis with ascites* Allergies Active Allergy Reactions Criticality Noted Date Comments Amoxicillin Rash 10/20/2017 Penicillins Rash High 10/20/2017 Other reaction(s): UNKNOWN Acetaminophen Nausea/vomiting,Othe r (Please comment),Rash 10/20/2017 Shortness of breath documented as of this encounter (statuses as of 10/25/2023) Medications Medication Sig Dispensed Refills Start Date End Date Status K Phos Dixon-Sod Phos Di & Dixon 155-852-130 MG Oral Tablet (K-Phos Neutral) Take [...] as of this encounter (statuses as of 10/25/2023) Active Problems Problem Noted Date Diagnosed Date [...] as of this encounter (statuses as of 10/25/2023) Resolved Problems Problem Noted Date Diagnosed Date Resolved Date SBP (spontaneous bacterial peritonitis) 01/23/2019 02/22/2023 DVT (deep venous thrombosis) 01/21/2019 01/22/2019 Overview: In 2017 - treated for 3 months with AC Alcohol abuse 01/21/2019 08/16/2022 Coagulation defect 01/21/2019 2 Cellulitis, abdominal wall 01/21/2019 1 10/16/2021 Reflux esophagitis 01/15/2006 1 documented as of this encounter (statuses as of 10/25/2023) Immunizations Name Administration Dates Next Due DTaP [...] Progress Notes * Arash Archuleta CRNP - 10/25/2023 1:11 [...] for hospital f/u. He was admitted to [facility] 10/04 - 10/07 for ETOH hepatitis, w worsening ascites Maddrey's DF was 35. Paracentesis was completed there 600ml removed, (-) for SBP (112 WBCs). He was dc'ed on Prednisolone 40mg daily, Lasix 40/Spironolactone 100 daily, 2G Na diet, 1.5L f luid restriction, strick ETOH abstinence. Unfortunately, he became confused, lethargic and unconscious on Oct 11, was taken by ambulance from his home to [facility] then life flighted from that facility [place] [facility] [place] was seen by hepatology. He was diagnosed with pneumonia there. Prednisolone was DC'ed, diuretics were temporarily held then restarted at the same outpatient dosing. Lactulose was prescribed at 45 mg twice daily. He has an appt at [facility] hepatology Dec 05 to consider liver transplant there including possible living donor transplant. He has abstained since "around ," 2022. Current symptoms are continued jaundice, general [...] was his weight). 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 He does not have any confusion (since Oct 11), or blood in his BMs. He is here w his girlfriend and her daughter. Decompensations: Varices: yes Ascites: yes SBP: no HRS: no HE: yes (see [facility] records under media, Oct 2023 admission) HCC: no Screening: EGD: 2017- large varices Next EGD arranged for Nov 2023. Colonoscopy: not at age Liver imaging: US Sep 2023 at [facility]: cirrhosis w/o lesions, small/moderate ascites. CT 02/2023- no liver lesions Current Outpatient Medications Medication Sig Dispense Refill K Phos Dixon-Sod Phos Di & Dixon 155-852-130 MG Oral Tablet (K-Phos Neutral) Take [...] -HCC screening: last done by US at [facility] in September. Due again in March 2024. -Avoid liver toxins including over the counter herbal supplements. May take Acetaminophen up to 2 grams a day. Avoid NSAIDS due to increased risk of GI bleeding and fluid retention. - No alcohol. -Transplant evaluation: has hepatology f/u in December here in [facility] [place] 05. Pt understands that he must [...] No Last paracentesis was in September at [facility] , removed around 600-700 cc. documented in this encounter Plan of Treatment Upcoming Encounters Date Type Department Care Team (Latest Contact Info) Description 11/04/2023 11:10 AM EST Office Visit Family Medicine [address] [place] [phone] Ailin Velazquez [address] [place] [address] 12/01/2023 12:00 PM EST Office Visit Gastroenterology , [facility] [address] [place] [address] Arash Archuleta CRNP [address] [place] [address] 12/05/2023 11:45 AM EST Hospital Encounter ENDO [facility], Endoscopy Room [facility] [address] [place] [phone] Isabelle De Guzman DO [address] [place] [address] 12/05/2023 11:45 AM EST - 12/05/2023 12:15 PM EST Surgery ENDO [facility], Endoscopy Room [facility] [address] [place] [phone] Isabelle De Guzman, DO [address] [place] [address] ESOPHAGOGASTRODUODENOSCOPY (EGD), FLEXIBLE, TRANSORAL, DIAGNOSTIC 01/30/2024 2:40 PM EDT Office Visit Hepatology, [facility] [address] [place] [address] Isabelle De Guzman, DO [address] [place] [address] Pending Results Name Type Priority Associated Diagnoses Date /Time CBC WITH WBC DIFFERENTIAL Lab Routine Alcoholic hepatitis with ascites 10/25/2023 3:22 PM EST COMPREHENSIVE METABOLIC PANEL Lab Routine Alcoholic hepatitis with ascites 10/25/2023 3:22 PM EST BILIRUBIN, DIRECT Lab Routine Alcoholic hepatitis with ascites 10/25/2023 3:22 PM EST PT INR Lab Routine Alcoholic hepatitis with ascites 10/25/2023 3:22 PM EST Scheduled Orders Name Type Priority Associated Diagnoses Orde r Schedule CBC WITH WBC DIFFERENTIAL Lab Routine Alcoholic hepatitis with ascites Expected: 10/25/2023, Expires: 10/25/2024 BILIRUBIN, DIRECT Lab Routine Alcoholic hepatitis with ascites Expected: 10/25/2023, Expires: 10/25/2024 PT INR Lab Routine Alcoholic hepatitis with ascites Expected: 10/25/2023, Expires: 10/25/2024 ETHANOL, MEDICAL Lab Routine Alcoholic hepatitis with [...] of this encounter Visit Diagnoses Diagnosis Alcoholic hepatitis [...] and were consensually agreed upon. Care Teams Editorial Specialist Relationship Specialty Start Date End Date Adan Muniz MD [address] [place] [address] [place] [address] PCP - General Family Medicine 02/22/23 documented as of this encounter
--- OUTSIDE RECORDS SUMMARY | 2023-11-01 15:51 | External Medical Summary ---
Author Name Unknown Address Unknown Organization [id number]:[facility] [place] [facility] [address] [place] [address] Laboratory Report Ordering Provider Test Date Status ERIN HASSAN 10/25/2023 15:22:01 Final Observation Date Value Abnormality Reference (Units ) Status WBC, Total 10/25/2023 15:22:01 10.36 4.00-10.80 (K/uL) Final RBC 10/25/2023 15:22:01 2.39 4.50-5.25 (M/uL) Final Hemoglobin 10/25/2023 15:22:01 9.0 Below low normal 14.0-16.8 (g/dL) Final HCT 10/25/2023 15:22:01 27.6 Below low normal 40.0-48.4 (%) Final MCV 10/25/2023 15:22:01 115.5 82.0-99.5 (fL) Final MCH 10/25/2023 15:22:01 37.7 27.0-34.0 (pg) Final MCHC 10/25/2023 15:22:01 32.6 32.0-36.0 (g/dL) Final RDW 10/25/2023 15:22:01 19.7 11.5-15.5 (%) Final Platelets 10/25/2023 15:22:01 76 Below low normal 140-400 (K/uL) Final MPV 10/25/2023 15:22:01 12.4 6.6-11.1 (fL) Final Nucleated erythrocytes/100 leukocytes [Ratio] in Blood by Automated count 10/25/2023 15:22:01 0 <=0 (/100 WBCs) Final Performing Location [facility] [place] [address] [place] [address]
--- OUTSIDE RECORDS SUMMARY | 2023-11-01 15:51 | External Medical Summary ---
Author Name Unknown Address Unknown Organization [id number]:LABORATORY [facility] [place] - [address] [place] [address] Laboratory Report Ordering Provider Test Date Status ERIN HASSAN 10/25/2023 15:22:01 Final Observation Date Value Abnormality Reference (Units ) Status Acanthocytes [Presence] in Blood by Light microscopy 10/25/2023 15:22:01 Many Abnormal None Seen Final Schistocytes 10/25/2023 15:22:01 Moderate Abnormal None Seen Final Performing Location LABORATORY [facility] - [address] [place] [address]
--- OUTSIDE RECORDS SUMMARY | 2023-11-01 15:51 | External Medical Summary | Summary of Care ---
Author Name Unknown Organization [facility] Address [address] [place] [address] Phone [phone] Care Team Providers Care Crossing Watchman Name Role Phone Adan Muniz MD Primary Care Provide r Reason for Visit * Reason Comments Outpatient Testing Encounter Details Date Type Department Care Team (Late st Contact Info) Description 10/25/2023 3:30 PM EST Laboratory Laboratory, [facility] [address] [place] [address] [facility] [address] [place] [address] Alcoholic hepatitis with ascites Allergies Active Allergy Reactions Criticality Noted Date Comments Amoxicillin Rash 10/20/2017 Penicillins Rash High 10/20/2017 Other reaction(s): UNKNOWN Acetaminophen Nausea/vomiting,Othe r (Please comment),Rash 10/20/2017 Shortness of breath documented as of this encounter (statuses as of 10/25/2023) Medications Medication Sig Dispensed Refills Start Date End Date Status K Phos Morton-Sod Phos Di & Morton 155-852-130 MG Oral Tablet (K-Phos Neutral) Take [...] 11:10 AM EST Office Visit Family Medicine [address] [place] [address] [place] [address] 12/01/2023 12:00 PM EST Office Visit Gastroenterology , [facility] [address] [place] [address] Arash Archuleta CRNP [address] [place] [address] 12/05/2023 11:45 AM EST Hospital Encounter ENDO [facility], Endoscopy Room [facility] [address] [place] [phone] Isabelle De Guzman DO [address] [place] [address] 12/05/2023 11:45 AM EST - 12/05/2023 12:15 PM EST Surgery ENDO [facility], Endoscopy Room [facility] [address] [place] [phone] Isabelle De Guzman DO [address] [place] [address] ESOPHAGOGASTRODUODENOSCOPY (EGD), FLEXIBLE, TRANSORAL, DIAGNOSTIC 01/30/2024 2:40 PM EDT Office Visit Hepatology, [facility] [address] [place] [address] Isabelle De Guzman, DO [address] [place] [address] Pending Results Name Type Priority Associated Diagnoses Date /Time CBC WITH WBC DIFFERENTIAL Lab Routine Alcoholic hepatitis with ascites 10/25/2023 3:22 PM EST BILIRUBIN, DIRECT Lab Routine Alcoholic hepatitis with ascites 10/25/2023 3:22 PM EST PT INR Lab Routine Alcoholic hepatitis with ascites 10/25/2023 3:22 PM EST CBC Lab Routine Alcoholic hepatitis with ascites 10/25/2023 3:22 PM EST DIFFERENTIAL, AUTOMATED Lab Routine Alcoholic hepatitis with ascites 10/25/2023 3:22 PM EST Scheduled Procedures Name Priority Associated Diagnoses [...] encounter Visit Diagnoses Diagnosis Alcoholic hepatitis with ascites Acute alcoholic hepatitis [...] and were consensually agreed upon. Care Teams Crossing Watchman Relationship Specialty Start Date End Date Adan Muniz MD [address] [place] [address] [place] [phone] PCP - General Family Medicine 02/22/23 documented as of this encounter
--- OUTSIDE RECORDS SUMMARY | 2023-11-01 15:51 | External Medical Summary | Summary of Care ---
Author Name Unknown Organization [facility] Address [address] [place] [address] Phone [phone] Care Team Providers Care Ship Engines Operating Engineer Name Role Phone Adan Muniz MD Primary Care Provide r Reason for Visit * Reason Onset Date Comments Information 10/26/2023 Encounter Details Date Type Department Care Team (Late st Contact Info) Description 10/26/2023 Telephone Gastroenterology, [facility] [address] [place] [facility] [place] [address] Arash Archuleta CRNP [address] [place] [facility] [place] [address] Information (/) Allergies Active Allergy Reactions Criticality Noted Date Comments Amoxicillin Rash 10/20/2017 Penicillins Rash High 10/20/2017 Other reaction(s): UNKNOWN Acetaminophen Nausea/vomiting,Othe r (Please comment),Rash 10/20/2017 Shortness of breath documented as of this encounter (statuses as of 10/26/2023) Medications Medication Sig Dispensed Refills Start Date End Date Status K Phos [place]-Sod Phos Di & [place] 155-852-130 MG Oral Tablet (K-Phos Neutral) Take [...] 11:10 AM EST Office Visit Family Medicine [address] [place] [address] [place] [address] 12/01/2023 12:00 PM EST Office Visit Gastroenterology , [facility] [address] [place] [address] Arash Archuleta CRNP [address] [place] [address] 12/05/2023 11:45 AM EST Hospital Encounter ENDO [facility], Endoscopy Room [facility] [address] [place] [phone] Isabelle De Guzman [address] [place] [address] 12/05/2023 11:45 AM EST - 12/05/2023 12:15 PM EST Surgery ENDO [facility], Endoscopy Room [facility] [address] [place] [phone] Isabelle De Guzman DO [address] [place] [address] ESOPHAGOGASTRODUODENOSCOPY (EGD), FLEXIBLE, TRANSORAL, DIAGNOSTIC 01/30/2024 2:40 PM EDT Office Visit Hepatology, [facility] [address] [place] [address] Isabelle De Guzman DO [address] [place] [address] Scheduled Procedures Name Priority Associated Diagnoses Date/Ti [...] and were consensually agreed upon. Care Teams Ship Engines Operating Engineer Relationship Specialty Start Date End Date Adan Muniz MD [address] [place] [address] [place] [phone] PCP - General Family Medicine 02/22/23 documented as of this encounter
--- OUTSIDE RECORDS SUMMARY | 2023-11-01 15:51 | External Medical Summary ---
Author Name Unknown Address Unknown Organization K01:LABORATORY [facility] [place] - [address] [facility] [address] Laboratory Report Ordering Provider Test Date Status ERIN HASSAN 10/25/2023 15:22:01 Correction Observation Date Value Abnormality Reference (Units ) Status BUN 10/25/2023 15:22:01 17 6-20 (mg/d L) Final Creatinine 10/25/2023 15:22:01 1.1 0.6-1.2 ( mg/dL) Correction Result corrected on dilution .
Changed result: Previously reported as 1.0 mg/dL on 10/26/2023 at 0035 EST. Glomerular filtration rate/1 .73 sq M.predicted [Volume Rate/Area] in Serum, Plasma or Blood by Creatinine-based formula (CKD-EPI) 10/25/2023 15:22:01 86 >=60 (mL/min) Correction eGFR is calculated based on the CKD-EPI 2020 equation
Changed result: Previously reported as >90 mL/min on 10/26/2023 at 0035 EST. SODIUM 10/25/2023 15:22:01 135 135-146 (m mol/L) Final Potassium 10/25/2023 15:22:01 3.2 Below lo w normal 3.5-5.1 (mmol/L) Final Cl 10/25/2023 15:22:01 101 98-107 (mm ol/L) Final CO2 10/25/2023 15:22:01 19 Below lo w normal 22-32 (mmol/L) Final Anion gap 10/25/2023 15:22:01 15 7-15 (mmol /L) Final Glucose 10/25/2023 15:22:01 95 70-120 (mg /dL) Final Albumin 10/25/2023 15:22:01 3.8 3.8-5.0 (g /dL) Final AST (Aspartate aminotransferase) 10/25/2023 15:22:01 73 Above high normal 10-50 (U/L) Final Alk Phos 10/25/2023 15:22:01 110 35-130 (U/ L) Final Bilirubin, Total 10/25/2023 15:22:01 45.0 Abov e high normal <=1.2 (mg/dL) Final Calcium 10/25/2023 15:22:01 8.6 8.4-10.2 ( mg/dL) Final Protein 10/25/2023 15:22:01 Correction Specimen to [facility]. Recolle ct if total protein is needed.

Changed result: Previously reported as 5.3 g/dL on 10/26/2023 at 0035 EST. ALT (Alanine aminotransferase) 10/25/2023 15:22:01 44 10-50 (U/L) Final Performing Location LABORATORY [facility] [place] - [address] [facility] [address]
--- OUTSIDE RECORDS SUMMARY | 2023-11-01 15:51 | External Medical Summary | Summary of Care ---
Author Name Unknown Organization [facility] Address [address] [place] [address] Phone [phone] Care Team Providers Care Direct Sales Professional Name Role Phone Adan Muniz MD Primary Care Provide r Reason for Visit * Reason Onset Date Comments FYI 10/21/2023 Encounter Details Date Type Department Care Team (Late st Contact Info) Description 10/21/2023 Telephone Family Medicine [address] [address] Adan Muniz MD [address] [place] [address] [place] [address] Allergies Active Allergy Reactions Criticality Noted Date Comments Amoxicillin Rash 10/20/2017 Penicillins Rash High 10/20/2017 Other reaction(s): UNKNOWN Acetaminophen Nausea/vomiting,Othe r (Please comment),Rash 10/20/2017 Shortness of breath documented as of this encounter (statuses as of 10/25/2023) Medications Medication Sig Dispensed Refills Start Date End Date Status K Phos [place]-Sod Phos Di & [place] 155-852-130 MG Oral Tablet (K-Phos Neutral) Take [...] encounter Miscellaneous Notes * Telephone Encounter - Janell Leslie OSA - 10/21/2023 3:40 PM EST Patient had start of care for home health today. Was just d/c from [facility] yesterday. documented in this encounter Plan of Treatment Upcoming Encounters Date Type Department Care Team (Latest Contact Info) Description 11/04/2023 11:10 AM EST Office Visit Family Medicine [address] [place] [address] Ailin Velazquez [address] [place] [address] 12/05/2023 11:45 AM EST Hospital Encounter ENDO [facility], Endoscopy Room [facility] [address] [place] [phone] Isabelle De Guzman DO [address] [place] [address] 12/05/2023 11:45 AM EST - 12/05/2023 12:15 PM EST Surgery ENDO [facility], Endoscopy Room [facility] [address] [place] [phone] Isabelle De Guzman DO [address] [place] [address] ESOPHAGOGASTRODUODENOSCOPY (EGD), FLEXIBLE, TRANSORAL, DIAGNOSTIC 01/30/2024 2:40 PM EDT Office Visit Hepatology, [facility] [address] [place] [address] Isabelle De Guzman DO [address] [place] [address] Scheduled Procedures Name Priority Associated Diagnoses Date/Ti ar ESOPHAGOGASTRODUODENOSCOPY ( EGD), FLEXIBLE, TRANSORAL, DIAGNOSTIC Alcoholic [...] and were consensually agreed upon. Care Teams Direct Sales Professional Relationship Specialty Start Date End Date Adan Muniz MD [address] [place] [address] [place] [phone] PCP - General Family Medicine 02/22/23 documented as of this encounter
--- OUTSIDE RECORDS SUMMARY | 2023-11-01 15:51 | External Medical Summary ---
Author Name Unknown Address Unknown Organization K01:LABORATORY [facility] [place] - [address] [facility] [place] [address] Laboratory Report Ordering Provider Test Date Status ERIN HASSAN 10/25/2023 15:22:01 Final Observation Date Value Abnormality Reference (Units ) Status SYNC LEUKOCYTES IN BLOOD BY AUTOMATED COUNT 10/25/2023 15:22:01 10.36 4.00-10.80 (K/uL) Final Segs 10/25/2023 15:22:01 83.4 Above high normal 40.0-75.0 (%) Final Lymphs % 10/25/2023 15:22:01 6.9 Below low normal 18.0-42.0 (%) Final Monos 10/25/2023 15:22:01 7.5 1.0-11.0 (%) Final Eosinophils 10/25/2023 15:22:01 1.2 0.0-6.0 (%) Final Basos 10/25/2023 15:22:01 0.3 0.0-2.0 (%) Final Immature Granulocyte, Percent 10/25/2023 15:22:01 0.7 0.0-2.0 (%) Final Absolute Segs 10/25/2023 15:22:01 8.65 Above high normal 1.80-7.70 (K/uL) Final Lymphs, absolute 10/25/2023 15:22:01 0.71 Below low normal 1.00-4.80 (K/ul) Final Monos, Abs 10/25/2023 15:22:01 0.78 0.00-1.10 (K/uL) Final Eos, Abs 10/25/2023 15:22:01 0.12 0.00-0.70 (K/uL) Final Basos, Abs 10/25/2023 15:22:01 0.03 0.00-0.20 (K/uL) Final Immature Granulocytes, Number 10/25/2023 15:22:01 0.07 0.00-0.20 (K/uL) Final Performing Location LABORATORY [facility] [place] - [address] [facility] [address]
--- OUTSIDE RECORDS SUMMARY | 2023-11-01 15:52 | External Medical Summary | Summary of Care ---
Author Name Unknown Organization [facility] Address [address] [facility] [address] Phone [phone] Care Team Providers Care Director Money Name Role Phone Adan Muniz MD Primary Care Provide r Encounter Details Date Type Department Care Team (Late st Contact Info) Description 10/06/2023 Result Scan Unspecified Department Jeanne Ruiz CRNP [address] [place] [address] <No scans attached> Allergies Active Allergy Reactions Criticality Noted Date Comments Amoxicillin Rash 10/20/2017 Penicillins Rash High 10/20/2017 Other reaction(s): UNKNOWN Acetaminophen Nausea/vomiting,Othe r (Please comment),Rash 10/20/2017 Shortness of breath documented as of this encounter (statuses as of 10/07/2023) Medications Medication Sig Dispensed Refills Start Date End Date Status K Phos Yell-Sod Phos Di & Yell 155-852-130 MG Oral Tablet (K-Phos Neutral) Take [...] as of this encounter (statuses as of 10/07/2023) Active Problems Problem Noted Date Diagnosed Date [...] as of this encounter (statuses as of 10/07/2023) Resolved Problems Problem Noted Date Diagnosed Date Resolved Date SBP (spontaneous bacterial peritonitis) 01/23/2019 02/22/2023 DVT (deep venous thrombosis) 01/21/2019 01/22/2019 Overview: In 2017 - treated for 3 months with AC Alcohol abuse 01/21/2019 08/16/2022 Coagulation defect 01/21/2019 2 Cellulitis, abdominal wall 01/21/2019 1 10/16/2021 Reflux esophagitis 01/15/2006 1 documented as of this encounter (statuses as of 10/07/2023) Immunizations Name Administration Dates Next Due DTaP [...] (Latest Contact Info) Description 10/25/2023 2:00 PM [facility] Office Visit Gastroenterology , [facility] [address] [place] [address] Arash Archuleta CRNP [address] [place] [address] 12/05/2023 11:45 AM [facility] Hospital Encounter ENDO [facility], Endoscopy Room [facility] [address] [place] [phone] Isabelle De Guzman, DO [address] [place] [address] 12/05/2023 11:45 AM EST - 12/05/2023 12:15 PM EST Surgery ENDO [facility], Endoscopy Room [facility] [address] [place] [phone] Isabelle De Guzman, DO [address] [place] [address] ESOPHAGOGASTRODUODENOSCOPY (EGD), FLEXIBLE, TRANSORAL, DIAGNOSTIC 01/30/2024 2:40 PM EDT Office Visit Hepatology, [facility] [address] [place] [address] Isabelle De Guzman, DO [address] [place] [address] Scheduled Procedures Name Priority Associated Diagnoses Date/Ti [...] Date/Time Associated Diagnosis Comments RADIOLOGY SCANNED RESULT 10/06/2023 documented in this encounter Results * RADIOLOGY SCANNED RESULT (10/06/2023) 10/06/2023 Jeanne Chanel Sara [facility] documented in this encounter Advance Directives Latest Code Status on File Code Status Date Activated Date Inactivated Comments Full Code 01/20/2019 11:57 PM 01/27/2019 6:54 PM This order reflects the patients wishes and were consensually agreed upon. Care Teams Director Money Relationship Specialty Start Date End Date Adan Muniz MD [address] [place] [address] [place] [phone] PCP - General Family Medicine 02/22/23 documented as of this encounter
--- OUTSIDE RECORDS SUMMARY | 2023-11-01 15:52 | External Medical Summary ---
Author Name Unknown Address Unknown Organization K0G:LABORATORY [facility] [place] - [address] [place] [address] Laboratory Report Ordering Provider Test Date Status ERIN HASSAN 10/25/2023 15:22:01 Final Warfarin Therapy
INR: 2 .0-3.0 conventional anticoagulation
INR: 2.5- 3.5 high intensity anticoagulation Observation Date Value Abnormality Reference (Units ) Status PT 10/25/2023 15:22:01 38.3 Above high normal 11 .6-15.2 (seconds) Final INR 10/25/2023 15:22:01 3.8 Above high normal 0. 8-1.2 Final Performing Location LABORATORY [facility] - [address] [place] [address]
--- OUTSIDE RECORDS SUMMARY | 2023-11-01 15:52 | External Medical Summary | Continuity of Care Document ---
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 Role Phone Adan Muniz Primary Care Physician [phone] [facility] [id number] Date(s): 10/11/23 - 10/19/[address] [id number] [phone] Encounter Diagnosis Septic shock due to Staphylococcus(Discharge Diagnosis) - 10/17/23 Acute hypoxemic respiratory failure(Discharge Diagnosis) - 10/11/23 Alcoholic cirrhosis(Discharge Diagnosis) - 10/11/23 Anemia due to alcoholism(Discharge Diagnosis) - 10/17/23 Acute hepatic encephalopathy(Discharge Diagnosis) - 10/17/23 Pneumonia due to Methicillin susceptible Staphylococcus aureus(Discharge Diagnosis) - 10/14/23 Other secondary thrombocytopenia(Discharge Diagnosis) - 10/17/23 Alcohol use(Discharge Diagnosis) - 10/17/23 Tobacco use(Discharge Diagnosis) - 10/17/23 Coagulopathy(Discharge Diagnosis) - 10/14/23 Discharge Disposition: Home w/ Home Health Care Attending Physician: MD Mariano Colleen M Admitting Physician: MD Vieira David Referring Physician: MD Block Aaron Samuel Allergies, Adverse Reactions, Alerts Substance Reaction Severity Status acetaminophen n/v, rash Active amoxicillin rash Active penicillins Skin rash Active acetylcysteine unknown Active Functional Status 10/19/23 Neurological Symptoms None ADLs Minimal assistance Facial Symmetry Symmetric Gait Unsteady Swallowing Difficulty None Level of Consciousness Neuro Alert Hallucinations Present None History of Fall in Last 3 Months Dia N o Presence of Secondary Diagnosis Dia Ye s Use of Ambulatory Aid Dia None/bedrest /nurse assist IV/Heparin Lock Fall Risk Dia Yes Gait/Transferring Fall Risk Dia Normal /bedrest/immobile Mental Status Fall Risk Dia Oriented t o own ability Dia Fall Risk Score 35 Dia Fall Risk Low Risk Speech Pattern Clear Medications folic acid 1 mg oral tablet Start: 10/11/23 10:32:00 EST, 1 tab, PO, Daily Start Date: 10/11/23 Status: Ordered HumaLOG Sliding Scale Ultra Low Dose Range: SSI, injection, subQ, 10/16/23 22:00:00 EST, 10/16/23 22:00:00 EST, Estimated correction need for patients using total insulin daily dose less than or equal to 30 units. Nursing to order low dose syringes from [facility] (see order comments)., ... Start Date: 10/16/23 Stop Date: 10/16/23 Status: Completed HumaLOG Sliding Scale Ultra Low Dose Range: SSI, injection, subQ, 10/17/23 4:00:00 EST, 10/17/23 4:00:00 EST, Estimated correction need for patients using total insulin daily dose less than or equal to 30 units. Nursing to order low dose syringes from [facility] (see order comments)., 0... Start Date: 10/17/23 Stop Date: 10/17/23 Status: Completed HumaLOG Sliding Scale Ultra Low Dose Range: SSI, injection, subQ, 10/17/23 22:00:00 EST, 10/17/23 22:00:00 EST, Estimated correction need for patients using total insulin daily dose less than or equal to 30 units. Nursing to order low dose syringes from [facility] (see order comments)., ... Start Date: 10/17/23 Stop Date: 10/17/23 Status: Completed lactulose 10 g/15 mL oral syrup Start: 10/19/23 13:22:00 EST, 45 mL, PO, q12h, Disp# 2,700 mL, Refills: 0, Pharmacy: [id number] Start Date: 10/19/23 Stop Date: 11/18/23 Status: Ordered Lasix 40 mg oral tablet Start: 10/11/23 10:28:00 EST, 1 tab, PO, Daily Start Date: 10/11/23 Status: Ordered midodrine 5 mg oral tablet Start: 10/19/23 13:23:00 EST, 2 tab, PO, With meals(0800,1200,1700), Disp# 180 tab, Refills: 0, Pharmacy: [id number] Start Date: 10/19/23 Stop Date: 11/18/23 Status: Ordered multivitamin Start: 10/11/23 10:46:00 EST, 1 tab, PO, Daily Start Date: 10/11/23 Status: Ordered pantoprazole 40 mg oral delayed release tablet Start: 10/11/23 10:46:00 EST, 1 tab, PO, Daily Start Date: 10/11/23 Status: Ordered Potassium Chloride (Fcl-Unnc-Rfc M20) 20 mEq oral tablet, extended release Start: 10/11/23 10:28:00 EST, 1 tab, PO, bid Start Date: 10/11/23 Status: Ordered rifAXIMin 550 mg oral tablet Start: 10/19/23 13:23:00 EST, 1 tab, PO, bid, Disp# 60 tab, Refills: 0, Pharmacy: [id number] Start Date: 10/19/23 Stop Date: 11/18/23 Status: Ordered spironolactone 100 mg oral tablet Start: 10/11/23 10:28:00 EST, 1 tab, PO, Daily Start Date: 10/11/23 Status: Ordered thiamine 100 mg oral tablet Start: 10/11/23 10:47:00 EST, 1 tab, PO, Daily Start Date: 10/11/23 Status: Ordered ure-Na 15 g oral powder for reconstitution Start: 10/11/23 10:46:00 EST, 15 g =, PO, bid Start Date: 10/11/23 Status: Ordered Mental Status 10/11/23 Communication Barrier Present Yes Primary Language Telugu Problem List Condition Confirmation Course Effective Dates Status H ealth Status Informant Alcoholic cirrhosis Confirmed Active Anemia due to alcoholism Confirmed Active Thrombocytopenia Confirmed Active Diagnosis Diagnosis Type Effective Dates Health Status Clinical Service Informant Alcoholic cirrhosis Discharge Diagnosis 10/11/23 Non-Specified Acute hypoxemic respiratory failure Discharge Diagnosis 10/11/23 Non-Specified Coagulopathy Discharge Diagnosis 10/14/23 Non-Specified Pneumonia due to Methicillin susceptible Staphylococcus aureus Discharge Diagnosis 10/14/23 Non-Specified Other secondary thrombocytopenia Discharge Diagnosis 10/17/23 Septic shock due to Staphylococcus Discharge Diagnosis 10/17/23 Anemia due to alcoholism Discharge Diagnosis 10/17/23 Acute hepatic encephalopathy Discharge Diagnosis 10/17/23 Alcohol use Discharge Diagnosis 10/17/23 Tobacco use Discharge Diagnosis 10/17/23 Results Laboratory List Name Date Phosphorus Level 10/19/23 Prothrombin Time w/ INR (PT/INR) 10/19/23 Complete Blood Count w Differential (CBC w Platelets and Diff) 10/19/23 Comprehensive Metabolic Panel (CMP) 10/19 Fibrinogen 10/19/23 Magnesium Level 10/19/23 Glucose Meter (GLUCOSE METER) 10/18/23 Glucose Meter (GLUCOSE METER) 10/18/23 Fibrinogen 10/18/23 Magnesium Level 10/18/23 Phosphorus Level 10/18/23 Prothrombin Time w/ INR (PT/INR) 10/18/23 Complete Blood Count w Differential (CBC w Platelets and Diff) 10/18/23 Comprehensive Metabolic Panel (CMP) Glucose Meter (GLUCOSE METER) 10/17/23 Fibrinogen 10/17/23 Magnesium Level 10/17/23 Phosphorus Level 10/17/23 Prothrombin Time w/ INR (PT/INR) 10/17/23 Complete Blood Count w Differential (CBC w Platelets and Diff) 10/17/23 Comprehensive Metabolic Panel (CMP) Added on Lab order 10/14/23 Haptoglobin 10/14/23 Pathologist Review Smear Panel (Peripher al Smear, Pathology Review) 10/14/23 Immature Platelet Fraction (IMM. PLT. FR ACTION) 10/14/23 Added on Lab order 10/14/23 Blood Type/Antibody Screen ( for possible transfusion) (Type and Screen (for possible transfusion)) 10/14/23 Iron Profile (IRON PROFILE) 10/14/23 Vitamin B12 Level (VITAMIN B12) 10/14/23 Arterial Blood Gases w/ Hgb and O2 Sat ( ABGs, w/ Hgb and O2 Sat) 10/13/23 Added on Lab order 10/13/23 Lactic Acid Level 10/12/23 Creatinine, Urine, Random (Urine Creatin ine, Random) 10/12/23 Urea Nitrogen, Urine, Random (Urine Urea Nitrogen, Random) 10/12/23 Arterial Blood Gases w/ Hgb and O2 Sat ( ABGs, w/ Hgb and O2 Sat) 10/12/23 Arterial Blood Gases w/ Hgb and O2 Sat ( ABGs, w/ Hgb and O2 Sat) 10/12/23 Lactic Acid Level 10/12/23 Complete Blood Count w Differential (CBC ,DIFFH) 10/12/23 Lactic Acid Level 10/12/23 Calcium, Ionized (Ionized Calcium) 4 Creatinine, Urine, Random (Urine Creatin ine, Random) 10/11/23 Osmolality, Urine 10/11/23 Urea Nitrogen, Urine, Random (Urine Urea Nitrogen, Random) 10/11/23 Sodium, Urine, Random 10/11/23 Creatinine, Urine, Random (CREATININE, R D URINE) 10/11/23 Miscellaneous Lab Order 10/11/23 Other Testing sent to [facility] (MISCELLANEOU S TEST 1) 10/11/23 Blood Type/Antibody Screen ( for possible transfusion) (Type and Screen (for possible transfusion)) 10/11/23 Partial Thromboplastin Time (PTT) 10/11/23 Urine Analysis, Microscopic Only (UA, Mi croscopic Only) 10/11/23 Venous Blood Gases (VBG Venous Blood Gas ) 10/11/23 Osmolality (OSMOLALITY) 10/11/23 Blood Type (ABO/Rh) (ABO/RH) 10/11/23 MRSA Surveillance (Nasal Swab) 10/11/23 Most recent to oldest [Reference Range]: 1 2 3 ABO/Rh O POSITIVE (10/14/23 5:43 AM) O POSITIVE (10/11/23 9:47 AM) O POSITIVE (10/11/23 9:43 AM) Antibody Scr NEGATIVE (10/14/23 5:43 AM) NEGATIVE (10/11/23 9:43 AM) Expires at 0600AM on 10/17/2023 (10/14/23 5:43 AM) 10/14/2023 (10/11/23 9:43 AM) # Units 1 (10/14/23 5:43 AM) 0 (10/11/23 9:43 AM) R Number NRQ (10/14/23 5:43 AM) NRQ (10/11/23 9:43 AM) eGFR CKD-EPI [>60 mL/min/1.73 m2] 84 mL/min/1.73 m2 (10/19/23 4:24 AM) 69 mL/min/1.73 m2 (10/18/23 3:08 AM) 52 mL/min/1.73 m2 *LOW* (10/17/23 3:31 AM) Haptoglobin, [30-200 mg/dL] <10 mg/dL *LOW* (10/14/23 8:38 AM) Blood Glucose [70-120 mg/dL] 133 mg/dL 1 *HI* (10/17/23 9:43 PM) 114 mg/dL 2 (10/17/23 3:35 AM) 116 mg/dL 3 (10/16/23 10:55 PM) Blood Glucose Ref Range [70 - 120 mg/dl] (10/11/23 8:57 PM) Request of Physician immature platelet f raction (10/14/23 8:39 AM) iron panel folate B12 (10/14/23 3:51 AM) fibrinogen (10/13/23 3:15 AM) Action Taken YES (10/14/23 8:39 AM) REQUESTED TESTS ADDED EXCEPT 4 (10/14/23 3:51 AM) Test NOT added because: 5 (10/13/23 3:15 AM) FiO2 (a) 40 % (10/13/23 10:50 AM) REQUEST CREDITED % 6 (10/12/23 7:46 AM) 40 % (10/12/23 7:46 AM) O2 Flow (a) REQUEST CREDITED L/m in 7 (10/12/23 7:46 AM) Smr (Path Rev) Technical portion co mplete. Interpretation to follow. (10/14/23 8:38 AM) Imm. Retics [5.0-25.0 %] 9.4 % (10/14/23 8:38 AM) Immature Plt Fraction [1.0-7.3 %] 3.5 % (10/14/23 8:38 AM) Acanthocytes FEW (10/18/23 3:08 AM) Macrocytes FEW (10/18/23 3:08 AM) FEW (10/14/23 8:38 AM) FEW (10/12/23 4:05 AM) Polychromasia INCREASED (10/18/23 3:08 AM) INCREASED (10/12/23 4:05 AM) Basophilic Stippling SLIGHT (10/18/23 3:08 AM) Platelet Morphology NORMAL (10/14/23 8:38 AM) NORMAL (10/12/23 4:05 AM) Source, Other WHOLE BLOOD SPECIMEN 8 (10/11/23 12:14 PM) Test Description 1 Phosphatidylethanol (PEth), Whole Blood, Quantitative [facility] [id number] (10/11/23 12:14 PM) Result 1 SEE NOTE 9 (10/11/23 12:14 PM) Retic Hgb [30.8-36.6 pg] 40.0 pg *HI* (10/14/23 8:38 AM) MPV [9.0-12.2 fL] 10.6 fL (10/19/23 4:24 AM) 10.5 fL (10/18/23 3:08 AM) 11.1 fL (10/17/23 3:31 AM) Immature Gran% 4.4 % (10/19/23 4:24 AM) 1.8 % (10/18/23 3:08 AM) 4.1 % (10/17/23 3:31 AM) Neut% 70.1 % (10/19/23 4:24 AM) 80.4 % (10/18/23 3:08 AM) 81.3 % (10/17/23 3:31 AM) Lymph% 11.6 % (10/19/23 4:24 AM) 9.8 % (10/18/23 3:08 AM) 5.1 % (10/17/23 3:31 AM) Nobles% 11.0 % (10/19/23 4:24 AM) 7.1 % (10/18/23 3:08 AM) 7.3 % (10/17/23 3:31 AM) Baso% 0.3 % (10/19/23 4:24 AM) 0.0 % (10/18/23 3:08 AM) 0.2 % (10/17/23 3:31 AM) Eos% 2.6 % (10/19/23 4:24 AM) 0.9 % (10/18/23 3:08 AM) 2.0 % (10/17/23 3:31 AM) Immat Gran, Abs [0-0.4 K/uL] 0.29 K/uL (10/19/23 4:24 AM) 0.41 K/uL *HI* (10/17/23 3:31 AM) Immat Gran, Abs [0.0-0.4 K/uL] 0.15 K/uL (10/18/23 3:08 AM) Neut, Abs [2.0-7.7 K/uL] 4.58 K/uL (10/19/23 4:24 AM) 6.49 K/uL (10/18/23 3:08 AM) 8.11 K/uL *HI* (10/17/23 3:31 AM) Lymph, Abs [1.0-3.4 K/uL] 0.76 K/uL *LOW* (10/19/23 4:24 AM) 0.79 K/uL *LOW* (10/18/23 3:08 AM) 0.51 K/uL *LOW* (10/17/23 3:31 AM) Nobles, Abs [0-1.0 K/uL] 0.72 K/uL (10/19/23 4:24 AM) 0.57 K/uL (10/18/23 3:08 AM) 0.73 K/uL (10/17/23 3:31 AM) Baso, Abs [0-0.1 K/uL] 0.02 K/uL (10/19/23 4:24 AM) 0.00 K/uL (10/18/23 3:08 AM) 0.02 K/uL (10/17/23 3:31 AM) Eos, Abs [0-0.5 K/uL] 0.17 K/uL (10/19/23 4:24 AM) 0.07 K/uL (10/18/23 3:08 AM) 0.20 K/uL (10/17/23 3:31 AM) Type of Diff: AUTO (10/19/23 4:24 AM) MANUAL (10/18/23 3:08 AM) AUTO (10/17/23 3:31 AM) RDW [11.5-14.2 %] 21.9 % *HI* (10/19/23 4:24 AM) 22.0 % *HI* (10/18/23 3:08 AM) 21.9 % *HI* (10/17/23 3:31 AM) Base Deficit 2.1 mmol/L (10/13/23 10:50 AM) REQUEST CREDITED mmol/L 10 (10/12/23 7:46 AM) 3.7 mmol/L (10/12/23 7:46 AM) Base Defic(v) 3.8 mmol/L (10/11/23 9:55 AM) Jocelyn pH REQUEST CREDITED uni t 11 (10/12/23 7:46 AM) Jocelyn pCO2 REQUEST CREDITED mmH g 12 (10/12/23 7:46 AM) Jocelyn pO2 REQUEST CREDITED mmH g 13 (10/12/23 7:46 AM) B Comments Second specimen for [facility] confirmation requested from: 10/11/2023 1011 (10/11/23 9:43 AM) Urea Nitro (u) 706 mg/dL 14 (10/12/23 11:03 AM) 496 mg/dL 15 (10/11/23 1:36 PM) Component RED CELLS (10/14/23 5:43 AM) RED CELLS (10/11/23 9:43 AM) Hyaline Casts (u) 50+ (10/11/23 9:55 AM) Squamous Epithelial Cells (u) FEW (10/11/23 9:55 AM) Transitional Epithelial Cells (u) FEW (10/11/23 9:55 AM) Mucous (u) FEW (10/11/23 9:55 AM) MRSA Surveillance, on Admission [MSND] MRSA NOT detected (10/11/23 9:41 AM) Anion Gap [5-14 mmol/L] 10 mmol/L (10/19/23 4:24 AM) 11 mmol/L (10/18/23 3:08 AM) 10 mmol/L (10/17/23 3:31 AM) Hgb(a) [12.0-18.0 g/dL] 8.1 g/dL *LOW* (10/13/23 10:50 AM) REQUEST CREDITED g/dL 16 (10/12/23 7:46 AM) 10.0 g/dL *LOW* (10/12/23 7:46 AM) Alb [3.5-5.2 g/dL] 3.4 g/dL *LOW* (10/19/23 4:24 AM) 4.0 g/dL (10/18/23 3:08 AM) 3.9 g/dL (10/17/23 3:31 AM) Alk Phos [40-130 unit/L] 71 unit/L (10/19/23 4:24 AM) 68 unit/L (10/18/23 3:08 AM) 75 unit/L (10/17/23 3:31 AM) ALT [0-41 unit/L] 16 unit/L (10/19/23 4:24 AM) 17 unit/L (10/18/23 3:08 AM) 23 unit/L (10/17/23 3:31 AM) AST [0-40 unit/L] 52 unit/L *HI* (10/19/23 4:24 AM) 44 unit/L *HI* (10/18/23 3:08 AM) 49 unit/L *HI* (10/17/23 3:31 AM) B12 [211-946 pg/mL] >1800 pg/mL *HI* (10/14/23 3:50 AM) Bact (u) [NONE-NONE] FEW *Abnormal* (10/11/23 9:55 AM) Base XS(a) REQUEST CREDITED mmo l/L 17 (10/12/23 7:46 AM) BUN [6-23 mg/dL] 18 mg/dL (10/19/23 4:24 AM) 21 mg/dL (10/18/23 3:08 AM) 28 mg/dL *HI* (10/17/23 3:31 AM) Ca [8.4-10.2 mg/dL] 8.6 mg/dL (10/19/23 4:24 AM) 9.0 mg/dL (10/18/23 3:08 AM) 8.7 mg/dL (10/17/23 3:31 AM) Ion Ca [1.15-1.27 mmol/L] 1.05 mmol/L *LOW* (10/11/23 8:45 PM) Cl- [98-107 mmol/L] 105 mmol/L (10/19/23 4:24 AM) 104 mmol/L (10/18/23 3:08 AM) 102 mmol/L (10/17/23 3:31 AM) HCO3 [22-29 mmol/L] 22 mmol/L (10/19/23 4:24 AM) 22 mmol/L (10/18/23 3:08 AM) 22 mmol/L (10/17/23 3:31 AM) Cret [0.70-1.30 mg/dL] 1.14 mg/dL 18 (10/19/23 4:24 AM) 1.35 mg/dL 19 *HI* (10/18/23 3:08 AM) 1.71 mg/dL 20 *HI* (10/17/23 3:31 AM) Iron [50-158 ug/dL] 117 ug/dL (10/14/23 3:50 AM) Fibr [208-435 mg/dL] 110 mg/dL *LOW* (10/19/23 4:24 AM) 116 mg/dL *LOW* (10/18/23 3:08 AM) 121 mg/dL *LOW* (10/17/23 3:31 AM) Glu [74-109 mg/dL] 95 mg/dL 21 (10/19/23 4:24 AM) 107 mg/dL 22 (10/18/23 3:08 AM) 125 mg/dL 23 *HI* (10/17/23 3:31 AM) Gluc Meter [74-109 mg/dL] 114 mg/dL *HI* (10/18/23 11:22 AM) 89 mg/dL (10/18/23 7:32 AM) 133 mg/dL *HI* (10/17/23 9:12 PM) HCO3(a) [21-28 mmol/L] 21.9 mmol/L (10/13/23 10:50 AM) REQUEST CREDITED mmol/L 24 (10/12/23 7:46 AM) 20.1 mmol/L *LOW* (10/12/23 7:46 AM) Hct [39-48 %] 21.7 % *LOW* (10/19/23 4:24 AM) 21.6 % *LOW* (10/18/23 3:08 AM) 22.1 % *LOW* (10/17/23 3:31 AM) Hgb [13.0-17.0 g/dL] 7.3 g/dL *LOW* (10/19/23 4:24 AM) 7.2 g/dL *LOW* (10/18/23 3:08 AM) 7.3 g/dL *LOW* (10/17/23 3:31 AM) INR [0.9-1.1] 3.4 25 *HI* (10/19/23 4:24 AM) 3.3 26 *HI* (10/18/23 3:08 AM) 3.1 27 *HI* (10/17/23 3:31 AM) K [3.5-5.1 mmol/L] 3.2 mmol/L *LOW* (10/19/23 4:24 AM) 3.6 mmol/L (10/18/23 3:08 AM) 3.7 mmol/L (10/17/23 3:31 AM) Lactate [0.5-2.2 mmol/L] 1.5 mmol/L (10/12/23 6:40 PM) 2.0 mmol/L (10/12/23 7:46 AM) 2.9 mmol/L *HI* (10/12/23 12:25 AM) MCH [28-33 pg] 37.2 pg *HI* (10/19/23 4:24 AM) 36.7 pg *HI* (10/18/23 3:08 AM) 36.5 pg *HI* (10/17/23 3:31 AM) MCHC [32-36 g/dL] 33.6 g/dL (10/19/23 4:24 AM) 33.3 g/dL (10/18/23 3:08 AM) 33.0 g/dL (10/17/23 3:31 AM) MCV [81-96 fL] 110.7 fL *HI* (10/19/23 4:24 AM) 110.2 fL *HI* (10/18/23 3:08 AM) 110.5 fL *HI* (10/17/23 3:31 AM) Mg [1.6-2.6 mg/dL] 1.8 mg/dL (10/19/23 4:24 AM) 2.0 mg/dL (10/18/23 3:08 AM) 2.0 mg/dL (10/17/23 3:31 AM) Na [136-145 mmol/L] 137 mmol/L (10/19/23 4:24 AM) 137 mmol/L (10/18/23 3:08 AM) 134 mmol/L *LOW* (10/17/23 3:31 AM) Test-Name PEth (10/11/23 12:14 PM) SaO2(a) [95.0-98.0 %] 100.9 % *HI* (10/13/23 10:50 AM) REQUEST CREDITED % 28 (10/12/23 7:46 AM) 101.3 % *HI* (10/12/23 7:46 AM) Osmolality [275-295 mOsm/kg] 313 mOsm/kg *HI* (10/11/23 9:55 AM) pCO2(a) [35-48 mmHg] 33.0 mmHg *LOW* (10/13/23 10:50 AM) REQUEST CREDITED mmHg 29 (10/12/23 7:46 AM) 31.0 mmHg *LOW* (10/12/23 7:46 AM) pH(a) [7.35-7.45 unit] 7.430 unit (10/13/23 10:50 AM) REQUEST CREDITED unit 30 (10/12/23 7:46 AM) 7.420 unit (10/12/23 7:46 AM) PO4 [2.5-4.5 mg/dL] 2.2 mg/dL 31 *LOW* (10/19/23 4:24 AM) 1.6 mg/dL 32 *LOW* (10/18/23 3:08 AM) 2.0 mg/dL *LOW* (10/17/23 3:31 AM) Plts [150-350 K/uL] 30 K/uL *LOW* (10/19/23 4:24 AM) 28 K/uL *Critical Low* (10/18/23 3:08 AM) 26 K/uL 33 *Critical Low* (10/17/23 3:31 AM) pO2(a) [83-108 mmHg] 117.0 mmHg *HI* (10/13/23 10:50 AM) REQUEST CREDITED mmHg 34 (10/12/23 7:46 AM) 106.0 mmHg (10/12/23 7:46 AM) PT [12.0-14.2 seconds] 34.9 seconds *HI* (10/19/23 4:24 AM) 34.4 seconds *HI* (10/18/23 3:08 AM) 32.1 seconds *HI* (10/17/23 3:31 AM) PTT [23-35 seconds] 33 seconds (10/11/23 10:09 AM) RBC [4.40-5.60 M/uL] 1.96 M/uL *LOW* (10/19/23 4:24 AM) 1.96 M/uL *LOW* (10/18/23 3:08 AM) 2.00 M/uL *LOW* (10/17/23 3:31 AM) Result & Ref REORDERED BY LAB 35 (10/11/23 12:14 PM) Retics (abs) [16.7-96.7 K/uL] 93.8 K/uL (10/14/23 8:38 AM) Retic (%) [0.40-2.05 %] 4.81 % *HI* (10/14/23 8:38 AM) Fe Sat [14-50 %] 113 % *HI* (10/14/23 3:50 AM) Smudge Cell [FEW] MODERATE *Abnormal* (10/12/23 4:05 AM) T Bili [0.0-1.2 mg/dL] 34.8 mg/dL *HI* (10/19/23 4:24 AM) 34.3 mg/dL *HI* (10/18/23 3:08 AM) 30.1 mg/dL 36 *HI* (10/17/23 3:31 AM) Temp(a) 36.7 C (10/13/23 10:50 AM) REQUEST CREDITED C 37 (10/12/23 7:46 AM) NOT PROVIDED C (10/12/23 7:46 AM) Total IBC [250-400 ug/dL] 104 ug/dL *LOW* (10/14/23 3:50 AM) Prot [6.4-8.3 g/dL] 4.7 g/dL 38 *LOW* (10/19/23 4:24 AM) 5.2 g/dL 39 *LOW* (10/18/23 3:08 AM) 5.2 g/dL 40 *LOW* (10/17/23 3:31 AM) Transferrin [200-360 mg/dL] 88 mg/dL *LOW* (10/14/23 3:50 AM) Creat (u) 69.40 mg/dL 41 (10/12/23 11:03 AM) Lab orders combined with other orders received on the same specimen. mg/dL 42 (10/11/23 1:37 PM) 53.62 mg/dL 43 (10/11/23 1:36 PM) Na (u) 42 mmol/L 44 (10/11/23 1:36 PM) Osmol (u) [100-1000 mOsm/kg] 346 mOsm/kg (10/11/23 1:36 PM) RBC (u) [0-4 /HPF] 30-49 /HPF (10/11/23 9:55 AM) WBC (u) [0-4 /HPF] 50+ /HPF (10/11/23 9:55 AM) Temp(v) NOT PROVIDED C (10/11/23 9:55 AM) HCO3(v) [24-28 mmol/L] 20.6 mmol/L *LOW* (10/11/23 9:55 AM) pCO2(v) [41-51 mmHg] 34.0 mmHg *LOW* (10/11/23 9:55 AM) pH(v) [7.33-7.43 unit] 7.390 unit (10/11/23 9:55 AM) pO2(v) 58.0 mmHg (10/11/23 9:55 AM) WBC [4.0-10.4 K/uL] 6.54 K/uL (10/19/23 4:24 AM) 8.07 K/uL (10/18/23 3:08 AM) 9.98 K/uL (10/17/23 3:31 AM) 1Result Comment: Performed at: [address] [place] [id number] 2Result Comment: Performed at: [address] [place] [id number] 3Result Comment: Performed at: [address] [place] [id number] 4Result Comment: FOL NO RED RECEIVED 5Result Comment: STABILITY EXCEEDED WHEN ORDER ADDED TO ORIGINAL ORDER 6Result Comment: DUPLICATE REQUEST 7Result Comment: DUPLICATE REQUEST 8Result Comment: EDTA 9Result Comment: Test name Result Flag Units RefIntvl PEth 16:0/18:1 (POPEth) 138 ng/mL PEth 16:0/18:1 (POPEth) Less than 10 ng/mL............Not detected Less than 20 ng/mL............Abstinence or light alcohol consumption 20 - 200 ng/mL................Moderate alcohol consumption Greater than 200 ng/mL........Heavy alcohol consumption or chronic alcohol use (Reference: Kaushik Ruth and Della Morris 2018 J. Forensic Sci) PEth 16:0/18:2 (PLPEth) 54 ng/mL Reference ranges are not well established. EER_Phosphatidylethanol See Note Authorized individuals can access the [employer] Enhanced Report using the following link: https://erpt.[employer]/?v=[email or web address] PEth Interpretation See Note Phosphatidylethanol (PEth) is a group of phospholipids formed in the presence of ethanol, phospholipase D and phosphatidylcholine. PEth is known to be a direct alcohol biomarker. The predominant PEth homologues are PEth 16:0/18:1 (POPEth) and PEth 16:0/18:2 (PLPEth), which account for 37-46% and 26-28% of the total PEth homologues, respectively. PEth is incorporated into the phospholipid membrane of red blood cells and has a general half-life of 4-10 days and a window of detection of 2-4 weeks. However, the window of detection is longer in individuals who chronically or excessively consume alcohol. The limit of quantification is 10 ng/mL. Serial monitoring of PEth may be helpful in monitoring alcohol abstinence over time. PEth results should be interpreted in the context of the patient's clinical and behavioral history. Patients with advanced liver disease may have falsely elevated PEth concentrations (Tigist SERRA et al 2018, Alcoholism Clinical \\T\\ Experimental Research). This test was developed and its performance characteristics determined by [facility]. It has not been cleared or approved by the [place]. Food and Drug Administration. This test was performed in a CLIA-certified laboratory and is intended for clinical purposes. Performed By: [facility] [address] [place] [id number] Sales Support Rep: Marquise Jacobo MD, PhD CLIA Number: [id number] 10Result Comment: DUPLICATE REQUEST 11Result Comment: DUPLICATE REQUEST 12Result Comment: DUPLICATE REQUEST 13Result Comment: DUPLICATE REQUEST 14Result Comment: Reference Range for Random Urine Not Established. 15Result Comment: Reference Range for Random Urine Not Established. 16Result Comment: DUPLICATE REQUEST 17Result Comment: DUPLICATE REQUEST 18Result Comment: ICTERIC SPECIMEN 19Result Comment: ICTERIC SPECIMEN 20Result Comment: ICTERIC SPECIMEN 21Result Comment: ADA recommendation for FASTING Serum/Plasma Glucose: Normal: 70-100 mg/dL Prediabetes: 100-125 mg/dL Diabetes: 126 mg/dL or higher 22Result Comment: ADA recommendation for FASTING Serum/Plasma Glucose: Normal: 70-100 mg/dL Prediabetes: 100-125 mg/dL Diabetes: 126 mg/dL or higher 23Result Comment: ADA recommendation for FASTING Serum/Plasma Glucose: Normal: 70-100 mg/dL Prediabetes: 100-125 mg/dL Diabetes: 126 mg/dL or higher 24Result Comment: DUPLICATE REQUEST 25Result Comment: Suggested therapeutic range for low-intensity Coumadin therapy for venous thromboembolism is INR 2.0-3.0 (ex: atrial fibrillation, history of TIA/stroke). For high risk patients, the suggested therapeutic range is INR 2.5-3.5 (ex: mechanical prosthetic valves). 26Result Comment: Suggested therapeutic range for low-intensity Coumadin therapy for venous thromboembolism is INR 2.0-3.0 (ex: atrial fibrillation, history of TIA/stroke). For high risk patients, the suggested therapeutic range is INR 2.5-3.5 (ex: mechanical prosthetic valves). 27Result Comment: Suggested therapeutic range for low-intensity Coumadin therapy for venous thromboembolism is INR 2.0-3.0 (ex: atrial fibrillation, history of TIA/stroke). For high risk patients, the suggested therapeutic range is INR 2.5-3.5 (ex: mechanical prosthetic valves). 28Result Comment: DUPLICATE REQUEST 29Result Comment: DUPLICATE REQUEST 30Result Comment: DUPLICATE REQUEST 31Result Comment: ICTERIC SPECIMEN 32Result Comment: ICTERIC SPECIMEN 33Result Comment: CONSISTENT WITH PREVIOUS RESULTS 34Result Comment: DUPLICATE REQUEST 35Result Comment: Phosphatidylethanol (PEth), Whole Blood, Quantitative to [facility] [id number] 36Result Comment: CHECKED 37Result Comment: DUPLICATE REQUEST 38Result Comment: ICTERIC SPECIMEN 39Result Comment: ICTERIC SPECIMEN 40Result Comment: ICTERIC SPECIMEN 41Result Comment: Reference Range for Random Urine Not Established. 42Result Comment: REQUEST CREDITED 43Result Comment: Reference Range for Random Urine Not Established. 44Result Comment: Reference Range for Random Urine Not Established. Orders for Microbiology Reports Name Date Respiratory Culture w Smear 10/11/23 Respiratory Pathogen Panel, by PCR (RVP) 10/11/23 Blood Culture (Aerobic AND Anaerobic) 10/11/23 Blood Culture (Aerobic AND Anaerobic) 10/11/23 Urine Culture 10/11/23 Microbiology Reports TEST:Resp.Cx STATUS:Auth (Verified) BODY SITE: SOURCE:Roman Bronchial Asp. COLLECTED DATE/TIME:10/11/23 1:43 PM Status FINAL 10/13/2023 ORGANISM:Staphylococcus aureus TEST:Respiratory Virus Panel, by PCR STATUS:Modified/Amended/Corrected BODY SITE: SOURCE:Bronchoalveolar Lavage COLLECTED DATE/TIME:10/11/23 1:43 PM Multiplex PCR Negative for: Severe Acute Respiratory Syndrome Coronavirus (SARS-CoV-2/COVID-19), Influenza A and B, Adenovirus, Bordetella pertussis, Bordetella parapertussis, Chlamydophila pneumoniae, Coronavirus (229E,HKU1,NL63,OC43), Human metapneumovirus, Mycoplasma pneumoniae, Parainfluenza Types 1,2,3, and 4, Respiratory syncytial virus, and Rhinovirus/Enterovirus. This test was developed and its performance characteristics determined by [facility]. It has not been cleared or approved by the US Food and Drug Administration. FDA has determined that such clearance or approval is not necessary. TEST:Blood.Cx STATUS:Auth (Verified) BODY SITE: SOURCE:Blood COLLECTED DATE/TIME:10/11/23 12:15 PM Status FINAL 10/16/2023 TEST:Blood.Cx STATUS:Auth (Verified) BODY SITE: SOURCE:Blood COLLECTED DATE/TIME:10/11/23 12:13 PM Status FINAL 10/16/2023 TEST:Urine.Cx STATUS:Auth (Verified) BODY SITE: SOURCE:Urine COLLECTED DATE/TIME:10/11/23 9:55 AM Status FINAL 10/12/2023 Radiology Reports * Exam Date Time Procedure Performing Provider Status 10/13/23 3:32 PM VL Art/Vein Abd/Pelvis/Scrotal Complete Roopa Singh; Final Notes: (VL Art/Vein Abd/Pelvis/Scrotal Complete) Reason For Exam: cirrhosis VL Art/Vein Abd/Pelvis/Scrotal Complete [facility] FINAL REPORT Name: BETSY HANSEN : 1985 Visit: [id number] Date: 13 Oct 2023 TYPE OF TEST: Abdominal Venous Duplex REASON FOR TEST Cirrhosis INTERPRETATION/FINDINGS Duplex exam of the hepatoportal vascular system reveals: 1. Retrograde flow in the portal vein of uncertain etiology. The main portal vein is dilated measuring 15.0 mm. 2. The proximal inferior vena cava is patent with normal flow direction. 3. The right and mid hepatic veins are patent with normal flow direction. Unable to visualize left hepatic vein. 4. Normal flow direction in the splenic mesenteric vein. Unable to visualize the superior mesenteric vein due to overlying bowel gas. 5. No evidence of significant stenosis in the celiac and hepatic arteries. 6. The liver measures approximately 13.9 cm. 7. Splenomegaly measuring approximately 15.2 cm. Sharon Hdez notified of technologist's preliminary findings at 12:15 on 10/13/23, read back and verified. No prior exam available for comparison. IMPRESSION/COMMENTS I have personally reviewed the data relevant to the interpretation of this study. TECHNOLOGIST: Roopa Singh, RVT PHYSICIAN: Kennedy Banks MD Signed: 10/13/2023 04:50 PM Final Dictated by:MD Banks Aditya Dictated DT/TM:10/13/2023 4:50 Signed by:MD Banks Aditya Signed (Electronic Signature):10/13/2023 4:50 p Transcribed by: * Exam Date Time Procedure Performing Provider Status 10/13/23 1:34 AM XR Abdomen 1 View Janeth Wild; Final Notes: (XR Abdomen 1 View) Reason For Exam: replace post-pyloric feeding tube XR Abdomen 1 View EXAMINATION: XR Abdomen 1 View CLINICAL HISTORY: replace post-pyloric feeding tube will call when tube in place. COMPARISON: Multiple priors most recently CT dated 10/12/2023 FINDINGS: Collimated AP supine abdominal radiograph : Feeding tube and enteric tube tips terminating in gastric fundus. Small amount of air seen within stomach. Air-filled mildly distended loop of colon along the inferior margin of examination. Study isnot optimized to evaluate for pneumoperitoneum. Streaky opacities at the lung bases. Probable smallbilateral pleural effusions. IMPRESSION: Feeding and enteric tube tips terminate in the gastric fundus. Workstation ID: [id number] Final Dictated by:MD Norman Jacob A Dictated DT/TM:10/13/2023 11:44 Signed by:MD Norman Jacob A Signed (Electronic Signature):10/13/2023 11:43 * Exam Date Time Procedure Performing Provider Status 10/12/23 8:[address] Angio Abdomen and Pelvis Elana Walter; Final Notes: (CT Angio Abdomen and Pelvis) Reason For Exam: colonic distention and possible pneumatosis in cecum CT Angio Abdomen and Pelvis EXAMINATION: CT Angio Abdomen and Pelvis CLINICAL HISTORY: Colonic distention and possible pneumatosis in cecum COMPARISON: Radiograph 10/11/2023 TECHNIQUE: CT abdomen pelvis without and with oral and IV contrast. Coronal and sagittal reconstruction. MIP reconstruction and 3-D reconstruction was performed. CONTRAST: Omnipaque 350 DOSE: Total Reported Dose Length Product (DLP) = 2057 mGy.cm FINDINGS: CTA: Normal course and caliber of the aorta. Patent celiac, SMA, KENNEDY and bilateral renal arteries. No aneurysm. No dissection. No significant atherosclerotic disease. No contrast extravasation. Lower chest: Bilateral lower lobe airspace opacity, likely atelectasis. No pleural effusion. Top normal heart size. No pericardial effusion. Liver, Gallbladder \\T\\ bile ducts: No nodular liver contour. Large perigastric varices. Nondistended gallbladder. Cholelithiasis. No bile duct dilation. Pancreas: Pancreas is normal in size and contour. No focal mass. No inflammatory changes. Spleen: Enlarged spleen at 14 cm Adrenals: Unremarkable Kidneys, collecting system and ureters: No renal stone. No hydronephrosis. Symmetric enhancement. Retroperitoneum, lymph nodes, and vessels: No retroperitoneal lymphadenopathy. Bowel \\T\\ Mesentery: There is contrast from rectal catheter. Contrast filled the large bowel. Thereis fecal content within the cecum. No pneumatosis. Normal appendix. No small bowel obstruction. Feeding tube loops within the stomach, tip at the fundus. Pelvis Bladder: Collapsed about the Sanchez catheter. Reproductive organs: Unremarkable Extraperitoneal, lymph nodes, vessels: No lymphadenopathy Osseous and body wall: No acute osseous lesion. Moderate fat-containing umbilical hernia. IMPRESSION: 1. No pneumatosis. No bowel obstruction. 2. No acute aortic syndrome. No contrast extravasation. 3. Cirrhotic liver morphology with portal hypertension in the form splenomegaly and gastric varices. 4. Feeding tube loops in the stomach, tip at the fundus. Workstation ID: [id number] Final Dictated by:MD Hernandez Nhien T Dictated DT/TM:10/12/2023 10:03 Signed by:MD Hernandez Nhien T Signed (Electronic Signature):10/12/2023 10:02 * Exam Date Time Procedure Performing Provider Status 10/12/23 4:29 PM XR Abdomen 1 View Supriya Witt; Final Notes: (XR Abdomen 1 View) Reason For Exam: NG/NJ Fit/Adjust Nonvascular Cath XR Abdomen 1 View EXAMINATION: XR Abdomen 1 View CLINICAL HISTORY: NG/NJ Fit/Adjust Nonvascular Cath COMPARISON: abdomen and chest xray 10/11/2023 FINDINGS: NG tube tip in the left upper quadrant stomach. Keofeed tube curls in the stomach, tip near the cardia. New gaseous distention of the colon and small bowel with possible pneumatosis of the cecum. Airspace disease at the lung bases. No acute bony findings. IMPRESSION: New gaseous distention of the colon with possible pneumatosis of the cecum. Keofeed tube curls in the stomach, tip near the cardia. Workstation ID: [id number] Final Dictated by:MD Ruggiero Kathryn L Dictated DT/TM:10/12/2023 4:35 Signed by:MD Ruggiero Kathryn L Signed (Electronic Signature):10/12/2023 4:34 p * Exam Date Time Procedure Performing Provider Status 10/11/23 12:[address] Head Consult IrislorenaemperatrizJeromy ; Final Notes: (OO CT Head Consult) Reason For Exam: Encephalopathy OO CT Head Consult EXAMINATION: OO CT Head Consult CLINICAL HISTORY: Encephalopathy COMPARISON: None TECHNIQUE: Routine tomographic images of the brain are obtained from the skull base to the vertex without the use of intravenous contrast, coronal and sagittal reconstructions. FINDINGS: This is an outside CT exam submitted by the clinical team for secondary interpretation. Cerebral parenchyma: No acute intraparenchymal hemorrhage. No acute territorial infarct. Norman-whitedifferentiation is maintained. Extra-axial spaces: No extra-axial collection. Ventricles: Unremarkable. Mass effect: None. Posterior Fossa: Normal position of the cerebellar tonsils. Asymmetric hypodensity along the posterior aspect of the right middle cerebellar peduncle is likely related to beam hardening artifacts. Calvarium: Unremarkable Visualized paranasal sinuses/mastoids: Clear IMPRESSION: No CT evidence of acute intracranial abnormality. Apparent hypodensity in posterior aspect of right middle cerebellar peduncle is likely related to beam hardening artifacts. If patient has posterior fossa symptoms, MRI of the brain may be obtained. [place] Act 112: This study does not meet the requirements of [place] Act 112. Workstation ID: [id number] Final Dictated by:MD Hidalgo Puneet S Dictated DT/TM:10/11/2023 12:49 Signed by:MD Hidalgo Puneet S Signed (Electronic Signature):10/11/2023 12:48 * Exam Date Time Procedure Performing Provider Status 10/11/23 12:04 PM US Abdomen Complete Yordan Mcfarlane; Final Notes: (US Abdomen Complete) Reason For Exam: cirrhosis US Abdomen Complete EXAMINATION: US Abdomen Complete CLINICAL HISTORY: are there large pockets ascites, focal liver lesions cirrhosis COMPARISON: None FINDINGS: PANCREAS: The visualized portion of the pancreas is unremarkable. LIVER: Normal size, nodular contour, and echogenicity. No solid mass is seen. Length: 13.7 cm. GALLBLADDER AND BILE DUCTS: Bile ducts: No biliary dilation. Common bile duct: 5 mm. Gallbladder: Normal. Right kidney: Normal in size, shape, and echogenicity. Renal cortical thickness is maintained. No hydronephrosis. Right kidney length: 12.7 cm. Left kidney: Not visualized SPLEEN: Top normal in size. Longest splenic length: 12.7 cm. AORTA/IVC: The IVC and aorta are normal in caliber where visualized. OTHER: Trace perihepatic free fluid. ORGAN VASCULATURE: Reversal of flow in the portal vein, which is phasic. Peak velocity of 35 cm/s. Measures 1.1 cm in diameter. To and fro direction of flow is visualized in the splenic vein. IMPRESSION: 1. Cirrhotic morphology of the liver without focal mass identified. 2. Trace perihepatic ascites. 3. Splenomegaly. 4. Reversal of flow in the portal vein, with to-and-fro direction of flow in the splenic vein. Ultrasound LI-RADS category and visualization score: Category: 1 - negative Visualization: A - no or minimal limitations [place] Act 112: This study does not meet the requirements of [place] Act 112. Workstation ID: [id number] Final Dictated by:MD Ruggiero Kathryn L Dictated DT/TM:10/11/2023 12:31 Signed by:MD Ruggiero Kathryn L Signed (Electronic Signature):10/11/2023 12:30 * Exam Date Time Procedure Performing Provider Status 10/11/23 10:55 AM XR Abdomen 1 View Isabelle Christian; Final Notes: (XR Abdomen 1 View) Reason For Exam: verify OGT placement XR Abdomen 1 View EXAMINATION: XR Abdomen 1 View CLINICAL HISTORY: verify OGT placement COMPARISON: None FINDINGS: Single view limited to the upper abdomen reveals NG tube in the proximal stomach with the port in the cardia. Limited views of the bowel gas pattern normal. IMPRESSION: NG tube within the proximal stomach. Workstation ID: [id number] Final Dictated by:MD Wetzel Seth Millard Dictated DT/TM:10/11/2023 10:58 Signed by:MD Wetzel Seth Millard Signed (Electronic Signature):10/11/2023 10:57 * Exam Date Time Procedure Performing Provider Status 10/11/23 10:55 AM XR Chest 1 View Isabelle Christian; Final Notes: (XR Chest 1 View) Reason For Exam: intubation from OSH, confirm ETT, RIJ CVC, assess lung fxn XR Chest 1 View EXAMINATION: XR Chest 1 View CLINICAL HISTORY: intubation from OSH, confirm ETT, RIJ CVC, assess lung fxn COMPARISON: None available. FINDINGS: Portable supine chest. Endotracheal tube tip 3.8 cm above the candis. Gastric tube visualized to the proximal stomach, tip excluded. Right IJ central catheter tip lower SVC near the superior cavoatrial junction. Partially obscured cardiac silhouette. Normal pulmonary vasculature. Hypoinflation withbibasilar streaky airspace opacities. No large pleural effusion. No pneumothorax. No acute osseous abnormality. IMPRESSION: 1. Endotracheal tube tip 3.8 cm above the candis. 2. Hypoinflation with bibasilar opacities favoring atelectasis. Differential includes aspiration and pneumonia. Workstation ID: [id number] Final Dictated by:DO Osullivan Matthew D Dictated DT/TM:10/11/2023 11:10 Signed by:DO Osullivan Matthew D Signed (Electronic Signature):10/11/2023 11:09 Vital Signs Most recent to oldest [Reference Range]: 1 2 3 Patient Weight 112.1 kg (10/19/23 4:37 AM) 112.4 kg (10/18/23 6:10 AM) 112.0 kg (10/16/23 2:00 AM) Temperature [36.5-37.9 DegC] 36.9 DegC (10/19/23 11:53 AM) 37 DegC (10/19/23 8:45 AM) 36.7 DegC (10/19/23 4:11 AM) Heart Rate 93 bpm (10/19/23 12:00 PM) 94 bpm (10/19/23 12:00 PM) 91 bpm (10/19/23 11:53 AM) Respiratory Rate 16 br/min (10/19/23 12:00 PM) 16 br/min (10/19/23 12:00 PM) 16 br/min (10/19/23 11:53 AM) Blood Pressure 119/72mmHg (10/19/23 11:53 AM) 125/71mmHg (10/19/23 8:45 AM) 123/73mmHg (10/19/23 4:11 AM) Mean Blood Pressure 85 mmHg (10/19/23 11:53 AM) 87 mmHg (10/19/23 8:45 AM) 88 mmHg (10/19/23 4:11 AM) Cuff Pulse Pressure 47 mmHg (10/19/23 11:53 AM) 54 mmHg (10/19/23 8:45 AM) 50 mmHg (10/19/23 4:11 AM) BP Location # 1 Left Arm, Non-invasive (10/19/23 11:53 AM) Left Arm, Non-invasive (10/19/23 8:45 AM) Left Arm (10/19/23 4:11 AM) Social History Social History Type Response Smoking Status Unknown if ever smok ed Sex Male History and physical note * MD Vieira David: MODIFY MD Vieira David: MODIFY, MODIFY, MODIFY, MODIFY, MODIFY, MODIFY, MODIFY, MODIFY, MODIFY Event Display: H&P Authored Date: Name:BETSY HANSEN Patient Number:[id number] :1985 Date of Service:10/11/2023 MICU Admission H & P Chief Complaint Transfer from OSH for liver transplant workup following acute encephalopathy requiring intubation History of Present Illness Per review of outside records, patient presented to [facility] emergency room around midnight morning of 10/11/23. Per EMS the patient had been picked up at home at which point he was awake, disoriented, believing to be walking around the law, and not re-directable. Upon arrival to the ED he was barely protecting his own narrow airway and not responsive even to deep painful stimuli, therefore he was intubated following RSI. He had a RIJ CVC and sanchez catheter placed. 2L NS bolus was given for hypotension/tachycardia, although he was hypertensive later in the visit. He was sedated on fentanyl and propofol drips, then later transported on ketamine. He was hypothermic at 35.9 at OSH. Since he had been recently admitted to hospitalized at [facility] September 27 and for acute decompensation of liver cirrhosis, he was deemed appropriate for emergent transfer to a liver transplant facility. At the OSH diagnostics were as follows: CT brain without evidence of acute intracranial abnormality. CXR demonstrated mild left basilar airspace opacity, and appropriate positioning of ETT/NGT/RIJ.Ammonia was found to be 312, T. bili 23, lactic 5.7. BUN 30, creatinine 1.52. CO2 20. Alk phos 231, AST 84, ALT 108. Ethanol less than 3. Triglycerides 152. Troponin high-sensitivity 14ng/L (<78 normal cutoff). INR 2.2. WBC 16.3, Hgb 11.5, platelets 66. Negative flu A, flu B, COVID. Acetaminophen and salicylate negative. UA negative for ketones, negative nitrite and leuk esterase. Upon arrival to [facility] ED, he received LR x1, rainbow labs, CXR, and sanchez exchanged. He washypotensive so was started onnorepinephrine drip. His sedation was paused for about 1 hours,and resumed after he was trying to sit up inbed and was tachypneic/tachycardic. Discussed in person with hepatology and transplant teams.Labs here wereNa 135, Anion Gap 15, BUN 34, Kiln Stacker 1.77, glucose 81, mg 2.1, phos 5.8. INR 2.2. Lactate 2.8. ALT 93, T bili 23.8, Alk phos 169, AST 82. 7.39/34/58/20 on 50%. Head CT uploaded for over-read. No family have been present. His discharge paperwork from [facility] indicate he wassent home on Lasix 40 mg daily, spironolactone 100 mg QAM, pantoprazole 40mg daily, prednisolone 40 mg daily, folic acid 1mg daily, MVI 1 tab daily, potassium chloride 20meq PO BID, and fluid restriction 1.5 L/day. [facility] and distribution lineman Dr. German Marroquin. Notably his records indicated multiple no shows for hepatology appointments. It is reported he drinks beers 1-2 times per week. Interviewed patient's girlfriend this evening with the following details and corrections. She reports he stopped drinking completelyseveral months ago and went through a period of withdrawal where he was only drinking a couple large beers a day before ceasing completely. He is a former cigarette smoker, currently only using one nicotine vape device (cartridge?) per month. She reports he has been getting jaundiced for about 1 month. 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 He left AMA from [facility], but thinks he was taking his medications as prescribed, including steroid, and diuretics. Evening of admission, he reported fatigue, but otherwise in normal state of health, until he became progressively confused culminating in the call to EMS. Review of Systems unable to review secondary to intubation, sedation, encephalopathy Physical Exam Vitals & Measurements T:35.6C TMIN:35.0C TMAX:35.6C HR:109(Monitored) RR:13 BP:96/43 SpO2:97% FIO2:50(%) Oxygen Therapy:Ventilator WT:106.000kg(Dosing) WT:106kg CONST: No acute distress, sedated on MV HENT: Normal cephalic, atraumatic, Pupils equal and round 2mm sluggish, yellow sclera but no edema CV: RRR, S1-S2, no murmurs, skin warm, cap refill3-4 seconds. HR 110. SBP 105, initially on 0.08 of norepinephrine. RESP: CTA throughout, breathing non-labored, synchronous with ventilator,symmetrical chest expansion,on PC 12/8, P8, RR12, 50%. GI: Soft, no grimace to palpation, no organomegaly, somewhat distended, no masses MSK: No gross deformities appreciated,trace peripheral edema SKIN: cool extremities, dry, no rashes noted; pronounced jaundice. No spider angiectasis. NEURO: initially nearly unresponsive even to painful stimuli, but later sitting up in bed after sedation vacation. no focal deficits, not following commands. PSYCH: deferred. Assessment/Plan A38 yearoldMalewith a PMH of alcoholic cirrhosis, esophageal varices, SBP diagnosed 2019,esophageal portal hypertensive gastropathy, who presented at OSH with worsening mental status culminating inintubation for airway protection and transferred to [facility] for liver transplant workup.On arrival, he was started on norepinephrine dripbut rapidly required vasopressin as well. NEURO: #acute encephalopathy -Differentials include hyperammonemia, hepatic encephalopathy, dehydration, infectious/septic shock, stroke/ICH, hypoglycemia -CT brain OSH reported without acute abnormality, over-read pending -ammonia at OSH reported 312 -s/p 4L IVF resuscitation (2L OSH) -glucoses 70's -lactulose 30g q6h and rifaximin 550mg BID via gastric tube -consult hepatology and Liver transplant team for workup - discussed in person -see ID for workup and abx -thiamine 500mg IV q8 given potential for Wernicke's CV: #tachycardia #acute shock, undifferentiated tachycardia differentials includehypovolemia, infection, agitation shock differentials include hypovolemia, infection/sepsis, propofol induced (worsened with increased doses) -s/p 4L IVF as above, consider albumin if further resuscitation warranted -norepinephrine andvasopressin drips, titrate for MAP >65 -arterial line placed for accurate hemodynamics -worsening shock upon arrival to [facility], presumed septic etiology -initiate stress dose hydrocortisone, fludrocortisone -Cardiac POCUS appears with grossly normal LV/RV function, so cardiogenic/obstructive pathology unlikely -initiate broad spectrum abx given shock, see ID PULM: #acuterespiratory failure,intubated for airway protection #Possible acute aspiration pneumonia vs. CAP -MV settings as above. Increased Pinsp to 20 d/t flow hunger noted on ventilator waveforms, appropriate decrease in RR -follow up VBG acceptable (7.39/35, prior to above changes) -CXR at [facility] with bibasilar hypoinflation suspicious for aspiration vs. pneumonia -thick secretions noted -mini-BAL/sputum cx -daily SBT/SAT in AM -see ID GI/FEN: #alcohol associated cirrhosis, acute on chronic #Hx esophageal varices #Hx SBP -recent admissions and at least in 2019 for liver disease, apparently not following up; transferredto [facility] for liver transplant workup. Was not on suppression abx at home. -hepatology and liver transplant team consulted -US liver and complete abdomen eval for focal liver lesions, ascites and portal vasculature as recommended by hepatology/transplant --> "Cirrhotic morphology of the liver without focal mass identified. 2. Trace perihepatic ascites. 3. Splenomegaly. 4. 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, 1.2 09/28, apparently has OP distribution lineman -Kiln Stacker 1.52 at OSH, 1.77 on arrival -s/p 4L IVF resuscitation, continue to treattreat shock -avoid nephrotoxic agents -FEUrea 21% suggestive of prerenal etiology secondary to shock, possible hypovolemia -no hydronephrosis on abdominal US #Lactic acidosis #Anion Gap acidosis -lactic 5.7 OSH, down to 2.8 here, 2.8, recheck pending -AG 15 here -differentials includeseptic or hypovolemic shock -fluid resuscitation as above -delta/delta 3/4 suggestive of additional NAGMA, no clear cause - follow AG -500mL albumin x1 d/t lactic not improving ID: #Leukocytosis #Presumed Septic Shock -WBC23 on admission, on 2 pressors -unclear source -sent UAc, blood cx x2, sputum/miniBAL. MRSA swab negative -RVP -initiate broad spectrum antibiotics: cefepimerenally dosed 1g q8h (pcn allergy), metronidazole -documented SBP in 2018,not on suppression abx. No amenable ascitic fluid pocket for paracentesis -considerlumbar puncture and/or viral encephalopathy workup if does not improve rapidly withlactulose/rifaximin. HEM/ONC: #thrombocytopenia, chronic -in 's inJuly and on admission -presumed secondary to chronic cirrhosis -monitor daily ENDO: -no acute issues -Q6h accuchecks/very low SSI to monitorglucoses giveninitiation of stress dose steroids. CHRONIC CONDITIONS: - hx DVT, previously on warfarin (not noted in transfer records)- monitor LINES/TUBES: Sanchez: 10/11/2023 Indwelling RIJ CVC - placed 10/11/23 OSH ETT - intubated 24 OSH Level of Consciousness Neuro: Comatose Neurological Symptoms: Other: TJ ADLS: Complete assist Basic Skin Assessment: Jaundiced, Warm, Dry Prophylaxis: -Aspiration precautions. -Enteral nutrition - c/s nutrition for TF -DVT prophylaxis - pharm PPx contraindicated d/t coagulopathy/thrombocytopenia (mild), and possibleplan for paracentesis / SCDs. -GI prophylaxis - pantoprazole 40mg IV BID. -Glycemic control, goal glucoses 150-180 per SCCM guideline recommendations. -PT/OT evaluation and treat. -Progressive mobility when appropriate Disposition: ICU level of care CODE STATUS:Full Code Primary Contact:Dayanna [phone]. Father Catalina Hansen [phone]. Attestation Attending Attestation I have seen and examined the patient. I have discussed management with the PRACHI and agree with the assessment and plan as written, except where noted below: 38 y/o male, hx of cirrhosis 2/2 EtOH, who presents as a transfer for evaluation of acute on chronic liver failure with associated encephalopathy and shock. Note recent history of admission for alcoholic hepatitis, on prednisolone. On exam intubated, sedated,mild crackles atleft base, with 2+ edema of legs. Problem List -Acute hypoxemic respiratory failure -Shock, septic vs distributive in the setting of liver failure -Encephalopathy, suspect hepatic -FELI -Cirrhosis, recent alcoholic hepatitis Plan -Vent support pending improvement in mental status, hemodynamic stability -Norepi, vasopressin to maintain MAP >65 -Stress dose hydrocortisone, fludrocortisone -Vancomycin, cefepime, metronidazole -Lactulose, rifaximin -High dose thiamine repletion -BCx, UCx, sputum cultures -Hepatology consulted The patient is critically ill withacute respiratory failure, shock. Atif Vieira MD Pulmonary/Critical Care Attending Critical Care Shared/Split Visit: The TAPE RECORDER REPAIRER/PA,Ambrose ValenciaWcsluCUTAmrdjk20 minutesof discrete time performing the activities of this visit. The attending physician Atif Vieira MD spent28 minutes of discrete time performing the activities of this visit. Overlapping/joint timeis 5minutes. Problem List/Past Medical History Alcoholic cirrhosis, esophageal varices, SBP diagnosed 2018, esophageal portal hypertensive gastropathy, remote history of DVT previously on 3 months of warfarin (not confirmed on OSH records). Medications Inpatient folic acid, 1 mg= 1 tab, PO, Daily lactulose, 30 g= 45 mL, PO, q6h multivitamin, 1 tab, G-tube, Daily mupirocin topical(mupirocin 2% nasal ointment), 1 appl, each nostril, bid norepinephrine 4 mg + Sodium Chloride 0.9% 250 mL(norepinephrine for infusion 4 mg + sodium chloride 0.9% (vasoactive drips) 250 mL), 250 mL, Rate: titrate, Order Calculation Weight: 106 kg, Target Parameter: MAP - greater than 65, Start at 0.02 mcg/kg/min, Titrate by 0.02 mcg/kg/min, Every 5 minute, Max Dose 2 mcg/kg/min, Routine, 10/11/23 9:27:00 EST, 30 day, Hard Stop, IV Drip, 0... pantoprazole, 40 mg, IV, Daily propofol 1,000 mg + diluent for drips 100 mL(propofol for infusion 1,000 mg + diluent (neuro drips)100 mL), 100 mL, Rate: titrate, Order Calculation Weight: 106 kg, Target Parameter: Silvestre Score 3-4, Starting dose 10 mcg/kg/min, Titrate by 10 mcg/kg/min, Every 10 minute, Max Dose 75 mcg/kg/min, Routine, 10/11/23 9:30:00 EST, 30 day, IV Drip, Hard Stop, 02/0... rifAXIMin, 550 mg= 27.5 mL, G-tube, bid thiamine, 500 mg= 5 tab, G-tube, q8h Home folic acid(folic acid 1 mg oral tablet), 1 mg= 1 tab, PO, Daily furosemide(Lasix 40 mg oral tablet), 40 mg= 1 tab, PO, Daily multivitamin, 1 tab, PO, Daily pantoprazole(pantoprazole 40 mg oral delayed release tablet), 40 mg= 1 tab, PO, Daily potassium chloride(Potassium Chloride (Vdh-Ilwp-Qey M20) 20 mEq oral tablet, extended release), 20 mEq= 1 tab, PO, bid prednisoLONE, 40 mg, PO, Daily spironolactone(spironolactone 100 mg oral tablet), 100 mg= 1 tab, PO, Daily thiamine(thiamine 100 mg oral tablet), 100 mg= 1 tab, PO, Daily urea.(ure-Na 15 g oral powder for reconstitution), 15 g, PO, bid Allergies acetaminophenn/v, rash acetylcysteineunknown amoxicillinrash penicillinsSkin rash Social History see HPI has 2 teenage children. Family History Colon cancer Grandmother (Maternal) Stroke Mother Lab Results Na:135 mmol/LLow (10/11/23 09:55:00) K: 4.6 mmol/L (10/11/23 09:55:00) Cl-: 100 mmol/L (10/11/23 09:55:00) HCO3:20 mmol/LLow (10/11/23 09:55:00) Anion Gap:15 mmol/LHigh (10/11/23 09:55:00) BUN:34 mg/dLHigh (10/11/23 09:55:00) Cret:1.77 mg/dLHigh (10/11/23 09:55:00) eGFR CKD-EPI:50 mL/min/1.73 m2Low (10/11/23 09:55:00) Glu: 81 mg/dL (10/11/23 09:55:00) Ca:8.3 mg/dLLow (10/11/23 09:55:00) M.1 mg/dL (10/11/23 09:55:00) PO4:5.8 mg/dLHigh (10/11/23 09:55:00) Hgb:10.7 g/dLLow (10/11/23 09:55:00) INR:2.2High (10/11/23 10:09:00) PTT: 33 seconds (10/11/23 10:09:00) PT:24.3 secondsHigh (10/11/23 10:09:00) pH(v): 7.39 unit (10/11/23 09:55:00) pCO2(v):34 mmHgLow (10/11/23 09:55:00) pO2(v): 58 mmHg (10/11/23 09:55:00) HCO3(v):20.6 mmol/LLow (10/11/23 09:55:00) Base Defic(v): 3.8 mmol/L (10/11/23 09:55:00) Temp(v): NOT PROVIDED C (10/11/23 09:55:00) Lactate:2.8 mmol/LHigh (10/11/23 09:55:00) ALT:93 unit/LHigh (10/11/23 09:55:00) T Bili:23.8 mg/dLHigh (10/11/23 09:55:00) Alk Phos:169 unit/LHigh (10/11/23 09:55:00) AST:82 unit/LHigh (10/11/23 09:55:00) Alb:2.7 g/dLLow (10/11/23 09:55:00) Prot:6 g/dLLow (10/11/23 09:55:00) Gluc Meter: 76 mg/dL (10/11/23 09:50:00) ABO/Rh: O POSITIVE (10/11/23 09:47:00) Antibody Scr: NEGATIVE (10/11/23 09:43:00) Expires at 0600AM on: 10/14/2023 (10/11/23 09:43:00) R Number: [id number] (10/11/23 09:43:00) Component: RED CELLS (10/11/23 09:43:00) # Units: 0 (10/11/23 09:43:00) B Comments: Second specimen for [facility] confirmation requested from:10/11/2023 1011 (10/11/23 09:43:00) Electronic Signature on File CC: DORIS Stearns [address] [place] [address] Electronically Reviewed/Signed by: DORIS Stearns Author Signature Dt/Tm:10/11/2023 06:05 PM Division of Pulmonary Medicine Electronically Reviewed/Signed by: Atif Vieira MD Cosigner Signature Dt/Tm: 10/11/2023 07:25 PM Division of Pulmonary Medicine [facility] Addiction medicine Consult note * MD Clark Taffy Anne: MODIFY MD Clark Taffy Zelda: MODIFY, MODIFY MD Clark Taffy Zelda: MODIFY, MODIFY MD Clark Taffy Zelda: MODIFY, MODIFY, MODIFY, MODIFY, MODIFY, MODIFY, MODIFY, MODIFY, MODIFY, MODIFY, MODIFY, MODIFY, MODIFY, MODIFY, MODIFY, PERFORM Raad Sanches: PERFORM, MODIFY Raad Sanches: MODIFY, MODIFY Raad Sanches: MODIFY, MODIFY Raad Sanches: MODIFY, MODIFY Raad Sanches: MODIFY Event Display: Addiction Medicine Consult Authored Date: [id number] Chief Complaint liver failure and hepatic encephalopathyd/t alcohol use History of Present Illness Requesting Service: transplant Reason for Consultation: I have been requested see this patient and recommend care regardinghis alcohol use. Hospital Course: admitted to the ICU for an episode of hepatic encephalopathy requiring sedation, intubation, and fluid resuscitation; currently IMC status, alertand extubated Active Medical Issues: Problems Active Thrombocytopenia Anemiaduetoalcoholism Alcoholiccirrhosis SUDHx:pt is a 38 y/o male started drinking alcohol at age 17. He was drinking 1-beeron the hols and escalated to 2 beers (19 oz) or 2 glasses of wine. He denies drinking daily or attending any drug & rehab programs. He has had 5 yrs of sobriety, relapsed in February 2022. He continues to denydrinking more than 6-12 times/yrand more than 2 drinks during thistime. He admitted to having a seizureafter discontinuing drinking but later stated it was notdue to alcohol w/d but work related. He denies any other substance use otherwise than cannabis, has not used cannabis in over a yr. DOC: alcohol Age of initial use: 17 y.o. Highest amount: binge drinking 20 beers in one night Pattern of use: 2 glasses of wine/2 19oz beers during the holidays (last drink was Thanksgiving) Route: oral Longest period of abstinence: 5 years of sobriety before February 2022 when he relapsed after receiving a bottle of vodka as a housewarming present w/d symptoms: leg tremors and anxious mood, one seizure episode in the past Previous t/t: none Rehab/Detox/Outpatient t/t: none Previous medication: none for alcohol use Have you ever been hospitalized for an infection of your heart, spine, blood, or skin? no Do you have HIV or HCV? not aware When was the last time you were tested for HIV/HCV? February 2023, cannot find records IVDU? none DSM5: Substance Use Disorderuse 1 year with at least 2 symptoms: Using larger amounts longer than intended- no Failed attempts to discontinue or reduce amount- no Excessive time is occupied acquiring, using, or recovering from effects- no Having craving or continues to desire to use- no Continued use despite adverse consequences (criminal, poor productivity)- no Desire to use to proceed daily activities such as work, school, hygiene and daily responsibilities- no Alcohol used in dangerous settings such as drivingyes, says he would have 1 drink before driving back from the store Continued use despite physical or psychological problems problems-no Develop a tolerance and higher amount needed to achieve effective- no Develop withdrawal symptoms or use cannabis to prevent withdrawal symptoms- no mild 2-3, moderate 4-5, severe 6 or more Score - 0 UDS: not done PDMP: 10/11/2022 Oxycodone 5mg 10/3days DrugHx: -Alcohol as above -THC gummies in the past with medical marijuana card prescribed for anxiety (no formal diagnosis) but card 1 year ago, has not used since 1 yr ago -Stimulants: Cocaine, Crack-cocaine, amphetamine, methamphetamine, methylphenidate): denies -Sedatives: (GHB, benzodiazepines, barbiturates, phenibut): denies -Narcotics: (heroin,fentanyl, morphine, hydrocodone, hydromorphone, oxycodone, codeine, Demerol, Methadone, Buprenorphine, kratom): denies -Hallucinogens: (MDMA, LSD, PCP, Ketamine, mescaline, psilocybin, K2, Spice, bathsalts): denies -Other: anabolic steroids, inhalants, muscle relaxers, HRT, xylazine, tianeptine:denies -tobacco - according to the chart he idania former cigarette smoker, currently only using one nicotine vape device (cartridge?) per month. Legal: Probation: multiple DUIs in his early 20s [place]: yes - had 60 days of house arrest after having 2 DUIs in a short period of time [facility]: no : no PMHx: cirrhosis, anemia, thrombocytopenia PsychHx: Psych Diagnosis and Medications: denies Previous medication: none Suicidal ideations/attempts/plan: denies Psych Hospitalization/Admission: denies Psychiatrist: none PSHx: none Allergies: Allergies (4) ActiveReaction acetaminophenn/v, rash acetylcysteineunknown amoxicillinrash penicillinsSkin rash Home Medications: Current Home Meds: (Last Updated 10/11 10:48) folic acid (folic acid 1 mg oral tablet) 1 mg PO Daily furosemide (Lasix 40 mg oral tablet) 40 mg PO Daily multivitamin 1 tab PO Daily pantoprazole (pantoprazole 40 mg oral delayed release tablet) 40 mg PO Daily potassium chloride (Potassium Chloride (Uwc-Caxq-Psn M20) 20 mEq oral tablet, extended release) 20 mEq PO bid prednisoLONE 40 mg PO Daily spironolactone (spironolactone 100 mg oral tablet) 100 mg PO Daily thiamine (thiamine 100 mg oral tablet) 100 mg PO Daily urea. 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 Trauma (sexual/physical/emotional): denies Where do you live: [place] Relationship status: engaged Who lives at home with you: maria m and 4 daughters Active users in home: maria m drinks ~6 beers per month Children: 4 daughters (2 biological), his 2 biological daughters did overdose on heroin years ago because ex-wfe was using, he now has full custody of his daughters Who is your source of support: maria m Finances: maria m is a RN Do you have insurance: not currently but will get his card soon Firearm Access: hunting rifles/shotgunlocked in garage ROS: positive for tremors, joint pain in the knees 14 point review of systems otherwisenegative except as per HPI Labs: Most Recent Lab Results over the last 24 Hours: CBC:on 10/17/2023 03:31 CMP:on 10/17/2023 03:31 7.3 134 102 28 10.0 26 125 22.1 3.7 22 1.71 Abs Neut = 8.1 Ca = 8.7 Most Recent Lab Results over the past 30 Days: CBC:on 10/17/2023 03:31 CMP:on 10/17/2023 03:31 7.3 134 102 28 10.0 26 125 22.1 3.7 22 1.71 Abs Neut = 8.1 Ca = 8.7 Active Inpt Meds: albumin human (Albumin 25%) 100 mL IV q8h ceFAZolin 2,000 mg IV q8h folic acid 1 mg PO Daily insulin lispro (HumaLOG Sliding Scale Ultra Low) subQ q6h lactulose 30 g PO q12h midodrine 10 mg PO With meals(0800,1200,1700) octreotide 50 mcg subQ q8h rifAXIMin 550 mg PO bid Active PRN Meds: sodium phosphate 15 mmol IV As indicated sodium phosphate 30 mmol IV As indicated traMADol 25 mg PO q6h traMADol 50 mg PO q6h One Time Meds:None Active IV Meds:None Physical Exam: Vitals: Vitals:Last Updated 10/17/23 12:00 Weights:Last Updated 10/16/23 02:00 Date Temp Pulse BP RR SpO2 FIO2 Date Wt(kg) Wt(lb) 10/17 12:00 89 18 92 10/16 02:00 112.0 246 10/17 11:47 37.5 96 144/69 16 93 2.0L/m 10/15 02:00 109.5 241 10/17 08:00 96 19 91 10/13 05:00 106.8 235 10/17 07:35 37.4 99 145/77 17 93 2.0L/m 10/12 04:00 109.4 241 10/17 04:00 95 17 92 10/11 09:30 106.0 233 24 Hr Tmax:37.6 at 10/16 23:34 Initial Wt:10/11 106.0 kg 233 lb I/O Last 24 Hours Weight:112.00 kg Input: 1020.00 ml 9.11 mL/kg/day Urine Output: 2675.00 ml 1.00 mL/kg/hour Balance: ml General appearance: Jaundice male in NAD HEENTM: PAM, scleral icterus, oral mucosa moist, entire body jaundiced from head to toe Lungs: non labored respiration, CTA a/p lung field, no wheeze/rale/rhonchi Heart: RRR, S1/S2 normal; no murmur/gallop, rub; radial 2+, no LE edema Abdomen: soft, non tender, NABS, distended Skin: Skin is warm, dry; no rashes or lesions Neurologic: AxAxOx4, CN grossly intact, tremors b/l hands Psychiatric: Cooperative, appropriate mood and affect Assessment/Plan 1. Alcohol use Betsy Hansen is a 38 y.o. male with alcoholic cirrhosis who presented for hepatic encephalopathy and currentlyawaits liver transplantation. Addiction Medicine has been consulted for his alcohol use. Based on the DSM5 criteria, he does not meet a formal diagnosis of alcohol use disorder; however, we highly suspect that he does have an alcohol use disorder.He states that he only drinks around the holidays but also says that his fiancee and children are concerned about his drinking habits, evento the point where his fiancee says she will leave him if he does not quit. This patient has very little insight into his condition. He does say that "all of this is my fault"but does not understand that the underlying issue behind his medical problems is due to his alcoholuse. We would categorize him as being in a precontemplative stage of quitting drinking. Because of this, we agree with pursuing drug and alcohol rehab and highly recommend an inpatient facility. We discussed with him the advantages of an inpatient facility including intensive behavioral counseling andstronger peer support.However, he is stillonly interested in an outpatient program. Regardless, we will have a peer production recovery operator provide locations and resources. Otherwise, patient denies any cravings and does not desireany medications to help withalcohol abstinence. He does seem to be exhibitingresting tremors whichmight be related to his alcohol use. He is out of the window for w/d. We also recommend STD testing- HIV, and HBV/HCV, syphilistesting. 2. Tobacco use Not interested in quitting at this time, consider nicotine patch, lozenges or gum as needed. 3. Hepatic encephalopathy- managed by the primary team 4. Alcoholic cirrhosis - managed bythe primary team. We will have ourer production recovery operator see pt tomorrow. Attestation Attending Addendum: I was physically present with the medical student and patient, having personally performed/re-performed the physical exam and medical decision making activities for the service.I verify that the history, physical exam and medical decision making as documented in the note by the medical student are accurate except addictions noted above in italics. Any incorrect information, the strikethrough feature was used. Time spent doing this consultation was 80 min. 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 Thrombocytopenia Medications Inpatient albumin human(Albumin 25%), 100 mL, IV, q8h ceFAZolin, 2000 mg= 50 mL, IV, q8h folic acid, 1 mg= 1 tab, PO, Daily insulin lispro(HumaLOG Sliding Scale Ultra Low), SSI, subQ, q6h lactulose, 30 g= 45 mL, PO, q12h midodrine, 10 mg= 2 tab, PO, With meals(0800,1200,1700) octreotide, 50 mcg= 1 mL, subQ, q8h rifAXIMin, 550 mg= 1 tab, PO, bid sodium phosphate, 15 mmol= 255 mL, IV, As indicated, PRN sodium phosphate, 30 mmol= 510 mL, IV, As indicated, PRN traMADol, 25 mg= 0.5 tab, PO, q6h, PRN traMADol, 50 mg= 1 tab, PO, q6h, PRN Home folic acid(folic acid 1 mg oral tablet), 1 mg= 1 tab, PO, Daily furosemide(Lasix 40 mg oral tablet), 40 mg= 1 tab, PO, Daily multivitamin, 1 tab, PO, Daily pantoprazole(pantoprazole 40 mg oral delayed release tablet), 40 mg= 1 tab, PO, Daily potassium chloride(Potassium Chloride (Kos-Yaxw-Mih M20) 20 mEq oral tablet, extended release), 20 mEq= 1 tab, PO, bid prednisoLONE, 40 mg, PO, Daily spironolactone(spironolactone 100 mg oral tablet), 100 mg= 1 tab, PO, Daily thiamine(thiamine 100 mg oral tablet), 100 mg= 1 tab, PO, Daily urea.(ure-Na 15 g oral powder for reconstitution), 15 g, PO, bid Allergies acetaminophenn/v, rash acetylcysteineunknown amoxicillinrash penicillinsSkin rash Social History Smoking Status Unknown if ever smoked Electronic Signature on File Electronically Reviewed/Signed by: Raad Sanches Author Signature Dt/Tm:10/17/2023 02:18 PM Medical Student Electronically Reviewed/Signed by: Carmela Clark MD Cosigner Signature Dt/Tm: 10/17/2023 08:13 PM Division of Women's Health [facility] Transplant Surgery Inpt Consult * MARIA E Daniel Mikala Jo: PERFORM, MODIFY, MODIFY, MODIFY, MODIFY MARIA E Daniel Mikala Jo: MODIFY, MODIFY MARIA E Daniel Mikala Jo: MODIFY, MODIFY MARIA E Daniel Mikala Jo: MODIFY, MODIFY MARIA E Daniel Mikala Jo: MODIFY, MODIFY MARIA E Daniel Mikala Jo: MODIFY, MODIFY MARIA E Daniel Mikala Jo: MODIFY, MODIFY MARIA E Daniel Mikala Jo: MODIFY, MODIFY MARIA E Daniel Mikala Jo: MODIFY, MODIFY MARIA E Daniel Mikala Jo: DALLAS Vanegas MD, Thomas E: MODIFY Event Display: Transplant Surgery Inpt Consult Authored Date: Chief Complaint Unable to obtain Reason for Consultation Liver transplant evaluation History of Present Illness History obtained from review of outside records and discussion with MICU, as patient is intubated and sedated. 38 year old male with PMH known ETOH cirrhosis (since at least 2016 per outside records) with pHTN complicated by esophageal varices, ascites with previous SBP (tx at [facility] in 2018) apparently with tworecent hospitalizations to [facility] for acute decompensation(09/27-09/30, 10/04-10/07), as well as history of DVT in 2017 (treated with 3 months of AC), tobacco use, who presents to [facility] as a transfer from [facility] for evaluation at a liver transplant center. He initially presented to [facility] ED on 10/10/23 after he was noted to be confused and disoriented at home, thinking that he was walking around in the law. At the time of arrival to the outside ED, he had become obtunded and was ultimately intubated for airway protection. Workup at the outside hospital notable for leukocytosis to 16K, hemoglobin 11.5, platelets 66K, creatinine 1.52, Tbili 23.0, Na 131, AST 84, ALT 108, ALP 231, ammonia 312, ETOH <3, APAP <2, INR 2.2. Influenza/covid testing negative. HCT demonstrated no acute intracranial abnormality. CXR with no acute airspace opacities. He was transferred to [facility] for evaluation at a liver transplant center. On arrival to [facility], he developed worsening hypotension with increasing vasopressor requirements. Repeat labs notable for worsening leukocytosis to 23K, increasing creatinine to 1.77. CXR obtained, demonstrated hypoinflation with bibasilar opacities favoring atelectasis; ddx includes aspiration and pneumonia. He was initiated on cefepime/flagyl, as well as lactulose PO and TN, xifaxan, and high-dose thiamine. Transplant surgery consulted for evaluation. Unable to obtain history from patient due to intubation/sedation. No family present at the bedside. Review of Systems Unable to obtain Physical Exam Vitals & Measurements T:35.6C TMIN:35.0C TMAX:35.6C HR:109(Monitored) RR:13 BP:96/43 SpO2:97% FIO2:50(%) Oxygen Therapy:Ventilator WT:106.000kg(Dosing) WT:106kg Input and Output - Last 24 hours (Last 8 hours) Total In: 0 (0) Total Out: 250 (250) Total Balance: -250 (-250) 10/11/2023 Indwelling, Other: OSH Urethra:250 (250) Const: Intubated/sedated, critically ill-appearing Eyes: PERRL, scleral icterus Resp: Equal chest rise. Intubated, on assist-control with PEEP 8, FiO2 50% CVS: tachycardic, regular rhythm, trace BLE edema GI: Soft, Non-tender, Normal bowel sounds, No distension : No Suprapubic tenderness. Sanchez in place draining kesha urine Skin: Warm, jaundiced Neuro: Sedated, unarousable Diagnostic Results (10/11/2023 12:04 EST US Abdomen Complete) IMPRESSION: 1. Cirrhotic morphology of the liver without focal mass identified. 2. Trace perihepatic ascites. 3. Splenomegaly. 4. Reversal of flow in the portal vein, with to-and-fro direction of flow in the splenic vein. [1] (10/11/2023 10:55 EST XR Chest 1 View) IMPRESSION: 1. Endotracheal tube tip 3.8 cm above the candis. 2. Hypoinflation with bibasilar opacities favoring atelectasis. Differential includes aspiration and pneumonia. [2] (10/11/2023 12:[address] Head Consult) IMPRESSION: No CT evidence of acute intracranial abnormality. Apparent hypodensity in posterior aspect of right middle cerebellar peduncle is likely related to beam hardening artifacts. If patient has posterior fossa symptoms, MRI of the brain may be obtained. [3] Assessment/Plan 38 year old male with PMH known ETOH cirrhosis (since at least 2017 per outside records) with pHTN complicated by esophageal varices, ascites with previous SBP (tx at [facility] in 2019) apparently with tworecent hospitalizations to [facility] for acute decompensation(09/27-09/30, 10/04-10/07), as well as history of DVT in 2017 (treated with 3 months of AC), tobacco use, who presented to [facility] as a transfer from [facility] for evaluation at a liver transplant center. [facility]23 after he was noted to be confused and disoriented at home, thinking that he was walking around in the law. He became obtunded on arrival to [facility] ED and was intubated for airway protection and further stabilized prior to transfer to [facility]. He was noted to have leukocytosis and FELI. MELD 35. #Decompensated cirrhosis -Documented history of presumed ETOH cirrhosis according to outside records, complicated by esophageal varices, ascites, previous episode of SBP (2017) -ABO O, MELD 35 (10/11/23) -Hepatology consulted -Currently with encephalopathy requiring intubation/mechanical ventilation, therefore unable to obtain ETOHhistory from patient to aid in txp evaluation. -Liver duplex demonstrated reversal of flow in portal vein with to-and-fro direction of flow in splenic vein -Recommend ongoing infectious workup including diagnostic para (if able), blood cultures, etc givencurrent concern for sepsis based on worsening leukocytosis, shock requiring NE, vasopressin, and stress-dose steroids -Agree with lactulose for management of presumed hepatic encephalopathy Transplant surgery will continue to follow clinical course Attestation Attending Attestation I have personally seen, evaluated and examined the patient. The medical file was reviewed. I agree with the history, review of systems, and physical exam for this patient. I have reviewed the existing laboratory results and radiographic images. I also agree with the assessment and plan from the advanced practice provider/resident's note with the following additions or deletions: Pt intubated w/ SEPSIS from pna. eval pending. Problem List/Past Medical History Unable to obtain Procedure/Surgical History Unable to obtain Medications Inpatient lactulose, 30 g= 45 mL, PO, q6h mupirocin topical(mupirocin 2% nasal ointment), 1 appl, each nostril, bid norepinephrine 4 mg + Sodium Chloride 0.9% 250 mL(norepinephrine for infusion 4 mg + sodium chloride 0.9% (vasoactive drips) 250 mL), 250 mL, Rate: titrate, Order Calculation Weight: 106 kg, Target Parameter: MAP - greater than 65, Start at 0.02 mcg/kg/min, Titrate by 0.02 mcg/kg/min, Every 5 minute, Max Dose 2 mcg/kg/min, Routine, 10/11/23 9:27:00 EST, 30 day, Hard Stop, IV Drip, 0... propofol 1,000 mg + diluent for drips 100 mL(propofol for infusion 1,000 mg + diluent (neuro drips)100 mL), 100 mL, Rate: titrate, Order Calculation Weight: 106 kg, Target Parameter: Silvestre Score 3-4, Starting dose 10 mcg/kg/min, Titrate by 10 mcg/kg/min, Every 10 minute, Max Dose 75 mcg/kg/min, Routine, 10/11/23 9:30:00 EST, 30 day, IV Drip, Hard Stop, 0... rifAXIMin, 550 mg= 27.5 mL, G-tube, bid Home folic acid(folic acid 1 mg oral tablet), 1 mg= 1 tab, PO, Daily furosemide(Lasix 40 mg oral tablet), 40 mg= 1 tab, PO, Daily multivitamin, 1 tab, PO, Daily pantoprazole(pantoprazole 40 mg oral delayed release tablet), 40 mg= 1 tab, PO, Daily potassium chloride(Potassium Chloride (Eep-Nobw-Ycz M20) 20 mEq oral tablet, extended release), 20 mEq= 1 tab, PO, bid prednisoLONE, 40 mg, PO, Daily spironolactone(spironolactone 100 mg oral tablet), 100 mg= 1 tab, PO, Daily thiamine(thiamine 100 mg oral tablet), 100 mg= 1 tab, PO, Daily urea.(ure-Na 15 g oral powder for reconstitution), 15 g, PO, bid Allergies acetaminophenunknown acetylcysteineunknown amoxicillinunknown penicillinsunknown Social History Unable to obtain Family History Unable to obtain Lab Results Test Name Test Result Date/Time Na 135 mmol/L 10/11/2023 09:55 EST K 4.6 mmol/L 10/11/2023 09:55 EST Cl- 100 mmol/L 10/11/2023 09:55 EST HCO3 20 mmol/L 10/11/2023 09:55 EST Anion Gap 15 mmol/L 10/11/2023 09:55 EST BUN 34 mg/dL 10/11/2023 09:55 EST Cret 1.77 mg/dL 10/11/2023 09:55 EST eGFR CKD-EPI 50 mL/min/1.73 m2 10/11/2023 09:55 EST Glu 81 mg/dL 10/11/2023 09:55 EST Ca 8.3 mg/dL 10/11/2023 09:55 EST Mg 2.1 mg/dL 10/11/2023 09:55 EST PO4 5.8 mg/dL 10/11/2023 09:55 EST Osmolality 313 mOsm/kg 10/11/2023 09:55 EST WBC 23.50 K/uL 10/11/2023 09:56 EST Hgb 10.7 g/dL 10/11/2023 09:56 EST Hgb REQUEST CREDITED 10/11/2023 09:55 EST Hct 31.7 % 10/11/2023 09:56 EST RBC 2.98 M/uL 10/11/2023 09:56 EST MCV 106.4 fL 10/11/2023 09:56 EST MCHC 33.8 g/dL 10/11/2023 09:56 EST MCH 35.9 pg 10/11/2023 09:56 EST RDW 18.8 % 10/11/2023 09:56 EST Plts 83 K/uL 10/11/2023 09:56 EST MPV 10.1 fL 10/11/2023 09:56 EST Type of Diff: AUTO 10/11/2023 09:56 EST Immature Gran% 3.7 % 10/11/2023 09:56 EST Neut% 82.5 % 10/11/2023 09:56 EST Lymph% 4.6 % 10/11/2023 09:56 EST Nobles% 8.5 % 10/11/2023 09:56 EST Baso% 0.3 % 10/11/2023 09:56 EST Eos% 0.4 % 10/11/2023 09:56 EST Immat Gran, Abs 0.88 K/uL 10/11/2023 09:56 EST Neut, Abs 19.38 K/uL 10/11/2023 09:56 EST Lymph, Abs 1.08 K/uL 10/11/2023 09:56 EST Nobles, Abs 1.99 K/uL 10/11/2023 09:56 EST Baso, Abs 0.06 K/uL 10/11/2023 09:56 EST Eos, Abs 0.09 K/uL 10/11/2023 09:56 EST INR 2.2 10/11/2023 10:09 EST PTT 33 seconds 10/11/2023 10:09 EST PT 24.3 seconds 10/11/2023 10:09 EST pH(v) 7.390 unit 10/11/2023 09:55 EST pCO2(v) 34.0 mmHg 10/11/2023 09:55 EST pO2(v) 58.0 mmHg 10/11/2023 09:55 EST HCO3(v) 20.6 mmol/L 10/11/2023 09:55 EST Base Defic(v) 3.8 mmol/L 10/11/2023 09:55 EST Temp(v) NOT PROVIDED 10/11/2023 09:55 EST Lactate 2.8 mmol/L 10/11/2023 09:55 EST ALT 93 unit/L 10/11/2023 09:55 EST T Bili 23.8 mg/dL 10/11/2023 09:55 EST Alk Phos 169 unit/L 10/11/2023 09:55 EST AST 82 unit/L 10/11/2023 09:55 EST Alb 2.7 g/dL 10/11/2023 09:55 EST Prot 6.0 g/dL 10/11/2023 09:55 EST WBC (u) 50+ 10/11/2023 09:55 EST RBC (u) 30-49 10/11/2023 09:55 EST Bact (u) FEW 10/11/2023 09:55 EST Squamous Epithelial Cells (u) FEW 10/11/2023 09:55 EST Hyaline Casts (u) 50+ 10/11/2023 09:55 EST Transitional Epithelial Cells (u) FEW 10/11/2023 09:55 EST Mucous (u) FEW 10/11/2023 09:55 EST Creat (u) 53.62 mg/dL 10/11/2023 13:36 EST Na (u) 42 mmol/L 10/11/2023 13:36 EST Urea Nitro (u) 496 mg/dL 10/11/2023 13:36 EST Osmol (u) 346 mOsm/kg 10/11/2023 13:36 EST [1]US Abdomen Complete; MD Bahman, Radha L 10/11/2023 12:04 EST [2]XR Chest 1 View; DO Osullivan Matthew D 10/11/2023 10:55 EST [3]OO CT Head Consult; MD Rocky, Carlos S 10/11/2023 12:19 EST Electronic Signature on File Electronically Reviewed/Signed by: Toyin Daniel PA-C Author Signature Dt/Tm:10/11/2023 05:41 PM Division of Transplant Surgery Electronically Reviewed/Signed by: Geremias Vanegas MD Cosigner Signature Dt/Tm: 10/13/2023 02:35 PM Division of Transplant Surgery MJB * DO Jacome Kara: PERFORM, MODIFY DO Jacome Kara: MODIFY MD Zenaida, Compa R: MODIFY Event Display: Hepatology Consult Authored Date: [id number] HEPATOLOGY INPATIENT CONSULTATION REPORT Name: BETSY HANSEN Patient Number: [id number] : 1985 Date of Admission: 10/11/2023 Date of Service: 10/11/2023 REQUESTING PHYSICIAN'S NAME: MD Vieira David REASON FOR CONSULTATION: abnormal LFTs, reported history of cirrhosis ASSESSMENT: 38-year-old gentleman with reported history of decompensated cirrhosis complicated by esophageal varices and ascites per outside records who was transferred to [facility] after having altered mental status with concerns for hepatic encephalopathy and acute liver failure. At this time, we have minimal workup at outside records to accurately assess Mr. Hansen. I have tried to contact his outside vacuum metalizer operator and creative strategist but have not been successful. Would recommend completing a full infectious workup given his leukocytosis upon arrival and trying to wake him up with lactulose to see if this is contributing to his encephalopathy. RECOMMENDATIONS: _ 1 ) Would recommend getting an ultrasound of the abdomen to evaluate for ascites as well as a new liver lesion. -If ascites present and amenable to paracentesis, would recommend a diagnostic tap with cell count,albumin, protein, cytology, cultures 2 ) Complete infectious workup with blood cultures, chest x-ray, urinalysis with urine culture, andSBP evaluation of ascites is seen on imaging 3 ) please obtain a Peth test given his history of alcohol abuse 4 ) would recommend starting on lactulose for management of hepatic encephalopathy. Goal is to wakehim up and assess his mental status and discuss his liver history further 5 ) Daily MELD labs including CBC, CMP, PT/INR Follow up: Hepatology will continue to follow Shannon Jacome DO Department of Gastroenterology & Hepatology, PGY-5 [facility] HPI: _38M found unresponsive came into the ER at OSH. Apparently found awake and disoriented walking in the law when EMS found him, unable to be redirected. He was then proceeded to be intubated for airway protection given a decline in his mental status. Was reportedly told of "liver failure" andneeded to be sent for evaluation of liver txp. No prior medical history. Per chart review, patient has reportedly seen an outside gastroenterology and hepatology clinic andhas been under the care of Arash GEORGE ([phone]) who I have not been able to speak with directly. However, per multiple documentation in our outside records, he has had multiple no-shows in the past. He reportedly had an EGD in 2017 that showed some esophageal varices and portal hypertensive gastropathy. He does have a history of SBP per notes and has been maintained on furosemide and spironolactone for management of his ascites. There has been conflicting information aboutwhether or not he actively is drinking. There are some documents to say that he is a non-smoker butother says today he is actively smoking half a pack a day for the last 15 years. Baseline labs thatI have are from March 2023 with a hemoglobin of 13.4 WBC 5.66 platelet 86 creatinine 1.2 INR 1.6 T. bili 7.3 alk phos 204 AST 67 ALT 43. He also has reportedly been hospitalized twice in the last several months for episodes of questionable alcoholic hepatitis for which she has been prescribed prednisone. Prior to transfer to [facility], patient's labs were notable for a WBC of 16.32 hematocrit 34.4 platelet count 66. BMP noted a sodium of 131 BUN 30 creatinine 1.52. LFTs demonstrated T. bili of 23 alk phos 231 AST 84 ALT 108. There is an INR of 2.21. Albumin was noted to be low at 2.0 with a total protein of 6.6. He did have an albumin level that was 312. Lactic acid was measured at 5.7. His alcohol level was undetectable and he had a UDS that was negative. He also had acetaminophenand salicylate acids that were unremarkable. Flu and COVID were negative. He had a CT head that showed no focal abnormalities to explain mental status changes. He then appears to have been transferred to [facility] for further evaluation. Complications of Cirrhosis _ Varicies: ? reportedly seen on EGD in 2017 _ Encephalopathy: _ _ Ascites: ? h/o SBP 2019, on lasix and spironolactone _ HCC: _ _ Pulmonary: _ PAST MEDICAL HISTORY: Problems: None Specified Hospital Day: 0 Surgical Hospital Day/Procedure: No procedures found MEDICATIONS: Active Inpt Meds: lactulose 30 g PO q6h mupirocin topical (mupirocin 2% nasal ointment) 1 appl each nostril bid rifAXIMin 550 mg G-tube bid Active PRN Meds: None Active IV Meds: norepinephrine 4 mg + Sodium Chloride 0.9% 250 mL (norepinephrine for infusion 4 mg + sodium chloride 0.9% (vasoactive drips) 250 mL) 250 mL titrate propofol 1,000 mg + diluent for drips 100 mL (propofol for infusion 1,000 mg + diluent (neuro drips) 100 mL) 100 mL titrate Allergies and Sensitivities: acetylcysteine(unknown) penicillins(unknown) amoxicillin(unknown) acetaminophen(unknown) SOCIAL HISTORY: 1-2 beers a week, non-smoker per OSH records. FAMILY HISTORY: unable to obtain ROS: unable to obtain 2/2 AMS VITAL SIGNS AND EXAM: Vitals Temp Pulse BP RR SpO2 FIO2 Date Wt(kg) Wt(lb) 10/11 10:08 35.3 --- ----- -- --- --- 10/11 106.0 233 10/11 10:00 ---- 111 102/51 14 98 50% 10/11 106.0 233 10/11 09:45 ---- 112 99/49 13 96 --- 10/11 09:35 35.0 113 105/54 12 100 --- 24 Hr Tmax: 35.3 at 10/11 10:08 36 Hr Tmax: 35.3 at 10/11 10:08 Vital Signs are the last 5 in the past 48 hours. Weights display the last 5 within 7 days. Initial Wt: 10/11 kg 233 lb Recorded Input Output Balance 10/11 7a-3p 1000 250 750 3p-11p 0 0 0 11p-7a 0 0 0 24 Total 1000 250 750 10/10 7a-3p 0 0 0 3p-11p 0 0 0 11p-7a 0 0 0 24 Total 0 0 0 Refer to the I-VIEW - I and O tab for details Physical Exam: General: _intubated, sedated HEENT: atraumatic, normocephalic, icteric sclerae Neck: supple Cardiac: tachycardic, no murmurs Lungs: on ventilator Abdomen: soft, nondistended, no palpable organomegaly Extremities: +2 peripheral pulses Neuro: sedated Skin: warm & dry, jaundice LABS: Most Recent 24 Hour CBC/BMP Results No Latest CBC or BMP Found. Most Recent 24 Hour Labs: 10/11/23 0955 Temp(v) NOT PROVIDED HCO3(v) 20.6 L pCO2(v) 34.0 L pH(v) 7.390 pO2(v) 58.0 Base Defic(v) 3.8 10/11/23 0950 Gluc Meter 76 10/11/23 0943 ABO/Rh See Flowsheet Antibody Scr See Flowsheet Expires at 0600AM on See Flowsheet # Units 0 R Number See Flowsheet B Comments See Flowsheet Component See Flowsheet No Estimated GFR, not found. LFT Results: No LFT Lab Data Found. I HAVE SEEN AND EXAMINED THE PATIENT IN THE PRESENCE OF DR. JACOME. I AGREE WITH HER FINDINGS ANDPLAN OF CARE DOCUMENTED. Electronic Signature on File Electronically Reviewed/Signed by: Shannon Jacome DO Author Signature Dt/Tm:10/11/2023 12:00 PM Resident Department of Medicine Electronically Reviewed/Signed by: Compa Estevez MD, AGAF, FACG, FACP, FAASLD Cosigner Signature Dt/Tm: 10/11/2023 01:48 PM jet inspector, Division of Gastroenterology and Hepatology [address], [address] [place] [address] [place] Discharge instructions * MD Mariano Colleen M: PERFORM Event Display: Patient Discharge Instructions Authored Date: [id number] BETSY HANSEN :1985 Visit Date:10/11/2023 Patient Discharge Instructions [facility] For medical concerns, call: . Date of Admission:10/11/2023 Date of Discharge:10/19/2023 Physician:MD Mariano Colleen M Service:Internal Medicine Discharge Disposition: . Advance Directive:Unable to Obtain Information Reason for Hospitalization Septic shock due to Staphylococcus Your Diagnoses Septic shock due to Staphylococcus Acute hypoxemic respiratory failure Pneumonia due to Methicillin susceptible Staphylococcus aureus Acute hepatic encephalopathy Alcoholic cirrhosis Other secondary thrombocytopenia Anemia due to alcoholism Alcohol use Tobacco use Coagulopathy My [employer] Patient Portal: [facility] [employer] makes it easy for you to manage your health information online. [employer] [facility] [employer] is a free service that provides you instant, secure access to your medical information anytime, anywhere. Sign in or set up your account today at [email or web address] Thank you for allowing us to assist you with your healthcare needs. If you need additional community resources, [facility] [employer] can help at [email or web address]. 211 can assist you in connecting with social programs based on your unique needs and locations. 211 is an anonymous search that can help you locate resources for: Food, Housing, Transportation, Goods, Education and Healthcare. Medications Patient is enrolled in Rx-to-Go Program New medications will be delivered from [facility] to patient's room at discharge: Mon-Sun from 9AM-5 PM. Medications MUST be PICKED UP at [facility] if patient is discharged Mon-Sun after 5 PM or anytime on holidays. Please note, the [facility] closes at 8 PM on weekdays and 5:30 PM on Saturdays, Sund, and holidays. What How Much When Why Instructions Next Dose New lactulose (lactulose 10 g/ 15 mL oral syrup) 45 Milliliter by mouth Every 12 hours Acute hepatic encephalopathy Duration: 30 Days Pickup at [facility] [address]128 New midodrine (midodrine 5 mg oral tablet) 2 tab(s) by mouth With meals(0800,1200,1700) Alcoholic cirrhosis Duration: 30 Days Pickup at [facility] [address]128 New rifAXIMin (rifAXIMin 550 mg oral tablet) 1 tab(s) by mouth 2 times daily Alcoholic cirrhosis Acute hepatic encephalopathy Duration: 30 Days Pickup at [facility] [address]128 Unchanged folic acid (folic acid 1 mg oral tablet) 1 tab(s) by mouth Once daily Unchanged furosemide (Lasix 40 mg oral tablet) 1 tab(s) by mouth Once daily Unchanged multivitamin 1 tab(s) by mouth Once daily Unchanged pantoprazole (pantoprazole 40 mg oral delayed release tablet) 1 tab(s) by mouth Once daily Unchanged potassium chloride (Potassium Chloride (Vvw-Djfm-Cxl M20) 20 mEq oral tablet, extended release) 1 tab(s) by mouth 2 times daily Unchanged spironolactone (spironolactone 100 mg oral tablet) 1 tab(s) by mouth Once daily Unchanged thiamine (thiamine 100 mg oral tablet) 1 tab(s) by mouth Once daily Unchanged urea. (ure-Na 15 g oral powder for reconstitution) 15 gram by mouth 2 times daily Pharmacy Information [facility] 2128: [address] [facility] [place]iz [phone] What How Much When Comments Stop Taking prednisoLONE 40 Milligram by mouth Once daily Allergies acetaminophenn/v, rash acetylcysteineunknown amoxicillinrash penicillinsSkin rash What to do next Instructions From Your Doctor Please resume all your home medications including prednisolone and continue lactulose and rifaximin. You should take a lactulose dose that leads to 3-4 bowel movements per day. Please follow up with your creative strategist Dr. De Guzman as scheduled on 10/25/23. If you notice the following symptoms If you have fever, chills, abdominal pain, nausea, vomiting, worsening jaundice, confusion, please call. Contact our Careline at . If unable to contact your physician and you feel it is an emergency, go to the nearest Emergency Room or call 911 Diet Instructions Low sodium diet Activity Instructions as tolerated Follow-Up Appointments You Need to Schedule the Following Appointments Follow Up withDO De Guzman Ashley Marie When:Within 5 to 7 days Why: Call your doctor to make an appointment Follow Up withMD Cristy, Adan When:Within 5 to 7 days Why: Call your doctor to make an appointment [phone] Why: If the [facility] has not reached out to you in 24-48hrs after discharge please call to schedule a home visit. The Following Services Have Been Arranged for You Service: Organization: Business Address: Phone Number: Home Care Physician Services [facility] [address], [place], [address] Durable Medical Equipment [facility] [address] [place] [address] [address], [place], [address] Test Results Test Name Test Result Date/Time Na 137 mmol/L 10/19/2023 04:24 EST K 3.2 mmol/L 10/19/2023 04:24 EST Cl- 105 mmol/L 10/19/2023 04:24 EST HCO3 22 mmol/L 10/19/2023 04:24 EST Anion Gap 10 mmol/L 10/19/2023 04:24 EST BUN 18 mg/dL 10/19/2023 04:24 EST Cret 1.14 mg/dL 10/19/2023 04:24 EST eGFR CKD-EPI 84 mL/min/1.73 m2 10/19/2023 04:24 EST Glu 95 mg/dL 10/19/2023 04:24 EST Ca 8.6 mg/dL 10/19/2023 04:24 EST Mg 1.8 mg/dL 10/19/2023 04:24 EST PO4 2.2 mg/dL 10/19/2023 04:24 EST WBC 6.54 K/uL 10/19/2023 04:24 EST Hgb 7.3 g/dL 10/19/2023 04:24 EST Hct 21.7 % 10/19/2023 04:24 EST RBC 1.96 M/uL 10/19/2023 04:24 EST MCV 110.7 fL 10/19/2023 04:24 EST MCHC 33.6 g/dL 10/19/2023 04:24 EST MCH 37.2 pg 10/19/2023 04:24 EST RDW 21.9 % 10/19/2023 04:24 EST Plts 30 K/uL 10/19/2023 04:24 EST MPV 10.6 fL 10/19/2023 04:24 EST Type of Diff: AUTO 10/19/2023 04:24 EST Immature Gran% 4.4 % 10/19/2023 04:24 EST Neut% 70.1 % 10/19/2023 04:24 EST Lymph% 11.6 % 10/19/2023 04:24 EST Nobles% 11.0 % 10/19/2023 04:24 EST Baso% 0.3 % 10/19/2023 04:24 EST Eos% 2.6 % 10/19/2023 04:24 EST Immat Gran, Abs 0.29 K/uL 10/19/2023 04:24 EST Neut, Abs 4.58 K/uL 10/19/2023 04:24 EST Lymph, Abs 0.76 K/uL 10/19/2023 04:24 EST Nobles, Abs 0.72 K/uL 10/19/2023 04:24 EST Baso, Abs 0.02 K/uL 10/19/2023 04:24 EST Eos, Abs 0.17 K/uL 10/19/2023 04:24 EST INR 3.4 10/19/2023 04:24 EST Fibr 110 mg/dL 10/19/2023 04:24 EST PT 34.9 seconds 10/19/2023 04:24 EST ALT 16 unit/L 10/19/2023 04:24 EST T Bili 34.8 mg/dL 10/19/2023 04:24 EST Alk Phos 71 unit/L 10/19/2023 04:24 EST AST 52 unit/L 10/19/2023 04:24 EST Tests Pending Reticulocyte Panel To obtain results pending at hospital discharge, call and ask for the following Physician:MD Montserrat, Iman Parrish Procedures Performed (10/11/2023 10:55 EST XR Chest 1 View) IMPRESSION: 1. Endotracheal tube tip 3.8 cm above the candis. 2. Hypoinflation with bibasilar opacities favoring atelectasis. Differential includes aspiration and pneumonia. [1] (10/11/2023 10:55 EST XR Abdomen 1 View) IMPRESSION: NG tube within the proximal stomach. [2] (10/11/2023 12:04 EST US Abdomen Complete) IMPRESSION: 1. Cirrhotic morphology of the liver without focal mass identified. 2. Trace perihepatic ascites. 3. Splenomegaly. 4. Reversal of flow in the portal vein, with to-and-fro direction of flow in the splenic vein. [3] (10/12/2023 20:[address] Angio Abdomen and Pelvis) IMPRESSION: 1. No pneumatosis. No bowel obstruction. 2. No acute aortic syndrome. No contrast extravasation. 3. Cirrhotic liver morphology with portal hypertension in the form splenomegaly and gastric varices. 4. Feeding tube loops in the stomach, tip at the fundus. [4] (10/13/2023 01:34 EST XR Abdomen 1 View) IMPRESSION: Feeding and enteric tube tips terminate in the gastric fundus. [5] (10/13/2023 15:32 EST VL Art/Vein Abd/Pelvis/Scrotal Complete) TYPE OF TEST: Abdominal Venous Duplex REASON FOR TEST Cirrhosis INTERPRETATION/FINDINGS Duplex exam of the hepatoportal vascular system reveals: 1. Retrograde flow in the portal vein of uncertain etiology. The main portal vein is dilated measuring 15.0 mm. 2. The proximal inferior vena cava is patent with normal flow direction. 3. The right and mid hepatic veins are patent with normal flow direction. Unable to visualize left hepatic vein. 4. Normal flow direction in the splenic mesenteric vein. Unable to visualize the superior mesenteric vein due to overlying bowel gas. 5. No evidence of significant stenosis in the celiac and hepatic arteries. 6. The liver measures approximately 13.9 cm. 7. Splenomegaly measuring approximately 15.2 cm. [6] Special Instructions Common Emergency Awareness Tips Call 911 immediately if: experiencing any of the warning signs and symptoms of stroke: B.E. F.A.S.T. Balance: is there trouble with walking or coordination Eyes: is there double vision or visual loss Face: Smile, do both sides of face move equally Arm: Raise arms, do both arms move equally Speech: Is speech slurred or inappropriate Time: Time is critical, call 911 immediately Heart Attack Signs Chest discomfort: Most heart attacks involve discomfort in the center of the chest and lasts more than a few minutes, or goes away and comes back. It can feel like uncomfortable pressure, squeezing, fullness or pain. Discomfort in upper body: Symptoms can include pain or discomfort in one or both arms, back, neck, jaw or stomach. Shortness of breath: With or without discomfort. Other signs: Breaking out in a cold sweat, nausea, or lightheaded. Remember, MINUTES DO MATTER. If you experience any of these heart attack warning signs, call 9-1-1 to get immediate medical attention! [1]XR Chest 1 View; DO Osullivan Matthew D 10/11/2023 10:55 EST [2]XR Abdomen 1 View; MD Rashard, Mahamed Fontanez 10/11/2023 10:55 EST [3]US Abdomen Complete; MD Bahman, Radha To 10/11/2023 12:04 EST [4]CT Angio Abdomen and Pelvis; MD David, Arabella Marie 10/12/2023 20:37 EST [5]XR Abdomen 1 View; MD Emerson, Josue Tomas 10/13/2023 01:34 EST [6]VL Art/Vein Abd/Pelvis/Scrotal Complete; MD Darren, Kennedy 10/13/2023 15:32 EST Laboratory * DO Corcoran Melissa R: VERIFY DO Corcoran Melissa R: VERIFY, TRANSCRIBE Event Display: EULALIA HERNANDEZ Dx Authored Date: Automated CBC and peripheral blood smear demonstrate macrocytic, hyperchromic anemia, absolute lymphopenia, and thrombocytopenia. A peripheral blood smear interpretation is requested. Red blood cells demonstrate mild anisopoikilocytosis with echinocytes. There is no increase in schistocytes and no nucleated red blood cells or [place] bodies seen. Neutrophils, lymphocytes, andmonocytes are predominantly unremarkable. Rare hypersegmented neutrophils. Platelets have normal morphology. Reticulocyte production index is inadequate for the degree of anemia, suggestive of a hypoproliferative process. The macrocytic anemia and thrombocytopenia are likely secondary to the patients liver disease. Recommend folate level. There are no morphological findings on this smear to explain theabsolute lymphopenia. Gabby Corcoran DO (Electronically signed by) Verified: 10/17/2023 15:35 EST Performing Location: [facility] * DO Corcoran Melissa R: VERIFY DO Corcoran Melissa R: VERIFY, PERFORM Event Display: CP PB Part type Authored Date: [id number] Peripheral blood smear Patient Care team information Care Team Personnel Name: Brian Taveras Amy E Position: Pharmacist Member Role: Pharmacy - Lifetime Address: Address: [facility] [address] [place] [address] [place] Name: MD Cristy, Adan Position: Referring Member Role: Primary Care Provider Address: Address: [place] [phone] [place] Name: Brian Gonzalez Brittani Position: Pharmacist Schedule II Member Role: Pharmacy - Lifetime Care Team Related Persons Name: DAYANNA NORRIS Name: CATALINA HANSEN
--- OUTSIDE RECORDS SUMMARY | 2023-11-01 15:52 | External Medical Summary | Summary of Care ---
Author Name Unknown Organization [facility] Address [address] [place] [address] Phone [phone] Care Team Providers Care Information Clerk Cashier Name Role Phone Adan Muniz MD Primary Care Provide r Reason for Visit * Reason Onset Date Comments Hospital Follow-Up 10/11/2023 [facility] 10/07 Encounter Details Date Type Department Care Team (Late st Contact Info) Description 10/11/2023 Telephone Ancillary [address] [place] [address] Kasandra Felix RN Hospital Follow-Up ([facility] 10/07) Allergies Active Allergy Reactions Criticality Noted Date Comments Amoxicillin Rash 10/20/2017 Penicillins Rash High 10/20/2017 Other reaction(s): UNKNOWN Acetaminophen Nausea/vomiting,Othe r (Please comment),Rash 10/20/2017 Shortness of breath documented as of this encounter (statuses as of 10/11/2023) Medications Medication Sig Dispensed Refills Start Date End Date Status K Phos Hughes-Sod Phos Di & Hughes [id number] MG Oral Tablet (K-Phos Neutral) Take [...] as of this encounter (statuses as of 10/11/2023) Active Problems Problem Noted Date Diagnosed Date [...] as of this encounter (statuses as of 10/11/2023) Resolved Problems Problem Noted Date Diagnosed Date Resolved Date SBP (spontaneous bacterial peritonitis) 01/23/2019 02/22/2023 DVT (deep venous thrombosis) 01/21/2019 01/22/2019 Overview: In 2017 - treated for 3 months with AC Alcohol abuse 01/21/2019 08/16/2022 Coagulation defect 01/21/2019 2 Cellulitis, abdominal wall 01/21/2019 1 10/16/2021 Reflux esophagitis 01/15/2006 1 documented as of this encounter (statuses as of 10/11/2023) Immunizations Name Administration Dates Next Due DTaP [...] Telephone Encounter - Kasandra Felix RN - 10/11/2023 12:13 PM EST Transitions of Care Note Reason for Referral:Recent Admission Phone visit for follow up: ODETTE Admitted to: [facility], Date: 10/04 Discharged to: home, Date: 10/07 Diagnosis driving hospitalization: acute decompensation of liver cirrhosis Called pts cell and his girlfriend answered. Informed me she called 911 last night because he was confused and lethargic. They took him to [facility] where he developed respiratory distress. He was intubated and flown to [facility]. Will cancel his hospital follow up appt. documented in this encounter Plan of Treatment Upcoming Encounters Date Type Department Care Team (Latest Contact Info) Description 10/25/2023 2:00 PM EST Office Visit Gastroenterology , [facility] [address] [place] [address] Arash Archuleta CRNP [address] [place] [address] 12/05/2023 11:45 AM EST Hospital Encounter ENDO OSSC, Endoscopy Room [facility] [address] [place] [phone] Isabelle De Guzman DO [address] [place] [address] 12/05/2023 11:45 AM EST - 12/05/2023 12:15 PM EST Surgery ENDO [facility], Endoscopy Room [facility] [address] [place] [address] Isabelle De Guzman DO [address] [place] [address] ESOPHAGOGASTRODUODENOSCOPY (EGD), FLEXIBLE, TRANSORAL, DIAGNOSTIC 01/30/2024 2:40 PM EDT Office Visit Hepatology, [facility] [address] [place] [address] Isabelle De Guzman DO [address] [place] [address] Scheduled Procedures Name Priority Associated Diagnoses Date/Ti [...] and were consensually agreed upon. Care Teams Information Clerk Cashier Relationship Specialty Start Date End Date Adan Muniz MD [address] [place] [address] [place] [address] PCP - General Family Medicine 02/22/23 documented as of this encounter
--- OUTSIDE RECORDS SUMMARY | 2023-11-01 15:52 | External Medical Summary ---
Author Name Unknown Address Unknown Organization K01:[facility] - [address] [place] [address] Laboratory Report Ordering Provider Test Date Status ERIN HASSAN 10/25/2023 15:22:01 Final Observation Date Value Abnormality Reference (Units ) Status Bilirubin, Direct 10/25/2023 15:22:01 >10.0 Above high normal 0.0-0.3 (mg/dL) Final Performing Location [facility] [place] - [address] [place] [address]
[2023-11-01] MEDS: prednisoLONE sod phosphate 15 MG/5 ML PO SCH (16:12)
[2023-11-01] MEDS: MIDODRINE HCL 2.5 MG TAB PO SCH (16:12)
[2023-11-01] MEDS ORDERED: ONDANSETRON INJ 2 MG/ML 2 ML VIAL IV PRN (18:19)
[2023-11-01] MEDS: LACTULOSE SYRUP 30 GM/45 ML UDP PO SCH (19:44)
[2023-11-01 20:21] LABS: Amphetamines+Metham, Urine Neg (Neg); Barbiturates, Urine Neg (Neg); Benzodiazepine, Urine Neg (Neg); Cocaine, Urine Neg (Neg); MDMA (Ecstacy), Urine Neg (Neg); Marijuana, Urine Neg (Neg); Methadone, Urine Neg (Neg); Opiate, Urine Neg (Neg); Phencyclidine, Urine Neg (Neg)
[2023-11-01] MEDS: rifAXIMin 550 MG TABLET PO SCH (20:28)
[2023-11-01] MEDS: ALBUMIN 25% 25 GM/100 ML VIAL IV SCH (22:33)
--- OUTSIDE RECORDS SUMMARY | 2023-11-02 01:33 | External Medical Summary | Summary of Care ---
Author Name Unknown Organization [facility] Address [address] [place] [address] Phone [phone] Care Team Providers Care Small Engine Technician Name Role Phone Adan Muniz MD Primary Care Provide r Reason for Visit * Reason Onset Date Comments Abnormal Lab Results 11/01/2023 Encounter Details Date Type Department Care Team (Late st Contact Info) Description 11/01/2023 Telephone Gastroenterology, [facility] [address] [place] [address] Arash Archuleta CRNP [address] [facility] [place] [address] Abnormal Lab Results Allergies Active Allergy Reactions Criticality Noted Date Comments Amoxicillin Rash 10/20/2017 Penicillins Rash High 10/20/2017 Other reaction(s): UNKNOWN Acetaminophen Nausea/vomiting,Othe r (Please comment),Rash 10/20/2017 Shortness of breath documented as of this encounter (statuses as of 11/01/2023) Medications Medication Sig Dispensed Refills Start Date End Date Status K Phos Mcculloch-Sod Phos Di & Mcculloch [id number] MG Oral Tablet (K-Phos Neutral) Take [...] encounter Miscellaneous Notes * Telephone Encounter - Ruth Kovacs LPN - 11/01/2023 10:25 AM EST Called patient he found a ride to [facility] he will be there in 30 minutes. Notes and labs faxed to [facility], [facility] ER report given, Dr. Boudreaux and Jeanne were [place] Texted. * Telephone Encounter - Arash Archuleta CRNP - 11/01/2023 8:23 AM EST Cr 2.5, Na 127. T Bili 42. ETOH (-) but PETH was very high earlier this month at [facility]. Discussed w Dr. De Guzman who is here in the clinic. Pt needs hospitalization for IV albumin TID x 3 days, fluid restriction, midodrine, nephrology consult. Notified pt. He is reluctant to seek He tells me that he is not able to drive to [facility] (not enough money for gas to get there, lives closer to [place]). I call the [place] ED and provided a report w background and above info. The ED charge nurse told me that they do not have nephrology or gastro, so if he presents there, hewill need to be transferred and it may take a few days to get a bed. I called the pt back at [phone] and informed him to go to [facility] (strongly suggested) or as the [place] ED said, go to [place]. He will call friends/family to try to get a ride to [facility]. He will call us back at [phone] and we will send an ambulance to his home to take him to [facility] if he is unable to get a ride. documented in this encounter Plan of Treatment Upcoming Encounters Date Type Department Care Team (Latest Contact Info) Description 11/04/2023 11:10 AM EST Office Visit Family [address] [place] [address] [place] [address] 12/01/2023 12:00 PM EST Office Visit Gastroenterology [facility] [address] [place] [address] Arash Archuleta CRNP [address] [place] [address] 12/05/2023 11:45 AM EST Hospital Encounter ENDO OSS, Endoscopy Room [facility] [address] [place] [address] Isabelle De Guzman DO [address] [place] [address] 12/05/2023 11:45 AM EST - 12/05/2023 12:15 PM EST Surgery ENDO OSSC, Endoscopy Room [facility] [address] [place] [phone] Isabelle De Guzman DO [address] [place] [address] ESOPHAGOGASTRODUODENOSCOPY (EGD), FLEXIBLE, TRANSORAL, DIAGNOSTIC 01/30/2024 2:40 PM EDT Office Visit Hepatology, [facility] [address] [place] [address] Isabelle De Guzman DO [address] [place] [address] Scheduled Procedures Name Priority Associated Diagnoses Date/Ti [...] and were consensually agreed upon. Care Teams Small Engine Technician Relationship Specialty Start Date End Date Adan Muniz MD [address] [place] [address] [place] [address] PCP - General Family Medicine 02/22/23 documented as of this encounter
[2023-11-02] MEDS: ALBUMIN 25% 25 GM/100 ML VIAL IV SCH ×2 (07:20→13:47)
[2023-11-02 07:55] LABS: Hematocrit (blood only) 23.9 % (42.0-52.0); Hemoglobin 8.1 g/dl (14.0-18.0); Mean Corpuscular Hgb Conc 33.9 g/dL (32.0-36.0); Mean Corpuscular Volume 106.2 fL (80.0-100.0); Mean Platelet Volume 10.2 fL (9.4-12.4); Platelet Count 72 K/uL (130-400); RDW Coefficient of Variation 15.6 % (11.5-14.5); RDW Standard Deviation 60.4 fL (36.4-46.3); Red Blood Count 2.25 M/uL (4.70-6.10); White Blood Count 9.39 K/ul (4.8-10.8)
[2023-11-02] MEDS: rifAXIMin 550 MG TABLET PO SCH (08:18)
[2023-11-02] MEDS: LACTULOSE SYRUP 30 GM/45 ML UDP PO SCH (08:18)
[2023-11-02 08:19] LABS: Calcium 9.3 mg/dl (8.6-10.3); Potassium 5.9 mmol/L (3.5-5.1)
[2023-11-02 08:25] LABS: BUN Creatinine Ratio 12.8 (10-20); Creatinine Clr Calc Pharmacy 31.5 ml/min; Est GFR (African American) 20.6 ml/min; Est GFR (Non-African American) 17.8 ml/min
[2023-11-02 08:34] LABS: Prothrombin Time 48.3 Seconds (9.0-12.0)
[2023-11-02 08:39] LABS: INR 4.9 (0.9-1.1)
[2023-11-02 08:54] VITALS: PULSE 92; RESP 20
[2023-11-02] MEDS ORDERED: FOLIC ACID 1 MG TAB PO SCH (09:00)
[2023-11-02] MEDS ORDERED: PANTOprazole 40 MG TAB PO SCH (09:00)
[2023-11-02] MEDS ORDERED: THIAMINE HCL 100 MG TAB PO SCH (09:00)
[2023-11-02] MEDS ORDERED: MULTIVITAMIN TAB PO SCH (09:00)
[2023-11-02] MEDS ORDERED: UREA (UREA-NA) 15 GM PACK PO SCH ×2 (09:00→21:00)
[2023-11-02] MEDS ORDERED: PHYTONADIONE 10 MG in DEXTROSE 5% 50 ML IV ONE (09:03)
[2023-11-02] MEDS: prednisoLONE sod phosphate 15 MG/5 ML PO SCH (09:22)
[2023-11-02] MEDS: MIDODRINE HCL 2.5 MG TAB PO SCH (09:30)
--- NOTE | 2023-11-02 09:37 | Gastrointestinal Consultation ---
Date of Consultation November 02, 2023 Assessment & Plan (1) Decompensated HCV cirrhosis: (2) FELI (acute kidney injury): (3) Alcoholic cirrhosis: Pt is a 38 yo male w medical hx of decompensated ETOH cirrhosis complicated w ascites, esophageal varices, ETOH hepatitis, admitted for hyponatremia, worsenin g renal function and elevated LFTs particularly Tbili of 48. Recent admission to this facility for ETOH hepatitis and few weeks ago was just DC'd from [facility] after admitted for HRS, hepatic encephalopathy, and MSSA pneumonia. MELD 40; Maddrey Discriminant Function score >32. - Vit K 10mg IV x 1 dose - 2g Na diet, 1500ml fluid restriction - Lactulose (titrate for goal 3-5 BMs daily); Xifaxan 550mg BID - FA, Thiamine supplements - Hold diuretics - Nephrology consulted - Albumin 25% 25g IV q8hrs; Midodrine 10mg PO TID; Octreotide 50mcg IV Q8hr; Urea 15mg BID - Hold steroids until urine and blood cx resulted. Initiate Pentoxyfylline 400mg TID - Monitor mental status, INR, renal function daily - Avoid NSAIDs, No APAP >2g a day, strict ETOH abstinence - Transfer to tertiary care center w Hepatology/Liver transplant support once bed available Supervising Physician Co-Signing Physician Notes I saw and evaluated the patient. We were consulted for evaluation of alcoholic liver disease. The patient is known to our service from prior outpatient evaluations and a recent inpatient evaluation at [facility]. Fortunately the patient has been only marginally compliant with outpatient recommendations as per evaluation of his record. His MELD score is exceptionally elevated at approxi mately 40 based on labs from yesterday. Given this we have made recommendations about patient referred to a transplant center as his 3-month mortality is over 70%. For the immediate term recommend conservative therapy with management of suspected hepatorenal syndrome with midodrine, octreotide and albumin. In addition the patient should have empiric coverage with antibiotics. We have also made a decision to begin the patient on Trental for treatment suspected alcoholic hepatitis. I did have a discussion with the patient about the objective mortality of 70% given his profound presentation. The patient is in process of being transferred to a tertiary Medical Center with transplant capabilities. History of Present Illness Reason for Consultation: Decompensated cirrhosis Requesting Physician: Dr. Yinka Wong Attending Physician: Dr. Letty Boudreaux History of Present Illness Pt is a 38 yo male w medical hx of decompensated ETOH cirrhosis complicated w ascites, esophageal varices, ETOH hepatitis who was referred to ED yesterday by GI outpt provider (DORIS Green) for hyponatremia and worsening renal function in outpt labs. He was admitted at [facility] from 10/04 to 10/07/2024 w ETOH hepatitis. He was then admitted at [facility] from 10/11 to 10/19/2023 for hepatic encephalopathy (intubated), HRS, MSSA pneumonia. His PETH score at [facility] was 138 even though he self reported that last ETOH intake was in "Thanksgiving". Thus liver transplant eval was suspended and he was seen by Addiction Medicine service, recommended to have inpt rehab but he declined. He also had declined OP Home Health services. Does have Liver Transplant clinic appt next month. Upon evaluation here, he was found to have no leukocytosis, stable anemia wo c/o overt GI bleeding (melena, rectal bleeding), INR 4.9, Na 125, BUN/Cr 4.5, Tbili 48, AST 48, ALT 23, Alk phos 74. MELD 40, Maddrey Discriminant Function score >32. He is AAOx3, + asterixis, + jaundice. Denies abd pain, n/v. He is accepted to both [facility] and [facility], awaiting bed available for transfer. Allergies Allergy/AdvReac Type Severity Reaction Status Date / Time acetaminophen Allergy Intermediate ELEVATED Verified 02/13/23 19:30 FEVER amoxicillin Allergy Intermediate UNKNOWN Verified 02/13/23 19:30 Penicillins Allergy Intermediate UNKNOWN Verified 02/13/23 19:30 acetylcysteine AdvReac Difficulty Verified 09/27/23 19:30 Breathing Home Medications Medication Instructions Recorded Confirmed Type folic acid 1 mg tablet 1 mg PO QAM #30 tabs 02/17/23 11/01/23 Rx furosemide 40 mg tablet 40 mg PO QAM #30 tabs 02/17/23 11/01/23 Rx spironolactone 100 mg tablet 100 mg PO QAM #30 tabs 02/17/23 11/01/23 Rx thiamine HCl (vitamin B1) 100 mg 100 mg PO QAM 10/04/23 11/01/23 History tablet pantoprazole 40 mg tablet,delayed 40 mg PO DAILY 30 days #30 tabs 10/07/23 11/01/23 Rx release potassium chloride 20 mEq 20 meq PO BID 30 days #60 tabs 10/07/23 11/01/23 Rx tablet,extended release(part/cryst) lactulose 10 gram/15 mL oral 45 ml PO Q12H 11/01/23 11/01/23 History solution (Constulose) midodrine 5 mg tablet 10 mg PO TID 11/01/23 11/01/23 History multivitamin with folic acid 400 0 tab PO QAM 11/01/23 11/01/23 History mcg tablet (Daily-Paul (with folic acid)) prednisolone sodium phosphate 15 15 mg PO UD 11/01/23 11/01/23 History mg/5 mL (3 mg/mL) oral solution rifaximin 550 mg tablet (Xifaxan) 550 mg PO BID 11/01/23 11/01/23 History urea 15 gram oral powder packet 15 g PO DAILY 11/01/23 11/01/23 History (Ure-Na) lactulose 10 gram/15 mL (15 mL) 30 g (45 mL) PO Q12H 14 days 11/02/23 Rx oral solution #1,260 mL pentoxifylline 400 mg 400 mg PO TID 14 days #42 tabs 11/02/23 Rx tablet,extended release Patient History Medical History Thrombocytopenia Alcohol use disorder Alcoholic hepatitis Ascites Esophageal varices History of deep venous thrombosis Liver cirrhosis SBP (spontaneous bacterial peritonitis) Surgical History No significant past surgical history Family History Grandmother (Maternal) Colorectal cancer Mother Stroke Social History Smoking Status: Former smoker Tobacco Type: E-cigarettes / Vaping Second Hand Exposure: No; Do You Dip or Chew Tobacco: No; Tobacco Cessation Education Requested by Patient: No Hx Alcohol Use: Yes Alcohol type: beer Hx Substance Use: No Preferred Language: [place] Communication Ability: Effective Communication Ability Comment: verbal Engine Tester Required: No Beliefs That Will Affect Care: None Current Living Situation: Family Current Living Situation Comment: with two teenage daughters Other Information That Helps Us Care for You: No Feels Safe at Home: Yes Safety Concerns: Feels Safe At This Time Assistive Devices: Walker Assistive Devices Comment: patient uses appropriately Review of Systems Review of Systems: All systems reviewed & are unremarkable except as noted in HPI & below Physical Exam Constitutional: WD/WN, vitals as above well groomed, cooperative and comfortable Eyes: icteric sclera, PERRLA ENMT: external ear and nose normal, oropharynx normal Respiratory: normal respiratory effort, lungs clear to auscultation Cardiovascular: RRR, no murmur, no edema Gastrointestinal (Abdomen): normal bowel sounds, soft, nontender, no hepatosplenomegaly (mild distension) Skin: no rashes, warm and dry + jaundice Neurologic: Motor/Sensory: + asterixis Psychiatric: A+Ox3, euthymic affect Lymphatic: + lymphedema Results & Data Vital Signs (Past 12 Hours) Vital Signs Temp Pulse Pulse Resp BP BP Pulse Ox 11/02/23 08:50 36.4 C L 92 H 20 116/62 97 11/02/23 07:34 93 H 11/02/23 04:10 36.5 C 84 22 100/60 95 11/01/23 23:00 36.5 C 86 22 112/63 97 11/01/23 22:05 85 O2 Del Method 11/02/23 08:50 Room Air 11/02/23 07:34 11/02/23 04:10 Room Air 11/01/23 23:00 Room Air 11/01/23 22:05 (3) Alcoholic cirrhosis Ascites presence: with ascites Qualified Code(s): K70.31 - Alcoholic cirrhosis of liver with ascites
[2023-11-02 09:43] LABS: Albumin Globulin Ratio 2.1 (0.9-2); Albumin Level 3.4 gm/dl (3.4-5.0); Bilirubin,Total 45.5 mg/dl (0.2-1.0); Globulin 1.6 gm/dl (2.5-4.0)
[2023-11-02] MEDS ORDERED: OCTREOTIDE ACETATE 100 MCG/ML VIAL SQ SCH (09:45)
[2023-11-02] MEDS ORDERED: FUROSEMIDE 40 MG/4 ML VIAL IV ONE (09:52)
--- NOTE | 2023-11-02 09:56 | Nephrology Consultation ---
Date of Consultation November 02, 2023 Assessment & Plan (1) FELI (acute kidney injury): (2) Decompensated hepatic cirrhosis: (3) Hyponatremia: FELI with high K and Low Na in the setting of Severe Decompensated Liver cirrhosis--current bili is 45+. Super high meld score. Now has FELI--etiology is HRS vs ATN. Since no definitive treatment for ATN will assume it is HRS and treat accordingly. High K worsened by Aldactone and K supplements. Low na is hypervoleic Hyponatremia in the setting of very Decompensated liver cirrhosis rec: 1 lasix 80 iv x 1 now--should bring the k down and hopefully raise serum na 2 Stop UREA. 3 Raise octreotide to 100 mcg q8hr 4 Continue Midodrine and Albumin--as part of triple therapy for HRS. 5 Transfer to liver transplant center. History of Present Illness Reason for Consultation: Feli, High K and low Na in patient with ESLD Attending Physician: Yinka Wong MD History of Present Illness 38/M with very Decompensated alcoholic cirrhosis of the liver with esophageal varices, history of alcoholic hepatitis was sent over by GI clinic due to abnormal lab results. patient is not in mood to talk in detail. labs shows Creat of 4, na 125 and k 5.9 this am. At home was on lasix, aldactone and kcl supplement. No nasal congestion, cough, sore throat, CP, SOB, N/V,abdominal pain, has been having brown stool with lactulose. No abdominal distention compared to baseline but legs have been more swollen. Last drink was around Thanksgiving per patient. Per outpatient chart review, patient was taken to [facility] after being found unconscious on 10/11 and was then life flighted from [facility] to [facility] for PNA and MSSA bacteremia. Was seen by hepatology there and prednisolone was d iscontinued. Diuretics were temporarily held and then resumed. Lactulose was prescribed at 45mg BID. Has an appt at [facility] hepatology on 12/05 for consideration of liver transplant. Now has Bili of 45 and very very yellow. Not much urine. ROS--Did not really want to talk. Physical Exam Physical Exam: General exam: Appears comfortable, no acute distress. very jaundiced HEENT: MM moist Neck: No JVD, neck is supple trachea is midline Respiratory system: Clear breath sounds bilaterally. Gastrointestinal: Abdomen is soft,Some ascites CVS: Regular rate and rhythm. No murmurs, rubs or gallops Musculoskeletal: No joint or muscle tenderness Extremities: 1+ edema Neuro: Oriented, no tremors, no focal neurological deficits Skin: No rashes, deep jaundice Allergies Allergy/AdvReac Type Severity Reaction Status Date / Time acetaminophen Allergy Intermediate ELEVATED Verified 02/13/23 19:30 FEVER amoxicillin Allergy Intermediate UNKNOWN Verified 02/13/23 19:30 Penicillins Allergy Intermediate UNKNOWN Verified 02/13/23 19:30 acetylcysteine AdvReac Difficulty Verified 09/27/23 19:30 Breathing Home Medications Medication Instructions Recorded Confirmed Type folic acid 1 mg tablet 1 mg PO QAM #30 tabs 02/17/23 11/01/23 Rx furosemide 40 mg tablet 40 mg PO QAM #30 tabs 02/17/23 11/01/23 Rx spironolactone 100 mg tablet 100 mg PO QAM #30 tabs 02/17/23 11/01/23 Rx thiamine HCl (vitamin B1) 100 mg 100 mg PO QAM 10/04/23 11/01/23 History tablet pantoprazole 40 mg tablet,delayed 40 mg PO DAILY 30 days #30 tabs 10/07/23 11/01/23 Rx release potassium chloride 20 mEq 20 meq PO BID 30 days #60 tabs 10/07/23 11/01/23 Rx tablet,extended release(part/cryst) lactulose 10 gram/15 mL oral 45 ml PO Q12H 11/01/23 11/01/23 History solution (Constulose) midodrine 5 mg tablet 10 mg PO TID 11/01/23 11/01/23 History multivitamin with folic acid 400 0 tab PO QAM 11/01/23 11/01/23 History mcg tablet (Daily-Paul (with folic acid)) prednisolone sodium phosphate 15 15 mg PO UD 11/01/23 11/01/23 History mg/5 mL (3 mg/mL) oral solution rifaximin 550 mg tablet (Xifaxan) 550 mg PO BID 11/01/23 11/01/23 History urea 15 gram oral powder packet 15 g PO DAILY 11/01/23 11/01/23 History (Ure-Na) Patient History Medical History Thrombocytopenia Alcohol use disorder Alcoholic hepatitis Ascites Esophageal varices History of deep venous thrombosis Liver cirrhosis SBP (spontaneous bacterial peritonitis) Surgical History No significant past surgical history Family History Grandmother (Maternal) Colorectal cancer Mother Stroke Social History Smoking Status: Former smoker Tobacco Type: E-cigarettes / Vaping Second Hand Exposure: No; Do You Dip or Chew Tobacco: No; Tobacco Cessation Education Requested by Patient: No Hx Alcohol Use: Yes Alcohol type: beer Hx Substance Use: No Preferred Language: Italian Communication Ability: Effective Communication Ability Comment: verbal Deputy Sheriff Custody Required: No Beliefs That Will Affect Care: None Current Living Situation: Family Current Living Situation Comment: with two teenage daughters Other Information That Helps Us Care for You: No Feels Safe at Home: Yes Safety Concerns: Feels Safe At This Time Assistive Devices: Walker Assistive Devices Comment: patient uses appropriately Results & Data Vital Signs (Past 12 Hours) Vital Signs Temp Pulse Pulse Resp BP BP Pulse Ox 11/02/23 08:50 36.4 C L 92 H 20 116/62 97 11/02/23 07:34 93 H 11/02/23 04:10 36.5 C 84 22 100/60 95 11/01/23 23:00 36.5 C 86 22 112/63 97 11/01/23 22:05 85 O2 Del Method 11/02/23 08:50 Room Air 11/02/23 07:34 11/02/23 04:10 Room Air 11/01/23 23:00 Room Air 11/01/23 22:05
[2023-11-02] MEDS ORDERED: OCTREOTIDE ACETATE 50 MCG in SYRINGE 9.5 ML IV SCH (10:00)
[2023-11-02] MEDS ORDERED: OCTREOTIDE ACETATE 100 MCG in SYRINGE 9 ML IV SCH (10:15)
--- NOTE | 2023-11-02 11:38 | Discharge Summary ---
Discharge Summary Date of Service November 02, 2023 Notes For Next Care Provider Medication Changes From Visit Please refer to assessment and plan below Admission HPI Per Admitting Provider This is a 38-year-old male with PMH of alcoholic cirrhosis of the liver with esophageal varices, history of alcoholic hepatitis, thrombocytopenia, tobacco use and other medical problems listed below who was sent over by GI clinic due to abnormal lab results. Was noted to have creatinine of 2.5, T. bili of 42. Over the weekend on Tuesday had a temp of 100 F and had malaise but since then has felt better. No nasal congestion, cough, sore throat, CP, SOB, N/V,abdominal pain, has been having brown stool with lactulose. No abdominal distention compared to baseline but legs have been more swollen. Last drink was around Thanksgiving per patient. Per outpatient chart review, patient was taken to [facility] after being found unconscious on 10/11 and was then life [place] [facility] [place] [facility] [place] and MSSA bacte[place]. Was seen by hepatology there and prednisolone was discontinued. Diuretics were temporarily held and then resumed. Lactulose was prescribed at 45mg BID. Has an appt at [facility] [place] on 12/05 for consideration of liver transplant. Admission Exam Per Admitting Provider General: Severely jaundiced Eyes: PERRL, conjunctivae normal, not pale, +icteric sclerae, EOM intact bilaterally ENMT: External ear and nose normal, oropharynx normal Respiratory: Normal respiratory effort, no respiratory distress, lungs clear to auscultation, no crackles and no wheezes Cardiovascular: RRR S1 S2 Gastrointestinal (Abdomen): Abdomen is mild distended, soft, non-tender to palpation, normal bowel sounds Musculoskeletal: +bilateral pedal edema Neurologic: Alert and oriented x 3, No focal weakness, sensation grossly intact Psychiatric: Euthymic affect Principal Dx & Hospital Course #1 = Principal Diagnosis (1) Elevated bilirubin: (2) Decompensated HCV cirrhosis: (3) Alcoholic hepatitis: (4) FELI (acute kidney injury): (5) Thrombocytopenia: (6) Hyponatremia: Plan Per admitting service notes with addendum: This is a 38-year-old male with PMH of alcoholic cirrhosis of the liver with esophageal varices, history of alcoholic hepatitis, thrombocytopenia, tobacco use and other medical problems listed below who was sent over by GI clinic due to abnormal lab results and presents with decompensated liver cirrhoses and hepatitis. Per outpatient chart review, patient was taken to [facility] after being found unconscious on 10/11 and was then life flighted from [facility] [place] [facility] [place] and MSSA bacteremia. Was seen by hepatology there and prednisolone was discontinued. Diuretics were temporarily held and then resumed. Lactulose was prescribed at 45mg BID. Has an appt [place] [facility] [place] on 12/05 for consideration of liver transplant. Last drink was "around Thanksgiving time." Decompensated cirrhosis Hepatitis Tbili 48.9, procal 2.98, POC Cr 4.9, Na 125, INR 4.3 MELD score is 40 [facility] recommending transfer back [place] [facility] given significant decompensation - [facility] [place] [facility] both accepted the patient for further end-stage liver care however is awaiting a bed at both places, >24 hrs Will medically manage here until able to be transferred to tertiary care facility Per discussion with GI, continue albumin Q8H, midodrine 5mg TID, prednisolone 40mg daily, hold diuretics Received dose of Rochein in the ED. Afebrile, no abd pain so low concern for SBP. Will hold off on additional abx for now - follow blood culture Continue lactulose and rifaximin 11/02 Awake, alert, oriented x 3 Denies chest pain, shortness of breath, abdominal pain, nausea vomiting Has any other symptoms GI consulted Albumin 25% 25 g IV every 8 hours Octreotide 100 mcg IV every 8 hours Pentoxifylline 400 mg p.o. 3 times daily next Rifaximin, lactulose, midodrine continued Transfer to [facility] today FELI POC Cr 4.9, was 2.5 yesterday in clinic (baseline Cr ~1) Serum Cr testing was performed but not reported as result was compromised due to icterus Nephrology consulted 11/02 Creatinine 4.0 Potassium 5.9 Albumin, octreotide Hyponatremia In setting of cirrhosis as above. Na 125. Repeat BMP in AM 11/02 Sodium 124 DVT Ppx: SCDs Code status: FULL PCP: Cristy Dispo: Transfer to [facility] Exam General- oriented x 3, not in distress, speaks in sentences with no effort or accessory muscle use Eyes-positive icterus Neck- no JVD Lungs- clear breath sounds bilaterally, no rales/wheezes Heart- normal rate, regular rhythm; no murmurs Abdomen- normal bowel sounds, mildly distended, soft, nontender Extremities-positive jaundice Neuro- alert, oriented x 3; no gross focal neurologic deficits Skin- warm & dry Updated Medication List Medication Instructions Recorded Confirmed Type folic acid 1 mg tablet 1 mg PO QAM #30 tabs 02/17/23 11/01/23 Rx furosemide 40 mg tablet 40 mg PO QAM #30 tabs 02/17/23 11/01/23 Rx spironolactone 100 mg tablet 100 mg PO QAM #30 tabs 02/17/23 11/01/23 Rx thiamine HCl (vitamin B1) 100 mg 100 mg PO QAM 10/04/23 11/01/23 History tablet pantoprazole 40 mg tablet,delayed 40 mg PO DAILY 30 days #30 tabs 10/07/23 11/01/23 Rx release potassium chloride 20 mEq 20 meq PO BID 30 days #60 tabs 10/07/23 11/01/23 Rx tablet,extended release(part/cryst) lactulose 10 gram/15 mL oral 45 ml PO Q12H 11/01/23 11/01/23 History solution (Constulose) midodrine 5 mg tablet 10 mg PO TID 11/01/23 11/01/23 History multivitamin with folic acid 400 0 tab PO QAM 11/01/23 11/01/23 History mcg tablet (Daily-Paul (with folic acid)) prednisolone sodium phosphate 15 15 mg PO UD 11/01/23 11/01/23 History mg/5 mL (3 mg/mL) oral solution rifaximin 550 mg tablet (Xifaxan) 550 mg PO BID 11/01/23 11/01/23 History urea 15 gram oral powder packet 15 g PO DAILY 11/01/23 11/01/23 History (Ure-Na) lactulose 10 gram/15 mL (15 mL) 30 g (45 mL) PO Q12H 14 days 11/02/23 Rx oral solution #1,260 mL pentoxifylline 400 mg 400 mg PO TID 14 days #42 tabs 11/02/23 Rx tablet,extended release Hospital Stay Data Consultations 11/01/23 12:50 Consult Gastroenterology Routine 11/01/23 13:23 ED Decision to Admit Stat 11/01/23 15:47 Consult Nephrology Stat Pending Results Patient Have Any Pending Studies at Discharge: No Discharge Instructions Given to Patient (Per Discharging Provider) Please refer to accompanying hospital for summary for further details Total Time Total Time Spent Total Time Spent (In Minutes): >30 minutes
[2023-11-02 11:58] VITALS: TEMP 97.7; O2SAT 96
[2023-11-02] MEDS ORDERED: MIDODRINE HCL 10 MG TAB PO SCH (12:00)
[2023-11-02] MEDS ORDERED: PENTOXIFYLLINE 400MG EXT REL TAB PO SCH (14:00)
[2023-11-02 14:43] VITALS: BP 116/62
== END 2023-11-02 15:13 | disposition short-term general hospital (02) | DRG 433 ==
LOC: ED 10:54 → SUATTDRO 15:57 → EDINP 15:57 → 2S 18:30
DX: Z88.1 Allergy status to other antibiotic agents; N17.9 Acute kidney failure, unspecified; J98.11 Atelectasis; E87.1 Hypo-osmolality and hyponatremia; K70.10 Alcoholic hepatitis without ascites; Z88.0 Allergy status to penicillin; Z87.891 Personal history of nicotine dependence; I85.10 Secondary esophageal varices without bleeding; F10.21 Alcohol dependence, in remission; B19.20 Unspecified viral hepatitis C without hepatic coma; K70.30 Alcoholic cirrhosis of liver without ascites